=== PATIENT | female | born 1980 | race African-American/Black ===

== ENCOUNTER 2019-11-30 22:41 | Emergency (ER) | payer OTHER, SELFPAY ==
--- NOTE | ~2019-11-30 | XR_ITS ---
EXAMINATION: XR chest 2V EXAM DATE: 11/30/2019 23:05 INDICATION: Left-sided chest pain. Shortness of breath, cough, nausea and vomiting. TECHNIQUE: Frontal and lateral projections of the chest obtained and reviewed. Comparison is made to prior examination from 12/24/2018. FINDINGS: The lungs are clear. There are no pleural effusions. The cardiomediastinal silhouette is within normal limits. There is no pneumothorax suspected. Mild mid thoracic dextroscoliosis. There are cholecystectomy clips. There is no significant interval change. IMPRESSION: No acute cardiopulmonary findings. Reviewed, dictated and finalized at location G.
--- NOTE | ~2019-11-30 | CT_ITS ---
EXAMINATION: CTA chest PE abdomen pel DATE: 12/01/2019 00:26 INDICATION: Chest pain, left upper quadrant pain, nausea and vomiting TECHNIQUE: Computed tomography angiography (CTA) of the chest was performed with 100 mL Omnipaque-350 intravenous contrast timed to evaluate the pulmonary arteries. Subsequent postcontrast images of the abdomen and pelvis are obtained. Coronal maximum intensity projection 3D-reconstructions were create d by the technologist. The dose-length product (DLP) was 738.14 mGy-cm. Automated exposure control an d iterative reconstruction technique were employed. COMPARISON: 12/20/2018 FINDINGS: CTA CHEST: The pulmonary arteries are well-opacified. No pulmonary embolism is identified. The lungs are free of acute opacities. There is no pleural effusion or pneumothorax. No pathologically enlarge d thoracic lymph nodes are identified. The heart size is normal. ABDOMEN/PELVIS CT: The gallbladder is surgically absent. There is a small sliding hiatal hernia. The liver, spleen, pancreas, and adrenal glands are normal. The kidneys are unremarkable. No pathological ly enlarged abdominal or pelvic lymph nodes are identified. There is no free intraperitoneal gas or e vidence of bowel obstruction. An IUD is present in the uterus in expected position. Changes of umbili britton hernia repair are noted. There are subserosal fibroids of the uterus. The appendix is normal. IMPRESSION: 1. No pulmonary embolism or acute cardiopulmonary abnormality. 2. No acute abnormality of the abdomen or pelvis. Reviewed, dictated and finalized at location B.
--- NOTE | 2019-11-30 22:42 | ECG_ITS ---
Measurements Intervals [place] Rate: 77 P: 40 IN: 147 QRS: 5 QRSD: 80 T: 34 QT: 367 QTc: 416 Interpretive Statements SINUS RHYTHM WITH SINUS ARRHYTHMIA BASELINE ARTIFACT- I, III, AVL, AVF NORMAL ECG Electronically Signed On 12-01-2019 7:05:07 CDT by Vicente Hanks D.O.
[2019-11-30 22:46] VITALS: BP 118/78; PULSE 73; RESP 12; TEMP 37.1; O2SAT 100
--- NOTE | 2019-11-30 23:04 | ED.CHESTPAIN ---
HPI - Chest Pain General Chief Complaint: Chest Pain Stated Complaint: im having chest pains Time Seen by Provider: 11/30/19 22:47 Source: RN notes reviewed History of Present Illness HPI narrative: Patient presents emergency department from home for chest pain and back. Patient states the pain is been present for the past 3 days. The pain is located in the lower left chest and upper left abdomen and radiates into the back in the same region. Described as sharp and stabbing in nature. Patient states she began to have vomiting starting yesterday and today as well as began to have a cough today. She denies any fevers or chills diarrhea or any other symptoms. States she tried taking Tylenol 4 hours ago but threw it back up Related Data Allergies Allergy/AdvReac Type Severity Reaction Status Date / Time clindamycin Allergy Unknown Unknown Verified 11/30/19 22:41 Sulfa (Sulfonamide Allergy Unknown Unknown Verified 11/30/19 22:41 Antibiotics) Review of Systems Review of Systems: Narrative: Gen.: Denies fevers or chills ENT: Denies congestion Respiratory: Denies shortness of breath or cough CV: See HPI GI: See HPI denies burning, urgency, frequency or hematuria Musculoskeletal: Denies back pain or muscle pain Neuro: Denies numbness, tingling, weakness or focal weakness Skin: Denies rash Except as documented, all other systems reviewed and negative [facility] Past Medical History Medical History (Updated 12/01/19 @ 03:04 by Florentino Ramos DO) Patient denies significant medical history Surgical History Surgical History History of cholecystectomy Family History Family History (Updated 06/29/16 @ 08:18 by DOCTOR UNKNOWN) Mother Hypertension Family history of type 2 diabetes mellitus Father Patient's father is in good health Other Asthma Family history of thyroid disease Social History Social History Smoking status: Never smoker Second hand tobacco smoke exposure: No Alcohol intake: never Exam Narrative: Exam Narrative: APPEARANCE: No acute distress, nontoxic, resting in bed HEENT: Normocephalic, atraumatic, OMM RESPIRATORY: No respiratory distress, clear to auscultation bilaterally with no rhonchi wheezing or rales CARDIOVASCULAR: RRR s murmur ABDOMINAL: Soft, nondistended, tender palpation left upper quadrant, no tenderness right upper quadrant, right lower quadrant left lower quadrant, no rebound or guarding MUSCULOSKELETAl: Moves all extremities. No clubbing, cyanosis or edema. Back: No midline thoracic lumbar tenderness palpation, tender palpation bilateral paravertebral muscles T6-10 pain increased with movement of the torso and deep inspiration NEURO: Awake and alert. Following commands, speech normal, no focal deficits SKIN:: Warm, dry. Normal Color PSYCHIATRIC: Normal affect/mood Course Course Emergency Course: Patient states pain is improved with medication Patient having cough nausea oral test for COVID discussed with patient who is in agreement Discussed with patient results of workup and diagnosis. Discussed need for follow-up with primary care, proper use of medication, and reasons to return to the emergency department. Patient understands and agrees to current treatment plan Vital Signs Vital signs: Vital Signs Temperature 98.8 F 11/30/19 22:46 Pulse Rate 73 11/30/19 22:46 Respiratory Rate 12 11/30/19 22:46 Blood Pressure 118/78 11/30/19 22:46 Pulse Oximetry 100 11/30/19 22:46 Temperature 98.8 F 11/30/19 23:50 Pulse Rate 62 11/30/19 23:29 Respiratory Rate 14 11/30/19 23:29 Blood Pressure 120/71 11/30/19 23:29 Pulse Oximetry 100 11/30/19 23:29 MDM - Chest Pain MDM Narrative Medical decision making narrative: Patient's EKGs and labs are without significant high risk changes. Cardiac risk factors reviewed. Patient is felt li
[2019-11-30 23:06] LABS: Basophils Percent Auto 0.3 % (0.2-1.2); Eosinophils Absolute Auto 0.1 K/mm3 (0-0.3); Eosinophils Percent Auto 1.1 % (0-4.4); Hematocrit 39.1 % (37.0-47.0); Hemoglobin 13.1 g/dL (12.0-15.0); Immature Granulocyte Absolute 0.03 K/mm3 (0.00-0.031); Immature Granulocyte Percent A 0.4 % (0-0.5); Lymphocytes Absolute Auto 2.44 K/mm3 (0.9-3.2); Lymphocytes Percent Auto 30.8 % (18.3-44.2); Mean Corpuscular HGB Conc 33.5 g/dl (32-36); Mean Corpuscular Hemoglobin 30.3 pg (26-34); Mean Corpuscular Volume 90.3 fl (80-100); Mean Platelet Volume 10.7 fl (7.4-10.4); Monocytes Absolute Auto 0.4 K/mm3 (0.1-0.6); Monocytes Percent Auto 4.5 % (2.6-8.5); Neutrophils Percent Auto 62.9 % (45.5-73.1); Platelet Count Result 302 k/mm3 (150-375); Red Blood Count 4.33 M/mm3 (4.2-5.4); Red Cell Distribution Width 13.9 % (11.5-14.5); White Blood Count 7.9 K/mm3 (4.5-10.0)
[2019-11-30 23:07] VITALS: PULSE 71; O2SAT 100
[2019-11-30 23:14] LABS: Prothrombin Time 12.7 Seconds (11.1-14.7)
[2019-11-30 23:15] LABS: Anion Gap 8 mmol/L (8-16); Blood Urea Nitrogen 12 mg/dL (7-17); Carbon Dioxide 24 mmol/L (22-30); Chloride 105 mmol/L (98-107); Estimated CRCL calculation 88 ml/min; Estimated Glomerular Filt Rate > 60; Glucose 88 mg/dL (65-105); Partial Thromboplastin Time 31.3 SECONDS (22.3-36.8); Potassium 3.5 mmol/L (3.4-5.0); Sodium 137 mmol/L (137-145)
[2019-11-30] MEDS: FAMOTIDINE 20 MG/2 ML VIAL IV PUSH (23:20)
[2019-11-30] MEDS: ONDANSETRON INJ 4 MG/2 ML VIAL IV PUSH (23:20)
[2019-11-30] MEDS: KETOROLAC 30 MG/ML VIAL (*BKC) IV PUSH (23:20)
[2019-11-30] MEDS: SODIUM CHLORIDE 0.9% IV 1,000 ML 999 ML IV CONT (23:20)
[2019-11-30 23:27] LABS: Troponin I < 0.012 ng/mL (0.000-0.034)
[2019-11-30 23:28] LABS: Alanine Aminotransferase 12 U/L (4-35); Albumin Level 4.5 g/dL (3.5-5.1); Alkaline Phosphatase 105 U/L (38-126); Aspartate Amino Transferase 19 U/L (14-36); Bilirubin,Total 0.3 mg/dL (0.2-1.3); Lipase 36 U/L (23-300)
[2019-11-30 23:29] VITALS: BP 120/71; PULSE 62; RESP 14; O2SAT 100
[2019-11-30 23:30] LABS: Add Urine Microscopic? YES; Appearance Urine Clear (Clear); Bacteria Urine Trace /hpf; Bilirubin Urine Negative (Negative); Blood Urine Negative (Negative); Color Urine Yellow (Yellow); Glucose Urine UA Negative (Negative); Ketones Urine Negative (Negative); Leukocyte Esterase Ur Trace LEU/UL (Negative); Mucus Urine Rare /lpf; Nitrate Urine Negative (Negative); Protein Urine Negative (Negative); RBC Urine 0-2 /hpf (0-2); Specific Grav Ur 1.011 (1.001-1.035); Squamous Epithelial Cell Urine Few /hpf (Few); Urobilinogen Urine Negative mg/dL (<2.0); WBC Urine 0-3 /hpf
[2019-11-30 23:44] LABS: D Dimer 0.92 ug/mL (<0.48)
[2019-11-30 23:50] VITALS: TEMP 37.1
[2019-12-01 00:30] VITALS: BP 137/94; PULSE 66; RESP 14; O2SAT 100
[2019-12-01 02:00] VITALS: BP 126/85; PULSE 63; RESP 15; O2SAT 100
[2019-12-01 02:12] LABS: Troponin I < 0.012 ng/mL (0.000-0.034)
[2019-12-01] MEDS: MORPHINE SULFATE 2 MG/ML INJ IV PUSH (02:38)
[2019-12-01 03:08] VITALS: TEMP 37.1
[2019-12-01 03:21] VITALS: BP 125/79; PULSE 61; RESP 17; TEMP 36.4; O2SAT 100
[2019-12-01 14:05] LABS: SARS-CoV-2 RNA PCR Negative
== END 2019-12-01 03:24 | disposition home or self-care (01) ==
PROVIDERS: Emergency Provider Emergency Medicine; PCP Nurse Practitioner Family
DX: R07.89 Other chest pain (principal); J06.9 Acute upper respiratory infection, unspecified; R11.2 Nausea with vomiting, unspecified; Z20.828 Contact with and (suspected) exposure to other viral communicable diseases
CPT/HCPCS: 36415; 71046; 71275; 74177; 80048; 80076; 81001; 81025; 83690; 84484; 85025; 85380; 85610; 85730; 87635; 93005; 96361; 96374; 96375; 99284; A9270; C9803; J1885; J2270; J2405; J7030; Q9967; U0003

== ENCOUNTER 2020-05-12 15:10 | Emergency (ER) | payer OTHER, SELFPAY ==
--- NOTE | ~2020-05-12 | XR_ITS ---
EXAMINATION: XR knee LT 3V EXAM DATE: 05/12/2020 16:04 INDICATION: Generalized left knee pain, fell on ice 4 days ago. Initial encounter. TECHNIQUE: Left knee frontal, crosstable lateral, orthogonal oblique projections for interpretation. There is no prior study for comparison. FINDINGS: No evidence osteochondral defect or joint body in the left knee joint. There are no acute fractures or dislocations identified. There is no subcutaneous gas. The soft tissue is unremarkabl e. There are no radiopaque foreign bodies. IMPRESSION: No acute osseous findings. Reviewed, dictated and finalized at location A. 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
[2020-05-12 15:20] VITALS: BP 113/73; PULSE 89; RESP 18; TEMP 36.3; O2SAT 100
[2020-05-12] MEDS: IBUPROFEN 600 MG TABLET PO (15:54)
[2020-05-12] MEDS: HYDROcodone/acetaminophen (*CRX) 5-325 MG TABLET 1 TAB PO (15:54)
--- NOTE | 2020-05-12 16:25 | ED.LOWEXIN ---
HPI - Extremity Injury (Lower) General Chief Complaint: Extremity Injury, Lower Stated Complaint: left leg pain Time Seen by Provider: 05/12/20 15:28 Source: patient Mode of arrival: ambulatory Limitations: no limitations History of Present Illness HPI Narrative: Patient 39 years old -[place] female had a fall on ice 4 days ago landing on both knees, complaining of left knee pain. Patient denies other injuries. Related Data Home Medications Medication Instructions Recorded Confirmed No Home Medications 05/12/20 05/12/20 Allergies Allergy/AdvReac Type Severity Reaction Status Date / Time clindamycin Allergy Unknown Unknown Verified 05/12/20 15:24 Sulfa (Sulfonamide Allergy Unknown Unknown Verified 05/12/20 15:24 Antibiotics) Review of Systems Review of Systems: Narrative: CONSTITUTIONAL: Denies fever, chills, or sweats. EYES: Denies visual changes, redness, or discharge. ENT: Denies rhinorrhea, congestion, sore throat, or otalgia. CARDIOVASCULAR: Denies chest pain, palpitations, or edema. RESPIRATORY: Denies cough or dyspnea. GASTROINTESTINAL: Denies abdominal pain, nausea, vomiting, or diarrhea. GENITOURINARY: Denies dysuria or hematuria. SKIN: Denies rash or itching. MUSCULOSKELETAL: Denies back pain, joint pain, or myalgia. NEUROLOGIC: Denies headache, numbness, or weakness. PSYCHIATRIC: Denies anxiety or depression. [facility] Past Medical History Medical History Patient denies significant medical history Surgical History Surgical History History of cholecystectomy Family History Family History Mother Hypertension Family history of type 2 diabetes mellitus Father Patient's father is in good health Other Asthma Family history of thyroid disease Social History Social History Smoking status: Never smoker Second hand tobacco smoke exposure: No Alcohol intake: never Exam Narrative: Exam Narrative: Stable Course Course Emergency Course: Stable Vital Signs Vital signs: Vital Signs Temperature 36.3 C L 05/12/20 15:20 Pulse Rate 89 05/12/20 15:20 Respiratory Rate 18 05/12/20 15:20 Blood Pressure 113/73 05/12/20 15:20 Pulse Oximetry 100 05/12/20 15:20 Temperature 36.3 C L 05/12/20 15:20 Pulse Rate 89 05/12/20 15:20 Respiratory Rate 18 05/12/20 15:20 Blood Pressure 113/73 05/12/20 15:20 Pulse Oximetry 100 05/12/20 15:20 MDM - Extremity Injury (Lower) MDM Narrative Medical decision making narrative: Left knee contusion/patellar fracture is my concern. X-ray left knee ordered. Further plan to follow Imaging Data Radiologist's impression: Impressions Knee X-Ray 05/12/20 16:05 IMPRESSION: No acute osseous findings. Critical Care Time Critical Care Time Critical Care Time: No Discharge Plan Discharge Clinical Impression: Contusion of knee, left Qualifiers: Encounter type: initial encounter Qualified Code(s): S80.02XA - Contusion of left knee, initial encounter Patient Disposition: Home, Self-Care Condition: Stable Instructions: Antibiotic Form, Knee Pain (ED) Additional Instructions: Return if symptoms are worsening , call your family physician for appointment, take Tylenol as as needed for aches and pain, continue home medications. Prescriptions: No Action No Home Medications RF: 0 Follow-up/Referrals: PHYSICIAN,BOOT REPAIRER [Primary Care Provider] -
== END 2020-05-12 17:08 | disposition home or self-care (01) ==
PROVIDERS: Emergency Provider Emergency Medicine
DX: S80.02XA Contusion of left knee, initial encounter (principal); W00.0XXA Fall on same level due to ice and snow, initial encounter
CPT/HCPCS: 73562; 99283; A9270

== ENCOUNTER 2020-06-20 20:04 | Emergency (ER) | payer OTHER, SELFPAY ==
--- NOTE | ~2020-06-20 | CT_ITS ---
EXAMINATION: CT abdomen pelvis w con DATE: 06/20/2020 22:36 INDICATION: Abdominal pain. Vomiting. TECHNIQUE: Computed tomography (CT) of the abdomen and pelvis was performed with 100 mL Omnipaque 350 intravenous contrast. Automated exposure control and iterative reconstruction technique were employe d. The dose-length product was 554.19 mGy-cm. COMPARISON: CT abdomen and pelvis 12/01/2019 FINDINGS: The visualized portions of the lung bases demonstrate mild atelectasis. No pleural effusion . The heart size normal. No pericardial effusion. The liver and spleen are normal. There are changes of cholecystectomy. The pancreas, adrenal glands, and kidneys are normal. There is an intrauterine de vice in expected position. There are fibroids in the uterus measuring up to 3.4 cm. There is divertic ulosis of the colon without evidence of diverticulitis. There are no dilated loops of bowel. The appe ndix is normal. There are changes of ventral hernia repair. There are no pathologically enlarged lymp h nodes. There is no free intraperitoneal fluid. There is mild thoracic spondylosis. IMPRESSION: 1. Uterine fibroids. Reviewed, dictated and finalized at location A. IMPRESSION: 1. Uterine fibroids.
[2020-06-20 20:06] VITALS: BP 124/88; PULSE 84; RESP 18; TEMP 36.3; O2SAT 99
--- NOTE | 2020-06-20 20:10 | ECG_ITS ---
Measurements Intervals [place] Rate: 79 P: 44 GA: 151 QRS: 6 QRSD: 74 T: 53 QT: 350 QTc: 402 Interpretive Statements SINUS RHYTHM WITH MARKED SINUS ARRHYTHMIA DELAYED PRECORDIAL R/S TRANSITION BORDERLINE ECG Electronically Signed On 06-21-2020 7:08:07 CDT by Vicente Hanks D.O.
[2020-06-20 20:23] LABS: Basophils Percent Auto 0.2 % (0.2-1.2); Eosinophils Absolute Auto 0.1 K/mm3 (0-0.3); Eosinophils Percent Auto 0.7 % (0-4.4); Hematocrit 39.3 % (37.0-47.0); Immature Granulocyte Absolute 0.03 K/mm3 (0.00-0.031); Immature Granulocyte Percent A 0.4 % (0-0.5); Lymphocytes Absolute Auto 1.59 K/mm3 (0.9-3.2); Lymphocytes Percent Auto 19.2 % (18.3-44.2); Mean Corpuscular HGB Conc 33.1 g/dl (32-36); Mean Corpuscular Hemoglobin 30.2 pg (26-34); Mean Corpuscular Volume 91.4 fl (80-100); Mean Platelet Volume 10.4 fl (7.4-10.4); Monocytes Absolute Auto 0.3 K/mm3 (0.1-0.6); Monocytes Percent Auto 3.5 % (2.6-8.5); Neutrophils Absolute Auto 6.3 K/mm3 (1.3-6.7); Platelet Count Result 300 k/mm3 (150-375); Red Cell Distribution Width 14.1 % (11.5-14.5); White Blood Count 8.3 K/mm3 (4.5-10.0)
[2020-06-20 20:36] LABS: Alanine Aminotransferase 15 U/L (4-35); Albumin Level 4.3 g/dL (3.5-5.1); Alkaline Phosphatase 88 U/L (38-126); Anion Gap 6 mmol/L (8-16); Aspartate Amino Transferase 19 U/L (14-36); Bilirubin,Total < 0.1 mg/dL (0.2-1.3); Blood Urea Nitrogen 14 mg/dL (7-17); Carbon Dioxide 28 mmol/L (22-30); Chloride 104 mmol/L (98-107); Estimated CRCL calculation 70 ml/min; Estimated Glomerular Filt Rate > 60; Glucose 126 mg/dL (65-105); Lipase 59 U/L (23-300); Potassium 3.9 mmol/L (3.4-5.0); Sodium 138 mmol/L (137-145)
--- NOTE | 2020-06-20 22:11 | ED.ABDPAIN ---
HPI - Abdominal Pain General Chief Complaint: Abdominal Pain Stated Complaint: Chest Pain, ABD pain, Vomiting Time Seen by Provider: 06/20/20 21:40 Source: patient and RN notes reviewed Limitations: no limitations History of Present Illness HPI narrative: Patient is 40 years old -[place] female presents with abdominal pain for the last 2 months associated with vomiting almost daily. Patient reported abdominal pain as sharp, mid abdomen, no radiation, patient noticed decreased urination lately. Patient denies any fever or chills. No history of abdominal surgery. Patient denies smoking, drinking or drug use.. Patient reported history of IBS Related Data Allergies Allergy/AdvReac Type Severity Reaction Status Date / Time clindamycin Allergy Unknown Unknown Verified 05/12/20 15:24 Sulfa (Sulfonamide Allergy Unknown Unknown Verified 05/12/20 15:24 Antibiotics) Review of Systems Review of Systems: Narrative: CONSTITUTIONAL: Denies fever, chills, or sweats. EYES: Denies visual changes, redness, or discharge. ENT: Denies rhinorrhea, congestion, sore throat, or otalgia. CARDIOVASCULAR: Denies chest pain, palpitations, or edema. RESPIRATORY: Denies cough or dyspnea. GASTROINTESTINAL: Denies abdominal pain, nausea, vomiting, or diarrhea. GENITOURINARY: Denies dysuria or hematuria. SKIN: Denies rash or itching. MUSCULOSKELETAL: Denies back pain, joint pain, or myalgia. NEUROLOGIC: Denies headache, numbness, or weakness. PSYCHIATRIC: Denies anxiety or depression. PMFSH Past Medical History Medical History Patient denies significant medical history Surgical History Surgical History History of cholecystectomy Family History Family History Mother Hypertension Family history of type 2 diabetes mellitus Father Patient's father is in good health Other Asthma Family history of thyroid disease Social History Social History Smoking status: Never smoker Second hand tobacco smoke exposure: No Alcohol intake: never Exam Narrative: Exam Narrative: General appearance: Well-developed, well-nourished Skin: Normal color Head: Normocephalic, nontraumatic Eyes: Clear conjunctiva ENT: Oropharynx normal, ears normal, nose normal Neck: Supple, nontender Chest and respiratory: Airway patent, no respiratory distress, no accessory muscle use Heart: Regular rate/rhythm Abdomen: Soft, diffuse tenderness no guarding or rebound, no organomegaly, quiet bowel sounds Vascular: Normal peripheral pulses, normal capillary refill. Musculoskeletal: Normal range of motion, nontender back Neurologic: Alert and oriented ?3, CLIENT INSIGHTS CONSULTANT is normal as tested, no gross motor deficit Course Course Emergency Course: Stable Vital Signs Vital signs: Vital Signs Temperature 36.3 C L 06/20/20 20:06 Pulse Rate 84 06/20/20 20:06 Respiratory Rate 18 06/20/20 20:06 Blood Pressure 124/88 06/20/20 20:06 Pulse Oximetry 99 06/20/20 20:06 Temperature 36.3 C L 06/20/20 20:06 Pulse Rate 80 06/20/20 23:20 Respiratory Rate 18 06/20/20 23:20 Blood Pressure 124/88 06/20/20 20:06 Pulse Oximetry 100 06/20/20 23:20 MDM - Abdominal Pain MDM Narrative Medical decision making narrative: Patient presents with abdominal pain for the last 2 months associated with vomiting. Labs, IV fluid, CT abdomen and pelvis with IV contrast ordered. Further plan to follow Differential Diagnosis Differential diagnosis: Likely abdominal pain, acute appendicitis
[2020-06-20] MEDS: SODIUM CHLORIDE 0.9% IV 1,000 ML 999 ML IV CONT (22:18)
[2020-06-20] MEDS: HYDROmorphone HCL INJ (*CRX) 1 MG/ML SYR 0.5 MG IV PUSH (22:19)
[2020-06-20] MEDS: ONDANSETRON INJ 4 MG/2 ML VIAL IV PUSH (22:19)
[2020-06-20 22:43] LABS: Add Urine Microscopic? YES; Appearance Urine Cloudy (Clear); Bacteria Urine Trace /hpf; Bilirubin Urine Negative (Negative); Blood Urine Negative (Negative); Color Urine Yellow (Yellow); Glucose Urine UA Negative (Negative); Ketones Urine Negative (Negative); Leukocyte Esterase Ur Negative LEU/UL (Negative); Mucus Urine Rare /lpf; Nitrate Urine Negative (Negative); Protein Urine Negative (Negative); RBC Urine 0-2 /hpf (0-2); Specific Grav Ur 1.019 (1.001-1.035); Squamous Epithelial Cell Urine Moderate /hpf (Few); WBC Urine 0-3 /hpf
[2020-06-20 23:20] VITALS: PULSE 80; RESP 18; O2SAT 100
[2020-06-21] MEDS: LORazepam INJ (*CRX) 2 MG/ML VIAL 0.5 MG IV PUSH (00:15)
[2020-06-21 00:20] VITALS: BP 139/84; PULSE 70; RESP 19; O2SAT 100
== END 2020-06-21 00:20 | disposition home or self-care (01) ==
PROVIDERS: Emergency Medicine; Emergency Provider Emergency Medicine
DX: R10.84 Generalized abdominal pain (principal); D25.9 Leiomyoma of uterus, unspecified
CPT/HCPCS: 36415; 74177; 80053; 81001; 81025; 83690; 85025; 93005; 96361; 96374; 96375; 99284; J1170; J2060; J2405; J7030; Q9967

== ENCOUNTER 2020-10-04 22:52 | Emergency (ER) | payer OTHER, SELFPAY ==
--- NOTE | ~2020-10-04 | XR_ITS ---
EXAMINATION: XR thoracic spine 2V DATE: 10/05/2020 01:43 INDICATION: Back pain TECHNIQUE: AP and lateral views of the thoracic spine were obtained. COMPARISON: 09/28/2017 FINDINGS: There are 12 degrees of thoracic dextrocurvature. Vertebral body heights and alignment are normal. The intervertebral disc space heights are normal. Small degenerative osteophytes project from the anterior endplates of multiple vertebral bodies. Surgical clips in the right upper quadrant are likely from prior cholecystectomy. IMPRESSION: 1. Mild thoracic spondylosis without acute findings. Reviewed, dictated and finalized at location A.
--- NOTE | ~2020-10-04 | XR_ITS ---
EXAMINATION:XR cervical spine 4-5V DATE: 10/05/2020 02:10 INDICATION: Neck pain TECHNIQUE: AP, lateral, lateral swimmers and odontoid views of the cervical spine are provided. COMPARISON: 09/28/2017 FINDINGS: Alignment is normal. The odontoid is intact. No fracture is identified. Vertebral body heig hts and disk spaces are normal. Prevertebral soft tissues are normal. There is mild multilevel facet osteoarthritis. IMPRESSION: 1. No acute osseous abnormality. Reviewed, dictated and finalized at location A.
--- NOTE | ~2020-10-04 | XR_ITS ---
EXAMINATION: XR lumbar spine 2-3V DATE: 10/05/2020 01:42 INDICATION: Low back pain TECHNIQUE: Anteroposterior and lateral views of the lumbar spine, and cone-down lateral view of the l umbosacral junction were obtained. COMPARISON: 09/28/2017 FINDINGS: There is no fracture, dislocation, or subluxation. The vertebral body heights and intervert ebral disc space heights are maintained. Small degenerative osteophytes project from the anterior end plates of multiple vertebral bodies. Surgical clips in the right upper quadrant are likely from prior cholecystectomy. IUD is noted. There are phleboliths of the pelvis. The bowel gas pattern is normal. IMPRESSION: 1. No acute osseous abnormality. Reviewed, dictated and finalized at location A.
[2020-10-04 23:11] VITALS: BP 132/79; PULSE 100; RESP 18; TEMP 36.6; O2SAT 100
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
[2020-10-05 02:28] VITALS: BP 115/74; PULSE 91; RESP 16; O2SAT 100
== END 2020-10-05 02:30 | disposition home or self-care (01) ==
PROVIDERS: Emergency Provider Emergency Medicine; PCP Physician Assistant
DX: S39.012A Strain of muscle, fascia and tendon of lower back, initial encounter (principal); S29.012A Strain of muscle and tendon of back wall of thorax, initial encounter; S16.1XXA Strain of muscle, fascia and tendon at neck level, initial encounter; V49.50XA Passenger injured in collision with unspecified motor vehicles in traffic accident, initial encounter
CPT/HCPCS: 72040; 72050; 72070; 72100; 81025; 99284

== ENCOUNTER 2021-03-11 17:21 | Emergency (ER) | payer OTHER, SELFPAY ==
--- NOTE | ~2021-03-11 | XR_ITS ---
EXAMINATION: XR chest 1V portable DATE: 03/12/2021 00:22 INDICATION: Cough. Nausea, vomiting, and diarrhea. TECHNIQUE: A single frontal view of the chest was obtained. COMPARISON: Chest 2 views 11/30/2019, CT abdomen and pelvis 06/20/2020 FINDINGS: The patient is rotated to her left. There is no pneumonia, pleural effusion, or pneumothora x. The heart size is normal. Surgical clips in the right upper quadrant are likely from cholecystecto my. IMPRESSION: 1. No acute cardiopulmonary disease. Reviewed, dictated and finalized at location A. [employer] ASSOCIATE
[2021-03-11 17:23] VITALS: BP 120/78; PULSE 65; RESP 18; TEMP 35.8; O2SAT 97
[2021-03-11 19:17] VITALS: BP 114/75; PULSE 90; TEMP 36; O2SAT 100
[2021-03-11] MEDS: SODIUM CHLORIDE 0.9% IV 1,000 ML 999 ML IV CONT (20:43)
[2021-03-11] MEDS: METOCLOPRAMIDE HCL INJ 10 MG/2 ML VIAL IV PUSH (20:43)
--- NOTE | 2021-03-11 20:49 | ED.GENADULT ---
HPI - General Adult General Chief complaint: Nausea/Vomiting/Diarrhea Stated complaint: n/v, neg covid test Time Seen by Provider: 03/11/21 20:27 Source: patient and RN notes reviewed History of Present Illness HPI narrative: Patient is a 40 y/o female complaining of nausea and vomiting since yesterday. She states that she vomited up food and liquid. There is no alleviating or exacerbating factor. She has some burning pain in chest pain and back pain. She has no significant abdominal pain. Related Data Allergies Allergy/AdvReac Type Severity Reaction Status Date / Time clindamycin Allergy Unknown Unknown Verified 10/05/20 00:34 Sulfa (Sulfonamide Allergy Unknown Unknown Verified 10/05/20 00:34 Antibiotics) Review of Systems Constitutional: Constitutional: Denies chills, Denies fever(s), Denies headache(s) and Denies weakness Eyes: Eyes: Denies blurry vision ENT: Denies headache(s) and Denies neck pain Cardiovascular: Cardiovascular: Reports chest pain and Denies dyspnea Respiratory: Respiratory: Denies cough and Denies dyspnea Gastrointestinal: Gastrointestinal: Denies abdominal pain, Denies diarrhea, Reports nausea and Reports vomiting Genitourinary: Genitourinary: Denies hematuria and Denies dysuria Musculoskeletal: Musculoskeletal: Reports back pain and Denies neck pain Neurologic: Denies headache(s) and Denies weakness PMFSH Past Medical History Medical History Patient denies significant medical history Surgical History Surgical History History of cholecystectomy Family History Family History Mother Hypertension Family history of type 2 diabetes mellitus Father Patient's father is in good health Other Asthma Family history of thyroid disease Social History Social History Smoking status: Never smoker Second hand tobacco smoke exposure: No Alcohol intake: never Exam Const: General: no acute distress and well developed Orientation/consciousness: oriented to person, oriented to place, oriented to time and patient oriented x3 HENMT: Head: normocephalic Ears: external ears normal General nose exam: Normal external nose present Eyes: General: appearance normal, both eyes and all related structures Conjunctivae: conjunctivae normal Neck: Neck: normal visual inspection and full ROM Chest: Chest palpation & inspection: normal inspection of the chest and no tenderness Resp: Effort & Inspection: normal respiratory effort Auscultation: clear to auscultation bilaterally Cardio: Rate: regular rate Rhythm: regular rhythm GI: GI Palp: No abdominal tenderness and Yes Soft to palpation Skin: General skin exam: normal color and turgor normal Neuro: General: oriented to person, oriented to place, oriented to time and patient oriented x3 Cognition (Neuro): normal cognition Extrem: General: normal to inspection, full ROM and no pedal edema Psych: Appearance: grossly normal Mental Status: mental status grossly normal Affect: normal affect Course Reevaluation(s) Reevaluation #1: Rechecked. Patient states that her vomiting is better, but she started to cough. Will order xray. Offered COVID test, but patient declined. Date: 03/12/21 Time: 00:03 Vital Signs Vital signs: Vital Signs Temperature 35.8 C L 03/11/21 17:23 Pulse Rate 65 03/11/21 17:23 Respiratory Rate 18 03/11/21 17:23 Blood Pressure 120/78 03/11/21 17:23 Pulse Oximetry 97 03/11/21 17:23 Temperature 36.0 C L 03/11/21 19:17 Pulse Rate 70 03/12/21 01:24 Respiratory Rate 18 03/12/21 01:24 Blood Pressure 111/67 03/12/21 01:24 Pulse Oximetry 100 03/11/21 19:17 Medical Decision Making Vital Signs Vital Signs: Vital Signs Temperature 35.8 C L 03/11/21 17:23 Pulse Rate 65
[2021-03-11 21:00] LABS: Basophils Percent Auto 0.4 % (0.2-1.2); Eosinophils Absolute Auto 0.1 K/mm3 (0-0.3); Eosinophils Percent Auto 0.8 % (0-4.4); Hematocrit 41.5 % (37.0-47.0); Hemoglobin 14.2 g/dL (12.0-15.0); Immature Granulocyte Absolute 0.02 K/mm3 (0.00-0.031); Immature Granulocyte Percent A 0.2 % (0-0.5); Lymphocytes Absolute Auto 2.03 K/mm3 (0.9-3.2); Lymphocytes Percent Auto 23.8 % (18.3-44.2); Mean Corpuscular HGB Conc 34.2 g/dl (32-36); Mean Corpuscular Hemoglobin 30.2 pg (26-34); Mean Corpuscular Volume 88.3 fl (80-100); Mean Platelet Volume 10.9 fl (7.4-10.4); Monocytes Absolute Auto 0.4 K/mm3 (0.1-0.6); Monocytes Percent Auto 5.2 % (2.6-8.5); Neutrophils Percent Auto 69.6 % (45.5-73.1); Platelet Count Result 294 k/mm3 (150-375); Red Cell Distribution Width 13.7 % (11.5-14.5); White Blood Count 8.5 K/mm3 (4.5-10.0)
[2021-03-11 21:14] LABS: Alanine Aminotransferase 15 U/L (4-35); Albumin Level 4.7 g/dL (3.5-5.1); Alkaline Phosphatase 113 U/L (38-126); Anion Gap 13 mmol/L (8-16); Aspartate Amino Transferase 19 U/L (14-36); Bilirubin,Total 0.8 mg/dL (0.2-1.3); Blood Urea Nitrogen 13 mg/dL (7-17); Calcium 9.6 mg/dL (8.4-10.2); Carbon Dioxide 20 mmol/L (22-30); Chloride 105 mmol/L (98-107); Estimated Glomerular Filt Rate > 60; Glucose 99 mg/dL (65-110); Lipase 33 U/L (23-300); Potassium 3.3 mmol/L (3.4-5.0); Sodium 138 mmol/L (137-145)
[2021-03-11] MEDS: POTASSIUM CHLORIDE 20 MEQ TABLET PO (21:36)
[2021-03-11 22:48] LABS: Add Urine Microscopic? YES; Appearance Urine Cloudy (Clear); Bacteria Urine 1+ /hpf; Bilirubin Urine Negative (Negative); Blood Urine Negative (Negative); Color Urine Yellow (Yellow); Glucose Urine UA Negative (Negative); Ketones Urine 1+ mg/dL (Negative); Leukocyte Esterase Ur Negative LEU/UL (Negative); Mucus Urine Few /lpf; Nitrate Urine Negative (Negative); Protein Urine 1+ mg/dL (Negative); Specific Grav Ur 1.023 (1.001-1.035); Squamous Epithelial Cell Urine Many /hpf (Few); WBC Urine 0-3 /hpf
[2021-03-12 01:24] VITALS: BP 111/67; PULSE 70; RESP 18
== END 2021-03-12 01:25 | disposition home or self-care (01) ==
PROVIDERS: Emergency Provider Emergency Medicine; PCP Physician Assistant
DX: K29.70 Gastritis, unspecified, without bleeding (principal); J06.9 Acute upper respiratory infection, unspecified
CPT/HCPCS: 36415; 71045; 80053; 81001; 81025; 83690; 85025; 96361; 96374; 99284; A9270; J2765; J7030

== ENCOUNTER 2021-11-16 22:34 | Emergency (ER) | payer OTHER, SELFPAY ==
--- NOTE | ~2021-11-16 | XR_ITS ---
EXAMINATION: XR knee LT 3V DATE: 11/17/2021 01:15 INDICATION: Left knee pain TECHNIQUE: Three views of the left knee were obtained. COMPARISON: None. FINDINGS: Alignment is normal. No fracture or osteochondral lesion. There is mild tricompartmental os teoarthritis characterized by tiny marginal osteophytes. No joint effusion/synovitis. Soft tissues a re unremarkable. IMPRESSION: 1. No acute osseous abnormality. Reviewed, dictated and finalized at location A.
[2021-11-16 23:01] VITALS: BP 128/61; PULSE 81; RESP 16; TEMP 36.3; O2SAT 100
[2021-11-17 00:28] VITALS: BP 131/78; PULSE 84; RESP 15; O2SAT 100
[2021-11-17 00:32] VITALS: BP 106/60; PULSE 78; RESP 20; O2SAT 100
[2021-11-17 00:46] VITALS: BP 124/77; PULSE 74; RESP 15; O2SAT 98
[2021-11-17 01:02] VITALS: BP 121/77; PULSE 79; RESP 19; O2SAT 100
--- NOTE | 2021-11-17 01:42 | ECG_ITS ---
Measurements Intervals Bazine Rate: 68 P: 40 ME: 158 QRS: 5 QRSD: 80 T: 39 QT: 379 QTc: 403 Interpretive Statements SINUS RHYTHM WITH MARKED SINUS ARRHYTHMIA LOW QRS VOLTAGE IN PRECORDIAL LEADS [QRS DEFLECTION < 1.0 mV IN CHEST LEADS] COMPARED TO ECG 06/20/2020 20:16:04 NO SIGNIFICANT CHANGES Electronically Signed On 11-17-2021 16:56:34 CDT by Helio Wong M.D.
--- NOTE | 2021-11-17 01:43 | ED.GENADULT ---
HPI - General Adult General Chief complaint: Unspecified Stated complaint: swollen feet Time Seen by Provider: 11/17/21 00:39 History of Present Illness HPI narrative: Patient 41-year-old female who presents emergency department with chief complaint of lower extremity edema left knee pain and feeling tired. Patient states that over the last several days she has noticed that her legs feel tight and feels swollen. Patient states she is also had pain in the left knee reports no shortness of breath does report that she has been exhausted and feeling extremely tired. Patient denies vomiting denies chest pain reports that she has had problems with anemia before in the past and reports that she has been on iron supplementation. Patient denies fever denies diarrhea. Related Data Allergies Allergy/AdvReac Type Severity Reaction Status Date / Time clindamycin Allergy Unknown Unknown Verified 10/05/20 00:34 Sulfa (Sulfonamide Allergy Unknown Unknown Verified 10/05/20 00:34 Antibiotics) Review of Systems Review of Systems: A 10 system review of systems was completed on the patient and is negative except for what is stated in the HPI. Nursing and ancillary documentation was reviewed. PMFSH Past Medical History Medical History Patient denies significant medical history Surgical History Surgical History History of cholecystectomy Family History Family History Mother Hypertension Family history of type 2 diabetes mellitus Father Patient's father is in good health Other Asthma Family history of thyroid disease Social History Social History Smoking status: Never smoker Second hand tobacco smoke exposure: No Alcohol intake: never Exam Narrative: GENERAL: Well-appearing, well-nourished, and in no acute distress. HEAD: Normocephalic, atraumatic. EYES: PERRLA and EOMI. ENT: Nares clear, no rhinorrhea or epistaxis. Mucous membranes moist. NECK: Supple. CHEST: Clear to auscultation. No respiratory distress. HEART: Regular rate and rhythm. No murmur heard. Normal peripheral pulses. ABDOMEN: Soft, nontender, nondistended, normal active bowel sounds. EXTREMITIES: Normal range of motion. Trace nonpitting edema. SKIN: Warm, dry, no rash. NEURO: No focal deficits. Alert and oriented x3. PSYCH: Normal mood and affect. Course Vital Signs Vital signs: Vital Signs Temperature 36.3 C L 11/16/21 23:01 Pulse Rate 81 11/16/21 23:01 Respiratory Rate 16 11/16/21 23:01 Blood Pressure 128/61 11/16/21 23:01 Pulse Oximetry 100 11/16/21 23:01 Oxygen Delivery Room Air 11/16/21 23:01 Temperature 36.3 C L 11/16/21 23:01 Pulse Rate 79 11/17/21 01:02 Respiratory Rate 19 11/17/21 01:02 Blood Pressure 121/77 11/17/21 01:02 Pulse Oximetry 100 11/17/21 01:02 Oxygen Delivery Room Air 11/16/21 23:01 Medical Decision Making Vital Signs Vital Signs: Vital Signs Temperature 36.3 C L 11/16/21 23:01 Pulse Rate 81 11/16/21 23:01 Respiratory Rate 16 11/16/21 23:01 Blood Pressure 128/61 11/16/21 23:01 Pulse Oximetry 100 11/16/21 23:01 Oxygen Delivery Room Air 11/16/21 23:01 Temperature 36.3 C L 11/16/21 23:01 Pulse Rate 79 11/17/21 01:02 Respiratory Rate 19 11/17/21 01:02 Blood Pressure 121/77 11/17/21 01:02 Pulse Oximetry 100 11/17/21 01:02 Oxygen Delivery Room Air 11/16/21 23:01 Lab Data Result diagrams: 11/17/21 01:52 11/17/21 01:52 Labs: Lab Results 11/17/21 11/17/21 11/17/21 Range/Units 01:50 01:52 01:52 WBC 7.7 (4.5-10.0) K/mm3 RBC 4.22 (4.2-5.4) M/mm3 Hgb 12.7 (12.0-15.0) g/dL Hct 38.6 (37.0-47.0) % MCV 91.5 (80-100) fl [facility]
[2021-11-17 01:58] LABS: Appearance Urine Clear (Clear); Bilirubin Urine Negative (Negative); Color Urine Yellow (Yellow); Glucose Urine UA Negative (Negative); Ketones Urine Negative (Negative); Leukocyte Esterase Ur Negative LEU/UL (Negative); Nitrate Urine Negative (Negative); Protein Urine Negative (Negative); Urobilinogen Urine 0.2 mg/dL (<2.0); pH Urine 6.5 (5.0-9.0)
[2021-11-17 01:58] LABS: Basophils Percent Auto 0.4 % (0.2-1.2); Eosinophils Absolute Auto 0.1 K/mm3 (0-0.3); Eosinophils Percent Auto 1.6 % (0-4.4); Hematocrit 38.6 % (37.0-47.0); Hemoglobin 12.7 g/dL (12.0-15.0); Immature Granulocyte Absolute 0.02 K/mm3 (0.00-0.031); Immature Granulocyte Percent A 0.3 % (0-0.5); Lymphocytes Absolute Auto 2.43 K/mm3 (0.9-3.2); Lymphocytes Percent Auto 31.6 % (18.3-44.2); Mean Corpuscular HGB Conc 32.9 g/dl (32-36); Mean Corpuscular Hemoglobin 30.1 pg (26-34); Mean Corpuscular Volume 91.5 fl (80-100); Monocytes Absolute Auto 0.4 K/mm3 (0.1-0.6); Monocytes Percent Auto 5.3 % (2.6-8.5); Neutrophils Absolute Auto 4.7 K/mm3 (1.3-6.7); Neutrophils Percent Auto 60.8 % (45.5-73.1); Platelet Count Result 306 k/mm3 (150-375); Red Blood Count 4.22 M/mm3 (4.2-5.4); Red Cell Distribution Width 14.6 % (11.5-14.5); White Blood Count 7.7 K/mm3 (4.5-10.0)
[2021-11-17 02:02] LABS: Bacteria Urine 1+ /hpf; Mucus Urine Rare /lpf; Squamous Epithelial Cell Urine Moderate /hpf (Few); WBC Urine 0-3 /hpf
[2021-11-17 02:08] LABS: Alanine Aminotransferase 19 U/L (6-35); Albumin Level 3.7 g/dL (3.5-5.1); Alkaline Phosphatase 77 U/L (38-126); Anion Gap 8 mmol/L (8-16); Aspartate Amino Transferase 20 U/L (14-36); Bilirubin,Total 0.1 mg/dL (0.2-1.3); Blood Urea Nitrogen 10 mg/dL (7-17); Calcium 8.5 mg/dL (8.4-10.2); Carbon Dioxide 27 mmol/L (22-30); Chloride 103 mmol/L (98-107); Estimated CRCL calculation 96 ml/min; Estimated Glomerular Filt Rate > 60; Glucose 125 mg/dL (65-110); Potassium 3.4 mmol/L (3.4-5.0); Sodium 138 mmol/L (137-145)
[2021-11-17 02:10] LABS: Prothrombin Time 12.3 Seconds (11.1-14.7)
[2021-11-17 02:13] LABS: Add Urine Microscopic? YES; Blood Urine Trace-Intact (Negative)
[2021-11-17 02:18] LABS: NT Pro B Type Natriuretic Pept 49 pg/mL (5-100)
[2021-11-17] MEDS: FUROSEMIDE 20 MG TABLET PO (03:46)
[2021-11-17 03:52] VITALS: BP 128/76; PULSE 75; RESP 20; O2SAT 96
== END 2021-11-17 03:53 | disposition home or self-care (01) ==
PROVIDERS: Emergency Provider Emergency Medicine; PCP Physician Assistant
DX: R60.0 Localized edema (principal); M25.562 Pain in left knee; R94.31 Abnormal electrocardiogram [ECG] [EKG]
CPT/HCPCS: 36415; 73562; 80053; 81001; 81025; 83735; 83880; 84443; 85025; 85610; 85730; 93005; 99283; A9270

== ENCOUNTER 2021-11-17 14:09 | Outpatient (CLI) | payer OTHER, SELFPAY ==
--- NOTE | ~2021-11-17 | US_ITS ---
EXAMINATION: US venous doppler [facility] DATE: 11/17/2021 15:53 INDICATION: PAIN AND SWELLING . TECHNIQUE: Grayscale images without and with compression and Doppler images of the bilateral lower ex tremity veins were obtained. COMPARISON: None FINDINGS: The right common femoral vein, profunda (deep) femoral vein, femoral vein, popliteal vein, peroneal v ein, posterior tibial veins, gastrocnemius vein, and greater saphenous vein are patent. The left common femoral vein, profunda femoral vein, femoral vein, popliteal vein, peroneal vein, pos terior tibial veins, gastrocnemius vein, and greater saphenous vein are patent. IMPRESSION: 1. Patent bilateral lower extremity veins. No evidence of deep venous thrombosis. Reviewed, dictated and finalized at location K. IMPRESSION: 1. Patent bilateral lower extremity veins. No evidence of deep venous thrombos is.
== END 2021-11-17 14:10 | disposition home or self-care (01) ==
PROVIDERS: PCP Physician Assistant; Visit Provider Physician Assistant
DX: M79.89 Other specified soft tissue disorders (principal)
CPT/HCPCS: 93970

== ENCOUNTER 2022-08-26 17:22 | Emergency (ER) | payer OTHER, SELFPAY ==
[2022-08-26] VITALS (13 sets, daily range): BP systolic 105–143; BP diastolic 64–81; PULSE 74–103; RESP 14–18; TEMP 36.7; O2SAT 97–100
--- NOTE | ~2022-08-26 | CT_ITS ---
EXAMINATION: CT abdomen pelvis w con INDICATION: Lower abdominal pain, nausea and vomiting TECHNIQUE: Computed tomographic images of the abdomen and pelvis were obtained after the administrati on of 100 cc of Omnipaque 350 intravenous contrast. The dose-length product (DLP) was 620.44 mGy-cm. Automated exposure control and iterative reconstruction technique were employed. COMPARISON: 06/20/2020 FINDINGS: The lung bases are clear. The heart size is normal. The gallbladder is surgically absent. T he liver, spleen, pancreas, and adrenal glands are normal. The kidneys are unremarkable. No pathologi lashonda enlarged abdominal or pelvic lymph nodes are identified. No free intraperitoneal gas or evidenc e of bowel obstruction. The appendix is normal. Uterine fibroids are again noted. There are changes o f ventral hernia repair. IMPRESSION: 1. No CT correlate for the patient's symptoms. Reviewed, dictated and finalized at location F.
[2022-08-26 17:56] LABS: Basophils Percent Auto 0.4 % (0.2-1.2); Eosinophils Absolute Auto 0.1 K/mm3 (0-0.3); Eosinophils Percent Auto 1.5 % (0-4.4); Hematocrit 38.9 % (37.0-47.0); Hemoglobin 12.9 g/dL (12.0-15.0); Immature Granulocyte Absolute 0.02 K/mm3 (0.00-0.031); Immature Granulocyte Percent A 0.3 % (0-0.5); Lymphocytes Absolute Auto 2.04 K/mm3 (0.9-3.2); Lymphocytes Percent Auto 26.2 % (18.3-44.2); Mean Corpuscular HGB Conc 33.2 g/dl (32-36); Mean Corpuscular Hemoglobin 30.6 pg (26-34); Mean Corpuscular Volume 92.2 fl (80-100); Mean Platelet Volume 10.6 fl (7.4-10.4); Monocytes Absolute Auto 0.3 K/mm3 (0.1-0.6); Neutrophils Absolute Auto 5.3 K/mm3 (1.3-6.7); Neutrophils Percent Auto 67.6 % (45.5-73.1); Platelet Count Result 274 k/mm3 (150-375); Red Blood Count 4.22 M/mm3 (4.2-5.4); Red Cell Distribution Width 14.5 % (11.5-14.5); White Blood Count 7.8 K/mm3 (4.5-10.0)
[2022-08-26 18:01] LABS: Alanine Aminotransferase 20 U/L (6-35); Albumin Level 3.6 g/dL (3.5-5.1); Alkaline Phosphatase 57 U/L (38-126); Anion Gap 3 mmol/L (8-16); Aspartate Amino Transferase 18 U/L (14-36); Bilirubin,Total 0.3 mg/dL (0.2-1.3); Blood Urea Nitrogen 12 mg/dL (7-17); Calcium 8.3 mg/dL (8.4-10.2); Carbon Dioxide 29 mmol/L (22-30); Chloride 107 mmol/L (98-107); Estimated CRCL calculation 81 ml/min; Estimated Glomerular Filt Rate > 60; Glucose 112 mg/dL (65-110); Lipase 44 U/L (23-300); Potassium 3.6 mmol/L (3.4-5.0); Sodium 139 mmol/L (137-145)
--- NOTE | 2022-08-26 18:26 | ED.NAVMDI ---
HPI - Nausea/Vomiting/Diarrhea General Chief complaint: Nausea/Vomiting/Diarrhea <CHESTER Cordero Last Filed: 08/27/22 01:06> Stated complaint: N/V/D <CHESTER Cordero Last Filed: 08/27/22 01:06> Time Seen by Provider: 08/26/22 17:34 <CHESTER Cordero Last Filed: 08/27/22 01:06> Source: patient and old records reviewed <CHESTER Cordero Last Filed: 08/27/22 01:06> Mode of arrival: ambulatory <CHESTER Cordero Filed: 08/27/22 01:06> Limitations: no limitations <CHESTER Cordero Last Filed: 08/27/22 01:06> History of Present Illness HPI Narrative: Patient is a 42-year-old female who presents to the ED with report of nausea and vomiting. Patient reports she has had persistent nausea and vomiting every morning for the last few weeks. Over the last 2 days she has had more persistent vomiting, unable to keep anything down. She has several other complaints, including dysuria, headache, pain in her low back, lower abdominal pain, and recent constipation which was improved with MiraLAX. She denies any hematuria, rectal bleeding, melena, neck pain, fevers. She has not taken anything for symptoms she been unable to keep anything down. Per patient's records, she has been seen in the ED for similar nausea and vomiting several times. <CHESTER Cordero Last Filed: 08/27/22 01:06> Related Data Allergies/Adverse reactions: Allergies Allergy/AdvReac Type Severity Reaction Status Date / Time clindamycin Allergy Unknown Unknown Verified 10/05/20 00:34 Sulfa (Sulfonamide Allergy Unknown Unknown Verified 10/05/20 00:34 Antibiotics) <CHESTER Cordero Last Filed: 08/27/22 01:06> Review of Systems Review of Systems: CONSTITUTIONAL: Denies fever, chills, or sweats. CARDIOVASCULAR: Denies chest pain. RESPIRATORY: Denies dyspnea. GASTROINTESTINAL: See HPI. GENITOURINARY: See HPI. SKIN: Denies rash or itching. MUSCULOSKELETAL: See HPI. NEUROLOGIC: See HPI. <Ema Brooks PA-C - Last Filed: 08/27/22 01:06> All systems reviewed & are unremarkable except as noted in HPI and below <Ema Brooks PA-C - Last Filed: 08/27/22 01:06> [facility] Past Medical History Medical History: Medical History Patient denies significant medical history <Ema Brooks PA-C - Last Filed: 08/27/22 01:06> Surgical History Surgical History: Surgical History History of cholecystectomy <Ema Brooks PA-C - Last Filed: 08/27/22 01:06> Family History Family History: Family History Mother Hypertension Family history of type 2 diabetes mellitus Father Patient's father is in good health Other Asthma Family history of thyroid disease <Ema Brooks PA-C - Last Filed: 08/27/22 01:06> Social History Social History: Social History Smoking status: Never smoker Second hand tobacco smoke exposure: No Alcohol intake: never <Ema Brooks PA-C - Last Filed: 08/27/22 01:06> Exam Narrative: GENERAL: Well appearing, obese with BMI of 34.2, non-toxic, in no acute distress. HEAD: Normocephalic, atraumatic. NECK: Supple. No adenopathy, no masses. RESPIRATORY: Airway patent, respirations nonlabored. Clear to auscultation bilaterally, no rales, rhonchi, wheezing. CARDIOVASCULAR: Regular rate and rhythm without murmurs, rubs, or gallops. Peripheral pulses 2+ and equal bilaterally. ABDOMINAL: Soft, mild tenderness across lower abdomen, no focal tenderness, nondistended, no hepatosplenomegaly. Normoactive BS. MUSCULOSKELETAL: Moves all extremities. Strength/ROM intact without gross deformities. Mild tendern
[2022-08-26] MEDS: SODIUM CHLORIDE 0.9% IV 1,000 ML 999 ML IV CONT (18:28)
[2022-08-26] MEDS: PANTOPRAZOLE SODIUM IV 40 MG VIAL IV PUSH (18:29)
[2022-08-26] MEDS: ONDANSETRON INJ 4 MG/2 ML VIAL IV PUSH (18:29)
[2022-08-26 18:45] LABS: Appearance Urine Clear (Clear); Bilirubin Urine Negative (Negative); Blood Urine Negative (Negative); Color Urine Yellow (Yellow); Glucose Urine UA Negative (Negative); Ketones Urine Negative (Negative); Leukocyte Esterase Ur Negative LEU/UL (Negative); Nitrate Urine Negative (Negative); Protein Urine Negative (Negative); Specific Grav Ur 1.022 (1.001-1.035); Urobilinogen Urine 0.2 mg/dL (<2.0)
[2022-08-26 18:52] LABS: Add Urine Microscopic? NO
--- NOTE | 2022-08-26 19:14 | PC.NURSE ---
Patient report given to PEPITO Kaufman. All questions answered and care of patient transferred.
[2022-08-26] MEDS: KETOROLAC 30 MG/ML VIAL (*BKC) IV PUSH (20:15)
== END 2022-08-26 21:10 | disposition home or self-care (01) ==
PROVIDERS: Emergency Medicine; Emergency Provider Physician Assistant; PCP Physician Assistant
DX: R11.2 Nausea with vomiting, unspecified (principal); R10.30 Lower abdominal pain, unspecified; R51.9 Headache, unspecified; Z90.49 Acquired absence of other specified parts of digestive tract
CPT/HCPCS: 36415; 74177; 80053; 81003; 81025; 83690; 85025; 96361; 96374; 96375; 99284; C9113; J1885; J2405; J7030; Q9967

== ENCOUNTER 2023-05-11 16:32 | Emergency (ER) | payer OTHER, SELFPAY ==
[2023-05-11] VITALS (11 sets, daily range): BP systolic 107–158; BP diastolic 65–96; PULSE 56–74; RESP 12–20; TEMP 36.2–36.6; O2SAT 97–100
--- NOTE | ~2023-05-11 | US_ITS ---
EXAMINATION: US pelvic complete w TV DATE: 05/11/2023 23:46 INDICATION: Left lower quadrant abdominal pain. TECHNIQUE: Multiple transabdominal and transvaginal sonographic images of the pelvis were obtained. COMPARISON: CT abdomen and pelvis 05/11/2023 FINDINGS: TRANSABDOMINAL ULTRASOUND: The uterus measures 8.0 x 5.4 x 4.8 cm. There is no free fluid in the pelvis. TRANSVAGINAL ULTRASOUND: The endometrial complex measures 3 mm in thickness. There is a 2.4 cm subserosal fibroid. There is a 1.4 cm subserosal fibroid. There is a small nabothian cyst in the cervix. The right ovary measures 1. 5 x 2.2 x 1.8 cm. There is normal vascular flow in right ovary. The left ovary is not visualized. IMPRESSION: 1. Uterine fibroids. 2. Normal right ovary. Left ovary not visualized. Reviewed, dictated and finalized at location E. NTIST ENGINEER
--- NOTE | ~2023-05-11 | CT_ITS ---
EXAMINATION: CT abdomen pelvis w con DATE: 05/11/2023 22:57 INDICATION: Left lower quadrant abdominal pain. Epigastric abdominal pain. Nausea and vomiting. TECHNIQUE: Computed tomography (CT) of the abdomen and pelvis was performed with 100 mL Omnipaque 350 intravenous contrast. Automated exposure control and iterative reconstruction technique were employe d. The dose-length product was 679.09 mGy-cm. COMPARISON: CT abdomen and pelvis 08/26/22 FINDINGS: The visualized portions of the lung bases demonstrate mild atelectasis. No pleural effusion . The heart size is normal. No pericardial effusion. The liver and spleen are normal. There are liz es of cholecystectomy. The pancreas, adrenal glands, and kidneys are normal. There are fibroids in th e uterus measuring up to 3.1 cm. There are no dilated loops of bowel. The appendix is normal. There a re no pathologically enlarged lymph nodes. There is no free intraperitoneal fluid. There are changes of ventral hernia repair. There is mild thoracic and lumbar spondylosis. Thoracolumbar levoscoliosis is noted. IMPRESSION: 1. Uterine fibroids. Reviewed, dictated and finalized at location E. RD LIBRARIAN IMPRESSION: 1. Uterine fibroids.
[2023-05-11 22:15] LABS: Basophils Percent Auto 0.5 % (0.2-1.2); Eosinophils Absolute Auto 0.2 K/mm3 (0-0.3); Eosinophils Percent Auto 2.4 % (0-4.4); Hematocrit 39.8 % (37.0-47.0); Hemoglobin 12.9 g/dL (12.0-15.0); Immature Granulocyte Absolute 0.02 K/mm3 (0.00-0.031); Immature Granulocyte Percent A 0.3 % (0-0.5); Lymphocytes Absolute Auto 2.38 K/mm3 (0.9-3.2); Lymphocytes Percent Auto 31.9 % (18.3-44.2); Mean Corpuscular HGB Conc 32.4 g/dl (32-36); Mean Corpuscular Hemoglobin 29.3 pg (26-34); Mean Corpuscular Volume 90.5 fl (80-100); Mean Platelet Volume 11.3 fl (7.4-10.4); Monocytes Absolute Auto 0.4 K/mm3 (0.1-0.6); Monocytes Percent Auto 5.6 % (2.6-8.5); Neutrophils Absolute Auto 4.4 K/mm3 (1.3-6.7); Neutrophils Percent Auto 59.3 % (45.5-73.1); Platelet Count Result 279 k/mm3 (150-375); Red Cell Distribution Width 14.5 % (11.5-14.5); White Blood Count 7.5 K/mm3 (4.5-10.0)
[2023-05-11 22:16] LABS: Appearance Urine Clear (Clear); Bilirubin Urine Negative (Negative); Blood Urine Negative (Negative); Color Urine Yellow (Yellow); Glucose Urine UA Negative (Negative); Ketones Urine Negative (Negative); Leukocyte Esterase Ur Negative LEU/UL (Negative); Nitrate Urine Negative (Negative); Protein Urine Negative (Negative); Specific Grav Ur 1.011 (1.001-1.035); pH Urine 7.5 (5.0-9.0)
[2023-05-11 22:18] LABS: Add Urine Microscopic? NO
[2023-05-11 22:27] LABS: Alanine Aminotransferase 14 U/L (6-35); Albumin Level 4.3 g/dL (3.5-5.1); Alkaline Phosphatase 89 U/L (38-126); Anion Gap 4 mmol/L (8-16); Aspartate Amino Transferase 18 U/L (14-36); Bilirubin,Total 0.3 mg/dL (0.2-1.3); Blood Urea Nitrogen 8 mg/dL (7-17); Calcium 9.1 mg/dL (8.4-10.2); Carbon Dioxide 31 mmol/L (22-30); Chloride 104 mmol/L (98-107); Estimated CRCL calculation 82 ml/min; Estimated Glomerular Filt Rate > 60; Glucose 100 mg/dL (65-110); Lipase 298 U/L (23-300); Potassium 3.4 mmol/L (3.4-5.0); Sodium 139 mmol/L (137-145)
[2023-05-11] MEDS: ONDANSETRON INJ 4 MG/2 ML VIAL IV PUSH (23:02)
[2023-05-11] MEDS: MORPHINE SULFATE (*CRX) 4 MG/ML INJ IV PUSH (23:02)
[2023-05-11] MEDS: SODIUM CHLORIDE 0.9% IV 1,000 ML 999 ML IV CONT (23:02)
--- NOTE | 2023-05-11 23:38 | ED.NAVMDI ---
HPI - Nausea/Vomiting/Diarrhea General Chief complaint: Nausea/Vomiting/Diarrhea Stated complaint: N/V Time Seen by Provider: 05/11/23 21:45 Source: patient Mode of arrival: ambulatory Limitations: no limitations History of Present Illness HPI Narrative: Patient is a 42-year-old female who presents to the ED with report of nausea, vomiting, abdominal pain. Patient reports having persistent nausea and vomiting over the last 2 days. States she has been unable to keep down any food or drink. She also complains pain throughout her lower abdomen, which became localized to her left lower quadrant today. Has not taken anything for her symptoms. Reports mild diarrhea, stating she has had pellet-like bowel movements. Last bowel movement this morning. Also reports mild sore throat, tinnitus. Denies fevers, dysuria, hematuria, diarrhea, rectal bleeding, melena, cough or cold symptoms, congestion. Related Data Allergies Allergy/AdvReac Type Severity Reaction Status Date / Time clindamycin Allergy Unknown Unknown Verified 05/11/23 21:56 Sulfa (Sulfonamide Allergy Unknown Unknown Verified 05/11/23 21:56 Antibiotics) Review of Systems Review of Systems: CONSTITUTIONAL: Denies fever, chills, or sweats. ENT: See HPI. CARDIOVASCULAR: Denies chest pain. RESPIRATORY: Denies cough or dyspnea. GASTROINTESTINAL: See HPI. GENITOURINARY: Denies dysuria or hematuria. NEUROLOGIC: Denies headache, dizziness, numbness, or weakness. All systems reviewed & are unremarkable except as noted in HPI and below PMFSH Past Medical History Medical History Patient denies significant medical history Surgical History Surgical History History of cholecystectomy Family History Family History Mother Hypertension Family history of type 2 diabetes mellitus Father Patient's father is in good health Other Asthma Family history of thyroid disease Social History Social History Smoking status: Never smoker Second hand tobacco smoke exposure: No Alcohol intake: never Exam Narrative: GENERAL: Well appearing, obese with BMI of 34.5, non-toxic, in no acute distress. HEAD: Normocephalic, atraumatic. ENT: TMs clear bilaterally. No evidence of AOE/AOM, no cerumen impaction. RESPIRATORY: Airway patent, respirations nonlabored. Clear to auscultation bilaterally, no rales, rhonchi, wheezing. CARDIOVASCULAR: Regular rate and rhythm without murmurs, rubs, or gallops. ABDOMINAL: Soft, TTP in LLQ and suprapubic region, nondistended. Normoactive BS. MUSCULOSKELETAL: Moves all extremities. No gross deformities. SKIN: Warm, dry, normal color. NEURO: A&O X3. Speech clear. Cranial nerves II-XII grossly intact. Steady gait. No ataxic movements. PSYCHIATRIC: Appropriate mood and affect. Normal interaction. Course Vital Signs Vital signs: Vital Signs Temperature 97.9 F 05/11/23 16:49 Pulse Rate 63 05/11/23 16:49 Respiratory Rate 16 05/11/23 16:49 Blood Pressure 122/77 05/11/23 16:49 Pulse Oximetry 98 05/11/23 16:49 Oxygen Delivery Room Air 05/11/23 16:49 Temperature 97.9 F 05/11/23 23:06 Pulse Rate 68 05/12/23 02:55 Respiratory Rate 19 05/12/23 02:55 Blood Pressure 121/79 05/12/23 02:16 Pulse Oximetry 100 05/12/23 02:55 Oxygen Delivery Room Air 05/11/23 16:49 MDM - Nausea/Vomiting/Diarrhea MDM Narrative Medical decision making narrative: Patient presented to ED with nausea, vomiting, lower abdominal pain. Vital signs stable upon arrival. Afebrile. Patient in no acute distress. Laboratory studies fairly unremarkable. No leukocytosis or anemia. Stable electrolytes and kidney function, normal LFTs and lipase. Urinalysis without evidence of dehydratio
[2023-05-11 23:48] LABS: Influenza A QL RT-PCR Negative (Negative); Influenza B QL RT-PCR Negative (Negative); RSV RNA, RT-PCR Negative (Negative); SARS-CoV-2 RNA PCR Negative (Negative)
[2023-05-12] VITALS (18 sets, daily range): BP systolic 119–149; BP diastolic 67–137; PULSE 56–78; RESP 14–24; O2SAT 100
[2023-05-12] MEDS: diphenhydrAMINE HCl INJ 50 MG/ML VIAL 25 MG IV PUSH (01:04)
[2023-05-12] MEDS: SODIUM CHLORIDE 0.9% IV 1,000 ML 999 ML IV CONT (01:04)
[2023-05-12] MEDS: METOCLOPRAMIDE HCL INJ 10 MG/2 ML VIAL IV PUSH (01:05)
== END 2023-05-12 03:43 | disposition home or self-care (01) ==
PROVIDERS: Emergency Provider Physician Assistant; PCP Physician Assistant
DX: R11.2 Nausea with vomiting, unspecified (principal); R10.30 Lower abdominal pain, unspecified; Z20.822 Contact with and (suspected) exposure to COVID-19; Z90.49 Acquired absence of other specified parts of digestive tract; D25.9 Leiomyoma of uterus, unspecified
CPT/HCPCS: 36415; 74177; 76830; 76856; 80053; 81003; 81025; 83690; 85025; 87637; 96361; 96374; 96375; 99284; J1200; J2270; J2405; J2765; J7030; Q9967

== ENCOUNTER 2024-01-15 16:48 | Emergency (ER) | payer OTHER, SELFPAY ==
--- NOTE | ~2024-01-15 | XR_ITS ---
XR chest 1V portable DATE: 01/15/2024 17:59 INDICATION: Cough TECHNIQUE: Portable AP chest on 01/15/2024 1759 hours COMPARISON: None FINDINGS: Normal heart size. No hilar or mediastinal enlargement. No pulmonary infiltrate or consolid ation, pleural effusion or pulmonary vascular congestion or pneumothorax. Moderate thoracic dextroscoliosis. IMPRESSION: No active cardiopulmonary disease Reviewed, dictated and finalized at location A.
[2024-01-15 16:55] VITALS: BP 126/95; PULSE 93; RESP 18; TEMP 36.8; O2SAT 97
--- NOTE | 2024-01-15 17:03 | ED.GENADULT ---
HPI - General Adult General Chief complaint: Nausea/Vomiting/Diarrhea Stated complaint: n/v Time Seen by Provider: 01/15/24 16:54 History of Present Illness HPI narrative: Patient is a 43-year-old female who presents emergency department with chief complaint of cough vomiting. Patient reports that she started having chills body aches the assistance of discomfort in her ears multiple episodes of coughing and vomiting the patient reports been unable to keep fluids down denies diarrhea denies abdominal pain Related Data Allergies Allergy/AdvReac Type Severity Reaction Status Date / Time clindamycin Allergy Unknown Unknown Verified 01/15/24 16:59 Sulfa (Sulfonamide Allergy Unknown Unknown Verified 01/15/24 16:59 Antibiotics) Review of Systems Review of Systems: A 10 system review of systems was completed on the patient and is negative except for what is stated in the HPI. Nursing and ancillary documentation was reviewed. PMFSH Past Medical History Medical History Patient denies significant medical history Surgical History Surgical History History of cholecystectomy Family History Family History Mother Hypertension Family history of type 2 diabetes mellitus Father Patient's father is in good health Other Asthma Family history of thyroid disease Social History Social History Smoking status: Never smoker Second hand tobacco smoke exposure: No Alcohol intake: never Exam Narrative: GENERAL: Well-appearing, well-nourished, and in no acute distress. HEAD: Normocephalic, atraumatic. EYES: PERRLA and EOMI. ENT: Nares clear, no rhinorrhea or epistaxis. Mucous membranes moist. NECK: Supple. CHEST: Clear to auscultation. No respiratory distress. HEART: Regular rate and rhythm. No murmur heard. Normal peripheral pulses. ABDOMEN: Soft, nontender, nondistended, normal active bowel sounds. EXTREMITIES: Normal range of motion. No edema. SKIN: Warm, dry, no rash. NEURO: No focal deficits. Alert and oriented x3. PSYCH: Normal mood and affect. Course Vital Signs Vital signs: Vital Signs Temperature 36.8 C 10/26/24 16:55 Pulse Rate 93 01/15/24 16:55 Respiratory Rate 18 01/15/24 16:55 Blood Pressure 126/95 H 01/15/24 16:55 Pulse Oximetry 97 01/15/24 16:55 Oxygen Delivery Room Air 01/15/24 16:55 Temperature 36.8 C 01/15/24 16:55 Pulse Rate 64 01/15/24 17:40 Respiratory Rate 18 01/15/24 17:40 Blood Pressure 109/61 01/15/24 17:40 Pulse Oximetry 100 01/15/24 17:40 Oxygen Delivery Room Air 01/15/24 16:55 Medical Decision Making MDM Narrative Medical decision making narrative: Differential diagnosis includes viral illness, gastroenteritis, dehydration, Vital Signs Vital Signs: Vital Signs Temperature 36.8 C 01/15/24 16:55 Pulse Rate 93 01/15/24 16:55 Respiratory Rate 18 01/15/24 16:55 Blood Pressure 126/95 H 01/15/24 16:55 Pulse Oximetry 97 01/15/24 16:55 Oxygen Delivery Room Air 01/15/24 16:55 Temperature 36.8 C 01/15/24 16:55 Pulse Rate 64 01/15/24 17:40 Respiratory Rate 18 01/15/24 17:40 Blood Pressure 109/61 01/15/24 17:40 Pulse Oximetry 100 01/15/24 17:40 Oxygen Delivery Room Air 01/15/24 16:55 Lab Data 01/15/24 17:26 01/15/24 17:26 Labs: Lab Results 01/15/24 01/15/24 Range/Units 17:26 18:31 WBC 6.6 (4.5-10.0) K/mm3 RBC 4.46 (4.2-5.4) M/mm3 Hgb 13.4 (12.0-15.0) g/dL Hct 39.6 (37.0-47.0) % MCV 88.8 (80-100) fl MCH 30.0 (26-34) pg MCHC 33.8 (32-36) g/dl RDW 13.8 (11.5-14.5) % Plt Count 289 (150-375) k/mm3 MPV 11.3 H (7.4-10.4) fl Immature Gran % (Auto) 0.3 (0-0.5) % Neut % (Auto) 71.1 (45.5-73.1) % Lymph % (Auto) 22.4 (18.3-44.2) % [place] % (Auto) 4.6 (2.6-8.5) % Eos % (Auto) 1.1 (0-4.4) % Baso % (Auto) 0.5 (0.2-1.2) % Lymph # (Auto) 1.47 (0.9-3.2) K/mm3 [place] # (Auto) 0.3 (0.1-0.6) K/mm3 Eos # (Auto) 0.1 (0-0.3) K/mm3 Baso # (Auto) 0.0 (0.0-0.1) K/mm3 Abs Immat Gran (auto) 0.02 (0.00-0.031) K/mm3 Absolute Neuts (auto) 4.7 (1.3-6.7) K/mm3 Absolute Nucleated RBC 0.000 (0.0-0.012) K/mm3 Nucleated RBC % 0.0 (0.0-0.2) % Sodium 139 (137-145) mmol/L Potassium 3.3 L (3.4-5.0) mmol/L Chloride 103 (98-107) mmol/L Carbon Dioxide 27 (22-30) mmol/L Anion Gap 9 (4-12) mmol/L BUN 10 (7-17) mg/dL Creatinine 0.80 (0.7-1.0) mg/dL Estim Creat Clear Calc 74 ml/min Estimated GFR > 60 (59 - ) Glucose 123 H (65-110) mg/dL Calcium 8.9 (8.4-10.2) mg/dL Total Bilirubin 0.6 (0.2-1.3) mg/dL AST 20 (14-36) U/L ALT 19 (6-35) U/L Alkaline Phosphatase 94 (38-126) U/L Total Protein 8.0 (6.3-8.2) g/dL Albumin 4.3 (3.5-5.1) g/dL Lipase 35 (23-300) U/L Urine Color Dark yellow (Yellow) Urine Appearance Turbid H (Clear) Urine pH 6.0 (5.0-9.0) Ur Specific [place] 1.030 (1.001-1.035) Urine Protein 1+ H (Negative) mg/dL Urine Glucose (UA) Negative (Negative) mg/dL Urine Ketones 1+ H (Negative) mg/dL Ur Blood (Man) Negative (Negative) Urine Nitrate Negative (Negative) Urine Bilirubin Negative (Negative) Urine Urobilinogen 1.0 (<2.0) mg/dL Add Ur Microanalysis Reviewed Leukocyte Esterase Rfl Negative (Negative) MARIA ANTONIA/UL Urine RBC 21-50 H (0-2) /hpf Urine WBC 0-5 (0-3) /hpf Ur Squamous Epith Cells Moderate (Few) /hpf Calcium Oxalate Crystal Present (None) /hpf Urine Bacteria 1+ H /hpf Urine Casts 3-5 Urine Mucus Present /lpf POC Urine HCG, Qual Negative (Negative) Influenza A (RT-PCR) Negative (Negative) Influenza B (RT-PCR) Negative (Negative) RSV (RT-PCR) Negative (Negative) SARS-CoV-2 RNA (RT-PCR) Negative (Negative) Discharge Plan Discharge Clinical Impression: Nausea and vomiting, Viral illness Patient Disposition: Home, Self-Care Condition: Stable Instructions: Antibiotic Form, Acute Nausea and Vomiting (ED), Abdominal Pain (ED) Prescriptions: New ondansetron 4 mg tablet,disintegrating 4 mg PO Q8H PRN (Reason: nausea and vomiting) Qty: 20 0RF benzonatate 200 mg capsule 200 mg PO TID PRN (Reason: cough) Qty: 21 0RF No Action ondansetron HCl [Zofran] 4 mg tablet 4 mg PO Q6H PRN (Reason: nausea and vomiting) Qty: 10 0RF dicyclomine 20 mg tablet 20 mg PO QID Qty: 20 0RF dicyclomine 20 mg tablet 20 mg PO TID PRN (Reason: Abdominal Discomfort) Qty: 10 0RF ondansetron 4 mg tablet,disintegrating 4 mg PO Q8H PRN (Reason: nausea and vomiting) Qty: 12 0RF cyclobenzaprine 10 mg tablet 10 mg PO TID PRN (Reason: muscle spasm) Qty: 21 0RF ibuprofen 800 mg tablet 800 mg PO TID PRN (Reason: pain) Qty: 30 0RF metoclopramide HCl [Reglan] 10 mg tablet 10 mg PO Q6H PRN (Reason: nausea and vomiting) Qty: 10 0RF diclofenac potassium 50 mg tablet 50 mg PO TID PRN (Reason: pain) Qty: 30 0RF ondansetron 4 mg tablet,disintegrating 4 mg PO Q8H PRN (Reason: nausea and vomiting) Qty: 15 0RF Follow-up/Referrals: Satnam,DAVID Epps [Primary Care Provider] - Time of Disposition: 19:36
[2024-01-15] MEDS: ONDANSETRON INJ 4 MG/2 ML VIAL IV PUSH (17:36)
[2024-01-15] MEDS: SODIUM CHLORIDE 0.9% IV 1,000 ML 999 ML IV CONT (17:37)
[2024-01-15 17:40] VITALS: BP 109/61; PULSE 64; RESP 18; O2SAT 100
[2024-01-15 17:47] LABS: Basophils Percent Auto 0.5 % (0.2-1.2); Eosinophils Absolute Auto 0.1 K/mm3 (0-0.3); Eosinophils Percent Auto 1.1 % (0-4.4); Hematocrit 39.6 % (37.0-47.0); Hemoglobin 13.4 g/dL (12.0-15.0); Immature Granulocyte Absolute 0.02 K/mm3 (0.00-0.031); Immature Granulocyte Percent A 0.3 % (0-0.5); Lymphocytes Absolute Auto 1.47 K/mm3 (0.9-3.2); Lymphocytes Percent Auto 22.4 % (18.3-44.2); Mean Corpuscular HGB Conc 33.8 g/dl (32-36); Mean Corpuscular Volume 88.8 fl (80-100); Mean Platelet Volume 11.3 fl (7.4-10.4); Monocytes Absolute Auto 0.3 K/mm3 (0.1-0.6); Monocytes Percent Auto 4.6 % (2.6-8.5); Neutrophils Absolute Auto 4.7 K/mm3 (1.3-6.7); Neutrophils Percent Auto 71.1 % (45.5-73.1); Platelet Count Result 289 k/mm3 (150-375); Red Blood Count 4.46 M/mm3 (4.2-5.4); Red Cell Distribution Width 13.8 % (11.5-14.5); White Blood Count 6.6 K/mm3 (4.5-10.0)
[2024-01-15 18:01] LABS: Alanine Aminotransferase 19 U/L (6-35); Albumin Level 4.3 g/dL (3.5-5.1); Alkaline Phosphatase 94 U/L (38-126); Anion Gap 9 mmol/L (4-12); Aspartate Amino Transferase 20 U/L (14-36); Bilirubin,Total 0.6 mg/dL (0.2-1.3); Blood Urea Nitrogen 10 mg/dL (7-17); Calcium 8.9 mg/dL (8.4-10.2); Carbon Dioxide 27 mmol/L (22-30); Chloride 103 mmol/L (98-107); Estimated CRCL calculation 74 ml/min; Estimated Glomerular Filt Rate > 60; Glucose 123 mg/dL (65-110); Lipase 35 U/L (23-300); Potassium 3.3 mmol/L (3.4-5.0); Sodium 139 mmol/L (137-145)
[2024-01-15 18:24] LABS: Add Urine Microscopic? YES; Appearance Urine Turbid (Clear); Bacteria Urine 1+ /hpf; Bilirubin Urine Negative (Negative); Blood Urine Negative (Negative); Calcium Oxalate Crystals Urine Present /hpf; Color Urine Dark Yellow (Yellow); Glucose Urine UA Negative (Negative); Influenza A QL RT-PCR Negative (Negative); Influenza B QL RT-PCR Negative (Negative); Ketones Urine 1+ mg/dL (Negative); Leukocyte Esterase Ur Negative LEU/UL (Negative); Mucus Urine Present /lpf; Need Manual Microscopic Reviewed; Nitrate Urine Negative (Negative); Protein Urine 1+ mg/dL (Negative); RBC Urine 21-50 /hpf (0-2); RSV RNA, RT-PCR Negative (Negative); SARS-CoV-2 RNA PCR Negative (Negative); Squamous Epithelial Cell Urine Moderate /hpf (Few); WBC Urine 0-5 /hpf (0-3)
[2024-01-15 18:33] LABS: BEDSIDEPREGUCG Negative (Negative)
[2024-01-15] MEDS: PROCHLORPERAZINE EDISYLATE 10 MG/2 ML VIAL IV PUSH (19:26)
[2024-01-15] MEDS: diphenhydrAMINE HCl INJ 50 MG/ML VIAL 25 MG IV PUSH (19:26)
[2024-01-15 19:56] VITALS: BP 124/86; PULSE 68; RESP 14; O2SAT 99
== END 2024-01-15 19:57 | disposition home or self-care (01) ==
PROVIDERS: Emergency Provider Emergency Medicine; PCP Physician Assistant
DX: R11.2 Nausea with vomiting, unspecified (principal); B34.9 Viral infection, unspecified; Z20.822 Contact with and (suspected) exposure to COVID-19
CPT/HCPCS: 36415; 71045; 80053; 81001; 81025; 83690; 85025; 87637; 96361; 96374; 96375; 99284; J0780; J1200; J2405; J7030

== ENCOUNTER 2024-03-24 18:13 | Emergency (ER) | payer OTHER, SELFPAY ==
--- NOTE | ~2024-03-24 | XR_ITS ---
XR chest 1V portable DATE: 03/25/2024 04:28 INDICATION: Cough TECHNIQUE: Portable upright AP chest on 03/25/2024 at 0426 hours COMPARISON: 01/15/2024 portable AP chest at 1759 hours FINDINGS: Normal heart size. No hilar or mediastinal enlargement. No pulmonary infiltrate or consolid ation, pleural effusion or pulmonary vascular congestion or pneumothorax is detected. IMPRESSION: No active cardiopulmonary disease Reviewed, dictated and finalized at location A. CLERK
[2024-03-24 18:16] VITALS: BP 130/81; PULSE 100; RESP 20; TEMP 37.2; O2SAT 98
[2024-03-25] VITALS (7 sets, daily range): BP systolic 129–132; BP diastolic 80–89; PULSE 90–96; RESP 18–20; TEMP 36.9; O2SAT 97–100
[2024-03-25 04:10] LABS: BEDSIDEPREGUCG Negative (Negative)
[2024-03-25] MEDS: BENZONATATE 100 MG CAPSULE 200 MG PO (04:26)
[2024-03-25] MEDS: ONDANSETRON HCL ODT 4 MG TABLET PO (04:26)
[2024-03-25 04:53] LABS: Strep Group A RT-PCR NOT DETECTED (Negative)
[2024-03-25] MEDS: IPRATROPIUM 0.5 MG/ALBUTEROL SULFATE 2.5 MG AMPUL.NEB 3 ML INHALATION (04:58)
[2024-03-25 05:05] LABS: Influenza A QL RT-PCR Negative (Negative); Influenza B QL RT-PCR Negative (Negative); RSV RNA, RT-PCR Positive (Negative); SARS-CoV-2 RNA PCR Negative (Negative)
--- NOTE | 2024-03-25 05:18 | ED.GENADULT ---
HPI - General Adult General Chief complaint: Upper Respiratory Infection Stated complaint: N/V x3 days Time Seen by Provider: 03/25/24 03:56 History of Present Illness HPI narrative: 33-year-old female who presents emergency department with chief complaint of cough and nausea vomiting. The patient reports that she has had pain in her ears reports she has pain in her throat the patient reports that the symptoms are not improved by anything Related Data Allergies Allergy/AdvReac Type Severity Reaction Status Date / Time clindamycin Allergy Unknown Unknown Verified 03/25/24 02:57 Sulfa (Sulfonamide Allergy Unknown Unknown Verified 03/25/24 02:57 Antibiotics) Review of Systems Review of Systems: A 10 system review of systems was completed on the patient and is negative except for what is stated in the HPI. Nursing and ancillary documentation was reviewed. PMFSH Past Medical History Medical History Patient denies significant medical history Surgical History Surgical History History of cholecystectomy Family History Family History Mother Hypertension Family history of type 2 diabetes mellitus Father Patient's father is in good health Other Asthma Family history of thyroid disease Social History Social History Smoking status: Never smoker Second hand tobacco smoke exposure: No Alcohol intake: never Exam Narrative: GENERAL: Well-appearing, well-nourished, and in no acute distress. HEAD: Normocephalic, atraumatic. EYES: PERRLA and EOMI. ENT: Nares clear, no rhinorrhea or epistaxis. Mucous membranes moist. NECK: Supple. CHEST: Clear to auscultation. No respiratory distress. HEART: Regular rate and rhythm. No murmur heard. Normal peripheral pulses. ABDOMEN: Soft, nontender, nondistended, normal active bowel sounds. EXTREMITIES: Normal range of motion. No edema. SKIN: Warm, dry, no rash. NEURO: No focal deficits. Alert and oriented x3. PSYCH: Normal mood and affect. Course Vital Signs Vital signs: Vital Signs Temperature 37.2 C 03/24/24 18:16 Pulse Rate 100 03/24/24 18:16 Respiratory Rate 20 03/24/24 18:16 Blood Pressure 130/81 03/24/24 18:16 Pulse Oximetry 98 03/24/24 18:16 Temperature 36.9 C 03/25/24 00:24 Pulse Rate 95 03/25/24 05:10 Respiratory Rate 20 03/25/24 05:10 Blood Pressure 132/84 03/25/24 03:23 Pulse Oximetry 99 03/25/24 03:23 Oxygen Delivery Room Air 03/25/24 02:54 Medical Decision Making MDM Narrative Medical decision making narrative: Differential diagnosis includes strep, COVID, flu, RSV, pneumonia Chest x-ray showed no evidence of infiltrate. COVID flu were negative, RSV was positive strep was negative The patient will be started on steroids and also be given a prescription for Tessalon Perles and also Zofran and also prescription for prednisone Vital Signs Vital Signs: Vital Signs Temperature 37.2 C 03/24/24 18:16 Pulse Rate 100 03/24/24 18:16 Respiratory Rate 20 03/24/24 18:16 Blood Pressure 130/81 03/24/24 18:16 Pulse Oximetry 98 03/24/24 18:16 Temperature 36.9 C 03/25/24 00:24 Pulse Rate 95 03/25/24 05:10 Respiratory Rate 20 03/25/24 05:10 Blood Pressure 132/84 03/25/24 03:23 Pulse Oximetry 99 03/25/24 03:23 Oxygen Delivery Room Air 03/25/24 02:54 Lab Data Labs: Lab Results 03/25/24 03/25/24 Range/Units 04:08 04:25 POC Urine HCG, Qual Negative (Negative) Influenza A (RT-PCR) Negative (Negative) Influenza B (RT-PCR) Negative (Negative) RSV (RT-PCR) Positive A (Negative) SARS-CoV-2 RNA (RT-PCR) Negative (Negative) Group A Strep (PCR) Not detected (Negative) Discharge Plan Discharge Clinical Impression: Upper respiratory infection, Respiratory syncytial virus (RSV) infection Patient Disposition: Home, Self-Care Condition: Stable Instructions: Antibiotic Form, Upper Respiratory Infection (ED), RSV (Respiratory Syncytial Virus) Infection (ED) Patient Language: Persian Prescriptions: New prednisone 20 mg tablet 40 mg PO DAILY 5 Days Qty: 10 0RF ondansetron 4 mg tablet,disintegrating 4 mg PO Q8H PRN (Reason: nausea and vomiting) Qty: 10 0RF benzonatate 200 mg capsule 200 mg PO TID PRN (Reason: cough) Qty: 21 0RF No Action ondansetron HCl [Zofran] 4 mg tablet 4 mg PO Q6H PRN (Reason: nausea and vomiting) Qty: 10 0RF dicyclomine 20 mg tablet 20 mg PO QID Qty: 20 0RF dicyclomine 20 mg tablet 20 mg PO TID PRN (Reason: Abdominal Discomfort) Qty: 10 0RF ondansetron 4 mg tablet,disintegrating 4 mg PO Q8H PRN (Reason: nausea and vomiting) Qty: 12 0RF ondansetron 4 mg tablet,disintegrating 4 mg PO Q8H PRN (Reason: nausea and vomiting) Qty: 20 0RF benzonatate 200 mg capsule 200 mg PO TID PRN (Reason: cough) Qty: 21 0RF cyclobenzaprine 10 mg tablet 10 mg PO TID PRN (Reason: muscle spasm) Qty: 21 0RF ibuprofen 800 mg tablet 800 mg PO TID PRN (Reason: pain) Qty: 30 0RF metoclopramide HCl [Reglan] 10 mg tablet 10 mg PO Q6H PRN (Reason: nausea and vomiting) Qty: 10 0RF diclofenac potassium 50 mg tablet 50 mg PO TID PRN (Reason: pain) Qty: 30 0RF ondansetron 4 mg tablet,disintegrating 4 mg PO Q8H PRN (Reason: nausea and vomiting) Qty: 15 0RF Follow-up/Referrals: Satnam,DAVID Epps [Primary Care Provider] -
--- OUTSIDE RECORDS SUMMARY | 2024-04-01 05:49 | XMS_ITS | Encounter Summary ---
Author Organization [facility] Address [address] [place] [address]. [place], [place] [id number] [place] [id number] Care Team Providers Care Medicaid Collection Specialist Name Role Phone Supriya Hay Primary Care Provider [phone] Encounter Details Date Type Department Care Team (Latest Contact Info) Description 12/01/2021 Travel Social History Tobacco Use Types Packs/Day Years Used Date Smoking Tobacco: Never Smokeless Tobacco: Never Alcohol Use Standard Drinks/Week Comments Never 0 (1 standard drink = 0.6 oz pur e alcohol) Comments No Sex and Gender Information Value Date Recorded Sex Assigned at Not on file Legal Sex Female 7:11 PM CDT Gender Identity Not on file Sexual Orientation Not on file COVID-19 Exposure Response Date Recorded In the last 10 days, have yo u been in contact with someone who was confirmed or suspected to have Coronavirus/COVID-19? No / Unsure 12/01/2021 4:56 PM CDT documented as of this encounter Plan of Treatment Not on file documented as of this encounter Visit Diagnoses Not on filedocumented in this encounter Care Teams Medicaid Collection Specialist Relationship Specialty Start Date End Date Supriya Hay PA [id number] [place] [address] PCP - General PHYSICIAN WELLNESS EDUCATOR 02/25/21 documented as of this encounter
--- OUTSIDE RECORDS SUMMARY | 2024-04-01 05:49 | XMS_ITS | Encounter Summary ---
Author Organization [facility] Address [address] [place] [address]. [place] [address] [place] [address] Care Team Providers Care Guest Experience Representative Name Role Phone Supriya Hay Primary Care Provider [phone] Reason for Visit * Auth/Cert Specialty Diagnoses / Procedures Referred By Melissa swanson Referred To Contact Diagnoses chronic constipation Procedures COLONOSCOPY Referral ID Status Reason Start Date Expiration Date Visits Re quested Visits Authorized [id number] 1 1 Encounter Details Date Type Department Care Team (Latest Contact Info) Description 04/15/2021 11:02 AM SUPPLY CHAIN PROCUREMENT MANAGER - 04/15/2021 1:32 PM [facility] Hospital Encounter [facility] [place] [address] Dylan Naidu T, DO #3 [facility] [address] [place] [address] Discharge Disposition: Home or Self Care (Routine Discharge) Social History Tobacco Use Types Packs/Day Years [...] Exposure Response Date Recorded In the last month, have you been in contact with someone who was confirmed or suspected to have Coronavirus / COVID-19? Yes 04/15/2021 11:28 AM SUPPLY CHAIN PROCUREMENT MANAGER documented as of this encounter Last Filed Vital Signs Vital Sign Reading Time Taken Comments Blood Pressure 107/77 04/15/2021 1:05 PM SUPPLY CHAIN PROCUREMENT MANAGER Pulse 68 04/15/2021 1:05 PM SUPPLY CHAIN PROCUREMENT MANAGER Temperature 36.7 ??C (98 ??F) 04/15/2021 12:43 PM SUPPLY CHAIN PROCUREMENT MANAGER Respiratory Rate 15 04/15/2021 1:05 PM SUPPLY CHAIN PROCUREMENT MANAGER Oxygen Saturation 100% 04/15/2021 1:05 PM SUPPLY CHAIN PROCUREMENT MANAGER Inhaled Oxygen Concentration - - Weight 83 kg (183 lb) 04/07/2021 3:03 PM SUPPLY CHAIN PROCUREMENT MANAGER Height 157.5 cm (5' 2 ) 04/07/2021 3:03 PM SUPPLY CHAIN PROCUREMENT MANAGER Body Mass Index 33.47 04/07/2021 3:03 PM SUPPLY CHAIN PROCUREMENT MANAGER documented in this encounter Discharge Instructions * Discharge Instructions* Supriya Pratt RN - 04/15/2021 12:58 PM SUPPLY CHAIN PROCUREMENT MANAGER Recommendations: ?? Fiber. MiraLAX twice daily. Follow-up with primary as needed. Follow-up with nurse practitioner in the office in 4 to 6 weeks. Recheck colonoscopy 10 years. Consider further treatment for chronic idiopathic constipation and IBS with constipation. These include, but are not limited to, Motegrity, Trulance, Linzess, or Amitiza LY CHAIN PROCUREMENT MANAGER * Attachments The following attachments cannot be sent through Care Everywhere. * Colonoscopy Discharge Instructions ([place]ovan) * General Anesthesia Discharge Instructions (K[place]ovan) documented in this encounter Medications at Time of Discharge cyclobenzaprine 10 MG tablet Take 10 mg by mouth 3 (three) times daily as needed. 10/05/2020 dicyclomine 20 MG tablet Take 20 mg by mouth 4 (four) times daily. 06/20/2020 levonorgestrel 20 MCG/24HR IUD 1 each by Intrauterine route once. metoclopramide 10 MG tablet 10/23/2020 ondansetron 4 MG tablet TAKE 1 TABLET BY MOUTH EVERY 6 HOURS NEEDED FOR NAUSEA OR VOMITING 06/21/2020 documented as of this encounter H&P Notes * Dylan Naidu DO - 04/15/2021 10:41 AM CST This very pleasant patient was seen at the request of the primary physician and with the patient's permission. The patient was examined the chart was reviewed. Reason for encounter: Colonoscopy. Impression/problem: A very pleasant lady with chronic idiopathic constipation. She is here for colonoscopy. Recommendations: Colonoscopy. History: Very pleasant lady has a history of chronic constipation. Last colonoscopy revealed that she was full of stool. She is here for follow-up colonoscopy to evaluate for underlying inflammatory or neoplastic disease. Allergies: Allergies Allergen Reactions ??? Clindamycin Shortness of Breath ??? Sulfa Antibiotics Swelling Medications: No current facility-administered medications on file prior to encounter. Current Outpatient Medications on File Prior to Encounter Medication Sig ??? cyclobenzaprine 10 MG tablet Take 10 mg by mouth 3 (three) times daily as needed. ??? dicyclomine 20 MG tablet Take 20 mg by mouth 4 (four) times daily. ??? levonorgestrel 20 MCG/24HR IUD 1 each by Intrauterine route once. ??? metoclopramide 10 MG tablet ??? ondansetron 4 MG tablet TAKE 1 TABLET BY MOUTH EVERY 6 HOURS NEEDED FOR NAUSEA OR VOMITING PMH: Past Medical History: Diagnosis Date ??? Chronic idiopathic constipation PSH: Past Surgical History: Procedure Laterality Date ??? ADENOIDECTOMY ??? CHOLECYSTECTOMY ??? COLONOSCOPY N/A 02/25/2021 COLONOSCOPY performed by Dylan Naidu, DO at [facility] ??? HERNIA REPAIR ??? OTHER PROCEDURE uterine repair ??? TONSILLECTOMY [facility] Family History Problem Relation Name Age of Onset ??? Diabetes Mother ??? Cancer Father Social: Social History Socioeconomic History ??? Marital status: Single Spouse name: Not on file ??? Number of children: Not on file ??? Years of education: Not on file ??? Highest education level: Not on file Occupational History ??? Not on file Tobacco Use ??? Smoking status: Never Smoker ??? Smokeless tobacco: Never Used Substance and Sexual Activity ??? Alcohol use: Never ??? Drug use: Not Currently ??? Sexual activity: Not on file Other Topics Concern ??? Not on file Social History Narrative ??? Not on file Social Determinants of Health Financial Resource Strain: Not on file Food Insecurity: Not on file Transportation Needs: Not on file Physical Activity: Not on file Stress: Not on file Social Connections: Not on file Intimate Partner Violence: Not on file 14 point review of systems is unremarkable except for that mentioned above. Physical examination: General: The patient is alert and in no acute distress. HEENT: Head was normocephalic, sclerae clear, mouth without masses and neck was supple. Cardiac: Heart rate and rhythm were regular without S3 or S4. No carotid bruits. Lungs: CTA. Abdomen: Soft without pain. Bowel sounds active. No significant distention or tenderness. Neurologic: Nonfocal. Cranial nerves II through XII were intact. STEPHEN: No significant joint tenderness or swelling. No significant muscle atrophy. Extremities: No significant edema noted. Skin: Warm and dry without rashes. Mental status: Patient is alert and oriented. Patient is cooperative and appropriate. Rectal: Deferred. Thank you for allowing me to participate in the care of this most listening patient. If I can be ofany further service to you, please do not hesitate to contact me. Dylan Naidu DO LY CHAIN PROCUREMENT MANAGER documented in this encounter OR Notes * Op Note - Dylan Naidu DO - 04/15/2021 12:45 PM CST Colonoscopy History/Preop: Here we have a very pleasant lady with a history of chronic constipation. This is very compatible with chronic idiopathic constipation. She is here for colonoscopy after 2-day preparation. Negative terminal Post Op: Negative terminal ileum. Negative colonoscopy. Procedure Performed: Colonoscopy and ileoscopy. Findings: Colonoscopy the distal 5 cm of terminal ileum was completed. The visualized portion of the terminalileum was unremarkable. Examination of the colon was completed. The colon was unremarkable. The preparation was good. Recommendations: Fiber. MiraLAX twice daily. Follow-up with primary as needed. Follow-up with nurse practitioner in the office in 4 to 6 weeks. Recheck colonoscopy 10 years. Consider further treatment for chronic idiopathic constipation and IBS with constipation. These include, but are not limited to, Motegrity, Trulance, Linzess, or Amitiza. Anes: MAC Complications: No immediate. Quality Indicators: EBL: < 5ml. Prep: Excellent. Extent of insertion: Distal 5 cm terminal ileum. Procedure: The benefits, risks, complications and alternatives were explained in detail to the patient/power of disability services coordinator. These were understood, assumed and written consent was obtained. The risk and complications include, but are not limited to, hemorrhage, perforation, infection, blood transfusion surgery, and missed lesions. Anesthesia risks were explained by the department of anesthesiology. These include, but are not limited to, allergic reactions, cardiopulmonary arrest, heart attack, stoke, and infection. All question were answered and understood. The patient was placed in the left lateral decubitus position. Digital rectal/ostomy exam was performed and was unremarkable/or otherwise stated. Using the video colonoscopy, it was inserted into therectum and advanced under direct vision to the cecum/or otherwise stated. The cecum was identified by the characteristic anatomy, the appendiceal opening, and the ileal cecal valve. Photographic documentation was completed. On withdrawal of the colonoscope the mucosa was inspected in a systematic manner. The rectum was examined in the forward and retroflexed views. The patient tolerated the procedure well. Dylan Naidu DO LY CHAIN PROCUREMENT MANAGER documented in this encounter Plan of Treatment Not on file documented as of this encounter Procedures Procedure Name Priority Date/Time Associated Diagnosis Comments PROCEDURE GENERIC 04/15/2021 12: 57 PM SUPPLY CHAIN PROCUREMENT MANAGER COLONOSCOPY 04/15/2021 12:16 PM SUPPLY CHAIN PROCUREMENT MANAGER chronic constipation COLONOSCOPY Routine 04/15/2021 11:15 AM SUPPLY CHAIN PROCUREMENT MANAGER documented in this encounter Results * PROCEDURE GENERIC (04/15/2021 12:57 PM SUPPLY CHAIN PROCUREMENT MANAGER) Narrative 04/15/2021 12:57 PM SUPPLY CHAIN PROCUREMENT MANAGER Ordered by an unspecified provider. us Documents Scanned [facility] Edited Resul t - Final documented in this encounter Visit Diagnoses Not on filedocumented in this encounter Administered Medications Inactive Administered Medications - up to 3 most recent administrations Medication Order MAR Action Action Date Dose Rate Site lactated ringers infusion at 10 mL/hr, Intravenous, Continuous, Starting on Wed04/15/21 at 1200, Until Wed04/15/21 at 1535, Infuse at TKO rate, Pre-Op New Bag 04/15/2021 12:17 PM SUPPLY CHAIN PROCUREMENT MANAGER documented in this encounter Active and Recently Administered Medications Times are shown in SUPPLY CHAIN PROCUREMENT MANAGER. Continuous Medication Order 04/13/2021 04/14/2021 04/15/2021 lactated ringers infusion at 10 mL/hr, Intravenous, Continuous, Starting on Wed04/15/21 at 1200, Until Wed04/15/21 at 1535, Infuse at TKO rate, Pre-Op 1217 (New Bag - Prov ider: Mira Pastor CRNA)1242 (Infusion Stop Time - Provider: Mira Pastor CRNA) documented in this encounter Additional Health Concerns Infection Onset Date Last Indicated Resolved Time COVID-19 Confirmed 03/31/2021 03/31/2021 12:34 AM SUPPLY CHAIN PROCUREMENT MANAGER documented as of this encounter Care Teams Guest Experience Representative Relationship Specialty Start Date End Date Supriya Hay PA [address] [place] [address] PCP - General PHYSICIAN GLOVE OPERATOR 02/25/21 documented as of this encounter
--- OUTSIDE RECORDS SUMMARY | 2024-04-01 05:49 | XMS_ITS | Clinical Summary ---
Author Organization [facility] Address [address] [place] [address]. [place], [place] [id number] [place] [address] Care Team Providers Care Sugar House Supervisor Name Role Phone Supriya Hay Primary Care Provider [phone] Allergies Active Allergy Reactions Criticality Noted Date Comments Clindamycin Shortness of Breath High 12/18/2020 Sulfa Antibiotics Swelling 12/18/2020 Medications cyclobenzaprine 10 MG tablet Take 10 mg by mouth 3 (three) times daily as needed. 1 Active dicyclomine 20 MG tablet Take 20 mg by mouth 4 (four) times daily. 1 Active metoclopramide 10 MG tablet 1 Active ondansetron 4 MG tablet TAKE 1 TABLET BY MOUTH EVERY 6 HOURS NEEDED FOR NAUSEA OR VOMITING 1 Active levonorgestrel 20 MCG/24HR IUD 1 each by Intrauterine route once. 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 22 Immunizations Name Administration Dates Next Due MMR (MMRII) 05/21/1994 Td (TDVAX) 12/03/1995 Family History Medical History Relation Comments Cancer Father Diabetes Mother Relation Status Comments Father Alive Mother Alive Social History Tobacco Use Types Packs/Day Years Used Date Smoking Tobacco: Never Smokeless Tobacco: Never Alcohol Use Standard Drinks/Week Comments Never 0 (1 standard drink = 0.6 oz pur e alcohol) Comments No Sex and Gender Information Value Date Recorded Sex Assigned at Not on file Legal Sex Female 7:11 PM CDT Gender Identity Not on file Sexual Orientation Not on file Last Filed Vital Signs Vital Sign Reading Time Taken Comments Blood Pressure 128/76 12/01/2021 8:12 PM CDT Pulse 59 12/01/2021 8:12 PM CDT Temperature 36.2 ??C (97.2 ??F) 12/01/2021 5:02 PM CD T Respiratory Rate 18 12/01/2021 5:02 PM CDT Oxygen Saturation 100% 12/01/2021 8:12 PM CDT Inhaled Oxygen Concentration - - Weight 85.3 kg (188 lb) 12/01/2021 5:02 PM CDT Height 157.5 cm (5' 2 ) 12/01/2021 5:02 PM CDT Body Mass Index 34.39 12/01/2021 5:02 PM CDT Plan of Treatment Health Maintenance Due Date Last Done Comments Annual Physical 1984 DTaP, Tdap and Td Vaccines ( 2 - Tdap) 12/04/1995 12/03/1995 Hepatitis C 06/03/1999 Hepatitis B Vaccines (1 of 3 - 19+ 3-dose series) 2000 Cervical Cancer Screening Pa p Smear (Age 30 to 64) Every 3 Years 05/16/2019 05/16/2016 Cervical Cancer Screening Pa p with HPV Testing (Age 30 to 64) Every 5 Years 05/16/2021 05/16/2016 Cervical Cancer Screening with HPV 05/16/2021 Mammogram Screening 2021 COVID-19 Vaccine ( - 2023-2 5 season) 2023 Influenza Adult (#1) 2023 HPV Vaccines Aged Out No longer eligi ble based on patient's age to complete this topic Meningococcal Vaccine Aged Out No moriah chaim eligible based on patient's age to complete this topic Pneumococcal Vaccine: Pediat rics (0 to 5 Years) and At-Risk Patients (6 to 64 Years) Aged Out No longer eligi ble based on patient's age to complete this topic RSV Immunizations Under 20 Months Aged Out No longer eligible based on patient's age to complete this topic Insurance [facility] Care Teams Sugar House Supervisor Relationship Specialty Start Date End Date Supriya Hay PA [address] [place] [address] PCP - General PHYSICIAN COPY CLERK 02/25/21
--- OUTSIDE RECORDS SUMMARY | 2024-04-01 05:49 | XMS_ITS | Encounter Summary ---
Author Organization [facility] Address [address] [place] [address]. [place] [address] [place] [address] Care Team Providers Care Research Programmer Name Role Phone Supriya Hay Primary Care Provider [phone] Reason for Visit * Auth/Cert Specialty Diagnoses / Procedures Referred By Melissa swanson Referred To Contact Diagnoses chronic constipation Procedures COLONOSCOPY Referral ID Status Reason Start Date Expiration Date Visits Re quested Visits Authorized [id number] 1 1 Encounter Details Date Type Department Care Team (Late st Contact Info) Description 04/15/2021 12:00 PM FUNERAL PREARRANGEMENT COUNSELOR - 04/15/2021 12:30 PM FUNERAL PREARRANGEMENT COUNSELOR Surgery [facility] [place] [address] Dylan Naidu, DO #3 [facility] [address] [place] [address] COLONOSCOPY-Negative Surgery Details Date/Time Status Location OR Service Patient Class Case Class Case Type Trauma Case? 04/15/2021 12:00 PM Posted [facility] Endo 2 Gastroenterology Short Stay/Outp atient Surgery E - Elective No Panel 1 Procedure LRB Anes Op Region Wound Class Comments COLONOSCOPY-Negative N/A General Clean Con taminated Negative TI Surgeon Surgeon Role Service Panel Dylan Naidu, DO Primary Gastroenterology 1 documented in this encounter Social History Tobacco Use Types Packs/Day Years [...] Coronavirus / COVID-19? Yes 04/15/2021 11:28 AM FUNERAL PREARRANGEMENT COUNSELOR documented as of this encounter Last Filed Vital Signs Vital Sign Reading Time Taken Comments Blood Pressure 114/80 04/15/2021 11:48 AM FUNERAL PREARRANGEMENT COUNSELOR Pulse 86 04/15/2021 11:48 AM FUNERAL PREARRANGEMENT COUNSELOR Temperature 36.7 ??C (98.1 ??F) 04/15/2021 11:[address] Respiratory Rate 14 04/15/2021 11:48 AM FUNERAL PREARRANGEMENT COUNSELOR Oxygen Saturation 99% 04/15/2021 11:48 AM FUNERAL PREARRANGEMENT COUNSELOR Inhaled Oxygen Concentration - - Weight 83 kg (183 lb) 04/07/2021 3:03 PM FUNERAL PREARRANGEMENT COUNSELOR Height 157.5 cm (5' 2 ) 04/07/2021 3:03 PM FUNERAL PREARRANGEMENT COUNSELOR Body Mass Index 33.47 04/07/2021 3:03 PM FUNERAL PREARRANGEMENT COUNSELOR documented in this encounter Discharge Instructions * Discharge Instructions* Supriya Pratt RN - 04/15/2021 12:58 PM FUNERAL PREARRANGEMENT COUNSELOR Recommendations: ?? Fiber. MiraLAX twice daily. Follow-up with primary as needed. Follow-up with nurse practitioner in the office in 4 to 6 weeks. Recheck colonoscopy 10 years. Consider further treatment for chronic idiopathic constipation and IBS with constipation. These include, but are not limited to, Motegrity, Trulance, Linzess, or Amitiza RAL PREARRANGEMENT COUNSELOR * Attachments The following attachments cannot be sent through Care Everywhere. * Colonoscopy Discharge Instructions ([place]) * General Anesthesia Discharge Instructions ([place]) documented in this encounter Medications at Time [...] COLONOSCOPY N/A 02/25/2021 COLONOSCOPY performed by Dylan Naidu DO at [facility] ??? HERNIA REPAIR ??? OTHER PROCEDURE uterine repair ??? TONSILLECTOMY FM Family History Problem Relation Name Age of [...] hesitate to contact me. Dylan Naidu DO RAL PREARRANGEMENT COUNSELOR documented in this encounter OR Notes * [...] explained in detail to the patient/power of deputy commonwealth's attorney. These were understood, assumed and written consent [...] tolerated the procedure well. Dylan Naidu DO RAL PREARRANGEMENT COUNSELOR documented in this encounter Plan of Treatment Not on file documented as of this encounter Procedures Procedure Name Priority Date/Time Associated Diagnosis Comments PROCEDURE GENERIC 04/15/2021 12: 57 PM FUNERAL PREARRANGEMENT COUNSELOR COLONOSCOPY 04/15/2021 12:16 PM FUNERAL PREARRANGEMENT COUNSELOR chronic constipation COLONOSCOPY Routine 04/15/2021 11:15 AM FUNERAL PREARRANGEMENT COUNSELOR documented in this encounter Results * PROCEDURE GENERIC (04/15/2021 12:57 PM FUNERAL PREARRANGEMENT COUNSELOR) Narrative 04/15/2021 12:57 PM FUNERAL PREARRANGEMENT COUNSELOR Ordered by an unspecified provider. us Documents [...] rate, Pre-Op New Bag 04/15/2021 12:17 PM FUNERAL PREARRANGEMENT COUNSELOR documented in this encounter Active and Recently Administered Medications Times are shown in FUNERAL PREARRANGEMENT COUNSELOR. Continuous Medication Order 04/13/2021 04/14/2021 04/15/2021 lactated [...] Time COVID-19 Confirmed 03/31/2021 03/31/2021 12:34 AM FUNERAL PREARRANGEMENT COUNSELOR documented as of this encounter Care Teams Research Programmer Relationship Specialty Start Date End Date uSpriya Hay PA [address] [place] [address] PCP - General PHYSICIAN MARKETING RESEARCH INTERN 02/25/21 documented as of this encounter
--- OUTSIDE RECORDS SUMMARY | 2024-04-01 05:49 | XMS_ITS | Encounter Summary ---
Author Organization [facility] Address [address] [place] [address]. [place], [place] [address] [place] [address] Care Team Providers Care Heavy Equipment Operating Engineer Name Role Phone Supriya Hay Primary Care Provider [phone] Encounter Details Date Type Department Care Team (Latest Contact Info) Description 04/15/2021 Travel Social History Tobacco Use Types Packs/Day [...] Coronavirus / COVID-19? Yes 04/15/2021 11:28 AM CABLE SPOOLER documented as of this encounter Plan of Treatment Not on file documented as of this encounter Visit Diagnoses Not on filedocumented in this encounter Additional Health Concerns Infection Onset Date Last Indicated Resolved Time COVID-19 Confirmed 03/31/2021 03/31/2021 12:34 AM CABLE SPOOLER documented as of this encounter Care Teams Heavy Equipment Operating Engineer Relationship Specialty Start Date End Date Supriya Hay PA [address] [place] [address] PCP - General PHYSICIAN DIRECTOR CLINICAL INFORMATION SERVICES 02/25/21 documented as of this encounter
--- OUTSIDE RECORDS SUMMARY | 2024-04-01 05:49 | XMS_ITS | Encounter Summary ---
Author Organization [facility] Address [address] [place] [address]. [place] [address] [place] [address] Care Team Providers Care Assembler Unit Name Role Phone Supriya Hay Primary Care Provider Encounter Details Date Type Department Care Team (Late st Contact Info) Description 03/24/2021 Prep for Procedure [facility] [place] [address] Dylan Naidu, DO [address] [facility] [address] [place] [address] Social History Tobacco Use Types Packs/Day Years [...] or suspected to have Coronavirus / COVID-19? No / Unsure 02/24/2021 1:47 PM FURNITURE INSTALLER documented as of this encounter Plan of Treatment Not on file documented as of this encounter Results * (ABNORMAL) CORONAVIRUS (COVID 19) (03/31/2021 11:07 AM FURNITURE INSTALLER) SPEC DESCRIPTION NASAL 03/31/19 11:07 AM FURNITURE INSTALLER [facility] CORONAVIRUS SARS COV 2 PCR (RESP) POSITIVE(A A) NEGATIVE 03/31/2021 11:37 PM FURNITURE INSTALLER [facility] Comment: THE SARS-CoV-2 TEST HAS BEEN AUTHORIZED BY THE FDA UNDER AN EUA FOR USE BY AUTHORIZED LABORATORIES. PERFORMED BY NUCLEIC ACID AMPLIFICATION PCR FIRST TEST NO 03/31/2021 11:07 AM [facility] EMPLOYED IN HEALTHCARE NO 03/31/2021 11:07 AM [facility] SYMPTOMATIC DEFINED BY CDC UNKNOWN 03/31/2021 11:07 AM [facility] HOSPITALIZATION STATUS NO 03/31/2021 11:07 AM [facility] PATIENT IN ICU NO 03/31/2021 11:07 AM [facility] NO 03/31/2021 11:07 AM FURNITURE INSTALLER [facility] UNKNOWN 03/31/2021 11:07 AM [facility] NASAL STRUCTURE / Unknown 03/31/2021 11:07 AM FURNITURE INSTALLER us Dylan Naidu DO MICROBIOLOGY - GENERAL ORDERABL ES Final Result [facility] [address] [place] [address], [place] [phone] [facility] [address] [place] [address], [place] [phone] documented in this encounter Visit Diagnoses Diagnosis Chronic constipation- Primary Unspecified constipation documented in this encounter Additional Health Concerns Infection Onset Date Last Indicated Resolved Time COVID-19 Rule Out 03/31/2021 03/31/2021 03/31/2021 11:37 PM FURNITURE INSTALLER COVID-19 Confirmed 03/31/2021 03/31/2021 02/04/202 2 12:34 AM FURNITURE INSTALLER documented as of this encounter Care Teams Assembler Unit Relationship Specialty Start Date End Date Supriya Hay PA [address] [place] [address] PCP - General PHYSICIAN DRY HOUSE WORKER 02/25/21 documented as of this encounter
--- OUTSIDE RECORDS SUMMARY | 2024-04-01 05:49 | XMS_ITS | Encounter Summary ---
Author Organization [facility] Address [address] [place] [address]. [place] [address] [place] [address] Care Team Providers Care As400 Operator Name Role Phone Supriya Hay Primary Care Provider [phone] Encounter Details Date Type Department Care Team (Latest Contact Info) Description 03/31/2021 9:10 AM RECOOPERER - 03/31/2021 11:59 PM RECOOPERER Hospital Encounter [facility] [place] [address] Dylan Naidu, DO #[address] [facility] [address] [place] [address] Discharge Disposition: Home or Self Care (Routine [...] have Coronavirus / COVID-19? No / Unsure 03/30/2021 8:14 PM RECOOPERER documented as of this encounter Medications at Time of Discharge [...] VOMITING 06/21/2020 documented as of this encounter Plan of Treatment Not on file documented as of this encounter Procedures Procedure Name Priority Date/Time Associated Diagnosis Comments CORONAVIRUS (COVID 19) STAT 03/31/2021 11:07 AM RECOOPERER Chronic constipation documented in this encounter Results * (ABNORMAL) CORONAVIRUS (COVID 19) (03/31/2021 11:07 AM RECOOPERER) SPEC DESCRIPTION NASAL 03/31/19 11:07 AM [facility] CORONAVIRUS SARS COV 2 PCR (RESP) POSITIVE(A A) NEGATIVE 03/31/2021 11:37 PM [facility][NOTE 3] () [facility] Comment: THE SARS-CoV-2 TEST HAS BEEN AUTHORIZED BY THE FDA UNDER AN EUA FOR USE BY AUTHORIZED LABORATORIES. PERFORMED BY NUCLEIC ACID AMPLIFICATION PCR FIRST TEST NO 03/31/2021 11:07 AM [facility] EMPLOYED IN HEALTHCARE NO 03/31/2021 11:07 AM [facility] SYMPTOMATIC DEFINED BY CDC UNKNOWN 03/31/2021 11:07 AM [facility] HOSPITALIZATION STATUS NO 03/31/2021 11:07 AM [facility] PATIENT IN ICU NO 03/31/2021 11:07 AM [facility] RESIDENT OF COMMUNITY HE[facility] CARE NO 03/31/2021 11:07 AM [facility] UNKNOWN 03/31/2021 11:07 AM [facility] NASAL STRUCTURE / Unknown 03/31/2021 11:07 AM RECOOPERER us Dylan Naidu DO MICROBIOLOGY - GENERAL ORDERABL ES Final Result [facility] [address] [place] [address], [place] [phone] [facility] [address] [place] [address], [place] [phone] documented in this encounter Visit Diagnoses Diagnosis Chronic constipation Unspecified constipation documented in this encounter Additional Health Concerns Infection Onset Date Last Indicated Resolved Time COVID-19 Rule Out 03/31/2021 03/31/2021 03/31/2021 11:37 PM RECOOPERER COVID-19 Confirmed 03/31/2021 03/31/2021 12:34 AM RECOOPERER documented as of this encounter Care Teams As400 Operator Relationship Specialty Start Date End Date Supriya Hay PA [address] [place] [address] PCP - General PHYSICIAN SEWING MACHINE OPERATOR PAPER BAGS 02/25/21 documented as of this encounter
--- OUTSIDE RECORDS SUMMARY | 2024-04-01 05:49 | XMS_ITS | Encounter Summary ---
Author Organization [facility] Address [address] [place] [address]. [place], [place] [id number] [place] [id number] Care Team Providers Care Striper Machine Name Role Phone Supriya Hay Primary Care Provider [phone] Encounter Details Date Type Department Care Team (Latest Contact Info) Description 04/10/2021 Travel Social History Tobacco Use Types Packs/Day [...] COVID-19? No / Unsure 03/30/2021 8:14 PM PULLEY WORKER documented as of this encounter Plan of Treatment Not on file documented as of this encounter Visit Diagnoses Not on filedocumented in this encounter Additional Health Concerns Infection Onset Date Last Indicated Resolved Time COVID-19 Confirmed 03/31/2021 03/31/2021 12:34 AM PULLEY WORKER documented as of this encounter Care Teams Striper Machine Relationship Specialty Start Date End Date Supriya Hay PA [address] [place] [address] PCP - General PHYSICIAN MATERIALS INSPECTOR 02/25/21 documented as of this encounter
--- OUTSIDE RECORDS SUMMARY | 2024-04-01 05:49 | XMS_ITS | Encounter Summary ---
Author Organization [facility] Address [address] [place] [address]. [place], [place] [id number] [place] [id number] Care Team Providers Care [employer] Supervisor Name Role Phone Supriya Hay Primary Care Provider [phone] Reason for Referral * Imaging (Urgent) - Closed Specialty Diagnoses / Procedures Referred By Melissa swanson Referred To Contact RADIOLOGY Procedures CTA CHEST Ana Rosa Dennis NP [address] [address] Phone: tel: fax: Referral ID Status Reason Start Date Expiration Date Visits Re quested Visits Authorized [id number] Closed 12/01/2021 12/01/2022 1 1 Reason for Visit * Reason Comments Leg Swelling Encounter Details Date Type Department Care Team (Late st Contact Info) Description 12/01/2021 5:33 PM CDT - 12/01/2021 9:14 PM CDT Emergency [facility] Emergency Room [place], [place] [id number] Ana Rosa Dennis NP [address] [id number] Leg Swelling Discharge Disposition: Home or Self Care (Routine [...] PM CDT documented as of this encounter Last Filed [...] Mass Index 34.39 12/01/2021 5:02 PM CDT documented in this encounter Discharge Instructions * Discharge Instructions* Ana Rosa Dennis NP - 12/01/2021 8:54 PM CDT RETURN in am for venous duplex appt time is 730, bring your order for the venous duplex and arrive about 15 minutes early for registration. Follow up with your doctor for further evaluation of your CT scan. * Attachments The following attachments cannot be sent through Care Everywhere. * Dependent Edema Discharge Instructions (British) * Vegan Diet (British) documented in this encounter Medications at Time [...] VOMITING 06/21/2020 documented as of this encounter ED Notes * Bridget Laboy RN - 12/01/2021 9:13 PM CDT Pt provided with discharge instructions. All questions answered. Pt A&O x4 and ambulatory with steady gait out of department. * Ana Rosa Dennis NP - 12/01/2021 5:05 PM CDT Emergency Department Note Chief Complaint Chief Complaint Patient presents with ??? Leg Swelling History of Present Illness 41 yo female with PMH of COVID 19 with a c/o leg swelling for 3 weeks , started at foot swelling .has had an ultrasound of legs and no DVTs. She was put on diclofenac without relief of swelling She does endorse SOB sometimes but not all the time and no chest pain, chest tightness or PND. She denies any fever or chills Has IUD Did call her doctor who recommended 'further testing.' by phone but no recommendations and has not seen patient in the office. Said she has been traveling between [facility] and [place], has had her legs propped up on the railing, watching football game. She has developed some darkness to her feet where her sandal cervantes are. And sheis eating a primarily vegetarian diet and a quart or more of water every day which she has changed about a month ago. Medical History ALLERGIES: Allergies Allergen Reactions ??? Clindamycin Shortness of Breath ??? Sulfa Antibiotics Swelling MEDICATIONS: Prior to Admission medications Medication Sig Start Date End Date Taking? Authorizing Provider cyclobenzaprine 10 MG tablet Take 10 mg by mouth 3 (three) times daily as needed. 10/05/20 DocumentsAbstract dicyclomine 20 MG tablet Take 20 mg by mouth 4 (four) times daily. 06/20/20 Documents Abstract levonorgestrel 20 MCG/24HR IUD 1 each by Intrauterine route once. Documents Abstract metoclopramide 10 MG tablet 10/23/20 Documents Abstract ondansetron 4 MG tablet TAKE 1 TABLET BY MOUTH EVERY 6 HOURS NEEDED FOR NAUSEA OR VOMITING 06/21/20 Documents Abstract PAST MEDICAL HISTORY: Past Medical History: Diagnosis Date ??? Chronic idiopathic constipation ??? COVID-19 PAST SURGICAL HISTORY: Past Surgical History: Procedure Laterality Date ??? ADENOIDECTOMY ??? CHOLECYSTECTOMY ??? COLONOSCOPY N/A 02/25/2021 COLONOSCOPY performed by Dylan Naidu, DO at [facility] ??? COLONOSCOPY N/A 04/15/2021 COLONOSCOPY-Negative performed by Dylan Naidu, DO at [facility] ??? HERNIA REPAIR ??? OTHER PROCEDURE uterine repair ??? TONSILLECTOMY FAMILY HISTORY: Family History Problem Relation Name Age of Onset ??? Diabetes Mother ??? Cancer Father SOCIAL HISTORY: Social History Tobacco Use ??? Smoking status: Never Smoker ??? Smokeless tobacco: Never Used Substance Use Topics ??? Alcohol use: Never ??? Drug use: Not Currently Review of Systems Review of Systems Respiratory: Positive for shortness of breath. Negative for chest tightness. Cardiovascular: Positive for leg swelling. Negative for chest pain and palpitations. Both legs All other systems reviewed and are negative. Physical Exam Filed Vitals: 12/01/21 1702 12/01/212011 BP: 104/66 128/76 Pulse: 94 59 Resp: 18 Temp: 97.2 ??F (36.2 ??C) TempSrc: Temporal SpO2: 99% 100% Weight: 85.3 kg (188 lb) Height: 5' 2 (1.575 m) Physical Exam Vitals reviewed. Constitutional: General: She is not in acute distress. Appearance: She is well-developed. HENT: Head: Normocephalic. Eyes: Pupils: Pupils are equal, round, and reactive to light. Cardiovascular: Rate and Rhythm: Normal rate and regular rhythm. Heart sounds: Normal heart sounds. No murmur heard. Pulmonary: Effort: Pulmonary effort is normal. Breath sounds: Normal breath sounds. No stridor. No rhonchi. Abdominal: General: Bowel sounds are normal. Palpations: Abdomen is soft. Tenderness: There is no abdominal tenderness. Musculoskeletal: General: No tenderness. Cervical back: Neck supple. Right lower leg: Edema present. Left lower leg: Edema present. Comments: Trace bilateral lower extremity non pitting edema. Walking. No calf tenderness and no cords. No erythema to legs. Skin: General: Skin is warm and dry. Coloration: Skin is not pale. Neurological: Mental Status: She is alert and oriented to person, place, and time. Psychiatric: Behavior: Behavior normal. Thought Content: Thought content normal. Judgment: Judgment normal. Diagnostic Studies / Procedures ELECTROCARDIOGRAMS: Results for orders placed or performed during the hospital encounter of 12/01/21 [address] 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1980 Requested By: ANA ROSA DENNIS Order Number: [id number] Reading MD: Measurements Intervals [place] Rate: 84 P: 50 CT: 144 QRS: 14 QRSD: 78 T: 46 QT: 345 QTc: 408 Interpretive Statements SINUS RHYTHM WITH SINUS ARRHYTHMIA POSSIBLE ANTERIOR MYOCARDIAL INFARCTION , PROBABLY OLD [30 ms Q WAVE IN V3/V4, OR R < 0.2 mV IN V4] No previous ECG available for comparison Rhythm: S Rate: 84 QTc: 408 Ectopy : no Overview of Ekg interpretation provided by ERP other ischemic changes No STEMI Prior EKG for comparison none Reviewed and scribed by me, MARKET RELATIONSHIP MANAGER LABORATORY STUDIES: Results for orders placed or performed during the hospital encounter of 12/01/21 CBC W/DIFF AUTOMATED Result Value Ref Range WBC 6.7 4.5 - 11.0 x10'3/uL RBC 4.31 4.20 - 5.40 x10'6/uL HGB 13.1 12.0 - 16.0 G/DL HCT 39.6 38.0 - 48.0 % MCV 91.9 81.0 - 99.0 FL MCH 30.4 27.0 - 31.0 PG MCHC 33.1 32.0 - 36.0 G/DL RDW 14.7 (H) 11.5 - 14.5 % PLT 274 130 - 400 x10'3/uL MPV 10.7 9.3 - 12.2 FL DIFFERENTIAL TYPE AUTOMATED DIFFERENTIAL NEUTROPHILS 67.2 % LYMPHOCYTES 26.5 % MONOCYTES 4.6 % EOSINOPHILS 1.0 % BASOPHILS 0.4 % IMMATURE GRANS 0.3 % ABS. NEUTROPHILS TOTAL 4.51 1.80 - 7.70 x10'3/uL ABS. LYMPHOCYTES 1.78 1.00 - 4.80 x10'3/uL ABS. MONOCYTES 0.31 0.24 - 0.86 x10'3/uL ABS. EOSINOPHILS 0.07 0.04 - 0.36 x10'3/uL ABS. BASOPHILS 0.03 0.01 - 0.08 x10'3/uL ABS. IMMATURE GRANULOCYTES 0.02 0.00 - 0.49 x10'3/uL PROTIME/INR, VENOUS Result Value Ref Range Protime 10.6 10.2 - 12.9 SEC INR 0.9 TROPONIN, QUANT Result Value Ref Range TROPONIN I HIGH SENSITIVITY 5 <54 ng/L COMPREHENSIVE METABOLIC PANEL Result Value Ref Range GLUCOSE 94 70 - 99 MG/DL BUN 8 7 - 18 MG/DL CREATININE S/P/B 0.82 0.55 - 1.02 MG/DL SODIUM 141 136 - 145 MMOL/L POTASSIUM 3.4 (L) 3.5 - 5.1 MMOL/L CHLORIDE S/P/B 109 (H) 100 - 108 MMOL/L CO2 29.4 21 - 32 MMOL/L CALCIUM 8.1 (L) 8.5 - 10.1 MG/DL BILIRUBIN TOTAL S/P/B 0.1 (L) 0.2 - 1.2 MG/DL TOTAL PROTEIN S/P/B 5.8 (L) 6.4 - 8.2 G/DL ALBUMIN S/P/B 2.8 (L) 3.4 - 5.0 G/DL AST 24 15 - 37 U/L ALT 28 14 - 55 U/L ALKALINE PHOSPHATASE S/P/B 72 50 - 136 U/L ANION GAP 2.6 (L) 5 - 15 MMOL/L BUN CREATININE RATIO 9.8 6 - 26 A/G RATIO 0.9 (L) 1.0 - 2.0 RATIO GFR ESTIMATE >90 >90 ML/MIN/1.73 M2 D-DIMER, QUANTITATIVE Result Value Ref Range D-DIMER 606 (HH) 0 - 500 ng[FEU]/mL CHORIONIC GONADOTROPIN HCG QL Result Value Ref Range PREG SCREEN-SERUM NEGATIVE IMAGING STUDIES CTA CHEST Final Result by User, [id number] (12/01 2005) Date: 12/01/2021 7:30 PM Exam: CTA CHEST Comparison: Chest radiography dated 12/01/2021. Technique: Thin section images were obtained of the chest with a CTA pulmonary embolism protocol and with IV contrast. 80 ml of Isovue-370 thru an existing IV site in the left antecubital fossa. Coronal, sagittal and coronal 3D MIP reconstructions. A dose lowering technique was used for this procedure, which may include, but is not limited to, dose reduction technique, automated exposure control, the use of iterative reconstruction, and ALARA (As Low As Reasonably Achievable)/ Image gently techniques. History: COVID-19. Leg swelling for 3 weeks. Shortness of breath. Findings: CHEST: There is a tiny hiatal hernia. The heart size is normal without pericardial effusion. The thoracic aorta and great vessels appear normal. The pulmonary arteries are patent without evidence of pulmonary embolism. The tracheal and main bronchial airways are patent. There are no consolidations nor pleural effusions. There is no pneumothorax. Visualized upper abdomen: The visualized portions of the liver, spleen, adrenal glands and upper kidneys appear to be within normal limits. The gallbladder is surgically absent. There is a 6 mm hypodense lesion in the pancreatic tail as seen on series 4 image 113. This measures -43 Hounsfield units and is possibly a small pancreatic lipoma. If further workup is desired, would consider IV enhanced pancreatic MRI. Osseous structures: There is slight scoliosis in the spinal column. The osseous structures are otherwise unremarkable. Impression: 1. No pulmonary embolism. No acute cardiopulmonary disease process. 2. Cholecystectomy. 3. 6 mm lesion in the pancreatic tail is indeterminate for a small lipoma. If further workup is desired, would consider IV enhanced pancreatic MRI. Referred By: Interpreted By: Regan Mcgregor MD, 12/01/2021 7:59 PM XR CHEST PA+LAT Final Result by User, [id number] (12/01 1900) EXAMINATION: X-ray chest HISTORY: Lower extremity swelling. Edema. COMPARISON: None. TECHNIQUE: PA and lateral view chest. FINDINGS: The heart size and vascular markings are within normal limits. No evidence of pneumonia, pleural effusion, or pneumothorax. Small scattered benign calcified nodules and lymph nodes are noted. IMPRESSION: No radiographic evidence of acute chest disease. Referred By: Interpreted By: Percy Pierson DO, 12/01/2021 6:59 PM USV MEGAN DUPLEX LOW EXT JORDEN (Results Pending) ED Course / Medical Decision Making Results: I reviewed old medical records, obtained from Care Everywhere, as well as internal past medical records, where needed and available. I interpreted the patient's pulse oximeter at rest, which is 100% on room air which is normal and determined that this patient is not hypoxic The elements of the HPI, review of systems, past medical history, past surgical history, past family history, social history, medication list, allergies, and examination documented above were personally obtained by me via direct interaction of the patient when possible, with the exception of circumstances or patient factors limiting my ability to do so, as above. In instances where nursing or other providers documented this information prior to my encounter, I personally confirmed the accuracy of this information to the best of my ability given the circumstances. Laboratory Data Reviewed: Noted labs, and abnormals noted on work sheet Imaging Studies Reviewed: Read interpretation report from radiologist. Reviewed images of xrays, independently. Did not speakwith radiologist re: cxr, CTA Single view Chest x-ray reviewed, heart size normal, no pneumothorax and no infiltrate. ED Course: ED Course as of 12/01/21 2345 Mon Dec 01, 2021 1836 TROPONIN I HIGH SENSITIVITY: 5 [LM] 1836 POTASSIUM(!): 3.4 [LM] 1836 ALBUMIN S/P/B(!): 2.8 [LM] ED Course User Index [LM] Ana Rosa Dennis NP Outpatient recommendation to PCP and venous duplex in am 730am ordered, and provided with phone number to call for an appointment. Patient instructed to call on the next business day during business hours, and informed that he should be evaluated by this specialist within 1 week Patient provided with printed and verbal discharge care instructions and was instructed to return to the emergency department immediately with worsening symptoms or new worrisome symptoms. I did spend time answering questions. Patient condition at time of discharge / stable Diagnoses & treatment discussed with patient Patient expressed understanding and agreed. 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 ANA ROSA DENNIS NP 12/01/2021 Note: NOTE: I dictated portions of this note using [employer] speech recognition software. Occasional wrong word or sound-alike substitutions may have occurred due to the inherent limitations of voice recognition software. Ana Rosa Dennis NP 12/01/212345 Cosigned by Heath Jones MD at 12/02/2021 1:47 PM CDT * Albino Garcia RN - 12/01/2021 5:01 PM CDT PT came into the ED with c/o leg and foot swelling starting 3 weeks ago. PT reports she was seen for the same issue, but nothing was found. PT reports the swelling started in her feet, and has now spread to her legs. PT vitals stable at this time. PT A&OX4. documented in this encounter Plan of Treatment Not on file documented as of this encounter Procedures Procedure Name Priority Date/Time Associated Diagnosis Comments CTA CHEST STAT 12/01/2021 7:47 PM CDT XR CHEST PA+LAT STAT 12/01/2021 6:58 PM CDT CHORIONIC GONADOTROPIN HCG QL STAT 12/01/2021 6:54 PM CDT ECG 12-LEAD Routine 12/01/2021 5:46 PM CDT PROTHROMBIN TIME, VENOUS STAT 12/01/2021 5:39 PM CDT COMPREHENSIVE METABOLIC PANEL STAT 12/01/2021 5:39 PM CDT D-DIMER, QUANTITATIVE STAT 12/01/2021 5:39 PM CDT CBC W/DIFF AUTOMATED STAT 12/01/2021 5:39 PM CDT TROPONIN, QUANT STAT 12/01/2021 5:39 PM CDT documented in this encounter Results * CTA CHEST (12/01/2021 7:47 PM CDT) Anatomical Region Laterality Modality Chest Computed Tomogra phy 12/01/2021 7:59 PM CDT Impressions 12/01/2021 8:05 PM CDT Impression: 1. ??No pulmonary embolism. ??No acute cardiopulmonary disease process. 2. ??Cholecystectomy. 3. ??6 mm lesion in the pancreatic tail is indeterminate for a small lipoma. ??If further workup is desired, would consider IV enhanced pancreatic MRI. Referred By: ?? Interpreted By: Regan Mcgregor MD, 12/01/2021 7:59 PM Narrative 12/01/2021 8:05 PM CDT Date: 12/01/2021 7:30 PM Exam: CTA CHEST Comparison: Chest radiography dated 12/01/2021. Technique: Thin section images were obtained of the chest with a CTA pulmonary embolism protocol and with IV contrast. 80 ml of Isovue-370 thru an existing IV site in the left antecubital fossa. Coronal, sagittal and coronal 3D MIP reconstructions. A dose lowering technique was used for this procedure, which may include, but is not limited to, dose reduction technique, automated exposure control, the use of iterative reconstruction, and ALARA (As Low As Reasonably Achievable)/ Image gently techniques. History: COVID-19. ??Leg swelling for 3 weeks. ??Shortness of breath. Findings: CHEST: There is a tiny hiatal hernia. ??The heart size is normal without pericardial effusion. ??The thoracic aorta and great vessels appear normal. ??The pulmonary arteries are patent without evidence of pulmonary embolism. ??The tracheal and main bronchial airways are patent. ??There are no consolidations nor pleural effusions. ??There is no pneumothorax. Visualized upper abdomen: The visualized portions of the liver, spleen, adrenal glands and upper kidneys appear to be within normal limits. ??The gallbladder is surgically absent. ??There is a 6 mm hypodense lesion in the pancreatic tail as seen on series 4 image 113. ??This measures -43 Hounsfield units and is possibly a small pancreatic lipoma. ??If further workup is desired, would consider IV enhanced pancreatic MRI. Osseous structures: There is slight scoliosis in the spinal column. ??The osseous structures are otherwise unremarkable. Procedure Note Regan Mcgregor MD - 12/01/2021 Date: 12/01/2021 7:30 PM Exam: CTA CHEST Comparison: Chest radiography dated 12/01/2021. Technique: Thin section images were obtained of the chest with a CTApulmonary embolism protocol and with IV contrast. 80 ml of Isovue-370 thruan existing IV site in the left antecubital fossa. Coronal, sagittal andcoronal 3D MIP reconstructions. A dose lowering technique was used forthis procedure, which may include, but is not limited to, dose reductiontechnique, automated exposure control, the use of iterativereconstruction, and ALARA (As Low As Reasonably Achievable)/ Image gentlytechniques. History: COVID-19. Leg swelling for 3 weeks. Shortness of breath. Findings: CHEST: There is a tiny hiatal hernia. The heart size is normal withoutpericardial effusion. The thoracic aorta and great vessels appear normal.The pulmonary arteries are patent without evidence of pulmonary embolism.The tracheal and main bronchial airways are patent. There are noconsolidations nor pleural effusions. There is no pneumothorax. Visualized upper abdomen: The visualized portions of the liver, spleen,adrenal glands and upper kidneys appear to be within normal limits. Thegallbladder is surgically absent. There is a 6 mm hypodense lesion in thepancreatic tail as seen on series 4 image 113. This measures -43Hounsfield units and is possibly a small pancreatic lipoma. If furtherworkup is desired, would consider IV enhanced pancreatic MRI. Osseous structures: There is slight scoliosis in the spinal column. Theosseous structures are otherwise unremarkable. Impression: 1. No pulmonary embolism. No acute cardiopulmonary disease process. 2. Cholecystectomy. 3. 6 mm lesion in the pancreatic tail is indeterminate for a smalllipoma. If further workup is desired, would consider IV enhancedpancreatic MRI. Referred By: Interpreted By: Regan Mcgregor MD, 12/01/2021 7:59 PM Ana Rosa Ruth Dennis MARKET RELATIONSHIP MANAGER CT Final Result * XR CHEST PA+LAT (12/01/2021 6:58 PM CDT) Anatomical Region Laterality Modality Chest Radiographic Ladan ging 12/01/2021 6:59 PM CDT Impressions 12/01/2021 7:00 PM CDT IMPRESSION: No radiographic evidence of acute chest disease. Referred By: ?? Interpreted By: Percy Pierson DO, 12/01/2021 6:59 PM Narrative 12/01/2021 7:00 PM CDT EXAMINATION: X-ray chest HISTORY: Lower extremity swelling. ??Edema. COMPARISON: None. TECHNIQUE: PA and lateral view chest. FINDINGS: The heart size and vascular markings are within normal limits. ??No evidence of pneumonia, pleural effusion, or pneumothorax. ??Small scattered benign calcified nodules and lymph nodes are noted. ?? Procedure Note Percy Pierson DO - 12/01/2021 EXAMINATION: X-ray chest HISTORY: Lower extremity swelling. Edema. COMPARISON: None. TECHNIQUE: PA and lateral view chest. FINDINGS: The heart size and vascular markings are within normal limits. Noevidence of pneumonia, pleural effusion, or pneumothorax. Small scatteredbenign calcified nodules and lymph nodes are noted. IMPRESSION: No radiographic evidence of acute chest disease. Referred By: Interpreted By: Percy Pierson DO, 12/01/2021 6:59 PM us Ana Rosa Dennis MARKET RELATIONSHIP MANAGER GENERAL IMAGING Final Result * CHORIONIC GONADOTROPIN HCG QL (12/01/2021 6:54 PM CDT) PREG SCREEN-SERUM NEGATIVE 12/01/2021 7:21 PM CDT [facility] 12/01/2021 6:54 PM CDT us Ana Rosa Dennis NP LABORATORY Final Result [facility] [address] [place] [address], [place] [phone] * ECG 12 lead (12/01/2021 5:46 PM CDT) 12/01/2021 5:46 PM CDT Narrative [facility] - 12/02/2021 8:39 AM CDT ?[facility] ? [address], [place] ? Test Date: ?2021-12-01 Pat Name: ? AZIZA WILLAMS ? Department: ?? 41 ? Room: ? EXAM23 Gender: ? Female ? 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 Requested By: ANA ROSA DENNIS Order Number: [id number] ? Reading MD: ?? Manjinder Clarke ? Measurements Intervals ?[place] ? Rate: ? 84 ? P: ?50 CT: ? 144 ?QRS: ?14 QRSD: ? 78 ? T: ?46 QT: ? 345 ? QTc: ?408 ? 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1980 Requested By: ANA ROSA DENNIS Order Number: [id number] Reading MD: Manjinder Clarke Measurements Intervals [place] Rate: 84 P: 50 CT: 144 QRS: 14 QRSD: 78 T: 46 QT: 345 QTc: 408 Interpretive Statements SINUS RHYTHM WITH SINUS ARRHYTHMIA No previous ECG available for comparison Preliminary EKG interpretation by ED Physician Other ischemic changes, not STEMI Sheri Uzair, MARKET RELATIONSHIP MANAGER CRITICAL ALERT ISSUED ON 12-01-2021 18:02:33 us Ana Rosa Dennis MARKET RELATIONSHIP MANAGER ECG ORDERABLES Final Result [facility] * (ABNORMAL) D-DIMER, QUANTITATIVE (12/01/2021 5:39 PM CDT) D-DIMER 606(HH) 0 - 500 ng{FEU}/mL 12/01/2021 6:39 PM CDT [facility] Comment: D-Dimer values less than or equal to 500 ng/mL FEU have a negative predictive value of >95% for exclusion of deep vein thrombosis and pulmonary embolism. In patients over 50 (who tend to have higher normal baseline D-Dimer values), recent studies suggest age-adjusted D-Dimer cutoff values (calculated as: age [years] x 10 ng/mL) result in equivalent outcomes and no additional false negative findings. Successful Call: [facility]IMR called 12/01/2021 06:40 PM to EMERGENCY ROOM ([id number]/EMILY HARRY) by [id number]. Read Back: Yes 12/01/2021 5:39 PM CDT us Ana Rosa Dennis NP LABORATORY Final Result [facility] [address] [place] [address], [place] [phone] * (ABNORMAL) COMPREHENSIVE METABOLIC PANEL (12/01/2021 5:39 PM CDT) Pathologist [facility] GLUCOSE 94 70 - 99 MG/DL 12/01/2021 6:18 PM CDT [facility] BUN 8 7 - 18 MG/DL 12/01/2021 6:18 PM CDT [facility] CREATININE S/P/B 0.82 0.55 - 1.02 MG/DL 12/01/2021 6:18 PM CDT [facility] SODIUM S/P/B 141 136 - 145 MMOL/L 12/01/2021 6:18 PM CDT [facility] POTASSIUM S/P/B 3.4(L) 3.5 - 5.1 MMOL/L 12/01/2021 6:18 PM CDT [facility] CHLORIDE S/P/B 109(H) 100 - 108 MMOL/L 12/01/2021 6:18 PM CDT [facility] CO2 29.4 21 - 32 MMOL/L 12/01/2021 6:18 PM CDT [facility] CALCIUM S/P/B 8.1(L) 8.5 - 10.1 MG/DL 12/01/2021 6:18 PM T [facility] BILIRUBIN TOTAL S/P/B 0.1(L) 0.2 - 1.2 MG/DL 12/01/2021 6:18 PM T [facility] Comment: THIS ASSAY IS NOT RECOMMENDED FOR PATIENTS UNDERGOING TREATMENT WITH ELTROMBOPAG DUE TO THE POTENTIAL FOR FALSELY ELEVATED RESULTS. TOTAL PROTEIN S/P/B 5.8(L) 6.4 - 8.2 G/DL 12/01/2021 6:18 PM T [facility] ALBUMIN S/P/B 2.8(L) 3.4 - 5.0 G/DL 12/01/2021 6:18 PM T [facility] AST 24 15 - 37 U/L 12/01/2021 6:18 PM T [facility] ALT 28 14 - 55 U/L 12/01/2021 6:18 PM T [facility] ALKALINE PHOSPHATASE S/P/B 72 50 - 136 U/L 12/01/2021 6:18 PM [facility] ANION GAP 2.6(L) 5 - 15 MMOL/L 12/01/2021 6:18 PM [facility] BUN CREATININE RATIO 9.8 6 - 26 12/01/2021 6:18 PM T [facility] A/G RATIO 0.9(L) 1.0 - 2.0 RATIO 12/01/2021 6:18 PM [facility] GFR ESTIMATE >90 >90 ML/MIN/1.7 3 M2 12/01/2021 6:18 PM T [facility] Comment: NOTE: eGFR is not calculated for patients <18 years of age. This is an estimated GFR calculation using the new CKD EPI creatinine equation without race and so does not require a correction factor for race. This estimated GFR should not be used for calculating drug doses. 12/01/2021 5:3 9 PM CDT Ana Rosa Dennis MARKET RELATIONSHIP MANAGER LABORATORY Final Result Performing Organization Address City/[facility] Co de Phone Number [facility] [address] [place] [address], [place] [phone] * TROPONIN, QUANT (12/01/2021 5:39 PM CDT) TROPONIN I HIGH SENSITIVITY 5 <54 ng/L 12/01/2021 6:18 PM CDT [facility] Comment: HIGH DOSES OF BIOTIN, TROPONIN-SPECIFIC AUTOANTIBODIES, AND ANTIBODY THERAPY CONTAINING HAMA MAY INTERFERE WITH THIS TEST RESULT. CORRELATION TO CLINICAL HISTORY AND PRESENTATION RECOMMENDED. 12/01/2021 5:39 PM CDT us Ana Rosa Dennis MARKET RELATIONSHIP MANAGER LABORATORY Final Result Performing Organization Address [facility] de Phone Number [facility] [address] [place] [address], [place] [phone] * PROTIME/INR, VENOUS (12/01/2021 5:39 PM CDT) PROTIME 10.6 10.2 - 12.9 SEC 12/01/2021 6:39 PM CDT [facility] INR 0.9 12/01/2021 6:39 PM CDT [facility] Comment: Recommended INR Therapeutic Goals: ??2.0-3.0 Routine Therapy ??2.5-3.5 Mechanical Prosthetic Valves (High Risk) 12/01/2021 5:39 PM CDT us Ana Rosa Ruth Dennis NP LABORATORY Final Result [facility] [address] [place] [address], * (ABNORMAL) CBC W/DIFF AUTOMATED (12/01/2021 5:39 PM CDT) WBC 6.7 4.5 - 11.0 x10'3/uL 12/01/2021 5:57 PM CDT [facility] RBC 4.31 4.20 - 5.40 x10'6/uL 12/01/2021 5:57 PM CDT [facility] HGB 13.1 12.0 - 16.0 G/DL 12/01/2021 5:57 PM CDT [facility] HCT 39.6 38.0 - 48.0 % 12/01/2021 5:57 PM CDT [facility] MCV 91.9 81.0 - 99.0 FL 12/01/2021 5:57 PM CDT [facility] MCH 30.4 27.0 - 31.0 PG 12/01/2021 5:57 PM CDT [facility] MCHC 33.1 32.0 - 36.0 G/DL 12/01/2021 5:57 PM CDT [facility] RDW 14.7(H) 11.5 - 14.5 % 12/01/2021 5:57 PM CDT [facility] PLT 274 130 - 400 x10'3/uL 12/01/2021 5:57 PM CDT [facility] MPV 10.7 9.3 - 12.2 FL 12/01/2021 5:57 PM CDT [facility] DIFFERENTIAL TYPE AUTOMATED DIFFERENTIAL 12/01/2021 5:57 PM CDT [facility] NEUTROPHILS % 67.2 % 12/01/2021 5:57 PM CDT [facility] LYMPHOCYTES % 26.5 % 12/01/2021 5:57 PM CDT [facility] MONOCYTES % 4.6 % 12/01/2021 5:57 PM CDT [facility] EOSINOPHILS 1.0 % 12/01/2021 5:57 PM CDT [facility] BASOPHILS 0.4 % 12/01/2021 5:57 PM CDT [facility] IMMATURE GRANS % 0.3 % 12/02/19 5:57 PM CDT [facility] ABS. NEUTROPHILS TOTAL 4.51 1.80 - 7.70 x10'3/uL 12/01/2021 5:57 PM CDT [facility] ABS. LYMPHOCYTES 1.78 1.00 - 4.80 x10'3/uL 12/01/2021 5:57 PM CDT [facility] ABS. MONOCYTES 0.31 0.24 - 0.86 x10'3/uL 12/01/2021 5:57 PM CDT [facility] ABS. EOSINOPHILS 0.07 0.04 - 0.36 x10'3/uL 12/01/2021 5:57 PM CDT [facility] ABS. BASOPHILS 0.03 0.01 - 0.08 x10'3/uL 12/01/2021 5:57 PM CDT [facility] ABS. 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 85.3 kg), Subcutaneous, Every 12 hours, First dose on Wed12/01/21 at 2014, Until Discontinued, Administer by deep SubQ injection alternating between the left or right anterolateral and left or right posterolateral abdominal wall. Given 12/01/2021 8:30 PM CDT 80 mg Left Lower Abdomen iopamidol (ISOVUE-370) 76 % injection 80 mL 80 mL, Intravenous, IMG once as needed, Contrast, 1 dose, Starting on Wed12/01/21 at 1947, Until Wed12/01/21 at 194 Given 12/01/2021 7:48 PM CDT 80 mLs Left Arm documented in this encounter Active and Recently Administered Medications Times are shown in CDT. Scheduled Medication Order 11/29/2021 11/30/2021 12/01/2021 enoxaparin (LOVENOX) 80 mg/0.8 mL syringe 80 mg 80 mg (rounded from 85.3 mg = 1 mg/kg ? 85.3 kg), Subcutaneous, Every 12 hours, First dose on Wed12/01/21 at 2014, Until Discontinued, Administer by deep SubQ injection alternating between the left or right anterolateral and left or right posterolateral abdominal wall. 2029 (Given - Provid er: Elida Rosen RN) PRN Medication Order 11/29/2021 11/30/2021 12/01/2021 iopamidol (ISOVUE-370) 76 % injection 80 mL (COMPLETED) 80 mL, Intravenous, IMG once as needed, Contrast, 1 dose, Starting on Wed12/01/21 at 1947, Until Wed12/01/21 at 1948 1948 (Given - Provid er: Nikky Alexandre, RTR) documented in this encounter Care Teams Tree Fruit And Nut Farming Supervisor Relationship Specialty Start Date End Date Supriya Hay PA [address] [place] [address] PCP - General PHYSICIAN MOHEL 02/25/21 documented as of this encounter
--- OUTSIDE RECORDS SUMMARY | 2024-04-01 05:49 | XMS_ITS | Encounter Summary ---
Author Organization [facility] Address [address] [place] [address]. [place] [address] [place] [address] Care Team Providers Care Foundry Worker General Name Role Phone Supriya Hay Primary Care Provider [phone] Reason for Visit * Auth/Cert Specialty Diagnoses / Procedures Referred By Melissa swanson Referred To Contact Diagnoses chronic constipation Procedures COLONOSCOPY Referral ID Status Reason Start Date Expiration Date Visits Re quested Visits Authorized [id number] 1 1 Encounter Details Date Type Department Care Team (Late st Contact Info) Description 04/15/2021 12:18 PM MARKETING COMMUNICATIONS COORDINATOR Anesthesia Event [facility] [place] [address] Helio Everett MD [facility] [id number] [place] [address] [phone] (Work) Anesthesia Record Procedure Summary Procedure Name Responsible Anesthesiologist Anesthesia Start Time Anesthesia Stop Time COLONOSCOPY-Negativ e Helio Everett MD 04/15/21 1218 04/15/21 1244 Events Date Time Event Comment 04/15/2021 1140 1208 AN STUCCO LABORER Prepped 1217 An Start Data 1217 Nasal Cannula Applied 1218 An Start Patient ID and consent checked and patient reassessed. 1218 Anesthesia Ready 1224 An Induction The patient was reevaluated immediately before moderate or deep sedation use and before anesthesia induction. 1241 An Emergence 1244 Nasal Cannula Removed 1244 an stop data 1244 Post Anesthetic Care Handoff I completed my handoff to the receiving nurse during which we: 1. Identified the patient 2. Identified the responsible provider 3. Reviewed the pertinent medical history 4. Discussed the surgical course 5. Reviewed intra-op anesthesia management and issues during anesthesia 6. Set expectations for post-procedure period 7. Allowed opportunity for questions and acknowledgement of understanding. 1244 An Stop Meds Name Total lidocaine (PF) (XYLOCAINE) 2% injection 50 mg propofol (DIPRIVAN) 200 mg/20 mL injecti on 240 mg lactated ringers infusion 300 mL * Agents Name O2 N2O Air Ancillary O2 * Blood No blood administrations on file. Lines, Drains, and Airways Type Details Placement Removal Peripheral IV Placement Date: 03/23 08/10; Placement Time: 1149; Placed Outside of This Facility?: No; Size: 20 G; Orientation: Right; Location: Antecubital; Site Prep: Chlorhexidine; Local Anesthetic: None; Inserted By: Silvia BEYER; Insertion attempts: 1; Ultrasound-guided Placement?: No; Patient Tolerance: Tolerated well; Removal Date: 04/15/21; Removal Time: 1318; Removal Reason: Patient Discharged 04/15/21 1149 by Silvia Samaniego RN 04/15/21 1318 by Supriya Pratt RN documented in this encounter Social History Tobacco [...] Coronavirus / COVID-19? Yes 04/15/2021 11:28 AM MARKETING COMMUNICATIONS COORDINATOR documented as of this encounter OR Notes * Anesthesia Postprocedure Evaluation - Helio Everett MD - 04/15/2021 12:47 PM CST Anesthesia Post-op Note Aziza Lockhart Procedure(s): COLONOSCOPY-Negative (N/A ) Anesthesia type: general Vitals: 04/15/21 1305 BP: 107/77 Vitals: 04/15/21 1305 Pulse: 68 Vitals: 04/15/21 1305 Resp: 15 Vitals: 04/15/21 1243 Temp: 36.7 ??C Vitals: 04/15/21 1305 SpO2: 100% Patient Location: Other (Endoscopy Suite) Level of Consciousness: awake, alert and oriented Pain Management: adequate analgesia Airway Patency: patent Respiratory Status: spontaneous ventilation, nonlabored ventilation and room air Cardiovascular Status: hemodynamically stable Post-Op Nausea: none Postoperative Hydration: euvolemic There were no known complications for this encounter. ETING COMMUNICATIONS COORDINATOR * Anesthesia Postprocedure Evaluation - Helio Everett MD - 04/15/2021 12:35 PM CST Anesthesia Post-op Note Aziza Lockhart Procedure(s): COLONOSCOPY-Negative (N/A ) Anesthesia type: general Vitals: 04/15/21 1305 BP: 107/77 Vitals: 04/15/21 1305 Pulse: 68 Vitals: 04/15/21 1305 Resp: 15 Vitals: 04/15/21 1243 Temp: 36.7 ??C Vitals: 04/15/21 1305 SpO2: 100% Patient Location: Phase II/Outpatient Level of Consciousness: awake and oriented Pain Management: adequate analgesia Airway Patency: patent Respiratory Status: acceptable, spontaneous ventilation, nonlabored ventilation and room air Cardiovascular Status: acceptable Post-Op Nausea: none Postoperative Hydration: euvolemic Comments: No anesthetic related complaints are voiced There were no known complications for this encounter. ETING COMMUNICATIONS COORDINATOR * Anesthesia Preprocedure Evaluation - Helio Everett MD - 04/15/2021 11:30 AM CST Anesthesia ROS/MED History Reviewed: Patient summary , Family history anesthesia, Anesthesia history , Medications , Unchecked boxes arenot applicable Pre-Anesthetic State: alert, awake and responds appropriately no history of anesthetic complications (Negative MH, FH) Pulmonary (-) pneumonia, recent URI, sleep apnea, asthma, smoker ROS comment: Covid - 19 Positive 03/31/2021 Cardiovascular neg cardio ROS Neuro/Psych neg neuro/psych ROS (-) no substance use GI/Hepatic/Renal (-) GERD Comments: Pre-op diagnosis: chronic constipation Endo/Other (+) obese (-) diabetes, hypothyroidism, arthritis, blood dyscrasia Comments: Pre-op diagnosis: chronic constipation GENERAL COMMENTS Past Surgical History: No date: ADENOIDECTOMY No date: CHOLECYSTECTOMY No date: HERNIA REPAIR No date: OTHER PROCEDURE Comment: uterine repair No date: TONSILLECTOMY Past Medical History: No date: Chronic idiopathic constipation Physical Evaluation Airway Mallampati: II TM Distance: >3 FB Neck ROM: normal Dental Comment: Braces; Teeth good repair Pulmonary Breath sounds clear to auscultation Cardiovascular Rhythm: regular Rate: normal Other findings: Height: 5' 2 (1.575 m) (04/07/21) Weight: 83 kg (183 lb) (04/07/21) BMI: 33.47 IBW: 50.1 kg (110 lb 7.8 oz) No results for input(s): WBC, RBC, HGB, HCT, PLT, NA, K, CL, CO2, AGAP, BUN, CR, BUNCREATININ, GFRNON, GFR, GLU, CA in the last 72 hours. Anesthesia Plan ASA 2 Intravenous Induction Anesthesia type: general TIVA/ General Anesthesia Plan for Airway: Nasal cannula / Simple face mask Plan for Post Operative Pain: IV analgesics, Oral pain medications per surgeon Nature, alternatives, and risks of plan discussed with patient / guardian including but not limitedto potential corneal abrasion, visual impairment or visual loss, dental injury and damage, esophageal injury, sore throat, awareness, nerve injury secondary to positioning, aspiration, respirtory depr ession, apnea, and respiratory support, hypoxemia, cardiac injury,brain injury, adverse drug reaction, drug allergic reaction, and . Patient expresses understanding that Dr Everett not liable or responsible for dental damage. All questions answered. Informed Consent Anesthetic plan and risks discussed with patient of whom consent was obtained. . ETING COMMUNICATIONS COORDINATOR documented in this encounter Plan of Treatment [...] rate, Pre-Op New Bag 04/15/2021 12:17 PM MARKETING COMMUNICATIONS COORDINATOR lidocaine (PF) (XYLOCAINE) 2 % injection Intravenous, PRN, Starting on Wed04/15/21 at 1224, Until Wed04/15/21 at 1244, Anesthesia Intra-Op Given 04/15/2021 12:24 PM MARKETING COMMUNICATIONS COORDINATOR 50 mg propofol (DIPRIVAN) IV bolus Intravenous, PRN, Starting on Wed04/15/21 at 1224, Until Wed04/15/21 at 1244, Anesthesia Intra-Op Given 04/15/2021 12:36 PM MARKETING COMMUNICATIONS COORDINATOR 50 mg Given 04/15/2021 12:31 PM MARKETING COMMUNICATIONS COORDINATOR 50 mg Given 04/15/2021 12:28 PM MARKETING COMMUNICATIONS COORDINATOR 50 mg documented in this encounter Additional Health Concerns Infection Onset Date Last Indicated Resolved Time COVID-19 Confirmed 03/31/2021 03/31/2021 12:34 AM MARKETING COMMUNICATIONS COORDINATOR documented as of this encounter Care Teams Foundry Worker General Relationship Specialty Start Date End Date Supriya Hay PA [address] [place] [address] PCP - General PHYSICIAN OUTSIDE PHYSICAL DAMAGE APPRAISER 02/25/21 documented as of this encounter
--- OUTSIDE RECORDS SUMMARY | 2024-04-01 05:49 | XMS_ITS | Encounter Summary ---
Author Organization [facility] Address [address] [place] [address]. [place], [place] [address] [place] [address] Care Team Providers Care Commercial Airplane Pilot Name Role Phone Supriya Hay Primary Care Provider Encounter Details Date Type Department Care Team (Latest Contact Info) Description 03/30/2021 Travel Social History Tobacco Use Types Packs/Day [...] COVID-19? No / Unsure 03/30/2021 8:14 PM INSPECTOR WELDED PARTS documented as of this encounter Plan of Treatment Not on file documented as of this encounter Visit Diagnoses Not on filedocumented in this encounter Care Teams Commercial Airplane Pilot Relationship Specialty Start Date End Date Supriya Hay PA [address] [place] [address] PCP - General PHYSICIAN MOLD FILLER 02/25/21 documented as of this encounter
--- OUTSIDE RECORDS SUMMARY | 2024-04-01 05:49 | XMS_ITS | Encounter Summary ---
Author Organization [facility] Address [address] [place] [address]. [place], [place] [id number] [place] [address] Care Team Providers Care Senior Program Planner Name Role Phone Supriya Hay Primary Care Provider [phone] Encounter Details Date Type Department Care Team (Latest Contact Info) Description 03/31/2021 Travel Social History Tobacco Use Types Packs/Day [...] COVID-19? No / Unsure 03/30/2021 8:14 PM RADIATION MONITOR documented as of this encounter Plan of Treatment Not on file documented as of this encounter Visit Diagnoses Not on filedocumented in this encounter Additional Health Concerns Infection Onset Date Last Indicated Resolved Time COVID-19 Rule Out 03/31/2021 03/31/2021 03/31/2021 11:37 PM RADIATION MONITOR COVID-19 Confirmed 03/31/2021 03/31/2021 12:34 AM RADIATION MONITOR documented as of this encounter Care Teams Senior Program Planner Relationship Specialty Start Date End Date Supriya Hay PA [address] [place] [address] PCP - General PHYSICIAN STRATEGIC ACCOUNT DIRECTOR 02/25/21 documented as of this encounter
--- OUTSIDE RECORDS SUMMARY | 2024-04-01 05:49 | XMS_ITS | Encounter Summary ---
Author Organization [facility] Address [address] [place] [address]. [place], [place] [id number] [place] [address] Care Team Providers Care Manager Purchasing Name Role Phone Supriya Hay Primary Care Provider [phone] Encounter Details Date Type Department Care Team (Late st Contact Info) Description 04/11/2021 Patient Self-Triage [facility] [address] [place] [address] [facility], [facility] Provider Social History Tobacco Use Types Packs/Day Years [...] COVID-19? No / Unsure 03/30/2021 8:14 PM AIRCRAFT MECHANIC documented as of this encounter Plan of Treatment Not on file documented as of this encounter Visit Diagnoses Not on filedocumented in this encounter Additional Health Concerns Infection Onset Date Last Indicated Resolved Time COVID-19 Confirmed 03/31/2021 03/31/2021 12:34 AM AIRCRAFT MECHANIC documented as of this encounter Care Teams Manager Purchasing Relationship Specialty Start Date End Date Supriya Hay PA [address] [place] [address] PCP - General PHYSICIAN GRINDER [employer]ANT 02/25/21 documented as of this encounter
--- OUTSIDE RECORDS SUMMARY | 2024-04-01 05:49 | XMS_ITS | Encounter Summary ---
Author Organization [facility] Address [address] [place] [address]. [place] [address] [place] [address] Care Team Providers Care Clicker Operator Name Role Phone Supriya Hay Primary Care Provider [phone] Reason for Visit * Auth/Cert Specialty Diagnoses / Procedures Referred By Melissa swanson Referred To Contact Diagnoses chronic constipation Procedures COLONOSCOPY Referral ID Status Reason Start Date Expiration Date Visits Re quested Visits Authorized [id number] 1 1 Encounter Details Date Type Department Care Team (Late st Contact Info) Description 02/25/2021 1:19 PM CLAMP OPERATOR Anesthesia Event [facility] [place] [address] Helio Everett MD [facility] [id number] [place] [address] [phone] (Work) Anesthesia Record Procedure Summary Procedure Name Responsible Anesthesiologist Anesthesia Start Time Anesthesia Stop Time COLONOSCOPY Helio Everett MD 02/25/21 1319 10/09 1329 Events Date Time Event Comment 02/25/2021 1201 1259 AN CVICU NURSE Prepped 1307 An Start Data 1309 Nasal Cannula Applied 1319 An Start Patient ID and consent checked and patient reassessed. 1323 An Induction The patient was reevaluated immediately before moderate or deep sedation use and before anesthesia induction. 1324 Anesthesia Ready 1328 An Emergence 1329 Nasal Cannula Removed 1329 an stop data 1329 Post Anesthetic Care Handoff I completed my handoff to the receiving nurse during which we: 1. Identified the patient 2. Identified the responsible provider 3. Reviewed the pertinent medical history 4. Discussed the surgical course 5. Reviewed intra-op anesthesia management and issues during anesthesia 6. Set expectations for post-procedure period 7. Allowed opportunity for questions and acknowledgement of understanding. 1329 An Stop Meds Name Total lidocaine (PF) (XYLOCAINE) 2% injection 50 mg propofol (DIPRIVAN) 200 mg/20 mL injecti on 70 mg lactated ringers infusion 300 mL * Agents Name O2 N2O Air Ancillary O2 * Blood No blood administrations on file. Lines, Drains, and Airways Type Details Placement Removal Peripheral IV Placement Date: 10/09; Placement Time: 1157; Placed Outside of This Facility?: No; Size: 22 G; Orientation: Left; Location: Hand; Site Prep: Chlorhexidine; Local Anesthetic: None; Inserted By: Melanie Almonte; Insertion attempts: 2; Ultrasound-guided Placement?: No; Patient Tolerance: Tolerated well; Removal Date: 02/25/21; Removal Time: 1439; Removal Reason: Patient Discharged 02/25/21 1157 by Eli Hayes RN 02/25/21 1439 by Deyanira Mccullough RN documented in this encounter Social History [...] COVID-19? No / Unsure 02/24/2021 1:47 PM CLAMP OPERATOR documented as of this encounter OR Notes * Anesthesia Postprocedure Evaluation - Helio Everett MD - 02/25/2021 2:24 PM CST Anesthesia Post-op Note Aziza Lockhart Procedure(s): COLONOSCOPY (N/A ) Anesthesia type: general Vitals: 02/25/21 1355 BP: 121/72 Vitals: 02/25/21 1355 Pulse: 70 Vitals: 02/25/21 1355 Resp: 13 Vitals: 02/25/21 1329 Temp: 35.9 ??C Vitals: 02/25/21 1355 SpO2: 99% Patient Location: Phase II/Outpatient Level of Consciousness: awake and oriented Pain Management: adequate analgesia Airway Patency: patent Respiratory Status: acceptable, spontaneous ventilation, nonlabored ventilation and room air Cardiovascular Status: acceptable Post-Op Nausea: none Postoperative Hydration: euvolemic Comments: Nausea treated with IV ondansetron. No anesthetic related complaints are voiced No complications documented. P OPERATOR * Anesthesia Postprocedure Evaluation - Helio Everett MD - 02/25/2021 1:33 PM CST Anesthesia Post-op Note Aziza Lockhart Procedure(s): COLONOSCOPY (N/A ) Anesthesia type: general Vitals: 02/25/21 1329 BP: 95/53 Vitals: 02/25/21 1329 Pulse: 81 Vitals: 02/25/21 1329 Resp: 17 Vitals: 02/25/21 1329 Temp: 35.9 ??C Vitals: 02/25/21 1329 SpO2: 100% Patient Location: Other (Endoscopy Suite) Level of Consciousness: awake, alert and oriented Pain Management: adequate analgesia Airway Patency: patent Respiratory Status: spontaneous ventilation, nonlabored ventilation and room air Cardiovascular Status: hemodynamically stable Post-Op Nausea: none Postoperative Hydration: euvolemic No complications documented. P OPERATOR * Anesthesia Preprocedure Evaluation - Helio Everett MD - 02/25/2021 11:50 AM CST Anesthesia ROS/MED History Reviewed: Patient summary , Family history anesthesia, Anesthesia history , Medications , Unchecked boxes arenot applicable Pre-Anesthetic State: alert, awake and responds appropriately no history of anesthetic complications (Negative MH, FH) Pulmonary (-) pneumonia, recent URI, sleep apnea, asthma, smoker Cardiovascular neg cardio ROS Neuro/Psych neg neuro/psych ROS (-) no substance use GI/Hepatic/Renal (-) GERD Comments: Pre-op diagnosis: chronic constipation Endo/Other (+) obese (-) diabetes, hypothyroidism, arthritis, blood dyscrasia GENERAL COMMENTS Past Surgical History: No date: [...] Cardiovascular Rhythm: regular Rate: normal Other findings: Blood pressure 134/79, pulse 82, temperature 36.6 ??C, temperature source Temporal,resp. rate 19, height 5' 2 (1.575 m), weight 83 kg (183 lb), SpO2 100 %. No results for input(s): WBC, RBC, HGB, [...] patient of whom consent was obtained. . P OPERATOR documented in this encounter Plan of Treatment Not on file documented as of this encounter Visit Diagnoses Not on filedocumented in this encounter Administered Medications Inactive Administered Medications - up to 3 most recent administrations Medication Order MAR Action Action Date Dose Rate Site lactated ringers infusion at 10 mL/hr, Intravenous, Continuous, Starting on Wed02/25/21 at 1215, Until Wed02/25/21 at 1659, Infuse at TKO rate, Pre-Op New Bag 02/25/2021 1:04 PM CLAMP OPERATOR lidocaine (PF) (XYLOCAINE) 2 % injection Intravenous, PRN, Starting on Wed02/25/21 at 1323, Until Wed02/25/21 at 1329, Anesthesia Intra-Op Given 02/25/2021 1:23 PM CLAMP OPERATOR 50 mg propofol (DIPRIVAN) IV bolus Intravenous, PRN, Starting on Wed02/25/21 at 1323, Until Wed02/25/21 at 1329, Anesthesia Intra-Op Given 02/25/2021 1:24 PM CLAMP OPERATOR 20 mg Given 02/25/2021 1:23 PM CLAMP OPERATOR 50 mg documented in this encounter Care Teams Clicker Operator Relationship Specialty Start Date End Date Supriya Hay PA [address] [place] [address] PCP - General PHYSICIAN HOSPICE/HOME HEALTH AIDE 02/25/21 documented as of this encounter
--- OUTSIDE RECORDS SUMMARY | 2024-04-01 05:50 | XMS_ITS | Encounter Summary ---
Author Organization [facility] Address [address] [place] [address]. [place] [address] [place] [address] Care Team Providers Care Livestock Laborer Name Role Phone Supriya Hay Primary Care Provider [phone] Reason for Visit * Auth/Cert Specialty Diagnoses / Procedures Referred By Melissa swanson Referred To Contact Diagnoses chronic constipation Procedures COLONOSCOPY Referral ID Status Reason Start Date Expiration Date Visits Re quested Visits Authorized [id number] 1 1 Encounter Details Date Type Department Care Team (Latest Contact Info) Description 02/25/2021 9:55 AM NATURAL RESOURCES INSTRUCTOR - 02/25/2021 2:[address] [facility] Hospital Encounter [facility] [place] [address] Dylan Naidu T, DO [address] [facility] [address] [place] [address] Discharge Disposition: Home or Self Care (Routine [...] COVID-19? No / Unsure 02/24/2021 1:47 PM NATURAL RESOURCES INSTRUCTOR documented as of this encounter Last Filed Vital Signs Vital Sign Reading Time Taken Comments Blood Pressure 121/72 02/25/2021 1:55 PM NATURAL RESOURCES INSTRUCTOR Pulse 70 02/25/2021 1:55 PM NATURAL RESOURCES INSTRUCTOR Temperature 35.9 ??C (96.7 ??F) 02/25/2021 1:29 PM CS T Respiratory Rate 13 02/25/2021 1:55 PM NATURAL RESOURCES INSTRUCTOR Oxygen Saturation 99% 02/25/2021 1:55 PM NATURAL RESOURCES INSTRUCTOR Inhaled Oxygen Concentration - - Weight 83 kg (183 lb) 02/24/2021 1:47 PM NATURAL RESOURCES INSTRUCTOR Height 157.5 cm (5' 2 ) 02/24/2021 1:47 PM NATURAL RESOURCES INSTRUCTOR Body Mass Index 33.47 02/24/2021 1:47 PM NATURAL RESOURCES INSTRUCTOR documented in this encounter Discharge Instructions * Discharge Instructions* Deyanira Mccullough RN - 02/25/2021 1:47 PM NATURAL RESOURCES INSTRUCTOR Recommendations: ?? Fiber. MiraLAX twice daily for constipation. Patient may benefit from, Trulance or Motegrity. Repeat colonoscopy with 2-day preparation. RAL RESOURCES INSTRUCTOR * Attachments The following attachments cannot be sent through Care Everywhere. * Colonoscopy Discharge Instructions (Vietnamese) documented in this encounter Medications at Time [...] VOMITING 06/21/2020 documented as of this encounter Progress Notes * Deyanira Mccullough RN - 02/25/2021 2:05 PM CST Patient complaining of some nausea but no emesis noted 1418 Zofran given 1450 Patient still not having any emesis and states nausea is a little better.. She also states shefeels ready to go home RAL RESOURCES INSTRUCTOR documented in this encounter H&P Notes * Dylan Naidu, DO - 02/25/2021 11:43 AM CST This very pleasant patient was seen at the request of the primary physician and with the patient's permission. The patient was examined the chart was reviewed. Reason for encounter: Colonoscopy. Impression/problem: A very pleasant lady with chronic constipation. He is here for colonoscopy to assess for lung inflammatory neoplastic disease. GERD controlled with medication. Recommendations: Colonoscopy. History: Very pleasant gentleman was having symptoms secondary to her reflux disease. He had vomiting and heartburn that resolved with omeprazole. Patient does have chronic constipation. She is improved with MiraLAX. She is here for colonoscopy. Allergies: Allergies Allergen Reactions ??? Clindamycin Shortness [...] by mouth 4 (four) times daily. ??? metoclopramide 10 MG tablet ??? ondansetron 4 MG tablet TAKE 1 TABLET BY MOUTH EVERY 6 HOURS NEEDED FOR NAUSEA OR VOMITING ??? levonorgestrel 20 MCG/24HR IUD 1 each by Intrauterine route once. PMH: Past Medical History: Diagnosis Date ??? Chronic idiopathic constipation PSH: Past Surgical History: Procedure Laterality Date ??? ADENOIDECTOMY ??? CHOLECYSTECTOMY ??? HERNIA REPAIR ??? OTHER PROCEDURE uterine [...] to contact me. Dylan Naidu DO RAL RESOURCES INSTRUCTOR documented in this encounter OR Notes * Op Note - Dylan Naidu DO - 02/25/2021 1:32 PM CST Colonoscopy History/Preop:. Very pleasant lady with chronic constipation. She has a diagnosis of chronic idiopathic constipation. Post Op: Full of stool. Procedure terminated transverse colon. Procedure Performed: Colonoscopy to approximately the mid to distal transverse colon. Findings: Colonoscopy to the mid to distal transverse colon revealed a large amount of solid stool. Further advancement was colonoscope was unachievable. On withdrawal of the colonoscope in all mucosal abnormalities were appreciated. Solid stool was noted in the descending, sigmoid and rectum. Recommendations: Fiber. MiraLAX twice daily for constipation. Patient may benefit from, Trulance or Motegrity. Repeat colonoscopy with 2-day preparation. Anes: MAC Complications: No immediate. Quality Indicators: EBL: < 5ml. Prep: Poor Extent of insertion: Mid transverse colon? Procedure: The benefits, risks, complications and alternatives were explained in detail to the patient/power of math teacher. These were understood, assumed and written consent [...] the procedure well. Dylan Naidu DO RAL RESOURCES INSTRUCTOR documented in this encounter Plan of Treatment Not on file documented as of this encounter Procedures Procedure Name Priority Date/Time Associated Diagnosis Comments COLONOSCOPY Routine 02/25/2021 2:17 PM NATURAL RESOURCES INSTRUCTOR COLONOSCOPY 02/25/2021 1:07 PM NATURAL RESOURCES INSTRUCTOR chronic constipation PROCEDURE GENERIC 02/25/2021 1:0 6 PM NATURAL RESOURCES INSTRUCTOR RESPIRATORY PCR PANEL 2 STAT 02/25/2021 10:19 AM NATURAL RESOURCES INSTRUCTOR documented in this encounter Results * PROCEDURE GENERIC (02/25/2021 1:06 PM NATURAL RESOURCES INSTRUCTOR) Narrative 02/25/2021 1:06 PM NATURAL RESOURCES INSTRUCTOR Ordered by an unspecified provider. us Documents Scanned [facility] Final Result * RESPIRATORY PCR PANEL 2 (02/25/2021 10:19 AM NATURAL RESOURCES INSTRUCTOR) ADENOVIRUS PCR (RESP) NOT DETECTED NOT DETECTED 02/25/2021 11:29 AM NATURAL RESOURCES INSTRUCTOR [facility] CORONAVIRUS 229E PCR (RESP) NOT DETECTED NOT DETECTED 02/25/2021 11:29 AM [facility] CORONAVIRUS HKU1 PCR (RESP) NOT DETECTED NOT DETECTED 02/25/2021 11:29 AM [facility] CORONAVIRUS NL63 PCR (RESP) NOT DETECTED NOT DETECTED 02/25/2021 11:29 AM [facility] CORONAVIRUS OC43 PCR (RESP) NOT DETECTED NOT DETECTED 02/25/2021 11:29 AM [facility] METAPNEUMOVIRUS PCR (RESP) NOT DETECTED NOT DETECTED 02/25/2021 11:29 AM [facility] RHINOVIRUS/ENTEROV IRUS PCR (RESP) NOT DETECTED NOT DETECTED 02/25/2021 11:29 AM [facility] INFLUENZA A PCR (RESP) NOT DETECTED NOT DETECTED 02/25/2021 11:29 AM [facility] INFLUENZA B PCR (RESP) NOT DETECTED NOT DETECTED 02/25/2021 11:29 AM [facility] PARAINFLUENZA 1 PCR (RESP) NOT DETECTED NOT DETECTED 02/25/2021 11:29 AM [facility] PARAINFLUENZA 2 PCR (RESP) NOT DETECTED NOT DETECTED 02/25/2021 11:29 AM [facility] PARAINFLUENZA 3 PCR (RESP) NOT DETECTED NOT DETECTED 02/25/2021 11:29 AM [facility] PARAINFLUENZA 4 PCR (RESP) NOT DETECTED NOT DETECTED 02/25/2021 11:29 AM [facility] RSV PCR (RESP) NOT DETECTED NOT DETECTED 02/25/2021 11:29 AM [facility] B PARAPERTUSIS PCR (RESP) NOT DETECTED NOT DETECTED 02/25/2021 11:29 AM [facility] BORDETELLA PERTUSSIS PCR (RESP) NOT DETECTED NOT DETECTED 02/25/2021 11:29 AM [facility] CHLAMYDOPHILA PNEUMONIAE PCR (RESP) NOT DETECTED NOT DETECTED 02/25/2021 11:29 AM [facility] MYCOPLASMA PNEUMONIAE PCR (RESP) NOT DETECTED NOT DETECTED 02/25/2021 11:29 AM [facility] CORONAVIRUS SARS COV 2 PCR (RESP) NOT DETECTED NOT DETECTED 02/25/2021 11:29 AM [facility] FIRST TEST NO 02/25/2021 10:20 AM [facility] EMPLOYED IN HEALTHCARE NO 02/25/2021 10:20 AM [facility] SYMPTOMATIC DEFINED BY CDC UNKNOWN 02/25/2021 10:20 AM [facility] HOSPITALIZATION STATUS UNKNOWN 02/25/2021 10:20 AM [facility] PATIENT IN ICU UNKNOWN 02/25/2021 10:27 AM [facility] RESIDENT OF [facility] NO 02/25/2021 10:20 AM [facility] UNKNOWN 02/25/2021 10:20 AM [facility] NASOPHARYNGEAL SWAB / Unknown 02/25/2021 10:19 AM NATURAL RESOURCES INSTRUCTOR us Dylan Naidu DO MICROBIOLOGY - GENERAL ORDERABL ES Final Result [facility] [address] [place] [address], [place] [phone] documented in this encounter Visit Diagnoses Not on filedocumented in this encounter Administered Medications Inactive Administered Medications - up to 3 most recent administrations Medication Order MAR Action Action Date Dose Rate Site lactated ringers infusion at 10 mL/hr, Intravenous, Continuous, Starting on Wed02/25/21 at 1215, Until Tu02/25/21 at 1659, Infuse at TKO rate, Pre-Op New Bag 02/25/2021 1:04 PM NATURAL RESOURCES INSTRUCTOR lactated ringers infusion at 10 mL/hr, Intravenous, Continuous, Starting on 02/25/21 at 1445, Until 02/25/21 at 1659, Not to be given to patients with end stage renal disease or dialysis. Infuse at TKO rate, Pre-Op ondansetron (ZOFRAN) injection 4 mg 4 mg, Intravenous, Once as needed, Nausea, Vomiting, 1 dose, Starting on e 02/25/21 at 1416, Until 02/25/21 at 1418, Administer slowly over 3-4 minutes. If more than one antiemetic is ordered, use in this order: ondansetron, diphenhydramine, metoclopramide, haloperidol, promethazine. If nausea / vomiting still not controlled, move to next ordered medication., PACU Given 02/25/2021 2:18 PM NATURAL RESOURCES INSTRUCTOR 4 mg documented in this encounter Active and Recently Administered Medications Times are shown in NATURAL RESOURCES INSTRUCTOR. Continuous Medication Order 02/23/2021 02/24/2021 02/25/2021 lactated ringers infusion at 10 mL/hr, Intravenous, Continuous, Starting on e 02/25/21 at 1215, Until Wed02/25/21 at 1659, Infuse at TKO rate, Pre-Op 1304 (New Bag - Prov ider: Elena Raymundo CRNA)1329 (Anesthesia Volume Adjustment - Provider: Elena Raymundo CRNA) lactated ringers infusion at 10 mL/hr, Intravenous, Continuous, Starting on 02/25/21 at 1445, Until Wed02/25/21 at 1659, Not to be given to patients with end stage renal disease or dialysis. Infuse at TKO rate, Pre-Op 1445 (Canceled Entry - Provider: Automatic Discharge Provider - Comment: Automatically canceled at discontinue of medication order) PRN Medication Order 02/23/2021 02/24/2021 02/25/2021 ondansetron (ZOFRAN) injection 4 mg (COMPLETED) 4 mg, Intravenous, Once as needed, Nausea, Vomiting, 1 dose, Starting on Wed02/25/21 at 1416, Until Wed02/25/21 at 1418, Administer slowly over 3-4 minutes. If more than one antiemetic is ordered, use in this order: ondansetron, diphenhydramine, metoclopramide, haloperidol, promethazine. If nausea / vomiting still not controlled, move to next ordered medication., PACU 1418 (Given - Provid er: Deyanira Mccullough RN) documented in this encounter Additional Health Concerns Infection Onset Date Last Indicated Resolved Time COVID-19 Rule Out 02/25/2021 02/25/2021 02/25/2021 11:29 AM NATURAL RESOURCES INSTRUCTOR documented as of this encounter Care Teams Livestock Laborer Relationship Specialty Start Date End Date Supriya Hay PA [address] [place] [address] PCP - General PHYSICIAN HEAD CONTROL CLERK 02/25/21 documented as of this encounter
--- OUTSIDE RECORDS SUMMARY | 2024-04-01 05:50 | XMS_ITS | Encounter Summary ---
Author Organization [facility] Address [address] [place] [address]. [place], [place] [address] [place] [address] Care Team Providers Care Java Web Application Developer Name Role Phone Unavailable Primary Care Provider Unavailabl e Encounter Details Date Type Department Care Team (Late st Contact Info) Description 09/25/1998 [place] [address] , Generic Conversion, Social History Tobacco Use Types Packs/Day Years Used Date Smoking Tobacco: Never Assessed Comments Unknown Sex and Gender Information Value Date Recorded Sex Assigned at Not on file Legal Sex Female 7:11 PM CDT Gender Identity Not on file Sexual Orientation Not on file documented as of this encounter Plan of Treatment Not on file documented as of this encounter Visit Diagnoses Not on filedocumented in this encounter
--- OUTSIDE RECORDS SUMMARY | 2024-04-01 05:50 | XMS_ITS | Encounter Summary ---
Author Organization [facility] Address [address] [place] [address]. [place], [place] [address] [place] [address] Care Team Providers Care Paint Spraying Machine Operator Helper Name Role Phone Unavailable Primary Care Provider Unavailabl e Encounter Details Date Type Department Care Team (Late st Contact Info) Description 05/11/2005 [place] [address] , Generic Conversion, Social History Tobacco Use [...]
--- OUTSIDE RECORDS SUMMARY | 2024-04-01 05:50 | XMS_ITS | Encounter Summary ---
Author Organization [facility] Address [address] [place] [address]. [place], [place] [id number] [place] [address] Care Team Providers Care Automation And Controls Supervisor Name Role Phone Unavailable Primary Care Provider Unavailabl e Encounter Details Date Type Department Care Team (Late st Contact Info) Description 04/20/2001 Emergency [facility] [place] [address] , Kalen Guevara MD Social History Tobacco Use Types Packs/Day Years [...]
--- OUTSIDE RECORDS SUMMARY | 2024-04-01 05:50 | XMS_ITS | Encounter Summary ---
Author Organization [facility] Address [address] [place] [address]. [place], [place] [address] [place] [address] Care Team Providers Care Parking Lot Laborer Name Role Phone Elana Weathers MD Primary Care Provider [phone] Encounter Details Date Type Department Care Team (Late st Contact Info) Description 06/16/2007 Abstract [facility] [address] [place] [address] Percy Arroyo MD [address] [place] [address] Social History Tobacco Use Types Packs/Day Years [...] on filedocumented in this encounter Care Teams Parking Lot Laborer Relationship Specialty Start Date End Date Elana Weathers MD [address] [place] [address] PCP - General FAMILY PRACTICE 11/12/20 02/24/21 documented as of this encounter
--- OUTSIDE RECORDS SUMMARY | 2024-04-01 05:50 | XMS_ITS | Encounter Summary ---
Author Organization [facility] Address [address] [place] [address]. [place] [address] [place] [address] Care Team Providers Care Eligibility Analyst Name Role Phone Elana Weathers MD Primary Care Provider [phone] Reason for Visit * Auth/Cert Specialty Diagnoses / Procedures Referred By Melissa swanson Referred To Contact Diagnoses EARLY SATIETY,NAUSEA Procedures EGD Referral ID Status Reason Start Date Expiration Date Visits Re quested Visits Authorized [id number] 1 1 Encounter Details Date Type Department Care Team (Late st Contact Info) Description 12/18/2020 3:04 PM CDT Anesthesia Event [facility] [address] Helio Everett MD [facility] [id number] [place] [address] [phone] (Work) Luis Coe MD [address] [place] [address] [id number] [place] [address] Anesthesia Record Procedure Summary Procedure Name Responsible Anesthesiologist Anesthesia Start Time Anesthesia Stop Time EGD WITH ANTRAL BIOPSIES VIA LARGE COLD FORCEPS Helio Everett MD 12/18/20 1504 12/18/20 1519 Events Date Time Event Comment 12/18/2020 1227 AN Anesthesia Prepped 1418 AN STONE RIGGER Prepped 1504 An Start Data 1504 Nasal Cannula Applied 1504 An Start Patient ID and consent checked and patient reassessed. 1507 An Induction The patient was reevaluated immediately before moderate or deep sedation use and before anesthesia induction. 1507 Anesthesia Ready 1513 An Emergence 1518 Nasal Cannula Removed 1518 an stop data 1518 Post Anesthetic Care Handoff I completed my handoff to the receiving nurse during which we: 1. Identified the patient 2. Identified the responsible provider 3. Reviewed the pertinent medical history 4. Discussed the surgical course 5. Reviewed intra-op anesthesia management and issues during anesthesia 6. Set expectations for post-procedure period 7. Allowed opportunity for questions and acknowledgement of understanding. 1519 An Stop 12/20/2020 1138 Meds Name Total lidocaine (PF) (XYLOCAINE) 2% injection 50 mg propofol (DIPRIVAN) 200 mg/20 mL injecti on 120 mg lactated ringers infusion 400 mL * Agents Name O2 N2O Air Ancillary O2 * Blood No blood administrations on file. Lines, Drains, and Airways Type Details Placement Removal Peripheral IV Placement Date: 11/21 12/10; Placement Time: 1457; Placed Outside of This Facility?: No; Size: 20 G; Orientation: Right; Location: Antecubital; Site Prep: Chlorhexidine; Local Anesthetic: None; Inserted By: PEPITO Anderson; Insertion attempts: 1; Ultrasound-guided Placement?: No; Patient Tolerance: Tolerated well; Removal Date: 12/18/20; Removal Time: 1535; Removal Reason: Patient Discharged 12/18/20 1457 by Aziza Cedeno RN 12/18/20 1535 by Stephenie Us RN documented in this encounter Social History [...] have Coronavirus / COVID-19? No / Unsure 12/18/2020 11:27 AM CDT documented as of this encounter OR Notes * Anesthesia Postprocedure Evaluation - Andarde Santo MD - 12/18/2020 4:37 PM CDT Anesthesia Post-op Note Aziza Swanson Richy Procedure(s): EGD WITH ANTRAL BIOPSIES VIA LARGE COLD FORCEPS (N/A ) Anesthesia type: No value filed. Vitals: 12/18/20 1534 BP: (!) 152/85 Vitals: 12/18/20 1534 Pulse: 69 Vitals: 12/18/20 1534 Resp: 16 Vitals: 12/18/20 1515 Temp: 36.7 ??C Vitals: 12/18/20 1534 SpO2: 99% Patient Location: Phase II/Outpatient Level of Consciousness: awake, alert and oriented Pain Management: adequate analgesia Airway Patency: patent Respiratory Status: acceptable Cardiovascular Status: acceptable Post-Op Nausea: none Postoperative Hydration: euvolemic No complications documented. * Anesthesia Preprocedure Evaluation - Andrade Santo MD - 12/18/2020 12:27 PM CDT Anesthesia ROS/MED History Reviewed: Patient summary , Nursing notes , ECG, Family history anesthesia, Anesthesia history , Medications , Labs , Images/Studies , Unchecked boxes are not applicable Pre-Anesthetic State: alert, awake and responds appropriately no history of anesthetic complications (Negative MH, FH ) Pulmonary (-) pneumonia, recent URI, sleep apnea, asthma, smoker Cardiovascular Exercise tolerance:good (+) hyperlipidemia(-) hypertension, Valvular problems/Murmurs, angina, arrhythmia Neuro/Psych neg neuro/psych ROS (-) no substance use GI/Hepatic/Renal (-) GERD, liver disease, renal disease Comments: Pre-op diagnosis: EARLY SATIETY,NAUSEA Endo/Other (+) blood dyscrasia, (Anemia) (-) diabetes, hypothyroidism, hyperthyroidism GENERAL COMMENTS Past Medical History: No date: Chronic idiopathic constipation Past Surgical History: No date: ADENOIDECTOMY No date: CHOLECYSTECTOMY No date: HERNIA REPAIR No date: OTHER PROCEDURE Comment: uterine repair No date: TONSILLECTOMY Physical Evaluation Airway Mallampati: II TM Distance: >3 FB Neck ROM: normal Dental Comment: Braces upper and lower Teeth good repair Pulmonary Pulmonary exam normal Breath sounds clear to auscultation Cardiovascular Rhythm: regular Rate: normal Cardiovascular exam normal Other findings: Height 5' 1 (1.549 m), weight 81.6 kg (180 lb). No results for input(s): WBC, RBC, HGB, HCT, PLT, NA, K, CL, CO2, AGAP, BUN, CR, BUNCREATININ, GFRNON, GFR, GLU, CA in the last 72 hours. Anesthesia Plan ASA 2 Intravenous Induction Anesthesia type: general Plan for Airway: nasal cannula/simple face mask Plan for Post-op Pain Plan: IV analgesics, oral pain medication and as per surgeon Discussed potential risks of TIVA/General Anesthesia including but not limited to corneal abrasion,visual impairment or visual loss, mouth injury, dental damage, sore throat, hoarseness, esophageal injury, awareness under anesthesia, nerve injury due to positioning, aspiration, pneumonia, stroke, cardiac event, adverse drug reactions and . Informed Consent Anesthetic plan and risks discussed with patient of whom. . * Anesthesia Postprocedure Evaluation - Andrade Santo MD - 12/11/2020 3:30 PM CDT Anesthesia Post-op Note Aziza Lockhart Procedure(s): EGD WITH ANTRAL BIOPSIES VIA LARGE COLD FORCEPS (N/A ) Anesthesia type: No value filed. Vitals: 12/18/20 1534 BP: (!) 152/85 Vitals: 12/18/20 1534 Pulse: 69 Vitals: 12/18/20 1534 Resp: 16 Vitals: 12/18/20 1515 Temp: 36.7 ??C Vitals: 12/18/20 1534 SpO2: 99% Patient Location: PACU Level of Consciousness: awake, alert and oriented Pain Management: adequate analgesia Airway Patency: patent Respiratory Status: acceptable Cardiovascular Status: acceptable Post-Op Nausea: none Postoperative Hydration: euvolemic No complications documented. documented in this encounter Plan of Treatment Not on file documented as of this encounter Visit Diagnoses Not on filedocumented in this encounter Administered Medications Inactive Administered Medications - up to 3 most recent administrations Medication Order MAR Action Action Date Dose Rate Site lactated ringers infusion at 10 mL/hr, Intravenous, Continuous, Starting on Wed12/18/20 at 1245, Until Wed12/18/20 at 1844, Infuse at TKO rate, Pre-Op New Bag 12/18/2020 3:04 PM CDT lidocaine (PF) (XYLOCAINE) 2 % injection Intravenous, PRN, Starting on Wed12/18/20 at 1507, Until Wed12/18/20 at 1519, Anesthesia Intra-Op Given 12/18/2020 3:07 PM CDT 50 mg propofol (DIPRIVAN) IV bolus Intravenous, PRN, Starting on Wed12/18/20 at 1507, Until Wed12/18/20 at 1519, Anesthesia Intra-Op Given 12/18/2020 3:08 PM CDT 30 mg Given 12/18/2020 3:07 PM CDT 90 mg documented in this encounter Care Teams Eligibility Analyst Relationship Specialty Start Date End Date Elana Weathers MD [address] [place] [address] PCP - General FAMILY PRACTICE 11/12/20 02/24/21 documented as of this encounter
--- OUTSIDE RECORDS SUMMARY | 2024-04-01 05:50 | XMS_ITS | Encounter Summary ---
Author Organization [facility] Address [address] [place] [address]. [place], [place] [address] [place] [address] Care Team Providers Care Dormitory Maid Name Role Phone Elana Weathers MD Primary Care Provider [phone] Encounter Details Date Type Department Care Team (Late st Contact Info) Description 05/05/1994 Abstract [facility] [address] [place] [address] , Generic Conversion, Social History Tobacco Use [...] on filedocumented in this encounter Care Teams Dormitory Maid Relationship Specialty Start Date End Date Elana Weathers MD [address] [place] [address] PCP - General FAMILY PRACTICE 11/12/20 02/24/21 documented as of this encounter
--- OUTSIDE RECORDS SUMMARY | 2024-04-01 05:50 | XMS_ITS | Encounter Summary ---
Author Organization [facility] Address [address] [place] [address]. [place], [place] [address] [place] [address] Care Team Providers Care Statistical Methods Professor Name Role Phone Unavailable Primary Care Provider Unavailabl e Encounter Details Date Type Department Care Team (Late st Contact Info) Description 07/27/1994 [place] [address] , Generic Conversion, Social History Tobacco Use [...]
--- OUTSIDE RECORDS SUMMARY | 2024-04-01 05:50 | XMS_ITS | Encounter Summary ---
Author Organization [facility] Address [address] [place] [address]. [place], [place] [address] [place] [address] Care Team Providers Care Paraffin Plant Operator Name Role Phone Unavailable Primary Care Provider Unavailabl e Encounter Details Date Type Department Care Team (Late st Contact Info) Description 09/08/2005 [place] [address] , Generic Conversion, Social History Tobacco Use [...]
--- OUTSIDE RECORDS SUMMARY | 2024-04-01 05:50 | XMS_ITS | Encounter Summary ---
Author Organization [facility] Address [address] [place] [address]. [place], [place] [address] [place] [address] Care Team Providers Care Inbound Ingredient Logistics Specialist Name Role Phone Elana Weathers MD Primary Care Provider [phone] Encounter Details Date Type Department Care Team (Late st Contact Info) Description 11/08/2009 Abstract [facility] Emergency Services [address] [place] [address] Jamarcus Almazan S, DO [address] [place] [address] Social History Tobacco Use Types Packs/Day Years [...] on filedocumented in this encounter Care Teams Inbound Ingredient Logistics Specialist Relationship Specialty Start Date End Date Elana Weathers MD [address] [place] [address] PCP - General FAMILY PRACTICE 11/12/20 02/24/21 documented as of this encounter
--- OUTSIDE RECORDS SUMMARY | 2024-04-01 05:50 | XMS_ITS | Encounter Summary ---
Author Organization [facility] Address [address] [place] [address]. [place], [place] [address] [place] [address] Care Team Providers Care Lead Custodian Name Role Phone Elana Weathers MD Primary Care Provider [phone] Encounter Details Date Type Department Care Team (Late st Contact Info) Description 07/24/2006 Abstract [facility] Emergency Services [address] [place] [address] Helio Sprague, DO [address] [place] [address] Social History Tobacco Use Types Packs/Day Years [...] on filedocumented in this encounter Care Teams Lead Custodian Relationship Specialty Start Date End Date Elana Weathers MD [address] [place] [address] PCP - General FAMILY PRACTICE 11/12/20 02/24/21 documented as of this encounter
--- OUTSIDE RECORDS SUMMARY | 2024-04-01 05:50 | XMS_ITS | Encounter Summary ---
Author Organization [facility] Address [address] [place] [address]. [place], [place] [address] [place] [address] Care Team Providers Care Armored Car Guard Name Role Phone Elana Weathers MD Primary Care Provider [phone] Encounter Details Date Type Department Care Team (Late st Contact Info) Description 07/19/1995 Abstract [facility] Emergency Services [facility] [place] [address] , Kalen Guevara MD Social History Tobacco [...] on filedocumented in this encounter Care Teams Armored Car Guard Relationship Specialty Start Date End Date Elana Weathers MD [address] [place] [address] PCP - General FAMILY PRACTICE 11/12/20 02/24/21 documented as of this encounter
--- OUTSIDE RECORDS SUMMARY | 2024-04-01 05:50 | XMS_ITS | Encounter Summary ---
Author Organization [facility] Address [address] [place] [address]. [place], [place] [address] [place] [address] Care Team Providers Care Clinical Operations Specialist Name Role Phone Unavailable Primary Care Provider Unavailabl e Encounter Details Date Type Department Care Team (Late st Contact Info) Description 08/26/2005 [place] [address] , Generic Conversion, Social History Tobacco Use [...]
--- OUTSIDE RECORDS SUMMARY | 2024-04-01 05:50 | XMS_ITS | Encounter Summary ---
Author Organization [facility] Address [address] [place] [address]. [place] [address] [place] [address] Care Team Providers Care Property Insurance Agent Name Role Phone Elana Weathers MD Primary Care Provider [phone] Encounter Details Date Type Department Care Team (Late st Contact Info) Description 04/24/1994 Abstract [facility] [address] [facility] [place] [address] Jake Palacio MD [address] [place] [address] Social History Tobacco Use Types Packs/Day Years [...] on filedocumented in this encounter Care Teams Property Insurance Agent Relationship Specialty Start Date End Date Elana Weathers MD [address] [place] [address] PCP - General FAMILY PRACTICE 11/12/20 02/24/21 documented as of this encounter
--- OUTSIDE RECORDS SUMMARY | 2024-04-01 05:50 | XMS_ITS | Encounter Summary ---
Author Organization [facility] Address [address] [place] [address]. [place], [place] [address] [place] [address] Care Team Providers Care Press Operator Assistant Name Role Phone Unavailable Primary Care Provider Unavailabl e Encounter Details Date Type Department Care Team (Late st Contact Info) Description 07/25/2001 [place] [address] , Generic Conversion, Social History Tobacco Use [...]
--- OUTSIDE RECORDS SUMMARY | 2024-04-01 05:50 | XMS_ITS | Encounter Summary ---
Author Organization [facility] Address [address] [place] [address]. [place], [place] [address] [place] [address] Care Team Providers Care Motorcycle Delivery Driver Name Role Phone Unavailable Primary Care Provider Unavailabl e Encounter Details Date Type Department Care Team (Late st Contact Info) Description 10/15/2005 [place] [address] , Generic Conversion, Social History Tobacco Use [...]
--- OUTSIDE RECORDS SUMMARY | 2024-04-01 05:50 | XMS_ITS | Encounter Summary ---
Author Organization [facility] Address [address] [place] [address]. [place], [place] [address] [place] [address] Care Team Providers Care Technology Training Associate Name Role Phone Unavailable Primary Care Provider Unavailabl e Encounter Details Date Type Department Care Team (Late st Contact Info) Description 10/12/2005 Abstract [place] [address] , Kalen Guevara MD Social History Tobacco [...]
--- OUTSIDE RECORDS SUMMARY | 2024-04-01 05:50 | XMS_ITS | Encounter Summary ---
Author Organization [facility] Address [address] [place] [address]. [place], [place] [address] [place] [address] Care Team Providers Care Analog Device Designer Name Role Phone Elana Weathers MD Primary Care Provider [phone] Encounter Details Date Type Department Care Team (Late st Contact Info) Description 07/18/2010 Abstract [facility] Emergency Services [address] [place] [address] Helio Sprague, DO [address] [place] [address] Social History Tobacco Use Types Packs/Day Years [...] on filedocumented in this encounter Care Teams Analog Device Designer Relationship Specialty Start Date End Date Elana Weathers MD [address] [place] [address] PCP - General FAMILY PRACTICE 11/12/20 02/24/21 documented as of this encounter
--- OUTSIDE RECORDS SUMMARY | 2024-04-01 05:50 | XMS_ITS | Encounter Summary ---
Author Organization [facility] Address [address] [place] [address]. [place], [place] [address] [place] [address] Care Team Providers Care Inspector Balance Truing Name Role Phone Unavailable Primary Care Provider Unavailabl e Encounter Details Date Type Department Care Team (Late st Contact Info) Description 12/17/[address] [facility] [address] , Kalen Guevara MD Social History Tobacco [...]
--- OUTSIDE RECORDS SUMMARY | 2024-04-01 05:50 | XMS_ITS | Encounter Summary ---
Author Organization [facility] Address [address] [place] [address]. [place] [address] [place] [address] Care Team Providers Care Regulated Program Manager Name Role Phone Elana Weathers MD Primary Care Provider [phone] Reason for Visit * Auth/Cert Specialty Diagnoses / Procedures Referred By Melissa chatman Referred To Contact Diagnoses EARLY SATIETY,NAUSEA Procedures EGD Referral ID Status Reason Start Date Expiration Date Visits Re quested Visits Authorized [id number] 1 1 Encounter Details Date Type Department Care Team (Late st Contact Info) Description 12/18/2020 12:30 PM CDT - 12/18/2020 1:00 PM CDT Surgery [facility] Endo/[place] [address] Kvng Naidu, [address] [facility] [address] [place] [address] EGD WITH ANTRAL BIOPSIES VIA LARGE COLD FORCEPS Surgery Details Date/Time Status Location OR Service Patient Class Case Class Case Type Trauma Case? 12/18/2020 12:30 PM Posted [facility] 2 [facility] - Elective No Panel 1 Procedure LRB Anes Op Region Wound Class Comments EGD WITH ANTRAL BIOPSIES VIA LARGE COLD FORCEPS N/A General Clean Contaminated ANTRAL BIOPSIES Surgeon Surgeon Role Service Panel Kvng Naidu DO Primary Gastroenterology 1 documented in this [...] AM CDT documented as of this encounter Discharge Instructions * Discharge Instructions* Stephenie Us RN - 12/18/2020 3:29 PM CDT Recommendations: ?? Avoid NSAIDs. Continue omeprazole. Small frequent feedings. Continue omeprazole and Reglan. Follow-up with primary as needed. Colonoscopy regarding chronic constipation. * Attachments The following attachments cannot be sent through Care Everywhere. * Upper GI Endoscopy Discharge Instructions (Turkish) * General Anesthesia Discharge Instructions (Turkish) documented in this encounter Medications at Time of Discharge cyclobenzaprine 10 MG tablet Take 10 mg by mouth 3 (three) times daily as needed. 10/05/2020 dicyclomine 20 MG tablet Take 20 mg by mouth 4 (four) times daily. 06/20/2020 metoclopramide 10 MG tablet 10/23/2020 ondansetron 4 MG tablet TAKE 1 TABLET BY MOUTH EVERY 6 HOURS NEEDED FOR NAUSEA OR VOMITING 06/21/2020 fluconazole 150 MG tablet 12/17/2020 02/24/2021 nitrofurantoin, macrocrystal-mon ohydrate, 100 MG capsule 12/17/2020 02/24/2021 rizatriptan 10 MG tablet 03/01/2020 02/24/2021 documented as of this encounter H&P Notes * Kvng Naidu DO - 12/18/2020 2:53 PM CDT This very pleasant patient was seen at the request of the primary physician and with the patient's permission. The patient was examined the chart was reviewed. Reason for encounter: EGD. Impression/problem: Pleasant lady with nausea, vomiting and early satiety. Been having upper abdominal pain. Underlyingpeptic ulcer disease should be excluded. Recommendations: EGD. History: Very pleasant lady has a history of nausea, vomiting, upper abdominal pain and heartburn. She was placed on omeprazole 40 mg once daily. Her heartburn has improved. She continues have complaints of early satiety and nausea. She is here for endoscopic evaluation. The patient does have history of chronic constipation. Previous colonoscopy was unremarkable. Allergies: Allergies Allergen Reactions ??? Clindamycin Shortness [...] by mouth 4 (four) times daily. ??? fluconazole 150 MG tablet ??? ibuprofen 800 MG tablet Take 800 mg by mouth 3 (three) times daily as needed. FOR PAIN ??? meloxicam 7.5 MG tablet ??? metoclopramide 10 MG tablet ??? nitrofurantoin, macrocrystal-monohydrate, 100 MG capsule ??? ondansetron 4 MG tablet TAKE 1 TABLET BY MOUTH EVERY 6 HOURS NEEDED FOR NAUSEA OR VOMITING ??? rizatriptan 10 MG tablet PMH: Past Medical History: Diagnosis Date ??? Chronic idiopathic constipation PSH: Past Surgical History: Procedure Laterality Date ??? ADENOIDECTOMY ??? CHOLECYSTECTOMY ??? HERNIA REPAIR ??? OTHER PROCEDURE uterine repair ??? [facility] No family history on file. Social: Social History Socioeconomic History ??? Marital [...] Social Determinants of Health Financial Resource Strain: ??? Difficulty of Paying Living Expenses: Food Insecurity: ??? Worried About Running Out of Food in the Last Year: ??? Ran Out of Food in the Last Year: Transportation Needs: ??? Lack of Transportation (Medical): ??? Lack of Transportation (Non-Medical): Physical Activity: ??? Days of Exercise per Week: ??? Minutes of Exercise per Session: Stress: ??? Feeling of Stress : Social Connections: ??? Frequency of Communication with Friends and Family: ??? Frequency of Social Gatherings with Friends and Family: ??? Attends [employer] Services: ??? Active Member of Clubs or Organizations: ??? Attends Club or Organization Meetings: ??? Marital Status: Intimate Partner Violence: ??? Fear of Current or Ex-Partner: ??? Emotionally Abused: ??? Physically Abused: ??? Sexually Abused: 14 point review of systems is unremarkable [...] please do not hesitate to contact me. Kvng Naidu DO documented in this encounter OR Notes * Op Note - Kvng Naidu DO - 12/18/2020 3:17 PM CDT EGD History/Preop: Here a very pleasant lady that is has trouble with nausea, vomiting, upper abdominalpain and heartburn. Heartburn is improved on omeprazole. She is here for endoscopic evaluation to assess for underlying peptic ulcer disease. Post Op: Unremarkable EGD. Status post antral biopsies. Procedure: EGD with biopsies. Findings: Examination of the esophagus was unremarkable. The Z-line is very distinct at 45 cm. Scope was advanced second portion of the duodenum. Visualized portion of the duodenum was unremarkable. Examination of the stomach in forward and retroflexed views was unremarkable. Antral biopsies were obtained. Recommendations: Avoid NSAIDs. Continue omeprazole. Small frequent feedings. Continue omeprazole and Reglan. Follow-up with primary as needed. Colonoscopy regarding chronic constipation. Anes: MAC Complications: No immediate. EBL: < 5ml. Procedure: The benefits, risks, complications and alternatives were explained in detail to the patient/power of county attorney. These were understood, assumed and written consent was obtained. The risk and complications include, but are not limited to, hemorrhage, perforation, infection, blood transfusion, surgery,and missed lesions. Anesthesia risks were explained by the department of anesthesiology which include, but are limited to, allergic reactions, cardiopulmonary arrest, heart attack, stroke, and pneumonia. All questions were addressed with understanding. The patient was placed in the left later decubitus position. Using the video endoscope it was inserted into the esophagus under direct vision. Detailed inspection of the esophagus was completed. The scope was advanced to the second portion of the duodenum/or otherwise stated. Examination of the duodenum was completed. The stomach was examined in the forward and retroflexed views/unless stated otherwise. The scope was withdrawn from the patient. Kvng Naidu DO documented in this encounter Plan of Treatment Not on file documented as of this encounter Procedures Procedure Name Priority Date/Time Associated Diagnosis Comments UPPER GI ENDOSCOPY,BIOPSY 12/18/2020 3:03 PM CDT EARLY SATIETY,NAUSEA EGD Routine 12/18/2020 2:55 PM CDT PROCEDURE GENERIC 12/18/2020 2:3 0 PM CDT RESPIRATORY PCR PANEL 2 STAT 12/18/2020 12:29 PM CDT PATHOLOGY Routine 12/18/2020 12:00 AM CDT documented in this encounter Results * PROCEDURE GENERIC (12/18/2020 2:30 PM CDT) Narrative 12/18/2020 2:30 PM CDT Ordered by an unspecified provider. us Documents Sc[facility] Final Result * RESPIRATORY PCR PANEL 2 (12/18/2020 12:29 PM CDT) ADENOVIRUS PCR (RESP) NOT DETECTED NOT DETECTED 12/18/2020 1:47 PM CDT [facility] CORONAVIRUS 229E PCR (RESP) NOT DETECTED NOT DETECTED 12/18/2020 1:47 PM CDT [facility] CORONAVIRUS HKU1 PCR (RESP) NOT DETECTED NOT DETECTED 12/18/2020 1:47 PM CDT [facility] CORONAVIRUS NL63 PCR (RESP) NOT DETECTED NOT DETECTED 12/18/2020 1:47 PM CDT [facility] CORONAVIRUS OC43 PCR (RESP) NOT DETECTED NOT DETECTED 12/18/2020 1:47 PM CDT [facility] METAPNEUMOVIRUS PCR (RESP) NOT DETECTED NOT DETECTED 12/18/2020 1:47 PM CDT [facility] RHINOVIRUS/ENTEROV IRUS PCR (RESP) NOT DETECTED NOT DETECTED 12/18/2020 1:47 PM CDT [facility] INFLUENZA A PCR (RESP) NOT DETECTED NOT DETECTED 12/18/2020 1:47 PM CDT [facility] INFLUENZA B PCR (RESP) NOT DETECTED NOT DETECTED 12/18/2020 1:47 PM CDT [facility] PARAINFLUENZA 1 PCR (RESP) NOT DETECTED NOT DETECTED 12/18/2020 1:47 PM CDT [facility] PARAINFLUENZA 2 PCR (RESP) NOT DETECTED NOT DETECTED 12/18/2020 1:47 PM CDT [facility] PARAINFLUENZA 3 PCR (RESP) NOT DETECTED NOT DETECTED 12/18/2020 1:47 PM CDT [facility] PARAINFLUENZA 4 PCR (RESP) NOT DETECTED NOT DETECTED 12/18/2020 1:47 PM CDT [facility] RSV PCR (RESP) NOT DETECTED NOT DETECTED 12/18/2020 1:47 PM CDT [facility] B PARAPERTUSIS PCR (RESP) NOT DETECTED NOT DETECTED 12/18/2020 1:47 PM CDT [facility] BORDETELLA PERTUSSIS PCR (RESP) NOT DETECTED NOT DETECTED 12/18/2020 1:47 PM CDT [facility] CHLAMYDOPHILA PNEUMONIAE PCR (RESP) NOT DETECTED NOT DETECTED 12/18/2020 1:47 PM CDT [facility] MYCOPLASMA PNEUMONIAE PCR (RESP) NOT DETECTED NOT DETECTED 12/18/2020 1:47 PM CDT [facility] CORONAVIRUS SARS COV 2 PCR (RESP) NOT DETECTED NOT DETECTED 12/18/2020 1:47 PM CDT [facility] FIRST TEST NO 12/18/2020 12:29 PM CDT [facility] EMPLOYED IN HEALTHCARE NO 12/18/2020 12:29 PM CDT [facility] SYMPTOMATIC DEFINED BY CDC NO 12/18/2020 12:29 PM CDT [facility] HOSPITALIZATION STATUS NO 12/18/2020 12:29 PM CDT [facility] PATIENT IN ICU UNKNOWN 12/18/2020 12:37 PM CDT [facility] RESIDENT OF [facility] NO 12/18/2020 12:29 PM CDT [facility] UNKNOWN 12/18/2020 12:29 PM CDT [facility] NASOPHARYNGEAL SWAB / Unknown 12/18/2020 12:29 PM CDT us Kvng Chatman Maria Eugeniagordon MICROBIOLOGY - GENERAL ORDERABL ES Final Result [facility] [address] [facility] [address] [place] [address], * Pathology (12/18/2020 12:00 AM CDT) COPATH REPORT ?[facility] ? [address] ? [place] ??[id number] ? [id number] ? Department of Pathology ? Pathology Report ? SURGICAL FINAL REPORT Patient Name: AZIZA LOCKHART ? : 1980 (Age: 40) ? Location: [facility] Gender: F ?Collected Date: 12/18/2020 Med Rec #: [id number] ?Date Received: 12/19/2020 Date Reported: 12/20/2020 Provider: KVNG NAIDU DO ?ELIDIA STEVENS MD Specimen(s) Gastric Antrum, Biopsy Final Pathologic Diagnosis GASTRIC ANTRUM, BIOPSY: ? GASTRIC MUCOSA WITH NO SIGNIFICANT HISTOLOGIC ABNORMALITIES ? IMMUNOHISTOCHEMICAL STAIN FOR H. PYLORI IS NEGATIVE Electronically Signed Out ? TRENT GILLESPIE MD Pathologist ATB:[facility] Microscopic Description: The microscopic examination supports the above diagnosis. The Immunohistochemical (IHC) stain controls perform as expected. These tests were developed and the performance characteristics determined by: [place], [place]; [place], [place]; [employer] [place], [place]: and/or [employer] [place], [place]. They have not been cleared or approved by the [place] Food and Drug Administration (FDA). The FDA has determined that such clearance or approval is not necessary. These tests are used for clinical purposes. Prognostic and predictive testing should be interpreted in the context of additional and/or histopathological findings. Clinical History Early satiety, nausea Gross Description Received is a single formalin-filled container labeled with the patient's name (Aziza Lockhart), date of (1980), collected 12/18/2020 at 1512, and additionally labeled antral biopsies. ??The specimen consists of two yellow-myers soft tissues, 0.3 cm and 0.4 cm in greatest dimension. ??The specimen is submitted in toto in cassette 1. :[facility] Billing Fee Code(s): 46141, [address] [facility] Tissue specimen (specimen) GASTRIC BIOPSY SPECIMEN / Unknown 12/18/2020 3:12 PM CDT us Kvng Naidu DO PATHOLOGY/CYTOLOGY ORDERABLES F inal Result [facility] [address] [place] [address], [place] [phone] documented in this encounter Visit Diagnoses Not on filedocumented in this encounter Administered Medications Inactive Administered Medications - up to 3 most recent administrations Medication Order MAR Action Action Date Dose Rate Site lactated ringers infusion at 10 mL/hr, Intravenous, Continuous, Starting on Wed12/18/20 at 1245, Until Wed12/18/20 at 1844, Infuse at TKO rate, Pre-Op New Bag 12/18/2020 3:04 PM CDT lactated ringers infusion at 10 mL/hr, Intravenous, Continuous, Starting on Wed12/18/20 at 1245, Until Wed12/18/20 at 1844, Infuse at TKO rate, Pre-Op documented in this encounter Active and Recently Administered Medications Times are shown in CDT. Continuous Medication Order 12/16/2020 12/17/2020 12/18/2020 lactated ringers infusion at 10 mL/hr, Intravenous, Continuous, Starting on Wed12/18/20 at 1245, Until Wed12/18/20 at 1844, Infuse at TKO rate, Pre-Op 1504 (New Bag - Prov ider: Kelvin Rand CRNA)1518 (Infusion Stop Time - Provider: Kelvin Rand CRNA) lactated ringers infusion at 10 mL/hr, Intravenous, Continuous, Starting on Wed12/18/20 at 1245, Until Wed12/18/20 at 1844, Infuse at TKO rate, Pre-Op 1245 (Canceled Entry - Provider: Automatic Discharge Provider - Comment: Automatically canceled at discontinue of medication order) lactated ringers infusion at 10 mL/hr, Intravenous, Continuous, Starting on Dorothy 12/19/20 at 0845, Until Dorothy 12/26/20 at 0327, Not to be given to patients with end stage renal disease or dialysis. Infuse at TKO rate, Pre-Op documented in this encounter Additional Health Concerns Infection Onset Date Last Indicated Resolved Time COVID-19 Rule Out 12/18/2020 12/18/2020 12/18/2020 1:48 PM CDT documented as of this encounter Care Teams Regulated Program Manager Relationship Specialty Start Date End Date Elana Weathers MD [address] [place] [address] PCP - General FAMILY PRACTICE 11/12/20 02/24/21 documented as of this encounter
--- OUTSIDE RECORDS SUMMARY | 2024-04-01 05:50 | XMS_ITS | Encounter Summary ---
Author Organization [facility] Address [address] [place] [address]. [place], [place] [address] [place] [address] Care Team Providers Care Survey Party Chief Name Role Phone Elana Weathers MD Primary Care Provider [phone] Encounter Details Date Type Department Care Team (Latest Contact Info) Description 12/18/2020 Travel Social History Tobacco Use Types Packs/Day [...] AM CDT documented as of this encounter Plan of Treatment Not on file documented as of this encounter Visit Diagnoses Not on filedocumented in this encounter Additional Health Concerns Infection Onset Date Last Indicated Resolved Time COVID-19 Rule Out 12/18/2020 12/18/2020 12/18/2020 1:48 PM CDT documented as of this encounter Care Teams Survey Party Chief Relationship Specialty Start Date End Date Elana Weathers MD [address] [place] [address] PCP - General FAMILY PRACTICE 11/12/20 02/24/21 documented as of this encounter
--- OUTSIDE RECORDS SUMMARY | 2024-04-01 05:50 | XMS_ITS | Encounter Summary ---
Author Organization [facility] Address [address] [place] [address]. [place] [address] [place] [address] Care Team Providers Care Manager Of Network Name Role Phone Elana Weathers MD Primary Care Provider [phone] Supriya Hay Primary Care Provider [phone] Encounter Details Date Type Department Care Team (Late st Contact Info) Description 01/29/2021 Prep for Procedure [facility] [place] [address] Dylan Naidu, DO [address] [facility] [address] [place] [address] Social History Tobacco Use Types Packs/Day Years [...] documented as of this encounter Visit Diagnoses Diagnosis Chronic constipation- Primary Unspecified constipation documented in this encounter Additional Health Concerns Infection Onset Date Last Indicated Resolved Time COVID-19 Rule Out 02/25/2021 02/25/2021 02/25/2021 11:29 AM DESPATCH CLERK COVID-19 Rule Out 03/31/2021 03/31/2021 03/31/2021 11:37 PM DESPATCH CLERK COVID-19 Confirmed 03/31/2021 03/31/2021 12:34 AM DESPATCH CLERK documented as of this encounter Care Teams Manager Of Network Relationship Specialty Start Date End Date Elana Weathers MD [address] [place] [address] PCP - General FAMILY PRACTICE 11/12/20 02/24/21 Supriya Hay PA [address] [facility] [address] [place] [address] PCP - General PHYSICIAN DIRECTOR OF FLIGHT OPERATIONS 02/25/21 documented as of this encounter
--- OUTSIDE RECORDS SUMMARY | 2024-04-01 05:50 | XMS_ITS | Encounter Summary ---
Author Organization [facility] Address [address] [place] [address]. [place] [address] [place] [address] Care Team Providers Care Saw Cleaner Name Role Phone Supriya Hay Primary Care Provider [phone] Reason for Visit * Auth/Cert Specialty Diagnoses / Procedures Referred By Melissa swanson Referred To Contact Diagnoses chronic constipation Procedures COLONOSCOPY Referral ID Status Reason Start Date Expiration Date Visits Re quested Visits Authorized [id number] 1 1 Encounter Details Date Type Department Care Team (Late st Contact Info) Description 02/25/2021 12:00 PM CLASSIFICATION CONTROL CLERK - 02/25/2021 12:30 PM CLASSIFICATION CONTROL CLERK Surgery [facility] [place] [address] Dylan Naidu, [address] [facility] [address] [place] [address] COLONOSCOPY Surgery Details Date/Time Status Location OR Service Patient Class Case Class Case Type Trauma Case? 02/25/2021 12:00 PM Posted [facility] 3 Gastroenterology Short Stay/Outp atient Surgery E - Elective No Panel 1 Procedure LRB Anes Op Region Wound Class Comments COLONOSCOPY N/A General Clean Contaminated procedure abandoned Surgeon Surgeon Role Service Panel Dylan Naidu, Primary Gastroenterology 1 documented in this encounter [...] COVID-19? No / Unsure 02/24/2021 1:47 PM CLASSIFICATION CONTROL CLERK documented as of this encounter Last Filed Vital Signs Vital Sign Reading Time Taken Comments Blood Pressure 134/79 02/25/2021 11:46 AM CLASSIFICATION CONTROL CLERK Pulse 82 02/25/2021 11:46 AM CLASSIFICATION CONTROL CLERK Temperature 36.6 ??C (97.9 ??F) 02/25/2021 11:[address] Respiratory Rate 19 02/25/2021 11:46 AM CLASSIFICATION CONTROL CLERK Oxygen Saturation 100% 02/25/2021 11:46 AM CLASSIFICATION CONTROL CLERK Inhaled Oxygen Concentration - - Weight 83 kg (183 lb) 02/24/2021 1:47 PM CLASSIFICATION CONTROL CLERK Height 157.5 cm (5' 2 ) 02/24/2021 1:47 PM CLASSIFICATION CONTROL CLERK Body Mass Index 33.47 02/24/2021 1:47 PM CLASSIFICATION CONTROL CLERK documented in this encounter Discharge Instructions * Discharge Instructions* Deyanira Mccullough RN - 02/25/2021 1:47 PM CLASSIFICATION CONTROL CLERK Recommendations: ?? Fiber. MiraLAX twice daily for constipation. Patient may benefit from, Trulance or Motegrity. Repeat colonoscopy with 2-day preparation. SIFICATION CONTROL CLERK * Attachments The following attachments cannot be sent through Care Everywhere. * Colonoscopy Discharge Instructions (Austrian) documented in this encounter Medications at Time [...] also states shefeels ready to go home SIFICATION CONTROL CLERK documented in this encounter H&P Notes * [...] hesitate to contact me. Dylan Naidu DO SIFICATION CONTROL CLERK documented in this encounter OR Notes * [...] explained in detail to the patient/power of civil litigation attorney. These were understood, assumed and written [...] tolerated the procedure well. Dylan Naidu DO SIFICATION CONTROL CLERK documented in this encounter Plan of Treatment Not on file documented as of this encounter Procedures Procedure Name Priority Date/Time Associated Diagnosis Comments COLONOSCOPY Routine 02/25/2021 2:17 PM CLASSIFICATION CONTROL CLERK COLONOSCOPY 02/25/2021 1:07 PM CLASSIFICATION CONTROL CLERK chronic constipation PROCEDURE GENERIC 02/25/2021 1:0 6 PM CLASSIFICATION CONTROL CLERK RESPIRATORY PCR PANEL 2 STAT 02/25/2021 10:19 AM CLASSIFICATION CONTROL CLERK documented in this encounter Results * PROCEDURE GENERIC (02/25/2021 1:06 PM CLASSIFICATION CONTROL CLERK) Narrative 02/25/2021 1:06 PM CLASSIFICATION CONTROL CLERK Ordered by an unspecified provider. us Documents [facility] Final Result * RESPIRATORY PCR PANEL 2 (02/25/2021 10:19 AM CLASSIFICATION CONTROL CLERK) ADENOVIRUS PCR (RESP) NOT DETECTED NOT DETECTED 02/25/2021 11:29 AM [facility] CORONAVIRUS 229E PCR (RESP) NOT DETECTED NOT DETECTED 02/25/2021 11:29 AM [facility] CORONAVIRUS HKU1 PCR (RESP) NOT DETECTED NOT DETECTED 02/25/2021 11:29 AM [facility] CORONAVIRUS NL63 PCR (RESP) NOT DETECTED NOT DETECTED 02/25/2021 11:29 AM [facility] CORONAVIRUS OC43 PCR (RESP) NOT DETECTED NOT DETECTED 02/25/2021 11:29 AM [facility] METAPNEUMOVIRUS PCR (RESP) NOT DETECTED NOT DETECTED 02/25/2021 11:29 AM [facility] RHINOVIRUS/ENTEROV IRUS PCR (RESP) NOT DETECTED NOT DETECTED 02/25/2021 11:29 AM [facility] INFLUENZA A PCR (RESP) NOT DETECTED NOT DETECTED 02/25/2021 11:29 AM [facility] INFLUENZA B PCR (RESP) NOT DETECTED NOT DETECTED 02/25/2021 11:29 AM [facility] PARAINFLUENZA 1 PCR (RESP) NOT DETECTED NOT DETECTED 02/25/2021 11:29 AM [facility] PARAINFLUENZA 2 PCR (RESP) NOT DETECTED NOT DETECTED 02/25/2021 11:29 AM [facility] PARAINFLUENZA 3 PCR (RESP) NOT DETECTED NOT DETECTED 02/25/2021 11:29 AM [facility] PARAINFLUENZA 4 PCR (RESP) NOT DETECTED NOT DETECTED 02/25/2021 11:29 AM [facility] RSV PCR (RESP) NOT DETECTED NOT DETECTED 02/25/2021 11:29 AM [facility] B PARAPERTUSIS PCR (RESP) NOT DETECTED NOT DETECTED 02/25/2021 11:29 AM [facility] BORDETELLA PERTUSSIS PCR (RESP) NOT DETECTED NOT DETECTED 02/25/2021 11:29 AM [facility] CHLAMYDOPHILA PNEUMONIAE PCR (RESP) NOT DETECTED NOT DETECTED 02/25/2021 11:29 AM [facility] MYCOPLASMA PNEUMONIAE PCR (RESP) NOT DETECTED NOT DETECTED 02/25/2021 11:29 AM [facility] CORONAVIRUS SARS COV 2 PCR (RESP) NOT DETECTED NOT DETECTED 02/25/2021 11:29 AM [facility] FIRST TEST NO 02/25/2021 10:20 AM [facility] EMPLOYED IN HEALTHCARE NO 02/25/2021 10:20 AM [facility] SYMPTOMATIC DEFINED BY CDC UNKNOWN 02/25/2021 10:20 AM [facility] HOSPITALIZATION STATUS UNKNOWN 02/25/2021 10:20 AM [facility] PATIENT IN ICU UNKNOWN 02/25/2021 10:27 AM [facility] RESIDENT OF [facility] NO 02/25/2021 10:20 AM [facility] UNKNOWN 02/25/2021 10:20 AM [facility] NASOPHARYNGEAL SWAB / Unknown 02/25/2021 10:19 AM CLASSIFICATION CONTROL CLERK us Dylan Naidu DO MICROBIOLOGY - GENERAL ORDERABL ES Final Result [facility] [address] [place] [address], [place] [phone] documented in this encounter Visit Diagnoses Not on filedocumented in this encounter Administered Medications Inactive Administered Medications - up to 3 most recent administrations Medication Order MAR Action Action Date Dose Rate Site lactated ringers infusion at 10 mL/hr, Intravenous, Continuous, Starting on 02/25/21 at 1215, Until 02/25/21 at 1659, Infuse at TKO rate, Pre-Op New Bag 02/25/2021 1:04 PM CLASSIFICATION CONTROL CLERK lactated ringers infusion at 10 mL/hr, Intravenous, Continuous, Starting on 02/25/21 at 1445, Until 02/25/21 at 1659, Not to be given to patients with end stage renal disease or dialysis. Infuse at TKO rate, Pre-Op ondansetron (ZOFRAN) injection 4 mg 4 mg, Intravenous, Once as needed, Nausea, Vomiting, 1 dose, Starting on Tu02/25/21 at 1416, Until Tu02/25/21 at 1418, Administer slowly over 3-4 minutes. If more than one antiemetic is ordered, use in this order: ondansetron, diphenhydramine, metoclopramide, haloperidol, promethazine. If nausea / vomiting still not controlled, move to next ordered medication., PACU Given 02/25/2021 2:18 PM CLASSIFICATION CONTROL CLERK 4 mg documented in this encounter Active and Recently Administered Medications Times are shown in CLASSIFICATION CONTROL CLERK. Continuous Medication Order 02/23/2021 02/24/2021 02/25/2021 lactated ringers infusion at 10 mL/hr, Intravenous, Continuous, Starting on 02/25/21 at 1215, Until 02/25/21 at 1659, Infuse at TKO rate, Pre-Op [...] needed, Nausea, Vomiting, 1 dose, Starting on 02/25/21 at 1416, Until 02/25/21 at 1418, [...] Rule Out 02/25/2021 02/25/2021 02/25/2021 11:29 AM CLASSIFICATION CONTROL CLERK documented as of this encounter Care Teams Saw Cleaner Relationship Specialty Start Date End Date Supriya Hay PA [address] [facility] [address] [place] [address] PCP - General PHYSICIAN ASSEMBLER PRODUCTION LINE 02/25/21 documented as of this encounter
--- OUTSIDE RECORDS SUMMARY | 2024-04-01 05:50 | XMS_ITS | Encounter Summary ---
Author Organization [facility] Address [address] [place] [address]. [place], [place] [address] [place] [address] Care Team Providers Care Machine Lay Out Worker Name Role Phone Elana Weathers MD Primary Care Provider [phone] Reason for Visit * Auth/Cert Specialty Diagnoses / Procedures Referred By Melissa swanson Referred To Contact Diagnoses EARLY SATIETY,NAUSEA Procedures EGD Referral ID Status Reason Start Date Expiration Date Visits Re quested Visits Authorized [id number] 1 1 Encounter Details Date Type Department Care Team (Latest Contact Info) Description 12/18/2020 11:27 AM CDT - 12/18/2020 4:44 PM CDT Hospital Encounter [facility] [place] [address] Kvng Naidu T, DO [address] [facility] [address] [place] [address] Discharge Disposition: Home or Self Care (Routine [...] AM CDT documented as of this encounter Last Filed Vital Signs Vital Sign Reading Time Taken Comments Blood Pressure 152/85 12/18/2020 3:34 PM CDT Pulse 69 12/18/2020 3:34 PM CDT Temperature 36.7 ??C (98.1 ??F) 12/18/2020 3:15 PM CD T Respiratory Rate 16 12/18/2020 3:34 PM CDT Oxygen Saturation 99% 12/18/2020 3:34 PM CDT Inhaled Oxygen Concentration - - Weight 81.6 kg (180 lb) 12/18/2020 2:41 PM CDT Height 154.9 cm (5' 1 ) 12/18/2020 2:41 PM CDT Body Mass Index 34.01 12/18/2020 2:41 PM CDT documented in this encounter Discharge Instructions * Discharge Instructions* Stephenie Us RN - 12/18/2020 3:29 PM CDT Recommendations: ?? Avoid NSAIDs. Continue omeprazole. Small frequent feedings. Continue omeprazole and Reglan. Follow-up with primary as needed. Colonoscopy regarding chronic constipation. * Attachments The following attachments cannot be sent through Care Everywhere. * Upper GI Endoscopy Discharge Instructions (Croatian) * General Anesthesia Discharge Instructions (Croatian) documented in this encounter Medications at Time [...] of this encounter H&P Notes * Kvng Naidu, - 12/18/2020 2:53 PM CDT This very [...] OTHER PROCEDURE uterine repair ??? TONSILLECTOMY [facility] No family history on file. Social: Social [...] Gatherings with Friends and Family: ??? Attends Confucianism Services: ??? Active Member of Clubs or [...] explained in detail to the patient/power of outside machinist supervisor. These were understood, assumed and written consent [...] DETECTED NOT DETECTED 12/18/2020 1:47 PM CDT [facility] CORONAVIRUS 229E PCR (RESP) NOT DETECTED NOT DETECTED 12/18/2020 1:47 PM CDT [facility] CORONAVIRUS HKU1 PCR (RESP) NOT DETECTED NOT DETECTED 12/18/2020 1:47 PM CDT [facility] CORONAVIRUS NL63 PCR (RESP) NOT DETECTED NOT DETECTED 12/18/2020 1:47 PM CDT [facility] CORONAVIRUS OC43 PCR (RESP) NOT DETECTED NOT DETECTED 12/18/2020 1:47 PM CDT [facility] METAPNEUMOVIRUS PCR (RESP) NOT DETECTED NOT DETECTED 12/18/2020 1:47 PM CDT [facility] RHINOVIRUS/ENTEROV IRUS PCR (RESP) NOT DETECTED NOT DETECTED 12/18/2020 1:47 PM CDT [facility] INFLUENZA A PCR (RESP) NOT DETECTED NOT DETECTED 12/18/2020 1:47 PM CDT [facility] INFLUENZA B PCR (RESP) NOT DETECTED NOT DETECTED 12/18/2020 1:47 PM CDT [facility] PARAINFLUENZA 1 PCR (RESP) NOT DETECTED NOT DETECTED 12/18/2020 1:47 PM CDT [facility] PARAINFLUENZA 2 PCR (RESP) NOT DETECTED NOT DETECTED 12/18/2020 1:47 PM CDT [facility] PARAINFLUENZA 3 PCR (RESP) NOT DETECTED NOT DETECTED 12/18/2020 1:47 PM CDT [facility] PARAINFLUENZA 4 PCR (RESP) NOT DETECTED NOT DETECTED 12/18/2020 1:47 PM CDT [facility] RSV PCR (RESP) NOT DETECTED NOT DETECTED 12/18/2020 1:47 PM CDT [facility] B PARAPERTUSIS PCR (RESP) NOT DETECTED NOT DETECTED 12/18/2020 1:47 PM CDT [facility] BORDETELLA PERTUSSIS PCR (RESP) NOT DETECTED NOT DETECTED 12/18/2020 1:47 PM CDT [facility] CHLAMYDOPHILA PNEUMONIAE PCR (RESP) NOT DETECTED NOT DETECTED 12/18/2020 1:47 PM CDT [facility] MYCOPLASMA PNEUMONIAE PCR (RESP) NOT DETECTED NOT DETECTED 12/18/2020 1:47 PM CDT [facility] CORONAVIRUS SARS COV 2 PCR (RESP) NOT DETECTED NOT DETECTED 12/18/2020 1:47 PM CDT [facility] FIRST TEST NO 12/18/2020 12:29 PM CDT [facility] EMPLOYED IN HEALTHCARE NO 12/18/2020 12:29 PM CDT [facility] SYMPTOMATIC DEFINED BY CDC NO 12/18/2020 12:29 PM CDT [facility] HOSPITALIZATION STATUS NO 12/18/2020 12:29 PM CDT [facility] PATIENT IN ICU UNKNOWN 12/18/2020 12:37 PM CDT [facility] RESIDENT OF [facility] NO 12/18/2020 12:29 PM CDT [facility] UNKNOWN 12/18/2020 12:29 PM CDT [facility] NASOPHARYNGEAL SWAB / Unknown 12/18/2020 12:29 PM CDT us Kvng Naidu DO MICROBIOLOGY - GENERAL ORDERABL ES Final Result [facility] [address] [facility] [place] [address], * Pathology (12/18/2020 12:00 AM CDT) COPATH REPORT ?[facility] ? [address] [facility] [address] ? [place], [place] ??[address] ? [id number] ? Department of Pathology ? Pathology Report ? SURGICAL FINAL REPORT Patient Name: AZIZA LOCKHART ? : 1980 (Age: 40) ? Location: [facility] Gender: F ?Collected Date: 12/18/2020 Med Rec #: [id number] ?Date Received: 12/19/2020 Date Reported: 12/20/2020 Provider: KVNG NAIDU DO ?ELIDIA STEVENS MD Specimen(s) Gastric Antrum, Biopsy Final Pathologic Diagnosis GASTRIC ANTRUM, BIOPSY: ? GASTRIC MUCOSA WITH NO SIGNIFICANT HISTOLOGIC ABNORMALITIES ? IMMUNOHISTOCHEMICAL STAIN FOR H. PYLORI IS NEGATIVE Electronically Signed Out ? TRENT GILLESPIE MD Pathologist ATB:cdc1 Microscopic Description: The microscopic examination supports the above diagnosis. The Immunohistochemical (IHC) stain controls perform as expected. These tests were developed and the performance characteristics determined by: [place], [place]; [place], [place]; [employer] [place], [place]: and/or Infusion Resource [place], [place]. They have not been cleared [...] is submitted in toto in cassette 1. :cdc1 Billing Fee Code(s): 13477, 62299 [facility] Tissue specimen (specimen) GASTRIC BIOPSY SPECIMEN / Unknown 12/18/2020 3:12 PM CDT us Kvng Naidu DO PATHOLOGY/CYTOLOGY ORDERABLES F inal Result [facility] [address] [place] [address], [place] [phone] documented in this encounter Visit Diagnoses Not [...] documented as of this encounter Care Teams Machine Lay Out Worker Relationship Specialty Start Date End Date Elana Weathers MD [address] [place] [address] PCP - General FAMILY PRACTICE 11/12/20 02/24/21 documented as of this encounter
--- OUTSIDE RECORDS SUMMARY | 2024-04-01 05:50 | XMS_ITS | Encounter Summary ---
Author Organization [facility] Address [address] [place] [address]. [place], [place] [address] [place] [address] Care Team Providers Care Bolter Helper Name Role Phone Unavailable Primary Care Provider Unavailabl e Encounter Details Date Type Department Care Team (Late st Contact Info) Description 09/24/2002 Abstract [facility] Labor & Delivery [place], [place] [id number] Angel Schneider MD [address] [place], [place] [id number] Social History Tobacco Use Types Packs/Day Years [...]
--- OUTSIDE RECORDS SUMMARY | 2024-04-01 05:50 | XMS_ITS | Encounter Summary ---
Author Organization [facility] Address [address] [place] [address]. [place], [place] [address] [place] [address] Care Team Providers Care Career Consultant Name Role Phone Elana Weathers MD Primary Care Provider [phone] Encounter Details Date Type Department Care Team (Late st Contact Info) Description 03/15/2003 Abstract [facility] Emergency Services [address] [place] [address] Helio Sprague, DO [address] [place] [address] Social History Tobacco Use Types Packs/Day Years [...] on filedocumented in this encounter Care Teams Career Consultant Relationship Specialty Start Date End Date Elana Weathers MD [address] [place] [address] PCP - General FAMILY PRACTICE 11/12/20 02/24/21 documented as of this encounter
--- OUTSIDE RECORDS SUMMARY | 2024-04-01 05:50 | XMS_ITS | Encounter Summary ---
Author Organization [facility] Address [address] [place] [address]. [place], [place] [address] [place] [address] Care Team Providers Care Package Dyeing Machine Operator Name Role Phone Elana Weathers MD Primary Care Provider [phone] Encounter Details Date Type Department Care Team (Late st Contact Info) Description 04/15/2006 Abstract [facility] Emergency Services [facility] [place] [address] , Kalen Guevara MD Social History Tobacco [...] on filedocumented in this encounter Care Teams Package Dyeing Machine Operator Relationship Specialty Start Date End Date Elana Weathers MD [address] [place] [address] PCP - General FAMILY PRACTICE 11/12/20 02/24/21 documented as of this encounter
--- OUTSIDE RECORDS SUMMARY | 2024-04-01 05:50 | XMS_ITS | Encounter Summary ---
Author Organization [facility] Address [address] [place] [address]. [place], [place] [address] [place] [address] Care Team Providers Care Auto Service Dispatcher Name Role Phone Elana Weathers MD Primary Care Provider [phone] Encounter Details Date Type Department Care Team (Latest Contact Info) Description 02/24/2021 Travel Social History Tobacco Use Types Packs/Day [...] COVID-19? No / Unsure 02/24/2021 1:47 PM ECONOMIC ANALYSIS DIRECTOR documented as of this encounter Plan of Treatment Not on file documented as of this encounter Visit Diagnoses Not on filedocumented in this encounter Care Teams Auto Service Dispatcher Relationship Specialty Start Date End Date Elana Weathers MD [address] [place] [address] PCP - General FAMILY PRACTICE 11/12/20 02/24/21 documented as of this encounter
--- OUTSIDE RECORDS SUMMARY | 2024-04-01 05:50 | XMS_ITS | Encounter Summary ---
Author Organization [facility] Address [address] [place] [address]. [place], [place] [address] [place] [address] Care Team Providers Care Buckle Sewer Machine Name Role Phone Unavailable Primary Care Provider Unavailabl e Encounter Details Date Type Department Care Team (Late st Contact Info) Description 10/05/2005 [place] [address] , Generic Conversion, Social History Tobacco Use [...]
--- OUTSIDE RECORDS SUMMARY | 2024-04-01 05:50 | XMS_ITS | Encounter Summary ---
Author Organization [facility] Address [address] [place] [address]. [place], [place] [address] [place] [address] Care Team Providers Care Arts And Sciences Dean Name Role Phone Unavailable Primary Care Provider Unavailabl e Encounter Details Date Type Department Care Team (Late st Contact Info) Description 04/29/2005 [place] [address] , Generic Conversion, Social History Tobacco Use [...]
--- OUTSIDE RECORDS SUMMARY | 2024-04-01 05:50 | XMS_ITS | Encounter Summary ---
Author Organization [facility] Address [address] [place] [address]. [place], [place] [address] [place] [address] Care Team Providers Care Student Education Specialist Name Role Phone Unavailable Primary Care Provider Unavailabl e Encounter Details Date Type Department Care Team (Late st Contact Info) Description 08/20/2005 Abstract [place] [address] , Generic Conversion, Social History Tobacco Use [...]
--- OUTSIDE RECORDS SUMMARY | 2024-04-01 05:50 | XMS_ITS | Encounter Summary ---
Author Organization [facility] Address [address] [place] [address]. [place] [address] [place] [address] Care Team Providers Care Chainer Name Role Phone Elana Weathers MD Primary Care Provider [phone] Supriya Hay Primary Care Provider [phone] Encounter Details Date Type Department Care Team (Late st Contact Info) Description 11/11/2020 Prep for Procedure [facility] [place] [address] Dylan Naidu, DO [address] [facility] [address] [place] [address] Social History Tobacco Use Types Packs/Day Years [...] Out 12/18/2020 12/18/2020 12/18/2020 1:48 PM CDT COVID-19 Rule Out 02/25/2021 02/25/2021 02/25/2021 11:29 AM FILM PROCESSING UTILITY WORKER COVID-19 Rule Out 03/31/2021 03/31/2021 03/31/2021 11:37 PM FILM PROCESSING UTILITY WORKER COVID-19 Confirmed 03/31/2021 03/31/2021 12:34 AM FILM PROCESSING UTILITY WORKER documented as of this encounter Care Teams Chainer Relationship Specialty Start Date End Date Elana Weathers MD [address] [place] [address] PCP - General FAMILY PRACTICE 11/12/20 02/24/21 Supriya Hay PA [address] [facility] [address] [place] [address] PCP - General PHYSICIAN PIPE CLEANER 02/25/21 documented as of this encounter
--- OUTSIDE RECORDS SUMMARY | 2024-04-01 05:50 | XMS_ITS | Encounter Summary ---
Author Organization [facility] Address [address] [place] [address]. [place] [address] [place] [address] Care Team Providers Care Union Organizer Name Role Phone Elana Weathers MD Primary Care Provider [phone] Encounter Details Date Type Department Care Team (Late st Contact Info) Description 06/25/2003 Abstract [facility] Emergency Services [address] [place] [address] Teresa Zayas MD [address] [place] [address], [facility] [address] [place] [address] Social History Tobacco Use Types Packs/Day Years [...] on filedocumented in this encounter Care Teams Union Organizer Relationship Specialty Start Date End Date Elana Weathers MD [address] [place] [address] PCP - General FAMILY PRACTICE 11/12/20 02/24/21 documented as of this encounter
--- OUTSIDE RECORDS SUMMARY | 2024-04-01 05:51 | XMS_ITS | Referral Summary ---
Author Organization [facility] Address [address] [place] [address] Care Team Providers Care Engine Boss Name Role Phone Supriya Hay Primary Care Provider +1- [phone] Helio Carrera MD Unavailable Encounters Date Type Department Care Team Description 03/29/2024 Telephone [facility] Family Medicine [address] [place] [address] [place] [phone] Supriya Hay PA 02/11/2024 Telephone [facility] Medicine [address] [place] [address] [place] [phone] Supriya Hay PA Appointment Request 01/18/2024 Telephone [facility] Medicine [address] [place] [address] [place] [phone] Supriya Hay PA from Last 3 Months Allergies Active Allergy Reactions Criticality Noted Date Comments Clindamycin Shortness of breath High 05/15/2016 Sulfa (Sulfonamide Antibiotics) Itching Low 04/23 Medications dicyclomine (BENTYL) 20 mg tablet Take 1 tablet (20 mg total) by mouth every 6 (six) hours Active INV-[facility] relugolix/E2/SHIVA (/-) 40 mg/1 mg/0.5 mg tablet Take 1 tablet by mouth daily 4 Active omeprazole (PriLOSEC) 40 mg capsule Take 1 capsule (40 mg total) by mouth daily 30 capsule 3 4 Active ondansetron ODT (ZOFRAN-ODT) 4 mg disintegrating tablet Take 1 tablet (4 mg total) by mouth every 8 (eight) hours as needed for nausea or vomiting 20 tablet 5 Active ondansetron ODT (ZOFRAN-ODT) 4 mg disintegrating tablet Take 1 tablet (4 mg total) by mouth every 8 (eight) hours as needed for nausea or vomiting 20 tablet 4 025 Discontin ued(Reord er) Active Problems Problem Noted Date Diagnosed Date Fatigue 12/19/2023 Assessment & Plan (12/19/2023 8:33 PM CDT): Probably multifactorial. Check labs and followup to re-evaluate Soreness of tongue 12/19/2023 Assessment & Plan (12/19/2023 8:34 PM CDT): Patient has noticed significant soreness of her tongue. Symptoms make me wonder could this be reflux and will treat it with a PPI and follow-up in 6-8 weeks or so. Also check labs including a B12. If symptoms persist may need to see ENT to rule out other causes. Left ear pain 12/19/2023 Assessment & Plan (12/19/2023 8:35 PM CDT): Patient notes increased left ear pain. On exam it is mildly injected but may be heading towards an infection. Will start Amoxil 500 mg t.i.d. times 10 days. Follow up if symptoms do not resolve. May also start antihistamine as well as Flonase and see if this helps with her symptoms. Vitamin D deficiency 11/10/2023 Large breasts 10/05/2023 Assessment & Plan (10/05/2023 11:46 AM CDT): Patient with large breasts. States he had been this way for many years. She has pain in the neck and back. Uses white strap bras and still does not feel like it gives enough support. Advised she can call her insurance to see if there is a plastic surgeon in the area that will help with a breast reduction. When she determines who she would like to see how be glad to make that referral for her. Grief 10/05/2023 Assessment & Plan (12/19/2023 8:33 PM CDT): Patient has experienced multiple deaths this year. Still strongly encouraged counseling. Provided information again for heart link and my staff contacted them to clear things up and provided the number for patient to call for immediate help. She is not interested in medication at this time. Will see how counseling goes Assessment & Plan (10/05/2023 11:47 AM CDT): Patient with significant grief after multiple losses in her family. Discussed the importance of grief counseling. Provided information about grief share as well as heart strings in [place] for support. Discussed medications including risks benefits alternatives side effects and proper use. She states she has good support around her and would like to try counseling before considering medication. If her symptoms increase she may call at any time to consider starting an SSRI Pre-diabetes 10/05/2023 Assessment & Plan (12/19/2023 8:33 PM CDT): Pre-diabetes/hyperglycemia is a precursor to Dm. Stressed importance of working on diet (decrease your simple sugars and one carbohydrate with each meal) and increase you exercise to achieve weight loss and this will help prevent you from progressing to diabetes. Assessment & Plan (10/05/2023 11:46 AM CDT): Pre-diabetes/hyperglycemia is a precursor to Dm. Stressed importance of working on diet (decrease your simple sugars and one carbohydrate with each meal) and increase you exercise to achieve weight loss and this will help prevent you from progressing to diabetes. Research study patient 05/13/2023 Respiratory infection 01/24/2023 Assessment & Plan (01/24/2023 9:58 PM BATCH FREEZER OPERATOR): Start antibiotic, antihistamine (Claritin OR Zyrtec), Mucinex 12hour and Steroid nasal spray (Flonase). Push fluids. Rest. Supportive care. If sxs worsen or don\'t improve, pt is to followup in the office. Patient struggles with yeast infections when she is on an antibiotic so will send out a Diflucan. Obesity (BMI 30.0-34.9) 01/13/2023 Assessment & Plan (12/06/2023 2:56 PM CDT): Discussed the patient's BMI. The BMI is above average. BMI management plan is completed. BMI Follow-up includes: nutrition counseling, exercise counseling and education provided. Assessment & Plan (10/05/2023 11:47 AM CDT): Discussed the patient's BMI. The BMI is above average. BMI management plan is completed. BMI Follow-up includes: nutrition counseling, exercise counseling and education provided. Patient has an obesity-related condition (not limited to: hypertension, obstructive sleep apnea, osteoarthritis, hyperlipidemia, diabetes, etc.). Therefore, morbid obesity may be documented for patients with a BMI between 35.00-39.99. Assessment & Plan (01/13/2023 11:50 AM CDT): Discussed the patient's BMI. The BMI is above average. BMI management plan is completed. BMI Follow-up includes: nutrition counseling, exercise counseling and education provided. BMI 33.0-33.9,adult 01/13/2023 Assessment & Plan (12/06/2023 2:56 PM CDT): Discussed the patient's BMI. The BMI is above average. BMI management plan is completed. BMI Follow-up includes: nutrition counseling, exercise counseling and education provided. Assessment & Plan (10/05/2023 11:47 AM CDT): Discussed the patient's BMI. The BMI is above average. BMI management plan is completed. BMI Follow-up includes: nutrition counseling, exercise counseling and education provided. Assessment & Plan (01/13/2023 11:50 AM CDT): Discussed the patient's BMI. The BMI is above average. BMI management plan is completed. BMI Follow-up includes: nutrition counseling, exercise counseling and education provided. Intramural leiomyoma of uterus 05/19/2022 IUD strings lost 05/15/2022 Edema, lower extremity 12/03/2021 Assessment & Plan (12/03/2021 8:26 PM CDT): Patient has noted lower extremity edema since she has been traveling more. Upon reviewing dash diet and what constitutes 2000 mg of sodium a day it is evident that especially when she is traveling she is eating out at fast food and at restaurants and is exceeding this by quite a bit. Her swelling is definitely intermittent and improves when she is at home. Suspect this is more dietary related and dependent edema. She has had a negative DVT at [facility]. She has absolutely no swelling no symptoms today had a negative CT a of the chest just 2 days ago with no pulmonary embolism. Discussed getting another venous Doppler but I do not suspect that that is needed since she is completely asymptomatic today. Encouraged her to start wearing compression stockings. Follow dash diet and keep her sodium intake to less than 2000 mg a day. Will start hydrochlorothiazide 25 mg to pull off a little extra fluid. Encouraged her to move her legs while she is traveling whether it is by plane or by car. If her symptoms worsen or do not resolve she is to follow up immediately for further evaluation. Will go ahead and get an echo since it has been more persistent and she is concerned. Pancreatic lesion 12/03/2021 Overview (02/14/2022): CTA Chest 12/01/2021 IMPRESSION: 6 mm lesion in the pancreatic tail is indeterminate for a small lipoma. If further workup is desired, would consider IV enhanced pancreatic MRI. MRI confirmed pancreatic lipoma. No further followup EGD: - Normal esophagus. - Normal stomach. - Normal examined duodenum. EUS: - The pancreas was noted with non-specific parenchymal changes consisting of hyperechoic foci and echogenicity likely due to fat deposition. The pancreatic duct was non-dilated at 1mm. - In the tail of the pancreas, corresponding to description on MRI and CT scans, there was a 10mm, well circumscribed, round, hypoechoic lesion. There was surrounding vasculature from the splenic hilum making potential EUS guided sampling high risk. Given unequivocal description of the lesion as a benign lipoma on MRI today, further sampling was therefore not pursued. - There was no sign of significant pathology in the common bile duct. Recommendation: - Observe patient's clinical course following today's EGD/EUS. - Followup with referring physician. - Resume home medications and diet. - Return to primary care physician as previously scheduled. Assessment & Plan (02/14/2022 3:12 PM BATCH FREEZER OPERATOR): Workup is negative. Suspect benign lesion by imaging and EGD Assessment & Plan (12/03/2021 8:24 PM CDT): CTA Chest 12/01/2021 IMPRESSION: 6 mm lesion in the pancreatic tail is indeterminate for a small lipoma. If further workup is desired, would consider IV enhanced pancreatic MRI. Reviewed with patient. Encouraged getting the MRI of the pancreas with contrast as suggested by Radiology. Will follow-up pending these results. [facility] Chronic pain of left knee 06/04/2020 Left leg pain 05/24/2020 Assessment & Plan (05/24/2020 8:28 PM BATCH FREEZER OPERATOR): Persistent pain after a fall about 3 weeks ago. Still limping. Negative xrays at ER. Using NSAIDs and ice. Will refer to Ortho for further evaluation due to the persistent of her sxs. Mixed hyperlipidemia 05/24/2020 Assessment & Plan (12/19/2023 8:33 PM CDT): Encouraged patient to follow low fat/low chol diet like the Mediterranean diet. Increase good fats in the diet. Increase exercise. Monitor labs as needed. Assessment & Plan (10/05/2023 11:47 AM CDT): Encouraged patient to follow low fat/low chol diet like the Mediterranean diet. Increase good fats in the diet. Increase exercise. Monitor labs as needed. Assessment & Plan (01/24/2023 9:57 PM BATCH FREEZER OPERATOR): Encouraged patient to follow low fat/low chol diet like the Mediterranean diet. Increase good fats in the diet. Increase exercise. Monitor labs as needed. Assessment & Plan (05/24/2020 8:30 PM BATCH FREEZER OPERATOR): Encouraged patient to follow fat/low chol diet like the Mediterranean diet. Increase good fats in the diet. Increase exercise. Monitor labs as needed. If not enough change with diet/exercise will need to start statin due to LDL. Migraine without aura and wi thout status migrainosus, not intractable 03/01/2020 Assessment & Plan (05/24/2020 8:29 PM BATCH FREEZER OPERATOR): Continue with the Maxalt. Continue to monitor as was difficult to see pattern with this fall as it is negatively affecting her sleep patterns. Mobic may help is tension component Assessment & Plan (03/01/2020 10:07 PM BATCH FREEZER OPERATOR): Discussed possible triggers. Start Maxalt prn. Get regular rest/exercise. Check labs. Bring diary to next visit with [facility]DE[facility]. Chronic midline low back pain without sciatica 1 05/02/2019 Assessment & Plan (03/01/2020 10:15 PM BATCH FREEZER OPERATOR): Encouraged exercise, stretching, walking and weight loss. Resolved Problems Problem Noted Date Diagnosed Date Resolved Date Obesity (BMI 30-39.9) 01/22/20222022 Assessment & Plan (01/22/2022 2:15 PM CDT): Obesity is unchanged. Discussed the patient's BMI. The BMI is above average. BMI management plan is completed. BMI Follow-up includes: nutrition counseling, exercise counseling and education provided. BMI 34.0-34.9,adult 01/22/2022 01/14/20 23 Assessment & Plan (01/22/2022 2:15 PM CDT): Obesity is unchanged. Discussed the patient's BMI. The BMI is above average. BMI management plan is completed. BMI Follow-up includes: nutrition counseling, exercise counseling and education provided. BMI 34.0-34.9,adult 12/03/2021 12/04/19 22 Obesity (BMI 30-39.9) 05/23/20202021 Assessment & Plan (12/03/2021 8:24 PM CDT): Discussed the patient's BMI. The BMI is above average. BMI management plan is completed. BMI Follow-up includes: nutrition counseling, exercise counseling and education provided. Assessment & Plan (05/23/2020 2:13 PM BATCH FREEZER OPERATOR): Obesity is unchanged. Discussed the patient's BMI. The BMI is above average. BMI management plan is completed. BMI Follow-up includes: nutrition counseling, exercise counseling and education provided. BMI 34.0-34.9,adult 05/23/2020 01/23/20 Assessment & Plan (12/03/2021 8:20 PM CDT): Discussed the patient's BMI. The BMI is above average. BMI management plan is completed. BMI Follow-up includes: nutrition counseling, exercise counseling and education provided. Assessment & Plan (05/23/2020 2:13 PM BATCH FREEZER OPERATOR): Obesity is unchanged. Discussed the patient's BMI. The BMI is above average. BMI management plan is completed. BMI Follow-up includes: nutrition counseling, exercise counseling and education provided. Diabetes mellitus screening 03/01/2020 10/05/2023 Assessment & Plan (01/24/2023 9:57 PM BATCH FREEZER OPERATOR): Check labs Assessment & Plan (03/01/2020 10:06 PM BATCH FREEZER OPERATOR): Check labs Lipid screening 03/01/2020 10/05/2023 Assessment & Plan (01/24/2023 9:57 PM BATCH FREEZER OPERATOR): Check labs Assessment & Plan (03/01/2020 10:06 PM BATCH FREEZER OPERATOR): Check labs Other fatigue 03/01/2020 10/05/2023 Assessment & Plan (01/24/2023 9:57 PM BATCH FREEZER OPERATOR): Probably multifactorial. Check labs and followup to re-evaluate Assessment & Plan (03/01/2020 10:07 PM BATCH FREEZER OPERATOR): Probably multifactorial. Check labs and followup to re-evaluate Annual physical exam 03/01/2020 021 Assessment & Plan (03/01/2020 10:06 PM BATCH FREEZER OPERATOR): Encouraged healthy lifestyle, good nutrition and exercise. Encouraged Calcium and Vitamin D and weight bearing exercise for bone health. Reviewed immunizations Reviewed age appropirate screenings. BMI 31.0-31.9,adult 02/28/2020 05/24/19 21 Assessment & Plan (02/28/2020 2:24 PM BATCH FREEZER OPERATOR): Obesity is unchanged. Discussed the patient's BMI. The BMI is above average. BMI management plan is completed. BMI Follow-up includes: nutrition counseling, exercise counseling and education provided. Obesity (BMI 30-39.9) 02/28/20202020 Assessment & Plan (03/01/2020 10:06 PM BATCH FREEZER OPERATOR): Obesity is unchanged. Discussed the patient's BMI. The BMI is above average. BMI management plan is completed. BMI Follow-up includes: nutrition counseling, exercise counseling and education provided Need for immunization against influenza 02/28/2020 12/03/2021 Assessment & Plan (03/01/2020 10:06 PM BATCH FREEZER OPERATOR): Encouraged vaccine. Reviewed risks/ benefits. Patient refuses and accepts risks. Immunizations Name Administration Dates Next Due Influenza, Unspecified 03/22/2023(Deferr ed: Patient Refused),03/22/2022(Deferred: Patient Refused),03/12/2022(Deferred: Patient Refused),03/22/2021(Deferred: Patient Refused),02/19/2019(Deferred: Patient Refused) MMR 05/21/1994 Td, adsorbed 12/03/1995 Social History Tobacco Use Types Packs/Day Years Used Date Smoking Tobacco: Never Smokeless Tobacco: Never Tobacco Cessation:Counseling Given: Not Answered Alcohol Use Standard Drinks/Week Comments Never 0 (1 standard drink = 0.6 oz pur e alcohol) AUDIT-C Answer Date Recorded Q1: How often do you have a drink containing alcohol? Never 01/13/2023 Q2: How many drinks containi ng alcohol do you have on a typical day when you are drinking? Patient does not drink Q3: How often do you have si x or more drinks on one occasion? Never 01/13/2023 PHQ-2 Answer Date Recorded PHQ-2 Total Score (If total score is 3 or more points, staff should administer the PHQ-9) 2 12/06/2023 Personal Safety Answer Date Recorded Getting School Help Needed Not on file 04/04 Comments No Sex and Gender Information Value Date Recorded Sex Assigned at Female 11/16/2022 3:54 PM CDT Legal Sex Female 12:02 AM BATCH FREEZER OPERATOR Gender Identity Female 11/16/2022 3:54 PM CDT Sexual Orientation Straight 11/16/2022 3: 54 PM CDT Last Filed Vital Signs Vital Sign Reading Time Taken Comments Blood Pressure 106/78 12/06/2023 2:50 PM CDT Pulse 86 12/06/2023 2:50 PM CDT Temperature 37.1 ??C (98.7 ??F) 12/06/2023 2:50 PM CD T Respiratory Rate 20 12/10/2022 2:27 PM CDT Oxygen Saturation 99% 12/06/2023 2:50 PM CDT Inhaled Oxygen Concentration - - Weight 83.7 kg (184 lb 9.6 oz) 12/06/2023 2:50 P M CDT Height 157.5 cm (5' 2 ) 12/06/2023 2:50 PM CDT Body Mass Index 33.76 12/06/2023 2:50 PM CDT Plan of Treatment Not on file Procedures Procedure Name Priority Date/Time Associated Diagnosis Comments SCREENING MAMMOGRAM BILATERAL W SREE Schedule Routine, Read Routine (OP Routine) 06/01/2023 2:45 PM CDT Screening mammogram, encounter for from Last 3 Months or Most Recently Relevant to Health Maintenance Results * Screening Mammogram Bilateral W Sree (06/01/2023 2:45 PM CDT) Anatomical Region Laterality Modality Breast Bilateral Mammography Narrative 2023 10:25 AM CDT Mammogram Technique: Bilateral Digital Breast Tomosynthesis, Bilateral C-view 2D Screening mammogram. ??Views obtained: ??bilateral craniocaudal and bilateral mediolateral oblique. ??Computer Aided Detection was performed. Mammogram Findings: No prior imaging studies are available for comparison. The breasts are almost entirely fatty. There is no suspicious abnormality in either breast. Impression: There is no mammographic evidence of malignancy. Annual screening mammography is recommended. OVERALL FINAL ASSESSMENT: BI-RADS CATEGORY 1: ??Negative. Procedure Note Shannon Saldana MD - 2023 Mammogram Technique: Bilateral Digital Breast Tomosynthesis, Bilateral C-view 2D Screening mammogram. Views obtained: bilateral craniocaudal and bilateral mediolateral oblique. Computer Aided Detection was performed. Mammogram Findings: No prior imaging studies are available for comparison. The breasts are almost entirely fatty. There is no suspicious abnormality in either breast. Impression: There is no mammographic evidence of malignancy. Annual screening mammography is recommended. OVERALL FINAL ASSESSMENT: BI-RADS CATEGORY 1: Negative. us Self Screening Mammogram IMG MAMMO PROCEDURES Fi nal Result from Last 3 Months or Most Recently Relevant to Health Maintenance Insurance [facility] [address] Advance Directives For more information, please contact: [phone] * Full Code (Latest Code Status on File) Date Activated Date Inactivated Comments 12/23/2021 8:04 AM 12/23/2021 4:20 PM Care Teams Engine Boss Relationship Specialty Start Date End Date Supriya Hay PA [address] [place] [address] PCP - General Internal Medicine 02/21/20 Helio Carrera MD [address] [facility] [address] [place] [address] Referring Physician Obstetrics and Gynecology 09/03/21
--- OUTSIDE RECORDS SUMMARY | 2024-04-01 05:51 | XMS_ITS | Encounter Summary ---
Author Organization [facility] Address [address] [place] [address] Care Team Providers Care Platform Worker Name Role Phone Supriya Hay Primary Care Provider +1- [phone] Helio Carrera MD Unavailable +1- [phone] Reason for Visit * Reason Onset Date Comments Appointment Request 02/11/2024 Encounter Details Date Type Department Care Team (Late st Contact Info) Description 02/11/2024 Telephone [facility] Family Medicine [address] [place] [address] Supriya Hay PA [address] [place] [address] Appointment Request Social History Tobacco Use Types Packs/Day Years [...] PM CDT Legal Sex Female 12:02 AM CARDIO TECH Gender Identity Female 11/16/2022 3:54 PM CDT Sexual Orientation Straight 11/16/2022 3: 54 PM CDT documented as of this encounter Miscellaneous Notes * Telephone Encounter - Lena Freitas MA - 02/15/2024 1:29 PM CST Called spoke with patient she is doing much better now and no need for visit. IO TECH * Telephone Encounter - Cait Pino LPN - 02/14/2024 9:01 AM CARDIO TECH Called and LVM for pt to return call. Please transfer through to office. IO TECH * Telephone Encounter - Lena Freitas MA - 02/11/2024 3:01 PM CST Called left message for patient to call office and ask for Lena. IO TECH * Telephone Encounter - Kylah Toussaint - 02/11/2024 2:26 PM CST Appointment Request What visit type does the patient need? Visit Type: Established Patient What is the reason for the visit? ER follow up (went to [place] [facility] week of 01/24/2024) still having symptoms, Vomiting and unable to keep food down, sore throat, fatigue, slight cough What is the reason we were unable to schedule the appointment? Current appointment availability didnot meet patient's need. Patient should be seen as soon possible If applicable, were all members of the patient's PCP care team offered (e.g., nurse practioner(s), physician assistant strength coach(s)) ? N/A Additional Comments: None Does message need to be routed? Yes-Action Needed IO TECH documented in this encounter Plan of Treatment Not on file documented as of this encounter Visit Diagnoses Not on filedocumented in this encounter Care Teams Platform Worker Relationship Specialty Start Date End Date Supriya Hay PA [address] [place] [address] PCP - General Internal Medicine 02/21/20 Helio Carrera MD [address] [place] [address] Referring Physician Obstetrics and Gynecology 09/03/21 documented as of this encounter
--- OUTSIDE RECORDS SUMMARY | 2024-04-01 05:51 | XMS_ITS | Encounter Summary ---
Author Organization [facility] Healthcare Address [address] [place] [address] Care Team Providers Care Manager Garden Name Role Phone Supriya Hay Primary Care Provider +1- [phone] Helio Carrear MD Unavailable [phone] Encounter Details Date Type Department Care Team (Late st Contact Info) Description 09/07/2023 3:10 PM CDT Lab [facility] [address] [place] [id number] Other fatigue; Mixed hyperlipidemia; Diabetes mellitus screening Social History Tobacco Use Types Packs/Day Years [...] more points, staff should administer the PHQ-9) 1 01/13/2023 Personal Safety Answer Date Recorded Getting School Help Needed Not on file 04/04 Comments No Sex and Gender Information Value Date Recorded Sex Assigned at Female 11/16/2022 3:54 PM CDT 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 Gender Identity Female 11/16/2022 3:54 PM CDT Sexual Orientation Straight 11/16/2022 3: 54 PM CDT documented as of this encounter Plan of Treatment Not on file documented as of this encounter Procedures Procedure Name Priority Date/Time Associated Diagnosis Comments EGFR Routine 09/07/2023 3:26 PM CDT Mixed hyperlipidemia DIFFERENTIAL AUTO Routine 09/07/2023 3:2 6 PM CDT Other fatigue CBC WITH AUTO DIFFERENTIAL Routine 09/07/2023 3:26 PM CDT Other fatigue TSH Routine 09/07/2023 3:26 PM CDT Other fatigue HEMOGLOBIN A1C Routine 09/07/2023 3:26 PM CDT Diabetes mellitus screening LIPID PANEL Routine 09/07/2023 3:26 PM CDT Mixed hyperlipidemia COMPREHENSIVE METABOLIC PANEL Routine 09/07/2023 3:26 PM CDT Mixed hyperlipidemia documented in this encounter Results * eGFR (09/07/2023 3:26 PM CDT) eGFR >90 >=60 mL/min/1. 73 m2 Comment: Interpretive Data Reference Interval Normal ?>/= 90 mL/min/1.73m2 Mildly decreased* ? 60 - 89 mL/min/1.73m2 Mildly to moderately decreased ?45 - 59 mL/min/1.73m2 Moderately to severely decreased ??30 - 44 mL/min/1.73m2 Severely decreased ?15 - 29 mL/min/1.73m2 Kidney Failure ?< 15 ??mL/min/1.73m2 *Relative to young adult level Estimated glomerular filtration rate is determined by the 2020 CKD-EPI equation recommended by the National Kidney Foundation (A Unifying Approach to GFR Estimation: Recommendations of the NKF-ASK Task Force on Reassessing the Inclusion of Race in Diagnosing Kidney Disease, JASN 2020). The CKD-EPI equation should not be used for patients with unstable renal function and has not been validated in children and those over 70. Current interpretive data was last reviewed 2021. Blood 09/07/2023 3:26 PM CDT 09/07/2023 4:32 PM CDT us Supriya HERNANDEZ LAB BLOOD ORDERABLES Final Result [facility] [address] [facility] Department [place] [address] * Differential, auto (09/07/2023 3:26 PM CDT) Pathologist [facility] Neutrophil abs 5.3 1.5 - 6.5 K/cumm Imm gran abs 0.0 0.0 - 0.1 K/cumm [facility] Lymphocyte abs 1.6 0.8 - 3.3 K/cumm [facility] Monocyte abs 0.3 0.2 - 0.8 K/cumm [facility] Eosinophil abs 0.1 0.0 - 0.5 K/cumm [facility] Basophil abs 0.0 0.0 - 0.1 K/cumm [facility] Neutrophil pct 72.6 % [facility] Comment: Interpretive Data Percent cell count reference ranges are not reported, since discordance with absolute values may lead to misinterpretation of CBC data. Current Interpretive Data was last revised on 2017. Imm gran pct 0.3 % [facility] Comment: Interpretive Data Percent cell count reference ranges are not reported, since discordance with absolute values may lead to misinterpretation of CBC data. Current Interpretive Data was last revised on 2017. Lymphocyte pct 21.8 % [facility] Comment: Interpretive Data Percent cell count reference ranges are not reported, since discordance with absolute values may lead to misinterpretation of CBC data. Current Interpretive Data was last revised on 2017. Monocyte pct 3.7 % [facility] Comment: Interpretive Data Percent cell count reference ranges are not reported, since discordance with absolute values may lead to misinterpretation of CBC data. Current Interpretive Data was last revised on 2017. Eosinophil pct 1.2 % [facility] Comment: Interpretive Data Percent cell count reference ranges are not reported, since discordance with absolute values may lead to misinterpretation of CBC data. Current Interpretive Data was last revised on 2017. Basophil pct 0.4 % [facility] Comment: Interpretive Data Percent cell count reference ranges are not reported, since discordance with absolute values may lead to misinterpretation of CBC data. Current Interpretive Data was last revised on 2017. Blood 09/07/2023 3:26 PM CDT 09/07/2023 4:39 PM CDT Supriya HERNANDEZ LAB BLOOD ORDERABLES Final Result [place] [id number] [facility] Department [place] [address] * CBC with auto differential (09/07/2023 3:26 PM CDT) WBC 7.3 3.8 - 9.9 K/cumm Hgb 12.6 11.9 - 15.5 g/dL [facility] Hct 38.0 35.6 - 45.5 % [facility] Plt 308 150 - 400 K/cumm [facility] MPV 11.5 9.1 - 12.3 fL [facility] RBC 4.27 3.90 - 5.20 M/cumm [facility] MCV 89.0 81.3 - 96.4 fL [facility] MCH 29.5 27.1 - 33.3 pg [facility] MCHC 33.2 32.3 - 35.7 g/dL [facility] RDW CV 14.3 11.1 - 14.9 % [facility] RDW SD 45.8 35.7 - 48.1 fL [facility] NRBC abs 0.00 0.00 - 0.01 K/cumm [facility] Blood 09/07/2023 3:26 PM CDT 09/07/2023 4:39 PM CDT Supriya HERNANDEZ LAB BLOOD ORDERABLES Final Result [facility] [address] [facility] Department [place] [address] * Comprehensive metabolic panel (09/07/2023 3:26 PM CDT) Sodium 140 135 - 145 mmol/L Potassium, pl 3.7 3.3 - 4.9 mmol/L [facility] Chloride 106 97 - 110 mmol/L [facility] CO2 23 22 - 32 mmol/L [facility] Anion gap 11 2 - 15 mmol/L [facility] BUN 8 6 - 25 mg/dL [facility] Creatinine 0.71 0.60 - 1.10 mg/dL [facility] Glucose 103 70 - 199 mg/dL [facility] Comment: Interpretive Data Fasting glucose >/= 126 mg/dl is diagnostic for diabetes. ?? Fasting is defined as no caloric intake for at least 8 hours. Fasting glucose between 100 mg/dl to 125 mg/dl is diagnostic of prediabetes. In a patient with classic symptoms of hyperglycemia or hyperglycemic crisis, a random glucose >/= 200 mg/dl is diagnostic for diabetes. In the absence of unequivocal hyperglycemia, results should be confirmed by repeat testing. The classification and Diagnosis of Diabetes Diabetes Care 2021; 46: S19-S40. Current interpretive data was last revised 2022. Calcium 8.5 8.5 - 10.3 mg/dL [facility] Bilirubin, total 0.3 0.1 - 1.2 mg/dL [facility] Protein, pl 7.0 6.5 - 8.5 g/dL [facility] Albumin 4.0 3.5 - 5.0 g/dL [facility] Alk phos 76 40 - 130 Units/L [facility] ALT 16 7 - 45 Units/L [facility] AST 15 10 - 45 Units/L [facility] Blood 09/07/2023 3:26 PM CDT 09/07/2023 4:32 PM CDT Supriya HERNANDEZ LAB BLOOD ORDERABLES Final Result Performing Organization Address [facility] de Phone Number [address] [employer] [place] [address] * (ABNORMAL) Hemoglobin A1c (09/07/2023 3:26 PM CDT) [facility] Hgb A1C 5.9(H) 4.0 - 5.6 % Estimated Average Glucose 123 mg/dL [facility] Comment: The ADA recommends reporting an estimated Average Glucose (eAG) with all Hemoglobin A1c results using the equation derived from a study of 507 normal and diabetic adults. ??Minority populations were underrepresented and children were not included. ?? (Diabetes Care 31:1804-8057, 2008). ??The eAG is not equivalent to a fasting glucose. Blood 09/07/2023 3:26 PM CDT 09/07/2023 4:39 PM CDT Supriya HERNANDEZ LAB BLOOD ORDERABLES Final Result Performing Organization Address [facility] de Phone Number [place] [address] [facility] [employer] [place] [address] * Lipid panel (09/07/2023 3:26 PM CDT) [facility] Cholesterol 197 30 - 199 mg/dL Comment: Interpretive Data Ages < or = 19 years ??Acceptable: ? <170 mg/dL ??Borderline high: ??170-199 mg/dL ??High: ? >or= 200 mg/dL Ages > or = 20 years ??Desirable: ?<200 mg/dL ??Borderline high: ??200-239 mg/dL ??High: ? >or= 240 mg/dL Literature References: 1. Expert Panel on Integrated Guidelines for Cardiovascular Health and Risk Reduction in Children and Adolescents. Pediatrics 2011;128:S213 2. NCEP Expert Panel. Circulation 2004;110:227 Current Interpretive Data was last revised on 2017. Triglycerides 85 <=149 mg/dL [facility] Comment: Interpretive Data Ages < or = 9 years ??Acceptable: ? <75 mg/dL ??Borderline high: ??75-99 mg/dL ??High: ? >or= 100 mg/dL Ages 10 to 20 years ??Acceptable: ? <90 mg/dL ??Borderline high: ??90-129 mg/dL ??High: ? >or= 130 mg/dL Ages > or = 20 years ??Desirable: ?<150 mg/dL ??Borderline high: ??150-199 mg/dL ??High: ? 200-499 mg/dL ?Very high: ?? >or= 499 mg/dL Literature References: 1. Expert Panel on Integrated Guidelines for Cardiovascular Health and Risk Reduction in Children and Adolescents. Pediatrics 2011;128:S213 2. NCEP Expert Panel. Circulation 2004;110:227 Current Interpretive Data was last revised on 2017. HDL 52 >=40 mg/dL [facility] Comment: Interpretive Data Ages < or = 19 years ??Acceptable: ? >45 mg/dL ??Borderline low: ?? 40-45 mg/dL ??Low: ? <40 mg/dL Ages > or = 20 years ??Desirable: ?>or= 60 mg/dL ??Low: ? <40 mg/dL Literature References: 1. Expert Panel on Integrated Guidelines for Cardiovascular Health and Risk Reduction in Children and Adolescents. Pediatrics 2011;128:S213 2. NCEP Expert Panel. Circulation 2004;110:227 Current Interpretive Data was last revised on 2017. LDL, calculated 128 <=129 mg/dL [facility] Comment: Interpretive Data Ages < or = 19 years ??Acceptable: ? <110 mg/dL ??Borderline high: ??110-129 mg/dL ??High: ?>or= 130 mg/dL Ages > or = 20 years ??Optimal: ? <100 mg/dL ??Near optimal: ?100-129 mg/dL ??Borderline high: ?? 130-159 mg/dL ??High: ?>160 mg/dL Literature References: 1. Expert Panel on Integrated Guidelines for Cardiovascular Health and Risk Reduction in Children and Adolescents. Pediatrics 2011;128:S213 2. NCEP Expert Panel. Circulation 2004;110:227 Current Interpretive Data was last revised on 2017. Non-HDL Cholesterol 145 mg/dL [facility] Comment: Interpretive Data Ages < or = 19 years ??Acceptable: ?<120 mg/dL ??Borderline high: ??120-144 mg/dL ??High: ?>145 mg/dL Ages > or = 20 years ??When triglycerides are >200 mg/dL, Non-HDL cholesterol is a secondary target of ? therapy with treatment goals that are 30 mg/dL greater than the LDL cholesterol target. ? Literature References: 1. Expert Panel on Integrated Guidelines for Cardiovascular Health and Risk Reduction in Children and Adolescents. Pediatrics 2011;128:S213 2. NCEP Expert Panel. Circulation 2004;110:227 Current Interpretive Data was last revised on 2017. Chol/HDL ratio 4 [facility] Blood 09/07/2023 3:26 PM CDT 09/07/2023 4:32 PM CDT Supriya HERNANDEZ LAB BLOOD ORDERABLES Final Result [facility] [address] [facility] Department of Laboratories [place], [place] [id number] * TSH (09/07/2023 3:26 PM CDT) Thyroid Stimulating Hormone 1.57 0.30 - 4.20 mcIUnit/mL Blood 09/07/2023 3:26 PM CDT 09/07/2023 4:32 PM CDT Supriya HERNANDEZ LAB BLOOD ORDERABLES Final Result [facility] [address] [facility] Department [place] [address] documented in this encounter Visit Diagnoses Diagnosis Other fatigue Mixed hyperlipidemia Diabetes mellitus screening Screening for diabetes mellitus documented in this encounter Care Teams Manager Garden Relationship Specialty Start Date End Date Supriya Hay PA [address] [facility] [address] [place] [address] PCP - General Internal Medicine 02/21/20 Helio Carrera MD [address] [facility] [address] [place] [address] Referring Physician Obstetrics and Gynecology 09/03/21 documented as of this encounter
--- OUTSIDE RECORDS SUMMARY | 2024-04-01 05:51 | XMS_ITS | Encounter Summary ---
Author Organization [facility] Address [address] [place] [address] Phone Care Team Providers Care Grounds Person Name Role Phone Supriya Hay Primary Care Provider +1- [phone] Helio Carrera MD Unavailable [phone]- [phone] Encounter Details Date Type Department Care Team (Late st Contact Info) Description 11/10/2023 Orders Only [facility] Obstetrics and Gynecology [address] [facility] 7th [address] [place] [address] Percy Hutchinson MD [address] [facility] [address] [id number] [place], [place] [id number] Vitamin D deficiency (Primary Dx); Intramural leiomyoma of uterus; Research study patient Social History Tobacco Use Types Packs/Day Years [...] PHQ-2 Answer Date Recorded PHQ-2 Total Score 0 09/27/2023 Personal Safety Answer Date Recorded Getting School Help Needed Not on file 04/04 Comments No Sex and Gender Information Value Date Recorded Sex Assigned at Female 11/16/2022 3:54 PM CDT 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 Gender Identity Female 11/16/2022 3:54 PM CDT Sexual Orientation Straight 11/16/2022 3: 54 PM CDT documented as of this encounter Ordered Prescriptions Prescription Sig Dispense Quantity Refills Last Filled Start Date End Date cholecalciferol (VITAMIN D-3) 25,000 unit capsuleIndications :Vitamin D Deficiency,Vitamin D Deficiency (High Dose Therapy) Take 1 capsule (25,000 Units total) by mouth once a week for 6 doses 6 capsule 11/10/2023 documented in this encounter Progress Notes * Percy Hutchinson MD - 11/10/2023 3:36 PM CDT [facility] increased dose of 25,000iu (625 mcg) weekly for 6weeks as you suggested and then resume 1,000iu. Sponsor is okay with her returning for an unscheduled visit to recheck levels a week or 2 after completion of 25,000iu. Rx sent. [id number] - [place], [place] - [facility] [address] [facility] & [place] [id number], [facility] [address] documented in this encounter Plan of Treatment Not on file documented as of this encounter Visit Diagnoses Diagnosis Vitamin D deficiency- Primary Intramural leiomyoma of uterus Research study patient documented in this encounter Care Teams Grounds Person Relationship Specialty Start Date End Date Supriya Hay PA [address] [facility] [address] [place] [address] PCP - General Internal Medicine 02/21/20 Helio Carrera MD [address] [place] [address] Referring Physician Obstetrics and Gynecology 09/03/21 documented as of this encounter
--- OUTSIDE RECORDS SUMMARY | 2024-04-01 05:51 | XMS_ITS | Encounter Summary ---
Author Organization [facility] Address [address] [place] [address] Phone Care Team Providers Care Slip Mixer Name Role Phone Supriya Hay Primary Care Provider +1- [phone] Helio Carrera MD Unavailable Reason for Visit * Reason Comments Injections Blood draw Encounter Details Date Type Department Care Team (Latest Contact Info) Description 12/30/2023 3:30 PM CDT Procedure visit [facility] Obstetrics and Gynecology [address] [place] [address] Health 7th [place] [address] Research study patient (Primary Dx) Social History Tobacco Use Types Packs/Day Years [...] PM CDT 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 x1 tube collected with x1 stick. Patient tolerated well. x1 tube given to research coordinator. documented in this encounter Plan of Treatment Not on file documented as of this encounter Visit Diagnoses Diagnosis Research study patient- Primary documented in this encounter Care Teams Slip Mixer Relationship Specialty Start Date End Date Supriya Hay PA [address] [facility] [address] [place] [address] PCP - General Internal Medicine 02/21/20 Helio Carrera MD [address] [place] [address] Referring Physician Obstetrics and Gynecology 09/03/21 documented as of this encounter
--- OUTSIDE RECORDS SUMMARY | 2024-04-01 05:51 | XMS_ITS | Encounter Summary ---
Author Organization [facility] Healthcare Address [address] [place] [address] Care Team Providers Care Torpedoman'S Mate Name Role Phone Supriya Hay Primary Care Provider +1- [phone] Helio Carrera MD Unavailable [phone]- [phone] Encounter Details Date Type Department Care Team (Late st Contact Info) Description 01/18/2024 Telephone [facility] Medical Group Family Medicine [address] [facility] [address] [place] [address] Supriya Hay PA [address] [facility] [address] [place] [address] Social History Tobacco Use Types Packs/Day Years [...] PM CDT 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 Please transfer to Deyanira. * Telephone Encounter - Kaylah Schreiber - 01/18/2024 9:26 AM CDT Pt was seen at [facility] ER on 01/15/24 for: Nausea/Vomiting Discharged home with orders for PRN Zofran and Tessalon Perls for treatment of viral illness. Staff will f/u with pt. documented in this encounter Plan of Treatment Not on file documented as of this encounter Visit Diagnoses Not on filedocumented in this encounter Care Teams Torpedoman'S Mate Relationship Specialty Start Date End Date Supriya Hay PA [address] [facility] [address] [place] [address] PCP - General Internal Medicine 02/21/20 Helio Carrera MD [address] [place] [address] Referring Physician Obstetrics and Gynecology 09/03/21 documented as of this encounter
--- OUTSIDE RECORDS SUMMARY | 2024-04-01 05:51 | XMS_ITS | Clinical Summary ---
Author Organization [facility] at the [facility] Office Center Address [address] [place] [address] Care Team Providers Care Seafood Clerk Name Role Phone Supriya Hay Primary Care Provider [phone] Helio Carrera MD Unavailable Allergies Active Allergy Reactions Criticality Noted Date Comments Clindamycin Shortness of breath High 05/15/2016 Sulfa (Sulfonamide Antibiotics) Itching Low 04/23 Medications dicyclomine (BENTYL) 20 mg tablet Take 1 tablet (20 mg total) by mouth every 6 (six) hours Active INV-[facility] relugolix/E2/SHIVA (/MVT-6 ) 40 mg/1 mg/0.5 mg tablet Take 1 [...] share as well as heart strings in [place] for support. Discussed medications including risks benefits [...] 01/24/2023 Assessment & Plan (01/24/2023 9:58 PM FILE CONVERSION OPERATOR): Start antibiotic, antihistamine (Claritin OR Zyrtec), [...] She has had a negative DVT at [facility]. She has absolutely no swelling no [...] scheduled. Assessment & Plan (02/14/2022 3:12 PM FILE CONVERSION OPERATOR): Workup is negative. Suspect benign lesion [...] by Radiology. Will follow-up pending these results. Prefers [facility] Chronic pain of left knee 06/04/2020 Left leg pain 05/24/2020 Assessment & Plan (05/24/2020 8:28 PM FILE CONVERSION OPERATOR): Persistent pain after a fall about [...] needed. Assessment & Plan (01/24/2023 9:57 PM FILE CONVERSION OPERATOR): Encouraged patient to follow low fat/low chol diet like the Mediterranean diet. Increase good fats in the diet. Increase exercise. Monitor labs as needed. Assessment & Plan (05/24/2020 8:30 PM FILE CONVERSION OPERATOR): Encouraged patient to follow fat/low chol diet like the Mediterranean diet. Increase good fats in the diet. Increase exercise. Monitor labs as needed. If not enough change with diet/exercise will need to start statin due to LDL. Migraine without aura and wi thout status migrainosus, not intractable 03/01/2020 Assessment & Plan (05/24/2020 8:29 PM FILE CONVERSION OPERATOR): Continue with the Maxalt. Continue to monitor as was difficult to see pattern with this fall as it is negatively affecting her sleep patterns. Mobic may help is tension component Assessment & Plan (03/01/2020 10:07 PM FILE CONVERSION OPERATOR): Discussed possible triggers. Start Maxalt prn. Get regular rest/exercise. Check labs. Bring diary to next visit with VALDE[facility]. Chronic midline low back pain without sciatica 1 05/02/2019 Assessment & Plan (03/01/2020 10:15 PM FILE CONVERSION OPERATOR): Encouraged exercise, stretching, walking and weight [...] provided. Assessment & Plan (05/23/2020 2:13 PM FILE CONVERSION OPERATOR): Obesity is unchanged. Discussed the patient's BMI. The BMI is above average. BMI management plan is completed. BMI Follow-up includes: nutrition counseling, exercise counseling and education provided. BMI 34.0-34.9,adult 05/23/2020 01/23/20 22 Assessment & Plan (12/03/2021 8:20 PM CDT): Discussed the patient's BMI. The BMI is above average. BMI management plan is completed. BMI Follow-up includes: nutrition counseling, exercise counseling and education provided. Assessment & Plan (05/23/2020 2:13 PM FILE CONVERSION OPERATOR): Obesity is unchanged. Discussed the patient's BMI. The BMI is above average. BMI management plan is completed. BMI Follow-up includes: nutrition counseling, exercise counseling and education provided. Diabetes mellitus screening 03/01/2020 10/05/2023 Assessment & Plan (01/24/2023 9:57 PM FILE CONVERSION OPERATOR): Check labs Assessment & Plan (03/01/2020 10:06 PM FILE CONVERSION OPERATOR): Check labs Lipid screening 03/01/2020 10/05/2023 Assessment & Plan (01/24/2023 9:57 PM FILE CONVERSION OPERATOR): Check labs Assessment & Plan (03/01/2020 10:06 PM FILE CONVERSION OPERATOR): Check labs Other fatigue 03/01/2020 10/05/2023 Assessment & Plan (01/24/2023 9:57 PM FILE CONVERSION OPERATOR): Probably multifactorial. Check labs and followup to re-evaluate Assessment & Plan (03/01/2020 10:07 PM FILE CONVERSION OPERATOR): Probably multifactorial. Check labs and followup to re-evaluate Annual physical exam 03/01/2020 021 Assessment & Plan (03/01/2020 10:06 PM FILE CONVERSION OPERATOR): Encouraged healthy lifestyle, good nutrition and exercise. Encouraged Calcium and Vitamin D and weight bearing exercise for bone health. Reviewed immunizations Reviewed age appropirate screenings. BMI 31.0-31.9,adult 02/28/2020 05/24/19 21 Assessment & Plan (02/28/2020 2:24 PM FILE CONVERSION OPERATOR): Obesity is unchanged. Discussed the patient's BMI. The BMI is above average. BMI management plan is completed. BMI Follow-up includes: nutrition counseling, exercise counseling and education provided. Obesity (BMI 30-39.9) 02/28/20202020 Assessment & Plan (03/01/2020 10:06 PM FILE CONVERSION OPERATOR): Obesity is unchanged. Discussed the patient's BMI. The BMI is above average. BMI management plan is completed. BMI Follow-up includes: nutrition counseling, exercise counseling and education provided Need for immunization against influenza 02/28/2020 12/03/2021 Assessment & Plan (03/01/2020 10:06 PM FILE CONVERSION OPERATOR): Encouraged vaccine. Reviewed risks/ benefits. Patient refuses and accepts risks. Encounters Date Type Department Care Team Description 03/29/[address] [place] [phone] Supriya Hay PA 02/11/2024 Telephone [facility] [address] [place] [address] [address] [place] [phone] Supriya Hay PA Appointment Request 01/18/[address] [place] [phone] Supriya Hay PA from Last 3 Months Immunizations Name Administration Dates Next Due Influenza, Unspecified 03/22/2023(Deferr ed: Patient Refused),03/22/2022(Deferred: Patient Refused),03/12/2022(Deferred: Patient Refused),03/22/2021(Deferred: Patient Refused),02/19/2019(Deferred: Patient Refused) MMR 05/21/1994 Td, adsorbed 12/03/1995 Surgical History Surgery Date Site/Laterality Comments TONSILLECTOMY 03/22/2005 - 03/21/2006 HERNIA REPAIR 03/22/2016 - 03/21/2017 CHOLECYSTECTOMY 03/22/2016 - 03/21/2017 HERNIA MESH REMOVAL 03/22/2016 - 03/21/2017 BLADDER SURGERY 03/22/2018 - 03/21/2019 Medical History Medical History Date Comments Anemia Lumbar pain with radiation down left leg 020 Family History Medical History Relation Name Comments Heart disease Father Hypertension Father Prostate cancer Maternal Grandfather Cataracts Maternal Grandmother Diabetes Maternal Grandmother Glaucoma Maternal Grandmother Heart disease Maternal Grandmother Arthritis Mother Diabetes Mother Hyperlipidemia Mother Thyroid disease Mother Prostate cancer Paternal Grandfather Arthritis Paternal Grandmother Glaucoma Paternal Grandmother Asthma Son Relation Name Status Comments Father Alive Maternal Grandfather Maternal Grandmother Mother Alive Paternal Grandfather Paternal Grandmother Son Alive Social History Tobacco Use Types Packs/Day [...] PM CDT Legal Sex Female 12:02 AM FILE CONVERSION OPERATOR Gender Identity Female 11/16/2022 3:54 PM CDT Sexual Orientation Straight 11/16/2022 3: 54 PM CDT Obstetrics History Para Term AB IAB SAB Ectopic Multiple Livin g Live Births 1 1 1 1 1 Date Outcome GA Total Labor Labor/2nd/3rd Weight Sex Type Anes PTL Mandy A1 A5 Name Clin 2003 Term Living Last Filed Vital Signs Vital Sign Reading Time Taken Comments Blood Pressure 106/78 12/06/2023 2:50 PM CDT Pulse 86 12/06/2023 2:50 PM CDT Temperature 37.1 ??C (98.7 ??F) 12/06/2023 2:50 PM CD T Respiratory Rate 20 12/10/2022 2:27 PM CDT Oxygen Saturation 99% 12/06/2023 2:50 PM CDT Inhaled Oxygen Concentration - - Weight 83.7 kg (184 lb 9.6 oz) 12/06/2023 2:50 PM CDT Height 157.5 cm (5' 2 ) 12/06/2023 2:50 PM CDT Body Mass Index 33.76 12/06/2023 2:50 PM CDT Plan of Treatment Health Maintenance Due Date Last Done Comments Cervical Cancer Screening 1981 Hepatitis C Screening 1981 Varicella Vaccines (1 of 2 - 13+ 2-dose series) 1994 DTaP/Tdap/Td Vaccine (1 - Tdap) 12/04/1995 12/03/1995 Hepatitis B Screening 06/03/1999 Regular Well Visit/Exam 18-64 06/03/1999 Influenza Vaccine (#1) 2023 Breast Cancer Screening-Mammogram 05/31/2024 06/01/2023, 10/29/2022, 09/03/2021 Depression Screening 12/05/2024 12/06/2023, 09/27/2023, 01/13/2023, Additional history exists HPV Vaccines Aged Out No longer eligi ble based on patient's age to complete this topic Pneumococcal vaccine <65 Aged Out No longer eligible based on patient's age to complete this topic Procedures Procedure Name Priority Date/Time Associated Diagnosis [...] Most Recently Relevant to Health Maintenance Insurance [facility] Advance Directives For more information, please contact: [phone] * Full Code (Latest Code Status on File) Date Activated Date Inactivated Comments 12/23/2021 8:04 AM 12/23/2021 4:20 PM Care Teams Seafood Clerk Relationship Specialty Start Date End Date Supriya Hay PA [address] [facility] [address] [place] [address] PCP - General Internal Medicine 02/21/20 Helio Carrera MD [address] [facility] [address] [place] [address] Referring Physician Obstetrics and Gynecology 09/03/21
--- OUTSIDE RECORDS SUMMARY | 2024-04-01 05:51 | XMS_ITS | Encounter Summary ---
Author Organization [facility] Healthcare Address [address] [place] [address] Care Team Providers Care Construction Coordinator Name Role Phone Supriya Hay Primary Care Provider [phone]- [phone] Helio Carrera MD Unavailable [phone] Reason for Referral * Consultation (Routine) - Closed Specialty Diagnoses / Procedures Referred By Melissa swanson Referred To Contact Otolaryngology Diagnoses Soreness of tongue Supriya Hay PA [address] [facility] [address] [place] [address] Phone: tel: fax: Tracey Wilkes MD [address] [place] [address] Phone: tel: fax: Referral ID Status Reason Start Date Expiration Date V isits Requested Visits Authorized [id number] Closed Specialty Services Required 12/06/2023 01/04/2025 1 1 Question Answer Please select the performing region: [facility] (All Locations) [[id number]] To provider: TRACEY WILKES [[id number]] # of visits: 1 Comments Sore tongue for 3-4 months. Reason for Visit * Reason Comments Follow-up Patient is here to f ollow up on grief. Earache Left ear pain. tongue Red bumps on tip of tongue. Encounter Details Date Type Department Care Team (Late st Contact Info) Description 12/06/2023 2:30 PM CDT Office Visit [facility] [address] [place] [phone] Supriya Hay PA [address] [place] [address] Left ear pain (Primary Dx); Soreness of tongue; Pre-diabetes; Mixed hyperlipidemia; Fatigue, unspecified type; BMI 33.0-33.9,adult; Grief; Obesity (BMI 30.0-34.9) Social History Tobacco Use Types Packs/Day Years [...] PM CDT Legal Sex Female 12:02 AM DETAIL TECHNICIAN Gender Identity Female 11/16/2022 3:54 PM CDT Sexual Orientation Straight 11/16/2022 3: 54 PM CDT documented as of this encounter Last Filed Vital Signs Vital Sign Reading Time Taken Comments Blood Pressure 106/78 12/06/2023 2:50 PM CDT Pulse 86 12/06/2023 2:50 PM CDT Temperature 37.1 ??C (98.7 ??F) 12/06/2023 2:50 PM CD T Respiratory Rate - - Oxygen Saturation 99% 12/06/2023 2:50 PM CDT Inhaled Oxygen Concentration - - Weight 83.7 kg (184 lb 9.6 oz) 12/06/2023 2:50 P M CDT Height 157.5 cm (5' 2 ) 12/06/2023 2:50 PM CDT Body Mass Index 33.76 12/06/2023 2:50 PM CDT documented in this encounter Patient Instructions * Attachments The following attachments cannot be sent through Care Everywhere. 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 Subjective/Objective Patient ID: Aziza Lockhart is a 43 y.o. female. Chief Complaint Follow-up (Patient is here to follow up on grief. ), Earache (Left ear pain.), and tongue (Red bumps on tip of tongue.) HPI Patient presents to followup grief May - cousin and brother Sept brother in law Fiance this last few months. Increased grief. Hasn't considerd counseling. Feels like she is ok without medication. Tried to get in [facility]. My staff called and there was confusion regarding paperwork so she will reontact them. Patient feels like she has cold symptoms and left ear pain has been using Mucinex, Day/night quil, Flonase Patient states the tip of her tongue has been painful for months. She feels like it is red. Would like to see ENT. ? GERD Feels like she has acid in the nhight and is nauseated almost every morning Review of Systems See HPI Vitals: 12/06/23 1450 BP: 106/78 BP Location: Left arm Patient Position: Sitting Pulse: 86 Temp: 37.1 ??C (98.7 ??F) SpO2: 99% Weight: 83.7 kg (184 lb 9.6 oz) Height: 157.5 cm (5' 2 ) Physical Exam Vitals and nursing note reviewed. Constitutional: Appearance: She is well-developed. HENT: Head: Normocephalic and atraumatic. Eyes: Comments: Pupils are equal Cardiovascular: Rate and Rhythm: Normal rate and regular rhythm. Heart sounds: No murmur heard. Pulmonary: Effort: Pulmonary effort is normal. Breath sounds: Normal breath sounds. Abdominal: Palpations: Abdomen is soft. Tenderness: There is no abdominal tenderness. Skin: General: Skin is warm and dry. Findings: No rash. Neurological: Mental Status: She is alert and oriented to person, place, and time. Assessment/Plan Diagnoses and all orders for this visit: Left ear pain (H92.02) (Primary) Assessment & Plan: Patient notes increased left ear pain. On exam it is mildly injected but may be heading towards an infection. Will start Amoxil 500 mg t.i.d. times 10 days. Follow up if symptoms do not resolve. May also start antihistamine as well as Flonase and see if this helps with her symptoms. Soreness of tongue (K14.6) Assessment & Plan: Patient has noticed significant soreness of her tongue. Symptoms make me wonder could this be reflux and will treat it with a PPI and follow-up in 6-8 weeks or so. Also check labs including a B12. Ifsymptoms persist may need to see ENT to rule out other causes. Orders: - Ambulatory referral to ENT; Future - Vitamin B12; Future Pre-diabetes (R73.03) Assessment & Plan: Pre-diabetes/hyperglycemia is a precursor to Dm. Stressed importance of working on diet (decrease your simple sugars and one carbohydrate with each meal) and increase you exercise to achieve weight loss and this will help prevent you from progressing to diabetes. Orders: - Hemoglobin A1c; Future Mixed hyperlipidemia (E78.2) Assessment & Plan: Encouraged patient to follow low fat/low chol diet like the Mediterranean diet. Increase good fats in the diet. Increase exercise. Monitor labs as needed. Orders: - Comprehensive metabolic panel; Future Fatigue, unspecified type (R53.83) Assessment & Plan: Probably multifactorial. Check labs and followup to re-evaluate Orders: - CBC with auto differential; Future - TSH; Future BMI 33.0-33.9,adult (Z68.33) Assessment & Plan: Discussed the patient's BMI. The BMI is above average. BMI management plan is completed. BMI Follow-up includes: nutrition counseling, exercise counseling and education provided. Grief (F43.21) Assessment & Plan: Patient has experienced multiple deaths this year. Still strongly encouraged counseling. Provided information again for [facility] and my staff contacted them to clear things up and provided the number for patient to call for immediate help. She is not interested in medication at this time. Will see how counseling goes Obesity (BMI 30.0-34.9) (E66.9) Assessment & Plan: Discussed the patient's BMI. The BMI is above average. BMI management plan is completed. BMI Follow-up includes: nutrition counseling, exercise counseling and education provided. Other orders - omeprazole (PriLOSEC) 40 mg capsule; Take 1 capsule (40 mg total) by mouth daily - amoxicillin (AMOXIL) 500 mg tablet/capsule; Take 1 tablet/capsule (500 mg total) by mouth 3 (three) times a day for 10 days *This note is dictated using Familink voice recognition software, variances in spelling and vocabulary are possible and unintentional.* Supriya Hay PA-C documented in this encounter Miscellaneous Notes * Assessment & Plan Note - Supriya Hay PA - 12/19/2023 8:35 PM CDT Associated Problem(s): Left ear pain Patient notes increased left ear pain. On exam it is mildly injected but may be heading towards an infection. Will start Amoxil 500 mg t.i.d. times 10 days. Follow up if symptoms do not resolve. May also start antihistamine as well as Flonase and see if this helps with her symptoms. * Assessment & Plan Note - Supriya Hay PA - 12/19/2023 8:34 PM CDT Associated Problem(s): Soreness of tongue Patient has noticed significant soreness of her tongue. Symptoms make me wonder could this be reflux and will treat it with a PPI and follow-up in 6-8 weeks or so. Also check labs including a B12. Ifsymptoms persist may need to see ENT to rule out other causes. * Assessment & Plan Note - Supriya Hay PA - 12/19/2023 8:33 PM CDT Associated Problem(s): Fatigue Probably multifactorial. Check labs and followup to re-evaluate * Assessment & Plan Note - Supriya Hay PA - 12/19/2023 8:33 PM CDT Associated Problem(s): Pre-diabetes Pre-diabetes/hyperglycemia is a precursor to Dm. Stressed importance of working on diet (decrease your simple sugars and one carbohydrate with each meal) and increase you exercise to achieve weight loss and this will help prevent you from progressing to diabetes. * Assessment & Plan Note - Supriya Hay PA - 12/19/2023 8:33 PM CDT Associated Problem(s): Mixed hyperlipidemia Encouraged patient to follow low fat/low chol diet like the Mediterranean diet. Increase good fats in the diet. Increase exercise. Monitor labs as needed. * Assessment & Plan Note - Supriya Hay PA - 12/19/2023 8:33 PM CDT Associated Problem(s): Grief Patient has experienced multiple deaths this year. Still strongly encouraged counseling. Provided information again for [facility] and my staff contacted them to clear things up and provided the number for patient to call for immediate help. She is not interested in medication at this time. Will see how counseling goes * Assessment & Plan Note - Deyanira Coronel MA - 12/06/2023 2:56 PM CDT Associated Problem(s): Obesity (BMI 30.0-34.9) Discussed the patient's BMI. The BMI is above average. BMI management plan is completed. BMI Follow-up includes: nutrition counseling, exercise counseling and education provided. * Assessment & Plan Note - Deyanira Coronel MA - 12/06/2023 2:56 PM CDT Associated Problem(s): BMI 33.0-33.9,adult Discussed the patient's BMI. The BMI is above average. BMI management plan is completed. BMI Follow-up includes: nutrition counseling, exercise counseling and education provided. documented in this encounter Plan of Treatment Scheduled Orders Name Type Priority Associated Diagnoses Orde r Schedule CBC with auto differential Lab Routine Fatigue, unspecified type Expected: 12/06/2023, Expires: 12/05/2024 Comprehensive metabolic panel Lab Routine Mixed hyperlipidemia Expected: 12/06/2023, Expires: 12/05/2024 Hemoglobin A1c Lab Routine Pre-diabetes Expected: 12/06/2023, Expires: 12/05/2024 TSH Lab Routine Fatigue, unspecified type Expected: 12/06/2023, Expires: 12/05/2024 Vitamin B12 Lab Routine Soreness of tongue Expected: 12/06/2023, Expires: 12/05/2024 Scheduled Referrals Name Type Priority Associated Diagnoses Order Schedule Ambulatory referral to ENT Outpatient Referral Routine Soreness of tongue Expected: 12/20/2023 (Approximate), Expires: 12/05/2024 documented as of this encounter Visit Diagnoses Diagnosis Left ear pain- Primary Unspecified otalgia Soreness of tongue Glossodynia Pre-diabetes Other abnormal glucose Mixed hyperlipidemia Fatigue, unspecified type BMI 33.0-33.9,adult Grief Adjustment disorder with depressed mood Obesity (BMI 30.0-34.9) documented in this encounter Care Teams Construction Coordinator Relationship Specialty Start Date End Date Supriya Hay PA [address] [place] [address] PCP - General Internal Medicine 02/21/20 Helio Carrera MD [address] [place] [address] Referring Physician Obstetrics and Gynecology 09/03/21 documented as of this encounter
--- OUTSIDE RECORDS SUMMARY | 2024-04-01 05:51 | XMS_ITS | Encounter Summary ---
Author Organization [facility] Healthcare Address [address] [place] [address] Care Team Providers Care Outbound Call Center Representative Name Role Phone Supriya Hay Primary Care Provider [phone]- [phone] Helio Carrera MD Unavailable [phone] Reason for Visit * Reason Comments Follow-up Pt would like to dis cuss recent labs and an ongoing non-productive cough x2 mos, would like to discuss current meds. Pt would like to discuss edema, has family hx of Hypotension. Pt is having trouble sleeping due to grief and takes OTC sleep aids. Encounter Details Date Type Department Care Team (Late st Contact Info) Description 09/27/2023 2:00 PM CDT Office Visit 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 Gender Identity Female 11/16/2022 3:54 PM CDT Sexual Orientation Straight 11/16/2022 3: 54 PM CDT documented as of this encounter Last Filed Vital Signs Vital Sign Reading Time Taken Comments Blood Pressure 128/70 09/27/2023 2:00 PM CDT Pulse 71 09/27/2023 2:00 PM CDT Temperature 37.2 ??C (98.9 ??F) 09/27/2023 2:00 PM C DT Respiratory Rate - - Oxygen Saturation 98% 09/27/2023 2:00 PM CDT Inhaled Oxygen Concentration - - Weight 87.5 kg (193 lb) 09/27/2023 2:00 PM CDT Height 157.5 cm (5' 2 ) 09/27/2023 2:00 PM CDT Body Mass Index 35.3 09/27/2023 2:00 PM CDT documented in this encounter Patient Instructions * Patient Instructions* Supriya Hay PA - 09/27/2023 2:00 PM CDT Images from the original note were not included. Start antihistamine (Claritin OR Zyrtec), Mucinex 12hour and Steroid nasal spray (Flonase). Push fluids. Rest. Supportive care. If sxs worsen or don\'t improve, pt is to followup in the office. 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 This meal plan may provide several health benefits. These include losing or maintaining weight, and decreasing blood pressure, blood sugar, and cholesterol levels. It may also help protect against certain health conditions such as heart disease, cancer, type 2 diabetes, and Alzheimer disease. Work with a dietitian to develop a meal plan that is right for you. Foods to include in the Mediterranean diet: Include fruits and vegetables in each meal. Eat a variety of fresh fruits and vegetables. Choose whole grains every day. These foods include whole-grain breads, pastas, and cereals. It alsoincludes brown rice, quinoa, and millet. Use unsaturated fats instead of saturated fats. Cook with olive or canola oil. Limit saturated fats, such as butter, margarine, and shortening. Saturated fat is an unhealthy fat that can increase your cholesterol levels. Choose plant foods, poultry, and fish as your main sources of protein. Eat plant-based foods that provide protein, such as lentils, beans, chickpeas, nuts, and seeds. Choose mostly plant-based foods in place of meat on most days of the week. Eat protein foods high in omega-3 fats. Fish high in omega-3 fats include salmon, trout, and tuna. Include these types of fish 1 or 2 times each week. Limit fish high in mercury, such as shark, swordfish, tilefish, and marvel mackerel. Rodman-3 fats are also found in walnuts and flaxseed. Choose poultry (chicken or turkey) without skin instead of red meat. Red meat is high in saturated fat. Limit eggs and high-fat meats, such as cyr, sausage, and hot dogs. Choose low-fat dairy foods such as nonfat or 1% milk, or low-fat almond, cashew, or soy milk. Otherexamples include low-fat cheese, yogurt, and cottage cheese. Limit sweets. Limit your intake of high-sugar foods, such as soda, desserts, and candy. Talk to your healthcare provider about alcohol. Studies have shown that moderate intake of wine mayreduce the risk of heart disease. A moderate amount of wine is 1 serving for women and men 65 yearsand older each day. Two servings is recommended for men 21 to 64 years of age each day. A serving of wine is 5 ounces. Other things you need to know if you follow the Mediterranean diet: Include foods high in iron and vitamin C. Plant-based foods that are high in iron include spinach, beans, tofu, and artichoke. Eat a serving of vitamin C with any iron-rich food to help your body absorb more iron. Examples include oranges, strawberries, cantaloupe, broccoli, and yellow peppers. Get regular physical activity. The Mediterranean diet will have the most benefit if you get regularphysical activity. Get 30 minutes of physical activity at least 5 days a week. Choose physical activities that increase your heart rate. Examples include walking, hiking, swimming, and riding a bike.Ask your healthcare provider about the best exercise plan for you. ?? Copyright [employer] 2021 Information is for End User's use only and may not be sold, redistributed or otherwise used for commercial purposes. All illustrations and images included in CareNotes?? are the copyrighted property of [employer]. or [employer] The above information is an welfare aide only. It is not intended as medical advice for individual conditions or treatments. Talk to your doctor, nurse or pharmacist before following any medical regimen to see if it is safe and effective for you. 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 This meal plan may provide several health benefits. These include losing or maintaining weight, and decreasing blood pressure, blood sugar, and cholesterol levels. It may also help protect against certain health conditions such as heart disease, cancer, type 2 diabetes, and Alzheimer disease. Work with a dietitian to develop a meal plan that is right for you. Foods to include in the Mediterranean diet: Include fruits and vegetables in each meal. Eat a variety of fresh fruits and vegetables. Choose whole grains every day. These foods include whole-grain breads, pastas, and cereals. It alsoincludes brown rice, quinoa, and millet. Use unsaturated fats instead of saturated fats. Cook with olive or canola oil. Limit saturated fats, such as butter, margarine, and shortening. Saturated fat is an unhealthy fat that can increase your cholesterol levels. Choose plant foods, poultry, and fish as your main sources of protein. Eat plant-based foods that provide protein, such as lentils, beans, chickpeas, nuts, and seeds. Choose mostly plant-based foods in place of meat on most days of the week. Eat protein foods high in omega-3 fats. Fish high in omega-3 fats include salmon, trout, and tuna. Include these types of fish 1 or 2 times each week. Limit fish high in mercury, such as shark, swordfish, tilefish, and marvel mackerel. Rodman-3 fats are also found in walnuts and flaxseed. Choose poultry (chicken or turkey) without skin instead of red meat. Red meat is high in saturated fat. Limit eggs and high-fat meats, such as cyr, sausage, and hot dogs. Choose low-fat dairy foods such as nonfat or 1% milk, or low-fat almond, cashew, or soy milk. Otherexamples include low-fat cheese, yogurt, and cottage cheese. Limit sweets. Limit your intake of high-sugar foods, such as soda, desserts, and candy. Talk to your healthcare provider about alcohol. Studies have shown that moderate intake of wine mayreduce the risk of heart disease. A moderate amount of wine is 1 serving for women and men 65 yearsand older each day. Two servings is recommended for men 21 to 64 years of age each day. A serving of wine is 5 ounces. Other things you need to know if you follow the Mediterranean diet: Include foods high in iron and vitamin C. Plant-based foods that are high in iron include spinach, beans, tofu, and artichoke. Eat a serving of vitamin C with any iron-rich food to help your body absorb more iron. Examples include oranges, strawberries, cantaloupe, broccoli, and yellow peppers. Get regular physical activity. The Mediterranean diet will have the most benefit if you get regularphysical activity. Get 30 minutes of physical activity at least 5 days a week. Choose physical activities that increase your heart rate. Examples include walking, hiking, swimming, and riding a bike.Ask your healthcare provider about the best exercise plan for you. ?? Copyright [employer] 2021 Information is for End User's use only and may not be sold, redistributed or otherwise used for commercial purposes. All illustrations and images included in CareNotes?? are the copyrighted property of [employer]. or [employer] The above information is an welfare aide only. It is not intended as medical advice for individual conditions or treatments. Talk to your doctor, nurse or pharmacist before following any medical regimen to see if it is safe and effective for you. documented in this encounter Progress Notes * Supriya Hay PA - 09/27/2023 2:00 PM CDT Subjective/Objective Patient ID: Aziza Lockhart is a 43 y.o. female. Chief Complaint Follow-up (Pt would like to discuss recent labs and an ongoing non-productive cough x2 mos, would like to discuss current meds. Pt would like to discuss edema, has family hx of Hypotension. Pt is having trouble sleeping due to grief and takes OTC sleep aids.) HPI Patient presents to followup chronic concerns. Patient will have LE swelling. Notes it is related at times to what she eats/salt. Encouraged dietary changes and will monitor NEck pain from breast size/weight 38F size. Uses thick straps and has indentions. May - cousin and brother Sept brother in law Fiance this last few months. Increased grief. Hasn't considerd counseling. Feels like she is ok without medication. Lab Results Component Value Date TSH 1.57 09/07/2023 Lab Results Component Value Date CHOL 197 09/07/2023 CHOL 202 (H) 04/05/2020 CHOL 220 (H) 06/29/2018 Lab Results Component Value Date HDL 52 09/07/2023 HDL 49 (L) 04/05/2020 HDL 54 06/29/2018 Lab Results Component Value Date LDLCALC 128 09/07/2023 LDLCALC 150 (H) 06/29/2018 LDLCALC 128 10/08/2014 LDL 137 (H) 04/05/2020 Lab Results Component Value Date TRIG 85 09/07/2023 TRIG 67 04/05/2020 TRIG 81 06/29/2018 No results found for: POCCHDLR No results found for: POCNONHDL No results found for: POCCHLPL Lab Results Component Value Date WBC 7.3 09/07/2023 HGB 12.6 09/07/2023 HCT 38.0 09/07/2023 MCV 89.0 09/07/2023 LABPLAT 308 09/07/2023 Chemistry Lab Results Component Value Date SODIUM 140 09/07/2023 POTASSIUM 3.7 09/07/2023 CHLORIDE 106 09/07/2023 CO2 23 09/07/2023 ANIONGAP 11 09/07/2023 BUNSER 8 09/07/2023 CREATININE 0.71 09/07/2023 GLUCOSE 103 09/07/2023 CALCIUM 8.5 09/07/2023 BILITOT 0.3 09/07/2023 PROTEIN 6.8 04/05/2020 ALBUMIN 4.0 09/07/2023 GFRNAA >90 09/07/2023 ALKPHOS 76 09/07/2023 AST 15 09/07/2023 ALT 16 09/07/2023 Lab Results Component Value Date HGBA1C 5.9 (H) 09/07/2023 Review of Systems See HPI Vitals: 09/27/23 1400 BP: 128/70 BP Location: Right arm Patient Position: Sitting Pulse: 71 Temp: 37.2 ??C (98.9 ??F) TempSrc: Oral SpO2: 98% Weight: 87.5 kg (193 lb) Height: 157.5 cm (5' 2 ) Physical [...] Diagnoses and all orders for this visit: Pre-diabetes (R73.03) (Primary) Assessment & Plan: Pre-diabetes/hyperglycemia is a precursor to Dm. Stressed importance of working on diet (decrease your simple sugars and one carbohydrate with each meal) and increase you exercise to achieve weight loss and this will help prevent you from progressing to diabetes. Mixed hyperlipidemia (E78.2) Assessment & Plan: Encouraged patient to follow low fat/low chol diet like the Mediterranean diet. Increase good fats in the diet. Increase exercise. Monitor labs as needed. Grief (F43.21) Assessment & Plan: Patient with significant grief after multiple losses in her family. Discussed the importance of grief counseling. Provided information about grief share as well as heart strings in [place] for support. Discussed medications including risks benefits alternatives side effects and proper use. She statesshe has good support around her and would like to try counseling before considering medication. If her symptoms increase she may call at any time to consider starting an SSRI Large breasts (N62) Assessment & Plan: Patient with large breasts. States he had [...] glad to make that referral for her. BMI 35.0-35.9,adult (Z68.35) Assessment & Plan: Discussed the patient's BMI. The BMI is above average. BMI management plan is completed. BMI Follow-up includes: nutrition counseling, exercise counseling and education provided. Morbid obesity (HCC) (E66.01) Assessment & Plan: Discussed the patient's BMI. The BMI is above average. BMI management plan is completed. BMI Follow-up includes: nutrition counseling, exercise counseling and education provided. Patient has an obesity-related condition (not limited to: hypertension, obstructive sleep apnea, osteoarthritis, hyperlipidemia, diabetes, etc.). Therefore, morbid obesity may be documented for patients with a BMI between 35.00-39.99. *This note is dictated using cloudswave voice recognition software, variances in spelling and vocabulary are possible and unintentional.* Supriya Hay PA-C documented in this encounter Miscellaneous Notes * Assessment & Plan Note - Supriya Hay PA - 10/05/2023 11:47 AM CDT Associated Problem(s): BMI 33.0-33.9,adult Discussed the patient's BMI. The BMI is above average. BMI management plan is completed. BMI Follow-up includes: nutrition counseling, exercise counseling and education provided. * Assessment & Plan Note - Supriya Hay PA - 10/05/2023 11:47 AM CDT Associated Problem(s): Obesity (BMI 30.0-34.9) Discussed the patient's BMI. The BMI is above average. BMI management plan is completed. BMI Follow-up includes: nutrition counseling, exercise counseling and education provided. Patient has an obesity-related condition (not limited to: hypertension, obstructive sleep apnea, osteoarthritis, hyperlipidemia, diabetes, etc.). Therefore, morbid obesity may be documented for patients with a BMI between 35.00-39.99. * Assessment & Plan Note - Supriya Hay PA - 10/05/2023 11:47 AM CDT Associated Problem(s): Mixed hyperlipidemia Encouraged patient to follow low fat/low chol diet like the Mediterranean diet. Increase good fats in the diet. Increase exercise. Monitor labs as needed. * Assessment & Plan Note - Supriya Hay PA - 10/05/2023 11:47 AM CDT Associated Problem(s): Grief Patient with significant grief after multiple losses in her family. Discussed the importance of grief counseling. Provided information about grief share as well as heart strings in [place] for support. Discussed medications including risks benefits alternatives side effects and proper use. She statesshe has good support around her and would like to try counseling before considering medication. If her symptoms increase she may call at any time to consider starting an SSRI * Assessment & Plan Note - Supriya Hay PA - 10/05/2023 11:46 AM CDT Associated Problem(s): Large breasts Patient with large breasts. States he had [...] glad to make that referral for her. * Assessment & Plan Note - Supriya Hay PA - 10/05/2023 11:46 AM CDT Associated Problem(s): Pre-diabetes Pre-diabetes/hyperglycemia is a precursor to Dm. Stressed importance of working on diet (decrease your simple sugars and one carbohydrate with each meal) and increase you exercise to achieve weight loss and this will help prevent you from progressing to diabetes. documented in this encounter Plan of Treatment Not on file documented as of this encounter Visit Diagnoses Diagnosis Pre-diabetes- Primary Other abnormal glucose Mixed hyperlipidemia Grief Adjustment disorder with depressed mood Large breasts Hypertrophy of breast BMI 35.0-35.9,adult Morbid obesity (HCC) Morbid obesity documented in this encounter Historical Medications * This list may reflect changes made after this encounter. Blisovi Fe 04/10, , 1 mg-20 mcg (21)/75 mg (7) per tablet Take 1 tablet by mouth daily 08/04/2023 11/04/2023 tranexamic acid (LYSTEDA) 650 mg tablet TAKE 2 TABLETS BY MOUTH THREE TIMES DAILY FOR 5 DAYS FOR BLEEDING 08/04/2023 11/04/2023 added in this encounter Care Teams Outbound Call Center Representative Relationship Specialty Start Date End Date Supriya Hay PA [address] [facility] [address] [place] [address] PCP - General Internal Medicine 02/21/20 Helio Carrera MD [address] [facility] [address] [place] [address] Referring Physician Obstetrics and Gynecology 09/03/21 documented as of this encounter
--- OUTSIDE RECORDS SUMMARY | 2024-04-01 05:52 | XMS_ITS | Encounter Summary ---
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 Name Role Phone Supriya Hay Primary Care Provider +1- [phone] Helio Carrera MD Unavailable Encounter Details Date Type Department Care Team (Late st Contact Info) Description 06/09/2023 Telephone [facility] Obstetrics and Gynecology [facility] [place] [address] Hilaria Silva Social History Tobacco Use Types Packs/Day Years [...] PM CDT 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 (DM) documented in this encounter Plan of Treatment Not on file documented as of this encounter Visit Diagnoses Not on filedocumented in this encounter Care Teams [employer] Crew Boss Relationship Specialty Start Date End Date Supriya Hay PA [address] [facility] [address] [place] [address] PCP - General Internal Medicine 02/21/20 Helio Carrera MD [address] [facility] [address] [place] [address] Referring Physician Obstetrics and Gynecology 09/03/21 documented as of this encounter
--- OUTSIDE RECORDS SUMMARY | 2024-04-01 05:52 | XMS_ITS | Encounter Summary ---
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 Per pt this has already been performed. *MS* documented in this encounter Plan of Treatment Not on file documented as of this encounter Visit Diagnoses Not on filedocumented in this encounter Care Teams Convolute Tube Winder Relationship Specialty Start Date End Date Supriya Hay PA [address] [facility] [address] [place] [address] PCP - General Internal Medicine 02/21/20 Helio Carrera MD [address] [facility] [address] [place] [address] Referring Physician Obstetrics and Gynecology 09/03/21 documented as of this encounter
--- OUTSIDE RECORDS SUMMARY | 2024-04-01 05:52 | XMS_ITS | Encounter Summary ---
Author Organization [facility] Medical Group Address [address] [facility] [address] [place] [address] Care Team Providers Care Utility Worker Roller Shop Name Role Phone Supriya Hay Primary Care Provider +1- [phone] Helio Carrera MD Unavailable +1- [phone] Reason for Visit * Reason Comments Earache BL ear ache for 2 we eks. Has red bumps on tip of tongue Warts On middle finger of left hand Encounter Details Date Type Department Care Team (Late st Contact Info) Description 06/04/2022 6:45 PM CDT Office Visit [facility] Outpatient Center [address] [address] Marcela Norman, LINK TRAINER [address] [place] [address] [address] [place] [address] Eustachian tube dysfunction, bilateral (Primary Dx); Wart of hand; Burning tongue Social History Tobacco Use Types Packs/Day Years Used Date Smoking Tobacco: Never Smokeless Tobacco: Never Tobacco Cessation:Counseling Given: Not Answered Alcohol Use Standard Drinks/Week Comments Never 0 (1 standard drink = 0.6 oz pur e alcohol) AUDIT-C Answer Date Recorded Frequency of Alcohol Consumption Not on file 12/23/2021 Q2: How many drinks containi ng alcohol do you have on a typical day when you are drinking? 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 Gender Identity Female 11/16/2022 3:54 PM CDT Sexual Orientation Straight 11/16/2022 3: 54 PM CDT documented as of this encounter Last Filed Vital Signs Vital Sign Reading Time Taken Comments Blood Pressure 128/74 06/04/2022 3:51 PM CDT Pulse 89 06/04/2022 3:51 PM CDT Temperature 37.6 ??C (99.6 ??F) 06/04/2022 3:51 PM CD T Respiratory Rate 18 06/04/2022 3:51 PM CDT Oxygen Saturation 98% 06/04/2022 3:51 PM CDT Inhaled Oxygen Concentration - - Weight 84.8 kg (187 lb) 06/04/2022 3:51 PM CDT Height 157.5 cm (5' 2.01 ) 06/04/2022 3:51 PM CD T Body Mass Index 34.19 06/04/2022 3:51 PM CDT documented in this encounter Patient Instructions * Patient Instructions* Marcela Norman, LINK TRAINER - 06/04/2022 6:45 PM CDT # ear pain due to fluid --start antihistamine with or without decongestant pending symptoms and patient history. --tylenol/motrin for fever/pain, use as directed --Warm compress to ear (heating pad) for 10-15 minutes followed by massage to area below ear to help open eustachian tube to drain fluid behind ear drum. --ED presentation with one or more of the following symptoms: fever uncontrolled with antipyretics,shortness of breath, chest discomfort, uncontrolled n/v/d --f/u with PCP in 3-5 days if symptoms do not improve/worsen. Or RTC for evaluation of antibiotic need and ear recheck. For wart- Patient to start gaul-xfg-tttqawn treatment for warts and if it does not improve patient will follow-up with Dermatology. For burning tongue- we will call out mouthwash for patient to use daily and referral to ENT. * Attachments The following attachments cannot be sent through Care Everywhere. * Eustachian Tube Dysfunction (General Information) (Samoan) * Common Wart (Regulatory Affairs Coordinator) (Samoan) documented in this encounter Ordered Prescriptions Prescription Sig Dispense Quantity Refills Last Filled Start Date End Date chlorhexidine (PERIDEX) 0.12 % solutionIndications :Mouth Infection Prevention Swish and spit 10 mL 2 (two) times a day for 7 days 120 mL 06/04/2022 06/11/2022 documented in this encounter Progress Notes * Marcela Norman NP - 06/04/2022 6:45 PM CDT Images from the original note were not included. Patient ID: Aziza Lockhart is a 42 y.o. female followed by Supriya Hay PA Chief Complaint Patient presents with Earache BL ear ache for 2 weeks. Has red bumps on tip of tongue Warts On middle finger of left hand Patient presents to the clinic with reports of bilateral earache, red bumps on tongue, and wart on right middle finger for 2 weeks. Denies chest pain, difficulty breathing, fevers, drainage from lesions, difficulty swallowing, sore throat, headaches, rash, and vomiting. She has taken no OTC medications for her symptoms. Patient is currently on Augmentin for an ear infection. Review of Systems Constitutional: Negative for chills, fatigue and fever. HENT: Positive for ear pain. Negative for congestion, postnasal drip, rhinorrhea and sore throat. Tongue pain Respiratory: Negative for cough, chest tightness, shortness of breath and wheezing. Cardiovascular: Negative for chest pain. Gastrointestinal: Negative for diarrhea, nausea and vomiting. Musculoskeletal: Negative for myalgias. Skin: Positive for rash (warts on hand). Neurological: Negative for headaches. Vitals: 06/04/22 1551 BP: 128/74 BP Location: Left arm Patient Position: Sitting Pulse: 89 Resp: 18 Temp: 37.6 ??C (99.6 ??F) SpO2: 98% Weight: 84.8 kg (187 lb) Height: 157.5 cm (5' 2.01 ) Physical Exam Vitals reviewed. Constitutional: General: She is not in acute distress. Appearance: She is well-developed. She is not ill-appearing. HENT: Right Ear: Ear canal and external ear normal. A middle ear effusion is present. Tympanic membrane is not injected, erythematous or bulging. Left Ear: Ear canal and external ear normal. A middle ear effusion is present. Tympanic membrane isnot injected, erythematous or bulging. Nose: Congestion present. Right Sinus: No maxillary sinus tenderness or frontal sinus tenderness. Left Sinus: No maxillary sinus tenderness or frontal sinus tenderness. Mouth/Throat: Lips: [place]. Mouth: Mucous membranes are moist. Tongue: No lesions. Tongue does not deviate from midline. Pharynx: Uvula midline. Posterior oropharyngeal erythema present. No pharyngeal swelling or oropharyngeal exudate. Comments: Redness noted to tip of patient's tongue, no swelling, drainage, or lesions seen Cardiovascular: Rate and Rhythm: Normal rate and regular rhythm. Pulmonary: Effort: Pulmonary effort is normal. No respiratory distress. Breath sounds: Normal breath sounds. No decreased breath sounds, wheezing or rhonchi. Lymphadenopathy: Cervical: No cervical adenopathy. Skin: General: Skin is warm and dry. Comments: Right hand, middle finger, cavazos side- small, skin colored lesion noted with darker center. No redness, swelling, or drainage. Area is not painful to palpation. Neurological: Mental Status: She is alert and oriented to person, place, and time. Diagnoses and all orders for this visit: Eustachian tube dysfunction, bilateral (Primary) - Ambulatory referral to ENT; Future Wart of hand Burning tongue - chlorhexidine (PERIDEX) 0.12 % solution; Swish and spit 10 mL 2 (two) times a day for 7 days - Ambulatory referral to ENT; Future Orders Placed This Encounter Procedures Ambulatory referral to ENT Standing Status: Future Standing Expiration Date: 06/05/2023 Referral Priority: Routine Referral Type: Consultation Referral Reason: Specialty Services Required Referral Location: [facility] Medical Group Requested Specialty: Otolaryngology Number of Visits Requested: 1 Assessment/Plan -patient to start Flonase and antihistamine to help with fluid behind ears -patient will get fyoo-uee-fjinfxg wart treatment to start on her finger since she has not done anything to it yet. If symptoms persist we will refer to Dermatology. -referral to ENT placed for possible burning tongue syndrome and recurrent eustachian tube dysfunction. -Peridex mouthwash sent out for patient to use -monitor symptoms and if they worsen patient will follow-up with primary care doctor or go to the ER if needed Disposition Treatment plan including expectations, follow up, and return precautions discussed with patient/parent, verbalizes understanding. Medication dosage, use, and potential adverse reactions discussed with patient/parent. Advised to follow up with PCP if symptoms do not resolve as expected or sooner if condition worsens. Discussed Signs/symptoms warranting ER evaluation including worsening fever, increased shortness ofbreath, chest pain, severe N/V/D, or any other worrisome symptoms Patient and/or guardian was given an opportunity to ask questions, questions answered. Patient Education # ear pain due to fluid --start antihistamine with or without decongestant pending symptoms and patient history. --tylenol/motrin for fever/pain, use as directed --Warm compress to ear (heating pad) for 10-15 minutes followed by massage to area below ear to help open eustachian tube to drain fluid behind ear drum. --ED presentation with one or more of the following symptoms: fever uncontrolled with antipyretics,shortness of breath, chest discomfort, uncontrolled n/v/d --f/u with PCP in 3-5 days if symptoms do not improve/worsen. Or RTC for evaluation of antibiotic need and ear recheck. For wart- Patient to start gtqr-rrv-cjeflbk treatment for warts and if it does not improve patient will follow-up with Dermatology. For burning tongue- we will call out mouthwash for patient to use daily and referral to ENT. Marcela Norman NP Cosigned by Percy Gottlieb MD at 06/05/2022 10:57 AM CDT documented in this encounter Plan of Treatment Not on file documented as of this encounter Visit Diagnoses Diagnosis Eustachian tube dysfunction, bilateral- Primary Wart of hand Burning tongue Glossodynia documented in this encounter Care Teams Utility Worker Roller Shop Relationship Specialty Start Date End Date Supriya Hay PA [address] [place] [address] PCP - General Internal Medicine 02/21/20 Helio Carrera MD [address] [place] [address] Referring Physician Obstetrics and Gynecology 09/03/21 documented as of this encounter
--- OUTSIDE RECORDS SUMMARY | 2024-04-01 05:52 | XMS_ITS | Encounter Summary ---
Author Organization [facility] Medical [facility] Address [address] [facility] [address] [place] [address] Care Team Providers Care Quantitative Strategy Analyst Name Role Phone Supriya Hay Primary Care Provider +1- [phone] Helio Carrera MD Unavailable +1- [phone] Reason for Visit * Reason Onset Date Comments [facility] notes 08/31/2022 Encounter Details Date Type Department Care Team (Late st Contact Info) Description 08/31/[address] 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 ER on 08/26/2022 for Nausea, Vomiting and Diarrhea. She was prescribed dicyclomine 20 mg and ondansetron mg. Notes attached. documented in this encounter Plan of Treatment Not on file documented as of this encounter Visit Diagnoses Not on filedocumented in this encounter Care Teams Quantitative Strategy Analyst Relationship Specialty Start Date End Date Supriya Hay PA [address] [facility] [address] [place] [address] PCP - General Internal Medicine 02/21/20 Helio Carrera MD [address] [facility] [address] [place] [address] Referring Physician Obstetrics and Gynecology 09/03/21 documented as of this encounter
--- OUTSIDE RECORDS SUMMARY | 2024-04-01 05:52 | XMS_ITS | Encounter Summary ---
Author Organization [facility] Address [address] [place] [address] Care Team Providers Care Kiln Operator Helper Name Role Phone Supriya Hay Primary Care Provider +1- [phone] Helio Carrera MD Unavailable +1- [phone] Reason for Referral * Diagnostic Imaging (Routine) - Closed Specialty Diagnoses / Procedures Referred By Contac t Referred To Contact Diagnoses Screening mammogram, encounter for Procedures Screening Mammogram Bilateral W Sree Screening Mammogram, Self Referral ID Status Reason Start Date Expiration Date Visits Re quested Visits Authorized [id number] Closed 09/10/2022 10/10/2023 1 1 Reason for Visit * Diagnostic Imaging (Routine) - Closed Specialty Diagnoses / Procedures Referred By Contac t Referred To Contact Diagnoses Screening mammogram, encounter for Procedures Screening Mammogram Bilateral W Sree Screening Mammogram, Self Referral ID Status Reason Start Date Expiration Date Visits Re quested Visits Authorized [id number] Closed 09/10/2022 10/10/2023 1 1 Encounter Details Date Type Department Care Team (Latest Contact Info) Description 10/29/2022 3:15 PM CDT - 10/29/2022 11:59 PM CDT Hospital Encounter [facility] Breast Imaging [address] [place] [phone] Screening mammogram, encounter for Discharge Disposition: Discharge to home or self care Social History Tobacco Use Types Packs/Day Years [...] PM CDT 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 Gender Identity Female 11/16/2022 3:54 PM CDT Sexual Orientation Straight 11/16/2022 3: 54 PM CDT documented as of this encounter Medications at Time of Discharge ibuprofen (ADVIL,MOTRIN) 800 mg tablet Take 1 tablet (800 mg total) by mouth 3 (three) times a day as needed for pain (cramping and bleeding) 90 tablet 1 07/14/2022 07/14/2023 hydroCHLOROthiazi de (HYDRODIURIL) 25 mg tabletIndications :Edema, lower extremity TAKE 1 TABLET(25 MG) BY MOUTH DAILY 30 tablet 01/01/2022 05/31/2023 [facility] relugolix/E2/SHIVA (2021-09-034/MVT- 601-050) 40 mg/1 mg/0.5 mg tablet Take 1 tablet by mouth daily 365 tablet 05/19/2022 11/16/2022 documented as of this encounter Discharge Disposition Disposition Code Departure Means Destination Discharge to home or self care documented in this encounter Miscellaneous Notes * Result Encounter Note - Supriya Hay PA - 10/29/2022 6:54 PM CDT Let pt know her mammogram is normal and will plan to repeat in 1 year. documented in this encounter Plan of Treatment Not on file documented as of this encounter Procedures Procedure Name Priority Date/Time Associated Diagnosis Comments SCREENING MAMMOGRAM BILATERAL W SREE Schedule Routine, Read Routine (OP Routine) 10/29/2022 3:42 PM CDT Screening mammogram, encounter for documented in this encounter Results * Screening Mammogram Bilateral W Sree (10/29/2022 3:42 PM CDT) Anatomical Region Laterality Modality Breast Bilateral Mammography Impressions 10/29/2022 4:17 PM CDT BI-RADS?? ATLAS category (overall): 2 - Benign There is no mammographic evidence of malignancy. A 1 year screening mammogram is recommended. The patient has been or will be contacted. We recommend annual screening mammography for women at average risk of breast cancer beginning at age 40, based on guidelines of the [place] [employer] (ACR Practice Parameter for the Performance of Screening and Diagnostic Mammography) and [place] [employer]. For women with and elevated risk of breast cancer, please refer to the ACR Practice Parameter for specific screening recommendations. The patient will be entered into a reminder system with a target due date of 1 year for her next screening exam. Narrative 10/29/2022 4:17 PM CDT Screening Mammogram Bilateral W Sree: 10/29/22 The study was acquired using full field digital technology and interpreted from soft copy. 2D digital mammographic views, as well as 3D digital tomosynthesis were performed in the CC and MLO projections. CLINICAL: ??Screening mammogram, encounter for. ??No relevant medical history has been documented for this patient. ??No known family history of breast cancer. COMPARISONS: 09/17/2021 US Breast Bilateral Limited 09/03/2021 Screening Mammogram Bilateral W Sree BREAST TISSUE: The breasts have scattered areas of fibroglandular density. FINDINGS: There are unchanged benign bilateral intramammary lymph nodes. No suspicious masses, suspicious calcifications, or other suspicious findings are seen within either breast. There has been no suspicious change. us Self Screening Mammogram IMG MAMMO PROCEDURES Fi nal Result documented in this encounter Visit Diagnoses Diagnosis Screening mammogram, encounter for documented in this encounter Care Teams Kiln Operator Helper Relationship Specialty Start Date End Date Supriya Hya PA [address] [facility] [place] [address] PCP - General Internal Medicine 02/21/20 Helio Carrera MD [address] [place] [address] Referring Physician Obstetrics and Gynecology 09/03/21 documented as of this encounter
--- OUTSIDE RECORDS SUMMARY | 2024-04-01 05:52 | XMS_ITS | Encounter Summary ---
Author Organization [facility] Address [address] [facility] [address] [place] [address] Care Team Providers Care Pharmaceutical Worker Name Role Phone Supriya Hay Primary Care Provider +1- [phone] eHlio Carrera MD Unavailable +1- [phone] Reason for Visit * Reason Onset Date Comments Breast Pain 12/09/2022 Encounter Details Date Type Department Care Team (Late st Contact Info) Description 12/09/2022 Nurse Triage [facility] Family Medicine 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 Pt denies fever, redness or warmth. Pt notes it feels like her skin is tight over breast. Pt offered CC appt and accepts. Advised to call back with fever or any concerns. Pt verbalized understanding. Reason for Disposition Breast lump Protocols used: Breast [id number] * Telephone Encounter - Christen Mccrary RN - 12/09/2022 2:45 PM CDT Regarding: left breast pain ----- Message from Earline Gonzalez MA sent at 12/09/2022 2:30 PM CDT ----- Symptom Based Call Caller's Callback #: [phone] Chief Complaint(s): left breast pain Duration: x 1 week What type of symptom(s) is the patient experiencing? Non-Emergent. Is this a new or reoccurring symptom(s)? new What have you tried to help your symptom(s)? no Why was appointment not scheduled? Appointment availability did not meet the patient's need. Additional Comments: she sometimes has to hold the breast because it is painful, tightness in armpit, and side of breast. Possible knot, but not sure. Called for appt, nothing available till Nov. Does message need to be routed? Yes-Action Needed documented in this encounter Plan of Treatment Not on file documented as of this encounter Visit Diagnoses Not on filedocumented in this encounter Care Teams Pharmaceutical Worker Relationship Specialty Start Date End Date Supriya Hay PA [address] [facility] [address] [place] [address] PCP - General Internal Medicine 02/21/20 Helio Carrera MD [address] [facility] [address] [place] [address] Referring Physician Obstetrics and Gynecology 09/03/21 documented as of this encounter
--- OUTSIDE RECORDS SUMMARY | 2024-04-01 05:52 | XMS_ITS | Encounter Summary ---
Author Organization [facility] Address [address] [place] [address] Phone Care Team Providers Care Shot Tube Machine Tender Name Role Phone Supriya Hay Primary Care Provider +1- [phone] Helio Carrera MD Unavailable +1- [phone] Reason for Visit * Reason Onset Date Comments debi HERNANDEZ 06/04/2023 Encounter Details Date Type Department Care Team (Late st Contact Info) Description 06/04/2023 Telephone [facility] Obstetrics and Gynecology [address] [facility] 7th [address] [place] [address] Gloria Reed, RN debi HERNANDEZ Social History Tobacco Use Types Packs/Day Years [...] PM CDT 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 * Telephone Encounter - Gloria Reed RN - 06/04/2023 2:46 PM CDT [facility] PA initiated per pharmacy request. Competed via [facility]. Pt updated. documented in this encounter Plan of Treatment Not on file documented as of this encounter Visit Diagnoses Not on filedocumented in this encounter Care Teams Shot Tube Machine Tender Relationship Specialty Start Date End Date Supriya Hay PA [address] [place] [address] PCP - General Internal Medicine 02/21/20 Helio Carrera MD [address] [place] [address] Referring Physician Obstetrics and Gynecology 09/03/21 documented as of this encounter
--- OUTSIDE RECORDS SUMMARY | 2024-04-01 05:52 | XMS_ITS | Encounter Summary ---
Author Organization [facility] Address [address] [place] [address] Phone Care Team Providers Care First Beater Name Role Phone Supriya Hay Primary Care Provider +1- [phone] Helio Carrera MD Unavailable Encounter Details Date Type Department Care Team (Late st Contact Info) Description 08/20/2022 Telephone [facility] Obstetrics and Gynecology [address] [facility] 7th Floor [address] [place] [address] Percy Hutchinson MD [address] [facility] [phone] [place] [address] Social History Tobacco Use Types Packs/Day Years [...] PM CDT 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 Unable to speak to patient or leave VM as call did not go thru on either listed number. documented in this encounter Plan of Treatment Not on file documented as of this encounter Visit Diagnoses Not on filedocumented in this encounter Care Teams First Beater Relationship Specialty Start Date End Date Supriya Hay PA [address] [facility] [address] [place] [address] PCP - General Internal Medicine 02/21/20 Helio Carrera MD [address] [facility] [address] [place] [address] Referring Physician Obstetrics and Gynecology 09/03/21 documented as of this encounter
--- OUTSIDE RECORDS SUMMARY | 2024-04-01 05:52 | XMS_ITS | Encounter Summary ---
Author Organization [facility] Address [address] [place] [address] Phone Care Team Providers Care Selling Manager Name Role Phone Supriya Hay Primary Care Provider +1- [phone] Helio Carrera MD Unavailable +1 [phone] Encounter Details Date Type Department Care Team (Late st Contact Info) Description 08/23/2023 10:30 AM CDT Office Visit [facility] Obstetrics and Gynecology [address] [facility] 7th [address] [place] [address] Percy Hutchinson MD [facility] [phone] [place] [address] Research study patient (Primary Dx) Social History [...] PM CDT Legal Sex Female 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 Gender Identity Female 11/16/2022 3:54 PM CDT Sexual Orientation Straight 11/16/2022 3: 54 PM CDT documented as of this encounter Progress Notes * Percy Hutchinson MD - 08/23/2023 10:30 AM CDT Research exam for MOXIE protocol for Myfembree documented in this encounter Plan of Treatment Not on file documented as of this encounter Visit Diagnoses Diagnosis Research study patient- Primary documented in this encounter Care Teams Selling Manager Relationship Specialty Start Date End Date Supriya Hay PA [address] [place] [address] PCP - General Internal Medicine 02/21/20 Helio Carrera MD [address] [place] [address] Referring Physician Obstetrics and Gynecology 09/03/21 documented as of this encounter
--- OUTSIDE RECORDS SUMMARY | 2024-04-01 05:52 | XMS_ITS | Encounter Summary ---
Author Organization [facility] Address [address] [place] [address] Care Team Providers Care Press Technician Name Role Phone Supriya Hay Primary Care Provider +1- [phone] Helio Carrera MD Unavailable +1- [phone] Encounter Details Date Type Department Care Team (Late st Contact Info) Description 05/12/2023 Telephone [facility] Family Medicine [address] [place] [address] Supriya Hay PA [address] [facility] [address] [place] [address] Social History Tobacco Use Types [...] PM CDT Legal Sex Female 12:02 AM CORRECTIONS SPECIALIST Gender Identity Female 11/16/2022 3:54 PM CDT Sexual Orientation Straight 11/16/2022 3: 54 PM CDT documented as of this encounter Miscellaneous Notes * Telephone Encounter - Supriya Hay PA - 05/17/2023 4:53 PM CORRECTIONS SPECIALIST Noted. ECTIONS SPECIALIST * Telephone Encounter - Yanira Shook MA - 05/14/2023 2:02 PM CORRECTIONS SPECIALIST Talked to pt, f/u from ED visit. Pt states she was DX w/ a virus. She wasn't home at this moment she was out and about. She is feeling much better, advised pt to keep us post on her recover, she saidshe would. ECTIONS SPECIALIST * Telephone Encounter - Kaylah Schreiber - 05/12/2023 10:55 AM CST Pt was seen at [facility] ER in [place] on 05/11/23 for: Nausea/Vomiting/Diarrhea See Attached Notes Staff will call to check on pt ECTIONS SPECIALIST documented in this encounter Plan of Treatment Not on file documented as of this encounter Visit Diagnoses Not on filedocumented in this encounter Care Teams Press Technician Relationship Specialty Start Date End Date Supriya Hay PA [address] [place] [address] PCP - General Internal Medicine 02/21/20 Helio Carrera MD [address] [place] [address] Referring Physician Obstetrics and Gynecology 09/03/21 documented as of this encounter
--- OUTSIDE RECORDS SUMMARY | 2024-04-01 05:52 | XMS_ITS | Encounter Summary ---
Author Organization [facility] Healthcare Address [address] [place] [address] Care Team Providers Care Postdoctoral Research Fellow Name Role Phone Supriya Hay Primary Care Provider +1- [phone] Helio Carrera MD Unavailable +1- [phone] Encounter Details Date Type Department Care Team (Late st Contact Info) Description 05/11/2023 Orders Only [facility] Health Information Management [address] [place] [address] Scanning, Provider Social History Tobacco Use Types Packs/Day [...] PM CDT Legal Sex Female 12:02 AM EDI DEVELOPER Gender Identity Female 11/16/2022 3:54 PM CDT Sexual Orientation Straight 11/16/2022 3: 54 PM CDT documented as of this encounter Plan of Treatment Not on file documented as of this encounter Procedures Procedure Name Priority Date/Time Associated Diagnosis Comments SCAN - LABS 05/11/2023 documented in this encounter Results * SCAN - LABS (05/11/2023) us Provider Scanning Edited Result - Final documented in this encounter Visit Diagnoses Not on filedocumented in this encounter Care Teams Postdoctoral Research Fellow Relationship Specialty Start Date End Date Supriya Hay PA [address] [place] [address] PCP - General Internal Medicine 02/21/20 Helio Carrera MD [address] [place] [address] Referring Physician Obstetrics and Gynecology 09/03/21 documented as of this encounter
--- OUTSIDE RECORDS SUMMARY | 2024-04-01 05:52 | XMS_ITS | Encounter Summary ---
Author Organization [facility] Address [address] [facility] [address] [place] [address] Care Team Providers Care Cmm Programmer Name Role Phone Supriya Hay Primary Care Provider +1- [phone] Helio Carrera MD Unavailable +1- [phone] Reason for Visit * Reason Comments Breast Pain Pt c/o pain in left breast, into axilla, and burning sensation around nipple. Pt states problem has been ongoing for about 2 weeks. Denies any nipple discharge Encounter Details Date Type Department Care Team (Late st Contact Info) Description 12/10/2022 2:30 PM CDT Office Visit [facility] [address] [address] Manolo Briones NP [address] [place] [address] [address] [place] [address] Breast pain, left (Primary Dx); Left axillary pain Social History Tobacco Use Types Packs/Day Years [...] PM CDT Legal Sex Female 12:02 AM PROJECT MANAGER FINANCE Gender Identity Female 11/16/2022 3:54 PM CDT Sexual Orientation Straight 11/16/2022 3: 54 PM CDT documented as of this encounter Last Filed Vital Signs Vital Sign Reading Time Taken Comments Blood Pressure 110/60 12/10/2022 2:27 PM CDT Pulse 83 12/10/2022 2:27 PM CDT Temperature 36.9 ??C (98.5 ??F) 12/10/2022 2:27 PM CD T Respiratory Rate 20 12/10/2022 2:27 PM CDT Oxygen Saturation 98% 12/10/2022 2:27 PM CDT Inhaled Oxygen Concentration - - Weight 84.8 kg (187 lb) 12/10/2022 2:27 PM CDT Height 157.5 cm (5' 2 ) 12/10/2022 2:27 PM CDT Body Mass Index 34.2 12/10/2022 2:27 PM CDT documented in this encounter Patient Instructions * Patient Instructions* Manolo Briones NP - 12/10/2022 2:30 PM CDT If you have no improvement or worsening of your symptoms, please follow up with your Primary Care Provider, Convenient Care and or Emergency Room. I strive to provide you with EXCELLENT service. You may receive a survey after your visit today. If you cannot rate your experience as EXCELLENT, please let us know how we can improve and better meet your needs. Thank you for choosing [facility]! It was my pleasure to see you today, I hope you feel better soon! Manolo Briones TWILL CUTTER documented in this encounter Progress Notes * Manolo Briones NP - 12/10/2022 2:30 PM CDT Images from the original note were not included. Subjective/Objective Patient ID: Aziza Lockhart is a 42 y.o. female. Chief Complaint Breast Pain (Pt c/o pain in left breast, into axilla, and burning sensation around nipple. Pt states problem has been ongoing for about 2 weeks. Denies any nipple discharge) Patient presents to convenient care with complaints of pain in left axilla that radiates to left lateral breast. Patient states symptoms started approximately 1 week ago. Patient states she also has chronic intermittent burning around her left nipple. Patient denies any trauma to area, patient is not , no recent illnesses, rashes or fevers, no recent vaccine, denies nipple discharge. Patient had a normal mammogram on September 04, 2022. Review of Systems Constitutional: Negative for appetite change, chills, diaphoresis, fatigue and fever. HENT: Negative for sore throat and trouble swallowing. Respiratory: Negative for cough, shortness of breath and wheezing. Cardiovascular: Negative for chest pain and palpitations. Gastrointestinal: Negative for diarrhea, nausea and vomiting. Musculoskeletal: Negative. Skin: Negative for color change, pallor, rash and wound. Allergic/Immunologic: Negative for environmental allergies and food allergies. Neurological: Negative for headaches. Psychiatric/Behavioral: Negative for behavioral problems. Breast: Positive for tenderness. Negative for breast redness, breast discharge and lump(s). Physical Exam Vitals and nursing note reviewed. Constitutional: Appearance: Normal appearance. She is not ill-appearing. HENT: Head: Normocephalic and atraumatic. Cardiovascular: Rate and Rhythm: Normal rate. Pulses: Normal pulses. Pulmonary: Effort: Pulmonary effort is normal. Chest: Breasts: Left: No swelling, bleeding, inverted nipple, mass, nipple discharge, skin change or tenderness. Lymphadenopathy: Upper Body: Left upper body: No supraclavicular, axillary or pectoral adenopathy. Skin: General: Skin is warm and dry. Capillary Refill: Capillary refill takes less than 2 seconds. Findings: No bruising, erythema or rash. Neurological: Mental Status: She is alert and oriented to person, place, and time. Vitals: 12/10/22 1427 BP: 110/60 Pulse: 83 Resp: 20 Temp: 36.9 ??C (98.5 ??F) SpO2: 98% Weight: 84.8 kg (187 lb) Height: 157.5 cm (5' 2 ) No results found. Past Medical History: Diagnosis Date Anemia Lumbar pain with radiation down left leg 05/09/2019 Current Outpatient Medications: hydroCHLOROthiazide (HYDRODIURIL) 25 mg tablet, TAKE 1 TABLET(25 MG) BY MOUTH DAILY, Disp: 30 tablet, Rfl: 0 ibuprofen (ADVIL,MOTRIN) 800 mg tablet, Take 1 tablet (800 mg total) by mouth 3 (three) times a dayas needed for pain (cramping and bleeding), Disp: 90 tablet, Rfl: 1 [facility] relugolix/E2/SHIVA (/[facility]-[id number]) 40 mg/1 mg/0.5 mg tablet, Take 1 tablet by mouth daily, Disp: 365 tablet, Rfl: 0 Allergies Allergen Reactions Clindamycin Shortness of breath Sulfa (Sulfonamide Antibiotics) Itching Social History Tobacco Use Smoking status: Never Smokeless tobacco: Never Substance and Sexual Activity Drug use: Never Sexual activity: Not on file Alcohol Use: Unknown (12/23/2021) AUDIT-C Frequency of Alcohol Consumption: Not on file Average Number of Drinks: Patient does not drink Frequency of Binge Drinking: Not on file Past Surgical History: Procedure Laterality Date BLADDER SURGERY 2019 CHOLECYSTECTOMY 2017 HERNIA MESH REMOVAL 2017 HERNIA REPAIR 2017 TONSILLECTOMY 2006 Assessment/Plan Diagnoses and all orders for this visit: Breast pain, left (Primary) Left axillary pain -discussed with patient that exam today is normal, no palpable masses, erythema streaking or lymphadenopathy. -if symptoms persist over the next 7 days or worsen please follow-up with your primary care provider for further evaluation -reassuring that mammogram on August 2022 was normal Patient Education: -Ibuprofen as needed for pain per package directions -drink plenty of water Disposition Treatment plan including expectations, follow up, and return precautions discussed with patient/parent, verbalizes understanding. Medication dosage, use, and potential adverse reactions discussed with patient/parent. Advised to follow up with PCP if symptoms do not resolve as expected or sooner if condition worsens. Signs/symptoms warranting ER evaluation reviewed. Patient and/or guardian was given an opportunity to ask questions, questions answered. Manolo Briones NP This office note has been partially dictated using [employer] software, and as a result portions of the record may have been created with this software. Occasional wrong-word or '[id number]-q-tnal' substitutions may have occurred due to the inherent limitations of voice recognition software. Read the chartcarefully and recognize, using context, where substitutions have occurred. documented in this encounter Plan of Treatment Not on file documented as of this encounter Visit Diagnoses Diagnosis Breast pain, left- Primary Left axillary pain documented in this encounter Care Teams Cmm Programmer Relationship Specialty Start Date End Date Supriya Hay PA [address] [facility] [address] [place] [address] PCP - General Internal Medicine 02/21/20 Helio Carrera MD [address] [facility] [address] [place] [address] Referring Physician Obstetrics and Gynecology 09/03/21 documented as of this encounter
--- OUTSIDE RECORDS SUMMARY | 2024-04-01 05:52 | XMS_ITS | Encounter Summary ---
Author Organization [facility] Address [address] [place] [address] Phone Care Team Providers Care Sheet Metal Former Name Role Phone Supriya Hay Primary Care Provider +1- [phone] Helio Carrera MD Unavailable +- [phone] Reason for Referral * Diagnostic Imaging (Routine) - Authorized Specialty Diagnoses / Procedures Referred By Melissa swanson Referred To Contact Diagnoses Intramural leiomyoma of uterus Procedures US Pelvis Complete Percy Hutchinson MD [address] [facility] [phone] [place] [address] Phone: tel: fax: [facility] (All Locations) Referral ID Status Reason Start Date Expiration Date V isits Requested Visits Authorized [id number] Authorized 05/31/2023 06/29/2024 1 1 Reason for Visit * Reason Comments Research Fibroids Abnormal Uterine Bleeding Encounter Details Date Type Department Care Team (Late st Contact Info) Description 05/31/2023 11:15 AM CDT Office Visit [facility] Obstetrics and Gynecology [address] [place] [address] Outpatient Health 7th Floor [address] [place] [address] Percy Hutchinson MD [address] [phone] [place] [address] Research study patient (Primary Dx); Abnormal uterine bleeding; Intramural leiomyoma of uterus; LLQ pain; Left inguinal pain Social History Tobacco Use Types Packs/Day [...] PM CDT Legal Sex Female 12:02 AM LAMP WIRER Gender Identity Female 11/16/2022 3:54 PM CDT Sexual Orientation Straight 11/16/2022 3: 54 PM CDT documented as of this encounter Last Filed Vital Signs Vital Sign Reading Time Taken Comments Blood Pressure 118/79 05/31/2023 11:17 AM CDT Pulse 74 05/31/2023 11:17 AM CDT Temperature - - Respiratory Rate - - Oxygen Saturation - - Inhaled Oxygen Concentration - - Weight 87 kg (191 lb 12.8 oz) 05/31/2023 11:17 A M CDT Height 157.5 cm (5' 2 ) 05/31/2023 11:17 AM CDT Body Mass Index 35.08 05/31/2023 11:17 AM CDT documented in this encounter Patient Instructions * Patient Instructions* Percy Hutchinson MD - 05/31/2023 11:15 AM CDT Images from the original note were not included. documented in this encounter Ordered Prescriptions Prescription Sig Dispense Quantity Refills Last Filled Start Date End Date relugolix-estradiol -norethindr (Myfembree) 40-1-0.5 mg tabletIndications:h eavy menstrual bleeding assoc. with uterine leiomyoma Take 1 tablet/caps ule by mouth daily 90 tablet 2 05/31/2023 11/04/2023 documented in this encounter Progress Notes * Percy Hutchinson MD - 05/31/2023 11:15 AM CDT Patient ID: Aziza Lockhart is a 42 y.o. female Subjective Chief Complaint: Research, Fibroids, and Abnormal Uterine Bleeding HPI: 42 y.o. with PMH significant for fibroid uterus having completed 13 cycles of Myovant trialfor Myfembree who presents for close out of research trial. In addition she is requesting follow-upregarding her troublesome bleeding patterns, left lower quadrant/inguinal pain, and fibroid uterus.She has a longstanding history of fibroid uterus that has been managed with medications primarily.She has been on them Myfembree as a part of the contraceptive research trial per protocol and has not been using any other contraception until she completed the medication this past month and startedon generic Loestrin 24 continuously. She liked having little to no menstrual bleeding as her periods have been painful and heavy as result of the fibroids. She and her partner have not decided if they want permanent contraception, but she is not seeking . She continues to be bothered by left lower quadrant/inguinal pain that comes and goes and can last for moments to hours but is generally controlled with 800 mg of ibuprofen. She has been unable to identify the specific cause of this pain or any associated activities. She notes she would like her fibroids removed and has set up continuing OBGYN care with provider in [place], [place], Dr. Helio Alexis. 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 All necessary changes were made in her chart to reflect updates. Objective BP 118/79 Pulse 74 Ht 157.5 cm (5' 2 ) Wt 87 kg (191 lb 12.8 oz) BMI 35.08 kg/m?? Physical Exam Examination chaperoned by Dashawn Lubin RA General Appearance: appears stated age, cooperative, and no distress, Breast: Normal breast tissue bilaterally, no nipple discharge, no skin changes, no axillary lymphadenopathy Gastrointestinal Exam: soft, non-tender; bowel sounds normal; no masses, no organomegaly, Pelvic Exam: External genitalia: normal general appearance Urinary system: urethral meatus normal and bladder not palpable Vaginal: normal mucosa without prolapse or lesions Cervix: normal appearance Uterus: normal single, nontender, anteverted, enlarged, and approximally 10-12 weeks with palpable left-sided myoma Adnexa: normal bimanual exam Exam limited by body habitus Musculoskeletal Exam: Normal. Back is straight and non-tender, full ROM of upper and lower extremities. Skin: normal Psychiatric Exam: Normal. and Alert and oriented, appropriate affect. Assessment/Plan 1. Research study patient Patient came in today to complete the research protocol [id number]. She did well for the 13 cycleson the Myfembree as a contraceptive without . She stop the research medication and started her Loestrin 24 generic control pill and is doing well with this with no bleeding, but continues to have symptoms as noted below. She will have labs drawn per protocol as well. 2. Abnormal uterine bleeding 3. Intramural leiomyoma of uterus We had extensive conversation regarding her known fibroid uterus. We discussed the natural history of fibroids and potential medication as well surgical treatment options. We discussed that she is not sure whether she wants permanent contraception and therefore many surgical treatments are not appropriate, but that a myomectomy is really only warranted in patients who desire . We discussed the risks, benefits, and alternatives to both surgical and medical treatments and for now she will continue on the Loestrin continuously for menstrual suppression, but wishes to return to is takingthe Myfembree as she feels this helps her symptoms better than simple control pills. A new pre scription for Myfembree was given with instructions that it is not FDA approved is a contraceptive method and the need for backup contraception was discussed. Reviewed that if she does have insurancecoverage for Myfembree she can discontinued the Loestrin and start the Myfembree. In addition we discussed her desire for surgical management and that ultrasound can be helpful in planning. Reviewed that she has plans to follow-up with the OBGYN provider in [facility] and that her records can be shared with them after she signs a release. She wishes to have the ultrasound done here. Will arrange for that ultrasound to be done and follow-up on the results. - US Pelvis Complete; Future 4. LLQ pain 5. Left inguinal pain Reviewed physical exam findings notable for likely fibroid the left side of the uterus that may be contributing to left lower quadrant and left inguinal pain, but is difficult to palpate given her habitus. Unable to the reproduce the pain on exam. We discussed keeping a diary of her pain symptoms of the activity she is doing in order to try to identify what may be triggering her pain. For now sheis doing well with eye 800 mg of ibuprofen as needed. She has this medication at home. Percy Hutchinson MD Please note that portions of this note were created using [employer] and may have some manager payroll variance. documented in this encounter Plan of Treatment Scheduled Orders Name Type Priority Associated Diagnoses Orde r Schedule US Pelvis Complete Imaging Schedule Rout ine, Read Routine (OP Routine) Intramural leiomyoma of uterus Expected: 05/31/2023, Expires: 05/30/2024 documented as of this encounter Visit Diagnoses Diagnosis Research study patient- Primary Abnormal uterine bleeding Unspecified disorder of menstruation and other abnormal bleeding from female genital tract Intramural leiomyoma of uterus LLQ pain Abdominal pain, left lower quadrant Left inguinal pain Abdominal pain, left lower quadrant documented in this encounter Discontinued Medications Medication Sig Discontinue Reason Start Date End Da te [facility] relugolix/E2/SHIVA (2021-09-034/[id number] ) 40 mg/1 mg/0.5 mg tabletIndications:Intram ural leiomyoma of uterus,Research study patient Take 1 tablet by mouth daily Therapy completed 11/16/2022 05/31/2023 nitrofurantoin monohydrate (MACROBID) 100 mg capsule Take 1 capsule (100 mg total) by mouth 2 (two) times a day Therapy completed 05/11/2023 05/31/2023 hydroCHLOROthiazide (HYDRODIURIL) 25 mg tabletIndications:Edema, lower extremity TAKE 1 TABLET(25 MG) BY MOUTH DAILY Therapy completed 01/01/2022 05/31/2023 fluconazole (DIFLUCAN) 150 mg tablet Take 1 tablet (150 mg total) by mouth once Therapy completed 05/11/2023 05/31/2023 documented as of this encounter Care Teams Sheet Metal Former Relationship Specialty Start Date End Date Supriya Hay PA [address] [facility] [address] [place] [address] PCP - General Internal Medicine 02/21/20 Helio Carrera MD [address] [facility] [address] [place] [address] Referring Physician Obstetrics and Gynecology 09/03/21 documented as of this encounter
--- OUTSIDE RECORDS SUMMARY | 2024-04-01 05:52 | XMS_ITS | Encounter Summary ---
Author Organization 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 Gender Identity Female 11/16/2022 3:54 PM CDT [...] BY MOUTH DAILY 30 tablet 01/01/2022 05/31/2023 [facility] relugolix/E2/SHIVA (2021-09-034/MVT- 601-050) 40 mg/1 mg/0.5 mg tabletIndications :Intramural leiomyoma of uterus,Research study patient Take 1 tablet by mouth daily 365 tablet 11/16/2022 05/31/2023 documented as of this encounter Discharge Disposition Disposition Code Departure Means Destination Discharge to home or self care documented in this encounter Plan of Treatment Not on file documented as of this encounter Procedures Procedure Name Priority Date/Time Associated Diagnosis Comments URINALYSIS AND REFLEX TO MICROSCOPIC Routine 11/16/2022 4:03 PM CDT Urinary frequency documented in this encounter Results * Urinalysis reflex to microscopic (11/16/2022 4:03 PM CDT) Color, ur Straw Yellow [facility] Clarity, ur Clear Clear [facility] Specific gravity, ur 1.019 1.003 - 1.030 [facility] pH, urine 6.5 [facility] Protein, ur ql Negative Negative [facility] Glucose, ur ql Negative Negative [facility] Ketones, ur Negative Negative [facility] Bilirubin, ur Negative Negative [facility] Blood, ur Negative Negative [facility] Urobilinogen, ur <2.0 <2.0 mg/dL [facility] Nitrite, ur Negative Negative [facility] Leukocyte esterase, ur Negative Negative [facility] UA reflex comment Reflex conditions for microscopic UA not met. [facility] Urine 11/16/2022 4:03 PM CDT 11/16/2022 8:06 PM CDT Narrative ELIJAH HIGUERA - 11/16/2022 8:37 PM CDT ?? Urine pH is affected by diet, medications, systemic acid-base disturbances, and renal tubular function. ??pH may affect urinary stone formation. ??For example, urine pH below 6.0 may help reduce the tendency for calcium phosphate stones and pH greater than 6.0 may reduce the tendency for uric acid stone formation. Source: [employer]. Last revised 04-01-2017 us Percy Hutchinson MD LAB URINE ORDERABLES Final Result [facility] Department [place] [address] documented in this encounter Visit Diagnoses Diagnosis Urinary frequency documented in this encounter Care Teams Lamp Shade Maker Relationship Specialty Start Date End Date Supriya Hay PA [address] [facility] [address] [place] [address] PCP - General Internal Medicine 02/21/20 Helio Carrera MD [address] [place] [address] Referring Physician Obstetrics and Gynecology 09/03/21 documented as of this encounter
--- OUTSIDE RECORDS SUMMARY | 2024-04-01 05:52 | XMS_ITS | Encounter Summary ---
Author Organization [facility] Address [address] [place] [address] Care Team Providers Care Grocery Clerk Stocking Name Role Phone Supriya Hay Primary Care Provider +1- [phone] Helio Carrera MD Unavailable [phone]- [phone] Reason for Visit * Reason Onset Date Comments Finger Pain 05/27/2022 Encounter Details Date Type Department Care Team (Late st Contact Info) Description 06/03/2022 Nurse Triage [facility] Family Medicine [address] [place] [address] Supriya Hay PA 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 Pt states area is painful. Pt reports a clear bubble with a black spot in the middle. Denies blistering, oozing and draining. Pt states she was seen at for a different problem and they advised her to have it looked at. Pt thought it was a wart but did not think so. Pt is also continuing to have L ear pain and congestion. Pt states she has been on 2 rounds of Amoxicillin with norelief. Appt scheduled at 1530 on 06-04-2022 at [facility]. Pt s comfortable with the plan and will call with worsening sx's. Arrival instructions given to pt. Care advice given including Tylenol as needed for pain, abx as directed, an antihistamine and Flonase. Pt verbalized understanding and will call with worsening sx's. * Telephone Encounter - Gilda Magaña RN - 06/03/2022 2:19 PM CDT Regarding: pain in both ears and tingling in the left ear; a spot on her finger that she wants looked at ----- Message from Demetria Wilcox sent at 06/03/2022 2:18 PM CDT ----- Symptom Based Call Caller's Callback #: [phone] Chief Complaint(s): pain in both ears and tingling in the left ear; a spot on her finger that she wants looked at Duration: 1 month for pain in both ears What type of symptom(s) is the patient experiencing? Non-Emergent. Is this a new or reoccurring symptom(s)? New in the last month What have you tried to help your symptom(s)? She has been to the urgent care twice now. She was given amoxicillin for 5 days the first time and then for 10 days the second time and she is still having trouble with both ears. She is on day 5 of her second antibiotic. Why was appointment not scheduled? Appointment availability did not meet the patient's need. Additional Comments: Patient was hoping to be seen for a same day visit. She is unsure if the spot on her finger is a wart or not, but she would like it looked at. Does message need to be routed?Yes-Action Needed documented in this encounter Plan of Treatment Not on file documented as of this encounter Visit Diagnoses Not on filedocumented in this encounter Care Teams Grocery Clerk Stocking Relationship Specialty Start Date End Date Supriya Hay PA [address] [place] [address] PCP - General Internal Medicine 02/21/20 Helio Carrera MD [address] [place] [address] Referring Physician Obstetrics and Gynecology 09/03/21 documented as of this encounter
--- OUTSIDE RECORDS SUMMARY | 2024-04-01 05:52 | XMS_ITS | Encounter Summary ---
Author Organization [facility] Healthcare Address [address] [place] [address] Care Team Providers Care Eligibility Manager Name Role Phone Supriya Hay Primary Care Provider +1- [phone] Helio Carrera MD Unavailable [phone] Reason for Referral * Cardiology (Routine) - Closed Specialty Diagnoses / Procedures Referred By Melissa t Referred To Contact Diagnoses Edema, lower extremity Procedures Transthoracic Echo (TTE) Complete W Doppler/CF Supriya Hay PA [address] [place] [address] Phone: tel: fax: [address] [address] Referral ID Status Reason Start Date Expiration Date Visits Re quested Visits Authorized [id number] Closed 12/03/2021 01/02/2023 1 1 Reason for Visit * Cardiology (Routine) - Closed Specialty Diagnoses / Procedures Referred By Contac t Referred To Contact Diagnoses Edema, lower extremity Procedures Transthoracic Echo (TTE) Complete W Doppler/CF Supriya Hay PA [address] [place] [address] Phone: tel: fax: [address] [address] Referral ID Status Reason Start Date Expiration Date Visits Re quested Visits Authorized [id number] Closed 12/03/2021 01/02/2023 1 1 Encounter Details Date Type Department Care Team (Latest Contact Info) Description 11/19/2022 3:20 PM CDT - 11/19/2022 11:59 PM CDT Hospital Encounter [facility] Cardiac Testing [address] [place] [address] Edema, lower extremity Discharge Disposition: Discharge to home or self [...] PM CDT Legal Sex Female 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 Adult Echocardiogram + ----- -------+ :Name: AZIZA LOCKHART ?? Study Date: 11/19/2022 ?Status: [facility] ?: : ?Patient Location: [facility] CARD TST^^^MHBHeight: 62 in ?: : ?Weight: 184 lbBP: 109/82 mmHg: :: 1980 ? Gender: Female ?BSA: 1.8 m2 ?: :Reason For Study: edema ?: :Ordering Physician: ?: :SWINIGAN, SUPRIYA ? : :Referring Physician: ? : :SWINIGAN, SUPRIYA R. ?: :Performed By: Stephenie ? : :RIANA Duran ? : + ----- -------+ Procedure A two-dimensional transthoracic echocardiogram with color flow and Doppler was performed. Left Ventricle The left ventricle is normal in size. There is normal left ventricular wall thickness. Left ventricular systolic function is normal. Ejection Fraction = 55-60%. No regional wall motion abnormalities noted. There is no thrombus. Right Ventricle The right ventricle is normal in size and function. There is normal right ventricular wall thickness. The right ventricular systolic function is normal. No regional wall motion abnormalities are noted. Atria The left atrial size is normal. Right atrial size is normal. The interatrial septum is intact with no evidence for an atrial septal defect. Mitral Valve The mitral valve leaflets appear normal. There is no evidence of stenosis, fluttering, or prolapse. There is no mitral valve stenosis. There is trace to mild mitral regurgitation. Tricuspid Valve The tricuspid valve is normal. There is no tricuspid stenosis. There is trace tricuspid regurgitation. Right ventricular systolic pressure is normal. Right ventricular systolic pressure is '16' mm/HG. Aortic Valve Aortic valve structure is normal. No aortic stenosis . No aortic regurgitation is present. Pulmonic Valve The pulmonic valve is not well visualized. There is no pulmonic valvular stenosis. Trace to mild pulmonic valvular regurgitation. Great Vessels The aortic root is not well visualized but is probably normal size. The pulmonary artery is not well visualized, but is probably normal size. IVC appears 'normal' in size. IVC collapses normally with inspiration. Pericardium There is no pericardial effusion. Diastology Mitral inflow pattern is normal. E/E prime ratio is 8 -15 which is in the indeterminate zone. Interpretation Summary The left ventricle is normal in size. There is normal left ventricular wall thickness. Left ventricular systolic function is normal. Ejection Fraction = 55-60%. No prior echo available for comparison. + + :Measurements with Normals ?: :IVSd: ?(0.6-1.2 ?? LVIDd: ?(3.5-5.7 ?? Ao root diam: ?(2.0-3.7 ?? : :0.98 cm ?cm) ?4.2 cm ?cm) ?2.7 cm ? cm) ?: :LVPWd: ? (0.6-1.1 ?? LVIDs: ?(3.1-4.6 ?? LA dimension: ?(1.9-4.0 ?? : :0.90 cm ?cm) ?2.8 cm ?cm) ?3.0 cm ? cm) ?: + + MMode/2D Measurements & Calculations RVDd: 2.6 cm FS: 34.2 % ?Ao root area: 5.7 cm2 ??LVOT diam: 1.9 cm ? EDV(Teich): 77.7 ml ?LVOT area: 2.8 cm2 ? ESV(Teich): 28.3 ml Doppler Measurements & Calculations MV E max zev: ? Ao V2 max: ?LV V1 max PG: ? TV V2 max: 67.7 cm/sec ? 125.0 cm/sec ?4.2 mmHg ?49.3 cm/sec MV A max zev: ? Ao max P.3 mmHg LV V1 max: ?TV max P.0 cm/sec ? IRMA(V,D): 2.3 cm2 ?? 102.0 cm/sec ?0.97 mmHg MV E/A: 1.3 ? PA V2 max: ?RV V1 max: ?TR max zev: ? RAP systole: 82.5 cm/sec ? 57.8 cm/sec ? 149.0 cm/sec ?3.0 mmHg PA max P.7 mmHg ? TR max P.9 mmHg ?RVSP(TR): 11.9 mmHg Electronically signed by: Damon Alvares MD 11/26/2022 08:14 PM Procedure Note Damon Alvares MD - 11/26/2022 Adult Echocardiogram + ----- -------+ :Name: AZIZA LOCKHART Study Date: 11/19/2022 Status: [facility]: : Patient [facility]^^^MHBHeight: 62in : : Weight: 184lbBP: 109/82 mmHg: :: 1980 Gender: Female BSA: 1.8 m2: :Reason For Study: edema: :Ordering Physician:: :SUPRIYA HAY: :Referring Physician:: :SUPRIYA HAY: :Performed By: Stephenie: :RIANA Duran: + ----- -------+ Procedure A two-dimensional transthoracic echocardiogram with color flow and Dopplerwas performed. Left Ventricle The left ventricle is normal in size. There is normal left ventricularwall thickness. Left ventricular systolic function is normal. Ejection Fraction= 55-60%. No regional wall motion abnormalities noted. There is nothrombus. Right Ventricle The right ventricle is normal in size and function. There is normalright ventricular wall thickness. The right ventricular systolic function isnormal. No regional wall motion abnormalities are noted. Atria The left atrial size is normal. Right atrial size is normal. Theinteratrial septum is intact with no evidence for an atrial septal defect. Mitral Valve The mitral valve leaflets appear normal. There is no evidence ofstenosis, fluttering, or prolapse. There is no mitral valve stenosis. There is traceto mild mitral regurgitation. Tricuspid Valve The tricuspid valve is normal. There is no tricuspid stenosis. There istrace tricuspid regurgitation. Right ventricular systolic pressure is normal.Right ventricular systolic pressure is '16' mm/HG. Aortic Valve Aortic valve structure is normal. No aortic stenosis . No aorticregurgitation is present. Pulmonic Valve The pulmonic valve is not well visualized. There is no pulmonic valvular stenosis. Trace to mild pulmonic valvular regurgitation. Great Vessels The aortic root is not well visualized but is probably normal size. The pulmonary artery is not well visualized, but is probably normal size.IVC appears 'normal' in size. IVC collapses normally with inspiration. Pericardium There is no pericardial effusion. Diastology Mitral inflow pattern is normal. E/E prime ratio is 8 -15 which is inthe indeterminate zone. Interpretation Summary The left ventricle is normal in size. There is normal left ventricular wall thickness. Left ventricular systolic function is normal. Ejection Fraction = 55-60%. No prior echo available for comparison. + + :Measurements with Normals: :IVSd: (0.6-1.2 LVIDd: (3.5-5.7 Ao root diam:(2.0-3.7 : :0.98 cm cm) 4.2 cm cm) 2.7 cm cm): :LVPWd: (0.6-1.1 LVIDs: (3.1-4.6 LA dimension:(1.9-4.0 : :0.90 cm cm) 2.8 cm cm) 3.0 cm cm): + + MMode/2D Measurements & Calculations RVDd: 2.6 cm FS: 34.2 % Ao root area: 5.7 cm2 LVOT diam: 1.9cm EDV(Teich): 77.7 ml LVOT area: 2.8cm2 ESV(Teich): 28.3 ml Doppler Measurements & Calculations MV E max zev: Ao V2 max: LV V1 max PG: TV V2 max: 67.7 cm/sec 125.0 cm/sec 4.2 mmHg 49.3 cm/sec MV A max zev: Ao max P.3 mmHg LV V1 max: TV max P.0 cm/sec IRMA(V,D): 2.3 cm2 102.0 cm/sec 0.97 mmHg MV E/A: 1.3 PA V2 max: RV V1 max: TR max zev: RAP systole: 82.5 cm/sec 57.8 cm/sec 149.0 cm/sec 3.0 mmHg PA max P.7 mmHg TR max P.9 mmHg RVSP(TR): 11.9 mmHg Electronically signed by: Damon Alvares MD 11/26/2022 08:14 PM us Supriya HERNANDEZ CV ECHO PROCEDURES Final R esult documented in this encounter Visit Diagnoses Diagnosis Edema, lower extremity documented in this encounter Care Teams Eligibility Manager Relationship Specialty Start Date End Date Supriya Hay PA [address] [facility] [address] [place] [address] PCP - General Internal Medicine 02/21/20 Helio Carrera MD [address] [place] [address] Referring Physician Obstetrics and Gynecology 09/03/21 documented as of this encounter
--- OUTSIDE RECORDS SUMMARY | 2024-04-01 05:52 | XMS_ITS | Encounter Summary ---
Author Organization [facility] Address [address] [place] [address] Phone Care Team Providers Care Racking Technician Name Role Phone Supriya Hay Primary Care Provider +1- [phone] Helio Carrera MD Unavailable [phone]- [phone] Reason for Visit * Reason Onset Date Comments Ultrasound 06/18/2023 Encounter Details Date Type Department Care Team (Late st Contact Info) Description 06/18/2023 Telephone [facility] Maternal- Medicine [facility] 7th Floor [address] [place] [address] Luciana Fuller, [facility] Ultrasound Social History Tobacco Use Types Packs/Day Years [...] PM CDT 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 Gender Identity Female 11/16/2022 3:54 PM CDT Sexual Orientation Straight 11/16/2022 3: 54 PM CDT documented as of this encounter Miscellaneous Notes * Telephone Encounter - Luciana Fuller CMA - 06/18/2023 11:51 AM CDT 06/17: LVM for Aziza to call and schedule her pelvis ultrasound documented in this encounter Plan of Treatment Not on file documented as of this encounter Visit Diagnoses Not on filedocumented in this encounter Care Teams Racking Technician Relationship Specialty Start Date End Date Supriya Hay PA [address] [place] [address] PCP - General Internal Medicine 02/21/20 Helio Carrera MD [address] [place] [address] Referring Physician Obstetrics and Gynecology 09/03/21 documented as of this encounter
--- OUTSIDE RECORDS SUMMARY | 2024-04-01 05:52 | XMS_ITS | Encounter Summary ---
Author Organization [facility] Healthcare Address [address] [place] [address] Care Team Providers Care Airport Ramp Attendant Name Role Phone Supriya Hay Primary Care Provider +1- [phone] Helio Carrera MD Unavailable [phone] Reason for Referral * Diagnostic Imaging (Routine) - Closed Specialty Diagnoses / Procedures Referred By Contac t Referred To Contact Diagnoses Menorrhagia with irregular cycle Procedures US Pelvis Complete Anabell Palomares NP [address] [place] [address] Phone: tel: fax: [facility] (All Locations) Referral ID Status Reason Start Date Expiration Date Visits Re quested Visits Authorized [id number] Closed 07/16/2022 08/15/2023 1 1 Reason for Visit * Diagnostic Imaging (Routine) - Closed Specialty Diagnoses / Procedures Referred By Contac t Referred To Contact Diagnoses Menorrhagia with irregular cycle Procedures US Pelvis Complete Anabell Palomares NP [address] [place] [address] Phone: tel: fax: [facility] (All Locations) Referral ID Status Reason Start Date Expiration Date Visits Re quested Visits Authorized [id number] Closed 07/16/2022 08/15/2023 1 1 Encounter Details Date Type Department Care Team (Latest Contact Info) Description 08/14/2022 2:14 PM CDT - 08/14/2022 11:59 PM CDT Hospital Encounter [facility] for Outpatient [facility] - Ultrasound [address]th [address], [address] [place] [address] Menorrhagia with irregular cycle Discharge Disposition: Discharge to home or self [...] PM CDT Legal Sex Female 12:02 AM 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 Gender Identity Female 11/16/2022 3:54 PM CDT [...] DAILY 30 tablet 01/01/2022 05/31/2023 [facility] relugolix/E2/SHIVA (2021--034/MVT- 601-050) 40 mg/1 mg/0.5 mg tablet Take 1 tablet by mouth daily 365 tablet 05/19/2022 11/16/2022 documented as of this encounter Discharge Disposition Disposition Code Departure Means Destination Discharge to home or self care documented in this encounter Plan of Treatment Not on file documented as of this encounter Procedures Procedure Name Priority Date/Time Associated Diagnosis Comments US PELVIS COMPLETE Schedule Routine, Read Routine (OP Routine) 08/14/2022 2:14 PM CDT Menorrhagia with irregular cycle documented in this encounter Results * US Pelvis Complete (08/14/2022 2:14 PM CDT) Cul de Sac No free fluid visualized VIEWPOINT Endometrial Thickness 3.4 mm&millim eters VIEWPOINT Anatomical Region Laterality Modality Pelvis N/A Ultrasound 08/14/2022 2:15 PM CDT Impressions 08/14/2022 3:54 PM CDT 1. Anteverted, myomatous uterus. Multiple myomas identified, as measured above.2. Suspected adenomyosis. Myometrium appears heterogenous with diffuse bulkiness. Endometrial-myometrial interface is not well defined. Subendometrial linear striations with posterior acoustic shadowing are noted. 3. Normal appearing endometrium. No focal endometrial lesions.4. Normal ovaries bilaterally. No adnexal masses were seen.5. No free fluid in the pelvis. Narrative Procedure Note Cecelia Velazquez MD - 08/14/2022 IMPRESSION: 1. Anteverted, myomatous uterus. Multiple myomas identified, as measuredabove.2. Suspected adenomyosis. Myometrium appears heterogenous withdiffuse bulkiness. Endometrial-myometrial interface is not well defined.Subendometrial linear striations with posterior acoustic shadowing arenoted. 3. Normal appearing endometrium. No focal endometrial lesions.4.Normal ovaries bilaterally. No adnexal masses were seen.5. No free fluidin the pelvis. Anabell Palomares TIRE BAGGER IMG US PROCEDURES Final Result documented in this encounter Visit Diagnoses Diagnosis Menorrhagia with irregular cycle documented in this encounter Care Teams Airport Ramp Attendant Relationship Specialty Start Date End Date Supriya Hay PA [address] [facility] [address] [place] [address] PCP - General Internal Medicine 02/21/20 Helio Carrera MD [address] [place] [address] Referring Physician Obstetrics and Gynecology 09/03/21 documented as of this encounter
--- OUTSIDE RECORDS SUMMARY | 2024-04-01 05:52 | XMS_ITS | Encounter Summary ---
Author Organization [facility] Address [address] [place] [address] Phone Care Team Providers Care Stores Naval Name Role Phone Supriya Hay Primary Care Provider +1- [phone] Helio Carrera MD Unavailable Reason for Visit * Reason Comments Labs Only Encounter Details Date Type Department Care Team (Latest Contact Info) Description 09/14/2022 2:15 PM CDT Procedure visit 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 Pt tolerated well. documented in this encounter Plan of Treatment Not on file documented as of this encounter Visit Diagnoses Diagnosis Intramural leiomyoma of uterus [D25.1 (ICD-10-CM)]- Primary Intramural leiomyoma of uterus documented in this encounter Care Teams Stores Naval Relationship Specialty Start Date End Date Supriya Hay PA [address] [place] [address] PCP - General Internal Medicine 02/21/20 Helio Carrera MD [address] [place] [address] Referring Physician Obstetrics and Gynecology 09/03/21 documented as of this encounter
--- OUTSIDE RECORDS SUMMARY | 2024-04-01 05:52 | XMS_ITS | Encounter Summary ---
Author Organization [facility] Address [address] [place] [address] Phone Care Team Providers Care Parachute Supervisor Name Role Phone Supriya Hay Primary Care Provider +1- [phone] Helio Carrera MD Unavailable +1- [phone] Encounter Details Date Type Department Care Team (Late st Contact Info) Description 09/03/[address] 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 Gender Identity Female 11/16/2022 3:54 PM CDT Sexual Orientation Straight 11/16/2022 3: 54 PM CDT documented as of this encounter Miscellaneous Notes * Telephone Encounter - Anabell Palomares NP - 09/03/2022 11:16 AM CDT Late entry: Patient called on August 21, advise patient on her ultrasound report, advise patient based on images of her myometrium there is some suspected adenomyosis, ovaries are normal, no adnexal masses or seen, multiple myomas were identified, all myomas were subserosal to posterior 1 anterior and 1 on the right lateral wall, educated patient is her increase in bleeding following IUD removal could be explained by these myomas and presence of adenomyosis, however expect her myfembree medication to control the bleeding long-term, patient verbalized understanding, questions were answered. Hernext research appointment is on September 23 documented in this encounter Plan of Treatment Not on file documented as of this encounter Visit Diagnoses Not on filedocumented in this encounter Care Teams Parachute Supervisor Relationship Specialty Start Date End Date Supriya Hay PA [address] [place] [address] PCP - General Internal Medicine 02/21/20 Helio Carrera MD [address] [place] [address] Referring Physician Obstetrics and Gynecology 09/03/21 documented as of this encounter
--- OUTSIDE RECORDS SUMMARY | 2024-04-01 05:52 | XMS_ITS | Encounter Summary ---
Author Organization [facility] Address [address] [place] [address] Phone Care Team Providers Care Regional Office Coordinator Name Role Phone Supriya Hay Primary Care Provider +1- [phone] Helio Carrera MD Unavailable +1- [phone] Encounter Details Date Type Department Care Team (Late st Contact Info) Description 05/15/2022 Orders Only [facility] Obstetrics and Gynecology [address] [facility] Outpatient Health 7th Floor [address] [place] [address] Percy Hutchinson MD [address] [facility] [phone] [place], [place] [id number] Intrauterine contraceptive device threads lost, initial encounter (Primary Dx) Social History Tobacco Use Types [...] PM CDT Legal Sex Female 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 Gender Identity Female 11/16/2022 3:54 PM CDT Sexual Orientation Straight 11/16/2022 3: 54 PM CDT documented as of this encounter Plan of Treatment Not on file documented as of this encounter Visit Diagnoses Diagnosis Intrauterine contraceptive device threads lost, initial encounter- Primary documented in this encounter Care Teams Regional Office Coordinator Relationship Specialty Start Date End Date Supriya Hay PA [address] [facility] [address] [place] [address] PCP - General Internal Medicine 02/21/20 Helio Carrera MD [address] [place] [address] Referring Physician Obstetrics and Gynecology 09/03/21 documented as of this encounter
--- OUTSIDE RECORDS SUMMARY | 2024-04-01 05:52 | XMS_ITS | Encounter Summary ---
Author Organization [facility] Address [address] [place] [address] Phone Care Team Providers Care Cement Truck Driver Name Role Phone Supriya Hay Primary Care Provider [phone]- [phone] Helio Carrera MD Unavailable [phone] Reason for Visit * Reason Onset Date Comments Contraception 05/13/2023 Encounter Details Date Type Department Care Team (Late st Contact Info) Description 05/13/2023 Telephone [facility] Obstetrics and Gynecology [address] [facility] 7th Floor [address] [place] [address] Percy Hutchinson MD [address] [facility] [phone] [place] [address] Contraception Social History Tobacco Use Types Packs/Day Years [...] CDT Legal Sex Female 12:02 AM MANAGER CLINIC Gender Identity Female 11/16/2022 3:54 PM CDT Sexual Orientation Straight 11/16/2022 3: 54 PM CDT documented as of this encounter Miscellaneous Notes * Telephone Encounter - Percy Hutchinson MD - 05/13/2023 11:58 AM MANAGER CLINIC Pt called to f/u regarding note below. VM Left. Given review of her hx and desire to stay on VERA she could start Rx for Junel 04/10 as the 1mg NE and 20 mcg ethinyl estradiol is more similar to current Myfembree and she can take this continuously (no placebos) for menstrual suppression. Will need todiscuss her pelvic pain and desire to start Rx for VERA w her. Chart review indicates she received Rx for Rx for Macrobid and fluconazole on 05/11/23. Will need to see if sx improved. Received following note from [employer] Trial research coordinator: Visit 7 (last visit) is approaching. Her last dose is 05/17, but Visit 7 is supposed to occur 2 weeks after the subject???s last dose (05/30). The patient will need to begin contraception to avoid return of symptoms and , but unfortunately the study does not have any visits between the last dose and Visit 7. We have provided contraceptive counseling to her on 04/12, and she expressed wanting to begin another VERA. She???d like it to manage her pelvic pain and heavy bleeding. We discussed the potential to use one continuously and maybe something with similar dosing to Myfembree. She???d love not having a period at all, but is mostly concerned with managing the heavy bleeding and pelvic pain. She???s been counseled that there are no guarantees that a period will stop with the use of certain pills. She was planning on being able to speak with you during Visit 7 (which we originally thought was on the day of her last dose), but she will need a prescription for a VERA prior to avoid a 2 week gap. I just spoke with her to explain the change in Visit 7 timing and we reviewed hIUD options, Nexplanon, the patch, and COCs as she seemed to be unsure if she wanted another pill. After explaining those options and their potential bleeding patterns, she wants to still move forward with a VERA. I told her visit 7 would then be a good time for her to follow up on the new pill she???s started and ask questions/express concerns at that time. Based off her goals and having uterine fibroids, do you have a recommendation for a VERA for her to begin? We have approval from the sponsor for patients to begin contraception before visit 7. Mary said for LNG, you were able to send in a prescription for the patient for 12 months with the patient???s understanding they needed to return to their non-study provider or establish care here for future care. If you???re comfortable doing so, we would have you send the prescription in to her pharmacy (near her last dose 05/17) so she can avoid a gap in contraception. Her insurance is up to date in her chart ([employer] [facility], [facility]). During my call with her today, she also mentioned having the worst pelvic pain that she has ever had. It is intermittent, usually in the lower, left pubic region and started last Wednesday, 04/30. She hashad some relief with taking 800 mg ibuprofen PRN, but the pain will have her hunched over and she tries not to move during the pain or it worsens. She reported no triggers or other symptoms. You previously evaluated her on 11/16/22 for what sounds like identical pelvic pain that???s now worse, but at that time she was having some urinary symptoms as well (which did not result in any diagnoses). I advised her to seek emergency care if she felt it was necessary. Would you like us to bring her in for another unscheduled visit to evaluate? She mentioned potentially making an appointment with her own pantograph watcher provider. [facility] documented in this encounter Plan of Treatment Not on file documented as of this encounter Visit Diagnoses Diagnosis Intramural leiomyoma of uterus- Primary Research study patient documented in this encounter Historical Medications * This list may reflect changes made after this encounter. fluconazole (DIFLUCAN) 150 mg tablet Take 1 tablet (150 mg total) by mouth once 05/11/2023 05/31/2023 nitrofurantoin monohydrate (MACROBID) 100 mg capsule Take 1 capsule (100 mg total) by mouth 2 (two) times a day 05/11/2023 05/31/2023 added in this encounter Care Teams Cement Truck Driver Relationship Specialty Start Date End Date Supriya Hay PA [address] [facility] [address] [place] [address] PCP - General Internal Medicine 02/21/20 Helio Carrera MD [address] [facility] [address] [place] [address] Referring Physician Obstetrics and Gynecology 09/03/21 documented as of this encounter
--- OUTSIDE RECORDS SUMMARY | 2024-04-01 05:52 | XMS_ITS | Encounter Summary ---
Author Organization [facility] Address [address] [place] [address] Care Team Providers Care Pharmaceutical Botanist Name Role Phone Supriya Hay Primary Care Provider +1- [phone] Helio Carrera MD Unavailable +1- [phone] Reason for Visit * Reason Comments Chroninc concerns Pt presents today fo r possible URI. Pt sx, cough, congestion & phlegm that is not productive. Pt would like to be referred to ENT for ears & tongue. Pt is having issues with her ears being clogged. Pt also reporting bumps on the tip of her tongue. Pt is also reporting left foot pain, that comes and goes. Encounter Details Date Type Department Care Team (Late st Contact Info) Description 01/13/2023 11:30 AM CDT Office Visit [facility] Family Medicine [address] [place] [address] Supriya Hay PA [facility] [facility] [email or web address] [place] [address] Respiratory infection (Primary Dx); Lipid screening; Mixed hyperlipidemia; Other fatigue; Diabetes mellitus screening; BMI 34.0-34.9,adult; Obesity (BMI 30-39.9) Social History Tobacco Use Types Packs/Day Years [...] PM CDT Legal Sex Female 12:02 AM CARDIAC EXERCISE SPECIALIST Gender Identity Female 11/16/2022 3:54 PM CDT Sexual Orientation Straight 11/16/2022 3: 54 PM CDT documented as of this encounter Last Filed Vital Signs Vital Sign Reading Time Taken Comments Blood Pressure 108/62 01/13/2023 11:44 AM CDT Pulse 83 01/13/2023 11:44 AM CDT Temperature 37.1 ??C (98.8 ??F) 01/13/2023 11:44 AM C DT Respiratory Rate - - Oxygen Saturation 99% 01/13/2023 11:44 AM CDT Inhaled Oxygen Concentration - - Weight 84.9 kg (187 lb 3.2 oz) 01/13/2023 11:44 AM CDT Height 157.5 cm (5' 2.01 ) 01/13/2023 11:44 AM C DT Body Mass Index 34.23 01/13/2023 11:44 AM CDT documented in this encounter Ordered Prescriptions Prescription Sig Dispense Quantity Refills Last Filled Start Date End Date ondansetron ODT (ZOFRAN-ODT) 4 mg disintegrating tablet Take 1 tablet (4 mg total) by mouth every 8 (eight) hours as needed for nausea or vomiting 20 tablet 01/13/2023 3 fluconazole (DIFLUCAN) 150 mg tablet Take 1 tablet (150 mg total) by mouth once for 1 dose 1 tablet 01/13/2023 3 amoxicillin (AMOXIL) 500 mg tablet/capsule Take 1 tablet/capsule (500 mg total) by mouth 3 (three) times a day for 10 days 30 tablet/capsul e 01/13/2023 3 documented in this encounter Progress Notes * Supriya Hay PA - 01/13/2023 11:30 AM CDT Images from the original note were not included. Subjective/Objective Patient ID: Aziza Lockhart is a 42 y.o. female. Chief Complaint Chroninc concerns (Pt presents today for possible URI. Pt sx, cough, congestion & phlegm that is not productive. Pt would like to be referred to ENT for ears & tongue. Pt is having issues with her ears being clogged. Pt also reporting bumps on the tip of her tongue. Pt is also reporting left foot pain, that comes and goes. ) HPI Patient presents with a 2 weeks of coughing to the point of almost throwing up . No fever chills or sweats. Sneezing. Tyelnol severe cold and Theraflu OCP for birthcontrol and taking as instructed. Review of Systems See HPI Vitals: 01/13/23 1144 BP: 108/62 BP Location: Left arm Patient Position: Sitting Pulse: 83 Temp: 37.1 ??C (98.8 ??F) TempSrc: Oral SpO2: 99% Weight: 84.9 kg (187 lb 3.2 oz) Height: 157.5 cm (5' 2.01 ) Physical Exam Constitutional: Appearance: She is well-developed. HENT: Head: Normocephalic and atraumatic. Cardiovascular: Rate and Rhythm: Normal rate and regular rhythm. Pulmonary: Effort: Pulmonary effort is normal. Breath sounds: Wheezing present. Assessment/Plan Diagnoses and all orders for this visit: Respiratory infection (J98.8) (Primary) Assessment & Plan: Start antibiotic, antihistamine (Claritin OR Zyrtec), Mucinex 12hour and Steroid nasal spray (Flonase). Push fluids. Rest. Supportive care. If sxs worsen or don\'t improve, pt is to followup in the office. Patient struggles with yeast infections when she is on an antibiotic so will send out a Diflucan. Lipid screening (Z13.220) Assessment & Plan: Check labs Mixed hyperlipidemia (E78.2) Assessment & Plan: Encouraged patient to follow low fat/low chol diet like the Mediterranean diet. Increase good fats in the diet. Increase exercise. Monitor labs as needed. Orders: - Comprehensive metabolic panel; Future - Lipid panel; Future Other fatigue (R53.83) Assessment & Plan: Probably multifactorial. Check labs and followup to re-evaluate Orders: - CBC with auto differential; Future - TSH; Future Diabetes mellitus screening (Z13.1) Assessment & Plan: Check labs Orders: - Hemoglobin A1c; Future BMI 34.0-34.9,adult (Z68.34) Assessment & Plan: Discussed the patient's BMI. The BMI is above average. BMI management plan is completed. BMI Follow-up includes: nutrition counseling, exercise counseling and education provided. Obesity (BMI 30-39.9) (E66.9) Assessment & Plan: Discussed the patient's BMI. The BMI is above average. BMI management plan is completed. BMI Follow-up includes: nutrition counseling, exercise counseling and education provided. Other orders - amoxicillin (AMOXIL) 500 mg tablet/capsule; Take 1 tablet/capsule (500 mg total) by mouth 3 (three) times a day for 10 days - fluconazole (DIFLUCAN) 150 mg tablet; Take 1 tablet (150 mg total) by mouth once for 1 dose *This note is dictated using ONEPLE voice recognition software, variances in spelling and vocabulary are possible and unintentional.* Supriya Hay PA-C IAC EXERCISE SPECIALIST documented in this encounter Miscellaneous Notes * Assessment & Plan Note - Supriya Hay PA - 01/24/2023 9:57 PM CARDIAC EXERCISE SPECIALIST Associated Problem(s): Mixed hyperlipidemia Encouraged patient to follow low fat/low chol diet like the Mediterranean diet. Increase good fats in the diet. Increase exercise. Monitor labs as needed. IAC EXERCISE SPECIALIST * Assessment & Plan Note - Supriya Hay PA - 01/24/2023 9:57 PM CARDIAC EXERCISE SPECIALIST Associated Problem(s): Other fatigue (Resolved 10/05/2023) Probably multifactorial. Check labs and followup to re-evaluate IAC EXERCISE SPECIALIST * Assessment & Plan Note - Supriya Hay PA - 01/24/2023 9:57 PM CARDIAC EXERCISE SPECIALIST Associated Problem(s): Lipid screening (Resolved 10/05/2023) Check labs IAC EXERCISE SPECIALIST * Assessment & Plan Note - Supriya Hay PA - 01/24/2023 9:57 PM CARDIAC EXERCISE SPECIALIST Associated Problem(s): Diabetes mellitus screening (Resolved 10/05/2023) Check labs IAC EXERCISE SPECIALIST * Assessment & Plan Note - Supriya Hay PA - 01/24/2023 9:57 PM CARDIAC EXERCISE SPECIALIST Associated Problem(s): Respiratory infection Start antibiotic, antihistamine (Claritin OR Zyrtec), Mucinex 12hour and Steroid nasal spray (Flonase). Push fluids. Rest. Supportive care. If sxs worsen or don\'t improve, pt is to followup in the office. Patient struggles with yeast infections when she is on an antibiotic so will send out a Diflucan. IAC EXERCISE SPECIALIST IAC EXERCISE SPECIALIST * Assessment & Plan Note - Jailene Phillips MA - 01/13/2023 11:50 AM CDT Associated Problem(s): Obesity (BMI 30.0-34.9) Discussed the patient's BMI. The BMI is above average. BMI management plan is completed. BMI Follow-up includes: nutrition counseling, exercise counseling and education provided. * Assessment & Plan Note - Jailene Phillips MA - 01/13/2023 11:50 AM CDT Associated Problem(s): BMI 33.0-33.9,adult Discussed the patient's BMI. The BMI is above average. BMI management plan is completed. BMI Follow-up includes: nutrition counseling, exercise counseling and education provided. * Addendum Note - Glen Reyes - 01/13/2023 11:30 AM CDTAddended by: GLEN REYES on: 09/07/2023 03:21 PM Modules accepted: Orders * Addendum Note - Glen Reyes - 01/13/2023 11:30 AM CDTAddended by: GLEN REYES on: 09/07/2023 03:21 PM Modules accepted: Orders documented in this encounter Plan of Treatment Not on file documented as of this encounter Results * TSH (09/07/2023 3:26 PM CDT) Thyroid Stimulating Hormone 1.57 0.30 - 4.20 mcIUnit/mL Blood 09/07/2023 3:26 PM CDT 09/07/2023 4:32 PM CDT us Supriya HERNANDEZ LAB BLOOD ORDERABLES Final Result [id number] [address] [facility] Department [place] [address] * Lipid panel (09/07/2023 3:26 PM CDT) Cholesterol 197 30 - 199 mg/dL Comment: [...] on 2017. Triglycerides 85 <=149 mg/dL [facility] Comment: Interpretive Data Ages < or = [...] on 2017. HDL 52 >=40 mg/dL [facility] Comment: Interpretive Data Ages < or = [...] BLOOD ORDERABLES Final Result Performing Organization Address [facility] de Phone Number ELIJAH [address] [address] * (ABNORMAL) Hemoglobin A1c (09/07/2023 3:26 PM CDT) Hgb A1C 5.9(H) 4.0 - 5.6 % Estimated Average Glucose 123 mg/dL [facility] Comment: The ADA recommends reporting an estimated Average Glucose (eAG) with all Hemoglobin A1c results using the equation derived from a study of 507 normal and diabetic adults. ??Minority populations were underrepresented and children were not included. ?? (Diabetes Care 31:8589-9622, 2008). ??The eAG is not equivalent to a fasting glucose. Blood 09/07/2023 3:26 PM CDT 09/07/2023 4:39 PM CDT Supriya HERNANDEZ LAB BLOOD ORDERABLES Final Result Performing Organization Address [facility] de Phone Number ELIJAH [address] [address] * Comprehensive metabolic panel (09/07/2023 3:26 PM CDT) Sodium 140 135 - 145 mmol/L Potassium, pl 3.7 3.3 - 4.9 mmol/L [facility] Chloride 106 97 - 110 mmol/L [facility] CO2 23 22 - 32 mmol/L [facility] Anion gap 11 2 - 15 mmol/L [facility] BUN 8 6 - 25 mg/dL [facility] Creatinine 0.71 0.60 - 1.10 mg/dL [facility] Glucose 103 70 - 199 mg/dL [facility] Comment: Interpretive Data Fasting glucose >/= 126 [...] 8.5 8.5 - 10.3 mg/dL [facility] Bilirubin, total 0.3 0.1 - 1.2 mg/dL [facility] Protein, pl 7.0 6.5 - 8.5 g/dL [facility] Albumin 4.0 3.5 - 5.0 g/dL [facility] Alk phos 76 40 - 130 Units/L [facility] ALT 16 7 - 45 Units/L [facility] AST 15 10 - 45 Units/L [facility] Blood 09/07/2023 3:26 PM CDT 09/07/2023 4:32 PM CDT Supriya HERNANDEZ LAB BLOOD ORDERABLES Final Result [facility] [address] [facility] Department [place] [address] * CBC with auto differential (09/07/2023 3:26 PM CDT) WBC 7.3 3.8 - 9.9 K/cumm Hgb 12.6 11.9 - 15.5 g/dL [facility] Hct 38.0 35.6 - 45.5 % [facility] Plt 308 150 - 400 K/cumm [facility] MPV 11.5 9.1 - 12.3 fL [facility] RBC 4.27 3.90 - 5.20 M/cumm [facility] MCV 89.0 81.3 - 96.4 fL [facility] MCH 29.5 27.1 - 33.3 pg [facility] MCHC 33.2 32.3 - 35.7 g/dL [facility] RDW CV 14.3 11.1 - 14.9 % [facility] RDW SD 45.8 35.7 - 48.1 fL [facility] NRBC abs 0.00 0.00 - 0.01 K/cumm [facility] Blood 09/07/2023 3:26 PM CDT 09/07/2023 4:39 PM CDT Supriya HERNANDEZ LAB BLOOD ORDERABLES Final Result [facility] [address] [facility] Department [place] [address] documented in this encounter Visit Diagnoses Diagnosis Respiratory infection- Primary Other diseases of respiratory system, not elsewhere classified Lipid screening Screening for lipoid disorders Mixed hyperlipidemia Other fatigue Diabetes mellitus screening Screening for diabetes mellitus BMI 34.0-34.9,adult Obesity (BMI 30-39.9) documented in this encounter Historical Medications * This list may reflect changes made after this encounter. dicyclomine (BENTYL) 20 mg tablet Take 1 tablet (20 mg total) by mouth every 6 (six) hours added in this encounter Care Teams Pharmaceutical Botanist Relationship Specialty Start Date End Date Supriya Hay PA [address] [facility] [address] [place] [address] PCP - General Internal Medicine 02/21/20 Helio Carrera MD [address] [place] [address] Referring Physician Obstetrics and Gynecology 09/03/21 documented as of this encounter
--- OUTSIDE RECORDS SUMMARY | 2024-04-01 05:52 | XMS_ITS | Encounter Summary ---
Author Organization [facility] Healthcare Address [address] [place] [address] Care Team Providers Care Starting Sheet Tank Operator Name Role Phone Supriya Hay Primary Care Provider +1- [phone] Helio Carrera MD Unavailable +1- [phone] Reason for Visit * Reason Onset Date Comments Med Refill 04/23/2023 Encounter Details Date Type Department Care Team (Late st Contact Info) Description 04/23/2023 Telephone [facility] Family Medicine [address] [place] [address] Supriya Hay PA [address] [place] [address] Med Refill Social History Tobacco Use Types Packs/Day Years [...] PM CDT Legal Sex Female 12:02 AM PRECISION HONER Gender Identity Female 11/16/2022 3:54 PM CDT Sexual Orientation Straight 11/16/2022 3: 54 PM CDT documented as of this encounter Miscellaneous Notes * Telephone Encounter - Deyanira Coronel MA - 04/26/2023 6:40 AM CST Medication is pending in patient chart. ISION HONER * Telephone Encounter - BijalJune - 04/23/2023 4:29 PM CST Medication Question/Clarification Medication Name(s): ondansetron ODT (ZOFRAN-ODT) 4 mg What is the question or clarification needed? Pt states need a refill cannot keep anything down If needed, Pharmacy(s) medication(s) should be sent to: [id number] [place] [address] [facility] Additional Comments: please call if needed Does message need to be routed? Yes-Action Needed ISION HONER documented in this encounter Plan of Treatment Not on file documented as of this encounter Visit Diagnoses Not on filedocumented in this encounter Care Teams Starting Sheet Tank Operator Relationship Specialty Start Date End Date Supriya Hay PA [address] [place] [address] PCP - General Internal Medicine 02/21/20 Helio Carrera MD [address] [place] [address] Referring Physician Obstetrics and Gynecology 09/03/21 documented as of this encounter
--- OUTSIDE RECORDS SUMMARY | 2024-04-01 05:52 | XMS_ITS | Encounter Summary ---
Author Organization [facility] Address [address] [place] [address] Phone Care Team Providers Care Magnaflux Operator Name Role Phone Supriya Hay Primary Care Provider [phone]- [phone] Helio Carrera MD Unavailable Reason for Visit * Reason Comments Pelvic Pain Research Difficulty Urinating Encounter Details Date Type Department Care Team (Late st Contact Info) Description 11/16/2022 2:30 PM CDT Office Visit [facility] Obstetrics and Gynecology [facility] 7th [address] [place] [address] 7, Ob [facility] Provider 3 [facility] Research study patient (Primary Dx); Pelvic and perineal pain; Intramural leiomyoma of uterus; Urinary frequency; Vaginal odor Social History Tobacco Use Types Packs/Day Years [...] PM CDT Legal Sex Female 12:02 AM REFLESHER Gender Identity Female 11/16/2022 3:54 PM CDT Sexual Orientation Straight 11/16/2022 3: 54 PM CDT documented as of this encounter Last Filed Vital Signs Vital Sign Reading Time Taken Comments Blood Pressure 109/82 11/16/2022 3:54 PM CDT Pulse - - Temperature - - Respiratory Rate - - Oxygen Saturation - - Inhaled Oxygen Concentration - - Weight 83.7 kg (184 lb 9.6 oz) 11/16/2022 3:54 P M CDT Height 157.5 cm (5' 2.01 ) 11/16/2022 3:54 PM CD T Body Mass Index 33.75 11/16/2022 3:54 PM CDT documented in this encounter Ordered Prescriptions Prescription Sig Dispense Quantity Refills Last Filled Start Date End Date [facility] relugolix/E2/SHIVA (/T) 40 mg/1 mg/0.5 mg tabletIndications: Intramural leiomyoma of uterus,Research study patient Take 1 tablet by mouth daily 365 tablet 11/16/2022 05/31/2023 documented in this encounter Progress Notes * Percy Hutchinson MD - 11/16/2022 2:30 PM CDT Patient ID: Aziza Lockhart is a 42 y.o. female Subjective Chief Complaint: Pelvic Pain and Research HPI: 42 y.o. with PMH significant for fibroid uterus who presents for eval of LLQ pelvic pain for past month. She is been on reulogolix, norethindrone, ethinyl estradiol combination therapy for contraception under research protocol in the setting of known fibroid uterus. While she has had periods of time with no bleeding, she reports return of menstrual cycle last week and reports cramping across her lower pelvis that is sometimes shoots down her legs similar to her prior menstrual cycles. This is different than the pain that brought her in today which is specifically more sharp and in theleft lower quadrant neck can stop her in her tracks. She reports this left lower quadrant pain can be 9/10 but improved to 0/10 with 800 mg of ibuprofen. Sometimes she is to take ibuprofen more than once a day, but overall the pain generally lasts from half an hour to hours. She denies any specificphysical activity that tends to be associated with the onset of the pain, any obvious exacerbating factors for this sharp left lower quadrant pain or any relieving factors beyond the ibuprofen. She also proximally 1 month of increased urinary frequency with need to get up to the bathroom 3-4 times at night. She denies any leakage. She does report sometimes it feels irritated and reyna when she urinates and has a bad odor. She also notes some vaginal odor and she is unclear if she was in the discharge. She reports she is had BV in the past, this feels different. 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 All necessary changes were made in her chart to reflect updates. Objective There were no vitals taken for this visit. Physical Exam Examination chaperoned by Dashawn Khalil research casting assistant General Appearance: appears stated age, cooperative, and no distress, Gastrointestinal Exam: soft, non-tender; bowel sounds normal; no masses, no organomegaly, Pelvic Exam: External genitalia: normal general appearance Urinary system: urethral meatus normal and bladder not palpable Vaginal: normal mucosa without prolapse or lesions, discharge, brown/old blood, and presence of blood Cervix: normal appearance and no CMT Uterus: normal single, nontender and anteverted 15-16wk, nontender Adnexa: normal bimanual exam Pelvic muscle (obturator internus & levator ani) assessment Right OI: no tenderness Left OI: no tenderness Right LA: no tenderness Left LA: no tenderness Exam limited by body habitus Musculoskeletal Exam: Normal. Skin: normal Psychiatric Exam: Normal. and Alert and oriented, appropriate affect. Wet Prep pH of vagina: 4.5 Microscopic wet-mount exam shows no pathogens and positive WBC's Scant SERENE: negative Wiff: negative Udip: Neg for acute UTI Assessment/Plan 1. Pelvic and perineal pain 2. Intramural leiomyoma of uterus 3. Research study patient Patient counseled extensively regarding the history and physical exam findings not being clearly consistent with any obvious etiology for her pain. We did discuss and reassured her however that therewas no serious findings. We discussed that her exam is notable for an enlarged fibroid uterus, which is known, no bladder tenderness or obvious pelvic floor myofascial dysfunction. We reviewed that she can continue to take the ibuprofen at 800 mg as needed for the severe sharp pain, but that the cramping pelvic pressure pain that she is having is overall less than with her periods off of study medication. She was reassured by all of this. We discussed that she could continue to be on the study drug for contraception if she wishes, but that she can also choose to discontinue if she wants to determine if it is somehow related to the study drug but that this is unlikely. If she wishes to discontinue with the study medication she will need to start a new contraceptive method as soon as possible as she will be at risk for and she expressed understanding and declined to discontinue the study drug and wishes to continue with this as her contraceptive method. In the meantime we willcontinue our workup regarding the possible etiologies for her sharp pelvic pain including STD screening which will be done through the research study, a urinalysis and urine culture that will be donethrough this study despite her having a negative urine dipstick. Finally we discussed that her wet prep was negative for evidence of bacterial or yeast vaginitis. All questions were answered and she was sufficiently reassured. - [facility] relugolix/E2/SHIVA (/[id number]) 40 mg/1 mg/0.5 mg tablet; Take 1 tablet by mouth daily Dispense: 365 tablet; Refill: 0 4. Urinary frequency 5. Vaginal odor We will follow up on the urine culture despite there being a negative urinalysis dipstick in the office. We discussed that her odor and increased frequency and pain with urination could be evidence of a bacterial urinary tract infection that would not be evaluated without a urine culture. Given that this is not part of the research trial we will send a culture to laboratory through her insurance.All questions were answered. - Urine culture Urine, clean voided; Future - Urinalysis reflex to microscopic; Future Percy Hutchinson MD Please note that portions of this note were created using MModal and may have some process mechanic variance. documented in this encounter Miscellaneous Notes * Addendum Note - Hernan Wayne CMA - 11/16/2022 2:30 PM CDTAddended by: HERNAN WAYNE on: 11/16/2022 04:02 PM Modules accepted: Orders * Addendum Note - Hernan Wayne CMA - 11/16/2022 2:30 PM CDTAddended by: HERNAN WAYNE on: 11/16/2022 04:03 PM Modules accepted: Orders documented in this encounter Plan of Treatment Not on file documented as of this encounter Procedures Procedure Name Priority Date/Time Associated Diagnosis Comments POCT URINALYSIS DIPSTICK Routine 11/16/2022 3:50 PM CDT Urinary frequency documented in this encounter Results * Urinalysis reflex to microscopic (11/16/2022 4:03 PM CDT) Color, ur Straw Yellow [facility] Clarity, ur Clear Clear [facility] Specific gravity, ur 1.019 1.003 - 1.030 [facility] pH, urine 6.5 [facility] Protein, ur ql Negative Negative [facility] Glucose, ur ql Negative Negative [facility] Ketones, ur Negative Negative [facility] Bilirubin, ur Negative Negative [facility] Blood, ur Negative Negative [facility] Urobilinogen, ur <2.0 <2.0 mg/dL [facility] Nitrite, ur Negative Negative [facility] Leukocyte esterase, ur Negative Negative [facility] UA reflex comment Reflex conditions for microscopic UA not met. [facility] Urine 11/16/2022 4:03 PM CDT 11/16/2022 8:06 PM CDT Narrative CERNER BJ - 11/16/2022 8:37 PM CDT ?? Urine pH is affected by diet, medications, systemic acid-base disturbances, and renal tubular function. ??pH may affect urinary stone formation. ??For example, urine pH below 6.0 may help reduce the tendency for calcium phosphate stones and pH greater than 6.0 may reduce the tendency for uric acid stone formation. Source: [facility] GFS IT. Last revised 04-01-2017 Percy Hutchinson MD LAB URINE ORDERABLES Final Result ELIJAH HIGUERA [facility] Department [place] [address] * (ABNORMAL) POCT urinalysis dipstick (11/16/2022 3:50 PM CDT) Color, Urine, POC Light Yellow Clarity, ur, POC Clear Clear Glucose, ur, POC Negative Negative MG/DL Bilirubin, ur, POC Negative Negative, Small, Moderate, Large Ketones, ur, POC Negative Negative Specific [place], POC 1.015 1.003 - 1.030 Blood, ur, POC Negative Negative pH, ur, POC 7.0 5.0 - 8.0 Protein, ur, POC Negative Negative Urobilinogen, urine, POC 0.2 0.2 - 1.0 mg/dL Nitrite, ur, POC Negative Negative Leukocytes, ur, POC Negative Negative Lot Number [id number] Urine 11/16/2022 3:50 PM CDT Percy Hutchinson MD POINT OF CARE TEST ORDERAB LES Final Result documented in this encounter Visit Diagnoses Diagnosis Research study patient- Primary Pelvic and perineal pain Intramural leiomyoma of uterus Urinary frequency Vaginal odor Unspecified symptom associated with female genital organs Urinary frequency documented in this encounter Discontinued Medications Medication Sig Discontinue Reason Start Date End Da te [facility] relugolix/E2/SHIVA (/[id number] ) 40 mg/1 mg/0.5 mg tablet Take 1 tablet by mouth daily Reorder 05/19/2022 11/16/2022 documented as of this encounter Care Teams Magnaflux Operator Relationship Specialty Start Date End Date Supriya Hay PA [address] [facility] [address] [place] [address] PCP - General Internal Medicine 02/21/20 Helio Carrera MD [address] [place] [address] Referring Physician Obstetrics and Gynecology 09/03/21 documented as of this encounter
--- OUTSIDE RECORDS SUMMARY | 2024-04-01 05:52 | XMS_ITS | Encounter Summary ---
Author Organization [facility] Address [address] [place] [address] Phone Care Team Providers Care Financial Economist Name Role Phone Supriya Hay Primary Care Provider +1- [phone] Helio Carrera MD Unavailable +[phone] Reason for Visit * Reason Comments Follow-up Iud removal Encounter Details Date Type Department Care Team (Latest Contact Info) Description 05/19/2022 11:30 AM SPLITTER OPERATOR Office Visit [facility] Obstetrics and Gynecology [address] [facility] 7th Floor [address] [place] [address] Precy Hutchinson MD [address] [facility] [phone] [place] [address] Intramural leiomyoma of uterus (Primary Dx); Intrauterine contraceptive device threads lost, subsequent encounter; General counseling and advice on contraceptive management Social History Tobacco Use Types Packs/Day Years [...] PM CDT Legal Sex Female 12:02 AM SPLITTER OPERATOR Gender Identity Female 11/16/2022 3:54 PM CDT Sexual Orientation Straight 11/16/2022 3: 54 PM CDT documented as of this encounter Last Filed Vital Signs Vital Sign Reading Time Taken Comments Blood Pressure 126/78 05/19/2022 11:30 AM SPLITTER OPERATOR Pulse - - Temperature - - Respiratory Rate - - Oxygen Saturation - - Inhaled Oxygen Concentration - - Weight 83.2 kg (183 lb 6.4 oz) 05/19/2022 11:30 AM SPLITTER OPERATOR Height 157.5 cm (5' 2.01 ) 05/19/2022 11:[address] Body Mass Index 33.54 05/19/2022 11:30 AM SPLITTER OPERATOR documented in this encounter Patient Instructions * Patient Instructions* Percy Hutchinson MD - 05/19/2022 11:30 AM SPLITTER OPERATOR [facility] Family Planning Post-op Instructions/Expectations After your IUD removal procedure you may have irregular bleeding. Most patients do well with just ibuprofen to manage their pain/cramping. You should rest the day and gradually return to regular activity. Post-procedure restrictions: Nothing in the vagina for 1 week (no douching, tampons, intercourse) Pain Medication: You should take Ibuprofen 600 mg every 6 hours or 800 mg every 8 hr for cramping/pain. Maximum dose: 2400 mg/24 hr You may take Tylenol (acetaminophen) 975-1000 mg every 8 hr in combination with the ibuprofen. Maximum dose: 3000 mg/24 hr Please CALL us immediately if you experience any of the following: Fever (Temperature 100.4F or higher) Pain that is not relieved with the medications provided Heavy vaginal bleeding (passing clots, soaking a maxi pad in less than 1 hour) Foul smelling vaginal discharge Severe vomiting, where you are unable to keep down liquids or medications If you notice any of the above, please call [phone] to speak to the nurse during normal business hours. Please call our exchange at [phone] if it is after hours. The answering service will call the physician on-call who will then call you back. TTER OPERATOR documented in this encounter Ordered Prescriptions Prescription Sig Dispense Quantity Refills Last Filled Start Date End Date [facility] relugolix/E2/SHIVA (/MVT-6 ) 40 mg/1 mg/0.5 mg tablet Take 1 tablet by mouth daily 365 tablet 05/19/2022 11/16/2022 ibuprofen (ADVIL,MOTRIN) 800 mg tablet Take 1 tablet (800 mg total) by mouth every 8 (eight) hours for 3 days With onset of menses and then q8hrs as needed for pain. Do not exceed 7 days in a row. 30 tablet 3 05/19/2022 05/22/2022 documented in this encounter Progress Notes * Percy Hutchinson MD - 05/19/2022 11:30 AM CST Patient ID: Aziza Lockhart is a 41 y.o. female Subjective Chief Complaint: Follow-up (Iud removal) HPI: 41 y.o. with PMH significant for Fibroid uterus who presents for removal of LNG Mirena IUD that has been in since 2018. She not used other BCM. She has been w/ BF for 20+ yrs. She denies painw/ sex. She is enrolling in Myovant trial of Myfembree for BCM in patients with fibroids. She had initial screening visit w/ Dr. Fernando Griffin on 04/13/22 notable for 2.39 x 2.01cm anterior intramural myoma and IUD at fundus, but missing strings. Histories Medical Past Medical History: Diagnosis Date Anemia Lumbar pain with radiation down left leg 05/09/2019 Surgical Past Surgical History: Procedure Laterality Date BLADDER SURGERY 2019 CHOLECYSTECTOMY 2017 HERNIA MESH REMOVAL 2017 HERNIA REPAIR 2017 TONSILLECTOMY 2005 Ob History OB History No obstetric history on file. 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 (Menstrual status: IUD). Social History Substance and Sexual Activity Sexual Activity Not on file Last Pap test: Pap History Group: Menstrual history group Family Family History Problem Relation Age of Onset Diabetes Mother Thyroid disease Mother Hyperlipidemia Mother Arthritis Mother Hypertension Father Heart disease Father Asthma Son Glaucoma Maternal Grandmother Heart disease Maternal Grandmother Diabetes Maternal Grandmother Cataracts Maternal Grandmother Prostate cancer Maternal Grandfather Arthritis Paternal Grandmother Glaucoma Paternal Grandmother Prostate cancer Paternal Grandfather Social Social History Tobacco Use Smoking status: Never Smokeless tobacco: Never Substance and Sexual Activity Drug use: Never Sexual activity: None Alcohol Use: Not At Risk Frequency of Alcohol Consumption: Never Average Number of Drinks: Patient does not drink Frequency of Binge Drinking: Never Meds Current Outpatient Medications: hydroCHLOROthiazide (HYDRODIURIL) 25 mg tablet, TAKE 1 TABLET(25 MG) BY MOUTH DAILY, Disp: 30 tablet, Rfl: 0 ibuprofen (ADVIL,MOTRIN) 800 mg tablet, Take 1 tablet (800 mg total) by mouth every 8 (eight) hoursfor 3 days With onset of menses and then q8hrs as needed for pain. Do not exceed 7 days in a row., Disp: 30 tablet, Rfl: 3 [facility] relugolix/E2/SHIVA (/T-601-050) 40 mg/1 mg/0.5 mg tablet, Take 1 tablet by mouth daily, Disp: 365 tablet, Rfl: 0 levonorgestreL (MIRENA) IUD, 1 each by intrauterine route once, Disp: , Rfl: Allergies Clindamycin and Sulfa (sulfonamide antibiotics) Objective BP 126/78 Ht 157.5 cm (5' 2.01 ) Wt 83.2 kg (183 lb 6.4 oz) BMI 33.54 kg/m?? Physical Exam Examination chaperoned by TOBIN Elizalde General Appearance: appears stated age, cooperative, and no distress, Gastrointestinal Exam: soft, non-tender; bowel sounds normal; no masses, no organomegaly, Pelvic Exam: External genitalia: normal general appearance Urinary system: urethral meatus normal and bladder not palpable Vaginal: normal mucosa without prolapse or lesions Cervix: normal appearance and IUD strings not visible Uterus: normal single, nontender, anteverted, and enlarged 8-10 week size Adnexa: normal bimanual exam Exam limited by body habitus Musculoskeletal Exam: Normal. Skin: normal Psychiatric Exam: Normal. and Alert and oriented, appropriate affect. IUD REMOVAL PROCEDURE Patient was consented prior to the procedure after all risks, benefits, and alternatives were discussed. Premedication: 800 mg ibuprofen p.o. The strings were not visible After prepping the cervix with betadine 20 mL 1% lidocaine paracervical block was administered in the usual fashion. A single-tooth tenaculum was used to grasp the anterior lip of the cervix. Continuous ultrasound guidance was used as sterile alligator forcep was gently inserted into the cervical canal, but could not traverse the internal os. As such the uterus and cervix were dilated in the usual fashion 19 Wolof using Hand dilator with minimal resistance and continuous ultrasound guidance. At this time the alligator forceps was advanced into uterine cavity under sterile conditions with ultrasound guidance and used to grasp and remove the IUD. UItrasound guidance was used during the procedure Yes . See media tab for images Complications: None New contraception desired: Contraceptive type: MyFebmree experimental contraceptive Assessment/Plan 1. Intrauterine contraceptive device threads lost, subsequent encounter 2. Intramural leiomyoma of uterus 3. General counseling and advice on contraceptive management Patient tolerated ultrasound guided IUD removal with local anesthesia well. We reviewed postprocedure instructions, expectations and limitations. Prescription for ibuprofen 800 mg q.8 hours times 48-72 hours was provided for postprocedure pain relief. She was counseled regarding other contraceptivemethods and previously had decided she wants to pursue the investigational contraceptive affect of Myfembree (Relugolix, estradiol and norethindrone). She will now be allowed to start investigationalstudy drug as the IUD is removed. Percy Hutchinson MD Please note that portions of this note were created using MModal and may have some bowling pin setters installer variance. MDM SUMMARY Based on my medical decision making, I considered/addressed the following medical problems: 1. Intramural leiomyoma of uterus 2. Intrauterine contraceptive device threads lost, subsequent encounter 3. General counseling and advice on contraceptive management These diagnoses are consistent with 3 stable chronic illnesses. A total of 6 elements of the following data was reviewed and analyzed: prior external notes and results of prior tests including labs, imaging studies, and physiologic data I ordered tests as noted for a total of 1 unique test(s). I performed my own review and interpretation of the following tests ultrasound imaging. It was not necessary to discuss the test interpretation and management of this patient with another qualified health special needs child caregiver In my opinion, the risk of complications/morbidity from additional diagnostic testing and/or treatment recommended is moderate as a result of need for drug management, decision for minor surgery, andthe patient's social determinants of health including AA Race/racism TTER OPERATOR documented in this encounter Plan of Treatment Not on file documented as of this encounter Visit Diagnoses Diagnosis Intramural leiomyoma of uterus- Primary Intrauterine contraceptive device threads lost, subsequent encounter General counseling and advice on contraceptive management Other general counseling and advice for contraceptive management documented in this encounter Care Teams Financial Economist Relationship Specialty Start Date End Date Supriya Hay PA [address] [place] [address] PCP - General Internal Medicine 02/21/20 Helio Carrera MD [address] [place] [address] Referring Physician Obstetrics and Gynecology 09/03/21 documented as of this encounter
--- OUTSIDE RECORDS SUMMARY | 2024-04-01 05:52 | XMS_ITS | Encounter Summary ---
Author Organization [facility] Healthcare Address [address] [place] [address] Care Team Providers Care Steward/Stewardess Smoke Room Name Role Phone Supriya Hay Primary Care Provider +1- [phone] Helio Carrera MD Unavailable +1- [phone] Reason for Referral * Diagnostic Imaging (Routine) - Closed Specialty Diagnoses / Procedures Referred By Contac t Referred To Contact Diagnoses Screening mammogram, encounter for Procedures Screening Mammogram Bilateral W Sree Screening Mammogram, Self [facility] Referral ID Status Reason Start Date Expiration Date Visits Re quested Visits Authorized [id number] Closed 06/01/2023 06/30/2024 1 1 * Diagnostic Imaging (Routine) - Closed Specialty Diagnoses / Procedures Referred By Contac t Referred To Contact Diagnoses Screening mammogram, encounter for Procedures Screening Mammogram Bilateral W Sree Screening Mammogram, Self [facility] Referral ID Status Reason Start Date Expiration Date Visits Re quested Visits Authorized [id number] Closed 06/01/2023 06/30/2024 1 1 Reason for Visit * Diagnostic Imaging (Routine) - Closed Specialty Diagnoses / Procedures Referred By Contac t Referred To Contact Diagnoses Screening mammogram, encounter for Procedures Screening Mammogram Bilateral W Sree Screening Mammogram, Self [facility] Referral ID Status Reason Start Date Expiration Date Visits Re quested Visits Authorized [id number] Closed 06/01/2023 06/30/2024 1 1 Encounter Details Date Type Department Care Team (Latest Contact Info) Description 06/01/2023 2:30 PM CDT - 06/01/2023 11:59 PM CDT Hospital Encounter [facility] Breast Imaging [facility] ([facility]) [address] [place] [id number] Screening mammogram, encounter for Discharge Disposition: Discharge [...] PM CDT 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 Gender Identity Female 11/16/2022 3:54 PM CDT Sexual Orientation Straight 11/16/2022 3: 54 PM CDT documented as of this encounter Medications at Time of Discharge dicyclomine (BENTYL) 20 mg tablet Take 1 tablet (20 mg total) by mouth every 6 (six) hours ibuprofen (ADVIL,MOTRIN) 800 mg tablet Take 1 tablet (800 mg total) by mouth 3 (three) times a day as needed for pain (cramping and bleeding) 90 tablet 1 07/14/2022 norethindrone-e.estr adioL-iron (LOESTIN 24 FE) 1 mg-20 mcg (24)/75 mg (4) per tablet Take active pill daily (skipping placebos) till 2 days in a row of spotting (requiring protection), then take 4 day break and restart. 84 tablet 3 05/18/2023 4 ondansetron ODT (ZOFRAN-ODT) 4 mg disintegrating tablet DISSOLVE 1 TABLET(4 MG) ON THE TONGUE EVERY 8 HOURS NEEDED FOR NAUSEA OR VOMITING 20 tablet 04/26/2023 4 relugolix-estradiol- norethindr (Myfembree) 40-1-0.5 mg tabletIndications:he bambi menstrual bleeding assoc. with uterine leiomyoma Take 1 tablet/capsule by mouth daily 90 tablet 2 05/31/2023 4 documented as of this encounter Discharge Disposition Disposition Code Departure Means Destination Discharge to home or self care documented in this encounter Miscellaneous Notes * Result Encounter Note - Supriya Hay PA - 06/01/2023 11:59 PM CDT Let pt know her mammogram is normal and will plan to repeat in 1 year. documented in this encounter Plan of Treatment Not on file documented as of this encounter Procedures Procedure Name Priority Date/Time Associated Diagnosis Comments SCREENING MAMMOGRAM BILATERAL W SREE Schedule Routine, Read Routine (OP Routine) 06/01/2023 2:45 PM CDT Screening mammogram, encounter for documented [...] for documented in this encounter Care Teams Steward/Stewardess Smoke Room Relationship Specialty Start Date End Date Supriya Hay PA [address] [place] [address] PCP - General Internal Medicine 02/21/20 Helio Carrera MD [address] [place] [address] Referring Physician Obstetrics and Gynecology 09/03/21 documented as of this encounter
--- OUTSIDE RECORDS SUMMARY | 2024-04-01 05:52 | XMS_ITS | Encounter Summary ---
Author Organization [facility] Address [address] [place] [address] Phone Care Team Providers Care Delicatessen Store Manager Name Role Phone Supriya Hay Primary Care Provider [phone]- [phone] Helio Carrera MD Unavailable [phone] Encounter Details Date Type Department Care Team (Late st Contact Info) Description 11/13/2022 Telephone [facility] Obstetrics and Gynecology [address] [facility] Outpatient Health 7th Floor [address] [place] [address] Bernice Cates Social History Tobacco Use Types Packs/Day Years [...] PM CDT 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 documented in this encounter Plan of Treatment Not on file documented as of this encounter Visit Diagnoses Not on filedocumented in this encounter Care Teams Delicatessen Store Manager Relationship Specialty Start Date End Date Supriya Hay PA [address] [facility] [address] [place], [place] [phone] PCP - General Internal Medicine 02/21/20 Helio Carrera MD [address] [place] [address] Referring Physician Obstetrics and Gynecology 09/03/21 documented as of this encounter
--- OUTSIDE RECORDS SUMMARY | 2024-04-01 05:52 | XMS_ITS | Encounter Summary ---
Author Organization [facility] Address [address] [place] [address] Phone Care Team Providers Care Unit Secy Name Role Phone Supriya Hay Primary Care Provider +1- [phone] Helio Carrera MD Unavailable [phone] Encounter Details Date Type Department Care Team (Latest Contact Info) Description 12/08/2022 3:45 PM CDT Procedure visit [facility] Obstetrics and Gynecology [facility] Health 7th [place] [address] Research subject (Primary Dx) Social History Tobacco Use Types [...] staff should administer the PHQ-9) 1 01/13/2023 Comments No Sex and Gender Information Value Date Recorded Sex Assigned at Female 11/16/2022 3:54 PM CDT 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 Gender Identity Female 11/16/2022 3:54 PM CDT Sexual Orientation Straight 11/16/2022 3: 54 PM CDT documented as of this encounter Progress Notes * Alejandra Paris RMA - 12/08/2022 3:45 PM CDT Patient presented for research lab draw Drawn from [facility] Patient tolerated well TEACHER documented in this encounter Plan of Treatment Not on file documented as of this encounter Visit Diagnoses Diagnosis Research subject- Primary documented in this encounter Care Teams Unit Secy Relationship Specialty Start Date End Date Supriya Hay PA [address] [facility] [address] [place], [place] [phone] PCP - General Internal Medicine 02/21/20 Helio Carrera MD [address] [facility] [address] [place] [address] Referring Physician Obstetrics and Gynecology 09/03/21 documented as of this encounter
--- OUTSIDE RECORDS SUMMARY | 2024-04-01 05:52 | XMS_ITS | Encounter Summary ---
Author Organization [facility] Address [address] [place] [address] Phone Care Team Providers Care Wood Engraver Name Role Phone Supriya Hay Primary Care Provider +1- [phone] Helio Carrera MD Unavailable Encounter Details Date Type Department Care Team (Late st Contact Info) Description 07/10/2022 Telephone [facility] Obstetrics and Gynecology [address] [facility] Outpatient Health 7th Floor [address] [place] [address] Percy Hutchinson MD [address] [facility] [phone] [place] [address] Social History Tobacco Use Types [...] PM CDT 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 sent at 07/10/2022 8:15 AM CDT ----- Regarding: MVT [id number] Here is the patient! I put my original e-mail below for convenience. Thank you! Our MVT patient called and informed me that she has been experiencing chest pains (burning sensation) consistently since yesterday (said she's taken Howard which had some improvements and then it wears off). I advised her to seek external care/go to the ER if she thought necessary sense we will not be able to see her until next week. She also said she's been having an extended period with heavy tovery heavy bleeding (Bleeding started light on 06/29/22 then turned heavy to very heavy bleeding 06/30 through now. Yesterday while running some errands she felt a 'gush' and had soaked through a panty-liner, pad, underwear and pants. She's experiencing clotting and is changing her pad 3-4 times a day. Is there any guidance we can provide her until she is able to come in on Wednesday? Anabell we will have to double book her on C3 for 1PM on 07/14 as a heads up! documented in this encounter Plan of Treatment Not on file documented as of this encounter Visit Diagnoses Not on filedocumented in this encounter Care Teams Wood Engraver Relationship Specialty Start Date End Date Supriya Hay PA [address] [facility] [address] [place] [address] PCP - General Internal Medicine 02/21/20 Helio Carrera MD [address] [place] [address] Referring Physician Obstetrics and Gynecology 09/03/21 documented as of this encounter
--- OUTSIDE RECORDS SUMMARY | 2024-04-01 05:52 | XMS_ITS | Encounter Summary ---
Author Organization [facility] Address [address] [place] [address] Phone Care Team Providers Care Yard Motor Operator Name Role Phone Supriya Hay Primary Care Provider [phone]- [phone] Helio Carrera MD Unavailable [phone]- [phone] Reason for Referral * Diagnostic Imaging (Routine) - Closed Specialty Diagnoses / Procedures Referred By Melissa swanson Referred To Contact Diagnoses Menorrhagia with irregular cycle Procedures US Pelvis Complete Anabell Palomares NP [address] [address] Phone: tel: fax: [facility] (All Locations) Referral ID Status Reason Start Date Expiration Date Visits Re quested Visits Authorized [id number] Closed 07/16/2022 08/15/2023 1 1 Encounter Details Date Type Department Care Team (Late st Contact Info) Description 07/16/2022 Orders Only [facility] Obstetrics and Gynecology [facility] Outpatient Health 7th Floor [address] [place] [address] Anabell Palomares NP [address] [address] Menorrhagia with irregular cycle (Primary Dx) Social History Tobacco Use Types [...] PM CDT 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 No free fluidin the pelvis. us Anabell Palomares GAMING DIRECTOR IMG US PROCEDURES Final Result documented in this encounter Visit Diagnoses Diagnosis Menorrhagia with irregular cycle- Primary Menorrhagia with irregular cycle documented in this encounter Discontinued Medications Medication Sig Discontinue Reason Start Date End Da te levonorgestreL (MIRENA) IUD 1 each by intrauterine route once No longer clinically indicated 07/16/2022 documented as of this encounter Care Teams Yard Motor Operator Relationship Specialty Start Date End Date Supriya Hay PA [address] [facility] [address] [place] [address] PCP - General Internal Medicine 02/21/20 Helio Carrera MD [address] [place] [address] Referring Physician Obstetrics and Gynecology 09/03/21 documented as of this encounter
--- OUTSIDE RECORDS SUMMARY | 2024-04-01 05:52 | XMS_ITS | Encounter Summary ---
Author Organization [facility] Address [address] [place] [address] Phone Care Team Providers Care Marina Sales And Service Supervisor Name Role Phone Supriya Hay Primary Care Provider +1- [phone] Helio Carrera MD Unavailable Encounter Details Date Type Department Care Team (Late st Contact Info) Description 07/14/2022 1:00 PM CDT Office Visit [facility] Obstetrics and Gynecology [address] [facility] 7th Floor [address] [place] [address] Anabell Palomares NP [address] [facility] [address] [place], [place] [id number] Research exam (Primary Dx) Social History Tobacco Use Types [...] PM CDT 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 Gender Identity Female 11/16/2022 3:54 PM CDT Sexual Orientation Straight 11/16/2022 3: 54 PM CDT documented as of this encounter Ordered Prescriptions Prescription Sig Dispense Quantity Refills Last Filled Start Date End Date ibuprofen (ADVIL,MOTRIN) 800 mg tablet Take 1 tablet (800 mg total) by mouth 3 (three) times a day as needed for pain (cramping and bleeding) 90 tablet 1 07/14/2022 07/14/2023 documented in this encounter Progress Notes * Mady Darnell RN - 07/14/2022 1:00 PM CDT Closing research encounter documented in this encounter Miscellaneous Notes * Research Note - Mary Shi BS - 07/14/2022 1:00 PM CDT Closing research encounter documented in this encounter Plan of Treatment Not on file documented as of this encounter Visit Diagnoses Diagnosis Research exam- Primary documented in this encounter Care Teams Marina Sales And Service Supervisor Relationship Specialty Start Date End Date Supriya Hay PA [address] [facility] [address] [place] [address] PCP - General Internal Medicine 02/21/20 Helio Carrera MD [address] [place] [address] Referring Physician Obstetrics and Gynecology 09/03/21 documented as of this encounter
--- OUTSIDE RECORDS SUMMARY | 2024-04-01 05:53 | XMS_ITS | Encounter Summary ---
Author Organization [facility] Healthcare Address [address] [place] [address] Care Team Providers Care Flexo Press Operator Name Role Phone Supriya Hay Primary Care Provider +1- [phone] Helio Carrera MD Unavailable +1- [phone] Reason for Visit * Auth/Cert Specialty Diagnoses / Procedures Referred By Melissa swanson Referred To Contact Diagnoses Pancreatic lesion Pancreatic lesion [K86.9] Procedures AK EDG US EXAM SURGICAL ALTER STOM DUODENUM/JEJUNUM AK EGD INTRMURAL NEEDLE ASPIR/BIOP ALTERED ANATOMY ESOPHAGOGASTRODUODENOSCOPY ENDOSCOPIC ULTRASOUND SG/OA Referral ID Status Reason Start Date Expiration Date Visits Re quested Visits Authorized [id number] 1 1 Encounter Details Date Type Department Care Team (Latest Contact Info) Description 12/23/2021 7:41 AM CDT - 12/23/2021 12:09 PM CDT Hospital Encounter 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 Gender Identity Female 11/16/2022 3:54 PM CDT Sexual Orientation Straight 11/16/2022 3: 54 PM CDT documented as of this encounter Last Filed Vital Signs Vital Sign Reading Time Taken Comments Blood Pressure 109/81 12/23/2021 11:00 AM CDT Pulse 66 12/23/2021 11:00 AM CDT Temperature 36.2 ??C (97.2 ??F) 12/23/2021 10:40 AM C DT Respiratory Rate 16 12/23/2021 11:00 AM CDT Oxygen Saturation 99% 12/23/2021 11:00 AM CDT Inhaled Oxygen Concentration - - Weight 86.2 kg (190 lb) 12/23/2021 8:11 AM CDT Height 157.5 cm (5' 2 ) 12/23/2021 8:11 AM CDT Body Mass Index 34.75 12/23/2021 8:11 AM CDT documented in this encounter Discharge Instructions * Discharge Instructions* Rolo Salazar MD - 12/23/2021 10:46 AM CDT Please refer to your procedure report and instructions for specific guidance on management of your diet and medications. Specifically, if you are on a blood thinning medication (like coumadin, Plavix, Eliquis, Xarelto, etc) your endoscopy report will include instructions on what to do with these medications in the days after the endoscopy. If you have any questions about your medication regimen, please discuss them with your prescribing physician. documented in this encounter Medications at Time of Discharge hydroCHLOROthiaz lizzy (HYDRODIURIL) 25 mg tabletIndication s:Edema, lower extremity Take 1 tablet (25 mg total) by mouth daily 30 tablet 12/03/2021 2 levonorgestreL (MIRENA) IUD 1 each by intrauterine route once 3 documented as of this encounter Discharge Disposition Disposition Code Departure Means Destination Discharge to home or self care documented in this encounter H&P Notes * Rolo Salazar MD - 12/23/2021 10:25 AM CDT Pre Endoscopy History and Physical Aziza Lockhart is a 41 y.o. female who is here for Procedure(s): ESOPHAGOGASTRODUODENOSCOPY ENDOSCOPIC ULTRASOUND SG/OA The indication(s) for the procedure(s): CTA chest for LE edema and r/o PE with incidental pancreatic lesion> MRI/MRCP with confirmation that lesion is a small lipoma. Here for EUS evaluation. Past Medical History: Diagnosis Date Anemia Lumbar pain with radiation down left leg 05/09/2019 Past Surgical History: Procedure Laterality Date BLADDER SURGERY 2019 CHOLECYSTECTOMY 2017 HERNIA MESH REMOVAL 2017 HERNIA REPAIR 2017 TONSILLECTOMY 2006 Social History Tobacco Use Smoking status: Never Smokeless tobacco: Never Substance and Sexual Activity Drug use: Never Sexual activity: None Alcohol Use: Not At Risk Frequency of Alcohol Consumption: Never Average Number of Drinks: Patient does not drink Frequency of Binge Drinking: Never Family History Problem Relation Age of Onset Diabetes Mother Thyroid disease Mother Hyperlipidemia Mother Arthritis Mother Hypertension Father Heart disease Father Asthma Son Glaucoma Maternal Grandmother Heart disease Maternal Grandmother Diabetes Maternal Grandmother Cataracts Maternal Grandmother Prostate cancer Maternal Grandfather Arthritis Paternal Grandmother Glaucoma Paternal Grandmother Prostate cancer Paternal Grandfather Allergies Allergen Reactions Clindamycin Shortness of breath Sulfa (Sulfonamide Antibiotics) Itching Prior to Admission medications Medication Sig Start Date End Date Taking? Authorizing Provider hydroCHLOROthiazide (HYDRODIURIL) 25 mg tablet Take 1 tablet (25 mg total) by mouth daily 12/03/21 Yes Supriya Hay, PA levonorgestreL (MIRENA) IUD 1 each by intrauterine route once Provider, MD Sonal Review of Systems A pertinent, focused review of systems was completed and negative, except as noted above. OBJECTIVE: Vitals: Vitals: 12/23/21 0811 BP: 116/82 Pulse: 71 Resp: 11 Temp: 36.4 ??C (97.5 ??F) TempSrc: Temporal SpO2: 99% Weight: 86.2 kg (190 lb) Height: 157.5 cm (5' 2 ) Physical Exam: Airway: No significant abnormality. Cardiac: No significant abnormality. Pulmonary: No significant abnormality. Neurological: No significant abnormality. Gastrointestinal: No significant abnormality. ASA Score: per Anesthesia Sedation/Anesthesia Plan: per Anesthesia The risks and complications of the procedure have been explained to the patient. Informed consent was signed. Impression and plan: Will proceed with the planned procedure for the reasons stated above. documented in this encounter Procedure Notes * Rolo Salazar MD - 12/23/2021 10:01 AM CDTAssociated Order(s): EUS GI [facility]OSCOPY [facility] Patient Name: Aziza Lockhart Procedure Date: 12/23/2021 10:01 AM Date of : 1980 Admit Type: Outpatient Age: 41 Gender: Female Attending MD: Rolo Salazar M.D. Room: [facility] ENDOSCOPY ROOM 2 Note Status: Finalized Procedure: Upper EUS Indications: Abnormal chest CT; h/o CT Chest performed for lower extremity edema with incidental lesion in tail of pancreas consistent with possible lipoma. MRI/MRCP today with confirmation of a small, well circumscribed lipoma centered in the pancreas. Referring MD: Supriya Hay PA-C Providers: Rolo Salazar M.D. Medicines: Monitored Anesthesia Care Complications: No immediate complications. Estimated blood loss: None. Estimated Blood Loss: Estimated blood loss: none. Procedure: Pre-Anesthesia Assessment: - The risks and benefits of the procedure and the sedation options and risks were discussed with the patient. All questions were answered and informed consent was obtained. - Immediately prior to administration of medications, the patient was re-assessed for adequacy to receive sedatives. - The anesthesia plan was to use monitored anesthesia care (MAC). The risks, benefits and alternatives were discussed and informed consent was obtained.The Olympus curved linear array therapeutic endosonoscope [id number] was introduced through the mouth, and advanced to the second part of duodenum The GIF [id number] endoscope was introduced through the mouth, and advanced to the second part of duodenum Findings: ENDOSCOPIC FINDING: : The examined esophagus was normal. The entire examined stomach was normal. The examined duodenum was normal. ENDOSONOGRAPHIC FINDING: : The esophagus, stomach and duodenum were visualized endosonographically. The pancreas was noted with non-specific parenchymal changes consisting of hyperechoic foci and echogenicity likely due to fat deposition. The pancreatic duct was non-dilated at 1mm. In the tail of the pancreas, corrsponding to description on MRI and CT scans, there was a 10mm, well circumscribed, round, hypoechoic lesion. There was surrounding vasculature from the splenic hilum making potential sampling high risk. Given unequivocal description of the lesion as a benign lipoma on MRI today, further sampling was therefore not pursued. There was no sign of significant endosonographic abnormality in the common bile duct. The maximum diameter of the duct was 3 mm. The region of the celiac plexus and celiac ganglia was visualized and showed no sign of significant endosonographic abnormality. The vascular anatomy of the region was normal. Impression: EGD: - Normal esophagus. - Normal stomach. [...] to primary care physician as previously scheduled. - In the unusual situation that you develop abdominal pain, bleeding or other significant problems in the days following this procedure please call my office at [phone] to speak to my nurses. After hours and evenings please call [phone] and speak to the GI fellow semi conductor assembler. Please tell them that Dr. Salazar did your procedure and that your were instructed to have the fellow call me or the physician covering for me to discuss the management of your condition. If you have an urgent problem, please go to the nearest emergency room and have the ER doctor call my office during the day or the GI Fellow after hours and weekends to arrange admission or transfer to our facility. Attending Participation: I personally performed the entire procedure. Electronically Signed By: Rolo Salazar M.D. Rolo Salazar M.D. 12/23/2021 10:46:36 AM . Number of Addenda: 0 Note Initiated On: 12/23/2021 10:01 AM Recognized by the [employer] for promoting quality in endoscopy documented in this encounter Plan of Treatment Pending Results Name Type Priority Associated Diagnoses Date /Time US Endoscopy Endo Imaging Procedure IP Routine Pancreatic lesion 12/23/2021 10:39 AM CDT documented as of this encounter Procedures Procedure Name Priority Date/Time Associated Diagnosis Comments US ENDOSCOPIC IP Routine 12/23/2021 10:39 AM CDT Pancreatic lesion EUS 12/23/2021 10:01 AM CDT POCT HCG, URINE Routine 12/23/2021 8:12 AM CDT documented in this encounter Results * EUS (12/23/2021 10:01 AM CDT) Anatomical Region Laterality Modality Other Narrative Procedure Note Rolo Salazar MD - 12/23/2021 10:01 AM CDT GI [facility] Patient Name: Aziza Lockhart Procedure Date: 12/23/2021 10:01 AM Date of : 1980 Admit Type: Outpatient Age: 41 Gender: Female Attending MD: Rolo Salazar M.D. Room: [facility] ENDOSCOPY ROOM 2 Note Status: Finalized Procedure: Upper EUS Indications: Abnormal chest CT; h/o CT Chest performed for lower extremity edema with incidental lesion in tail of pancreas consistent with possible lipoma. MRI/MRCP today with confirmation of a small, wellcircumscribed lipoma centered in the pancreas. Referring MD: Supriya Hay PA-C Providers: Rolo Salazar M.D. Medicines: Monitored Anesthesia Care Complications: No immediate complications. Estimated blood loss:None. Estimated Blood Loss: Estimated blood loss: none. Procedure: Pre-Anesthesia Assessment: - The risks and benefits of the procedure and the sedation options and risks were discussed with the patient. All questions were answered and informed consent was obtained. - Immediately prior to administration ofmedications, the patient was re-assessed for adequacy to receive sedatives. - The anesthesia plan was to use monitoredanesthesia care (MAC). The risks, benefits and alternatives were discussed and informed consent was obtained.The Olympuscurved linear array therapeutic [id number] was introduced through the mouth, and advanced tothe second part of duodenum The GIF [id number] endoscope was introduced through the mouth, and advanced to the second part of duodenum Findings: ENDOSCOPIC FINDING: : The examined esophagus was normal. The entire examined stomach was normal. The examined duodenum was normal. ENDOSONOGRAPHIC FINDING: : The esophagus, stomach and duodenum were visualizedendosonographically. The pancreas was noted with non-specific parenchymal changesconsisting of hyperechoic foci and echogenicity likely due to fat deposition.The pancreatic duct was non-dilated at 1mm. In the tail of the pancreas, corrsponding to description on MRI and CT scans, there was a 10mm,well circumscribed, round, hypoechoic lesion. There was surrounding vasculature from the splenic hilum making potential sampling highrisk. Given unequivocal description of the lesion as a benign lipoma on MRI today, further sampling was therefore not pursued. There was no sign of significant endosonographic abnormality in the common bile duct. The maximum diameter of the duct was 3 mm. The region of the celiac plexus and celiac ganglia was visualized and showed no sign of significant endosonographic abnormality. Thevascular anatomy of the region was normal. Impression: EGD: - Normal esophagus. - Normal stomach. - Normal examined duodenum. EUS: - The pancreas was noted with non-specificparenchymal changes consisting of hyperechoic foci and echogenicity likely due to fat deposition. The pancreatic duct was non-dilated at 1mm. - In the tail of the pancreas, corresponding to description on MRI and CT scans, there was a 10mm, well circumscribed, round, hypoechoic lesion. There was surrounding vasculature from the splenic hilum making potential EUS guided sampling high risk.Given unequivocal description of the lesion as a benign lipoma on MRI today, further sampling was therefore not pursued. - There was no sign of significant pathology in the common bile duct. Recommendation: - Observe patient's clinical course followingtoday's EGD/EUS. - Followup with referring physician. - Resume home medications and diet. - Return to primary care physician as previously scheduled. - In the unusual situation that you developabdominal pain, bleeding or other significant problems in the days following this procedure please call my officeat [phone] to speak to my nurses. After hours and evenings please call [phone] andspeak to the GI fellow semi conductor assembler. Please tell them that Dr. Salazar did your procedure and that your wereinstructed to have the fellow call me or the physiciancovering for me to discuss the management of your condition.If you have an urgent problem, [facility] and have the ER doctor call titus during the day or the GI Fellow after hours and weekends to arrange admission or transfer to our facility. Attending Participation: I personally performed the entire procedure. Electronically Signed By: Rolo Salazar M.D. Rolo Salazar M.D. 12/23/2021 10:46:36 AM . Number of Addenda: 0 Note Initiated On: 12/23/2021 10:01 AM Recognized by the [employer] for promoting quality in endoscopy us Rolo Salazar MD ENDOSCOPY PROCEDURES Final Result * POCT hCG, urine (12/23/2021 8:12 AM CDT) HCG, ur, POC Negative Lot Number [id number] QC Backgroud Clear Acceptable QC Control Line Acceptable Urine 12/23/2021 8:12 AM CDT us Rolo Salazar MD POINT OF CARE TEST ORDERABL ES Final Result documented in this encounter Visit Diagnoses Diagnosis Pancreatic lesion documented in this encounter Administered Medications Inactive Administered Medications - up to 3 most recent administrations Medication Order MAR Action Action Date Dose Rate Site ondansetron (ZOFRAN) injection 4 mg 4 mg, intravenous, Administer over 2 Minutes, Every 6 hours PRN, nausea, vomiting, Starting on 12/23/21 at 0804, Pre-Procedure (GI) sodium chloride 0.9% flush 0.5-20 mL 0.5-20 mL, intra-catheter, As needed, line care, Starting on 12/23/21 at 0804, Pre-Procedure (GI), Flush volume based on line type and size. Flush before and after each use. , Indications: FlushingIndications:Flushing sodium chloride 0.9% infusion 30 mL/hr, intravenous, Continuous, Starting on 12/23/21 at 0845, Pre-Procedure (GI) New Bag 12/23/2021 10:14 AM CDT documented in this encounter Active and Recently Administered Medications Times are shown in CDT. Continuous Medication Order 12/21/2021 12/22/2021 12/23/2021 sodium chloride 0.9% infusion 30 mL/hr, intravenous, Continuous, Starting on 12/23/21 at 0845, Pre-Procedure (GI) 1014 (New Bag - Prov ider: Regan Malik CRNA)1057 (Stopped - Provider: Megan Park RN) PRN Medication Order 12/21/2021 12/22/2021 12/23/2021 ondansetron (ZOFRAN) injection 4 mg 4 mg, intravenous, Administer over 2 Minutes, Every 6 hours PRN, nausea, vomiting, Starting on 12/23/21 at 0804, Pre-Procedure (GI) sodium chloride 0.9% flush 0.5-20 mL 0.5-20 mL, intra-catheter, As needed, line care, Starting on 12/23/21 at 0804, Pre-Procedure (GI), Flush volume based on line type and size. Flush before and after each use. , Indications: Flushing documented in this encounter Orders Medications Ordered That Chintan ht Not Have Been Administered Count Last Ordered Date First Ordered Date ondansetron (ZOFRAN) injection 4 mg 1 12/23 sodium chloride 0.9% flush 0.5-20 mL 1 06/2021 sodium chloride 0.9% infusion 1 12/23/2021 Discharge Count Last Ordered Date First Orde red Date DISCHARGE PATIENT 1 12/23/2021 documented in this encounter Care Teams Flexo Press Operator Relationship Specialty Start Date End Date Supriya Hay PA [address] [place] [address] PCP - General Internal Medicine 02/21/20 Helio Carrera MD [address] [place] [address] Referring Physician Obstetrics and Gynecology 09/03/21 documented as of this encounter
--- OUTSIDE RECORDS SUMMARY | 2024-04-01 05:53 | XMS_ITS | Encounter Summary ---
Author Organization [facility] Address [address] [place] [address] Care Team Providers Care Natural Science Curator Name Role Phone Supriya Hay Primary Care Provider +1- [phone] Helio Carrera MD Unavailable +1- [phone] Reason for Visit * Reason Onset Date Comments Leg Pain 11/29/2021 Encounter Details Date Type Department Care Team (Late st Contact Info) Description 11/29/2021 Nurse Triage [facility] Family Medicine [address] [place] [address] Supriya Hay PA [address] [place] [address] Social History Tobacco Use Types [...] PM CDT 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 * Telephone Encounter - Supriya Hay PA - 12/01/2021 5:06 PM CDT Please call and check on patient? Did she go to the ER in [place] as instructed? If yes, what was done -- (get records) If no, what are her symptoms. If still in [place], probably needs to be seen as difficulty to treat when not able to be evaluated. If in town, please get her scheduled. * Telephone Encounter - Marcela Duvall RN - 11/29/2021 9:22 PM CDT Aziza Lockhart calling with worsening BLE edema. Pt went to [facility] 11/16 for pain and swelling of both feet. She states ultrasound looking for blood clots was negative. Feet have remained swollen and she was trying to get office visit to follow up. Today swelling got worse and now comes up above ankles appx [address] from ankle to knee on both sides. She feels intermittent tingling like her feet are falling asleep and a little more tired/SOB walking long distances. Dispo: ED or PCP triage. Sent SC to performance management consultant provider Mary Kerr NP to advise. Pt is currently out of town in [place] and wanted provider recommendation on if she needed to go to ED tonight. Provider responded that pt needed to go to ED tonight. Called pt back and notified her that she needed to go to ED tonight. Pt verbalized understanding and planned to follow advice. Pt agrees to call back with further questions/concerns and to follow up after ED visit. Routing to Supriya Hay PA clinical pool as FYI. Reason for Disposition [1] Difficulty breathing with exertion (e.g., walking) AND [2] new-onset or worsening Protocols used: Leg Swelling and [id number] * Telephone Encounter - Marcela Duvall RN - 11/29/2021 8:58 PM CDT Regarding: Leg pain ----- Message from Mary Spivey sent at 11/29/2021 8:53 PM CDT ----- Re: started almost 2 weeks ago, went to ER last week, feet are swelling going up to her legs, no pain documented in this encounter Plan of Treatment Not on file documented as of this encounter Visit Diagnoses Not on filedocumented in this encounter Care Teams Natural Science Curator Relationship Specialty Start Date End Date Supriya Hay PA [address] [place] [address] PCP - General Internal Medicine 02/21/20 Helio Carrera MD [address] [facility] [address] [place] [address] Referring Physician Obstetrics and Gynecology 09/03/21 documented as of this encounter
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
--- OUTSIDE RECORDS SUMMARY | 2024-04-01 05:53 | XMS_ITS | Encounter Summary ---
Author Organization [facility] Healthcare Address [address] [place] [address] Care Team Providers Care Printing Screen Assembler Name Role Phone Supriya Hay Primary Care Provider [phone]- [phone] Helio Carrera MD Unavailable [phone] Reason for Referral * MRI/CAT/PET Scan (Routine) - Closed Specialty Diagnoses / Procedures Referred By Melissa swanson Referred To Contact Radiology Diagnoses Lesion of pancreas Procedures MRI Abdomen MRCP W WO Contrast Rolo Salazar MD [address] [place] [address] Phone: tel: fax: [address] [address] Referral ID Status Reason Start Date Expiration Date Visits Re quested Visits Authorized [id number] Closed 12/11/2021 12/11/2022 1 1 Reason for Visit * Reason Onset Date Comments GI Preprocedure 12/10/2021 Encounter Details Date Type Department Care Team ([facility] Contact Info) Description 12/10/2021 Telephone [facility] Specialty Services [address] [place] [phone] Blessing De Anda RN GI Preprocedure Social History Tobacco Use Types Packs/Day Years Used Date Smoking Tobacco: Never Smokeless Tobacco: Never Alcohol Use Standard Drinks/Week Comments Never 0 (1 standard drink = 0.6 oz pur e alcohol) AUDIT-C Answer Date Recorded Q1: How often do you have a drink containing alcohol? Never 12/03/2021 Q2: How many drinks containi ng alcohol do you have on a typical day when you are drinking? Patient does not drink Q3: How often do you have si x or more drinks on one occasion? 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 EUS Received: Today Valerie Hu [facility] Biliary Procedure Referrals Albino Sherman MD McGee, Kaylha EUS with any provider with MRCP prior Previous Messages ----- Message ----- From: Valerie Hu Sent: 12/10/2021 12:15 PM CDT To: Albino Brown MD Subject: FW: soheila Please advise on schedulin. Office visit versus direct procedure (specify procedure) 2. Urgency/timeframe to schedule 3. Dx 4. Covid Test? ----- Message ----- From: Mckenzie Granado Sent: 12/10/2021 9:53 AM CDT To: Jordy Casiano Gi Biliary [address] Subject: soheila Internal referral, records in [facility]Care Everywhere. Please advise on scheduling. PROCEDURE Type: EUS Indication: pancreatic lesion Referring Physician: Supriya HERNANDEZ Date Referred: 12/10/2021 CLINICAL ASSESSMENT [x]COVID Screening questions [x] Covid vaccination yes []BMI>45, Weight >350 lbs (if yes, note restrictions below) BMI Readings from Last 1 Encounters: 12/03/21 34.20 kg/m?? Wt Readings from Last 1 Encounters: 12/03/21 84.8 kg (187 lb) [] Patient had GI procedure/CPAP clinic/GI clinic <30 days (if Yes, no medical screening questions needed unless new clinical issues in last 30 days) Medical screening questions: BMI/Weight: NA CARDIOVASCULAR: None RESPIRATORY/LUNG: None RENAL/LIVER/GI: None BLEEDING/CLOTTING: None hx of anemia NEUROLOGICAL: None ENDOCRINE: None PRIOR PROCEDURE ISSUES: None PHOTO STUDIO ASSISTANT/: NA IMPLANTS.: None Notes: DIABETIC MEDS Y/N: No/NA []Yes- Discuss diabetes medication management with prescribing physician DIALYSIS Y/N: No/NA []HD- Schedule on non-HD day, see protocol []PD- Drain PD fluid AM of procedure, if colonoscopy order AB ppx, see protocol PACEMAKER/ICD Y/N: No/NA Device info: Last documented device check: Any shocks since last cards visit (if yes must see cardiology for procedure clearance): BLOOD THINNERS/ANTICOAG/ANTIPLATELET (BESIDES ASA) Medication: NONE Physician contacted for hold order/date sent: Hold order Method sent: Date hold received: Hold instructions: CONTINUE ASPIRIN INFORMATION REQUESTED [x]Imaging: MRCP 12/23/2021 6:30am/6:00am arrival []Medical Progress Note/H&P []Medication list []Other: PATIENT OPTIMIZATION []Physician reviewing escalation: []CPAP: Date scheduled: Outcome : [] Location limitations: Scheduling Scheduling location limitations:no danny Italian Teacher needed [x] NA Language: POA [x] NA Name: SPECIAL PROCEDURE INSTRUCTIONS Scheduling Notes Procedure information Date of procedure: 12/23/2021 Time of procedure: 10:00am Arrival time: 9:00am Location: [facility] Proceduralist: Rolo Salazar MD Instructions Method of instructions: Mailed copy 12/11/2021 [x]Confirmation of ride/development coordinator [x]Post anesthesia restrictions given [x]NPO Instructions: Nothing to eat after midnight on 12/22/2021, clear liquids until 4:00am. 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 No suspicious pancreatic lesions. Dictated by: Tristen Simmons M.D. The radiology attending physician has personally reviewed this study, and had reviewed and/or edited this written report and agrees with it. Electronically signed by: Bryan Richey M.D. Narrative 12/23/2021 12:20 PM CDT EXAMINATION: 1. MAGNETIC RESONANCE IMAGING OF THE ABDOMEN WITH AND WITHOUT CONTRAST 2. THREE DIMENSIONAL RECONSTRUCTION OF THE BILIARY TREE AND PANCREATIC DUCT HISTORY: Pancreatic lesion. TECHNIQUE: Magnetic resonance imaging of the abdomen was performed prior to and following the uneventful administration of intravenous Gadolinium contrast. The raw data was processed on the scanner by the technologist for 3 dimensional reconstructions of the intrahepatic ducts, extrahepatics ducts, and pancreatic duct. Protocol: Liver MRCP Contrast: gadoterate 18 mL COMPARISON: 06/29/2018, 11/19/2015 FINDINGS: Liver: No significant steatosis or iron deposition. Normal surface contour. - Bile ducts: Nondilated. - Focal liver lesions: No suspicious lesions. - Vasculature: Patent portal and hepatic veins. Gallbladder: Surgically absent. Pancreas: No suspicious pancreatic lesions. There is a 6 mm circumscribed lipoma in the pancreatic tail (series 4, image 28). No suspicious features or pancreatic ductal dilatation. Spleen: Normal. Adrenals: Normal. Kidneys: Normal. Other Findings: Small hiatal hernia. Post surgical changes from umbilical hernia repair. No lymphadenopathy of suspicious osseous lesions. Procedure Note Bryan Richey MD - 12/23/2021 EXAMINATION: 1. MAGNETIC RESONANCE IMAGING OF THE ABDOMEN WITH AND WITHOUT CONTRAST 2. THREE DIMENSIONAL RECONSTRUCTION OF THE BILIARY TREE AND PANCREATIC DUCT HISTORY: Pancreatic lesion. TECHNIQUE: Magnetic resonance imaging of the abdomen was performed prior to and following the uneventful administration of intravenous Gadolinium contrast. The raw data was processed on the scanner by the technologist for 3 dimensional reconstructions of the intrahepatic ducts, extrahepatics ducts, and pancreatic duct. Protocol: Liver MRCP Contrast: gadoterate 18 mL COMPARISON: 06/29/2018, 11/19/2015 FINDINGS: Liver: No significant steatosis or iron deposition. Normal surface contour. - Bile ducts: Nondilated. - Focal liver lesions: No suspicious lesions. - Vasculature: Patent portal and hepatic veins. Gallbladder: Surgically absent. Pancreas: No suspicious pancreatic lesions. There is a 6 mm circumscribed lipoma in the pancreatic tail (series 4, image 28). No suspicious features or pancreatic ductal dilatation. Spleen: Normal. Adrenals: Normal. Kidneys: Normal. Other Findings: Small hiatal hernia. Post surgical changes from umbilical hernia repair. No lymphadenopathy of suspicious osseous lesions. 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 No suspicious pancreatic lesions. Dictated by: Tristen Simmons M.D. The radiology attending physician has personally reviewed this study, and had reviewed and/or edited this written report and agrees with it. Electronically signed by: Bryan Richey M.D. us Rolo Salazar MD IM MRI PROCEDURES Final Re sult documented in this encounter Visit Diagnoses Diagnosis Lesion of pancreas- Primary Lesion of pancreas documented in this encounter Care Teams Printing Screen Assembler Relationship Specialty Start Date End Date Supriya Hay PA [address] [facility] [address] [place] [address] PCP - General Internal Medicine 02/21/20 Helio Carrera MD [address] [address] Referring Physician Obstetrics and Gynecology 09/03/21 documented as of this encounter
--- OUTSIDE RECORDS SUMMARY | 2024-04-01 05:53 | XMS_ITS | Encounter Summary ---
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 Gender Identity Female 11/16/2022 3:54 PM CDT Sexual Orientation Straight 11/16/2022 3: 54 PM CDT documented as of this encounter Progress Notes * Mady Darnell RN - 04/13/2022 11:30 AM CST Closing research encounter documented in this encounter Plan of Treatment Not on file documented as of this encounter Visit Diagnoses Diagnosis Research exam- Primary documented in this encounter Care Teams Technician Biological Health Relationship Specialty Start Date End Date Supriya Hay PA [address] [place] [address] PCP - General Internal Medicine 02/21/20 Helio Carrera MD [address] [place] [address] Referring Physician Obstetrics and Gynecology 09/03/21 documented as of this encounter
--- OUTSIDE RECORDS SUMMARY | 2024-04-01 05:53 | XMS_ITS | Encounter Summary ---
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 Gender Identity Female 11/16/2022 3:54 PM CDT Sexual Orientation Straight 11/16/2022 3: 54 PM CDT documented as of this encounter Plan of Treatment Not on file documented as of this encounter Procedures Procedure Name Priority Date/Time Associated Diagnosis Comments COLONOSCOPY Routine 04/15/2021 documented in this encounter Results * HM COLONOSCOPY (04/15/2021) Dylan Naidu DO HEALTH MAINTENANCE Final Resul t documented in this encounter Visit Diagnoses Not on filedocumented in this encounter Care Teams Ground Worker Relationship Specialty Start Date End Date Supriya Hay PA [address] [facility] [address] [place] [address] PCP - General Internal Medicine 02/21/20 documented as of this encounter
--- OUTSIDE RECORDS SUMMARY | 2024-04-01 05:53 | XMS_ITS | Encounter Summary ---
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 Gender Identity Female 11/16/2022 3:54 PM CDT Sexual Orientation Straight 11/16/2022 3: 54 PM CDT documented as of this encounter Plan of Treatment Not on file documented as of this encounter Procedures Procedure Name Priority Date/Time Associated Diagnosis Comments SCAN - RADIOLOGY/IMAGING 10/05/2020 documented in this encounter Results * SCAN - RADIOLOGY/IMAGING (10/05/2020) Anatomical Region Laterality Modality Other us Provider Scanning Edited Result - Final documented in this encounter Visit Diagnoses Not on filedocumented in this encounter Care Teams Medical Reimbursement Manager Relationship Specialty Start Date End Date Supriya Hay PA [address] [place] [address] PCP - General Internal Medicine 02/21/20 Helio Carrera MD [address] [place] [address] Referring Physician Obstetrics and Gynecology 09/03/21 documented as of this encounter
--- OUTSIDE RECORDS SUMMARY | 2024-04-01 05:53 | XMS_ITS | Encounter Summary ---
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 Gender Identity Female 11/16/2022 3:54 PM CDT Sexual Orientation Straight 11/16/2022 3: 54 PM CDT documented as of this encounter Plan of Treatment Not on file documented as of this encounter Procedures Procedure Name Priority Date/Time Associated Diagnosis Comments HM COLONOSCOPY Routine 04/15/2021 documented in this encounter Results * HM COLONOSCOPY (04/15/2021) Dylan Naidu DO HEALTH MAINTENANCE Edited Resu lt - Final documented in this encounter Visit Diagnoses Not on filedocumented in this encounter Care Teams Pulling Unit Operator Relationship Specialty Start Date End Date Supriya Hay PA [address] [address] PCP - General Internal Medicine 02/21/20 documented as of this encounter
--- OUTSIDE RECORDS SUMMARY | 2024-04-01 05:53 | XMS_ITS | Encounter Summary ---
Author Organization [facility] Address [address] [place] [address] Care Team Providers Care Mercantile Agent Name Role Phone Supriya Hay Primary Care Provider +- [phone] Helio Carrera MD Unavailable [phone] Reason for Referral * Cardiology (Routine) - Closed Specialty Diagnoses / Procedures Referred By Melissa swanson Referred To Contact Diagnoses Edema, lower extremity Procedures Transthoracic Echo (TTE) Complete W Doppler/CF Supriya aHy PA [address] [place] [address] Phone: tel: fax: [address] [phone] Referral ID Status Reason Start Date Expiration Date Visits Re quested Visits Authorized [id number] Closed 12/03/2021 01/02/2023 1 1 Reason for Visit * Reason Comments Follow-up Leg Swelling Encounter Details Date Type Department Care Team (Late Contact Info) Description 12/03/2021 8:00 AM CDT Office Visit [facility] Family Medicine [address] [place] [address] Supriya Hay PA [address] [place] [address] Edema, lower extremity (Primary Dx); BMI 34.0-34.9,adult; Obesity (BMI 30-39.9); Pancreatic lesion Social History Tobacco Use Types Packs/Day Years [...] PM CDT Legal Sex 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 Gender Identity Female 11/16/2022 3:54 PM CDT Sexual Orientation Straight 11/16/2022 3: 54 PM CDT documented as of this encounter Last Filed Vital Signs Vital Sign Reading Time Taken Comments Blood Pressure 116/78 12/03/2021 9:32 AM CDT Pulse 74 12/03/2021 9:32 AM CDT Temperature 36.8 ??C (98.3 ??F) 12/03/2021 9:32 AM CD T Respiratory Rate - - Oxygen Saturation 97% 12/03/2021 9:32 AM CDT Inhaled Oxygen Concentration - - Weight 84.8 kg (187 lb) 12/03/2021 9:32 AM CDT Height 157.5 cm (5' 2 ) 12/03/2021 9:32 AM CDT Body Mass Index 34.2 12/03/2021 9:32 AM CDT documented in this encounter Patient Instructions * Patient Instructions* Supriya Hay PA - 12/03/2021 8:00 AM CDT Images from the original note were not included. Patient Education DASH Eating Plan COURT MAGISTRATE: The DASH (Dietary Approaches to Stop Hypertension) Eating Plan is designed to help prevent or lowerhigh blood pressure. It can also help to lower LDL (bad) cholesterol and decrease your risk for heart disease. The plan is low in sodium, sugar, unhealthy fats, and total fat. It is high in potassium, calcium, magnesium, and fiber. These nutrients are added when you eat more fruits, vegetables, andwhole grains. Your sodium limit each day: Your dietitian will tell you how much sodium is safe for you to have each day. People with high blood pressure should have no more than 1,500 to 2,300 mg of sodium in a day. A teaspoon (tsp) of salt has 2,300 mg of sodium. This may seem like a difficult goal, but small changes to the foods you eat can make a big difference. Your healthcare provider or dietitian can help you create a meal plan that follows your sodium limit. How to limit sodium: Read food labels. Food labels can help you choose foods that are low in sodium. The amount of sodium is listed in milligrams (mg). The % Daily Value (DV) column tells you how much of your daily needsare met by 1 serving of the food for each nutrient listed. Choose foods that have less than 5% of the DV of sodium. These foods are considered low in sodium. Foods that have 20% or more of the DV of s odium are considered high in sodium. Avoid foods that have more than 300 mg of sodium in each serving. Choose foods that say low-sodium, reduced-sodium, or no salt added on the food label. Avoid salt. Do not salt food at the table, and add very little salt to foods during cooking. Use herbs and spices, such as onions, garlic, and salt-free seasonings to add flavor to foods. Try lemon or shoalwater juice or vinegar to give foods a tart flavor. Use hot peppers or a small amount of hot peppersauce to add a spicy flavor to foods. Ask about salt substitutes. Ask your healthcare provider if you may use salt substitutes. Some saltsubstitutes have ingredients that can be harmful if you have certain health conditions. Choose foods carefully at restaurants. Meals from restaurants, especially fast food restaurants, are often high in sodium. Some restaurants have nutrition information that tells you the amount of sodium in their foods. Ask to have your food prepared with less, or no salt. What you need to know about fats: Include healthy fats. Examples are unsaturated fats and omega-3 fatty acids. Unsaturated fats are found in soybean, canola, olive, or sunflower oil, and liquid and soft tub margarines. Ringgold-3 fatty acids are found in fatty fish, such as salmon, tuna, mackerel, and sardines. It is also found in flaxseed oil and ground flaxseed. Avoid unhealthy fats. Do not eat unhealthy fats, such as saturated fats and trans fats. Saturated fats are found in foods that contain fat from animals. Examples are fatty meats, whole milk, butter, cream, and other dairy foods. It is also found in shortening, stick margarine, palm oil, and coconutoil. Trans fats are found in fried foods, crackers, chips, and baked goods made with margarine or shortening. Foods to include: With the DASH eating plan, you need to eat a certain number of servings from eachfood group. This will help you get enough of certain nutrients and limit others. The amount of servings you should eat depends on how many calories you need. Your dietitian can tell you how many calories you need. The number of servings listed next to the food groups below are for people who need about 2,000 calories each day. Grains: 6 to 8 servings (3 of these servings should be whole-grain foods) 1 slice of whole-grain bread 1 ounce of dry cereal ?? cup of cooked cereal, pasta, or brown rice Vegetables and fruits: 4 to 5 servings of fruits and 4 to 5 servings of vegetables 1 medium fruit ?? cup of frozen, canned (no added salt), or chopped fresh vegetables ?? cup of fresh, frozen, dried, or canned fruit (canned in light syrup or fruit juice) ?? cup of vegetable or fruit juice Dairy: 2 to 3 servings 1 cup of nonfat (skim) or 1% milk 1?? ounces of fat-free or low-fat cheese 6 ounces of nonfat or low-fat yogurt Lean meat, poultry, and fish: 6 ounces or less Poultry (chicken, turkey) with no skin Fish (especially fatty fish, such as salmon, fresh tuna, or mackerel) Lean beef and pork (loin, round, extra lean hamburger) Egg whites and egg substitutes Nuts, seeds, and legumes: 4 to 5 servings each week ?? cup of cooked beans and peas 1?? ounces of unsalted nuts 2 tablespoons of peanut butter or seeds Sweets and added sugars: 5 or less each week 1 tablespoon of sugar, jelly, or jam ?? cup of sorbet or gelatin 1 cup of lemonade Fats: 2 to 3 servings each day 1 teaspoon of soft margarine or vegetable oil 1 tablespoon of mayonnaise 2 tablespoons of salad dressing Foods to avoid: Grains: Baked goods, such as doughnuts, pastries, cookies, and biscuits (high in fat and sugar) Mixes for cornbread and biscuits, packaged foods, such as bread stuffing, rice and pasta mixes, macaroni and cheese, and instant cereals (high in sodium) Fruits and vegetables: Regular, canned vegetables (high in sodium) Sauerkraut, pickled vegetables, and other foods prepared in brine (high in sodium) Fried vegetables or vegetables in butter or high-fat sauces Fruit in cream or butter sauce (high in fat) Dairy: Whole milk, 2% milk, and cream (high in fat) Regular cheese and processed cheese (high in fat and sodium) Meats and protein foods: Smoked or cured meat, such as corned beef, cyr, ham, hot dogs, and sausage (high in fat and sodium) Canned beans and canned meats or spreads, such as potted meats, sardines, anchovies, and imitation seafood (high in sodium) Deli or lunch meats, such as bologna, ham, turkey, and roast beef (high in sodium) High-fat meat (T-bone steak, regular hamburger, and ribs) Whole eggs and egg yolks (high in fat) Other: Seasonings made with salt, such as garlic salt, celery salt, onion salt, seasoned salt, meat tenderizers, and monosodium glutamate (MSG) Miso soup and canned or dried soup mixes (high in sodium) Regular soy sauce, barbecue sauce, teriyaki sauce, steak sauce, Worcestershire sauce, and most flavored vinegars (high in sodium) Regular condiments, such as mustard, ketchup, and salad dressings (high in sodium) Gravy and sauces, such as Rene or cheese sauces (high in sodium and fat) Drinks high in sugar, such as soda or fruit drinks Snack foods, such as salted chips, popcorn, pretzels, pork rinds, salted crackers, and salted nuts Frozen foods, such as dinners, entrees, vegetables with sauces, and breaded meats (high in sodium) Other guidelines to follow: Maintain a healthy weight. Your risk for heart disease is higher if you are overweight. Your healthcare provider may suggest that you lose weight if you are overweight. You can lose weight by eating fewer calories and foods that have added sugars and fat. The DASH meal plan can help you do this. Decrease calories by eating smaller portions at each meal and fewer snacks. Ask your healthcare provider for more information about how to lose weight. Exercise regularly. Regular exercise can help you reach or maintain a healthy weight. Regular exercise can also help decrease your blood pressure and improve your cholesterol levels. Get 30 minutes or more of moderate exercise each day of the week. To lose weight, get at least 60 minutes of exercise. Talk to your healthcare provider about the best exercise program for you. Limit alcohol. Women should limit alcohol to 1 drink a day. Men should limit alcohol to 2 drinks a day. A drink of alcohol is 12 ounces of beer, 5 ounces of wine, or 1?? ounces of liquor. ?? Copyright [employer] 2020 Information is for End User's use only and may not be sold, redistributed or otherwise used for commercial purposes. All illustrations and images included in CareNotes?? are the copyrighted property of [employer] or [employer] The above information is an pathology laboratory aides teacher only. It is not intended as medical advice for individual conditions or treatments. Talk to your doctor, nurse or pharmacist before following any medical regimen to see if it is safe and effective for you. documented in this encounter Ordered Prescriptions Prescription Sig Dispense Quantity Refills Last Filled Start Date End Date hydroCHLOROthiazid e (HYDRODIURIL) 25 mg tabletIndications: Edema, lower extremity Take 1 tablet (25 mg total) by mouth daily 30 tablet 12/03/2021 01/01/2022 documented in this encounter Progress Notes * Supriya Hay PA - 12/03/2021 8:00 AM CDT Subjective/Objective Patient ID: Aziza Lockhart is a 41 y.o. female. Chief Complaint Follow-up and Leg Swelling HPI Last seen in the office 05/2020. No showed 5 appointments since that visit. She presents today at my request after having 2 ER visits with Venous Doppler followup 1 week apart. Stressed importance of visit to determine appropriate plan. Patient states she doesn't take any daily medications. Is traveling a lot -- Has been traveling every weekend to [place] so eating out/fast food on the weekends. States the swelling goes down overnight but will increase thru the day. For the last 3 weeks the legs are swelling up and down. . Has been seen in the ER twice. [place] on 11/18. Was in [place] last time she called and was encouraged to be seen at the ER but didn't go until she came home Went to [facility] on 12/01. Denies CP, SOB (when the swelling occurs) but resolves once it goes down. On 11/18/2021 Recvd a call from [place] stating the STAT Venous doppler that was ordered by [facility] was negative. After contacting the patient determined she went to [facility] overnight for (B) LE edema and was negative for DVT. Encouraged her to followup in the office but appt was not set. Er sent her home on Diclofenac. 12/01/2021 went to ER [facility] for LE swelling that was further up her leg. EKG - essentially normal/no change. LABS -- essentially normal Ddimer 606 Negative Bhcg CTA Chest 12/01/2021 IMPRESSION: 1. No pulmonary embolism. No acute cardiopulmonary disease process. 2. Cholecystectomy. 3. 6 mm lesion in the pancreatic tail is indeterminate for a small lipoma. If further workup is desired, would consider IV enhanced pancreatic MRI. CXR 12/01/2021 - IMPRESSION: No radiographic evidence of acute chest disease Today -- No swelling at all in the legs. Has sandals on without any markings. Calves are both soft without any tenderness. Review of Systems See HPI Vitals: 12/03/21 0932 BP: 116/78 BP Location: Left arm Patient Position: Sitting Pulse: 74 Temp: 36.8 ??C (98.3 ??F) TempSrc: Oral SpO2: 97% Weight: 84.8 kg (187 lb) Height: 157.5 cm (5' 2 ) Physical Exam Vitals and nursing note reviewed. Constitutional: Appearance: Normal appearance. She is well-developed. HENT: Head: Normocephalic and atraumatic. Eyes: Comments: Pupils are equal Cardiovascular: Rate and Rhythm: Normal rate and regular rhythm. Heart sounds: No murmur heard. Pulmonary: Effort: Pulmonary effort is normal. Breath sounds: Normal breath sounds. Abdominal: Palpations: Abdomen is soft. Tenderness: There is no abdominal tenderness. Musculoskeletal: Comments: No Lower extremity edema at all. Calves are without pain or swelling or redness. Skin: General: Skin is warm and dry. Findings: No rash. Neurological: Mental Status: She is alert and oriented to person, place, and time. Assessment/Plan Diagnoses and all orders for this visit: Edema, lower extremity (R60.0) (Primary) Assessment & Plan: Patient has noted lower extremity edema since she has been traveling more. Upon reviewing dash dietand what constitutes 2000 mg of sodium a day it is evident that especially when she is traveling she is eating out at fast food and at restaurants and is exceeding this by quite a bit. Her swelling is definitely intermittent and improves when she is at home. Suspect this is more dietary related anddependent edema. She has had a negative DVT at [facility]. She has absolutely no swelling nosymptoms today had a negative CT a of the chest just 2 days ago with no pulmonary embolism. Discussed getting another venous Doppler but I do not suspect that that is needed since she is completely as ymptomatic today. Encouraged her to start wearing compression stockings. Follow dash diet and keep her sodium intake to less than 2000 mg a day. Will start hydrochlorothiazide 25 mg to pull off a little extra fluid. Encouraged her to move her legs while she is traveling whether it is by plane or bycar. If her symptoms worsen or do not resolve she is to follow up immediately for further evaluation. Will go ahead and get an echo since it has been more persistent and she is concerned. Orders: - hydroCHLOROthiazide (HYDRODIURIL) 25 mg tablet; Take 1 tablet (25 mg total) by mouth daily - Transthoracic Echo (TTE) Complete W Doppler/CF; Future BMI 34.0-34.9,adult (Z68.34) Assessment & Plan: Discussed the patient's BMI. The BMI is above average. BMI management plan is completed. BMI Follow-up includes: nutrition counseling, exercise counseling and education provided. Obesity (BMI 30-39.9) (E66.9) Assessment & Plan: Discussed the patient's BMI. The BMI is above average. BMI management plan is completed. BMI Follow-up includes: nutrition counseling, exercise counseling and education provided. Pancreatic lesion (K86.9) Assessment & Plan: CTA Chest 12/01/2021 IMPRESSION: 6 mm lesion in the pancreatic tail is indeterminate for a small lipoma. If further workup is desired, would consider IV enhanced pancreatic MRI. Reviewed with patient. Encouraged getting the MRI of the pancreas with contrast as suggested by Radiology. Will follow-up pending these results. [facility] Orders: - MRI Abdomen Pancreas W Contrast; Future *This note is dictated using [employer] voice recognition software, variances in spelling and vocabulary are possible and unintentional.* Supriya Hay PA-C documented in this encounter Miscellaneous Notes * Assessment & Plan Note - Supriya Hay PA - 12/03/2021 8:24 PM CDT Associated Problem(s): Edema, lower extremity Patient has noted lower extremity edema since she has been traveling more. Upon reviewing dash dietand what constitutes 2000 mg of sodium a day it is evident that especially when she is traveling she is eating out at fast food and at restaurants and is exceeding this by quite a bit. Her swelling is definitely intermittent and improves when she is at home. Suspect this is more dietary related anddependent edema. She has had a negative DVT at [facility]. She has absolutely no swelling nosymptoms today had a negative CT a of the chest just 2 days ago with no pulmonary embolism. Discussed getting another venous Doppler but I do not suspect that that is needed since she is completely as ymptomatic today. Encouraged her to start wearing compression stockings. Follow dash diet and keep her sodium intake to less than 2000 mg a day. Will start hydrochlorothiazide 25 mg to pull off a little extra fluid. Encouraged her to move her legs while she is traveling whether it is by plane or bycar. If her symptoms worsen or do not resolve she is to follow up immediately for further evaluation. Will go ahead and get an echo since it has been more persistent and she is concerned. * Assessment & Plan Note - Supriya Hay PA - 12/03/2021 8:24 PM CDT Associated Problem(s): Obesity (BMI 30-39.9) (Resolved 01/22/2022) Discussed the patient's BMI. The BMI is above average. BMI management plan is completed. BMI Follow-up includes: nutrition counseling, exercise counseling and education provided. * Assessment & Plan Note - Supriya Hay PA - 12/03/2021 8:21 PM CDT Associated Problem(s): Pancreatic lesion CTA Chest 12/01/2021 IMPRESSION: 6 mm lesion in the pancreatic tail is indeterminate for a small lipoma. If further workup is desired, would consider IV enhanced pancreatic MRI. Reviewed with patient. Encouraged getting the MRI of the pancreas with contrast as suggested by Radiology. Will follow-up pending these results. [facility] * Assessment & Plan Note - Supriya Hay PA - 12/03/2021 8:20 PM CDT Associated Problem(s): BMI 34.0-34.9,adult (Resolved 01/22/2022) Discussed the patient's BMI. The BMI is above average. BMI management plan is completed. BMI Follow-up includes: nutrition counseling, exercise counseling and education provided. documented in this encounter Plan of Treatment Not on file documented as of this encounter Results * TRANSTHORACIC ECHO (TTE) [...] :Name: AZIZA LOCKHART Study Date: 11/19/2022 Status: MHB: : Patient Location: [facility] C[facility] TST^^^MHBHeight: 62in : : Weight: 184lbBP: 109/82 mmHg: :: 1980 Gender: Female BSA: 1.8 m2: :Reason For Study: edema: :Ordering Physician:: :SUPRIYA HAY: :Referring Physician:: :SUPRIYA HAY: :Performed By: Stephenie: :IRANA Duran: + ----- -------+ Procedure A two-dimensional [...] by: Damon Alvares MD 11/26/2022 08:14 PM Supriya HERNANDEZ CV ECHO PROCEDURES Final R esult documented in this encounter Visit Diagnoses Diagnosis Edema, lower extremity- Primary BMI 34.0-34.9,adult Obesity (BMI 30-39.9) Pancreatic lesion Edema, lower extremity documented in this encounter Discontinued Medications Medication Sig Discontinue Reason Start Date End Da te tiZANidine (ZANAFLEX) 4 mg tablet Take 1 tablet PO HS PRN 06/20/2020 12/03/2021 cyclobenzaprine (FLEXERIL) 10 mg tablet Take 10 mg by mouth 3 (three) times a day as needed 10/05/2020 12/03/2021 meloxicam (MOBIC) 7.5 mg tablet Take 1 tablet (7.5 mg total) by mouth daily 05/23/2020 12/03/2021 diclofenac (CATAFLAM) 50 mg tablet Take 50 mg by mouth 3 (three) times a day as needed for pain 11/17/2021 12/03/2021 documented as of this encounter Historical Medications * This list may reflect changes made after this encounter. diclofenac (CATAFLAM) 50 mg tablet Take 50 mg by mouth 3 (three) times a day as needed for pain 11/17/2021 12/03/2021 cyclobenzaprine (FLEXERIL) 10 mg tablet Take 10 mg by mouth 3 (three) times a day as needed 10/05/2020 12/03/2021 added in this encounter Care Teams Mercantile Agent Relationship Specialty Start Date End Date Supriya Hay PA [address] [place] [address] PCP - General Internal Medicine 02/21/20 Helio Carrera MD [address] [place] [address] Referring Physician Obstetrics and Gynecology 09/03/21 documented as of this encounter
--- OUTSIDE RECORDS SUMMARY | 2024-04-01 05:53 | XMS_ITS | Encounter Summary ---
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 Gender Identity Female 11/16/2022 3:54 PM CDT Sexual Orientation Straight 11/16/2022 3: 54 PM CDT documented as of this encounter Plan of Treatment Not on file documented as of this encounter Procedures Procedure Name Priority Date/Time Associated Diagnosis Comments HM COLONOSCOPY Routine 02/25/2021 documented in this encounter Results * HM COLONOSCOPY (02/25/2021) Dylan Naidu DO HEALTH MAINTENANCE Edited Resu lt - Final documented in this encounter Visit Diagnoses Not on filedocumented in this encounter Care Teams Software Licensing Analyst Relationship Specialty Start Date End Date Supriya Hay PA [address] [address] PCP - General Internal Medicine 02/21/20 documented as of this encounter
--- OUTSIDE RECORDS SUMMARY | 2024-04-01 05:53 | XMS_ITS | Encounter Summary ---
Author Organization [facility] Medical [facility] Address [address] [place] [address] Care Team Providers Care Child Welfare Assistant Name Role Phone Supriya Hay Primary Care Provider +1- [phone] Helio Carrera MD Unavailable +- [phone] Reason for Visit * Reason Onset Date Comments Authorization/Certification 12/02/2021 Encounter Details Date Type Department Care Team (Late st Contact Info) Description 12/02/2021 Telephone [facility] Family Medicine [address] [place] [address] Supriya Hay PA [address] [place] [address] Authorization/Certifica tion Social History Tobacco Use Types Packs/Day Years [...] PM CDT 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 * Telephone Encounter - Demetria Wilcox - 12/02/2021 1:24 PM CDT Call Back Caller???s Concern: Zulema with [facility] is calling to follow up on the previous messages for authorization as the patient is scheduled for a test ordered by Supriya for today at 3:30. Per multiple communications, called back line. Was placed on a hold and then told to advise Zulema tohave the patient to call the office to clear things up as they are unsure if this test is needed. Zulema understood and will have the patient call. Caller???s Call back #: [phone] Does message need to be routed? No * Telephone Encounter - Patti Vogt - 12/02/2021 11:41 AM CDT Call Back Caller???s Concern: Zulema called back and said the pt is now back on the schedule for 3:30 today, says she still needs an Authorization, and is unsure if Amilcar would be able to obtain that within a couple of hours. Zulema would like to know how to proceed with this appt, she would like to know if they should hold off until authorization is in. Says right now it's listed as routine, not emergency. Please advise. Caller???s Call back #: [phone] Does message need to be routed? Yes-Action Needed * Telephone Encounter - Gloria Vasquez MA - 12/02/2021 8:44 AM CDT Call Back Caller???s Concern: Zulema is calling back stating disregard. This test was cancelled. Caller???s Call back #: [phone] Does message need to be routed? Yes-Action Needed * Telephone Encounter - Jyoti Waldrop - 12/02/2021 8:28 AM CDT Authorization/Certification Type of Auth/Cert Needed: Pre- Certification for Test Type of caller:Facility Type of test needed (CPT code if available): 35444 for ultrasound lower extremity, bilateral Reason for test or diagnosis (diagnosis code if available): R79.889 Is insurance in chart accurate? Yes, [place] Facility name: [facility] Facility NPI# (if available): [id number] Facility phone#: [phone] Facility fax#: [phone] Date test is scheduled: Patient seen today at 7:30 am Caller's Callback #: [phone] Additional Comments: [facility] is out of network, requesting an out of network pre certification Does message need to be routed?Yes-Action Needed documented in this encounter Plan of Treatment Not on file documented as of this encounter Visit Diagnoses Not on filedocumented in this encounter Care Teams Child Welfare Assistant Relationship Specialty Start Date End Date Supriya Hay PA [address] [place] [address] PCP - General Internal Medicine 02/21/20 Helio Carrera MD [address] [place] [address] Referring Physician Obstetrics and Gynecology 09/03/21 documented as of this encounter
--- OUTSIDE RECORDS SUMMARY | 2024-04-01 05:53 | XMS_ITS | Encounter Summary ---
Author Organization [facility] Medical Group Address [address] [place] [address] Care Team Providers Care Polls Or Surveys Interviewer Name Role Phone Supriya Hay Primary Care Provider +1- [phone] Helio Carrera MD Unavailable [phone] Encounter Details Date Type Department Care Team (Late st Contact Info) Description 12/05/2021 Orders Only [facility] Family Medicine [address] [place] [address] Cait Pino LPN Pancreatic lesion (Primary Dx) Social History Tobacco Use Types [...] PM CDT 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 Gender Identity Female 11/16/2022 3:54 PM CDT Sexual Orientation Straight 11/16/2022 3: 54 PM CDT documented as of this encounter Plan of Treatment Not on file documented as of this encounter Visit Diagnoses Diagnosis Pancreatic lesion- Primary documented in this encounter Care Teams Polls Or Surveys Interviewer Relationship Specialty Start Date End Date Supriya Hay PA [address] [place] [address] PCP - General Internal Medicine 02/21/20 Helio Carrera MD [address] [place] [address] Referring Physician Obstetrics and Gynecology 09/03/21 documented as of this encounter
--- OUTSIDE RECORDS SUMMARY | 2024-04-01 05:53 | XMS_ITS | Encounter Summary ---
Author Organization [facility] Healthcare Address [address] [place] [address] Care Team Providers Care Information Technology Consultant Name Role Phone Supriya Hay Primary Care Provider +1- [phone] Helio Carrera MD Unavailable +1 [phone] Reason for Visit * Auth/Cert Specialty Diagnoses / Procedures Referred By Melissa swanson Referred To Contact Diagnoses Pancreatic lesion Pancreatic lesion [K86.9] Procedures [place] EDG US EXAM SURGICAL ALTER STOM DUODENUM/JEJUNUM [place] EGD INTRMURAL NEEDLE ASPIR/BIOP ALTERED ANATOMY ESOPHAGOGASTRODUODENOSCOPY ENDOSCOPIC ULTRASOUND SG/OA Referral ID Status Reason Start Date Expiration Date Visits Re quested Visits Authorized [id number] 1 1 Encounter Details Date Type Department Care Team (Latest Contact Info) Description 12/23/2021 10:00 AM CDT - 12/23/2021 11:00 AM CDT Surgery [facility] [place] [address] [place] [address] Rolo Salazar MD [address] [place] [address] ESOPHAGOGASTRODUODENOSCOPY ENDOSCOPIC ULTRASOUND SG/OA Surgery Details Date/Time Status Location OR Service Patient Class Case Class Case Type Trauma Case? 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 Room: [facility] ENDOSCOPY ROOM 2 Note Status: Finalized Procedure: [...] obtained.The Olympus curved linear array therapeutic endosonoscope [id number] was introduced through the mouth, and advanced to the second part of duodenum The GIF [id number] endoscope was introduced through the mouth, and [...] this procedure please call my office at [phone]) to speak to my nurses. After hours and evenings please call [phone] and speak to the GI fellow [facility]. Please tell them that Dr. Salazar did [...] On: 12/23/2021 10:01 AM Recognized by the [place] [employer] for promoting quality [...] Female Attending MD: Rolo Salazar M.D. Room: [facility] ENDOSCOPY ROOM 2 Note Status: Finalized Procedure: [...] consent was obtained.The Olympuscurved linear array therapeutic [id number] was introduced through the mouth, and advanced tothe second part of duodenum The GIF [id number] endoscope was introduced through the mouth, and [...] following this procedure please call my officeat [phone] to speak to my nurses. After hours and evenings please call [phone] andspeak to the GI fellow [facility]. Please tell them that Dr. Salazar did your procedure and that your wereinstructed to have the fellow call me or the physiciancovering for me to discuss the management of your condition.If you have an urgent problem, please go to [facility] emergency room and have the [...] On: 12/23/2021 10:01 AM Recognized by the [place] [employer] for promoting quality in endoscopy Rolo Salazar MD ENDOSCOPY PROCEDURES Final Result * POCT hCG, urine (12/23/2021 8:12 AM CDT) HCG, ur, POC Negative Lot Number [id number]\ QC Backgroud Clear Acceptable QC Control Line Acceptable Urine 12/23/2021 8:12 AM CDT Rolo Salazar MD POINT OF CARE TEST ORDERABL ES Final Result documented in this encounter Visit Diagnoses Diagnosis Pancreatic lesion Pancreatic lesion documented in this encounter Administered Medications Inactive Administered Medications - up to 3 most recent administrations Medication Order MAR Action Action Date Dose Rate Site ondansetron (ZOFRAN) injection 4 mg 4 mg, intravenous, Administer over 2 Minutes, Every 6 hours PRN, nausea, vomiting, Starting on e 12/23/21 at 0804, Pre-Procedure (GI) sodium chloride 0.9% flush 0.5-20 mL 0.5-20 mL, intra-catheter, As needed, line care, Starting on Tu12/23/21 at 0804, Pre-Procedure (GI), Flush volume based [...] infusion 30 mL/hr, intravenous, Continuous, Starting on Wed12/23/21 at 0845, Pre-Procedure (GI) 1014 (New Bag - Prov ider: Regan Malik CRNA)1057 (Stopped - Provider: Megan Park RN) PRN Medication Order 12/21/2021 12/22/2021 12/23/2021 ondansetron (ZOFRAN) injection 4 mg 4 mg, intravenous, Administer over 2 Minutes, Every 6 hours PRN, nausea, vomiting, Starting on Wed12/23/21 at 0804, Pre-Procedure (GI) sodium chloride 0.9% flush 0.5-20 mL 0.5-20 mL, intra-catheter, As needed, line care, Starting on Wed12/23/21 at 0804, Pre-Procedure (GI), Flush volume based [...] 12/23/2021 documented in this encounter Care Teams Information Technology Consultant Relationship Specialty Start Date End Date Supriya Hay PA [address] [place] [address] PCP - General Internal Medicine 02/21/20 Helio Carrera MD [address] [place] [address] Referring Physician Obstetrics and Gynecology 09/03/21 documented as of this encounter
--- OUTSIDE RECORDS SUMMARY | 2024-04-01 05:53 | XMS_ITS | Encounter Summary ---
Author Organization [facility] Medical Group Address [address] [place] [address] Care Team Providers Care Beverage Manager Name Role Phone Supriya Hay Primary Care Provider +1- [phone] Helio Carrera MD Unavailable +1- [phone] Encounter Details Date Type Department Care Team (Late st Contact Info) Description 09/04/2021 Orders Only [facility] Medical [facility] Family Medicine [address] [place] [address] Supriya Hay PA [address] [place] [address] Abnormal mammogram of both breasts (Primary Dx) Social History Tobacco Use Types [...] should administer the PHQ-9) 0 05/23/2020 Comments No Sex and Gender Information Value Date Recorded Sex Assigned at Female 11/16/2022 3:54 PM CDT 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 [address] [place] [address] Referring Physician Obstetrics and Gynecology 09/03/21 documented as of this encounter
--- OUTSIDE RECORDS SUMMARY | 2024-04-01 05:53 | XMS_ITS | Encounter Summary ---
Author Organization [facility] Healthcare Address [address] [place] [address] Care Team Providers Care Bunch Maker Hand Name Role Phone Supriya Hay Primary Care Provider +1- [phone] Helio Carrera MD Unavailable +1 [phone] Reason for Visit * Diagnostic Imaging (Routine) - Closed Specialty Diagnoses / Procedures Referred By Melissa swanson Referred To Contact Diagnoses Abnormal mammogram of both breasts Procedures US Breast Bilateral Limited US Breast Bilateral Complete Supriya Hay PA [address] [address] Phone: tel: fax: [address] [address] Referral ID Status Reason Start Date Expiration Date Visits Re quested Visits Authorized [id number] Closed 09/04/2021 10/04/2022 1 1 Encounter Details Date Type Department Care Team (Latest Contact Info) Description 09/17/2021 9:39 AM CDT - 09/17/2021 11:59 PM CDT Hospital Encounter [facility] Medical Office [address] Breast [facility] [address] [place] [address] [place] [address] Abnormal mammogram of both breasts Discharge Disposition: Discharge to home or self [...] PM CDT 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 Gender Identity Female 11/16/2022 3:54 PM CDT Sexual Orientation Straight 11/16/2022 3: 54 PM CDT documented as of this encounter Medications at Time of Discharge cyclobenzaprine (FLEXERIL) 10 mg tablet Take 10 mg by mouth 3 (three) times a day as needed 10/05/2020 2 levonorgestreL (MIRENA) IUD 1 each by intrauterine route once 3 meloxicam (MOBIC) 7.5 mg tablet Take 1 tablet (7.5 mg total) by mouth daily 30 tablet 1 05/23/2020 2 tiZANidine (ZANAFLEX) 4 mg tablet Take 1 tablet PO HS PRN 30 tablet 06/20/2020 2 documented as of this encounter Discharge Disposition Disposition Code Departure Means Destination Discharge to home or self care documented in this encounter Plan of Treatment Not on file documented as of this encounter Procedures Procedure Name Priority Date/Time Associated Diagnosis Comments US BREAST BILATERAL LIMITED Schedule Routine, Read Routine (OP Routine) 09/17/2021 10:05 AM CDT Abnormal mammogram of both breasts documented in this encounter Results * US Breast Bilateral Limited (09/17/2021 10:05 AM CDT) Anatomical Region Laterality Modality Breast Bilateral Ultrasound 09/17/2021 10:0 9 AM CDT Narrative 09/17/2021 10:12 AM CDT EXAM DESCRIPTION: ?US BREAST BILATERAL LIMITED REASON FOR STUDY: ?? 41-year-old female recalled for bilateral breast masses on baseline screening mammogram. COMPARISON: ?? Mammogram 09/03/2021 TECHNIQUE: Multiple grayscale and color Doppler ultrasound images of the bilateral breasts were obtained. FINDINGS: Targeted ultrasound of the right breast at the 8 o'clock position, 4 cm from the nipple demonstrates a 5 x 4 x 5 mm intramammary lymph node with benign morphology. ??This corresponds with the right breast mass seen on prior screening mammogram. Targeted ultrasound of the left breast at the 3 o'clock position, 9-10 cm from the nipple demonstrates a 7 x 3 x 7 mm intramammary lymph node with benign morphology. ??This corresponds with the left breast mass seen on prior screening mammogram. IMPRESSION: ?? 1. ?? Small benign lymph nodes in the bilateral breasts (right breast at 8 o'clock and left breast at 3 o'clock). ??These correspond with the masses evident on screening mammogram. 2. ?? No evidence of malignancy in either breast on limited ultrasound. Screening mammogram in 1 year is recommended. BIRADS 2 - Benign findings. COMMENT: The patient has been or will be notified of these findings and impression. THIS IS AN ELECTRONICALLY VERIFIED FINAL REPORT 09/17/2021 10:12 AM - Electronically signed by ??Raul Rashid M.D., MD: D: ??09/17/2021 10:12 AM T: ??09/17/2021 10:12 AM Report ID: [id number] Reading Location: ??[facility] Sup[facility]ya [facility] IMG MAMMO PROCEDURES Final Result documented in this encounter Visit Diagnoses Diagnosis Abnormal mammogram of both breasts documented in this encounter Care Teams Bunch Maker Hand Relationship Specialty Start Date End Date Supriya Hay PA [address] [place] [address] PCP - General Internal Medicine 02/21/20 Helio Carrera MD [address] [place] [address] Referring Physician Obstetrics and Gynecology 09/03/21 documented as of this encounter
--- OUTSIDE RECORDS SUMMARY | 2024-04-01 05:53 | XMS_ITS | Encounter Summary ---
Author Organization [facility] Medical Group Address [address] [place] [address] Care Team Providers Care Instrument Technologist Name Role Phone Supriya Hay Primary Care Provider +1- [phone] Helio Carrera MD Unavailable [phone] Encounter Details Date Type Department Care Team (Late st Contact Info) Description 09/04/2021 Telephone [facility] Medical Group Family Medicine [address] [place] [address] Danyelle Rashdi MA Social History Tobacco Use Types Packs/Day Years [...] PM CDT 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 * Telephone Encounter - Danyelle Rashid MA - 09/04/2021 3:47 PM CDT ----- Message from DAVID Edgar sent at 09/04/2021 11:31 AM CDT ----- Let patient know that her mammogram showed masses in both breasts -- these are small and the radiologists thinks they may be lymph nodes but an Ultrasound will help confirm this--- Please encourage patient to call [facility] to set an appointment. US orders placed. documented in this encounter Plan of Treatment Not on file documented as of this encounter Visit Diagnoses Not on filedocumented in this encounter Care Teams Instrument Technologist Relationship Specialty Start Date End Date Supriya Hay PA [address] [place] [address] PCP - General Internal Medicine 02/21/20 Helio Carrera MD [address] [place] [address] Referring Physician Obstetrics and Gynecology 09/03/21 documented as of this encounter
--- OUTSIDE RECORDS SUMMARY | 2024-04-01 05:53 | XMS_ITS | Encounter Summary ---
Author Organization [facility] Medical Group Address [address] [place] [address] Care Team Providers Care Milk Collector Name Role Phone Supriya Hay Primary Care Provider +1- [phone] Helio Carrera MD Unavailable [phone] Reason for Referral * Diagnostic Imaging (Routine) - Closed Specialty Diagnoses / Procedures Referred By Melissa swanson Referred To Contact Procedures US Vein Duplex Lower Extremity Left Limited Sonal Ren MD [address] [place] [address] Phone: tel: [facility] Referral ID Status Reason Start Date Expiration Date Visits Re quested Visits Authorized [id number] Closed 11/19/2021 12/19/2022 1 1 Encounter Details Date Type Department Care Team (Late st Contact Info) Description 11/19/2021 Orders Only [facility] Medical [facility] Family Medicine [address] [place] [address] ProviderSonal MD [address] [place] [address] Social History Tobacco Use Types Packs/Day Years [...] PM CDT 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 Gender Identity Female 11/16/2022 3:54 PM CDT Sexual Orientation Straight 11/16/2022 3: 54 PM CDT documented as of this encounter Plan of Treatment Not on file documented as of this encounter Procedures Procedure Name Priority Date/Time Associated Diagnosis Comments US VEIN DUPLEX LOWER EXTREMITY LEFT LIMITED Schedule Routine, Read Routine (OP Routine) 11/17/2021 documented in this encounter Results * US Vein Duplex Lower Extremity Left Limited (11/17/2021) Anatomical Region Laterality Modality Vascular Left Ultrasound us Historical Provider MD KNOTT US PROCEDURES Edited Result - Final documented in this encounter Visit Diagnoses Not on filedocumented in this encounter Care Teams Milk Collector Relationship Specialty Start Date End Date Supriya Hay PA [address] [place] [address] PCP - General Internal Medicine 02/21/20 Helio Carrera MD [address] [place] [address] Referring Physician Obstetrics and Gynecology 09/03/21 documented as of this encounter
--- OUTSIDE RECORDS SUMMARY | 2024-04-01 05:53 | XMS_ITS | Encounter Summary ---
Author Organization [facility] Healthcare Address [address] [place] [address] Care Team Providers Care Advertising Account Executive Name Role Phone Supriya Hay Primary Care Provider +1- [phone] Helio Carrera MD Unavailable [phone] Reason for Referral * MRI/CAT/PET Scan (Routine) - Closed Specialty Diagnoses / Procedures Referred By Melissa swasnon Referred To Contact Radiology Diagnoses Lesion of pancreas Procedures MRI Abdomen MRCP W WO Contrast Rolo Salazar MD [address] [place] [address] Phone: tel: fax: [address] [address] Referral ID Status Reason Start Date Expiration Date Visits Re quested Visits Authorized [id number] Closed 12/11/2021 12/11/2022 1 1 Reason for Visit * Auth/Cert Specialty Diagnoses / Procedures Referred By Melissa swanson Referred To Contact Diagnoses Pancreatic lesion Pancreatic lesion [K86.9] Procedures [place] EDG US EXAM SURGICAL ALTER STOM DUODENUM/JEJUNUM [place] EGD INTRMURAL NEEDLE ASPIR/BIOP ALTERED ANATOMY ESOPHAGOGASTRODUODENOSCOPY ENDOSCOPIC ULTRASOUND SG/OA Referral ID Status Reason Start Date Expiration Date Visits Re quested Visits Authorized [id number] 1 1 Encounter Details Date Type Department Care Team (Latest Contact Info) Description 12/23/2021 6:04 AM CDT - 12/23/2021 7:40 AM CDT Hospital Encounter 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 Gender Identity Female 11/16/2022 3:54 PM [...] Procedure Name Priority Date/Time Associated Diagnosis Comments MRI ABDOMEN MRCP W WO CONTRAST Schedule Routine, Read Routine (OP Routine) 12/23/2021 7:31 AM CDT Lesion of pancreas documented in this encounter Results * MRI Abdomen MRCP [...] this encounter Visit Diagnoses Diagnosis Lesion of pancreas documented in this encounter Administered Medications Inactive Administered Medications - up to 3 most recent administrations Medication Order MAR Action Action Date Dose Rate Site gadoterate meglumine 0.5 mmol/mL injection 18 mL 18 mL, intravenous, Once in imaging, contrast, Starting on 12/23/21 at 0729, For 1 dose Contrast Given 12/23/2021 7:30 AM CDT 18 mL documented in this encounter Orders Medications Ordered That Chintan ht Not Have Been Administered Count Last Ordered Date First Ordered Date gadoterate meglumine 0.5 mmo l/mL injection 18 mL 1 12/23/2021 documented in this encounter Care Teams Advertising Account Executive Relationship Specialty Start Date End Date Supriya Hay PA [address] [place] [address] PCP - General Internal Medicine 02/21/20 Helio Carrera MD [address] [place] [address] Referring Physician Obstetrics and Gynecology 09/03/21 documented as of this encounter
--- OUTSIDE RECORDS SUMMARY | 2024-04-01 05:53 | XMS_ITS | Encounter Summary ---
Author Organization [facility] Address [address] [place] [address] Care Team Providers Care Supervisor Advertising Dispatch Clerks Name Role Phone Supriya Hay Primary Care Provider +1- [phone] Helio Carrera MD Unavailable [phone] Reason for Visit * Reason Onset Date Comments Additional Services Or Orders 12/04/2021 MR I Call Back 12/04/2021 Encounter Details Date Type Department Care Team (Late st Contact Info) Description 12/04/[address] 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 * Telephone Encounter - Cait Pino LPN - 12/09/2021 3:42 PM CDT Spoke with provider and pt and regarding different testing that is needed and insurance approval. It was decided it is in the best interest of the patient to refer to [facility] for assessment and testing. Pt made aware of name and number of Dr. Sow and referral will be sent. * Telephone Encounter - Patti Vogt - 12/09/2021 2:11 PM CDT Call Back Caller???s Concern: Tiesha from Centralized scheduling called and wanted to know what is the correct MRI order for pt, said if the correct one is MRCP W WO contrast it needs to be a corrected order, please advise. Caller???s Call back #: [phone] Does message need to be routed? Yes-Action Needed * Telephone Encounter - Aryan Bright - 12/08/2021 4:25 PM CDT Call Back Caller???s Concern: Spoke with Yanira from Central scheduling was requesting clarification on the patients MRI orders stated that the MRI Abdomen MRCP cannot schedule from that because it has to be without contrast for them to scheduled per guidelines , and that she needs to know if the MRI of pancreas from 12/03/21 is valid and she needs that completed as well or if that was left in error , doesn't need a cb if orders could just be updated. Patient also had mentioned to her a biopsy but im not showing any orders in patients chart Caller???s Call back #: [phone] Does message need to be routed? Yes-Action Needed * Telephone Encounter - Cait Pino LPN - 12/05/2021 8:04 AM CDT New order put in for with and without contrast. Will call and let pt know not to schedule appt until prior auth is approved through insurance * Telephone Encounter - Earline Gonzalez MA - 12/04/2021 11:56 AM CDT Additional Services or Orders Type of Service Requested:Testing Reason for Request (e.g. condition/symptom, date of COVID exposure if applicable): pancreas Details Regarding Additional Services (e.g. type of home health, type of equipment, type of test, etc.): MRI Where will services be performed? (if outside of the practice, facility name, address, phone/fax offacility): [facility] Caller's Callback #: [phone] Additional Comments: patient was advised they could not make the appt for the MRI, because it needsto be written for Abdomen with and without. They need a new order. She states they mentioned nothing about the biopsy Please reach out to patient once order is sent. Does message need to be routed?Yes-Action Needed documented in this encounter Plan of Treatment Not on file documented as of this encounter Visit Diagnoses Not on filedocumented in this encounter Care Teams Supervisor Advertising Dispatch Clerks Relationship Specialty Start Date End Date Supriya Hay PA [address] [place] [id number] PCP - General Internal Medicine 02/21/20 Helio Carrera MD [address] [place] [address] Referring Physician Obstetrics and Gynecology 09/03/21 documented as of this encounter
--- OUTSIDE RECORDS SUMMARY | 2024-04-01 05:53 | XMS_ITS | Encounter Summary ---
Author Organization [facility] Address [address] [place] [address] Care Team Providers Care Chicle Grinder Feeder Name Role Phone Supriya Hay Primary Care Provider +1- [phone] Helio Carrera MD Unavailable [phone]- [phone] Reason for Visit * Reason Comments edema Encounter Details Date Type Department Care Team (Late st Contact Info) Description 01/22/2022 2:00 PM CDT Office Visit [facility] Family Medicine [address] [place] [address] Supriya Hay PA [address] [place] [address] Edema, lower extremity (Primary Dx); Pancreatic lesion; BMI 34.0-34.9,adult; Obesity (BMI 30-39.9) Social History [...] PM CDT 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 Gender Identity Female 11/16/2022 3:54 PM CDT Sexual Orientation Straight 11/16/2022 3: 54 PM CDT documented as of this encounter Last Filed Vital Signs Vital Sign Reading Time Taken Comments Blood Pressure 118/80 01/22/2022 2:14 PM CDT Pulse 69 01/22/2022 2:14 PM CDT Temperature 36.9 ??C (98.5 ??F) 01/22/2022 2:14 PM CD T Respiratory Rate - - Oxygen Saturation 98% 01/22/2022 2:14 PM CDT Inhaled Oxygen Concentration - - Weight 84.9 kg (187 lb 3.2 oz) 01/22/2022 2:14 P M CDT Height 157.5 cm (5' 2 ) 01/22/2022 2:14 PM CDT Body Mass Index 34.24 01/22/2022 2:14 PM CDT documented in this encounter Progress Notes * Supriya Hay PA - 01/22/2022 2:00 PM CDT Images from the original note were not included. Subjective/Objective Patient ID: Aziza Lockhart is a 41 y.o. female. Chief Complaint edema HPI Patient presents to followup chronic concerns. Mild nausea the last few weeks. RLQ pain for years. Last 2 weeks more consistent daily pain. Bowels alternate between solid and runny. No blood. Edema is better Using support hose. Diuretic -- I could do it as I had to go too much. Doing well -- Didn't do the ECHO as feeling better and they didn't call Saw Dr. 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 IMPRESSION EGD: - Normal esophagus. - Normal stomach. [...] to primary care physician as previously scheduled. Review of Systems See HPI Vitals: 01/22/22 1414 BP: 118/80 BP Location: Left arm Patient Position: Sitting Pulse: 69 Temp: 36.9 ??C (98.5 ??F) TempSrc: Oral SpO2: 98% Weight: 84.9 kg (187 lb 3.2 oz) Height: 157.5 cm (5' 2 ) [...] this visit: Edema, lower extremity (R60.0) (Primary) Pancreatic lesion (K86.9) Assessment & Plan: Workup is negative. Suspect benign lesion by imaging and EGD BMI 34.0-34.9,adult (Z68.34) Assessment & Plan: Obesity is unchanged. Discussed the patient's BMI. The BMI is above average. BMI management plan is completed. BMI Follow-up includes: nutrition counseling, exercise counseling and education provided. Obesity (BMI 30-39.9) (E66.9) Assessment & Plan: Obesity is unchanged. Discussed the patient's BMI. The BMI is above average. BMI management plan is completed. BMI Follow-up includes: nutrition counseling, exercise counseling and education provided. *This note is dictated using Mmodal medical voice recognition software, variances in spelling and vocabulary are possible and unintentional.* Supriya Hay PA-C ING SUPERVISOR documented in this encounter Miscellaneous Notes * Assessment & Plan Note - Supriya Hay PA - 02/14/2022 3:12 PM WELDING SUPERVISOR Associated Problem(s): Pancreatic lesion Workup is negative. Suspect benign lesion by imaging and EGD ING SUPERVISOR * Assessment & Plan Note - Mitchell Estrella MA - 01/22/2022 2:15 PM CDT Associated Problem(s): BMI 34.0-34.9,adult (Resolved 01/13/2023) Obesity is unchanged. Discussed the patient's BMI. The BMI is above average. BMI management plan is completed. BMI Follow-up includes: nutrition counseling, exercise counseling and education provided. * Assessment & Plan Note - Mitchell Estrella MA - 01/22/2022 2:15 PM CDT Associated Problem(s): Obesity (BMI 30-39.9) (Resolved 01/13/2023) Obesity is unchanged. Discussed the patient's BMI. The BMI is above average. BMI management plan is completed. BMI Follow-up includes: nutrition counseling, exercise counseling and education provided. documented in this encounter Plan of Treatment Not on file documented as of this encounter Visit Diagnoses Diagnosis Edema, lower extremity- Primary Pancreatic lesion BMI 34.0-34.9,adult Obesity (BMI 30-39.9) documented in this encounter Care Teams Chicle Grinder Feeder Relationship Specialty Start Date End Date Supriya Hay PA [address] [facility] [address] [place] [address] PCP - General Internal Medicine 02/21/20 Helio Carrera MD [address] [address] Referring Physician Obstetrics and Gynecology 09/03/21 documented as of this encounter
--- OUTSIDE RECORDS SUMMARY | 2024-04-01 05:53 | XMS_ITS | Encounter Summary ---
Author Organization [facility] Address [address] [place] [address] Care Team Providers Care Java Web Developer Name Role Phone Supriya Hay Primary Care Provider +1- [phone] Helio Carrera MD Unavailable [phone]- [phone] Encounter Details Date Type Department Care Team (Late st Contact Info) Description 03/12/2021 Orders Only [facility] Health Information Management [address] [place] [address] Scanning, Provider Social History Tobacco Use Types [...] should administer the PHQ-9) 0 12/03/2021 Comments Unknown Sex and Gender Information Value Date Recorded Sex Assigned at Female 11/16/2022 3:54 PM CDT 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 Gender Identity Female 11/16/2022 3:54 PM CDT Sexual Orientation Straight 11/16/2022 3: 54 PM CDT documented as of this encounter Plan of Treatment Not on file documented as of this encounter Procedures Procedure Name Priority Date/Time Associated Diagnosis Comments SCAN - RADIOLOGY/IMAGING 03/12/2021 documented in this encounter Results * SCAN - RADIOLOGY/IMAGING (03/12/2021) Anatomical Region Laterality Modality Other us Provider Scanning Final Result documented in this encounter Visit Diagnoses Not on filedocumented in this encounter Care Teams Java Web Developer Relationship Specialty Start Date End Date Supriya Hay PA [address] [place] [address] PCP - General Internal Medicine 02/21/20 Helio Carrera MD [address] [place] [address] Referring Physician Obstetrics and Gynecology 09/03/21 documented as of this encounter
--- OUTSIDE RECORDS SUMMARY | 2024-04-01 05:53 | XMS_ITS | Encounter Summary ---
Author Organization [facility] Address [address] [place] [address] Care Team Providers Care Adjunct Psychology Faculty Member Name Role Phone Supriya Hay Primary Care Provider +1- [phone] Helio Carrera MD Unavailable +1- [phone] Encounter Details Date Type Department Care Team (Late st Contact Info) Description 12/09/2021 Orders Only [facility] Family Medicine [address] [place] [address] Supriya Hay PA [address] [place] [address] Pancreatic lesion (Primary Dx) Social History Tobacco [...] PM CDT Legal Sex 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 Gender Identity Female 11/16/2022 3:54 PM CDT Sexual Orientation Straight 11/16/2022 3: 54 PM CDT documented as of this encounter Plan of Treatment Not on file documented as of this encounter Visit Diagnoses Diagnosis Pancreatic lesion- Primary documented in this encounter Care Teams Adjunct Psychology Faculty Member Relationship Specialty Start Date End Date Supriya Hay PA [address] [facility] [address] [place] [address] PCP - General Internal Medicine 02/21/20 Helio Carrera MD [address] [facility] [address] [place] [address] Referring Physician Obstetrics and Gynecology 09/03/21 documented as of this encounter
--- OUTSIDE RECORDS SUMMARY | 2024-04-01 05:53 | XMS_ITS | Encounter Summary ---
Author Organization [facility] Address [address] [place] [address] Care Team Providers Care Golf Course Manager Name Role Phone Supriya Hay Primary Care Provider +1- [phone] Helio Carrera MD Unavailable +1- [phone] Encounter Details Date Type Department Care Team (Late st Contact Info) Description 12/09/2021 Orders Only [facility] Family Medicine [address] [place] [address] Supriya Hay PA [address] [place] [address] Social History Tobacco Use Types [...] PM CDT Legal Sex Female 12:02 AM 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 Gender Identity Female 11/16/2022 3:54 PM CDT Sexual Orientation Straight 11/16/2022 3: 54 PM CDT documented as of this encounter Plan of Treatment Not on file documented as of this encounter Visit Diagnoses Not on filedocumented in this encounter Care Teams Golf Course Manager Relationship Specialty Start Date End Date Supriya Hay PA [address] [facility] [address] [place] [address] PCP - General Internal Medicine 02/21/20 Helio Carrera MD [address] [facility] [address] [place] [address] Referring Physician Obstetrics and Gynecology 09/03/21 documented as of this encounter
--- OUTSIDE RECORDS SUMMARY | 2024-04-01 05:53 | XMS_ITS | Encounter Summary ---
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 Gender Identity Female 11/16/2022 3:54 PM CDT Sexual Orientation Straight 11/16/2022 3: 54 PM CDT documented as of this encounter Plan of Treatment Not on file documented as of this encounter Procedures Procedure Name Priority Date/Time Associated Diagnosis Comments SCAN - RADIOLOGY/IMAGING 11/17/2021 SCAN - LABS 11/17/2021 documented in this encounter Results * SCAN - LABS (11/17/2021) us Provider Scanning Final Result * SCAN - RADIOLOGY/IMAGING (11/17/2021) Anatomical Region Laterality Modality Other us Provider Scanning Final Result documented in this encounter Visit Diagnoses Not on filedocumented in this encounter Care Teams Snowmobile Mechanic Relationship Specialty Start Date End Date Supriya Hay PA [address] [place] [address] PCP - General Internal Medicine 02/21/20 Helio Carrera MD [address] [place] [address] Referring Physician Obstetrics and Gynecology 09/03/21 documented as of this encounter
--- OUTSIDE RECORDS SUMMARY | 2024-04-01 05:53 | XMS_ITS | Encounter Summary ---
Author Organization [facility] Address [address] [place] [address] Care Team Providers Care Cloth Dye Range Operator Name Role Phone Supriya Hay Primary Care Provider +1- [phone] Helio Carrera MD Unavailable +[phone] Encounter Details Date Type Department Care Team (Late st Contact Info) Description 12/09/[address] 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
--- OUTSIDE RECORDS SUMMARY | 2024-04-01 05:53 | XMS_ITS | Encounter Summary ---
Author Organization [facility] Healthcare Address [address] [place] [address] Care Team Providers Care Self Sealing Fuel Tank Repairer Name Role Phone Supriya Hay Primary Care Provider +1- [phone] Helio Carrera MD Unavailable +1- [phone] Reason for Visit * Auth/Cert Specialty Diagnoses / Procedures Referred By Melissa swanson Referred To Contact Diagnoses Pancreatic lesion Pancreatic lesion [K86.9] Procedures DE EDG US EXAM SURGICAL ALTER STOM DUODENUM/JEJUNUM DE EGD INTRMURAL NEEDLE ASPIR/BIOP ALTERED ANATOMY ESOPHAGOGASTRODUODENOSCOPY ENDOSCOPIC ULTRASOUND SG/OA Referral ID Status Reason Start Date Expiration Date Visits Re quested Visits Authorized [id number] 1 1 Encounter Details Date Type Department Care Team (Late st Contact Info) Description 12/23/2021 10:14 AM CDT Anesthesia Event [facility] [place] [address] [facility] [address] [place] [address] Andreina Cabrera MD [address] [place] [address] Anesthesia Record Procedure Summary Procedure Name Responsible Anesthesiologist Anesthesia Start Time Anesthesia Stop Time ESOPHAGOGASTRODUODENOSCOPY ENDOSCOPIC ULTRASOUND SG/OA (Left) Andreina Cabrera MD 12/23/21 1014 12/23/21 1044 Events Date Time Event Comment 12/23/2021 0814 1014 An Start 1017 In Room 1017 An Start Data 1018 An Data Art 1021 Start Supplemental O2 1022 Patient Positioned Laterally 1022 Bite Block Placed 1024 An Induction The patient was reevaluated immediately before moderate or deep sedation use and before anesthesia induction. 1025 Anesthesia Ready 1027 Proc Start 1035 Proc Fin 1039 Out of Room 1044 an stop data 1044 Handoff to RN I completed my handoff to the receiving nurse during which we: 1. Patient identified 2. Responsible provider identified 3. Pertinent medical history reviewed 4. Procedure type and surgical course discussed 5. Intraoperative anesthetic management and any significant issues discussed 6. Expectations and concerns for postop period discussed 7. Questions solicited from receiving nurse 8. Patient disposition at the time of handoff: PACU 1044 An Stop Meds Name Total propofol 150 mg propofol 236.19 mg sodium chloride 0.9% infusion 0 mL * Agents Name O2% N2O O2 N2O Air Sevoflurane Inspired Sevoflurane * Blood No blood administrations on file. Lines, Drains, and Airways No LDAs on file. 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 Gender Identity Female 11/16/2022 3:54 PM CDT Sexual Orientation Straight 11/16/2022 3: 54 PM CDT documented as of this encounter OR Notes * Anesthesia Postprocedure Evaluation - Andreina Cabrera MD - 12/23/2021 10:50 AM CDT Patient: Aziza Lockhart Procedure Summary Date: 12/23/21 Room / Location: [facility] ENDOSCOPY ROOM 2 / [facility] ENDOSCOPY Anesthesia Start: 1014 Anesthesia Stop: Procedure: ESOPHAGOGASTRODUODENOSCOPY ENDOSCOPIC ULTRASOUND SG/OA (Left) Diagnosis: Pancreatic lesion (Pancreatic lesion [K86.9]) Providers: Rolo Salazar MD Responsible Provider: Andreina Cabrera MD Anesthesia Type: MAC ASA Status: 2 Anesthesia Type: MAC Last vitals BP 98/55 (BP Location: Left arm, Patient Position: Lying) Pulse 90 Temp 36.2 ??C (97.2 ??F) (Temporal) Resp 16 SpO2 100% Anesthesia Post Evaluation Patient location during evaluation: PACU Patient participation: complete - patient participated Level of consciousness: fully awake Pain score: 0 Pain management: adequate Airway patency: adequate Evidence of recall: no Cardiovascular status: acceptable Respiratory status: acceptable Hydration status: acceptable Pt is: normothermic Nausea/Vomiting status: none No notable events documented. * Anesthesia Preprocedure Evaluation - Andreina Cabrera MD - 12/23/2021 8:14 AM CDT Images from the original note were not included. Anesthesia Evaluation Aziza Lockhart is a 41 y.o. female Procedure(s): ESOPHAGOGASTRODUODENOSCOPY ENDOSCOPIC ULTRASOUND SG/OA Pre-Op Diagnosis Codes: * Pancreatic lesion [K86.9] Patient Active Problem List Diagnosis ??? Diabetes mellitus screening ??? Lipid screening ??? Other fatigue ??? Migraine without aura and without status migrainosus, not intractable ??? Chronic midline low back pain without sciatica ??? Obesity (BMI 30-39.9) ??? BMI 34.0-34.9,adult ??? Left leg pain ??? Mixed hyperlipidemia ??? Chronic pain of left knee ??? Edema, lower extremity ??? Pancreatic lesion Past Medical History: Diagnosis Date ??? Anemia ??? Lumbar pain with radiation down left leg 05/09/2019 Past Surgical History: Procedure Laterality Date ??? BLADDER SURGERY 2018 ??? CHOLECYSTECTOMY 2017 ??? HERNIA MESH REMOVAL 2016 ??? HERNIA REPAIR 2017 ??? TONSILLECTOMY 2006 OB History No obstetric history on file. Allergies Allergen Reactions ??? Clindamycin Shortness of breath ??? Sulfa (Sulfonamide Antibiotics) Itching Taking? Last Dose Start Date End Date Provider hydroCHLOROthiazide (HYDRODIURIL) 25 mg tablet Past Week 12/03/21 -- Supryia Hay PA Take 1 tablet (25 mg total) by mouth daily levonorgestreL (MIRENA) IUD -- -- -- Provider, MD Sonal Current Facility-Administered Medications: ??? ondansetron (ZOFRAN) injection 4 mg, 4 mg, intravenous, Q6H PRN ??? sodium chloride 0.9% flush 0.5-20 mL, 0.5-20 mL, intra-catheter, PRN ??? sodium chloride 0.9% infusion, 30 mL/hr, intravenous, Continuous Social History Tobacco Use Smoking Status Never Smokeless Tobacco Never Alcohol Use: Not At Risk ??? Frequency of Alcohol Consumption: Never ??? Average Number of Drinks: Patient does not drink ??? Frequency of Binge Drinking: Never Substance and Sexual Activity Drug Use Never Family History Problem Relation Age of Onset ??? Diabetes Mother ??? Thyroid disease Mother ??? Hyperlipidemia Mother ??? Arthritis Mother ??? Hypertension Father ??? Heart disease Father ??? Asthma Son ??? Glaucoma Maternal Grandmother ??? Heart disease Maternal Grandmother ??? Diabetes Maternal Grandmother ??? Cataracts Maternal Grandmother ??? Prostate cancer Maternal Grandfather ??? Arthritis Paternal Grandmother ??? Glaucoma Paternal Grandmother ??? Prostate cancer Paternal Grandfather Vitals: 12/23/21 0811 BP: 116/82 Pulse: 71 Resp: 11 Temp: 36.4 ??C (97.5 ??F) SpO2: 99% PT: No results found for requested labs within last 720 hours. INR: No results found for requested labs within last 720 hours. APTT: No results found for requested labs within last 720 hours. Hgb A1C: No results found for requested labs within last 720 hours. CBC RBC: No results found for requested labs within last 720 hours. RDW: No results found for requested labs within last 720 hours. MCHC: No results found for requested labs within last 720 hours. MCH: No results found for requested labs within last 720 hours. MCV: No results found for requested labs within last 720 hours. Hct: No results found for requested labs within last 720 hours. Hgb: No results found for requested labs within last 720 hours. WBC: No results found for requested labs within last 720 hours. MPV: No results found for requested labs within last 720 hours. Platelets: No results found for requested labs within last 720 hours. RDW CV: No results found for requested labs within last 720 hours. RDW Sd: No results found for requested labs within last 720 hours. BMP Glucose: No results found for requested labs within last 720 hours. Calcium: No results found for requested labs within last 720 hours. Sodium: No results found for requested labs within last 720 hours. Potassium: No results found for requested labs within last 720 hours. CO2: No results found for requested labs within last 720 hours. Chloride: No results found for requested labs within last 720 hours. BUN: No results found for requested labs within last 720 hours. Creatinine: No results found for requested labs within last 720 hours. DOS Physical Exam Medical history, medications, and allergies reviewed. Attestation: With today's edits, I endorse the findings of the procedural assessment dated: 12/23/2021. Airway Exam: Mallampati: II Cervical ROM: FROM TM distance: >4 Cardiovascular Exam: Rate: regular Rhythm: regular Negative for Murmur Pulmonary Exam: LCTA, bilat EENT Exam: trachea midline Dental Exam: Appears intact Current state: Patient's current state is cooperative. Anesthesia Plan ASA 2 My patient is approved for the Anesthesia Controlled Medication protocol when under care of a CHIP APPLYING MACHINE TENDER Planned anesthesia: MAC Informed Consent: Discussed plan with CHIP APPLYING MACHINE TENDER. Anesthesia plan and risks discussed with patient. Consent and Attending signature: I and/or my designee have discussed the anesthesia plan, benefits, possible alternatives, parental presence at time of induction (if indicated), and clinically relevant risks that may include dental injury, unintentional awareness, and/or other complications. The patient and/or parent/legal guardian understand, and agree to proceed. All questions answered. documented in this encounter Plan of Treatment Not on file documented as of this encounter Visit Diagnoses Not on filedocumented in this encounter Administered Medications Inactive Administered Medications - up to 3 most recent administrations Medication Order MAR Action Action Date Dose Rate Site propofoL (DIPRIVAN) 10 mg/mL IV intravenous, Continuous PRN, Starting on Wed12/23/21 at 1024, Anesthesia Intra-op Rate/Dose Change 12/23/2021 10:28 AM CDT 140 mcg/kg/min 72.408 mL/hr New Bag 12/23/2021 10:24 AM CDT 125 mcg/kg/min 64.65 mL /hr propofoL (DIPRIVAN) 10 mg/mL IV intravenous, As needed, Starting on Wed12/23/21 at 1024, Anesthesia Intra-op Given 12/23/2021 10:30 AM CDT 50 mg Given 12/23/2021 10:25 AM CDT 50 mg Given 12/23/2021 10:24 AM CDT 50 mg sodium chloride 0.9% infusion 30 mL/hr, intravenous, Continuous, Starting on Wed12/23/21 at 0845, Pre-Procedure (GI) New Bag 12/23/2021 10:14 AM CDT documented in this encounter Care Teams Self Sealing Fuel Tank Repairer Relationship Specialty Start Date End Date Supryia Hay PA [address] [place] [address] PCP - General Internal Medicine 02/21/20 Helio Carrera MD [address] [place] [address] Referring Physician Obstetrics and Gynecology 09/03/21 documented as of this encounter
--- OUTSIDE RECORDS SUMMARY | 2024-04-01 05:53 | XMS_ITS | Encounter Summary ---
Author Organization [facility] Address [address] [place] [address] Care Team Providers Care Daily Release And Dupe Printer Name Role Phone Supriya Hay Primary Care Provider [phone]- [phone] Helio Carrera MD Unavailable [phone] Reason for Visit * Reason Onset Date Comments Leg Swelling 11/18/2021 Call Back 11/18/2021 Encounter Details Date Type Department Care Team (Late st Contact Info) Description 11/18/2021 Telephone [facility] Family Medicine [address] [place] [address] Deloris Franco MA Leg Swelling; Call Back Social History Tobacco Use Types [...] PM CDT 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 Call transferred to office and call taken by Deyanira. Caller???s Call back #: [phone] Does message need to be routed? No * Telephone Encounter - Deloris Franco MA - 11/18/2021 8:26 AM CDT Office received venous doppler that was not ordered in office. I called patient to verify it was done, to which she reports going to [place] [facility] on 11/16/21 at 9pm. Patient was experiencing pain and swelling of BL LE. When asked if patient is feeling better, she c/o pain on entire left side as well as the former swelling and pain. Patient needs appointment scheduled per LIME PULLER Supriya Hay. documented in this encounter Plan of Treatment Not on file documented as of this encounter Visit Diagnoses Not on filedocumented in this encounter Care Teams Daily Release And Dupe Printer Relationship Specialty Start Date End Date Supriya Hay PA [address] [place] [address] PCP - General Internal Medicine 02/21/20 Helio Crarera MD [address] [place] [address] Referring Physician Obstetrics and Gynecology 09/03/21 documented as of this encounter
--- OUTSIDE RECORDS SUMMARY | 2024-04-01 05:53 | XMS_ITS | Encounter Summary ---
Author Organization [facility] Healthcare Address [address] [place] [address] Care Team Providers Care Gaming Table Operator Name Role Phone Supriya Hay Primary Care Provider [phone]- [phone] Reason for Referral * Diagnostic Imaging (Routine) - Closed Specialty Diagnoses / Procedures Referred By Melissa swanson Referred To Contact Diagnoses Left lumbar radiculopathy Procedures XR Spine Lumbar W Bending 6 or More Views Jyoti Padilla NP [address] [place] [address] [place] [address] Phone: tel: fax: [address] [address] Referral ID Status Reason Start Date Expiration Date Visits Re quested Visits Authorized [id number] Closed 06/17/2020 07/17/2021 1 1 Encounter Details Date Type Department Care Team (Latest Contact Info) Description 06/20/2020 1:33 PM CDT Hospital Encounter [facility] Jyoti Padilla NP [address] [facility] [address] [place] [address] [place] [id number] Left lumbar radiculopathy Social History Tobacco [...] PM CDT 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 Do not exceed 30 mg in 24 hours. 9 tablet 1 02/28/2020 1 levonorgestreL (MIRENA) IUD 1 each by intrauterine route once 3 meloxicam (MOBIC) 7.5 mg tablet Take 1 tablet (7.5 mg total) by mouth daily 30 tablet 1 05/23/2020 2 documented as of this encounter Plan of Treatment Not on file documented as of this encounter Procedures Procedure Name Priority Date/Time Associated Diagnosis Comments XR SPINE LUMBAR W BENDING 6 OR MORE VIEWS Schedule Routine, Read Routine (OP Routine) 06/20/2020 1:35 PM CDT Left lumbar radiculopathy documented in this encounter Results * XR Spine Lumbar W Bending 6 or More Views (06/20/2020 1:35 PM CDT) Anatomical Region Laterality Modality Spine N/A Radiographic Ladan ging 06/20/2020 3:11 PM CDT Narrative 06/20/2020 3:12 PM CDT Patient Name: AZIZA LOCKHART ?Ordering Dr: Jyoti Padilla ?? D.O.B: 1980 ? Exam Date: 06/20/20 ?? 1335 ?? Age: 40 ?Sex: Female ? MR#: [id number] ?? Loc: ? RADIOLOGY REPORT ?? Order #[id number] ?? Radiology ? Lumbar Spine Bending 6 [...] ? FINDINGS: ?There are 5 lumbar type [id number] vertebral bodies. ??IUD is in place ?? [...] 3:12 PM ?? T: ? Report ID: [id number] ?? Reading Location: ??[id number] ? REPORT ELECTRONICALLY SIGNED IN OTHER VENDOR SYSTEM ?? Resulting Agency Comment O Procedure Note Tejinder Lang MD - 06/20/2020 Patient Name: AZIZA LOCKHART Dr: Jyoti Padilla D.O.B: 1980 Exam Date: 06/20/20 1335 Age: 40 Sex: Female MR#: [id number] Loc: RADIOLOGY REPORT Order #[id number] Radiology Lumbar Spine Bending 6 Vw Min Signed EXAM DESCRIPTION: Lumbar Spine Bending 6 Vw Min REASON FOR STUDY: LBP PAIN RADIATES DOWN LT LEG SINCE 05/09/20, NRI TECHNIQUE: AP, lateral, lateral flexion, lateral extension, rightposterior oblique, left posterior oblique radiographs of the lumbar spine wereobtained. COMPARISON: None available FINDINGS: There are 5 lumbar type [id number] vertebral bodies. IUD is inplace over the [...] Tejinder Lang M.D. AT T: Report ID: [id number] Reading Location: [place] [address] REPORT ELECTRONICALLY SIGNED IN OTHER VENDOR SYSTEM Jyoti Padilla SALES DEVELOPMENT MANAGER IMG XR PROCEDURES Final Res ult documented in this encounter Visit Diagnoses Diagnosis Left lumbar radiculopathy Thoracic or lumbosacral neuritis or radiculitis, unspecified documented in this encounter Care Teams Gaming Table Operator Relationship Specialty Start Date End Date Supriya Hay PA [address] [facility] [address] [place] [address] PCP - General Internal Medicine 02/21/20 documented as of this encounter
--- OUTSIDE RECORDS SUMMARY | 2024-04-01 05:53 | XMS_ITS | Encounter Summary ---
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 Gender Identity Female 11/16/2022 3:54 PM CDT Sexual Orientation Straight 11/16/2022 3: 54 PM CDT documented as of this encounter Plan of Treatment Not on file documented as of this encounter Procedures Procedure Name Priority Date/Time Associated Diagnosis Comments SCAN - RADIOLOGY/IMAGING 12/01/2021 documented in this encounter Results * SCAN - RADIOLOGY/IMAGING (12/01/2021) Anatomical Region Laterality Modality Other us Provider Scanning Edited Result - Final documented in this encounter Visit Diagnoses Not on filedocumented in this encounter Care Teams Occupational Physician Relationship Specialty Start Date End Date Supriya Hay PA [address] [place] [address] PCP - General Internal Medicine 02/21/20 Helio Carrera MD [address] [place] [address] Referring Physician Obstetrics and Gynecology 09/03/21 documented as of this encounter
--- OUTSIDE RECORDS SUMMARY | 2024-04-01 05:53 | XMS_ITS | Encounter Summary ---
Author Organization [facility] Healthcare Address [address] [place] [address] Care Team Providers Care College Or University Faculty Member Name Role Phone Supriya Hay Primary Care Provider [phone]- [phone] Helio Carrera MD Unavailable +1- [phone] Reason for Referral * Diagnostic Imaging (Routine) - Closed Specialty Diagnoses / Procedures Referred By Contac t Referred To Contact Diagnoses Screening mammogram, encounter for Procedures Screening Mammogram Bilateral W Sree Screening Mammogram, Self Referral ID Status Reason Start Date Expiration Date Visits Re quested Visits Authorized [id number] Closed 06/04/2021 07/04/2022 1 1 Reason for Visit * Diagnostic Imaging (Routine) - Closed Specialty Diagnoses / Procedures Referred By Contac t Referred To Contact Diagnoses Screening mammogram, encounter for Procedures Screening Mammogram Bilateral W Sree Screening Mammogram, Self Referral ID Status Reason Start Date Expiration Date Visits Re quested Visits Authorized [id number] Closed 06/04/2021 07/04/2022 1 1 Encounter Details Date Type Department Care Team (Latest Contact Info) Description 09/03/2021 3:15 PM CDT - 09/03/2021 11:59 PM CDT Hospital Encounter [facility] Office [address] [facility] [address] [place] [address] [address] [place], [place] [id number] Screening mammogram, encounter for Discharge Disposition: Discharge [...] PM CDT 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 ATLAS category (overall): 0 - Incomplete: Needs Additional Imaging Evaluation Small indeterminate masses in both breasts, possibly representing intramammary lymph nodes. Further evaluation with bilateral breast sonogram is recommended. ?? The patient has been or will be contacted. ?? Narrative 09/04/2021 8:27 AM CDT Screening Mammogram Bilateral W Sree: 09/03/21 The study was acquired using full field digital technology and interpreted from soft copy. 2D digital mammographic views, as well as 3D digital tomosynthesis were performed in the CC and MLO projections. CLINICAL: ??Screening mammogram, encounter for. ??No relevant medical history has been documented for this patient. ??No known family history of breast cancer. COMPARISON: ??Baseline Screening Mammography. No prior mammography is available for comparison. BREAST TISSUE: The breasts have scattered areas of fibroglandular density. FINDINGS: There is a small oval mass with circumscribed margins at approximately the 8 o'clock position of the right breast 4-6 cm from the nipple, and measuring 4 mm. There is a similar appearing mass in the upper outer left breast at approximately the 2-3 o'clock position 8-11 cm from the nipple, measuring 7 mm. It is possible they represent intramammary lymph nodes. There is no other suspicious finding in either breast on mammogram. ?? us Self Screening Mammogram IMG MAMMO PROCEDURES Fi nal Result documented in this encounter Visit Diagnoses Diagnosis Screening mammogram, encounter for documented in this encounter Care Teams College Or University Faculty Member Relationship Specialty Start Date End Date Supriya Hay PA [address] [place] [address] PCP - General Internal Medicine 02/21/20 Helio Carrera MD [address] [place] [address] Referring Physician Obstetrics and Gynecology 09/03/21 documented as of this encounter
--- OUTSIDE RECORDS SUMMARY | 2024-04-01 05:53 | XMS_ITS | Encounter Summary ---
Author Organization [facility] Address [address] [place] [address] Care Team Providers Care Transit Planning Director Name Role Phone Supriya Hay Primary Care Provider +1- [phone] Helio Carrera MD Unavailable +1- [phone] Reason for Visit * Reason Onset Date Comments Call Back 11/20/2021 Encounter Details Date Type Department Care Team (Late st Contact Info) Description 11/20/2021 Telephone [facility] Family Medicine [address] [place] [address] Supriya Hay PA [address] [place] [address] Call Back Social History Tobacco Use Types [...] PM CDT 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 No documented in this encounter Plan of Treatment Not on file documented as of this encounter Visit Diagnoses Not on filedocumented in this encounter Care Teams Transit Planning Director Relationship Specialty Start Date End Date Supriya aHy PA [address] [place] [address] PCP - General Internal Medicine 02/21/20 Helio Carrera MD [address] [place] [address] Referring Physician Obstetrics and Gynecology 09/03/21 documented as of this encounter
--- OUTSIDE RECORDS SUMMARY | 2024-04-01 05:54 | XMS_ITS | Encounter Summary ---
Author Organization [facility] Healthcare Address [address] [place] [address] Care Team Providers Care Instrument Repair Technician Name Role Phone Unavailable Primary Care Provider Unavailabl e Encounter Details Date Type Department Care Team (Latest Contact Info) Description 01/17/2016 10:21 PM CDT - 01/18/2016 2:16 AM CDT Hospital Encounter [facility] Enrico Marc, DO [address] [place] [address] Abdominal pain; Nausea with vomiting Social History Tobacco Use Types Packs/Day Years Used Date Smoking Tobacco: Never Assessed Comments Unknown Sex and Gender Information Value Date Recorded Sex Assigned at Female 11/16/2022 3:54 PM CDT 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 Gender Identity Female 11/16/2022 3:54 PM CDT Sexual Orientation Straight 11/16/2022 3: 54 PM CDT documented as of this encounter Last Filed Vital Signs Vital Sign Reading Time Taken Comments Blood Pressure 106/68 01/18/2016 1:26 AM CDT Pulse 70 01/18/2016 1:26 AM CDT Temperature 37 ??C (98.6 ??F) 01/18/2016 1:26 AM CDT Respiratory Rate - - Oxygen Saturation 99% 01/18/2016 1:26 AM CDT Inhaled Oxygen Concentration - - Weight 61.2 kg (135 lb) 01/18/2016 1:26 AM CDT Height 157.5 cm (5' 2 ) 01/18/2016 1:26 AM CDT Body Mass Index 24.69 01/18/2016 1:26 AM CDT documented in this encounter Plan of Treatment Not on file documented as of this encounter Procedures Procedure Name Priority Date/Time Associated Diagnosis Comments CBC WITH AUTO DIFFERENTIAL Routine 01/17/2016 10:41 PM CDT LIPASE Routine 01/17/2016 10:41 PM CDT COMPREHENSIVE METABOLIC PANEL Routine 01/17/2016 10:41 PM CDT URINALYSIS Routine 01/17/2016 10:35 PM CDT documented in this encounter Results * Lipase (01/17/2016 10:41 PM CDT) Lipase 19 13 - 60 U/L 01/17/2016 11:06 PM CDT [facility] 01/17/2016 10:4 1 PM CDT 01/17/2016 10:44 PM CDT Rip Palomino LAB BLOOD ORDERABLES Kristi l Result [facility] * Comprehensive metabolic panel (01/17/2016 10:41 PM CDT) Sodium 136 135 - 145 mmol/L 01/17/2016 11:06 PM T [facility] Potassium 3.3 3.3 - 5.1 mmol/L 01/17/2016 11:06 PM T [facility] Chloride 99 96 - 108 mmol/L 01/17/2016 11:06 PM T [facility] Carbon Dioxide 24 22 - 32 mmol/L 01/17/2016 11:06 PM T [facility] Anion Gap 13 7 - 16 01/17/2016 11:06 PM T [facility] Glucose 87 70 - 100 mg/dL 01/17/2016 11:06 PM T [facility] BUN 8 6 - 20 mg/dL 01/17/2016 11:06 PM T [facility] Creatinine 0.7 0.5 - 1.1 mg/dL Comment: NOTE: Estimated GFR (Cockroft-Gault) will NOT be calculated unless patient Height and Weight were entered. Also, Kidney Disease Stage (GFR) and Estimated GFR (Cockroft-Gault) will NOT be calculated if Creatinine result is <0.2. Kidney Disease Stage > 90 mL/MIN Comment: NOTE; ??The GFR is an estimated value using the creatinine, sex, age, and race of the patient. THE Estimated Kidney Disease GFR is validated for AGES 18-70 YEARS STAGE ?mL/Min ?DESCRIPTION ??1 ?90 mL/min or more ?Normal or elevated GFR ??2 ? 60-89 mL/min ?Mildly decreased GFR ??3 ? 30-59 mL/min ?Moderately decreased GFR ??4 ? 15-29 mL/min ?Severely decreased GFR ??5 ? <15 mL/min ? Kidney failure or on dialysis @ Est GFR (Cockcroft-G) 98 ml/MIN Comment: Estimated GFR(Cockroft-Gault)is used to calculate patient medication dosage Calcium 8.8 8.6 - 10.0 mg/dL Total Protein 7.1 6.4 - 8.3 g/dL Albumin 4.4 3.5 - 5.2 g/dL Globulin 2.7 2.3 - 3.5 gm/dL 01/17/2016 11:06 PM CDT [facility] Albumin/Globulin Ratio 1.6 1.1 - 1.8 01/17/2016 11:06 PM CDT [facility] Total Bilirubin 0.4 0.0 - 1.2 mg/dL 01/17/2016 11:06 PM CDT [facility] AST 13 0 - 32 U/L 01/17/2016 11:06 PM CDT [facility] ALT 13 0 - 33 U/L 01/17/2016 11:06 PM CDT [facility] Alkaline Phosphatase 91 35 - 104 U/L 01/17/2016 11:06 PM T [facility] 01/17/2016 10:4 1 PM CDT 01/17/2016 10:44 PM CDT Rip Palomino LAB BLOOD ORDERABLES Kristi l Result [facility] * (ABNORMAL) CBC with auto differential (01/17/2016 10:41 PM CDT) WBC 6.1 4.6 - 10.2 x10 3/ul 01/17/2016 10:49 PM CDT [facility] RBC 4.36 3.76 - 4.80 x10 6/ul 01/17/2016 10:49 PM T [facility] Hemoglobin 13.1 11.0 - 15.0 g/dl 01/17/2016 10:49 PM CDT [facility] Hct 38.7 33.0 - 43.0 % 01/17/2016 10:49 PM CDT [facility] MCV 88.8 80.0 - 97.0 fl 01/17/2016 10:49 PM CDT [facility] MCH 30.0 27.0 - 31.2 pg 01/17/2016 10:49 PM CDT [facility] MCHC 33.9 31.8 - 35.4 g/dl 01/17/2016 10:49 PM CDT [facility] RDW 13.5 11.6 - 14.8 % Plt Count 265 124 - 400 x10 3/ul MPV 10.9(H) 7.4 - 10.4 fl Neut % 60.6 37.0 - 85.0 % Immature Gran % 0.2 0.0 - 3.0 % Lymph % 31.8 5.0 - 45.0 % [place] % 6.1 3.0 - 15.0 % Eos % 1.0 0.0 - 7.0 % Baso % 0.3 0.0 - 2.0 % Absolute Neuts (auto) 3.7 1.7 - 8.7 x10 3/ul Immature Gran # 0.0 0.0 - 0.3 x10 3/ul Absolute Lymphs (auto) 1.9 0.2 - 4.6 x10 3/ul Absolute Monos (auto) 0.4 0.1 - 1.5 x10 3/ul Absolute Eos (auto) 0.1 0.0 - 0.7 x10 3/ul Absolute Basos (auto) 0.0 0.0 - 0.2 x10 3/ul 01/17/2016 10:4 1 PM CDT 01/17/2016 10:44 PM CDT Rip Palomino LAB BLOOD ORDERABLES Kristi l Result Performing Organization Address City[facility] Co de Phone Number [facility] * Urinalysis (01/17/2016 10:35 PM CDT) Ur Collection Type CLEAN CATCH Urine Color YELLOW YELLOW Urine Clarity CLEAR CLEAR Urine Glucose (UA) NORMAL NORMAL mg/dL Urine Bilirubin NEGATIVE NEGATIVE mg/dl Urine Ketones NEGATIVE NEGATIVE mg/dL Ur Specific [place] 1.012 1.005 - 1.025 Urine Blood NEGATIVE NEGATIVE mg/dl Urine pH 8.0 5.0 - 8.0 Urine Protein NEGATIVE NEGATIVE mg/dL Urine Urobilinogen NORMAL NORMAL mg/dL Urine Nitrite NEGATIVE NEGATIVE Ur Leukocyte Esterase NEGATIVE NEGATIVE Vasile/ul Ur Microscopic Review Not Indicated 01/17/2016 10:3 5 PM CDT 01/17/2016 10:55 PM CDT Rip Palomino LAB URINE ORDERABLES Kristi l Result [facility] documented in this encounter Visit Diagnoses Diagnosis Abdominal pain Abdominal pain, unspecified site Nausea with vomiting documented in this encounter
--- OUTSIDE RECORDS SUMMARY | 2024-04-01 05:54 | XMS_ITS | Encounter Summary ---
Author Organization [facility] Address [address] [address] Care Team Providers Care Document Image Technician Name Role Phone Supriya Hay Primary Care Provider [phone]- [phone] Reason for Referral * Diagnostic Imaging (Routine) - Closed Specialty Diagnoses / Procedures Referred By Melissa swanson Referred To Contact Diagnoses Left leg pain Procedures XR Tibia Fibula Left 2 View Helio Tapia MD [address] [place] [address] [address] [place] [address] Phone: tel: fax: [address] [phone] Referral ID Status Reason Start Date Expiration Date Visits Re quested Visits Authorized [id number] Closed 06/17/2020 07/17/2021 1 1 * Diagnostic Imaging (Routine) - Closed Specialty Diagnoses / Procedures Referred By Melissa swanson Referred To Contact Diagnoses Chronic pain of left knee Procedures XR Knee Left 1 or 2 Views [facility] [address] [place] [address] Phone: tel: fax: [address] [phone] Referral ID Status Reason Start Date Expiration Date Visits Re quested Visits Authorized [id number] Closed 06/17/2020 07/17/2021 1 1 Reason for Visit * Reason Comments Pain * Consultation (Routine) - Closed Specialty Diagnoses / Procedures Referred By Melissa swanson Referred To Contact Orthopedic Surgery Diagnoses Left leg pain Supriya Hay PA [address] [place] [address] Phone: tel: fax: Helio Tapia MD [address] [place] [address] [address] [place] [address] Phone: tel: fax: Referral ID Status Reason Start Date Expiration Date V isits Requested Visits Authorized [id number] Closed Specialty Services Required 05/24/2020 06/23/2021 1 1 Encounter Details Date Type Department Care Team (Late st Contact Info) Description 06/17/2020 1:30 PM CDT Office Visit [facility] Orthopedics and Sports Medicine [address] [place] [phone] Helio Tapia MD [address] [place] [address] [address] [place] [address] Chronic pain of left knee (Primary Dx); Left leg pain Social History Tobacco Use Types Packs/Day [...] PM CDT 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 Visit Date: 06/17/2020 Physician: Helio Tapia MD Assessments: 1. 40-year-old female with left leg diaphyseal tibia pain status post fall 05/09/2020 on ice 2. The patient has evidence of low back pain and numbness or tingling down the left lower extremityconcerning for radiculopathy History of Present Illness: The patient is a 40-year-old young lady that reports in 05/09/20 she was in a parking garage when she fell on some ice. She reports that she went to the emergency room as well as her primary care provider. She reports that she has her primary pain generator at the area of the mid diaphysis of the tibia and he goes distalward down to the distal 1/3 tibia is tender to palpation at the anterior aspect of the tibia. She reports that she has had swelling and ecchymosis in the past that is now resolved. She also reports that she has back pain with radiculopathy symptoms and numbness or tingling to the foot. She reports the pain is better with rest and worse with walking a lot and lifting the leg. There is no calf pain concerning for deep vein thrombosis and the pain is at the anterior tibial crest. Review of Systems and Examination: Left knee and lower leg exam On examination, the patient is alert and oriented times three. Hearing is intact to spoken word with mood and affect within normal limits. There is no groin pain with internal and external rotation of the hip. The skin is intact across the lower extremity with no evidence of clinical infection. There is no evidence at the calf concerning for deep vein thrombosis. The lower extremity is warm and we ll perfused. Sensation is intact in the superficial peroneal nerve, deep peroneal nerve, sural, saphenous, and plantar nerves. There is intact strength with ankle dorsiflexion and plantarflexion. There is no evidence of intraarticular effusion. Full extension of the knee. 135 degrees of knee flexion . There is no tenderness at the patellar tendon and no tenderness at the quadriceps tendon. The knee is stable to varus and valgus testing at terminal extension and 30 degrees of flexion. Anterior drawer and Hal exam is grade 1A and Posterior drawer test is grade 0. There is no crepitus and no pain with open chain knee extension. There is no tenderness at the medial joint line. There is no tenderness at the lateral joint line. The patient has no overt ecchymosis at the lower leg but she hasdistinct tenderness over the anteromedial crest from the mid diaphysis down distal 1/3 tibia. Thereis no evidence of defect at the Achilles. She has full range of motion of ankle dorsi and plantar flexion and no pain at the mid lateral malleolus or medial malleolus. Data Review: I personally reviewed the radiology images including left knee radiographs as well as left tibia and fibular two view radiographs. There is no evidence of overt fracture dislocation or tumor. There is some evidence of degenerative joint space narrowing at the medial compartment with noevidence of overt loose body Plan: At this time the patient has a primary pain generator of mid diaphyseal to distal 1/3 anteromedial diaphyseal tibia pain. I think this likely represents a soft tissue and possible bone contusion and resolving ecchymosis in this area as she reports that she did have skin bruising at the time of the fall. I think that in the absence of any overt stress fracture we can continue with conservative management at this point. The patient does have considerable back pain with radiculopathy type symptomsso we will refer her to a addictions recovery specialist as this is outside of my scope of practice. The patient does not feel like she would benefit from a Cam walker boot for immobilization and protection at this point and she reports that she self discontinued the splint that she had from the emergency room as it was not helpful. She will continue keep a journal going forward and if she has recalcitrant symptoms despite activity modification icing and anti-inflammatory medications with the meloxicam that is prescribed then consideration of advanced imaging would be reasonable in the future. I gave the patient sher images of the knee and tibia radiographs for her to take home. I discussed that she does have evidence of degenerative changes at the medial compartment that are currently asymptomatic and she verbalized understanding that she has some evidence of primary osteoarthritis changes and will monitor for any symptoms in the future. The total time spent by myself on the date of the encounter preparing to see the patient, performing a medically appropriate evaluation, performing counseling and education, documenting of clinical information into the healthcare record, independently interpreting results and coordinating care was greater than 15 minutes. documented in this encounter Plan of Treatment Not on file documented as of this encounter Results * XR Tibia Fibula Left 2 View (06/17/2020 2:21 PM CDT) Anatomical Region Laterality Modality Lower Extremities, Lower Leg Left Rad iographic Imaging 06/19/2020 12:5 9 PM CDT Narrative 06/19/2020 12:59 PM CDT Patient Name: AZIZA LOCKHART ?Ordering Dr: Helio Tapia MD ?? D.O.B: 1980 ? Exam Date: 06/17/20 ?? 1421 ?? Age: 40 ?Sex: Female ? MR#: [id number] ?? Loc: ? RADIOLOGY REPORT ?? Order #[id number] ?? Radiology ? Tib/Fib LT 2 View ? Signed ?? EXAM DESCRIPTION: ?? Tib/Fib LT 2 View ? REASON FOR STUDY: ?? Left tibia pain ? COMPARISON: ?? None ? FINDINGS: ?There is no evidence of overt fracture dislocation or tumor. ??There is no ?? evidence of lucency at the anterior tibial cortex concerning for stress ?? reaction. ??There is no overt pathology about the knee or ankle. ??There is no ?? evidence of syndesmosis diastasis. ? IMPRESSION: ?? 1. ??Unremarkable examination of the left tibia and fibula. ? THIS IS AN ELECTRONICALLY VERIFIED FINAL REPORT ?? 06/19/2020 12:59 PM - Electronically signed by Helio Tapia ?? Helio Tapia ? MH ?? D: ??06/19/2020 12:59 PM ?? T: ? Report ID: [id number] ?? Reading Location: ??[id number] ? REPORT ELECTRONICALLY SIGNED IN OTHER VENDOR SYSTEM ?? Resulting Agency Comment O Procedure Note Helio Tapia MD - 06/19/2020 Patient Name: AZIZA LOCKHART Dr: Helio Tapia MD D.O.B: 1980 Exam Date: 06/17/20 1421 Age: 40 Sex: Female MR#: [id number] Loc: RADIOLOGY REPORT Order #[id number] Radiology Tib/Fib LT 2 View Signed EXAM DESCRIPTION: Tib/Fib LT 2 View REASON FOR STUDY: Left tibia pain COMPARISON: None FINDINGS: There is no evidence of overt fracture dislocation or tumor. There isno evidence of lucency at the anterior tibial cortex concerning for stress reaction. There is no overt pathology about the knee or ankle. There isno evidence of syndesmosis diastasis. IMPRESSION: 1. Unremarkable examination of the left tibia and fibula. THIS IS AN ELECTRONICALLY VERIFIED FINAL REPORT 06/19/2020 12:59 PM - Electronically signed by Helio Tapia T: Report ID: [id number] Reading Location: [id number] REPORT ELECTRONICALLY SIGNED IN OTHER VENDOR SYSTEM Helio Tapia MD IMG XR PROCEDURES Final Result * XR Knee Left 1 or 2 Views (06/17/2020 1:58 PM CDT) Anatomical Region Laterality Modality Lower Extremities, Knee Left Radiogra phic Imaging 06/19/2020 1:07 PM CDT Narrative 06/19/2020 1:08 PM CDT Patient Name: AZIZA LOCKHART ?Ordering Dr: Helio Tapia MD ?? D.O.B: 1980 ? Exam Date: 06/17/20 ?? 1358 ?? Age: 40 ?Sex: Female ? MR#: [id number] ?? Loc: ? RADIOLOGY REPORT ?? Order #[id number] ?? Radiology ? Knee LT 1 or 2 View (Special) ? Signed ?? EXAM DESCRIPTION: ?? Knee LT 1 or 2 View (Special) ? REASON FOR STUDY: ?? Left knee pain ? COMPARISON: ?? August 25, 2015 two nonweightbearing views left knee ? FINDINGS: ?Knee there is no evidence of fracture, dislocation or tumor. ??There is no ?? evidence of overt loose body. ??There is evidence of mild degenerative joint ?? space narrowing degenerative changes of the medial compartment and ?? patellofemoral joint compartment. ??There is no evidence of malignancy ? IMPRESSION: ?? 1. ??Evidence of degenerative changes at the medial compartment ?? patellofemoral joint compartment ? THIS IS AN ELECTRONICALLY VERIFIED FINAL REPORT ?? 06/19/2020 1:08 PM - Electronically signed by Helio Tapia ?? Helio Tapia ? MH ?? D: ??06/19/2020 1:08 PM ?? T: ? Report ID: [id number] ?? Reading Location: ??[id number] ? REPORT ELECTRONICALLY SIGNED IN OTHER VENDOR SYSTEM ?? Resulting Agency Comment O Procedure Note Helio Tapia MD - 06/19/2020 Patient Name: AZIZA LOCKHART Dr: Helio Tapia MD D.O.B: 1980 Exam Date: 06/17/20 1358 Age: 40 Sex: Female MR#: [id number] Loc: RADIOLOGY REPORT Order #[id number] Radiology Knee LT 1 or 2 View (Special) Signed EXAM DESCRIPTION: Knee LT 1 or 2 View (Special) REASON FOR STUDY: Left knee pain COMPARISON: August 25, 2015 two nonweightbearing views left knee FINDINGS: Knee there is no evidence of fracture, dislocation or tumor. There isno evidence of overt loose body. There is evidence of mild degenerativejoint space narrowing degenerative changes of the medial compartment and patellofemoral joint compartment. There is no evidence of malignancy IMPRESSION: 1. Evidence of degenerative changes at the medialcompartment patellofemoral joint compartment THIS IS AN ELECTRONICALLY VERIFIED FINAL REPORT 06/19/2020 1:08 PM - Electronically signed by Helio Tapia T: Report ID: [id number] Reading Location: [place] [address] REPORT ELECTRONICALLY SIGNED IN OTHER VENDOR SYSTEM Helio Tapia MD IMG XR PROCEDURES Final Result documented in this encounter Visit Diagnoses Diagnosis Chronic pain of left knee- Primary Left leg pain Pain in soft tissues of limb Left leg pain Pain in soft tissues of limb Chronic pain of left knee documented in this encounter Orders Outpatient Referral Count Last Ordered Date Fir st Ordered Date AMB REFERRAL TO ORTHOPEDIC SURGERY 1 2020 documented in this encounter Care Teams Document Image Technician Relationship Specialty Start Date End Date Supriya Hay PA [address] [facility] [address] [place] [address] PCP - General Internal Medicine 02/21/20 documented as of this encounter
--- OUTSIDE RECORDS SUMMARY | 2024-04-01 05:54 | XMS_ITS | Encounter Summary ---
Author Organization [facility] Healthcare Address [address] [place] [address] Care Team Providers Care Money Position Officer Name Role Phone Unavailable Primary Care Provider Unavailabl e Encounter Details Date Type Department Care Team (Latest Contact Info) Description 10/17/2012 8:05 AM CDT Hospital Encounter [facility] Castro Winchester MD [address] [facility] [address] [place] [address] Abdominal pain, epigastric; Nausea without vomiting Social History Tobacco Use Types Packs/Day Years Used Date Smoking Tobacco: Never Assessed Comments Unknown Sex and Gender Information Value Date Recorded Sex Assigned at Female 11/16/2022 3:54 PM CDT 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 1. ??No cystic duct obstruction with normal gallbladder EF of approximately 82%. THIS IS AN ELECTRONICALLY VERIFIED REPORT 10/17/2012 10:44 AM: ??Castro Zuluaga D.O. Castro Zuluaga D.O. :as 10:44 AM 10:44 AM [facility] [EOD] Narrative 10/17/2012 10:48 AM CDT EXAMINATION: ??Hepatobiliary scintigraphy. HISTORY: ??Nausea, epigastric pain. TECHNIQUE: ??5.9 mCi technetium 99 labeled Choletec, 1.1 mcg CCK. COMPARISON: ??Right upper quadrant ultrasound 10/07/[address] abdomen and pelvis 08/07/2012. FINDINGS: ??There is prompt and homogeneous hepatic uptake. ??There is normal excretion into the biliary tree and gallbladder between 6 and 8 minutes. ?? There is appropriate biliary to bowel clearance. ??Following the administration of CCK, there is normal emptying of the gallbladder with progressive small-bowel accumulation. ??Time activity curves demonstrate an ejection fraction of just under 82% which is within normal limits. Procedure Note Provider, MD Sonal - 08/06/2020 EXAMINATION: Hepatobiliary scintigraphy. HISTORY: Nausea, epigastric pain. TECHNIQUE: 5.9 mCi technetium 99 labeled Choletec, 1.1 mcg CCK. COMPARISON: Right upper quadrant ultrasound 10/07/[address] abdomen and pelvis 08/07/2012. FINDINGS: There is prompt and homogeneous hepatic uptake. There isnormal excretion into the biliary tree and gallbladder between 6 and 8 minutes. There is appropriate biliary to bowel clearance. Following theadministration of CCK, there is normal emptying of the gallbladder with progressive small-bowel accumulation. Time activity curves demonstrate an ejection fraction of just under 82% which is within normal limits. IMPRESSION: 1. No cystic duct obstruction with normal gallbladder EF of [id number] THIS IS AN ELECTRONICALLY VERIFIED REPORT 10/17/2012 10:44 AM: Castro Zuluaga D.O. Castro Zuluaga D.O. :as 10:44 AM 10:44 AM [facility] [EOD] us Castro Winchester MD IMG NM PROCEDURES Final Re sult documented in this encounter Visit Diagnoses Diagnosis Abdominal pain, epigastric Nausea without vomiting documented in this encounter
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
--- OUTSIDE RECORDS SUMMARY | 2024-04-01 05:54 | XMS_ITS | Encounter Summary ---
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 Name Role Phone Unavailable Primary Care Provider Unavailabl e Encounter Details Date Type Department Care Team (Late st Contact Info) Description 05/30/2013 9:41 AM CDT Hospital Encounter [facility] OP Castro Winchester MD [address] [facility] [address] [place] [address] Abdominal pain Social History Tobacco Use Types Packs/Day Years Used Date Smoking Tobacco: Never Assessed Comments Unknown Sex and Gender Information Value Date Recorded Sex Assigned at Female 11/16/2022 3:54 PM CDT 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 1. ??No evidence of bowel obstruction or appendicitis. 2. ??Small amount of free pelvic fluid, within physiologic normal limits. THIS IS AN ELECTRONICALLY VERIFIED REPORT 06/01/2013 5:59 AM: ??Tejinder Lang M.D. Tejinder Lang M.D. AT:bb 09:44 PM 08:51 AM [facility] [EOD] Narrative 06/01/2013 6:03 AM CDT EXAMINATION: ??CT OF THE ABDOMEN AND PELVIS WITH IV CONTRAST COMPARISON: ??08/07/2012 HISTORY: ??Periumbilical pain, multi site abdominal pain, stomach pain TECHNIQUE: ??CT of the abdomen and pelvis was performed with IV contrast. ??100 mL of Omnipaque 350 was instilled intravenously through the right antecubital fossa. FINDINGS: Images of lung bases are unremarkable. Decreased attenuation along the falciform ligament is noted, most compatible with focal fatty infiltration. ??A sub-centimeter focus of decreased attenuation and nonenhancement is noted on image 33, too small to definitively characterize, statistically most likely to represent a benign etiology such as a cyst. ??The spleen, pancreas, adrenal glands, and gallbladder demonstrate an unremarkable postcontrast CT appearance. ??Both kidneys demonstrate normal postcontrast enhancement. ??The bladder is mildly distended with fluid and otherwise unremarkable. ??The renal collecting system is not significantly dilated. ??Circumaortic left renal vein is incidentally noted. ??The aorta demonstrates normal course and caliber. ??The uterus and adnexal regions are grossly unremarkable. ??A small amount of free pelvic fluid is noted, within physiologic limits. ??The imaged portion of the appendix is unremarkable in the right lower quadrant. ??There is no evidence of bowel obstruction. ??Fat containing supraumbilical hernia is noted. ??Heterogeneously enhancing mass arising from the uterine fundus is noted, compatible with a fibroid. Procedure Note Provider, MD Sonal - 08/06/2020 EXAMINATION: CT OF THE ABDOMEN AND PELVIS WITH IV CONTRAST COMPARISON: 08/07/2012 HISTORY: Periumbilical pain, multi site abdominal pain, stomach pain TECHNIQUE: CT of the abdomen and pelvis was performed with IV contrast.100 mL of Omnipaque 350 was instilled intravenously through the rightantecubital fossa. FINDINGS: Images of lung bases are unremarkable. Decreased attenuation along the falciform ligament is noted, mostcompatible with focal fatty infiltration. A sub-centimeter focus of decreased attenuation and nonenhancement is noted on image 33, too small todefinitively characterize, statistically most likely to represent a benign etiologysuch as a cyst. The spleen, pancreas, adrenal glands, and gallbladder demonstratean unremarkable postcontrast CT appearance. Both kidneys demonstrate normal postcontrast enhancement. The bladder is mildly distended with fluid and otherwise unremarkable. The renal collecting system is not significantly dilated. Circumaortic left renal vein is incidentally noted. The aorta demonstrates normal course and caliber. The uterus and adnexal regionsare grossly unremarkable. A small amount of free pelvic fluid is noted,within physiologic limits. The imaged portion of the appendix is unremarkable inthe right lower quadrant. There is no evidence of bowel obstruction. Fat containing supraumbilical hernia is noted. Heterogeneously enhancing mass arising from the uterine fundus is noted, compatible with a fibroid. IMPRESSION: 1. No evidence of bowel obstruction or appendicitis. 2. Small amount of free pelvic fluid, within physiologic normal limits. THIS IS AN ELECTRONICALLY VERIFIED REPORT 06/01/2013 5:59 AM: Tejinder Lang M.D. Tejinder Lang M.D. AT:bb 09:44 PM 08:51 AM [facility] [EOD] Castro Winchester MD IMG CT PROCEDURES Final Re sult documented in this encounter Visit Diagnoses Diagnosis Abdominal pain Abdominal pain, unspecified site documented in this encounter
--- OUTSIDE RECORDS SUMMARY | 2024-04-01 05:54 | XMS_ITS | Encounter Summary ---
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 Name Role Phone Unavailable Primary Care Provider Unavailabl e Encounter Details Date Type Department Care Team (Latest Contact Info) Description 06/19/2013 10:17 AM CDT - 06/19/2013 2:40 PM CDT Hospital Encounter [facility] Castro Winchester MD [address] [facility] [address] [place] [address] Abdominal pain, periumbilical; Acute gastritis; Atrophic gastritis Social History Tobacco Use Types Packs/Day Years Used Date Smoking Tobacco: Never Assessed Comments Unknown Sex and Gender Information Value Date Recorded Sex Assigned at Female 11/16/2022 3:54 PM CDT 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 Gender Identity Female 11/16/2022 3:54 PM CDT Sexual Orientation Straight 11/16/2022 3: 54 PM CDT documented as of this encounter Last Filed Vital Signs Vital Sign Reading Time Taken Comments Blood Pressure 115/79 06/19/2013 10:42 AM CDT Pulse 69 06/19/2013 10:42 AM CDT Temperature 36.7 ??C (98 ??F) 06/19/2013 10:42 AM CDT Respiratory Rate - - Oxygen Saturation 99% 06/19/2013 10:42 AM CDT Inhaled Oxygen Concentration - - Weight 62.6 kg (138 lb) 06/19/2013 10:42 AM CDT Height 157.5 cm (5' 2 ) 06/19/2013 10:42 AM CDT Body Mass Index 25.24 06/19/2013 10:42 AM CDT documented in this encounter Plan of Treatment Not on file documented as of this encounter Procedures Procedure Name Priority Date/Time Associated Diagnosis Comments SCAN - PATHOLOGY 06/20/2013 12:0 0 AM CDT documented in this encounter Results * SCAN - PATHOLOGY (06/20/2013 12:00 AM CDT) Narrative 06/20/2013 12:00 AM CDT Ordered by an unspecified provider. us Historical Provider Final Res ult documented in this encounter Visit Diagnoses Diagnosis Abdominal pain, periumbilical Abdominal pain, periumbilic Acute gastritis Acute gastritis without mention of hemorrhage Atrophic gastritis documented in this encounter
--- OUTSIDE RECORDS SUMMARY | 2024-04-01 05:54 | XMS_ITS | Encounter Summary ---
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 Name Role Phone Dagoberto Schultz MD Primary Care Provider Encounter Details Date Type Department Care Team (Late st Contact Info) Description 06/29/2018 6:00 PM CDT - 06/29/2018 10:14 PM CDT Hospital Encounter [address] [address] Matt Kurtz MD [address] [place] [address] [place] [address] Discharge Disposition: Discharge to home or self care Social History Tobacco Use Types Packs/Day Years Used Date Smoking Tobacco: Never Assessed Comments Unknown Sex and Gender Information Value Date Recorded Sex Assigned at Female 11/16/2022 3:54 PM CDT Legal Sex 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[employer] Gender Identity Female 11/16/2022 3:54 PM CDT Sexual Orientation Straight 11/16/2022 3: 54 PM CDT documented as of this encounter Last Filed Vital Signs Vital Sign Reading Time Taken Comments Blood Pressure 114/81 06/29/2018 6:16 PM CDT Pulse 86 06/29/2018 6:16 PM CDT Temperature 37.1 ??C (98.8 ??F) 06/29/2018 6:16 PM CD T Respiratory Rate - - Oxygen Saturation 100% 06/29/2018 6:16 PM CDT Inhaled Oxygen Concentration - - Weight 61.2 kg (135 lb) 06/29/2018 6:16 PM CDT Height 157.5 cm (5' 2 ) 06/29/2018 6:16 PM CDT Body Mass Index 24.69 06/29/2018 6:16 PM CDT documented in this encounter Discharge Disposition Disposition Code Departure Means Destination Discharge to home or self care documented in this encounter Plan of Treatment Not on file documented as of this encounter Procedures Procedure Name Priority Date/Time Associated Diagnosis Comments TROPONIN I Routine 06/29/2018 9:20 PM CDT CTA CHEST W IV CONTRAST - PE 06/29/2018 7:[address] ABDOMEN PELVIS W CONTRAST 06/29/2018 7:51 PM CDT ECG 12-LEAD 06/29/2018 6:30 PM CDT TNI WITH LIPID PANEL Routine 06/29/2018 6:21 PM CDT CBC WITH AUTO DIFFERENTIAL Routine 06/29/2018 6:21 PM CDT COMPREHENSIVE METABOLIC PANEL Routine 06/29/2018 6:21 PM CDT ECG 12-LEAD 06/29/2018 6:06 PM CDT XR CHEST 1 VIEW 06/29/2018 12:00 AM CDT documented in this encounter Results * Troponin I (06/29/2018 9:20 PM CDT) Troponin I <0.300 0.000 - 0.300 ng/mL [facility] Comment: Reference using LUIZ Chemiluminescence ? Negative: Repeat in 4-6 hours as indicated. 06/29/2018 9:20 PM CDT 06/29/2018 9:23 PM CDT Narrative Resulting Agency Comment ER us Pelon HERNANDEZ LAB BLOOD ORDERABLES Final Result [facility] [address] [place] [address], [place] [phone] * CT Abdomen Pelvis W Contrast (06/29/2018 7:51 PM CDT) Anatomical Region Laterality Modality Body N/A Computed Tomogra phy 06/29/2018 8:29 PM CDT Narrative 06/29/2018 8:37 PM CDT Patient Name: AZIZA LOCKHART ?Ordering Dr: Matt Kurtz MD ?? D.O.B: 1980 ? Exam Date: 06/29/18 ?? 195 ?? Age: 38 ?Sex: Female ? MR#: [id number] ?? Loc: ? RADIOLOGY REPORT ?? Order #[id number] ?? CT Scan ? CT Abd/Pelvis W IV Contrast ? Signed ?? EXAM DESCRIPTION: ??CT Abd/Pelvis W IV Contrast ? REASON FOR STUDY: ??Chest pain radiating into right arm for 3 days, nausea ? TECHNIQUE: ??CT scan of the abdomen and pelvis performed with intravenous and ?? without oral contrast using helical scanning technique with dynamic ?? intravenous contrast injection. Reconstructed coronal and sagittal MPR images ?? reviewed. All images stored on PACS. ? Automated exposure control was used as a dose optimization technique for this ?? examination. ? CONTRAST TYPE/DOSE: ??100 mL Optiray 350 injected via right arm ? COMPARISON: ??None ? FINDINGS: ? LOWER CHEST: No significant pulmonary abnormalities. No effusion. ? LIVER: Tiny hepatic cyst. ??No suspicious mass. ??Normal size. ? GALLBLADDER: Cholecystectomy. ? BILE DUCTS: No intrahepatic or extrahepatic ductal dilatation. ? SPLEEN: Normal size. ??No focal lesions. ? PANCREAS: No identified cystic or solid masses. No significant calcifications. ?? No adjacent inflammation or peripancreatic fluid collections. Pancreatic duct ?? not dilated. ? ADRENALS: Normal. ? KIDNEYS/URINARY TRACT: No identified significant cystic or solid masses. No ?? visualized stones. No hydronephrosis or hydroureter. Symmetric enhancement. ?? Urinary bladder is unremarkable. ? GI: No dilated bowel loops. No obvious wall thickening. ??Normal appendix. ??No ?? significant diverticular disease. ? PERITONEUM: No ascites or free air. ? RETROPERITONEUM: No mass or adenopathy. ? REPRODUCTIVE: There is an exophytic fibroid arising from the right uterus. ? There is a 3.5 cm right adnexal cyst likely physiologic. ??An IUD is seen. ? VASCULATURE: No abdominal aortic aneurysm. ? MUSCULOSKELETAL: No significant abnormality. ? OTHER: No other abnormality. ? IMPRESSION: ??No acute abnormality to account for the patient's symptoms. ? THIS IS AN ELECTRONICALLY VERIFIED FINAL REPORT ?? 06/29/2018 8:37 PM - Electronically signed by Rickie Mcpherson M.D. ?? Rickie Mcpherson M.D. ? [facility] ?? D: ??06/29/2018 8:37 PM ?? T: ? Report ID: [id number] ?? Reading Location: ??[id number] ? REPORT ELECTRONICALLY SIGNED IN OTHER VENDOR SYSTEM ?? Resulting Agency Comment E Procedure Note Rickie Mcpherson MD - 06/29/2018 Patient Name: AZIZA LOCKHART Dr: Matt Kurtz MD D.O.B: 1980 Exam Date: 06/29/181950 Age: 38 Sex: Female MR#: [id number] Loc: RADIOLOGY REPORT Order #[id number] CT Scan CT Abd/Pelvis W IV Contrast Signed EXAM DESCRIPTION: CT Abd/Pelvis W IV Contrast REASON FOR STUDY: Chest pain radiating into right arm for 3 days, nausea TECHNIQUE: CT scan of the abdomen and pelvis performed with intravenousand without oral contrast using helical scanning technique with dynamic intravenous contrast injection. Reconstructed coronal and sagittal MPRimages reviewed. All images stored on PACS. Automated exposure control was used as a dose optimization technique forthis examination. CONTRAST TYPE/DOSE: 100 mL Optiray 350 injected via right arm COMPARISON: None FINDINGS: LOWER CHEST: No significant pulmonary abnormalities. No effusion. LIVER: Tiny hepatic cyst. No suspicious mass. Normal size. GALLBLADDER: Cholecystectomy. BILE DUCTS: No intrahepatic or extrahepatic ductal dilatation. SPLEEN: Normal size. No focal lesions. PANCREAS: No identified cystic or solid masses. No significantcalcifications. No adjacent inflammation or peripancreatic fluid collections. Pancreaticduct not dilated. ADRENALS: Normal. KIDNEYS/URINARY TRACT: No identified significant cystic or solid masses.No visualized stones. No hydronephrosis or hydroureter. Symmetricenhancement. Urinary bladder is unremarkable. GI: No dilated bowel loops. No obvious wall thickening. Normal appendix.No significant diverticular disease. PERITONEUM: No ascites or free air. RETROPERITONEUM: No mass or adenopathy. REPRODUCTIVE: There is an exophytic fibroid arising from the rightuterus. There is a 3.5 cm right adnexal cyst likely physiologic. An IUD is seen. VASCULATURE: No abdominal aortic aneurysm. MUSCULOSKELETAL: No significant abnormality. OTHER: No other abnormality. IMPRESSION: No acute abnormality to account for the patient's symptoms. THIS IS AN ELECTRONICALLY VERIFIED FINAL REPORT 06/29/2018 8:37 PM - Electronically signed by Rickie MIRELES T: Report ID: [id number] Reading Location: [id number] REPORT ELECTRONICALLY SIGNED IN OTHER VENDOR SYSTEM us Matt Kurtz MD IMG CT PROCEDURES Final Re sult * CTA Chest W IV Contrast - PE (06/29/2018 7:51 PM CDT) Anatomical Region Laterality Modality Body N/A Computed Tomogra phy 06/29/2018 8:22 PM CDT Narrative 06/29/2018 8:29 PM CDT Patient Name: AZIZA LOCKHART ?Ordering Dr: Matt Kurtz MD ?? D.O.B: 1980 ? Exam Date: 06/29/18 ?? 1949 ?? Age: 38 ?Sex: Female ? MR#: [id number] ?? Loc: ? RADIOLOGY REPORT ?? Order #[id number] ?? CT Scan ? CTA Chest W IV Contrast - PE ? Signed ?? EXAM DESCRIPTION: ??CTA Chest W IV Contrast - PE ? REASON FOR STUDY: ??Chest pain radiating to right arm with nausea for 3 days ? TECHNIQUE: ??CT angiogram of the chest performed with intravenous contrast ?? using helical scanning technique with dynamic intravenous contrast injection. ?? Reconstructed coronal and sagittal MPR images reviewed. All images stored on ?? PACS. 3D MIP images rendered on scanning unit and reviewed at time of ?? interpretation. Automated exposure control was used as a dose optimization ?? technique for this examination. ? CONTRAST TYPE/DOSE: ??80 mL Optiray 350 injected via right arm ? COMPARISON: ??10/09/2014 ? FINDINGS: ? VASCULATURE: No identified pulmonary emboli. ? LUNGS: No nodules or masses. No pneumonia. ? PLEURA: No effusion. No pneumothorax. ? MEDIASTINUM/ISA: No identified masses or abnormal nodes. ??Minimal residual ?? thymic tissue. ? HEART: Heart size is normal with no pericardial effusion. ? AXILLA: No adenopathy. ? CHEST WALL: No masses. ??No subcutaneous air. ? HARDWARE/LINES/TUBES: None. ? UPPER ABDOMEN: Cholecystectomy. ? MUSCULOSKELETAL: No significant abnormality. ? OTHER: No significant abnormality. ? IMPRESSION: ??No evidence of pulmonary embolism. Normal CT of the chest. ? THIS IS AN ELECTRONICALLY VERIFIED FINAL REPORT ?? 06/29/2018 8:29 PM - Electronically signed by Rickie Mcpherson M.D. ?? Rickie Mcpherson M.D. ? [facility] ?? D: ??06/29/2018 8:29 PM ?? T: ? Report ID: [id number] ?? Reading Location: ??[id number] ? REPORT ELECTRONICALLY SIGNED IN OTHER VENDOR SYSTEM ?? Resulting Agency Comment E Procedure Note Rickie Mcpherson MD - 06/29/2018 Patient Name: AZIZA LOCKHART Dr: Matt Kurtz MD D.O.B: 1980 Exam Date: 06/29/181950 Age: 38 Sex: Female MR#: [id number] Loc: RADIOLOGY REPORT Order #[id number] CT Scan CTA Chest W IV Contrast - PE Signed EXAM DESCRIPTION: CTA Chest W IV Contrast - PE REASON FOR STUDY: Chest pain radiating to right arm with nausea for 3days TECHNIQUE: CT angiogram of the chest performed with intravenous contrast using helical scanning technique with dynamic intravenous contrastinjection. Reconstructed coronal and sagittal MPR images reviewed. All images storedon PACS. 3D MIP images rendered on scanning unit and reviewed at time of interpretation. Automated exposure control was used as a doseoptimization technique for this examination. CONTRAST TYPE/DOSE: 80 mL Optiray 350 injected via right arm COMPARISON: 10/09/2014 FINDINGS: VASCULATURE: No identified pulmonary emboli. LUNGS: No nodules or masses. No pneumonia. PLEURA: No effusion. No pneumothorax. MEDIASTINUM/ISA: No identified masses or abnormal nodes. Minimalresidual thymic tissue. HEART: Heart size is normal with no pericardial effusion. AXILLA: No adenopathy. CHEST WALL: No masses. No subcutaneous air. HARDWARE/LINES/TUBES: None. UPPER ABDOMEN: Cholecystectomy. MUSCULOSKELETAL: No significant abnormality. OTHER: No significant abnormality. IMPRESSION: No evidence of pulmonary embolism. Normal CT of the chest. THIS IS AN ELECTRONICALLY VERIFIED FINAL REPORT 06/29/2018 8:29 PM - Electronically signed by Rickie Mcpherson M.D. [facility] T: Report ID: [id number] Reading Location: [id number] REPORT ELECTRONICALLY SIGNED IN OTHER VENDOR SYSTEM us Matt Kurtz MD IMG CT PROCEDURES Final Re sult * ECG 12 lead (06/29/2018 6:30 PM CDT) Pathologist [facility] Ventricular Rate EKG/Min [address] [facility] Atrial Rate 90 BPM [facility] NE-Interval (MSEC) [address] [facility] QRS-Interval (MSEC) [address] [facility] QT-Interval (MSEC) [address] [facility] QTc [address] [facility] P [place] [address] [facility] R [place] [address] [facility] T [place] [address] [facility] Diagnosis Normal sinus rhythm Cannot rule out Anterior infarct (cited on or before 29-JUN-2018) Abnormal ECG When compared with ECG of 29-JUN-2018 18:06, No significant change was found [facility] 06/29/2018 6:30 PM CDT 06/30/2018 1:54 PM CDT Narrative Resulting Agency Comment KEISHA us Matt Kurtz MD ECG ORDERABLES Final Resu lt [facility] [address] [place] [address] * (ABNORMAL) TNI with LIPID PANEL (06/29/2018 6:21 PM CDT) Pathologist [facility] Troponin I <0.300 0.000 - 0.300 ng/mL [facility] Comment: Reference using LUIZ Chemiluminescence ? Negative: Repeat in 4-6 hours as indicated. Triglycerides 81 0 - 149 mg/dL [facility] Comment: National Lipid Association/NCEP Guidelines: ?? Normal ?< 150 mg/dL ?? Borderline high ?? 150-199 mg/dL ?? High ?200-499 mg/dL ?? Very High ? >=500 mg/dL Cholesterol 220(H) 0 - 199 mg/dL [facility] Comment: National Lipid Association/NCEP Guidelines: Desirable ? < 200 mg/dL Borderline high: ??200-239 mg/dL High Risk: ?>=240 mg/dL HDL Cholesterol 54 mg/dL [facility] Comment: Reference Ranges: ? Males: >=40 mg/dL ? Females: >=50 mg/dL LDL Cholesterol, Calc 150(H) 0 - 129 mg/dL [facility] Comment: National Lipid Association/NCEP Guidelines: ??Optimal ? < 100 mg/dL ??Near Optimal ?100-129 mg/dL ??Borderline high 130-159 mg/dL ??High ?>=160 mg/dL Cholesterol/HDL Ratio 4.1 [facility] Comment: Optimal ??< 3.5:1 High ? > 5:1 06/29/2018 6:21 PM CDT 06/29/2018 6:29 PM CDT Narrative Resulting Agency Comment ER us Pelon HERNANDEZ LAB BLOOD ORDERABLES Final Result [facility] [address] [place] [address], [place] [phone] * (ABNORMAL) Comprehensive metabolic panel (06/29/2018 6:21 PM CDT) Sodium 140 135 - 145 mmol/L [facility] Potassium 3.1(L) 3.3 - 5.1 mmol/L [facility] Chloride 103 96 - 108 mmol/L [facility] Carbon Dioxide 25 22 - 32 mmol/L [facility] Anion Gap 12 7 - 16 [facility] Glucose 74 70 - 100 mg/dL [facility] BUN 13 8 - 25 mg/dL [facility] Creatinine 0.8 0.5 - 1.1 mg/dL [facility] Comment: NOTE: Estimated GFR (Cockroft-Gault) will NOT be calculated unless patient Height and Weight were entered. Also, Kidney Disease Stage (GFR) and Estimated GFR (Cockroft-Gault) will NOT be calculated if Creatinine result is <0.2. Kidney Disease Stage >90 mL/MIN [facility] Comment: NOTE; ??The GFR is an estimated [...] mL/min ? Kidney failure or on dialysis Est GFR (Cockcroft-G) 83 ml/MIN [facility] Comment: Estimated GFR(Cockroft-Gault)is used to calculate patient medication dosage Calcium 9.7 8.6 - 10.3 mg/dL [facility] Total Protein 7.9 6.4 - 8.3 g/dL [facility] Albumin 4.4 3.5 - 5.0 g/dL [facility] Globulin 3.5 2.3 - 3.5 gm/dL [facility] Albumin/Globulin Ratio 1.3 1.1 - 1.8 [facility] Total Bilirubin 0.4 0.0 - 1.2 mg/dL [facility] AST 13 0 - 32 U/L [facility] ALT 10 0 - 33 U/L [facility] Alkaline Phosphatase 96 35 - 104 U/L [facility] 06/29/2018 6:21 PM CDT 06/29/2018 6:29 PM CDT Narrative Resulting Agency Comment ER us Pelon HERNANDEZ LAB BLOOD ORDERABLES Final Result [facility] [address] [place] [address], [place] [phone] * CBC with auto differential (06/29/2018 6:21 PM CDT) WBC 7.1 3.8 - 9.9 X10 3/ul [facility] RBC 4.63 3.90 - 5.20 x10 6/ul [facility] Hemoglobin 14.1 11.9 - 15.5 g/dL [facility] Hct 42.4 35.6 - 45.5 % [facility] MCV 91.6 81.3 - 96.4 fl [facility] MCH 30.5 27.1 - 33.3 pg [facility] MCHC 33.3 32.3 - 35.7 g/dl [facility] RDW 14.3 11.1 - 14.9 % [facility] Plt Count 274 150 - 400 x10 3/ul [facility] MPV 11.0 9.1 - 12.3 fl [facility] Neut % 61.7 % [facility] Immature Gran % 0.3 % [facility]AM[facility]X [facility] Lymph % 31.1 % [facility] Candler % 5.9 % [facility] Eos % 0.7 % [facility] AUTO BASO % 0.3 % [facility] NEUTROPHIL ABS # 4.4 1.7 - 6.5 x10 3/ul [facility] Immature Gran # 0.0 0.0 - 0.1 x10 3/ul [facility] Absolute Lymphs (auto) 2.2 0.8 - 3.3 x10 3/ul [facility] Absolute Monos (auto) 0.4 0.2 - 0.8 x10 3/ul [facility] Absolute Eos (auto) 0.1 0.0 - 0.5 x10 3/ul [facility] BASOPHIL ABS # 0.0 0.0 - 0.1 x10 3/ul [facility] Nucleat RBC Rel Count 0.0 #/100WBC [facility] NRBC abs 0.00 0.00 - 0.01 x10 3/ul [facility] Absolute Neutrophils 4,400 200 - 8,000 /ul [facility] 06/29/2018 6:21 PM CDT 06/29/2018 6:29 PM CDT Narrative Resulting Agency Comment ER Pelon HERNANDEZ LAB BLOOD ORDERABLES Final Result [place] [id number] [address] [phone] * ECG 12 lead (06/29/2018 6:06 PM CDT) Ventricular Rate EKG/Min 100 BPM ER RADIOLOGY Atrial Rate 100 BPM ER RADIOLOGY NE-Interval (MSEC) 138 ms ER RADIOLOGY QRS-Interval (MSEC) 66 ms ER RADIOLOG[facility] QT-Interval (MSEC) 324 ms ER RADIOLOGY QTc 417 ms ER RADIOLOGY P [place] 47 degrees ER RADIOLOGY R [place] 0 degrees ER RADIOLOGY T [place] 42 degrees ER RADIOLOGY Diagnosis Normal sinus rhythm Cannot rule out Anterior infarct , age undetermined Abnormal ECG When compared with ECG of 19-NOV-2015 15:39, No significant change was found ER RADIOLOGY 06/29/2018 6:06 PM CDT 06/30/2018 1:54 PM CDT Narrative Resulting Agency Comment KEISHA us Pelon HERNANDEZ ECG ORDERABLES Final Resu lt ER RADIOLOGY * XR Chest 1 View (06/29/2018 12:00 AM CDT) Anatomical Region Laterality Modality Body, Chest N/A Radiographic Ladan ging 06/29/2018 8:38 PM CDT Narrative 06/29/2018 8:39 PM CDT Patient Name: AZIZA LOCKHART ?Ordering Dr: Pelon Leahy PA-C ?? D.O.B: 1980 ? Exam Date: 06/29/18 ?? 0000 ?? Age: 38 ?Sex: Female ? MR#: [id number] ?? Loc: ? RADIOLOGY REPORT ?? Order #[id number] ?? Radiology ? Chest 1 View Portable ? Signed ?? EXAM DESCRIPTION: ??Chest 1 View Portable ? REASON FOR STUDY: ??Chest pain for 3 days ? TECHNIQUE: ??Frontal radiographic view of the chest acquired. ? COMPARISON: ??11/19/2015 ? FINDINGS: ? LUNGS/PLEURA: No focal consolidation or pneumothorax. No pleural effusion. ? HEART/MEDIASTINUM: Heart size is normal. Normal mediastinal and hilar contours. ? HARDWARE/LINES/TUBES: None. ? BONES: No acute findings. ? OTHER: No other significant finding. ? IMPRESSION: ??No acute cardiopulmonary disease. ? THIS IS AN ELECTRONICALLY VERIFIED FINAL REPORT ?? 06/29/2018 8:39 PM - Electronically signed by Rickie Mcpherson M.D. ?? Rickie Mcpherson M.D. ? [facility] ?? D: ??06/29/2018 8:39 PM ?? T: ? Report ID: [id number] ?? Reading Location: ??[id number] ? REPORT ELECTRONICALLY SIGNED IN OTHER VENDOR SYSTEM ?? Resulting Agency Comment E Procedure Note Rickie Mcpherson MD - 06/29/2018 Patient Name: AZIZA LOCKHART Dr: Pelon Leahy PA-C, D.O.B: 1980 Exam Date: 06/29/18 0000 Age: 38 Sex: Female MR#: [id number] Loc: RADIOLOGY REPORT Order #[id number] Radiology Chest 1 View Portable Signed EXAM DESCRIPTION: Chest 1 View Portable REASON FOR STUDY: Chest pain for 3 days TECHNIQUE: Frontal radiographic view of the chest acquired. COMPARISON: 11/19/2015 FINDINGS: LUNGS/PLEURA: No focal consolidation or pneumothorax. No pleuraleffusion. HEART/MEDIASTINUM: Heart size is normal. Normal mediastinal and hilarcontours. HARDWARE/LINES/TUBES: None. BONES: No acute findings. OTHER: No other significant finding. IMPRESSION: No acute cardiopulmonary disease. THIS IS AN ELECTRONICALLY VERIFIED FINAL REPORT 06/29/2018 8:39 PM - Electronically signed by Rickie MIRELES T: Report ID: [id number] Reading Location: [place] [address] REPORT ELECTRONICALLY SIGNED IN OTHER VENDOR SYSTEM Pelon HERNANDEZ IMG XR PROCEDURES Final Re sult documented in this encounter Visit Diagnoses Not on filedocumented in this encounter Care Teams Corner Block Cutter Relationship Specialty Start Date End Date Dagoberto Schultz MD PCP - General 06/29/18 02/20/20 documented as of this encounter
--- OUTSIDE RECORDS SUMMARY | 2024-04-01 05:54 | XMS_ITS | Encounter Summary ---
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 Phone Unavailable Primary Care Provider Unavailabl e Encounter Details Date Type Department Care Team (Late st Contact Info) Description 10/08/2014 8:52 PM CDT - 10/09/2014 3:43 AM CDT Hospital Encounter [facility] Yenni Monson MD [address] [facility] [address] Abdominal pain; Chest pain Social History Tobacco Use Types Packs/Day Years Used Date Smoking Tobacco: Never Assessed Comments Unknown Sex and Gender Information Value Date Recorded Sex Assigned at Female 11/16/2022 3:54 PM CDT 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 Gender Identity Female 11/16/2022 3:54 PM CDT Sexual Orientation Straight 11/16/2022 3: 54 PM CDT documented as of this encounter Last Filed Vital Signs Vital Sign Reading Time Taken Comments Blood Pressure 135/88 10/08/2014 8:56 PM CDT Pulse 80 10/08/2014 8:56 PM CDT Temperature 36.8 ??C (98.2 ??F) 10/08/2014 8:56 PM CD T Respiratory Rate - - Oxygen Saturation 100% 10/08/2014 8:56 PM CDT Inhaled Oxygen Concentration - - Weight 61.2 kg (135 lb) 10/08/2014 8:56 PM CDT Height 157.5 cm (5' 2 ) 10/08/2014 8:56 PM CDT Body Mass Index 24.69 10/08/2014 8:56 PM CDT documented in this encounter Plan of Treatment Not on file documented as of this encounter Procedures Procedure Name Priority Date/Time Associated Diagnosis Comments CT CHEST W CONTRAST Routine 10/09/2014 2 :10 AM CDT D-DIMER, QUANTITATIVE Routine 10/09/2014 1:02 AM CDT TNI WITH LIPID PANEL Routine 10/08/2014 9:26 PM CDT CBC WITH AUTO DIFFERENTIAL Routine 10/08/2014 9:26 PM CDT LIPASE Routine 10/08/2014 9:26 PM CDT AMYLASE Routine 10/08/2014 9:26 PM CDT COMPREHENSIVE METABOLIC PANEL Routine 10/08/2014 9:26 PM CDT UA WITH CULTURE REFLEX Routine 5 9:15 PM CDT XR CHEST PA LATERAL 2 VIEWS Routine 10/08/2014 12:00 AM CDT documented in this encounter Results * CT Chest W Contrast (10/09/2014 2:10 AM CDT) Anatomical Region Laterality Modality Body N/A Computed Tomogra phy 10/09/2014 2:10 AM CDT Impressions 10/09/2014 3:26 AM CDT no acute findings. THIS IS AN ELECTRONICALLY VERIFIED REPORT 10/09/2014 3:23 AM: ??See Patel M.D. See Patel M.D. RW:rw 03:23 AM 03:23 AM [place] [EOD] Narrative 10/09/2014 3:26 AM CDT EXAMINATION: CT CHEST WITH CONTRAST HISTORY: ??chest pain COMPARISON: ??None. TECHNIQUE: Contrast: ??100 mL Omnipaque 350 right antecubital fossa IV without complication. ??Coronal and sagittal images were reviewed. FINDINGS: ??The heart is normal size. ??There is no pericardial effusion. ??Aorta is unremarkable. ??No lymphadenopathy. The lungs are clear of infiltrate. ??No evidence of pulmonary thromboembolic disease. ??No pleural effusion. ??No pneumothorax. Mild scoliotic curvature the spine. The adrenal glands are normal size. Procedure Note Provider, Sonal, - 08/06/2020 EXAMINATION: CT CHEST WITH CONTRAST HISTORY: chest pain COMPARISON: None. TECHNIQUE: Contrast: 100 mL Omnipaque 350 right antecubital fossa IVwithout complication. Coronal and sagittal images were reviewed. FINDINGS: The heart is normal size. There is no pericardial effusion.Aorta is unremarkable. No lymphadenopathy. The lungs are clear of infiltrate. No evidence of pulmonarythromboembolic disease. No pleural effusion. No pneumothorax. Mild scoliotic curvature the spine. The adrenal glands are normal size. IMPRESSION: no acute findings. THIS IS AN ELECTRONICALLY VERIFIED REPORT 10/09/2014 3:23 AM: eSe Patel M.D. See Patel M.D. RW:pallavi 03:23 AM 03:23 AM [place] [EOD] Yenni Monson MD [facility] CT PROCEDURES Final R esult * (ABNORMAL) D-dimer, quantitative (10/09/2014 1:02 AM CDT) [facility] D-Dimer, Quantitative 0.83(H) 0.00 - 0.50 FEUug/ml Comment: Studies indicate that a D-Dimer level of <0.50 FEUug/ml has a >95% negative predictive value for DVT,DIC,PE and other embolus conditions. ??Levels >0.50 FEUug/ml may be present in a wide variety of conditions and should not be considered diagnostic of any disease state. 10/09/2014 1:02 AM CDT 10/09/2014 1:06 AM CDT Narrative [facility] HISTORICAL RESULTS - 10/09/2014 1:22 AM CDT NEW DRAW Yenni Monson MD LAB BLOOD ORDERABLES Kristi keisha Result [facility] HISTORICAL RESULTS * (ABNORMAL) TNI with LIPID PANEL (10/08/2014 9:26 PM CDT) Troponin I < 0.300 0.000 - 0.300 ng/mL 10/08/2014 10:09 PM [facility] HISTORICAL RESULTS Comment: Reference using LUIZ Chemiluminescence ? Negative: Repeat in 4-6 hours as indicated. Triglycerides 102 0 - 199 mg/dL 10/08/2014 10:29 PM [facility] HISTORICAL RESULTS Comment:12 hr pc highly margarita mmended for Triglyceride Cholesterol 212(H) 0 - 199 mg/dL 10/08/2014 10:29 PM [facility] HISTORICAL RESULTS Comment: Borderline: ??200-239 High Risk: ?? >239 HDL Cholesterol 64(H) 40 - 60 mg/dL 10/08/2014 10:29 PM [facility] HISTORICAL RESULTS Comment: Major Risk ?< 40 mg/dL Moderate Risk ?40-60 mg/dL Negative Risk ?? > 60 mg/dL LDL Cholesterol, Calc 128 0 - 130 mg/dL 10/08/2014 10:29 PM [facility] HISTORICAL RESULTS Comment:High Risk > 159 mg/d L Cholesterol/HDL Ratio 3.3 10/08/2014 10:29 PM [facility] HISTORICAL RESULTS Comment: Cholesterol / HDL Ratio 3.5:1 or less is desirable. Cholesterol / HDL Ratio greater than 5:1 is considered higher risk for developing heart disease. 10/08/2014 9:26 PM CDT 10/08/2014 9:45 PM CDT Magda HERNANDEZ LAB BLOOD ORDERABLES Final Re sult Performing Organization Address [facility] Co de Phone Number [facility] HISTORICAL RESULTS * Lipase (10/08/2014 9:26 PM CDT) Lipase 19 13 - 60 U/L 10/08/2014 9:26 PM CDT 10/08/2014 9:45 PM CDT Magda Meek PA LAB BLOOD ORDERABLES Final Re sult Performing Organization Address [facility] de Phone Number [facility] HISTORICAL RESULTS * (ABNORMAL) Comprehensive metabolic panel (10/08/2014 9:26 PM CDT) Sodium 138 135 - 145 mmol/L 10/08/2014 10:15 PM [facility] HISTORICAL RESULTS Potassium 3.3 3.3 - 5.1 mmol/L 10/08/2014 10:15 PM [facility] HISTORICAL RESULTS Chloride 98 96 - 108 mmol/L 10/08/2014 10:15 PM [facility] HISTORICAL RESULTS Carbon Dioxide 24 22 - 32 mmol/L 10/08/2014 10:29 PM [facility] HISTORICAL RESULTS Anion Gap 16 7 - 16 10/08/2014 10:29 PM [facility] HISTORICAL RESULTS Glucose 110(H) 70 - 100 mg/dL 10/08/2014 10:29 PM [facility] HISTORICAL RESULTS BUN 6 6 - 20 mg/dL 10/08/2014 10:29 PM [facility] HISTORICAL RESULTS Creatinine 0.8 0.5 - 1.1 mg/dL 10/08/2014 10:29 PM [facility] HISTORICAL RESULTS Kidney Disease Stage > 90 mL/MIN 10/08/2014 10:29 PM [facility] HISTORICAL RESULTS Comment: NOTE; ??The GFR is an estimated value using the creatinine, sex, age, and race of the patient. THE ESTIMATED GFR IS VALIDATED FOR AGES 18-70 YEARS STAGE ?mL/Min ?DESCRIPTION ??1 ?90 mL/min or more ?Normal or elevated GFR ??2 ? 60-89 mL/min ?Mildly decreased GFR ??3 ? 30-59 mL/min ?Moderately decreased GFR ??4 ? 15-29 mL/min ?Severely decreased GFR ??5 ? <15 mL/min ? Kidney failure or on dialysis @ Calcium 9.4 8.6 - 10.0 mg/dL 10/08/2014 10:29 PM [facility] HISTORICAL RESULTS Total Protein 7.6 6.4 - 8.3 g/dL 10/08/2014 10:29 PM [facility] HISTORICAL RESULTS Albumin 4.3 3.5 - 5.2 g/dL 10/08/2014 10:15 PM [facility] HISTORICAL RESULTS Globulin 3.3 2.3 - 3.5 gm/dL 10/08/2014 10:29 PM [facility] HISTORICAL RESULTS Albumin/Globulin Ratio 1.3 1.1 - 1.8 10/08/2014 10:29 PM [facility] HISTORICAL RESULTS Total Bilirubin 0.3 0.0 - 1.2 mg/dL 10/08/2014 10:29 PM [facility] HISTORICAL RESULTS AST 14 0 - 32 U/L 10/08/2014 10:29 PM [facility] HISTORICAL RESULTS ALT 10 0 - 33 U/L 10/08/2014 10:29 PM [facility] HISTORICAL RESULTS Alkaline Phosphatase 90 35 - 104 U/L 10/08/2014 10:15 PM [facility] HISTORICAL RESULTS 10/08/2014 9:26 PM CDT 10/08/2014 9:45 PM CDT Magda Meek PA LAB BLOOD ORDERABLES Final Re sult [facility] HISTORICAL RESULTS * (ABNORMAL) CBC with auto differential (10/08/2014 9:26 PM CDT) WBC 5.8 4.6 - 10.2 x10 3/ul RBC 4.43 3.76 - 4.80 x10 6/ul Hemoglobin 13.7 11.0 - 15.0 g/dl Hct 40.4 33.0 - 43.0 % MCV 91.2 80.0 - 97.0 fl MCH 30.9 27.0 - 31.2 pg MCHC 33.9 31.8 - 35.4 g/dl RDW 13.3 11.6 - 14.8 % Plt Count 280 124 - 400 x10 3/ul MPV 10.9(H) 7.4 - 10.4 fl Differential Method AUTOMATED DIFF --------- -- Neut % 67.3 37.0 - 85.0 % Immature Gran % 0.2 0.0 - 3.0 % Lymph % 26.6 5.0 - 45.0 % [place] % 4.5 3.0 - 15.0 % Eos % 0.9 0.0 - 7.0 % Baso % 0.5 0.0 - 2.0 % ABSOLUTE COUNTS ABSOLUTE COUNTS --------- -- Absolute Neuts (auto) 3.9 1.7 - 8.7 x10 3/ul Immature Gran # 0.0 0.0 - 0.3 x10 3/ul Absolute Lymphs (auto) 1.6 0.2 - 4.6 x10 3/ul Absolute Monos (auto) 0.3 0.1 - 1.5 x10 3/ul Absolute Eos (auto) 0.1 0.0 - 0.7 x10 3/ul Absolute Basos (auto) 0.0 0.0 - 0.2 x10 3/ul 10/08/2014 9:26 PM CDT 10/08/2014 9:45 PM CDT Magda HERNANDEZ LAB BLOOD ORDERABLES Final Re sult [facility] HISTORICAL RESULTS * (ABNORMAL) Amylase (10/08/2014 9:26 PM CDT) Amylase 111(H) 28 - 100 U/L 10/08/2014 9:26 PM CDT 10/08/2014 9:45 PM CDT us Magda Meek PA LAB BLOOD ORDERABLES Final Re sult [facility] HISTORICAL RESULTS * UA with Culture Reflex (10/08/2014 9:15 PM CDT) Ur Collection Type CLEAN CATCH Ur Culture Indicated? C&S NOT INDICATED Urine Color STRAW YELLOW Urine Clarity CLEAR CLEAR 10/08/2014 9:35 PM [facility] HISTORICAL RESULTS Urine Glucose (UA) NORMAL NORMAL mg/dL 10/08/2014 9:35 PM [facility] HISTORICAL RESULTS Urine Bilirubin NEGATIVE NEGATIVE mg/dl 10/08/2014 9:35 PM [facility] HISTORICAL RESULTS Urine Ketones NEGATIVE NEGATIVE mg/dL Ur Specific [place] 1.009 1.005 - 1.025 Urine Blood NEGATIVE NEGATIVE mg/dl 10/08/2014 9:35 PM [facility] HISTORICAL RESULTS Urine pH 8.0 5.0 - 8.0 10/08/2014 9:35 PM [facility] HISTORICAL RESULTS Urine Protein NEGATIVE NEGATIVE mg/dL 10/08/2014 9:35 PM [facility] HISTORICAL RESULTS Urine Urobilinogen NORMAL NORMAL mg/dL 10/08/2014 9:35 PM [facility] HISTORICAL RESULTS Urine Nitrite NEGATIVE NEGATIVE 10/08/2014 9:35 PM [facility] HISTORICAL RESULTS Ur Leukocyte Esterase NEGATIVE NEGATIVE Vasile/ul 10/08/2014 9:35 PM [facility] HISTORICAL RESULTS Ur Microscopic Review Not Indicated 10/08/2014 9:35 PM [facility] HISTORICAL RESULTS 10/08/2014 9:15 PM CDT 10/08/2014 9:25 PM CDT us Magda HERNANDEZ LAB URINE ORDERABLES Final Re sult [facility] Desean [facility] HISTORICAL RESULTS * XR Chest Pa Lateral 2 Views (10/08/2014 12:00 AM CDT) Anatomical Region Laterality Modality Body, Chest N/A Radiographic Ladan ging 10/08/2014 Impressions 10/08/2014 10:39 PM CDT ?? No definite acute cardiopulmonary process. ??See above. THIS IS AN ELECTRONICALLY VERIFIED REPORT 10/08/2014 10:36 PM: ??Saritha Bee M.D. Alma Rider:rodolfo 10:36 PM 10:36 PM [facility] [EOD] Narrative 10/08/2014 10:39 PM CDT EXAMINATION: ??CHEST HISTORY: ??abdominal pain TECHNIQUE: ??PA and lateral views COMPARISON: ??02/23/2005 FINDINGS: ??There is no definitive pneumonic consolidation, pleural fluid or pneumothorax. The cardiomediastinal silhouette is unremarkable. There is no pulmonary vascular congestion. The osseous structures are intact. Procedure Note Provider, MD Sonal - 08/06/2020 EXAMINATION: CHEST HISTORY: abdominal pain TECHNIQUE: PA and lateral views COMPARISON: 02/23/2005 FINDINGS: There is no definitive pneumonic consolidation, pleural fluidor pneumothorax. The cardiomediastinal silhouette is unremarkable. There isno pulmonary vascular congestion. The osseous structures are intact. IMPRESSION: No definite acute cardiopulmonary process. See above. THIS IS AN ELECTRONICALLY VERIFIED REPORT 10/08/2014 10:36 PM: Saritha Bee M.D. Alma Rider:rodolfo 10:36 PM 10:36 PM [facility] [EOD] Magda Meek PA IMG XR PROCEDURES Final Resul t documented in this encounter Visit Diagnoses Diagnosis Abdominal pain Abdominal pain, unspecified site Chest pain Unspecified chest pain documented in this encounter
--- OUTSIDE RECORDS SUMMARY | 2024-04-01 05:54 | XMS_ITS | Encounter Summary ---
Author Organization [facility] Healthcare Address [address] [place] [address] Care Team Providers Care Laborer Cheesemaking Name Role Phone Unavailable Primary Care Provider Unavailabl e Encounter Details Date Type Department Care Team (Latest Contact Info) Description 11/19/2015 2:46 PM CDT - 11/19/2015 6:49 PM CDT Hospital Encounter [facility] Fernando Fiore MD [address] [facility] [place] [address] Nausea with vomiting; Cough; Other chest pain; Right lower quadrant pain Social History Tobacco Use Types Packs/Day Years Used Date Smoking Tobacco: Never Assessed Comments Unknown Sex and Gender Information Value Date Recorded Sex Assigned at Female 11/16/2022 3:54 PM CDT 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 Gender Identity Female 11/16/2022 3:54 PM CDT Sexual Orientation Straight 11/16/2022 3: 54 PM CDT documented as of this encounter Last Filed Vital Signs Vital Sign Reading Time Taken Comments Blood Pressure 108/76 11/19/2015 2:56 PM CDT Pulse 98 11/19/2015 2:56 PM CDT Temperature 37.3 ??C (99.1 ??F) 11/19/2015 2:56 PM CD T Respiratory Rate - - Oxygen Saturation 100% 11/19/2015 2:56 PM CDT Inhaled Oxygen Concentration - - Weight 61.2 kg (135 lb) 11/19/2015 2:56 PM CDT Height 157.5 cm (5' 2 ) 11/19/2015 2:56 PM CDT Body Mass Index 24.69 11/19/2015 2:56 PM CDT documented in this encounter Plan of Treatment Not on file documented as of this encounter Procedures Procedure Name Priority Date/Time Associated Diagnosis Comments URINALYSIS Routine 11/19/2015 4:13 PM CDT CBC WITH AUTO DIFFERENTIAL Routine 11/19/2015 3:13 PM CDT TROPONIN I Routine 11/19/2015 3:13 PM CDT LIPASE Routine 11/19/2015 3:13 PM CDT COMPREHENSIVE METABOLIC PANEL Routine 11/19/2015 3:[address] ABDOMEN PELVIS W CONTRAST Routine 11/19/2015 12:00 AM CDT XR CHEST PA LATERAL 2 VIEWS Routine 11/19/2015 12:00 AM CDT documented in this encounter Results * (ABNORMAL) Urinalysis (11/19/2015 4:13 PM CDT) Ur Collection Type CLEAN CATCH Urine Color YELLOW YELLOW Urine Clarity CLEAR CLEAR Urine Glucose (UA) NORMAL NORMAL mg/dL Urine Bilirubin NEGATIVE NEGATIVE mg/dl Urine Ketones 80(H) NEGATIVE mg/dL Ur Specific [place] 1.023 1.005 - 1.025 Urine Blood NEGATIVE NEGATIVE mg/dl Urine pH 6.0 5.0 - 8.0 11/19/2015 4:29 PM CDT [facility] HISTORICAL RESULTS Urine Protein NEGATIVE NEGATIVE mg/dL 11/19/2015 4:29 PM CDT [facility] HISTORICAL RESULTS Urine Urobilinogen NORMAL NORMAL mg/dL 11/19/2015 4:29 PM CDT [facility] HISTORICAL RESULTS Urine Nitrite NEGATIVE NEGATIVE 11/19/2015 4:29 PM CDT [facility] HISTORICAL RESULTS Ur Leukocyte Esterase NEGATIVE NEGATIVE Vasile/ul 11/19/2015 4:29 PM CDT [facility] HISTORICAL RESULTS Ur Microscopic Review Not Indicated 11/19/2015 4:29 PM CDT [facility] HISTORICAL RESULTS 11/19/2015 4:13 PM CDT 11/19/2015 4:18 PM CDT Marla Dockery LAB URINE ORDERABLES Final Resul t Performing Organization Address [facility] de Phone Number [facility] HISTORICAL RESULTS * Troponin I (11/19/2015 3:13 PM CDT) Troponin I < 0.300 0.000 - 0.300 ng/mL 11/19/2015 3:46 PM CDT [facility] HISTORICAL RESULTS Comment: Reference using LUIZ Chemiluminescence ? Negative: Repeat in 4-6 hours as indicated. 11/19/2015 3:13 PM CDT 11/19/2015 3:15 PM CDT Marla Dockery LAB BLOOD ORDERABLES Final Resul t Performing Organization Address [facility] de Phone Number [facility] HISTORICAL RESULTS * Lipase (11/19/2015 3:13 PM CDT) Lipase 16 13 - 60 U/L 11/19/2015 3:45 PM CDT [facility] HISTORICAL RESULTS 11/19/2015 3:13 PM CDT 11/19/2015 3:15 PM CDT Marla Dockery LAB BLOOD ORDERABLES Final Resul t Performing Organization Address [facility] de Phone Number [facility] HISTORICAL RESULTS * (ABNORMAL) Comprehensive metabolic panel (11/19/2015 3:13 PM CDT) [facility] Sodium 137 135 - 145 mmol/L 11/19/2015 3:45 PM CDT [facility] HISTORICAL RESULTS Potassium 3.2(L) 3.3 - 5.1 mmol/L 11/19/2015 3:45 PM CDT [facility] HISTORICAL RESULTS Chloride 96 96 - 108 mmol/L 11/19/2015 3:45 PM T [facility] HISTORICAL RESULTS Carbon Dioxide 26 22 - 32 mmol/L 11/19/2015 3:45 PM T [facility] HISTORICAL RESULTS Anion Gap 15 7 - 16 11/19/2015 3:45 PM T [facility] HISTORICAL RESULTS Glucose 83 70 - 100 mg/dL 11/19/2015 3:45 PM T [facility] HISTORICAL RESULTS BUN 10 6 - 20 mg/dL 11/19/2015 3:45 PM T [facility] HISTORICAL RESULTS Creatinine 0.8 0.5 - 1.1 mg/dL 11/19/2015 3:45 PM T [facility] HISTORICAL RESULTS Comment: NOTE: Estimated GFR (Cockroft-Gault) will NOT be calculated unless patient Height and Weight were entered. Also, Kidney Disease Stage (GFR) and Estimated GFR (Cockroft-Gault) will NOT be calculated if Creatinine result is <0.2. Kidney Disease Stage > 90 mL/MIN 11/19/2015 3:45 PM T [facility] HISTORICAL RESULTS Comment: NOTE; ??The GFR [...] or on dialysis @ Est GFR (Cockcroft-G) 85 ml/MIN 11/19/2015 3:45 PM T [facility] HISTORICAL RESULTS Calcium 9.0 8.6 - 10.0 mg/dL 11/19/2015 3:45 PM T [facility] HISTORICAL RESULTS Total Protein 7.7 6.4 - 8.3 g/dL 11/19/2015 3:45 PM T [facility] HISTORICAL RESULTS Albumin 4.4 3.5 - 5.2 g/dL 11/19/2015 3:45 PM T [facility] HISTORICAL RESULTS Globulin 3.3 2.3 - 3.5 gm/dL 11/19/2015 3:45 PM T [facility] HISTORICAL RESULTS Albumin/Globulin Ratio 1.3 1.1 - 1.8 11/19/2015 3:45 PM T [facility] HISTORICAL RESULTS Total Bilirubin 0.5 0.0 - 1.2 mg/dL 11/19/2015 3:45 PM T [facility] HISTORICAL RESULTS AST 18 0 - 32 U/L 11/19/2015 3:45 PM T [facility] HISTORICAL RESULTS ALT 19 0 - 33 U/L Alkaline Phosphatase 98 35 - 104 U/L 11/19/2015 3:13 PM CDT 11/19/2015 3:15 PM CDT us Marla Dockery LAB BLOOD ORDERABLES Final Resul t [facility] HISTORICAL RESULTS * (ABNORMAL) CBC with auto differential (11/19/2015 3:13 PM CDT) WBC 14.3(H) 4.6 - 10.2 x10 3/ul 11/19/2015 3:18 PM CDT [facility] HISTORICAL RESULTS RBC 4.66 3.76 - 4.80 x10 6/ul 11/19/2015 3:18 PM CDT [facility] HISTORICAL RESULTS Hemoglobin 14.0 11.0 - 15.0 g/dl 11/19/2015 3:18 PM CDT [facility] HISTORICAL RESULTS Hct 40.5 33.0 - 43.0 % 11/19/2015 3:18 PM CDT [facility] HISTORICAL RESULTS MCV 86.9 80.0 - 97.0 fl 11/19/2015 3:18 PM CDT [facility] HISTORICAL RESULTS MCH 30.0 27.0 - 31.2 pg 11/19/2015 3:18 PM CDT [facility] HISTORICAL RESULTS MCHC 34.6 31.8 - 35.4 g/dl 11/19/2015 3:18 PM CDT [facility] HISTORICAL RESULTS RDW 14.1 11.6 - 14.8 % Plt Count 267 124 - 400 x10 3/ul MPV 10.8(H) 7.4 - 10.4 fl Neut % 78.8 37.0 - 85.0 % Immature Gran % 0.5 0.0 - 3.0 % Lymph % 14.9 5.0 - 45.0 % 11/19/2015 3:18 PM CDT [facility] HISTORICAL RESULTS Steele % 4.3 3.0 - 15.0 % 11/19/2015 3:18 PM CDT [facility] HISTORICAL RESULTS Eos % 1.2 0.0 - 7.0 % 11/19/2015 3:18 PM CDT [facility] HISTORICAL RESULTS Baso % 0.3 0.0 - 2.0 % Absolute Neuts (auto) 11.3(H) 1.7 - 8.7 x10 3/ul 11/19/2015 3:18 PM CDT [facility] HISTORICAL RESULTS Immature Gran # 0.1 0.0 - 0.3 x10 3/ul 11/19/2015 3:18 PM CDT [facility] HISTORICAL RESULTS Absolute Lymphs (auto) 2.1 0.2 - 4.6 x10 3/ul 11/19/2015 3:18 PM CDT [facility] HISTORICAL RESULTS Absolute Monos (auto) 0.6 0.1 - 1.5 x10 3/ul 11/19/2015 3:18 PM CDT [facility] HISTORICAL RESULTS Absolute Eos (auto) 0.2 0.0 - 0.7 x10 3/ul 11/19/2015 3:18 PM CDT [facility] HISTORICAL RESULTS Absolute Basos (auto) 0.0 0.0 - 0.2 x10 3/ul 11/19/2015 3:18 PM CDT [facility] HISTORICAL RESULTS 11/19/2015 3:13 PM CDT 11/19/2015 3:15 PM CDT us Marla Tamez Nahed LAB BLOOD ORDERABLES Final Resul t [facility] HISTORICAL RESULTS * XR Chest Pa Lateral 2 Views (11/19/2015 12:00 AM CDT) Anatomical Region Laterality Modality Body, Chest N/A Radiographic Ladan ging 11/19/2015 Impressions 11/19/2015 5:03 PM CDT ?? 1. ??No acute infiltrate. THIS IS AN ELECTRONICALLY VERIFIED REPORT 11/19/2015 4:59 PM: ??Helio Mas M.D. ?? Helio Mas M.D. MJ:sudhir 04:59 PM 04:59 PM [facility] [EOD] Narrative 11/19/2015 5:03 PM CDT EXAMINATION: ??PA and lateral chest HISTORY: ??Cough yesterday with pain beginning this morning. COMPARISON: ??10/08/2014 FINDINGS: Chest two-view. Normal cardiomediastinal silhouette and pulmonary vasculature. ??No focal infiltrate or effusion. ??Osseous structures demonstrate no focal abnormality Procedure Note Provider, MD Sonal - 08/06/2020 EXAMINATION: PA and lateral chest HISTORY: Cough yesterday with pain beginning this morning. COMPARISON: 10/08/2014 FINDINGS: Chest two-view. Normal cardiomediastinal silhouette andpulmonary vasculature. No focal infiltrate or effusion. Osseous structuresdemonstrate no focal abnormality IMPRESSION: 1. No acute infiltrate. THIS IS AN ELECTRONICALLY VERIFIED REPORT 11/19/2015 4:59 PM: Helio Mas M.D. Helio Mas M.D. MJ:sudhir 04:59 PM 04:59 PM [facility] [EOD] Marla Dockery IMG XR PROCEDURES Final Result * CT Abdomen Pelvis W Contrast (11/19/2015 12:00 AM CDT) Anatomical Region Laterality Modality Body N/A Computed Tomogra phy 11/19/2015 Impressions 11/19/2015 5:08 PM CDT ?? 1. ??No CT evidence for an acute intra-abdominal or pelvic process. 2. ??Pedunculated uterine fibroids, 1 of which extends into the right adnexa. ?? Dominant follicle or cyst within the left adnexa. 3. ??Fat-containing periumbilical hernia. THIS IS AN ELECTRONICALLY VERIFIED REPORT 11/19/2015 5:05 PM: ??Castro Zuluaga D.O. ?? Castro Zuluaga D.O. :as 05:05 PM 05:05 PM [facility] [EOD] Narrative 11/19/2015 5:08 PM CDT EXAMINATION: ??CT OF THE ABDOMEN and PELVIS with IV contrast HISTORY: ??Right lower quadrant abdominal pain. ??Fever and vomiting beginning last night. TECHNIQUE: ??CT of the abdomen and pelvis was performed with IV contrast. ??100 mL Omnipaque 350 was instilled intravenously through the left antecubital vein without complications. Comparison is made to prior CT from 05/30/2013. ABDOMEN: ??No basilar consolidation or pleural effusion. 4 mm hypodensity within the right hepatic lobe has benign features and likely represents a tiny cyst (image 35/149). ??The gallbladder is without radiopaque stones or pericholecystic inflammation. ??The biliary tree, pancreas and spleen are normal. ??No adrenal lesions. ??Renal enhancement is unremarkable. ??There is no nephrolithiasis, hydronephrosis or perinephric edema. ??The aorta is non-aneurysmal. ??There is no adenopathy. ??No ascites or pneumoperitoneum is observed. ??There is no mechanical bowel obstruction. ??Fat-containing periumbilical hernia. PELVIS: ??The cecum and terminal ileum are unremarkable. ??There is a tubular structure emanating from and directly apposed to the caudal margin of the cecum which most likely represents the normal appendix. ??No free fluid. ??The urinary bladder is collapsed. There are 2 exophytic masses arising from the uterine fundus, the first near the midline measuring 2.0 x 1.8 cm. ??The second lesion is to the left of midline and extends into the right adnexa measuring 3.3 x 2.8 cm. ??These both most likely represent pedunculated fibroids. ??There is also a cystic lesion within the left adnexa likely a follicle or dominant cyst measuring 2.5 x 1.7 cm. ??No inguinal hernias. Lumbar alignment and curvature is normal. ??There is no compression fracture or spondylolisthesis no aggressive osteolytic or blastic lesion is identified. Procedure Note Provider, MD Sonal - 08/06/2020 EXAMINATION: CT OF THE ABDOMEN and PELVIS with IV contrast HISTORY: Right lower quadrant abdominal pain. Fever and vomitingbeginning last night. TECHNIQUE: CT of the abdomen and pelvis was performed with IV contrast.100 mL Omnipaque 350 was instilled intravenously through the left antecubitalvein without complications. Comparison is made to prior CT from 05/30/2013. ABDOMEN: No basilar consolidation or pleural effusion. 4 mm hypodensity within the right hepatic lobe has benign features andlikely represents a tiny cyst (image 35/149). The gallbladder is withoutradiopaque stones or pericholecystic inflammation. The biliary tree, pancreas andspleen are normal. No adrenal lesions. Renal enhancement is unremarkable.There is no nephrolithiasis, hydronephrosis or perinephric edema. The aorta is non-aneurysmal. There is no adenopathy. No ascites or pneumoperitoneumis observed. There is no mechanical bowel obstruction. Fat-containing periumbilical hernia. PELVIS: The cecum and terminal ileum are unremarkable. There is atubular structure emanating from and directly apposed to the caudal margin of the cecum which most likely represents the normal appendix. No free fluid.The urinary bladder is collapsed. There are 2 exophytic masses arising from the uterine fundus, the firstnear the midline measuring 2.0 x 1.8 cm. The second lesion is to the left of midline and extends into the right adnexa measuring 3.3 x 2.8 cm. Theseboth most likely represent pedunculated fibroids. There is also a cysticlesion within the left adnexa likely a follicle or dominant cyst measuring 2.5 x1.7 cm. No inguinal hernias. Lumbar alignment and curvature is normal. There is no compressionfracture or spondylolisthesis no aggressive osteolytic or blastic lesion isidentified. IMPRESSION: 1. No CT evidence for an acute intra-abdominal or pelvic process. 2. Pedunculated uterine fibroids, 1 of which extends into the rightadnexa. Dominant follicle or cyst within the left adnexa. 3. Fat-containing periumbilical hernia. THIS IS AN ELECTRONICALLY VERIFIED REPORT 11/19/2015 5:05 PM: Castro Zuluaga D.O. Castro Zuluaga D.O. :as 05:05 PM 05:05 PM [facility] [EOD] Gloria Pedro PULP REFINER OPERATOR IMG CT PROCEDURES Final Result documented in this encounter Visit Diagnoses Diagnosis Nausea with vomiting Cough Other chest pain Right lower quadrant pain documented in this encounter
--- OUTSIDE RECORDS SUMMARY | 2024-04-01 05:54 | XMS_ITS | Encounter Summary ---
Author Organization [facility] Healthcare Address [address] [place] [address] Care Team Providers Care Pad Extraction Tender Name Role Phone Unavailable Primary Care Provider Unavailabl e Encounter Details Date Type Department Care Team (Latest Contact Info) Description 08/10/2012 1:44 PM CDT Hospital Encounter [facility] Tejinder Del Angel MD [address] [place], [place] [id number] Other specified symptom associated with female genital organs Social History Tobacco Use Types Packs/Day Years Used Date Smoking Tobacco: Never Assessed Comments Unknown Sex and Gender Information Value Date Recorded Sex Assigned at Female 11/16/2022 3:54 PM CDT 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 The mass is seen arising from the right fundal aspect of the uterus is compatible with a fibroid. ??The examination is otherwise essentially unremarkable. THIS IS AN ELECTRONICALLY VERIFIED REPORT 08/10/2012 4:13 PM: ??Tejinder Lang M.D. Tejinder Lang M.D. AT:at 04:13 PM 04:13 PM [EOD] Narrative 08/10/2012 4:17 PM CDT EXAMINATION: TRANSABDOMINAL AND TRANSVAGINAL ULTRASOUND OF THE PELVIS DATE: ??08/10/2012 COMPARISON: ??CT 08/07/2012 HISTORY: ??Pelvic mass, multi site abdominal pain, mid abdominal pain, diarrhea, nausea on 08/07/2012 TECHNIQUE: Multiple sonographic images of the pelvis were obtained both transabdominally and transvaginally. FINDINGS: ?? The uterus measures 8.7 x 6.3 x 4.6 cm. The uterus demonstrates a 2.3 x 2 x 1.7 cm exophytic heterogeneous echotexture fibroid arising from the right aspect of the uterine fundus. ??The endometrial stripe is not significantly thickened. The right ovary is visualized and measures 2.1 x 2.4 x 1.3 cm. ??The left ovary is visualized and measures 2.3 x 2.1 x 1.3 cm. ??Both ovaries demonstrate a normal appearance. Arterial flow is documented in both ovaries with color and spectral Doppler imaging. There is a trace amount of free pelvic fluid. Procedure Note Provider, MD Sonal - 08/06/2020 EXAMINATION: TRANSABDOMINAL AND TRANSVAGINAL ULTRASOUND OF THE PELVIS DATE: 08/10/2012 COMPARISON: CT 08/07/2012 HISTORY: Pelvic mass, multi site abdominal pain, mid abdominal pain, diarrhea, nausea on 08/07/2012 TECHNIQUE: Multiple sonographic images of the pelvis were obtained both transabdominally and transvaginally. FINDINGS: The uterus measures 8.7 x 6.3 x 4.6 cm. The uterus demonstrates a 2.3 x 2x 1.7 cm exophytic heterogeneous echotexture fibroid arising from the right aspect of the uterine fundus. The endometrial stripe is not significantly thickened. The right ovary is visualized and measures 2.1 x 2.4 x 1.3 cm. The leftovary is visualized and measures 2.3 x 2.1 x 1.3 cm. Both ovaries demonstrate a normal appearance. Arterial flow is documented in both ovaries with colorand spectral Doppler imaging. There is a trace amount of free pelvic fluid. IMPRESSION: The mass is seen arising from the right fundal aspect of the uterus is compatible with a fibroid. The examination is otherwise essentially unremarkable. THIS IS AN ELECTRONICALLY VERIFIED REPORT 08/10/2012 4:13 PM: Tejinder Lang M.D. Tejinder Lang M.D. AT:at 04:13 PM 04:13 PM [EOD] us Tejinder Lang MD IMG US PROCEDURES Final Re sult documented in this encounter Visit Diagnoses Diagnosis Other specified symptom associated with female genital organs documented in this encounter
--- OUTSIDE RECORDS SUMMARY | 2024-04-01 05:54 | XMS_ITS | Encounter Summary ---
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 Name Role Phone Unavailable Primary Care Provider Unavailabl e Encounter Details Date Type Department Care Team (Late st Contact Info) Description 08/07/2012 4:34 PM CDT - 08/07/2012 8:30 PM CDT Hospital Encounter [facility] Percy Willis MD [address] [facility] [address] [place] [address] Abdominal pain; Urinary tract infection; Intramural leiomyoma of uterus Social History Tobacco Use Types Packs/Day Years Used Date Smoking Tobacco: Never Assessed Comments Unknown Sex and Gender Information Value Date Recorded Sex Assigned at Female 11/16/2022 3:54 PM CDT 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 Gender Identity Female 11/16/2022 3:54 PM CDT Sexual Orientation Straight 11/16/2022 3: 54 PM CDT documented as of this encounter Last Filed Vital Signs Vital Sign Reading Time Taken Comments Blood Pressure 142/77 08/07/2012 4:41 PM CDT Pulse 90 08/07/2012 4:41 PM CDT Temperature 36.9 ??C (98.5 ??F) 08/07/2012 4:41 PM CD T Respiratory Rate - - Oxygen Saturation 97% 08/07/2012 4:41 PM CDT Inhaled Oxygen Concentration - - Weight 56.7 kg (125 lb) 08/07/2012 4:41 PM CDT Height 157.5 cm (5' 2 ) 08/07/2012 4:41 PM CDT Body Mass Index 22.86 08/07/2012 4:41 PM CDT documented in this encounter Plan of Treatment Not on file documented as of this encounter Procedures Procedure Name Priority Date/Time Associated Diagnosis Comments MICROBIOLOGY SPECIMEN REPORT (CONVERTED) Routine 08/07/2012 6:45 PM CDT URINALYSIS AND REFLEX TO MICROSCOPIC AND CULTURE Routine 08/07/2012 6:45 PM CDT CBC WITH AUTO DIFFERENTIAL Routine 08/07/2012 5:40 PM CDT LIPASE Routine 08/07/2012 5:40 PM CDT AMYLASE Routine 08/07/2012 5:40 PM CDT COMPREHENSIVE METABOLIC PANEL Routine 08/07/2012 5:[address] ABDOMEN PELVIS W CONTRAST Routine 08/07/2012 12:00 AM CDT documented in this encounter Results * Microbiology Specimen Report (Converted) (08/07/2012 6:45 PM CDT) 08/07/2012 6:45 PM CDT 08/07/2012 7:[address] [facility] HISTORICAL RESULTS - 08/07/2012 6:45 PM CDT Microbiology Specimen Report (Converted) SPECIMEN [id number] ?? COLLECTED: 2012-08-07 18:45:00 VK ?? REQ#: [id number] REQUESTING DRCynthia Moore APN ?? SOURCE: URINE ?? SP DESC: CLEAN CATC --- PROCEDURE --- ?--- RESULT --- ?? CULTURE URINE ??(Final) ??- ??Performed at [facility] ?* COLONY COUNT: 20,000 CFU/ml ?* MIXED GRAM POSITIVE ORGANISMS ? Nature of growth suggests contamination ? at the time of collection, or a delay in ? transport of specimen to the laboratory. ? Please recollect if clinically indicated. ?? - [facility] ? [address] ? [place] [address] ? Percy Friedman MD Procedure Note 06/11/2018 Microbiology Specimen Report (Converted) SPECIMEN [id number] COLLECTED: 2012-08-07 18:45:00 REQ#:[id number] REQUESTING DR: Cynthia Garcia APN SOURCE: URINE SP DESC: CLEANCATC --- PROCEDURE --- --- RESULT --- CULTURE URINE (Final) - Performed at [facility] * COLONY COUNT: 20,000 CFU/ml * MIXED GRAM POSITIVE ORGANISMS Nature of growth suggests contamination at the time of collection, or a delay in transport of specimen to the laboratory. Please recollect if clinically [place] [address] Percy Friedman MD us Historical Provider LAB BLOOD ORDERABLES Kristi valdes Result [facility] HISTORICAL RESULTS * (ABNORMAL) Urinalysis reflex to microscopic and culture (08/07/2012 6:45 PM CDT) Ur Collection Type CLEAN CATCH Ur Culture Indicated? C&S INDICATED Comment:Culture report to cindy minor. Urine Color STRAW YELLOW Urine Clarity CLEAR CLEAR Urine Glucose (UA) NORMAL NORMAL mg/dL Urine Bilirubin NEGATIVE NEGATIVE mg/dl Urine Ketones NEGATIVE NEGATIVE mg/dL Ur Specific Wil[place] 1.010 1.005 - 1.025 Urine Blood NEGATIVE NEGATIVE mg/dl Urine pH 7.0 5.0 - 8.0 Urine Protein NEGATIVE NEGATIVE mg/dL Urine Urobilinogen 2(H) NORMAL mg/dL Urine Nitrite NEGATIVE NEGATIVE Ur Leukocyte Esterase 25(H) NEGATIVE Vasile/ul Ur Microscopic Review Indicated or Ordered Urine WBC 93 0 - 2 /HPF Urine WBC Clumps Rare /HPF Urine Mucus Rare /LPF Ur Squamous Epith Cells Rare /HPF 08/07/2012 6:45 PM CDT 08/07/2012 7:08 PM CDT Narrative [facility] HISTORICAL RESULTS - 08/07/2012 7:19 PM CDT Collected By JK ?? [phone] ?? us Historical Provider LAB MICROBIOLOGY - GENERA L ORDERABLES Final Result [facility] HISTORICAL RESULTS * Lipase (08/07/2012 5:40 PM CDT) Lipase 23 13 - 60 U/L 08/07/2012 6:04 PM [address] [facility] HISTORICAL RESULTS 08/07/2012 5:40 PM CDT 08/07/2012 5:44 PM CDT us Historical Provider MD LAB BLOOD ORDERABLES Kristi valdes Result [facility] HISTORICAL RESULTS * (ABNORMAL) Comprehensive metabolic panel (08/07/2012 5:40 PM CDT) Sodium 138 135 - 145 mmol/L 08/07/2012 6:04 PM CDT [facility] HISTORICAL RESULTS Potassium 3.2(L) 3.3 - 5.1 mmol/L 08/07/2012 6:04 PM CDT [facility] HISTORICAL RESULTS Chloride 103 96 - 108 mmol/L 08/07/2012 6:04 PM CDT [facility] HISTORICAL RESULTS Carbon Dioxide 25 22 - 32 mmol/L 08/07/2012 6:04 PM CDT [facility] HISTORICAL RESULTS Anion Gap 10 08/07/2012 6:04 PM CDT [facility] HISTORICAL RESULTS Glucose 109 70 - 110 mg/dL 08/07/2012 6:04 PM CDT [facility] HISTORICAL RESULTS BUN 7 6 - 20 mg/dL 08/07/2012 6:04 PM CDT [facility] HISTORICAL RESULTS Creatinine 0.7 0.5 - 1.1 mg/dL 08/07/2012 6:04 PM T [facility] HISTORICAL RESULTS Kidney Disease Stage > 90 mL/MIN 08/07/2012 6:04 PM T [facility] HISTORICAL RESULTS Comment: NOTE; ??The GFR [...] Kidney failure or on dialysis @ Calcium 2.34 2.15 - 2.55 mmol/L 08/07/2012 6:04 PM T [facility] HISTORICAL RESULTS Total Protein 7.5 6.4 - 8.4 g/dL 08/07/2012 6:04 PM T [facility] HISTORICAL RESULTS Albumin 4.3 3.5 - 5.2 g/dL 08/07/2012 6:04 PM T [facility] HISTORICAL RESULTS Globulin 3.2 2.3 - 3.5 gm/dL Albumin/Globulin Ratio 1.3 1.1 - 1.8 08/07/2012 6:04 PM [address] [facility] HISTORICAL RESULTS Total Bilirubin 0.4 0.0 - 1.2 mg/dL AST 13 0 - 32 U/L ALT 16 0 - 31 U/L Alkaline Phosphatase 66 35 - 104 U/L 08/07/2012 5:40 PM CDT 08/07/2012 5:44 PM CDT us Historical Provider LAB BLOOD ORDERABLES Kristi l Result [facility] HISTORICAL RESULTS * (ABNORMAL) CBC with auto differential (08/07/2012 5:40 PM CDT) WBC 5.9 4.6 - 10.2 x10 3/ul 08/07/2012 6:05 PM T [facility] HISTORICAL RESULTS RBC 4.59 3.76 - 4.80 x10 6/ul Hemoglobin 14.0 11.0 - 15.0 g/dl Hct 40.5 33.0 - 43.0 % MCV 88.2 80.0 - 97.0 fl MCH 30.5 27.0 - 31.2 pg MCHC 34.6 31.8 - 35.4 g/dl RDW 13.9 11.6 - 14.8 % Plt Count 310 124 - 400 x10 3/ul MPV 10.8(H) 7.4 - 10.4 fl Differential Method AUTOMATED DIFF --------- -- Neut % 65.2 37.0 - 85.0 % Immature Gran % 0.0 0.0 - 3.0 % Lymph % 28.0 5.0 - 45.0 % Crowley % 5.1 3.0 - 15.0 % Eos % 1.4 0.0 - 7.0 % Baso % 0.3 0.0 - 2.0 % ABSOLUTE COUNTS ABSOLUTE COUNTS --------- -- Absolute Neuts (auto) 3.8 1.7 - 8.7 x10 3/ul Immature Gran # 0.0 0.0 - 0.3 x10 3/ul 08/07/2012 6:05 PM CDT [facility] HISTORICAL RESULTS Absolute Lymphs (auto) 1.6 0.2 - 4.6 x10 3/ul 08/07/2012 6:05 PM CDT [facility] HISTORICAL RESULTS Absolute Monos (auto) 0.3 0.1 - 1.5 x10 3/ul 08/07/2012 6:05 PM CDT [facility] HISTORICAL RESULTS Absolute Eos (auto) 0.1 0.0 - 0.7 x10 3/ul 08/07/2012 6:05 PM CDT [facility] HISTORICAL RESULTS Absolute Basos (auto) 0.0 0.0 - 0.2 x10 3/ul 08/07/2012 6:05 PM CDT [facility] HISTORICAL RESULTS 08/07/2012 5:40 PM CDT 08/07/2012 5:44 PM CDT Historical Provider MD LAB BLOOD ORDERABLES Kristi l Result Performing Organization Address [facility]/ZIP Co de Phone Number [facility] HISTORICAL RESULTS * (ABNORMAL) Amylase (08/07/2012 5:40 PM CDT) Amylase 124(H) 28 - 100 U/L 08/07/2012 6:04 PM CDT [facility] HISTORICAL RESULTS 08/07/2012 5:40 PM CDT 08/07/2012 5:44 PM CDT Historical Provider MD LAB BLOOD ORDERABLES Kristi l Result Performing Organization Address [facility]/ZIP Co de Phone Number [facility] HISTORICAL RESULTS * CT Abdomen Pelvis W Contrast (08/07/2012 12:00 AM CDT) Anatomical Region Laterality Modality Body N/A Computed Tomogra phy 08/07/2012 Impressions 08/07/2012 7:44 PM CDT ?? 1. ??There is engorgement of the vasa recta extending to a loop of small bowel within the central aspect of the pelvis. ??There is an adjacent small amount of free pelvic fluid. ??This could potentially be related to inflammation/enteritis. 2. ??There is a 2 cm homogeneously enhancing mass adjacent to the fundal and right aspect of the uterus. ??This also abuts several loops of small bowel. ?? This most probably represents an exophytic uterine fibroid. ??However, given the history of black stool, anemia, there is the possibility that this could be related to the small bowel. ??Follow-up ultrasound to attempt to confirm origin of the mass from the uterus is recommended. THIS IS AN ELECTRONICALLY VERIFIED REPORT 08/07/2012 7:39 PM: ??Tejinder Lang M.D. Tejinder Lang M.D. AT:at 07:39 PM 07:39 PM [EOD] Narrative 08/07/2012 7:44 PM CDT EXAMINATION: ??CT OF THE ABDOMEN AND PELVIS WITH IV CONTRAST DATE: ??08/07/2012 COMPARISON: ??05/18/2005 HISTORY: ??Multi site abdominal pain, mid abdomen pain, diarrhea, nausea TECHNIQUE: ??CT of the abdomen and pelvis was performed with IV contrast. ??100 mL of Omnipaque 350 was instilled intravenously through the right antecubital fossa without complications. FINDINGS: Images of lung bases are unremarkable. ??Decreased attenuation along the falciform ligament is noted, compatible with focal fatty infiltration. ??The spleen, pancreas, adrenal glands, and gallbladder demonstrate an unremarkable postcontrast CT appearance. ??Both kidneys demonstrate normal postcontrast enhancement. ??The bladder is moderately distended with fluid, and otherwise unremarkable. ??The collecting system is not dilated. ??Incidental note is made of a circumaortic left renal vein. ??The aorta demonstrates normal course and caliber. Evaluation of the intestines is moderately limited in the absence of oral contrast. ??A few diverticuli are seen within the descending colon without evidence of diverticulitis. ??Diastases of the rectus abdominis muscles is noted with a small ventral umbilical hernia. ??The proximal aspect of the appendix is normal within the right lower quadrant. ??The distal aspect is not well seen due to adjacent loops of small bowel. ??There is no evidence of bowel obstruction. ??A small amount of free pelvic fluid is present. ??The uterus demonstrates heterogeneous enhancement. ??A homogeneously enhancing mass is identified abutting the right fundal aspect of the uterus measuring 2 cm. ?? This is new from the previous examination. ??This mass also abuts several bowel loops in the region. ??No discrete tethering of the adjacent bowel loops is identified. ??Bilateral adnexa are grossly unremarkable. ??There is some mild prominence of the vasa recta adjacent to a loop of small bowel within the pelvis with adjacent small amount of free fluid. ??This is best seen from image 101 - image 97 of the axial series. ??The osseous structures are unremarkable. Procedure Note Provider, MD Sonal - 08/06/2020 EXAMINATION: CT OF THE ABDOMEN AND PELVIS WITH IV CONTRAST DATE: 08/07/2012 COMPARISON: 05/18/2005 HISTORY: Multi site abdominal pain, mid abdomen pain, diarrhea, nausea TECHNIQUE: CT of the abdomen and pelvis was performed with IV contrast.100 mL of Omnipaque 350 was instilled intravenously through the rightantecubital fossa without complications. FINDINGS: Images of lung bases are unremarkable. Decreased attenuation along the falciform ligament is noted, compatible with focal fatty infiltration.The spleen, pancreas, adrenal glands, and gallbladder demonstrate anunremarkable postcontrast CT appearance. Both kidneys demonstrate normal postcontrast enhancement. The bladder is moderately distended with fluid, andotherwise unremarkable. The collecting system is not dilated. Incidental note ismade of a circumaortic left renal vein. The aorta demonstrates normal courseand caliber. Evaluation of the intestines is moderately limited in the absence of oral contrast. A few diverticuli are seen within the descending colon without evidence of diverticulitis. Diastases of the rectus abdominis muscles is noted with a small ventral umbilical hernia. The proximal aspect of the appendix is normal within the right lower quadrant. The distal aspect isnot well seen due to adjacent loops of small bowel. There is no evidence ofbowel obstruction. A small amount of free pelvic fluid is present. The uterus demonstrates heterogeneous enhancement. A homogeneously enhancing mass is identified abutting the right fundal aspect of the uterus measuring 2 cm. This is new from the previous examination. This mass also abuts severalbowel loops in the region. No discrete tethering of the adjacent bowel loops is identified. Bilateral adnexa are grossly unremarkable. There is somemild prominence of the vasa recta adjacent to a loop of small bowel within the pelvis with adjacent small amount of free fluid. This is best seen fromimage 101 - image 97 of the axial series. The osseous structures areunremarkable. IMPRESSION: 1. There is engorgement of the vasa recta extending to a loop of smallbowel within the central aspect of the pelvis. There is an adjacent smallamount of free pelvic fluid. This could potentially be related to inflammation/enteritis. 2. There is a 2 cm homogeneously enhancing mass adjacent to the fundaland right aspect of the uterus. This also abuts several loops of small bowel. This most probably represents an exophytic uterine fibroid. However,given the history of black stool, anemia, there is the possibility that thiscould be related to the small bowel. Follow-up ultrasound to attempt to confirm origin of the mass from the uterus is recommended. THIS IS AN ELECTRONICALLY VERIFIED REPORT 08/07/2012 7:39 PM: Tejinder Lang M.D. Tejinder Lang M.D. AT:at 07:39 PM 07:39 PM [EOD] Historical Provider MD KNOTT CT PROCEDURES Final R esult documented in this encounter Visit Diagnoses Diagnosis Abdominal pain Abdominal pain, unspecified site Urinary tract infection Urinary tract infection, site not specified Intramural leiomyoma of uterus documented in this encounter
--- OUTSIDE RECORDS SUMMARY | 2024-04-01 05:54 | XMS_ITS | Encounter Summary ---
Author Organization [facility] Healthcare Address [address] [place] [address] Care Team Providers Care Cartridge Belt Puncher Name Role Phone Supriya Hay Primary Care Provider [phone] Reason for Referral * Diagnostic Imaging (Routine) - Closed Specialty Diagnoses / Procedures Referred By Contac t Referred To Contact Diagnoses Chronic pain of left knee Procedures XR Knee Left 1 or 2 Views Helio Tapia MD [address] [place] [address] DR AV[address]O [address] [place] [address] Phone: tel: fax: [address] [phone] Referral ID Status Reason Start Date Expiration Date Visits Re quested Visits Authorized [id number] Closed 06/17/2020 07/17/2021 1 1 * Diagnostic Imaging (Routine) - Closed Specialty Diagnoses / Procedures Referred By Contac t Referred To Contact Diagnoses Left leg pain Procedures XR Tibia Fibula Left 2 View Helio Tapia MD [address] [place] [address] DR [address] [place] [address] Phone: tel: fax: [address] [phone] Referral ID Status Reason Start Date Expiration Date Visits Re quested Visits Authorized [id number] Closed 06/17/2020 07/17/2021 1 1 Encounter Details Date Type Department Care Team (Late st Contact Info) Description 06/17/2020 1:56 PM CDT Hospital Encounter [facility] Helio Tapia MD [address] [place] [address] Left leg pain; Chronic pain of left knee Social History Tobacco Use Types Packs/Day Years [...] PM CDT 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 Gender Identity Female 11/16/2022 3:54 PM [...] Name Priority Date/Time Associated Diagnosis Comments XR TIBIA FIBULA LEFT 2 VIEWS Schedule Routine, Read Routine (OP Routine) 06/17/2020 2:21 PM CDT Left leg pain XR KNEE LEFT 1 OR 2 VIEWS Schedule Routine, Read Routine (OP Routine) 06/17/2020 1:58 PM CDT Chronic pain of left knee documented in this encounter Results * XR Tibia Fibula Left 2 View (06/17/2020 2:21 PM CDT) Anatomical Region Laterality Modality Lower Extremities, Lower Leg Left Rad iographic Imaging 06/19/2020 12:5 9 PM CDT Narrative 06/19/2020 12:59 PM CDT Patient Name: AZIZA LOCKHART ?Ordering Dr: Helio Tapia MD ?? D.O.B: 1980 ? Exam Date: 06/17/20 ?? 1421 ?? Age: 40 ?Sex: Female ? MR#: [id number] ?? Loc: ? RADIOLOGY REPORT ?? Order #[id number] ?? Radiology ? Tib/Fib LT 2 View [...] 12:59 PM ?? T: ? Report ID: [id number] ?? Reading Location: ??[id number] ? REPORT ELECTRONICALLY SIGNED IN OTHER VENDOR SYSTEM ?? Resulting Agency Comment O Procedure Note Helio Tapia MD - 06/19/2020 Patient Name: AZIZA LOCKHART Aleshia Dr: Helio Tapia MD D.O.B: 1980 Exam Date: 06/17/20 142 Age: 40 Sex: Female MR#: [id number] Loc: RADIOLOGY REPORT Order #[id number] Radiology Tib/Fib LT 2 View Signed EXAM [...] signed by Helio Tapia T: Report ID: [id number] Reading Location: [id number] REPORT ELECTRONICALLY SIGNED IN OTHER VENDOR SYSTEM us Helio Tapia MD IMG XR PROCEDURES Final [...] ?? Age: 40 ?Sex: Female ? MR#: [id number] ?? Loc: ? RADIOLOGY REPORT ?? Order #[id number] ?? Radiology ? Knee LT 1 or [...] 1:08 PM ?? T: ? Report ID: [id number] ?? Reading Location: ??[id number] ? REPORT ELECTRONICALLY SIGNED IN OTHER VENDOR SYSTEM ?? Resulting Agency Comment O Procedure Note Helio Tapia MD - 06/19/2020 Patient Name: JORGE LOCKHARTJOHANA Monk Dr: Helio Tapia MD D.O.B: 1980 Exam Date: 06/17/20 1358 Age: 40 Sex: Female MR#: [id number] Loc: RADIOLOGY REPORT Order #[id number] Radiology Knee LT 1 or 2 View [...] signed by Helio Tapia T: Report ID: [id number] Reading Location: [place] [address] REPORT ELECTRONICALLY SIGNED IN OTHER VENDOR SYSTEM Helio Tapia MD IMG XR PROCEDURES Final Result documented in this encounter Visit Diagnoses Diagnosis Left leg pain Pain in soft tissues of limb Chronic pain of left knee documented in this encounter Care Teams Cartridge Belt Puncher Relationship Specialty Start Date End Date Supriya Hay PA [address] [facility] [address] [place] [address] PCP - General Internal Medicine 02/21/20 documented as of this encounter
--- OUTSIDE RECORDS SUMMARY | 2024-04-01 05:54 | XMS_ITS | Encounter Summary ---
Author Organization [facility] Medical Group Address [address] [facility] [address] [place] [id number] Care Team Providers Care Power House Engineer Name Role Phone Supriya Hay Primary Care Provider [phone] Reason for Visit * Reason Comments Abdominal Pain Migraine Encounter Details Date Type Department Care Team (Late st Contact Info) Description 02/28/2020 2:15 PM BACK END DEVELOPER Office Visit [facility] Medical [facility] Family Medicine [address] [facility] [address] [place] [address] Supriya Hay PA [address] [facility] [address] [place] [address] Migraine without aura and without status migrainosus, not intractable (Primary Dx); Diabetes mellitus screening; Lipid screening; Other fatigue; Obesity (BMI 30-39.9); Need for immunization against influenza; BMI 31.0-31.9,adult; Chronic midline low back pain without sciatica Social History Tobacco Use Types Packs/Day Years Used Date Smoking Tobacco: Never Smokeless Tobacco: Never Alcohol Use Standard Drinks/Week Comments Never 0 (1 standard drink = 0.6 oz pur e alcohol) AUDIT-C Answer Date Recorded Q1: How often do you have a drink containing alc ohol? Never 02/28/2020 Average Number of Drinks Not on file 020 Frequency of Binge Drinking Not on file 11/2019 PHQ-2 Answer Date Recorded PHQ-2 Total Score (If total score is 3 or more points, staff should administer the PHQ-9) 0 02/28/2020 Comments Unknown Sex and Gender Information Value Date Recorded Sex Assigned at Female 11/16/2022 3:54 PM CDT Legal Sex Female 12:02 AM BACK END DEVELOPER Gender Identity Female 11/16/2022 3:54 PM CDT Sexual Orientation Straight 11/16/2022 3: 54 PM CDT documented as of this encounter Last Filed Vital Signs Vital Sign Reading Time Taken Comments Blood Pressure 100/70 02/28/2020 2:20 PM BACK END DEVELOPER Pulse 78 02/28/2020 2:20 PM BACK END DEVELOPER Temperature 36.4 ??C (97.5 ??F) 02/28/2020 2:20 PM CS T Respiratory Rate - - Oxygen Saturation 98% 02/28/2020 2:20 PM BACK END DEVELOPER Inhaled Oxygen Concentration - - Weight 77.2 kg (170 lb 4.8 oz) 02/28/2020 2:20 P M BACK END DEVELOPER Height 156 cm (5' 1.42 ) 02/28/2020 2:20 PM BACK END DEVELOPER Body Mass Index 31.74 02/28/2020 2:20 PM BACK END DEVELOPER documented in this encounter Ordered Prescriptions Prescription Sig Dispense Quantity Refills Last Filled Start Date End Date rizatriptan (MAXALT) 10 mg tabletIndications: Migraine Take 1 tablet (10 mg total) by mouth once as needed for migraine May repeat in 2 hours if unresolved. Do not exceed 30 mg in 24 hours. 9 tablet 1 02/28/2020 1 documented in this encounter Progress Notes * Supriya Hay PA - 02/28/2020 2:15 PM CST Images from the original note were not included. Subjective/Objective Patient ID: Aziza Lockhart is a 39 y.o. female. Chief Complaint Abdominal Pain and Migraine HPI Patient presents to establish care. Previous provider was in [place]. I have bad migraines and stomach problems . Has been seeing Dr. Winchester for years. Has appointment with him next week. Has had multiple scopes/workup. She states she has IBS/bacteria in the stomach Complains of months history of VALDEZ. Frontal VALDEZ around the top of the head and to the ears. Feels a shocking pain . Having symptoms every 1-2 days. Can't identify triggering factors. Will wake her up and will have to lay there to go to sleep Will have nausea associated at times. Photophobia. Not affected by sleep. 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 Patient appetite is good -- she is gaining weight and is concerned about that . Using Excedrin Migraine when bad so takes 1 time every 3 days. Using IBU or Tylenol and has improvement. Pt has chronic low back pain . Did PT in the past with good results. Offered again and she refused. Also complains of upper back pain. 36DD thickstraps on her bra. -- No DM of HTN. 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 IUD - Mirena placed 2017 --> Hasn't had routine labs for screening. Review of Systems Constitutional: Negative for fever. HENT: Negative for ear pain. Eyes: Negative for redness. Respiratory: Negative for cough and shortness of breath. Cardiovascular: Negative for chest pain and leg swelling. Gastrointestinal: Negative for constipation, diarrhea, nausea and vomiting. Genitourinary: Negative for difficulty urinating. Musculoskeletal: Negative for myalgias. Skin: Negative for rash. Neurological: Negative for speech difficulty and headaches. Hematological: Does not bruise/bleed easily. Psychiatric/Behavioral: Negative for sleep disturbance. Vitals: 02/28/20 1420 BP: 100/70 BP Location: Left arm Patient Position: Sitting Pulse: 78 Temp: 36.4 ??C (97.5 ??F) SpO2: 98% Weight: 77.2 kg (170 lb 4.8 oz) Height: 156 cm (5' 1.42 ) Physical Exam Vitals signs and nursing note reviewed. Constitutional: Appearance: She is well-developed. HENT: Head: Normocephalic and atraumatic. Eyes: Comments: Pupils equal Neck: Thyroid: No thyromegaly. Cardiovascular: Rate and Rhythm: Normal rate and regular rhythm. Heart sounds: No murmur. Pulmonary: Effort: Pulmonary effort is normal. Breath sounds: Normal breath sounds. Abdominal: Palpations: Abdomen is soft. Tenderness: There is no abdominal tenderness. Musculoskeletal: Normal range of motion. Skin: General: Skin is warm and dry. Neurological: Mental Status: She is alert and oriented to person, place, and time. Assessment/Plan Diagnoses and all orders for this visit: Migraine without aura and without status migrainosus, not intractable (G43.009) (Primary) Assessment & Plan: Discussed possible triggers. Start Maxalt prn. Get regular rest/exercise. Check labs. Bring diary to next visit with VALDEZ. Diabetes mellitus screening (Z13.1) Assessment & Plan: Check labs Orders: - Hemoglobin A1c; Future Lipid screening (Z13.220) Assessment & Plan: Check labs Orders: - Lipid panel; Future Other fatigue (R53.83) Assessment & Plan: Probably multifactorial. Check labs and followup to re-evaluate Orders: - Comprehensive metabolic panel; Future - CBC with auto differential; Future - TSH; Future Obesity (BMI 30-39.9) (E66.9) Assessment & Plan: Obesity is unchanged. Discussed the patient's BMI. The BMI is above average. BMI management plan is completed. BMI Follow-up includes: nutrition counseling, exercise counseling and education provided Need for immunization against influenza (Z23) Assessment & Plan: Encouraged vaccine. Reviewed risks/ benefits. Patient refuses and accepts risks. BMI 31.0-31.9,adult (Z68.31) Assessment & Plan: Obesity is unchanged. Discussed the patient's BMI. The BMI is above average. BMI management plan is completed. BMI Follow-up includes: nutrition counseling, exercise counseling and education provided. Chronic midline low back pain without sciatica (M54.5, G89.29) Assessment & Plan: Encouraged exercise, stretching, walking and weight loss. Other orders - rizatriptan (MAXALT) 10 mg tablet; Take 1 tablet (10 mg total) by mouth once as needed for migraine May repeat in 2 hours if unresolved. Do not exceed 30 mg in 24 hours. Supriya Hay PA-C END DEVELOPER documented in this encounter Miscellaneous Notes * Assessment & Plan Note - Supriya Hay PA - 03/01/2020 10:15 PM BACK END DEVELOPER Associated Problem(s): Chronic midline low back pain without sciatica Encouraged exercise, stretching, walking and weight loss. END DEVELOPER * Assessment & Plan Note - Supriya Hay PA - 03/01/2020 10:07 PM BACK END DEVELOPER Associated Problem(s): Migraine without aura and without status migrainosus, not intractable Discussed possible triggers. Start Maxalt prn. Get regular rest/exercise. Check labs. Bring diary to next visit with VALDEZ. END DEVELOPER * Assessment & Plan Note - Supriya Hay PA - 03/01/2020 10:06 PM BACK END DEVELOPER Associated Problem(s): Other fatigue (Resolved 10/05/2023) Probably multifactorial. Check labs and followup to re-evaluate END DEVELOPER * Assessment & Plan Note - Supriya Hay PA - 03/01/2020 10:06 PM BACK END DEVELOPER Associated Problem(s): Need for immunization against influenza (Resolved 12/03/2021) Encouraged vaccine. Reviewed risks/ benefits. Patient refuses and accepts risks. END DEVELOPER * Assessment & Plan Note - Supriya Hay PA - 03/01/2020 10:06 PM BACK END DEVELOPER Associated Problem(s): Lipid screening (Resolved 10/05/2023) Check labs END DEVELOPER * Assessment & Plan Note - Supriya Hay PA - 03/01/2020 10:06 PM BACK END DEVELOPER Associated Problem(s): Diabetes mellitus screening (Resolved 10/05/2023) Check labs END DEVELOPER * Assessment & Plan Note - Supriya Hay PA - 03/01/2020 10:06 PM BACK END DEVELOPER Associated Problem(s): Annual physical exam (Resolved 05/24/2020) Encouraged healthy lifestyle, good nutrition and exercise. Encouraged Calcium and Vitamin D and weight bearing exercise for bone health. Reviewed immunizations Reviewed age appropirate screenings. END DEVELOPER * Assessment & Plan Note - Supriya Hay PA - 03/01/2020 10:06 PM BACK END DEVELOPER Associated Problem(s): Obesity (BMI 30-39.9) (Resolved 05/23/2020) Obesity is unchanged. Discussed the patient's BMI. The BMI is above average. BMI management plan is completed. BMI Follow-up includes: nutrition counseling, exercise counseling and education provided END DEVELOPER * Assessment & Plan Note - Mitchell Estrella MA - 02/28/2020 2:23 PM BACK END DEVELOPER Associated Problem(s): BMI 31.0-31.9,adult (Resolved 05/23/2020) Obesity is unchanged. Discussed the patient's BMI. The BMI is above average. BMI management plan is completed. BMI Follow-up includes: nutrition counseling, exercise counseling and education provided. END DEVELOPER documented in this encounter Plan of Treatment Not on file documented as of this encounter Procedures Procedure Name Priority Date/Time Associated Diagnosis Comments CBC WITH AUTO DIFFERENTIAL Routine 04/05/2020 1:11 PM BACK END DEVELOPER Other fatigue TSH Routine 04/05/2020 1:11 PM BACK END DEVELOPER Other fatigue HEMOGLOBIN A1C Routine 04/05/2020 1:11 PM BACK END DEVELOPER Diabetes mellitus screening LIPID PANEL Routine 04/05/2020 1:11 PM BACK END DEVELOPER Lipid screening COMPREHENSIVE METABOLIC PANEL Routine 04/05/2020 1:11 PM BACK END DEVELOPER Other fatigue documented in this encounter Results * TSH (04/05/2020 1:11 PM BACK END DEVELOPER) Pathologist [facility] TSH 2.06 mIU/L [facility] Comment: ?Reference Range ?> or = 20 Years ??0.40-4.50 ? Ranges ?First trimester ?0.26-2.66 ?Second trimester ?? 0.55-2.73 ?Third trimester ?0.43-2.91 Blood specimen (specimen) 04/05/2020 1:11 PM BACK END DEVELOPER 04/05/2020 1:12 PM BACK END DEVELOPER Narrative [facility] - 04/06/2020 8:28 AM BACK END DEVELOPER FASTING:YES FASTING: YES us Supriya HERNANDEZ LAB BLOOD ORDERABLES Final Result K[facility] [address] [place] [address] * CBC with auto differential (04/05/2020 1:11 PM BACK END DEVELOPER) Pathologist [facility] WBC 6.7 3.8 - 10.8 Thousand/u L [facility] RBC, POC 4.33 3.80 - 5.10 Million/uL [facility] Hgb 13.0 11.7 - 15.5 g/dL [facility] Hct 38.5 35.0 - 45.0 % [facility] MCV 88.9 80.0 - 100.0 fL [facility] MCH 30.0 27.0 - 33.0 pg [facility] MCHC 33.8 32.0 - 36.0 g/dL [facility] Rdw 12.7 11.0 - 15.0 % [facility] Platelets 300 140 - 400 Thousand/u L [facility] MPV 11.1 7.5 - 12.5 fL [facility] Neutrophils, abs 4,596 1,500 - 7,800 cells/uL [facility] Lymphocytes, abs 1,675 850 - 3,900 cells/uL [facility] Monocyte abs 335 200 - 950 cells/uL [facility] Eosinophils, abs 60 15 - 500 cells/uL [facility] Basophils, abs 34 0 - 200 cells/uL [facility] Neutrophils 68.6 % [facility] Lymphocyte pct 25.0 % [facility] Monocytes 5.0 % [facility] Eosinophils 0.9 % [facility] Basophils 0.5 % [facility] Blood specimen (specimen) 04/05/2020 1:11 PM BACK END DEVELOPER 04/05/2020 1:12 PM BACK END DEVELOPER Narrative [facility] - 04/06/2020 8:28 AM BACK END DEVELOPER FASTING:YES FASTING: YES Supriya HERNANDEZ LAB BLOOD ORDERABLES Final Result [facility] [address] [place] [address] * (ABNORMAL) Comprehensive metabolic panel (04/05/2020 1:11 PM BACK END DEVELOPER) Pathologist [facility] Glucose 100(H) 65 - 99 mg/dL [facility] Comment: ? Fasting reference interval For someone without known diabetes, a glucose value between 100 and 125 mg/dL is consistent with prediabetes and should be confirmed with a follow-up test. BUN 10 7 - 25 mg/dL [facility] Creatinine 0.73 0.50 - 1.10 mg/dL [facility] eGFR NON-AFR. MAURITIAN 104 > OR = 60 mL/min/1. 73m2 [facility] EGFR 121 > OR = 60 mL/min/1. 73m2 [facility] BUN/creat ratio NOT APPLICABLE 6 - 22 (calc) [facility] Sodium 138 135 - 146 mmol/L [facility] Potassium, pl 4.1 3.5 - 5.3 mmol/L [facility] Chloride 104 98 - 110 mmol/L [facility] CO2 29 20 - 32 mmol/L [facility] Calcium 9.3 8.6 - 10.2 mg/dL [facility] Protein, sr 6.8 6.1 - 8.1 g/dL [facility] Albumin 4.2 3.6 - 5.1 g/dL [facility] GLOBULIN 2.6 1.9 - 3.7 g/dL (calc) [facility] Alb/glob ratio 1.6 1.0 - 2.5 (calc) [facility] Bilirubin, total 0.4 0.2 - 1.2 mg/dL [facility] Alk phos 70 31 - 125 U/L [facility] AST 11 10 - 30 U/L [facility] ALT (SGPT) 9 6 - 29 U/L [facility] Blood specimen (specimen) 04/05/2020 1:11 PM BACK END DEVELOPER 04/05/2020 1:12 PM BACK END DEVELOPER Narrative [facility] - 04/06/2020 8:28 AM BACK END DEVELOPER FASTING:YES FASTING: YES Supriya HERNANDEZ LAB BLOOD ORDERABLES Final Result [facility] [address] [place] [address] * (ABNORMAL) Lipid panel (04/05/2020 1:11 PM BACK END DEVELOPER) Cholesterol 202(H) <200 mg/dL [facility] HDL 49(L) > OR = 50 mg/dL [facility] Triglycerides 67 <150 mg/dL [facility] LDL 137(H) mg/dL (calc) [facility] Comment: Reference range: <100 Desirable range <100 mg/dL for primary prevention; ?? <70 mg/dL for patients with CHD or diabetic patients with > or = 2 CHD risk factors. LDL-C is now calculated using the Jenaro calculation, which is a validated novel method providing better accuracy than the Friedewald equation in the estimation of LDL-C. Fermin STERLING et al. SUREKHA. 2013;310(19): 2773-0182 (http://[employer]/faq/YFF996) Chol/HDL ratio 4.1 <5.0 (calc) [facility] Non-HDL, (LDL+VLDL) 153(H) <130 mg/dL (calc) [facility] Comment: For patients with diabetes plus 1 major ASCVD risk factor, treating to a non-HDL-C goal of <100 mg/dL (LDL-C of <70 mg/dL) is considered a therapeutic option. Blood specimen (specimen) 04/05/2020 1:11 PM BACK END DEVELOPER 04/05/2020 1:12 PM BACK END DEVELOPER Narrative [facility] - 04/06/2020 8:28 AM BACK END DEVELOPER FASTING:YES FASTING: YES Supriya HERNANDEZ LAB BLOOD ORDERABLES Final Result [facility] [address] [place] [address] * Hemoglobin A1c (04/05/2020 1:11 PM BACK END DEVELOPER) Hgb A1C 5.5 <5.7 % of total Hgb [facility] Comment: For the purpose of screening for the presence of diabetes: <5.7% ? Consistent with the absence of diabetes 5.7-6.4% ?Consistent with increased risk for diabetes ?(prediabetes) > or =6.5% ??Consistent with diabetes This assay result is consistent with a decreased risk of diabetes. Currently, no consensus exists regarding use of hemoglobin A1c for diagnosis of diabetes in children. According to [place] Diabetes Association (ADA) guidelines, hemoglobin A1c <7.0% represents optimal control in non- diabetic patients. Different metrics may apply to specific patient populations. Standards of Medical Care in Diabetes(ADA). ?? Blood specimen (specimen) 04/05/2020 1:11 PM BACK END DEVELOPER 04/05/2020 1:12 PM BACK END DEVELOPER Narrative [facility] - 04/06/2020 8:28 AM BACK END DEVELOPER FASTING:YES FASTING: YES Supriya HERNANDEZ LAB BLOOD ORDERABLES Final Result [facility] [address] [facility] [place] [phone] documented in this encounter Visit Diagnoses Diagnosis Migraine without aura and without status migrainosus, not intractable- Primary Diabetes mellitus screening Screening for diabetes mellitus Lipid screening Screening for lipoid disorders Other fatigue Obesity (BMI 30-39.9) Need for immunization against influenza Need for prophylactic vaccination and inoculation against influenza BMI 31.0-31.9,adult Chronic midline low back pain without sciatica documented in this encounter Historical Medications * This list may reflect changes made after this encounter. levonorgestreL (MIRENA) IUD 1 each by intrauterine route once 07/17/19 23 ondansetron ODT (ZOFRAN-ODT) 4 mg disintegrating tablet DIS ONE T PO Q 6 H PRN N OR VOMITING 0 05/24/19 21 ibuprofen (ADVIL,MOTRIN) 600 mg tablet TK 1 T PO Q 6 H PRN P 0 05/24/19 21 added in this encounter Care Teams Power House Engineer Relationship Specialty Start Date End Date Supriya Hay PA [address] [facility] [address] [place] [address] PCP - General Internal Medicine 02/21/20 documented as of this encounter
--- OUTSIDE RECORDS SUMMARY | 2024-04-01 05:54 | XMS_ITS | Encounter Summary ---
Author Organization [facility] Address [address] [place] [address] Care Team Providers Care Manufacturing Plant Controller Name Role Phone Supriya Hay Primary Care Provider [phone] Reason for Referral * Consultation (Routine) - Closed Specialty Diagnoses / Procedures Referred By Melissa swanson Referred To Contact Orthopedic Surgery Diagnoses Left leg pain Supriya Hay PA [address] [place] [address] Phone: tel: fax: Helio Tapia MD [address] [place] [id number] Phone: tel: fax: Referral ID Status Reason Start Date Expiration Date V isits Requested Visits Authorized [id number] Closed Specialty Services Required 05/24/2020 06/23/2021 1 1 Question Answer Please select the performing region: [facility] [[id number]] Please select the performing department: [facility] [[id number]] To provider: HELIO TAPIA [[id number]] # of visits: 1 Comments Or first available. Fall during the last snow (3 weeks ago). Persistent pain below left patella and rodriguez. Limping. Negative xrays in ER at time of injury ENT LIFE COORDINATOR Reason for Visit * Reason Comments Fall Encounter Details Date Type Department Care Team (Late st Contact Info) Description 05/23/2020 1:45 PM STUDENT LIFE COORDINATOR Office Visit [facility] Family Medicine [address] [place] [address] Supriya Hay PA [address] [place], [place] [id number] Left leg pain (Primary Dx); Migraine without aura and without status migrainosus, not intractable; Mixed hyperlipidemia; Obesity (BMI 30-39.9); BMI 33.0-33.9,adult Social History Tobacco Use Types Packs/Day Years [...] PM CDT Legal Sex Female 12:02 AM STUDENT LIFE COORDINATOR Gender Identity Female 11/16/2022 3:54 PM CDT Sexual Orientation Straight 11/16/2022 3: 54 PM CDT documented as of this encounter Last Filed Vital Signs Vital Sign Reading Time Taken Comments Blood Pressure 110/80 05/23/2020 2:10 PM STUDENT LIFE COORDINATOR Pulse 102 05/23/2020 2:10 PM STUDENT LIFE COORDINATOR Temperature 36.5 ??C (97.7 ??F) 05/23/2020 2:10 PM CS T Respiratory Rate - - Oxygen Saturation 98% 05/23/2020 2:10 PM STUDENT LIFE COORDINATOR Inhaled Oxygen Concentration - - Weight 81.8 kg (180 lb 6.4 oz) 05/23/2020 2:10 P M STUDENT LIFE COORDINATOR Height 156 cm (5' 1.42 ) 05/23/2020 2:10 PM STUDENT LIFE COORDINATOR Body Mass Index 33.62 05/23/2020 2:10 PM STUDENT LIFE COORDINATOR documented in this encounter Ordered Prescriptions Prescription Sig Dispense Quantity Refills Last Filled Start Date End Date meloxicam (MOBIC) 7.5 mg tablet Take 1 tablet (7.5 mg total) by mouth daily 30 tablet 1 05/23/2020 12/03/2021 documented in this encounter Progress Notes * Supriya Hay, PA - 05/23/2020 1:45 PM CST Images from the original note were not included. Subjective/Objective Patient ID: Aziza Lockhart is a 39 y.o. female. Chief Complaint Fall HPI Patient presents to followup migraines and recent labs and a fall. Fell on during the heavy snow about 3 weeks ago). Unsure how she went down but slipped on ice and fell with left knee bent. Thinks impact was knee and rodriguez. Didn't have LOC. Went to [facility]. Was told no fracture. Was put is a straight leg brace and has continued to wear it. Still has tenderness below patella and rodriguez. NO obvious bruising or swelling. She is still walking with a limp. Started maxalt at last visit. Was to record VALDEZ but with her leg pain has struggled doing her routine things. Labs are below for review. Lab Results Component Value Date TSH 2.06 04/05/2020 Lab Results Component Value Date WBC 6.7 04/05/2020 HGB 13.0 04/05/2020 HCT 38.5 04/05/2020 MCV 88.9 04/05/2020 LABPLAT 300 04/05/2020 Chemistry Lab Results Component Value Date SODIUM 138 04/05/2020 POTASSIUM 4.1 04/05/2020 CHLORIDE 104 04/05/2020 CO2 29 04/05/2020 ANIONGAP 12 06/29/2018 BUNSER 10 04/05/2020 CREATININE 0.73 04/05/2020 GLUCOSE 100 (H) 04/05/2020 CALCIUM 9.3 04/05/2020 BILITOT 0.4 04/05/2020 PROTEIN 6.8 04/05/2020 ALBUMIN 4.2 04/05/2020 ALKPHOS 70 04/05/2020 AST 11 04/05/2020 ALT 9 04/05/2020 Lab Results Component Value Date CHOL 202 (H) 04/05/2020 CHOL 220 (H) 06/29/2018 CHOL 212 (H) 10/08/2014 Lab Results Component Value Date HDL 49 (L) 04/05/2020 HDL 54 06/29/2018 HDL 64 (H) 10/08/2014 Lab Results Component Value Date LDLCALC 150 (H) 06/29/2018 LDLCALC 128 10/08/2014 LDL 137 (H) 04/05/2020 Lab Results Component Value Date TRIG 67 04/05/2020 TRIG 81 06/29/2018 TRIG 102 10/08/2014 No results found for: POCCHDLR No results found for: POCNONHDL No results found for: POCCHLPL Lab Results Component Value Date HGBA1C 5.5 04/05/2020 Review of Systems Constitutional: Negative for fever. HENT: Negative for congestion. Respiratory: Negative for shortness of breath. Cardiovascular: Negative for chest pain. Gastrointestinal: Negative for constipation and diarrhea. Vitals: 05/23/20 1410 BP: 110/80 BP Location: Left arm Patient Position: Sitting Pulse: 102 Temp: 36.5 ??C (97.7 ??F) TempSrc: Temporal SpO2: 98% Weight: 81.8 kg (180 lb 6.4 oz) Height: 156 cm (5' 1.42 ) Physical Exam Vitals and nursing note [...] and all orders for this visit: Left leg pain (M79.605) (Primary) Assessment & Plan: Persistent pain after a fall about 3 weeks ago. Still limping. Negative xrays at ER. Using NSAIDs and ice. Will refer to Ortho for further evaluation due to the persistent of her sxs. Orders: - Ambulatory referral to Orthopedic Surgery; Future Migraine without aura and without status migrainosus, not intractable (G43.009) Assessment & Plan: Continue with the Maxalt. Continue to monitor as was difficult to see pattern with this fall as it is negatively affecting her sleep patterns. Mobic may help is tension component Mixed hyperlipidemia (E78.2) Assessment & Plan: Encouraged patient to follow fat/low chol diet like the Mediterranean diet. Increase good fats inthe diet. Increase exercise. Monitor labs as needed. If not enough change with diet/exercise will need to start statin due to LDL. Obesity (BMI 30-39.9) (E66.9) Assessment & Plan: Obesity is unchanged. Discussed the patient's BMI. The BMI is above average. BMI management plan is completed. BMI Follow-up includes: nutrition counseling, exercise counseling and education provided. BMI 33.0-33.9,adult (Z68.33) Assessment & Plan: Obesity is unchanged. Discussed the patient's BMI. The BMI is above average. BMI management plan is completed. BMI Follow-up includes: nutrition counseling, exercise counseling and education provided. Other orders - meloxicam (MOBIC) 7.5 mg tablet; Take 1 tablet (7.5 mg total) by mouth daily Supriya Hay PA-C Cosigned by Percy Gottlieb MD at 05/26/2020 8:25 PM STUDENT LIFE COORDINATOR ENT LIFE COORDINATOR ENT LIFE COORDINATOR documented in this encounter Miscellaneous Notes * Assessment & Plan Note - Supriya Hay PA - 05/24/2020 8:30 PM STUDENT LIFE COORDINATOR Associated Problem(s): Mixed hyperlipidemia Encouraged patient to follow fat/low chol diet like the Mediterranean diet. Increase good fats inthe diet. Increase exercise. Monitor labs as needed. If not enough change with diet/exercise will need to start statin due to LDL. ENT LIFE COORDINATOR * Assessment & Plan Note - Supriya Hay PA - 05/24/2020 8:28 PM STUDENT LIFE COORDINATOR Associated Problem(s): Migraine without aura and without status migrainosus, not intractable Continue with the Maxalt. Continue to monitor as was difficult to see pattern with this fall as it is negatively affecting her sleep patterns. Mobic may help is tension component ENT LIFE COORDINATOR * Assessment & Plan Note - Supriya Hay PA - 05/24/2020 8:26 PM STUDENT LIFE COORDINATOR Associated Problem(s): Left leg pain Persistent pain after a fall about 3 weeks ago. Still limping. Negative xrays at ER. Using NSAIDs and ice. Will refer to Ortho for further evaluation due to the persistent of her sxs. ENT LIFE COORDINATOR * Assessment & Plan Note - Mitchell Estrella MA - 05/23/2020 2:13 PM STUDENT LIFE COORDINATOR Associated Problem(s): BMI 34.0-34.9,adult (Resolved 01/22/2022) Obesity is unchanged. Discussed the patient's BMI. The BMI is above average. BMI management plan is completed. BMI Follow-up includes: nutrition counseling, exercise counseling and education provided. ENT LIFE COORDINATOR * Assessment & Plan Note - Mitchell Estrella MA - 05/23/2020 2:13 PM STUDENT LIFE COORDINATOR Associated Problem(s): Obesity (BMI 30-39.9) (Resolved 01/22/2022) Obesity is unchanged. Discussed the patient's BMI. The BMI is above average. BMI management plan is completed. BMI Follow-up includes: nutrition counseling, exercise counseling and education provided. ENT LIFE COORDINATOR documented in this encounter Plan of Treatment Scheduled Referrals Name Type Priority Associated Diagnoses Order Schedule Ambulatory referral to Orthopedic Surgery Outpatient Referral Routine Left leg pain Expected: 06/07/2020 (Approximate), Expires: 05/24/2021 documented as of this encounter Visit Diagnoses Diagnosis Left leg pain- Primary Pain in soft tissues of limb Migraine without aura and without status migrainosus, not intractable Mixed hyperlipidemia Obesity (BMI 30-39.9) BMI 33.0-33.9,adult documented in this encounter Discontinued Medications Medication Sig Discontinue Reason Start Date End Da te ondansetron ODT (ZOFRAN-ODT) 4 mg disintegrating tablet DIS ONE T PO Q 6 H PRN N OR VOMITING Therapy completed 12/01/2019 05/23/2020 ibuprofen (ADVIL,MOTRIN) 600 mg tablet TK 1 T PO Q 6 H PRN P 12/01/2019 05/23/2020 documented as of this encounter Care Teams Manufacturing Plant Controller Relationship Specialty Start Date End Date Supriya Hay PA [address] [facility] [address] [place] [address] PCP - General Internal Medicine 02/21/20 documented as of this encounter
--- OUTSIDE RECORDS SUMMARY | 2024-04-01 05:54 | XMS_ITS | Encounter Summary ---
Author Organization [facility] Address [address] [place] [address] Care Team Providers Care Antique Furniture Restorer Name Role Phone Unavailable Primary Care Provider Unavailabl e Encounter Details Date Type Department Care Team (Latest Contact Info) Description 10/07/2012 11:16 AM CDT Hospital Encounter [facility] Castro Winchester MD [address] [place] [address] Abdominal pain, epigastric; Nausea with vomiting Social History Tobacco Use Types Packs/Day Years Used Date Smoking Tobacco: Never Assessed Comments Unknown Sex and Gender Information Value Date Recorded Sex Assigned at Female 11/16/2022 3:54 PM CDT Legal Sex 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 Unremarkable right upper quadrant ultrasound. No cholelithiasis or acute cholecystitis evident. THIS IS AN ELECTRONICALLY VERIFIED REPORT 10/07/2012 1:43 PM: ??Suze Garcia M.D. Suze Garcia M.D. KL:cesario 01:43 PM 01:43 PM [facility] [EOD] Narrative 10/07/2012 1:47 PM CDT EXAMINATION: ??Right upper quadrant abdominal ultrasound HISTORY: ??Epigastric pain. ??Nausea. ??Symptoms for 4 months. TECHNIQUE: ??Sonographic scanning of the right upper quadrant abdominal organs was performed. ??Color Doppler was used. COMPARISON: Abdomen pelvis CT 08/07/12. ??HIDA scan 04/02/08. FINDINGS: ??Visualized portions of the pancreatic head and body appear unremarkable. ??The tail somewhat obscured by overlying bowel gas. ??The liver contour and echogenicity appears normal. ??No focal mass or biliary dilation is seen. Gallbladder appears unremarkable sonographically, with no gallbladder wall thickening, cholelithiasis or pericholecystic fluid seen. ??The extrahepatic biliary duct measures 2.1 mm, normal. Sonographic Hinojosa's sign was negative. ?? Right kidney appears unremarkable, 9.4 x 4.2 cm, with normal cortical thickness and echogenicity. ??No hydronephrosis. ??Main portal vein is patent. ?? Visualized portions of the intrahepatic IVC appear patent. Procedure Note Provider, MD Sonal - 08/06/2020 EXAMINATION: Right upper quadrant abdominal ultrasound HISTORY: Epigastric pain. Nausea. Symptoms for 4 months. TECHNIQUE: Sonographic scanning of the right upper quadrant abdominalorgans was performed. Color Doppler was used. COMPARISON: Abdomen pelvis CT 08/07/12. HIDA scan 04/02/08. FINDINGS: Visualized portions of the pancreatic head and body appear unremarkable. The tail somewhat obscured by overlying bowel gas. Theliver contour and echogenicity appears normal. No focal mass or biliarydilation is seen. Gallbladder appears unremarkable sonographically, with no gallbladder wall thickening, cholelithiasis or pericholecystic fluid seen. Theextrahepatic biliary duct measures 2.1 mm, normal. Sonographic Hinojosa's sign wasnegative. Right kidney appears unremarkable, 9.4 x 4.2 cm, with normal cortical thickness and echogenicity. No hydronephrosis. Main portal vein ispatent. Visualized portions of the intrahepatic IVC appear patent. IMPRESSION: Unremarkable right upper quadrant ultrasound. No cholelithiasis or acute cholecystitis evident. THIS IS AN ELECTRONICALLY VERIFIED REPORT 10/07/2012 1:43 PM: Suze Garcia M.D. Suze Garcia M.D. KL:cesario 01:43 PM 01:43 PM [facility] [EOD] us Castro Winchester MD IMG US PROCEDURES Final Re sult documented in this encounter Visit Diagnoses Diagnosis Abdominal pain, epigastric Nausea with vomiting documented in this encounter
== END 2024-03-25 06:44 | disposition home or self-care (01) ==
LOC: ANHED 03-25 05:43
PROVIDERS: Emergency Provider Emergency Medicine; PCP Physician Assistant
DX: J06.9 Acute upper respiratory infection, unspecified (principal); B97.4 Respiratory syncytial virus as the cause of diseases classified elsewhere; Z20.822 Contact with and (suspected) exposure to COVID-19
CPT/HCPCS: 71045; 81025; 87637; 87651; 94640; 96374; 99284; A9270

== ENCOUNTER 2024-04-12 16:01 | Emergency (ER) | payer OTHER, SELFPAY ==
--- NOTE | ~2024-04-12 | XR_ITS ---
EXAMINATION: XR chest 2V DATE: 04/12/2024 16:47 INDICATION: Cough. TECHNIQUE: Frontal and lateral views of the chest were obtained. COMPARISON: Chest single view 03/25/2024 FINDINGS: There is no pneumonia, pleural effusion, or pneumothorax. The heart size is normal. Surgica l clips in the right upper quadrant are likely from cholecystectomy. IMPRESSION: 1. No acute cardiopulmonary disease. Reviewed, dictated and finalized at location B. 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
--- NOTE | ~2024-04-12 | CT_ITS ---
CLINICAL INDICATION: Nausea vomiting and diarrhea. Personal history of RSV with persistent cough COMPARISON: 05/11/2023. TECHNIQUE: Multiple contiguous axial images of the abdomen and pelvis were performed following the ad ministration of with 100 mL Omnipaque-350 intravenous contrast The dose-length product (DLP) was 588.39 mGy-cm. Automated exposure control and iterative reconstruction technique were employed. FINDINGS/OBSERVATIONS: Visualized lower thorax: The bilateral lung bases are clear. The heart is of normal size, without pericardial effusion. Small hiatal hernia is present. Liver: The liver enhances homogeneously and is not enlarged measuring 17 cm in longitudinal dimension Gallbladder and biliary system: The gallbladder is surgically absent. Pancreas: The pancreas enhances homogeneously without ductal dilatation. Spleen: The spleen enhances homogeneously and is not enlarged measuring 4 cm in longitudinal dimension. Kidneys: The bilateral kidneys enhance symmetrically without hydronephrosis or renal calculi. Adrenal glands: Unremarkable. Gastrointestinal tract: Mural thickening within the transverse colon with surrounding inflammatory change, findings suggestin g a focal colitis, for which clinical correlation is needed. Contrast opacified fecal stasis is identified within the rectosigmoid colon. Appendix: The appendix is not definitively visualized. However, no pericecal inflammatory change is identified suggest the presence of acute appendicitis. Vasculature: Unremarkable. No aneurysmal dilatation or significant stenosis. Lymph nodes: No pathologically enlarged or morphologically suspicious lymph nodes within the retroperitoneum or at the root of the mesentery. Pelvic structures: The bladder is distended, and otherwise unremarkable. The uterus is nodular in contour, suggesting fibroid disease. Body wall and musculoskeletal: No significant degenerative disease within the lower thoracic or lumbosacral spine. IMPRESSION: Findings suggesting a short segment colitis within the proximal transverse colon, as detailed above. Reviewed, dictated and finalized at location A. VERY ENGINEER IMPRESSION: Findings suggesting a short segment colitis within the proximal transverse colo n, as detailed above.
[2024-04-12 16:08] VITALS: BP 133/81; PULSE 86; RESP 16; TEMP 36.5; O2SAT 100
[2024-04-12 16:25] VITALS: BP 127/91; PULSE 86; RESP 16; O2SAT 100
[2024-04-12 16:39] LABS: Basophils Percent Auto 0.5 % (0.2-1.2); Eosinophils Absolute Auto 0.1 K/mm3 (0-0.3); Eosinophils Percent Auto 1.1 % (0-4.4); Hematocrit 36.8 % (37.0-47.0); Hemoglobin 12.1 g/dL (12.0-15.0); Immature Granulocyte Absolute 0.02 K/mm3 (0.00-0.031); Immature Granulocyte Percent A 0.2 % (0-0.5); Mean Corpuscular HGB Conc 32.9 g/dl (32-36); Mean Corpuscular Hemoglobin 29.3 pg (26-34); Mean Corpuscular Volume 89.1 fl (80-100); Mean Platelet Volume 11.4 fl (7.4-10.4); Monocytes Absolute Auto 0.3 K/mm3 (0.1-0.6); Neutrophils Absolute Auto 5.7 K/mm3 (1.3-6.7); Neutrophils Percent Auto 66.2 % (45.5-73.1); Platelet Count Result 283 k/mm3 (150-375); Red Blood Count 4.13 M/mm3 (4.2-5.4); Red Cell Distribution Width 14.6 % (11.5-14.5); White Blood Count 8.6 K/mm3 (4.5-10.0)
[2024-04-12 16:50] LABS: Alanine Aminotransferase 18 U/L (6-35); Alkaline Phosphatase 71 U/L (38-126); Anion Gap 7 mmol/L (4-12); Aspartate Amino Transferase 19 U/L (14-36); Bilirubin,Total 0.5 mg/dL (0.2-1.3); Blood Urea Nitrogen 10 mg/dL (7-17); Calcium 8.4 mg/dL (8.4-10.2); Carbon Dioxide 29 mmol/L (22-30); Chloride 102 mmol/L (98-107); Estimated Glomerular Filt Rate > 60; Glucose 87 mg/dL (65-110); Lipase 41 U/L (23-300); Potassium 3.6 mmol/L (3.4-5.0); Sodium 138 mmol/L (137-145)
--- NOTE | 2024-04-12 17:03 | ED_ITS ---
HPI - Nausea/Vomiting/Diarrhea General Chief complaint: Nausea/Vomiting/Diarrhea Stated complaint: Left side pain, Vomiting, Cough-recent RSV Time Seen by Provider: 04/12/24 16:16 Source: patient and old records reviewed Mode of arrival: ambulatory Limitations: no limitations History of Present Illness HPI Narrative: Patient is a 43 y/o female who presents to the ED with c/o nausea, vomiting, cough. Patient reports she has been sick since 03/22/24. Was seen in the ED here on 03/25/24 and diagnosed with RSV. States her breathing has improved since then, but she has been having persistent cough, persistent nausea, vomiting. Has had difficulty keeping down food and drink because of the vomiting. Also reports having some pain throughout her left-sided abdomen left ribs, worse with movement and coughing. Has been taking ibuprofen and using lidocaine patches with some improvement of this pain. Denies persistent fevers. Denies shortness of breath. Denies anterior chest pain. Denies diarrhea. Has been constipated somewhat this week. Related Data Allergies Allergy/AdvReac Type Severity Reaction Status Date / Time clindamycin Allergy Unknown Unknown Verified 03/25/24 02:57 Sulfa (Sulfonamide Allergy Unknown Unknown Verified 03/25/24 02:57 Antibiotics) Review of Systems 2 Review of Systems: All systems reviewed & are unremarkable except as noted in HPI. All systems reviewed & are unremarkable except as noted in HPI and below PMFSH Past Medical History Medical History Patient denies significant medical history Surgical History Surgical History History of cholecystectomy Family History Family History Mother Hypertension Family history of type 2 diabetes mellitus Father Patient's father is in good health Other Asthma Family history of thyroid disease Social History Social History Smoking status: Never smoker Second hand tobacco smoke exposure: No Alcohol intake: never Exam 2 Narrative: GENERAL: Well appearing, well-nourished, non-toxic, in no acute distress. HEAD: Normocephalic, atraumatic. RESPIRATORY: Airway patent, respirations nonlabored. Clear to auscultation bilaterally, no rales, rhonchi, wheezing. CARDIOVASCULAR: Regular rate and rhythm without murmurs, rubs, or gallops. ABDOMINAL: Soft, TTP throughout L mid to upper abdomen, nondistended. Normoactive BS. MUSCULOSKELETAL: Moves all extremities. No gross deformities. TTP along lateral inferior L rib cage. SKIN: Warm, dry, normal color. NEURO: A&O X3. Speech clear. Cranial nerves II-XII grossly intact. Steady gait. No ataxic movements. PSYCHIATRIC: Appropriate mood and affect. Normal interaction. Course Vital Signs Vital signs: Vital Signs Temperature 97.7 F 04/12/24 16:08 Pulse Rate 86 04/12/24 16:08 Respiratory Rate 16 04/12/24 16:08 Blood Pressure 133/81 04/12/24 16:08 Pulse Oximetry 100 04/12/24 16:08 Oxygen Delivery Room Air 04/12/24 16:08 Temperature 97.6 F 04/12/24 17:20 Pulse Rate 94 04/12/24 19:16 Respiratory Rate 17 04/12/24 19:16 Blood Pressure 116/84 04/12/24 19:16 Pulse Oximetry 97 04/12/24 19:16 Oxygen Delivery Room Air 04/12/24 16:08 MDM - Nausea/Vomiting/Diarrhea MDM Narrative Medical decision making narrative: Patient presented to ED with persistent nausea and vomiting, persistent cough after recent RSV diagnosis. Difficulty keeping down food drink. Also reporting left-sided abdominal pain. Vital signs are stable upon arrival. Patient is in no acute distress. Afebrile here. Laboratory studies without leukocytosis. Stable H& H. CMP is unremarkable. No significant electrolyte abnormalities. Stable kidney function. No serious signs of dehydration. Normal LFTs and lipase. UA with out ketones, shows 6-10 RBC. Moderate squamous cells noted. Sent for culture. Low suspicion for acute infection. Viral swabs today are negative. Chest x-ray is clear. CT scan of abdomen/pelvis was obtained and showing short segment of colitis. No other concerning findings. Given normal white blood cell count, lack of profuse diarrhea, lack of fevers, suspicious for gastroenteritis picture, inflammatory colitis. Patient given fluids, nausea medicine, pain medicine in the ED. On re- evaluation, she is feeling improved. Able to tolerate p.o. intake. Discussed lab and imaging findings. Discussed continued management of sx's at home. Will rx reglan and bentyl. Advised viral cough may be prolonged for quite some time. Recommended continued follow-up with PCP for further management. Given strict return precautions. She agrees with plan and feels comfortable going home. Discharged in stable condition. Medical Records Attestation: I reviewed the patient's medical records. Lab Data Attestation: I reviewed the patient's lab results. 04/12/24 16:32 04/12/24 16:32 Labs: Lab Results 04/12/24 Range/Units 16:32 WBC 8.6 (4.5-10.0) K/mm3 RBC 4.13 L (4.2-5.4) M/mm3 Hgb 12.1 (12.0-15.0) g/dL Hct 36.8 L (37.0-47.0) % MCV 89.1 (80-100) fl MCH 29.3 (26-34) pg MCHC 32.9 (32-36) g/dl RDW 14.6 H (11.5-14.5) % Plt Count 283 (150-375) k/mm3 MPV 11.4 H (7.4-10.4) fl Immature Gran % (Auto) 0.2 (0-0.5) % Neut % (Auto) 66.2 (45.5-73.1) % Lymph % (Auto) 28.0 (18.3-44.2) % Emery % (Auto) 4.0 (2.6-8.5) % Eos % (Auto) 1.1 (0-4.4) % Baso % (Auto) 0.5 (0.2-1.2) % Lymph # (Auto) 2.40 (0.9-3.2) K/mm3 Emery # (Auto) 0.3 (0.1-0.6) K/mm3 Eos # (Auto) 0.1 (0-0.3) K/mm3 Baso # (Auto) 0.0 (0.0-0.1) K/mm3 Abs Immat Gran (auto) 0.02 (0.00-0.031) K/mm3 Absolute Neuts (auto) 5.7 (1.3-6.7) K/mm3 Absolute Nucleated RBC 0.000 (0.0-0.012) K/mm3 Nucleated RBC % 0.0 (0.0-0.2) % Sodium 138 (137-145) mmol/L Potassium 3.6 (3.4-5.0) mmol/L Chloride 102 (98-107) mmol/L Carbon Dioxide 29 (22-30) mmol/L Anion Gap 7 (4-12) mmol/L BUN 10 (7-17) mg/dL Creatinine 0.92 (0.7-1.0) mg/dL Estim Creat Clear Calc Not Reportable Estimated GFR > 60 (59 - ) Glucose 87 (65-110) mg/dL Calcium 8.4 (8.4-10.2) mg/dL Magnesium 2.0 (1.6-2.3) mg/dL Total Bilirubin 0.5 (0.2-1.3) mg/dL AST 19 (14-36) U/L ALT 18 (6-35) U/L Alkaline Phosphatase 71 (38-126) U/L Total Protein 7.0 (6.3-8.2) g/dL Albumin 4.0 (3.5-5.1) g/dL Lipase 41 (23-300) U/L Urine Color Yellow (Yellow) Urine Appearance Clear (Clear) Urine pH 8.0 (5.0-9.0) Ur Specific [place] 1.013 (1.001-1.035) Urine Protein Negative (Negative) mg/dL Urine Glucose (UA) Trace H (Negative) mg/dL Urine Ketones Negative (Negative) mg/dL Ur Blood (Man) Negative (Negative) Urine Nitrate Negative (Negative) Urine Bilirubin Negative (Negative) Urine Urobilinogen 1.0 (<2.0) mg/dL Add Ur Microanalysis Reviewed Leukocyte Esterase Rfl Trace H (Negative) MARIA ANTONIA/UL Urine RBC 6-10 H (0-2) /hpf Urine WBC 0-5 (0-3) /hpf Ur Squamous Epith Cells Moderate (Few) /hpf Urine Bacteria 4+ H /hpf Urine Casts 3-5 Influenza A (RT-PCR) Negative (Negative) Influenza B (RT-PCR) Negative (Negative) RSV (RT-PCR) Negative (Negative) SARS-CoV-2 RNA (RT-PCR) Negative (Negative) Imaging Data Attestation: I personally reviewed and interpreted this imaging study as follows: Radiologist's impression: ITS Impressions Chest X-Ray 04/12/24 16:47 IMPRESSION: 1. No acute cardiopulmonary disease. Abdomen/Pelvis CT 04/12/24 18:47 IMPRESSION: Findings suggesting a short segment colitis within the proximal transverse colon, as detailed above. Discharge Plan Discharge Clinical Impression: Left sided abdominal pain, Colitis Nausea and vomiting Qualifiers: Vomiting type: unspecified Qualified Code(s): R11.2 - Nausea with vomiting, unspecified Patient Disposition: Home, Self-Care Condition: Stable Instructions: Antibiotic Form, Pleurisy (ED), Dehydration (ED), Clear Liquid Diet (ED), Acute Nausea and Vomiting (ED) Additional Instructions: Utilize zofran/reglan as needed for further nausea. Utilize ibuprofen, tylenol, lidocaine patches as needed for further pain. You may also take Bentyl as needed for further abdominal discomfort/cramping. Increase fluid intake. Recommend electrolyte rich fluids, gatorade, pedialyte, body armour. Recommend clear liquids or bland diet until symptoms improve, such as bananas, rice, applesauce, toast, or crackers. Follow up with your primary care doctor for further evaluation. Return to the ED if you experience worsening or severe symptoms, unable to keep down food or drink, severe pain, fevers, rectal bleeding, vomiting blood, shortness of breath, difficulty breathing, or any other symptoms of concern. Patient Language: Belarusian Prescriptions: New metoclopramide HCl 5 mg tablet 5 mg PO Q6H PRN (Reason: nausea and vomiting) Qty: 10 0RF dicyclomine 20 mg tablet 20 mg PO TID PRN (Reason: Abdominal Discomfort) Qty: 15 0RF No Action ondansetron HCl [Zofran] 4 mg tablet 4 mg PO Q6H PRN (Reason: nausea and vomiting) Qty: 10 0RF dicyclomine 20 mg tablet 20 mg PO QID Qty: 20 0RF dicyclomine 20 mg tablet 20 mg PO TID PRN (Reason: Abdominal Discomfort) Qty: 10 0RF ondansetron 4 mg tablet,disintegrating 4 mg PO Q8H PRN (Reason: nausea and vomiting) Qty: 12 0RF ondansetron 4 mg tablet,disintegrating 4 mg PO Q8H PRN (Reason: nausea and vomiting) Qty: 20 0RF benzonatate 200 mg capsule 200 mg PO TID PRN (Reason: cough) Qty: 21 0RF cyclobenzaprine 10 mg tablet 10 mg PO TID PRN (Reason: muscle spasm) Qty: 21 0RF ibuprofen 800 mg tablet 800 mg PO TID PRN (Reason: pain) Qty: 30 0RF metoclopramide HCl [Reglan] 10 mg tablet 10 mg PO Q6H PRN (Reason: nausea and vomiting) Qty: 10 0RF diclofenac potassium 50 mg tablet 50 mg PO TID PRN (Reason: pain) Qty: 30 0RF ondansetron 4 mg tablet,disintegrating 4 mg PO Q8H PRN (Reason: nausea and vomiting) Qty: 15 0RF prednisone 20 mg tablet 40 mg PO DAILY 5 Days Qty: 10 0RF ondansetron 4 mg tablet,disintegrating 4 mg PO Q8H PRN (Reason: nausea and vomiting) Qty: 10 0RF benzonatate 200 mg capsule 200 mg PO TID PRN (Reason: cough) Qty: 21 0RF Follow-up/Referrals: Satnam,DAVID Epps [Primary Care Provider] - Time of Disposition: 19:18
[2024-04-12] MEDS: METOCLOPRAMIDE HCL INJ 10 MG/2 ML VIAL IV PUSH (17:13)
[2024-04-12] MEDS: SODIUM CHLORIDE 0.9% IV 1,000 ML 999 ML IV CONT (17:13)
[2024-04-12] MEDS: HYDROcodone/acetaminophen (*CRX) 5-325 MG TABLET 1 TAB PO (17:13)
[2024-04-12 17:15] LABS: Influenza A QL RT-PCR Negative (Negative); Influenza B QL RT-PCR Negative (Negative); RSV RNA, RT-PCR Negative (Negative); SARS-CoV-2 RNA PCR Negative (Negative)
[2024-04-12 17:17] LABS: Add Urine Microscopic? YES; Appearance Urine Clear (Clear); Bacteria Urine 4+ /hpf; Bilirubin Urine Negative (Negative); Blood Urine Negative (Negative); Color Urine Yellow (Yellow); Glucose Urine UA Trace mg/dL (Negative); Ketones Urine Negative (Negative); Leukocyte Esterase Ur Trace LEU/UL (Negative); Need Manual Microscopic Reviewed; Nitrate Urine Negative (Negative); Protein Urine Negative (Negative); Specific Grav Ur 1.013 (1.001-1.035); Squamous Epithelial Cell Urine Moderate /hpf (Few); WBC Urine 0-5 /hpf (0-3)
[2024-04-12 17:20] VITALS: BP 134/98; PULSE 85; RESP 16; TEMP 36.4; O2SAT 100
[2024-04-12 18:40] VITALS: BP 125/74; PULSE 94; RESP 14; O2SAT 100
[2024-04-12 19:16] VITALS: BP 116/84; PULSE 94; RESP 17; O2SAT 97
--- NOTE | 2024-04-12 19:17 | PC.NURSE ---
Assumed care of patient after receiving rep.ort from [facility] Paul [facility] @ [id number].
== END 2024-04-12 20:00 | disposition home or self-care (01) ==
PROVIDERS: Emergency Provider Physician Assistant; PCP Physician Assistant
DX: K52.9 Noninfective gastroenteritis and colitis, unspecified (principal); Z20.822 Contact with and (suspected) exposure to COVID-19; Z90.49 Acquired absence of other specified parts of digestive tract
CPT/HCPCS: 36415; 71046; 74177; 80053; 81001; 83690; 83735; 85025; 87086; 87637; 96361; 96374; 96375; 99284; A9270; J2765; J7030; Q9967

== ENCOUNTER 2024-07-02 18:57 | Emergency (ER) | payer OTHER, SELFPAY ==
--- NOTE | ~2024-07-02 | XR_ITS ---
Left Knee Technique: AP, lateral, and oblique views were obtained. Clinical History: Pain Findings: No fracture or dislocation is seen. Osseous alignment is anatomic. Joint spaces are preserv ed without degenerative or erosive change. Soft tissues are unremarkable. No joint effusion is seen. Impression: Unremarkable left knee radiographs. Reviewed, dictated and finalized at location . Impression: Unremarkable left knee radiographs.
--- NOTE | ~2024-07-02 | CT_ITS ---
CT of the Abdomen and Pelvis: Indication: Abdominal pain Technique: 2.5 mm axial scans were obtained through the abdomen and pelvis following intravenous adm inistration of 100 cc of Omnipaque 350. Dose reduction technique was used on this scan by utilizing a utomated exposure control and iterative reconstruction technique. The dose-length product (DLP) was 4 54.79 mGy-cm. COMPARISON: 04/12/2024 Findings: Scans through the lung bases are unremarkable. The liver, spleen, pancreas, adrenals and kidneys are within normal limits. Cholecystectomy clips are present. No evidence of aortic aneurysm. No lymphadenopathy. No bowel obstruction or bowel wall thickening. There is no evidence to suggest acute appendicitis. Images through the pelvis were performed. Urinary bladder unremarkable. Uterine fibroids are present, some of which are exophytic. No ascites. Impression: No acute abnormality. Uterine fibroids. Reviewed, dictated and finalized at [facility]. Impression: No acute abnormality. Uterine fibroids.
--- OUTSIDE RECORDS SUMMARY | 2024-07-02 18:59 | XMS_ITS | Clinical Summary ---
Author Organization [facility] Address [facility] [place] [address] Care Team Providers Care Homicide Squad Sergeant Name Role Phone Supriya Hay Primary Care Provider [phone] Allergies Active Allergy Reactions Criticality Noted Date [...] pancreas determined by biopsy 12/02/19 22 Immunizations Immunization Administration Dates Next Due MMR (MMRII) 05/21/1994 [...] 60 12/01/2021 8:12 PM CDT Temperature 36.2 C (97.2 F) 12/01/2021 5:02 PM CDT Respiratory Rate 18 12/01/2021 5:02 PM CDT [...] HPV 05/16/2021 Mammogram Screening 2021 COVID-19 Vaccine (2023-2 5 season) 2023 HPV Vaccines Aged Out No longer eligi ble based on patient's age to complete this topic Meningococcal B Vaccine Aged Out No l onger eligible based on patient's age to complete this topic Meningococcal Vaccine Aged Out No moriah chaim eligible based on patient's age to complete this topic Pneumococcal Vaccine: Pediat rics (0 to 5 Years) and At-Risk Patients (6 to 49 Years) Aged Out No longer eligi ble based on patient's age to complete this topic RSV Immunizations Under 20 Months Aged Out No longer eligible based on patient's age to complete this topic Insurance [employer] Care Teams Homicide Squad Sergeant Relationship Specialty Start Date End Date Supriya Hay PA [address] [place] [address] PCP - General PHYSICIAN ARCHERY INSTRUCTOR 02/25/21
--- OUTSIDE RECORDS SUMMARY | 2024-07-02 18:59 | XMS_ITS | Encounter Summary ---
Author Organization [facility] Address [facility], [facility] [place] [address] Care Team Providers Care Bracelet Former Name Role Phone Elana Weathers MD Primary Care Provider [phone] Supriya Hay Primary Care Provider [phone] Encounter Details Date Type Department Care Team (Late st Contact Info) Description 11/11/2020 Prep for Procedure [facility] [place] [address] Dylan Naidu, DO Social History Tobacco Use Types Packs/Day Years [...] Rule Out 02/25/2021 02/25/2021 02/25/2021 11:29 AM [employer] COVID-19 Rule Out 03/31/2021 03/31/2021 03/31/2021 11:37 PM [employer] COVID-19 Confirmed 03/31/2021 03/31/2021 12:34 AM [employer] documented as of this encounter Care Teams Bracelet Former Relationship Specialty Start Date End Date Elana Weathers MD [address] [place] [address] PCP - General FAMILY PRACTICE 11/12/20 02/24/21 Supriya Hay PA [address] [place] [address] PCP - General PHYSICIAN ELECTRICIAN AIRCRAFT 02/25/21 documented as of this encounter
--- OUTSIDE RECORDS SUMMARY | 2024-07-02 18:59 | XMS_ITS | Referral Summary ---
Author Organization [facility] [place] [facility] Address [address] [place] [address] Care Team Providers Care Training Mgr Name Role Phone Supriya Hay Primary Care Provider [phone]- [phone] Helio Carrera MD Unavailable [phone]- [phone] Encounters Date Type Department Care Team Description 05/22/2024 Results Follow-Up [facility] [address] [place] [address] Percy Hutchinson MD 05/15/2024 3:52 PM FOOD EQUIPMENT SERVICE TECHNICIAN - 05/15/2024 11:59 PM FOOD EQUIPMENT SERVICE TECHNICIAN Hospital Encounter [facility] PATHOLOGY [address] [facility] 3rd [place] [address] Intramural leiomyoma of uterus; Abnormal uterine bleeding; Dysmenorrhea Discharge Disposition: Discharge to home or self care 05/15/2024 12:45 PM FOOD EQUIPMENT SERVICE TECHNICIAN - 05/15/2024 11:59 PM FOOD EQUIPMENT SERVICE TECHNICIAN Hospital Encounter [facility] - Ultrasound [address] [facility], 7th Floor, [address] [place] [address] Abnormal uterine bleeding Discharge Disposition: Discharge to home or self care 05/15/2024 2:30 PM FOOD EQUIPMENT SERVICE TECHNICIAN Office Visit [facility] Obstetrics and Gynecology [address] [place] [address] 13th [place] [address] [place] [phone] Percy Hutchinson MD Intramural leiomyoma of uterus (Primary Dx); Abnormal uterine bleeding; Dysmenorrhea; Morbid obesity (HCC) 05/12/2024 Telephone [facility] Obstetrics and Gynecology [address] [facility] ([place], [place] Outpatient [facility] 7th Floor [address] [place] [address] Norma Blevins RN Follow-up 04/28/2024 Telephone [facility] Maternal- Medicine [address] [facility] 7th Floor [address] [place] [phone] Luciana Fuller, BED BUG EXTERMINATOR Ultrasound 04/18/[address] [place] [phone] Supriya Hay PA Medical Question/Miscellane ous 04/17/2024 Orders Only [facility] Obstetrics and Gynecology [address] [place] [address] Floor [address] [place] [phone] Percy Hutchinson MD Abnormal uterine bleeding (Primary Dx) 04/14/[address] [place] [phone] Supriya Hay PA Medical Question/Miscellane ous 04/14/2024 10:30 AM FOOD EQUIPMENT SERVICE TECHNICIAN Office Visit [address] [place] [phone] Supriya Hay PA Subacute cough (Primary Dx); Left upper quadrant abdominal pain; Nausea; Soreness of tongue; Obesity (BMI 30.0-34.9); BMI 33.0-33.9,adult 04/05/2024 2:30 PM FOOD EQUIPMENT SERVICE TECHNICIAN Office Visit [address] [place] [phone] Supriya Hay PA Soreness of tongue (Primary Dx); Respiratory infection; BMI 33.0-33.9,adult; Obesity (BMI 30.0-34.9) from Last 3 Months Allergies Active Allergy Reactions Criticality Noted Date Comments Clindamycin Shortness of breath High 05/15/2016 Sulfa (Sulfonamide Antibiotics) Itching Low 04/23 Medications dicyclomine (BENTYL) 20 mg tablet Take 1 tablet (20 mg total) by mouth every 6 (six) hours Active [facility] relugolix/E2/SHIVA (/MVT-6 ) 40 mg/1 mg/0.5 mg tablet Take 1 tablet by mouth daily 11/04/19 24 Active ibuprofen (ADVIL,MOTRIN) 600 mg tablet Take 1 tablet (600 mg total) by mouth every 8 (eight) hours as needed for pain 30 tablet 04/14/19 25 Active ondansetron ODT (ZOFRAN-ODT) 4 mg disintegrating tablet DISSOLVE 1 TABLET(4 MG) ON THE TONGUE EVERY 8 HOURS NEEDED FOR NAUSEA OR VOMITING 20 tablet 1 06/28/19 25 Active ondansetron ODT (ZOFRAN-ODT) 4 mg disintegrating tablet Take 1 tablet (4 mg total) by mouth every 8 (eight) hours as needed for nausea or vomiting 20 tablet 1 05/07/19 25 025 Discontinued Active Problems Problem Noted Date Diagnosed Date Morbid obesity 05/15/2024 Left upper quadrant abdominal pain 04/23/2024 Assessment & Plan (04/23/2024 8:00 PM FOOD EQUIPMENT SERVICE TECHNICIAN): Patient continues to have left mid axillary line just above and below the diaphragm. Suspect this is still pain from coughing. Will send out Robitussin with codeine and ibuprofen to use as needed. If symptoms persist may need additional imaging. Subacute cough 04/23/2024 Assessment & Plan (04/23/2024 8:00 PM FOOD EQUIPMENT SERVICE TECHNICIAN): Patient continues to have left mid axillary line just above and below the diaphragm. Suspect this is still pain from coughing. Will send out Robitussin with codeine and ibuprofen to use as needed. If symptoms persist may need additional imaging. Nausea 04/23/2024 Assessment & Plan (04/23/2024 8:02 PM FOOD EQUIPMENT SERVICE TECHNICIAN): Persistent nausea. She has been responding to the Zofran. Will make more available. Continue to monitor. Right now her pain is all in the left side. The imaged area of possible colitis is on the right. Advised if she would start to have right upper quadrant pain that we may need to start her on antibiotic. She verbalizes understanding will continue to monitor closely. Encouraged to reintroduce foods with a brat diet and have dairy and fatty foods be the last thing that she works back in Fatigue 12/19/2023 Assessment & Plan (12/19/2023 8:33 PM CDT): Probably multifactorial. Check labs and followup to re-evaluate Soreness of tongue 12/19/2023 Assessment & Plan (04/23/2024 8:00 PM FOOD EQUIPMENT SERVICE TECHNICIAN): Persistent soreness of the tongue. Will make a referral to an additional ENT since was unable to connect with the previous 1. Assessment & Plan (04/17/2024 12:28 AM FOOD EQUIPMENT SERVICE TECHNICIAN): Persistent soreness of the tongue without good explanation. Recommend referral to ENT. New referral placed Assessment & Plan (12/19/2023 8:34 PM CDT): [...] share as well as heart strings in [place] for support. Discussed medications including risks benefits [...] 05/13/2023 Respiratory infection 01/24/2023 Assessment & Plan (04/17/2024 12:26 AM FOOD EQUIPMENT SERVICE TECHNICIAN): Recent RSV positive. Has had a persistent cough. Completed prednisone 40 mg x 5 days. She has had Tessalon Perles but has not seen a significant improvement. Will send out Symbicort to see if this helps with the breathing. Continue to monitor closely Assessment & Plan (01/24/2023 9:58 PM FOOD EQUIPMENT SERVICE TECHNICIAN): Start antibiotic, antihistamine (Claritin OR Zyrtec), Mucinex 12hour and Steroid nasal spray (Flonase). Push fluids. Rest. Supportive care. If sxs worsen or don\'t improve, pt is to followup in the office. Patient struggles with yeast infections when she is on an antibiotic so will send out a Diflucan. Obesity (BMI 30.0-34.9) 01/13/2023 Assessment & Plan (04/14/2024 11:12 AM FOOD EQUIPMENT SERVICE TECHNICIAN): Discussed the patient's BMI. The BMI is above average. BMI management plan is completed. BMI Follow-up includes: nutrition counseling, exercise counseling and education provided. Assessment & Plan (04/05/2024 4:09 PM FOOD EQUIPMENT SERVICE TECHNICIAN): Discussed the patient's BMI. The BMI is above average. BMI management plan is completed. BMI Follow-up includes: nutrition counseling, exercise counseling and education provided. Assessment & Plan (12/06/2023 2:56 PM CDT): [...] provided. BMI 33.0-33.9,adult 01/13/2023 Assessment & Plan (04/14/2024 11:12 AM FOOD EQUIPMENT SERVICE TECHNICIAN): Discussed the patient's BMI. The BMI is above average. BMI management plan is completed. BMI Follow-up includes: nutrition counseling, exercise counseling and education provided. Assessment & Plan (04/05/2024 4:09 PM FOOD EQUIPMENT SERVICE TECHNICIAN): Discussed the patient's BMI. The BMI is above average. BMI management plan is completed. BMI Follow-up includes: nutrition counseling, exercise counseling and education provided. Assessment & Plan (12/06/2023 2:56 PM CDT): [...] She has had a negative DVT at [facility]. She has absolutely no swelling no [...] scheduled. Assessment & Plan (02/14/2022 3:12 PM FOOD EQUIPMENT SERVICE TECHNICIAN): Workup is negative. Suspect benign lesion by [...] by Radiology. Will follow-up pending these results. [facility] Chronic pain of left knee 06/04/2020 Left leg pain 05/24/2020 Assessment & Plan (05/24/2020 8:28 PM FOOD EQUIPMENT SERVICE TECHNICIAN): Persistent pain after a fall about 3 [...] needed. Assessment & Plan (01/24/2023 9:57 PM FOOD EQUIPMENT SERVICE TECHNICIAN): Encouraged patient to follow low fat/low chol diet like the Mediterranean diet. Increase good fats in the diet. Increase exercise. Monitor labs as needed. Assessment & Plan (05/24/2020 8:30 PM FOOD EQUIPMENT SERVICE TECHNICIAN): Encouraged patient to follow fat/low chol diet like the Mediterranean diet. Increase good fats in the diet. Increase exercise. Monitor labs as needed. If not enough change with diet/exercise will need to start statin due to LDL. Migraine without aura and wi thout status migrainosus, not intractable 03/01/2020 Assessment & Plan (05/24/2020 8:29 PM FOOD EQUIPMENT SERVICE TECHNICIAN): Continue with the Maxalt. Continue to monitor as was difficult to see pattern with this fall as it is negatively affecting her sleep patterns. Mobic may help is tension component Assessment & Plan (03/01/2020 10:07 PM FOOD EQUIPMENT SERVICE TECHNICIAN): Discussed possible triggers. Start Maxalt prn. Get regular rest/exercise. Check labs. Bring diary to next visit with [facility]. Chronic midline low back pain without sciatica 1 05/02/2019 Assessment & Plan (03/01/2020 10:15 PM FOOD EQUIPMENT SERVICE TECHNICIAN): Encouraged exercise, stretching, walking and weight loss. [...] provided. Assessment & Plan (05/23/2020 2:13 PM FOOD EQUIPMENT SERVICE TECHNICIAN): Obesity is unchanged. Discussed the patient's BMI. [...] provided. Assessment & Plan (05/23/2020 2:13 PM FOOD EQUIPMENT SERVICE TECHNICIAN): Obesity is unchanged. Discussed the patient's BMI. The BMI is above average. BMI management plan is completed. BMI Follow-up includes: nutrition counseling, exercise counseling and education provided. Diabetes mellitus screening 03/01/2020 10/05/2023 Assessment & Plan (01/24/2023 9:57 PM FOOD EQUIPMENT SERVICE TECHNICIAN): Check labs Assessment & Plan (03/01/2020 10:06 PM FOOD EQUIPMENT SERVICE TECHNICIAN): Check labs Lipid screening 03/01/2020 10/05/2023 Assessment & Plan (01/24/2023 9:57 PM FOOD EQUIPMENT SERVICE TECHNICIAN): Check labs Assessment & Plan (03/01/2020 10:06 PM FOOD EQUIPMENT SERVICE TECHNICIAN): Check labs Other fatigue 03/01/2020 10/05/2023 Assessment & Plan (01/24/2023 9:57 PM FOOD EQUIPMENT SERVICE TECHNICIAN): Probably multifactorial. Check labs and followup to re-evaluate Assessment & Plan (03/01/2020 10:07 PM FOOD EQUIPMENT SERVICE TECHNICIAN): Probably multifactorial. Check labs and followup to re-evaluate Annual physical exam 03/01/2020 021 Assessment & Plan (03/01/2020 10:06 PM FOOD EQUIPMENT SERVICE TECHNICIAN): Encouraged healthy lifestyle, good nutrition and exercise. Encouraged Calcium and Vitamin D and weight bearing exercise for bone health. Reviewed immunizations Reviewed age appropirate screenings. BMI 31.0-31.9,adult 02/28/2020 05/24/19 21 Assessment & Plan (02/28/2020 2:24 PM FOOD EQUIPMENT SERVICE TECHNICIAN): Obesity is unchanged. Discussed the patient's BMI. The BMI is above average. BMI management plan is completed. BMI Follow-up includes: nutrition counseling, exercise counseling and education provided. Obesity (BMI 30-39.9) 02/28/20202020 Assessment & Plan (03/01/2020 10:06 PM FOOD EQUIPMENT SERVICE TECHNICIAN): Obesity is unchanged. Discussed the patient's BMI. The BMI is above average. BMI management plan is completed. BMI Follow-up includes: nutrition counseling, exercise counseling and education provided Need for immunization against influenza 02/28/2020 12/03/2021 Assessment & Plan (03/01/2020 10:06 PM FOOD EQUIPMENT SERVICE TECHNICIAN): Encouraged vaccine. Reviewed risks/ benefits. Patient refuses and accepts risks. Immunizations Immunization Administration Dates Next Due Influenza, Unspecified 03/22/2024(Deferr ed: Patient Refused),03/22/2022(Deferred: Patient Refused),03/12/2022(Deferred: Patient Refused),03/22/2021(Deferred: [...] you have a drink containing alc ohol? Monthly or less 04/14/2024 Q2: How many drinks containi ng alcohol do you have on a typical day when you are drinking? 1 or 2 04/14/2024 Frequency of Binge Drinking Not on file 03/23 PHQ-2 Answer Date Recorded PHQ-2 Total Score (If total score is 3 or more points, staff should administer the PHQ-9) 0 04/14/2024 Comments No Sex and Gender Information Value Date Recorded Sex Assigned at Female 11/16/2022 3:54 PM CDT Legal Sex Female 12:02 AM FOOD EQUIPMENT SERVICE TECHNICIAN Gender Identity Female 11/16/2022 3:54 PM CDT Sexual Orientation Straight 11/16/2022 3: 54 PM CDT Last Filed Vital Signs Vital Sign Reading Time Taken Comments Blood Pressure 123/71 05/15/2024 2:17 PM FOOD EQUIPMENT SERVICE TECHNICIAN Pulse 79 05/15/2024 2:17 PM FOOD EQUIPMENT SERVICE TECHNICIAN Temperature 36.9 C (98.4 F) 05/15/2024 2:17 PM FOOD EQUIPMENT SERVICE TECHNICIAN Respiratory Rate 20 12/10/2022 2:27 PM CDT Oxygen Saturation 98% 05/15/2024 2:17 PM FOOD EQUIPMENT SERVICE TECHNICIAN Inhaled Oxygen Concentration - - Weight 81.9 kg (180 lb 8 oz) 05/15/2024 2:17 PM FOOD EQUIPMENT SERVICE TECHNICIAN Height 157.5 cm (5' 2.01 ) 05/15/2024 2:17 PM CS T Body Mass Index 33.01 05/15/2024 2:17 PM FOOD EQUIPMENT SERVICE TECHNICIAN Plan of Treatment Not on file Procedures Procedure Name Priority Date/Time Associated Diagnosis Comments SURGICAL PATHOLOGY Routine 05/15/2024 3:52 PM FOOD EQUIPMENT SERVICE TECHNICIAN Intramural leiomyoma of uterus Abnormal uterine bleeding Dysmenorrhea US PELVIS COMPLETE Schedule Routine, Read Routine (OP Routine) 05/15/2024 12:56 PM FOOD EQUIPMENT SERVICE TECHNICIAN Abnormal uterine bleeding SCREENING MAMMOGRAM BILATERAL W SREE Schedule Routine, Read Routine (OP Routine) 06/01/2023 2:45 PM CDT Screening mammogram, encounter for from Last 3 Months or Most Recently Relevant to Health Maintenance Results * Surgical pathology (05/15/2024 3:52 PM FOOD EQUIPMENT SERVICE TECHNICIAN) Tissue specimen (specimen) (Endometrial biopsy) 05/15/2024 3:52 PM FOOD EQUIPMENT SERVICE TECHNICIAN 05/15/2024 6:50 PM FOOD EQUIPMENT SERVICE TECHNICIAN Narrative PATHOLOGY [facility] - 05/17/2024 1:17 PM FOOD EQUIPMENT SERVICE TECHNICIAN EPIC results best viewed via link to PDF [facility] [place] [address] Note to Patients: This report may contain a detailed description of human tissue sent by a health care provider to the laboratory for pathologic evaluation. The content of this report is essential for diagnosis and may provide important critical findings. This information may be unfamiliar to patients to review without a medical professional present. It is advised that the patient review this report in the presence of a health care provider who can answer questions and explain the details. SURGICAL PATHOLOGY REPORT FINAL Patient Name: AZIZA LOCKHART Gender: F : 1980 (Age: 43) [address]: [address] [place] [phone] Hospital #: [id number] Taken:05/15/2024 Received:05/15/2024 Reported: 05/17/2024 Patient Type: [facility] SPECIMEN Service: UNKNOWN Location: Physician(s): Percy Hutchinson M.D. Diagnosis: Uterus, endometrium, biopsy - Detached superficial strips of inactive pattern endometrium in a background of mucin and acute inflammation - No evidence of hyperplasia or malignancy gu/05/17/2024 07:51 By this signature, I attest that the above diagnosis is based upon my personal examination of the slides(and/or other material indicated in the diagnosis). Evi Brewer M.D. Report Electronically Reviewed and Signed Out By Evi Brewer M.D. 05/17/2024 13:17:44 Microscopic Description and Comment: Microscopic examination substantiates the above cited diagnosis. Sukhjinder Aiken M.D. History: The patient is a 43-year-old woman presenting with intramural leiomyoma of uterus, abnormal uterine bleeding, and dysmenorrhea. Operative procedure: Endometrial biopsy. Specimen(s) Received: A: Endometrial biopsy Gross Description: Received in formalin, labeled with the patient s identifiers and EM Bx is an aggregate of mucinous and hemorrhagic material and possible included tissue (2.7 x 1.7 x 0.4 cm in aggregate). Labeled A1. Jar 0. sxst/05/16/2024 10:25 PA(s): Brenna Ellis By this signature, I attest that the above diagnosis is based upon my personal examination of the slides(and/or other material). Addenda/Procedures The performance characteristics of some immunohistochemical stains, fluorescence in-situ hybridization tests and immunophenotyping by flow cytometry cited in this report (if any) were determined by the Surgical Pathology and Flow Cytometry Departments at [facility] as part of an ongoing machined parts quality inspector program and in compliance with federally mandated regulations drawn from the Clinical Laboratory Improvement Act of 1988 (CLIA '88). Some of these tests rely on the use of analyte specific reagents and are subject to specific labeling requirements by the US Food and Drug Administration. Such diagnostic tests may only be performed in a facility that is certified by the Department of Health and Human Services as a high complexity laboratory under CLIA '88. The FDA has determined that such clearance or approval is not necessary. This test is used for clinical purposes. It should not be regarded as investigational or for research. Nevertheless, federal rules concerning the medical use of analyte specific reagents require that the following disclaimer be attached to the report: This test was developed and its performance characteristics determined by the Surgical Pathology and Flow Cytometry Departments of [facility]. It has not been cleared or approved by the U. S. Food and Drug Administration. IMAGES AND SCANNED DOCUMENTS, IF INCLUDED, ONLY VIEWABLE IN PDF VERSION OF REPORT Percy Hutchinson MD LAB PATHOLOGY ORDERABLES F inal Result PATHOLOGY [facility] 3rd Floor [place], [place] [phone] * US Pelvis Complete (05/15/2024 12:56 PM FOOD EQUIPMENT SERVICE TECHNICIAN) [place] No free fluid visualized VIEWPOINT Endometrial Thickness 3.6 mm&millim eters VIEWPOINT Anatomical Region Laterality Modality Pelvis N/A Ultrasound 05/15/2024 12:5 8 PM FOOD EQUIPMENT SERVICE TECHNICIAN Impressions 05/15/2024 4:00 PM FOOD EQUIPMENT SERVICE TECHNICIAN The uterus is anteverted and normal in size. The endometrial stripe measures 3.6 mm. There are four fibroids, largest mean diameter of 24 mm. Normal ovaries. There was no evidence of free fluid in the pelvis. Narrative Procedure Note Bee Sanabria MD - 05/15/2024 IMPRESSION: The uterus is anteverted and normal in size. The endometrial stripemeasures 3.6 mm. There are four fibroids, largest mean diameter of 24 mm.Normal ovaries. There was no evidence of free fluid in the pelvis. us Percy Hutchinson MD IMG US PROCEDURES Final Re sult * Screening Mammogram Bilateral W Sree (06/01/2023 [...] OVERALL FINAL ASSESSMENT: BI-RADS CATEGORY 1: Negative. Procedure Note Shannon Saldana MD - 2023 [...] Most Recently Relevant to Health Maintenance Insurance [facility] Advance Directives For more information, please contact: [phone] * Full Code (Latest Code Status on File) Date Activated Date Inactivated Comments 12/23/2021 8:04 AM 12/23/2021 4:20 PM Care Teams Training Mgr Relationship Specialty Start Date End Date Supriya Hay PA [address] [facility] [address] [place] [address] PCP - General Internal Medicine 02/21/20 Helio Carrera MD [address] [place] [address] Referring Physician Obstetrics and Gynecology 09/03/21
--- OUTSIDE RECORDS SUMMARY | 2024-07-02 18:59 | XMS_ITS | Clinical Summary ---
Author Organization [facility] at the [facility] Address [address] [place] [address] Care Team Providers Care Director Of Rehabilitation Name Role Phone Supriya Hay Primary Care Provider [phone] Helio Carrera MD Unavailable Allergies Active Allergy Reactions Criticality Noted Date Comments Clindamycin Shortness of breath High 05/15/2016 Sulfa (Sulfonamide Antibiotics) Itching Low 04/23 Medications dicyclomine (BENTYL) 20 mg tablet Take 1 tablet (20 mg total) by mouth every 6 (six) hours Active INV-WU relugolix/E2/SHIVA (/MVT-6 ) 40 mg/1 mg/0.5 mg [...] 04/23/2024 Assessment & Plan (04/23/2024 8:00 PM ENTRY LEVEL PROJECT ENGINEER): Patient continues to have left mid axillary line just above and below the diaphragm. Suspect this is still pain from coughing. Will send out Robitussin with codeine and ibuprofen to use as needed. If symptoms persist may need additional imaging. Subacute cough 04/23/2024 Assessment & Plan (04/23/2024 8:00 PM ENTRY LEVEL PROJECT ENGINEER): Patient continues to have left mid axillary line just above and below the diaphragm. Suspect this is still pain from coughing. Will send out Robitussin with codeine and ibuprofen to use as needed. If symptoms persist may need additional imaging. Nausea 04/23/2024 Assessment & Plan (04/23/2024 8:02 PM ENTRY LEVEL PROJECT ENGINEER): Persistent nausea. She has been responding to [...] 12/19/2023 Assessment & Plan (04/23/2024 8:00 PM ENTRY LEVEL PROJECT ENGINEER): Persistent soreness of the tongue. Will make a referral to an additional ENT since was unable to connect with the previous 1. Assessment & Plan (04/17/2024 12:28 AM ENTRY LEVEL PROJECT ENGINEER): Persistent soreness of the tongue without good [...] share as well as heart strings in [place] for support. Discussed medications including risks benefits [...] 01/24/2023 Assessment & Plan (04/17/2024 12:26 AM ENTRY LEVEL PROJECT ENGINEER): Recent RSV positive. Has had a persistent cough. Completed prednisone 40 mg x 5 days. She has had Tessalon Perles but has not seen a significant improvement. Will send out Symbicort to see if this helps with the breathing. Continue to monitor closely Assessment & Plan (01/24/2023 9:58 PM ENTRY LEVEL PROJECT ENGINEER): Start antibiotic, antihistamine (Claritin OR Zyrtec), Mucinex 12hour and Steroid nasal spray (Flonase). Push fluids. Rest. Supportive care. If sxs worsen or don\'t improve, pt is to followup in the office. Patient struggles with yeast infections when she is on an antibiotic so will send out a Diflucan. Obesity (BMI 30.0-34.9) 01/13/2023 Assessment & Plan (04/14/2024 11:12 AM ENTRY LEVEL PROJECT ENGINEER): Discussed the patient's BMI. The BMI is above average. BMI management plan is completed. BMI Follow-up includes: nutrition counseling, exercise counseling and education provided. Assessment & Plan (04/05/2024 4:09 PM ENTRY LEVEL PROJECT ENGINEER): Discussed the patient's BMI. The BMI is [...] 01/13/2023 Assessment & Plan (04/14/2024 11:12 AM ENTRY LEVEL PROJECT ENGINEER): Discussed the patient's BMI. The BMI is above average. BMI management plan is completed. BMI Follow-up includes: nutrition counseling, exercise counseling and education provided. Assessment & Plan (04/05/2024 4:09 PM ENTRY LEVEL PROJECT ENGINEER): Discussed the patient's BMI. The BMI is [...] She has had a negative DVT at [facility]. She has absolutely no swelling no symptoms [...] scheduled. Assessment & Plan (02/14/2022 3:12 PM ENTRY LEVEL PROJECT ENGINEER): Workup is negative. Suspect benign lesion by [...] Radiology. Will follow-up pending these results. Prefers [facility] Chronic pain of left knee 06/04/2020 Left leg pain 05/24/2020 Assessment & Plan (05/24/2020 8:28 PM ENTRY LEVEL PROJECT ENGINEER): Persistent pain after a fall about 3 [...] needed. Assessment & Plan (01/24/2023 9:57 PM ENTRY LEVEL PROJECT ENGINEER): Encouraged patient to follow low fat/low chol diet like the Mediterranean diet. Increase good fats in the diet. Increase exercise. Monitor labs as needed. Assessment & Plan (05/24/2020 8:30 PM ENTRY LEVEL PROJECT ENGINEER): Encouraged patient to follow fat/low chol diet like the Mediterranean diet. Increase good fats in the diet. Increase exercise. Monitor labs as needed. If not enough change with diet/exercise will need to start statin due to LDL. Migraine without aura and wi thout status migrainosus, not intractable 03/01/2020 Assessment & Plan (05/24/2020 8:29 PM ENTRY LEVEL PROJECT ENGINEER): Continue with the Maxalt. Continue to monitor as was difficult to see pattern with this fall as it is negatively affecting her sleep patterns. Mobic may help is tension component Assessment & Plan (03/01/2020 10:07 PM ENTRY LEVEL PROJECT ENGINEER): Discussed possible triggers. Start Maxalt prn. Get regular rest/exercise. Check labs. Bring diary to next visit with VALDE[facility]. Chronic midline low back pain without sciatica 1 05/02/2019 Assessment & Plan (03/01/2020 10:15 PM ENTRY LEVEL PROJECT ENGINEER): Encouraged exercise, stretching, walking and weight loss. Resolved Problems Problem Noted Date Diagnosed Date Resolved Date Obesity (BMI 30-39.9) 01/22/20222022 Assessment & Plan (01/22/2022 2:15 PM CDT): Obesity is unchanged. Discussed the patient's BMI. The BMI is above average. BMI management plan is completed. BMI Follow-up includes: nutrition counseling, exercise counseling and education provided. BMI 34.0-34.9,adult 01/22/2022 01/14/20 Assessment & Plan (01/22/2022 2:15 PM CDT): [...] provided. Assessment & Plan (05/23/2020 2:13 PM ENTRY LEVEL PROJECT ENGINEER): Obesity is unchanged. Discussed the patient's BMI. [...] provided. Assessment & Plan (05/23/2020 2:13 PM ENTRY LEVEL PROJECT ENGINEER): Obesity is unchanged. Discussed the patient's BMI. The BMI is above average. BMI management plan is completed. BMI Follow-up includes: nutrition counseling, exercise counseling and education provided. Diabetes mellitus screening 03/01/2020 10/05/2023 Assessment & Plan (01/24/2023 9:57 PM ENTRY LEVEL PROJECT ENGINEER): Check labs Assessment & Plan (03/01/2020 10:06 PM ENTRY LEVEL PROJECT ENGINEER): Check labs Lipid screening 03/01/2020 10/05/2023 Assessment & Plan (01/24/2023 9:57 PM ENTRY LEVEL PROJECT ENGINEER): Check labs Assessment & Plan (03/01/2020 10:06 PM ENTRY LEVEL PROJECT ENGINEER): Check labs Other fatigue 03/01/2020 10/05/2023 Assessment & Plan (01/24/2023 9:57 PM ENTRY LEVEL PROJECT ENGINEER): Probably multifactorial. Check labs and followup to re-evaluate Assessment & Plan (03/01/2020 10:07 PM ENTRY LEVEL PROJECT ENGINEER): Probably multifactorial. Check labs and followup to re-evaluate Annual physical exam 03/01/2020 021 Assessment & Plan (03/01/2020 10:06 PM ENTRY LEVEL PROJECT ENGINEER): Encouraged healthy lifestyle, good nutrition and exercise. Encouraged Calcium and Vitamin D and weight bearing exercise for bone health. Reviewed immunizations Reviewed age appropirate screenings. BMI 31.0-31.9,adult 02/28/2020 05/24/19 21 Assessment & Plan (02/28/2020 2:24 PM ENTRY LEVEL PROJECT ENGINEER): Obesity is unchanged. Discussed the patient's BMI. The BMI is above average. BMI management plan is completed. BMI Follow-up includes: nutrition counseling, exercise counseling and education provided. Obesity (BMI 30-39.9) 02/28/20202020 Assessment & Plan (03/01/2020 10:06 PM ENTRY LEVEL PROJECT ENGINEER): Obesity is unchanged. Discussed the patient's BMI. The BMI is above average. BMI management plan is completed. BMI Follow-up includes: nutrition counseling, exercise counseling and education provided Need for immunization against influenza 02/28/2020 12/03/2021 Assessment & Plan (03/01/2020 10:06 PM ENTRY LEVEL PROJECT ENGINEER): Encouraged vaccine. Reviewed risks/ benefits. Patient refuses and accepts risks. Encounters Date Type Department Care Team Description 05/22/2024 Results Follow-Up [facility] [address] [place] [address] Percy Hutchinson MD 05/15/2024 3:52 PM ENTRY LEVEL PROJECT ENGINEER - 05/15/2024 11:59 PM ENTRY LEVEL PROJECT ENGINEER Hospital Encounter [facility] PATHOLOGY [address] [facility] 3rd [place] [address] Intramural leiomyoma of uterus; Abnormal uterine bleeding; Dysmenorrhea Discharge Disposition: Discharge to home or self care 05/15/2024 2:30 PM ENTRY LEVEL PROJECT ENGINEER Office Visit [facility] [address] [place] [address] 13th [place] [address] [place] [address] Percy Hutchinson MD Intramural leiomyoma of uterus (Primary Dx); Abnormal uterine bleeding; Dysmenorrhea; Morbid obesity (HCC) 05/15/2024 12:45 PM ENTRY LEVEL PROJECT ENGINEER - 05/15/2024 11:59 PM ENTRY LEVEL PROJECT ENGINEER Hospital Encounter [facility] - Ultrasound [address] [place] [address], [address]th [facility], [address] [place] [address] Abnormal uterine bleeding Discharge Disposition: Discharge to home or self care 05/12/2024 Telephone [facility] [address] [place] [address] [address] [place] [address] Norma Blevins, PEPITO Follow-up 04/28/2024 Telephone [facility] Maternal- Medicine [address] [place] [address] Floor [address] [place] [address] Luciana Fuller, [facility] Ultrasound 04/18/2024 Telephone [facility] Medicine [address] [place] [address] [address] [place] [address] Supriya Hay PA Medical Question/Miscellane ous 04/17/2024 Orders Only [facility] [address] [place] [address] 7th Floor [address] [place] [id number] Percy Hutchinson MD Abnormal uterine bleeding (Primary Dx) 04/14/2024 10:30 AM ENTRY LEVEL PROJECT ENGINEER Office Visit [facility] Medicine [address] [place] [address] [address] [place] [address] Supriya Hay PA Subacute cough (Primary Dx); Left upper quadrant abdominal pain; Nausea; Soreness of tongue; Obesity (BMI 30.0-34.9); BMI 33.0-33.9,adult 04/14/2024 Telephone [facility] [address] [facility] [place] [address] Supriya Hay PA Medical Question/Miscellane ous 04/05/2024 2:30 PM ENTRY LEVEL PROJECT ENGINEER Office Visit [facility] [address] [facility] [place] [address] Supriya Hay PA Soreness of tongue (Primary Dx); Respiratory infection; BMI 33.0-33.9,adult; Obesity (BMI 30.0-34.9) from Last 3 Months Immunizations Immunization Administration Dates Next Due Influenza, [...] PM CDT Legal Sex Female 12:02 AM ENTRY LEVEL PROJECT ENGINEER Gender Identity Female 11/16/2022 3:54 PM [...] Comments Blood Pressure 123/71 05/15/2024 2:17 PM ENTRY LEVEL PROJECT ENGINEER Pulse 79 05/15/2024 2:17 PM ENTRY LEVEL PROJECT ENGINEER Temperature 36.9 C (98.4 F) 05/15/2024 2:17 PM ENTRY LEVEL PROJECT ENGINEER Respiratory Rate 20 12/10/2022 2:27 PM CDT Oxygen Saturation 98% 05/15/2024 2:17 PM ENTRY LEVEL PROJECT ENGINEER Inhaled Oxygen Concentration - - Weight 81.9 kg (180 lb 8 oz) 05/15/2024 2:17 PM ENTRY LEVEL PROJECT ENGINEER Height 157.5 cm (5' 2.01 ) 05/15/2024 2:17 PM CS T Body Mass Index 33.01 05/15/2024 2:17 PM ENTRY LEVEL PROJECT ENGINEER Plan of Treatment Health Maintenance Due Date Last Done Comments Cervical Cancer Screening 1980 Hepatitis C Screening 1980 Varicella Vaccines (1 of 2 - 13+ 2-dose series) 1994 DTaP/Tdap/Td Vaccine (1 - Tdap) 12/04/1995 12/03/1995 Hepatitis B Screening 06/03/1999 Regular Well Visit/Exam 18-64 06/03/1999 Breast Cancer Screening-Mammogram 05/31/2024 06/01/2023, 10/29/2022, 09/03/2021 Influenza Vaccine (Season Ended) 2024 Depression Screening 04/14/2025 04/14/2024, 04/05/2024, 12/06/2023, Additional history exists HPV Vaccines Aged Out No longer eligi ble based on patient's age to complete this topic Pneumococcal vaccine <65 Aged Out No longer eligible based on patient's age to complete this topic Procedures Procedure Name Priority Date/Time Associated Diagnosis Comments SURGICAL PATHOLOGY Routine 05/15/2024 3:52 PM ENTRY LEVEL PROJECT ENGINEER Intramural leiomyoma of uterus Abnormal uterine bleeding Dysmenorrhea US PELVIS COMPLETE Schedule Routine, Read Routine (OP Routine) 05/15/2024 12:56 PM ENTRY LEVEL PROJECT ENGINEER Abnormal uterine bleeding SCREENING MAMMOGRAM BILATERAL W SREE Schedule Routine, Read Routine (OP Routine) 06/01/2023 2:45 PM CDT Screening mammogram, encounter for from Last 3 Months or Most Recently Relevant to Health Maintenance Results * Surgical pathology (05/15/2024 3:52 PM ENTRY LEVEL PROJECT ENGINEER) Tissue specimen (specimen) (Endometrial biopsy) 05/15/2024 3:52 PM ENTRY LEVEL PROJECT ENGINEER 05/15/2024 6:50 PM ENTRY LEVEL PROJECT ENGINEER Narrative PATHOLOGY [facility] - 05/17/2024 1:17 PM ENTRY LEVEL PROJECT ENGINEER EPIC results best viewed via link to PDF [facility] [place] [address] Note to Patients: This report may contain [...] Gender: F : 1980 (Age: 43) Address: [address] [place] [address] [place] [address] Hospital #: [id number] Taken:05/15/2024 Received:05/15/2024 Reported: 05/17/2024 Patient Type: [facility] SPECIMEN Service: UNKNOWN Location: Physician(s): Percy [...] Surgical Pathology and Flow Cytometry Departments at [facility] as part of an ongoing quality assurance tester program and in compliance with federally mandated [...] Surgical Pathology and Flow Cytometry Departments of [facility]. It has not been cleared or approved by the U. S. Food and Drug Administration. IMAGES AND SCANNED DOCUMENTS, IF INCLUDED, ONLY VIEWABLE IN PDF VERSION OF REPORT Percy Hutchinson MD LAB PATHOLOGY ORDERABLES F inal Result PATHOLOGY [facility] 3rd Floor [place], [place] [phone] * US Pelvis Complete (05/15/2024 12:56 PM ENTRY LEVEL PROJECT ENGINEER) Cul de Sac No free fluid visualized VIEWPOINT Endometrial Thickness 3.6 mm&millim eters VIEWPOINT Anatomical Region Laterality Modality Pelvis N/A Ultrasound 05/15/2024 12:5 8 PM ENTRY LEVEL PROJECT ENGINEER Impressions 05/15/2024 4:00 PM ENTRY LEVEL PROJECT ENGINEER The uterus is anteverted and normal in [...] evidence of free fluid in the pelvis. Percy Hutchinson MD IMG US PROCEDURES Final [...] Most Recently Relevant to Health Maintenance Insurance [facility] [address] Advance Directives For more information, please contact: [phone] * Full Code (Latest Code Status on File) Date Activated Date Inactivated Comments 12/23/2021 8:04 AM 12/23/2021 4:20 PM Care Teams Director Of Rehabilitation Relationship Specialty Start Date End Date Supriya Hay PA [address] [facility] [address] [place] [address] PCP - General Internal Medicine 02/21/20 Helio Carrera MD [address] [place] [address] Referring Physician Obstetrics and Gynecology 09/03/21
--- OUTSIDE RECORDS SUMMARY | 2024-07-02 18:59 | XMS_ITS | Encounter Summary ---
Author Organization [facility] Address [address] [place] [address] Care Team Providers Care Corporation Lawyer Name Role Phone Supriya Hay Primary Care Provider [phone] Encounter Details Date Type Department Care Team (Late st Contact Info) Description 03/24/2021 Prep for Procedure [facility] [place] [address] Dylan Naidu, DO Social History Tobacco Use [...] COVID-19? No / Unsure 02/24/2021 1:47 PM HAND TOUCH UP PAINTER documented as of this encounter Plan of Treatment Not on file documented as of this encounter Results * (ABNORMAL) CORONAVIRUS (COVID 19) (03/31/2021 11:07 AM HAND TOUCH UP PAINTER) SPEC DESCRIPTION NASAL 03/31/19 11:07 AM HAND TOUCH UP PAINTER [facility] CORONAVIRUS SARS COV 2 PCR (RESP) POSITIVE(A A) NEGATIVE 03/31/2021 11:37 PM HAND TOUCH UP PAINTER [facility] Comment: THE SARS-CoV-2 TEST HAS BEEN AUTHORIZED BY THE FDA UNDER AN EUA FOR USE BY AUTHORIZED LABORATORIES. PERFORMED BY NUCLEIC ACID AMPLIFICATION PCR FIRST TEST NO 03/31/2021 11:07 AM [facility] EMPLOYED IN HEALTHCARE NO 03/31/2021 11:07 AM HAND TOUCH UP PAINTER [facility] SYMPTOMATIC DEFINED BY CDC UNKNOWN 03/31/2021 11:07 AM HAND TOUCH UP PAINTER [facility] HOSPITALIZATION STATUS NO 03/31/2021 11:07 AM HAND TOUCH UP PAINTER [facility] PATIENT IN ICU NO 03/31/2021 11:07 AM [facility] RESIDENT OF REPLACED BY [facility] NO 03/31/2021 11:07 AM HAND TOUCH UP PAINTER [facility] UNKNOWN 03/31/2021 11:07 AM [facility] NASAL STRUCTURE / Unknown 03/31/2021 11:07 AM HAND TOUCH UP PAINTER Dylan Naidu DO MICROBIOLOGY - GENERAL ORDERABL ES Final Result [facility] [address] [place] [address], [place] [phone] [facility] [address] [place] [address], [place] [phone] documented in this encounter Visit Diagnoses Diagnosis Chronic constipation- Primary Unspecified constipation documented in this encounter Additional Health Concerns Infection Onset Date Last Indicated Resolved Time COVID-19 Rule Out 03/31/2021 03/31/2021 03/31/2021 11:37 PM HAND TOUCH UP PAINTER COVID-19 Confirmed 03/31/2021 03/31/2021 12:34 AM HAND TOUCH UP PAINTER documented as of this encounter Care Teams Corporation Lawyer Relationship Specialty Start Date End Date Supriya Hay PA [address] [place] [address] PCP - General PHYSICIAN PENSION ADMINISTRATOR 02/25/21 documented as of this encounter
--- OUTSIDE RECORDS SUMMARY | 2024-07-02 18:59 | XMS_ITS | Encounter Summary ---
Author Organization [facility] Address [facility] [place] [address] Care Team Providers Care Scrub Wheel Operator Name Role Phone Elana Weathers MD Primary Care Provider [phone] Supriya Hay Primary Care Provider [phone] Encounter Details Date Type Department Care Team (Late st Contact Info) Description 01/29/2021 Prep for Procedure [facility] [place] [address] Dylan Naidu, DO Social History Tobacco Use [...] Rule Out 02/25/2021 02/25/2021 02/25/2021 11:29 AM POMPOM MAKER COVID-19 Rule Out 03/31/2021 03/31/2021 03/31/2021 11:37 PM POMPOM MAKER COVID-19 Confirmed 03/31/2021 03/31/2021 12:34 AM POMPOM MAKER documented as of this encounter Care Teams Scrub Wheel Operator Relationship Specialty Start Date End Date Elana Weathers MD [address] [place] [address] PCP - General FAMILY PRACTICE 11/12/20 02/24/21 Supriya Hay PA [address] [place] [address] PCP - General PHYSICIAN ROLLER STAKER 02/25/21 documented as of this encounter
[2024-07-02 19:14] VITALS: BP 147/78; PULSE 77; RESP 16; TEMP 36.7; O2SAT 100
--- NOTE | 2024-07-02 19:33 | ECG_ITS ---
Test Date: 2024-07-02 19:48:00 Measurements Intervals Melissa Rate: 79 P: 35 CA: 150 QRS: 0 QRSD: 74 T: 43 QT: 346 QTc: 398 Interpretive Statements SINUS RHYTHM DELAYED PRECORDIAL R/S TRANSITION BORDERLINE ECG No previous ECG available for comparison Electronically Signed On 07-02-2024 20:38:54 CDT by Vicente Hanks D.O.
[2024-07-02 19:50] LABS: Basophils Percent Auto 0.3 % (0.2-1.2); Eosinophils Absolute Auto 0.1 K/mm3 (0-0.3); Hematocrit 39.8 % (37.0-47.0); Hemoglobin 13.3 g/dL (12.0-15.0); Immature Granulocyte Absolute 0.02 K/mm3 (0.00-0.031); Immature Granulocyte Percent A 0.3 % (0-0.5); Lymphocytes Percent Auto 34.2 % (18.3-44.2); Mean Corpuscular HGB Conc 33.4 g/dl (32-36); Mean Corpuscular Hemoglobin 29.4 pg (26-34); Mean Corpuscular Volume 88.1 fl (80-100); Mean Platelet Volume 11.3 fl (7.4-10.4); Monocytes Absolute Auto 0.3 K/mm3 (0.1-0.6); Monocytes Percent Auto 4.6 % (2.6-8.5); Neutrophils Percent Auto 59.6 % (45.5-73.1); Platelet Count Result 315 k/mm3 (150-375); Red Blood Count 4.52 M/mm3 (4.2-5.4); Red Cell Distribution Width 13.8 % (11.5-14.5); White Blood Count 6.7 K/mm3 (4.5-10.0)
--- NOTE | 2024-07-02 20:00 | ED_ITS ---
HPI - Nausea/Vomiting/Diarrhea General Chief complaint: Nausea/Vomiting/Diarrhea Stated complaint: Vomiting, abd pain Time Seen by Provider: 07/02/24 19:26 Source: patient Mode of arrival: ambulatory Limitations: no limitations History of Present Illness HPI Narrative: This is a 44 year old female that presents to the ER for abdominal pain. Ongoing over the last couple of days. Reports associated nausea and vomiting. Also endorses some chest discomfort. Denies fever, dysuria, diarrhea. She additionally endorses that she has had left knee pain. No recent injuries or trauma. Related Data Allergies Allergy/AdvReac Type Severity Reaction Status Date / Time clindamycin Allergy Unknown Unknown Verified 07/02/24 18:58 Sulfa (Sulfonamide Allergy Unknown Unknown Verified 07/02/24 18:58 Antibiotics) Review of Systems 2 Review of Systems: CONSTITUTIONAL: Denies fever CARDIOVASCULAR: Reports chest pain RESPIRATORY: Denies dyspnea. GASTROINTESTINAL: Reports abdominal pain, nausea, vomiting GENITOURINARY: Denies dysuria or hematuria. All systems reviewed & are unremarkable except as noted in HPI and below PMFSH Past Medical History Medical History Patient denies significant medical history Surgical History Surgical History History of cholecystectomy Family History Family History Mother Hypertension Family history of type 2 diabetes mellitus Father Patient's father is in good health Other Asthma Family history of thyroid disease Social History Social History Smoking status: Never smoker Second hand tobacco smoke exposure: No Alcohol intake: never Exam 2 Narrative: GENERAL: Well-appearing, well-nourished, and in no acute distress. HEAD: Normocephalic, atraumatic. EYES: EOMI. CHEST: Clear to auscultation. No respiratory distress. No wheezes rales or rhonchi HEART: Regular rate and rhythm. No murmur heard. Normal peripheral pulses. ABDOMEN: Soft, nondistended, normal active bowel sounds. Mild tenderness to palpation in the epigastrium, without guarding EXTREMITIES: Normal range of motion. No edema. Normal DP pulses SKIN: Warm, dry, no rash. NEURO: No focal deficits. Alert and oriented x3. PSYCH: Normal mood and affect Course Vital Signs Vital signs: Vital Signs Temperature 98.1 F 07/02/24 19:14 Pulse Rate 77 07/02/24 19:14 Respiratory Rate 16 07/02/24 19:14 Blood Pressure 147/78 H 07/02/24 19:14 Pulse Oximetry 100 07/02/24 19:14 Temperature 98.1 F 07/02/24 19:14 Pulse Rate 70 07/03/24 00:27 Respiratory Rate 14 07/03/24 00:27 Blood Pressure 123/80 07/03/24 00:27 Pulse Oximetry 100 07/03/24 00:27 MDM - Nausea/Vomiting/Diarrhea MDM Narrative Medical decision making narrative: Patient presents the emergency department for abdominal pain, nausea and vomiting. Additionally endorsing left knee pain without recent injury. She is afebrile and nontoxic appearing. Cbc without leukocytosis. Metabolic panel and lipase without concerning findings. Urine without evidence of infection. CT abdomen and pelvis without acute findings. Left knee x-ray without acute osseous abnormalities. Patient updated on her workup and agrees with plan of care. She is to follow-up with primary provider. She was given warnings to return ER Differential Diagnosis Differential diagnosis: Likely food poisoning, gastroenteritis, drug-induced nausea and vomiting, dehydration and other (knee sprain, arthritis, meniscal injury, GERD, gastritis, esophagitis) Lab Data Attestation: I reviewed the patient's lab results. 07/02/24 19:36 07/02/24 19:36 Labs: Lab Results 07/02/24 07/02/24 07/02/24 Range/Units 19:36 20:03 21:00 WBC 6.7 (4.5-10.0) K/mm3 RBC 4.52 (4.2-5.4) M/mm3 Hgb 13.3 (12.0-15.0) g/dL Hct 39.8 (37.0-47.0) % MCV 88.1 (80-100) fl MCH 29.4 (26-34) pg MCHC 33.4 (32-36) g/dl RDW 13.8 (11.5-14.5) % Plt Count 315 (150-375) k/mm3 MPV 11.3 H (7.4-10.4) fl Immature Gran % (Auto) 0.3 (0-0.5) % Neut % (Auto) 59.6 (45.5-73.1) % Lymph % (Auto) 34.2 (18.3-44.2) % Spencer % (Auto) 4.6 (2.6-8.5) % Eos % (Auto) 1.0 (0-4.4) % Baso % (Auto) 0.3 (0.2-1.2) % Lymph # (Auto) 2.30 (0.9-3.2) K/mm3 Spencer # (Auto) 0.3 (0.1-0.6) K/mm3 Eos # (Auto) 0.1 (0-0.3) K/mm3 Baso # (Auto) 0.0 (0.0-0.1) K/mm3 Abs Immat Gran (auto) 0.02 (0.00-0.031) K/mm3 Absolute Neuts (auto) 4.0 (1.3-6.7) K/mm3 Absolute Nucleated RBC 0.000 (0.0-0.012) K/mm3 Nucleated RBC % 0.0 (0.0-0.2) % Sodium 137 (137-145) mmol/L Potassium 3.8 (3.4-5.0) mmol/L Chloride 104 (98-107) mmol/L Carbon Dioxide 24 (22-30) mmol/L Anion Gap 9 (4-12) mmol/L BUN 12 (7-17) mg/dL Creatinine 0.99 (0.7-1.0) mg/dL Estim Creat Clear Calc 64 ml/min Estimated GFR > 60 (59 - ) Glucose 102 (65-110) mg/dL Calcium 9.4 (8.4-10.2) mg/dL Total Bilirubin 0.5 (0.2-1.3) mg/dL AST 21 (14-36) U/L ALT 29 (6-35) U/L Alkaline Phosphatase 74 (38-126) U/L Troponin I < 0.012 (0.000-0.034) ng/mL Total Protein 8.0 (6.3-8.2) g/dL Albumin 4.4 (3.5-5.1) g/dL Lipase 76 (23-300) U/L Urine Color Yellow (Yellow) Urine Appearance Turbid H (Clear) Urine pH 5.5 (5.0-9.0) Ur Specific [place] 1.025 (1.001-1.035) Urine Protein Negative (Negative) mg/dL Urine Glucose (UA) Negative (Negative) mg/dL Urine Ketones Trace H (Negative) mg/dL Ur Blood (Man) Negative (Negative) Urine Nitrate Negative (Negative) Urine Bilirubin Negative (Negative) Urine Urobilinogen 1.0 (<2.0) mg/dL Leukocyte Esterase Rfl Negative (Negative) MARIA ANTONIA/UL Urine RBC 21-50 H (0-2) /hpf Urine WBC 0-5 (0-3) /hpf Ur Squamous Epith Cells Occasional (Few) /hpf Uric Acid Crystals Present H (None) /hpf Urine Bacteria 2+ H /hpf Urine Casts 0-2 POC Urine HCG, Qual Negative (Negative) Urine Test Negative Imaging Data Radiologist's impression: CT abdomen and pelvis: No acute findings Left knee x-ray: No acute osseous findings ECG Data EKG #1: ECG completion date: 07/02/24 EKG Interpretation: normal rate, sinus rhythm, no ST changes and normal QT Critical Care Time Critical Care Time Critical Care Time: No Discharge Plan Discharge Clinical Impression: Abdominal pain, Acute pain of left knee Patient Disposition: Home Condition: Stable Instructions: Abdominal Pain (ED), Knee Pain (ED) Additional Instructions: Return to the ER if you experience fever, abdominal pain with nausea and vomiting, you are unable to keep down liquids or solids, redness and swelling of your leg, numbness, or any other symptoms that are concerning to you Small, frequent meals. Brice diet. Remain well hydrated. Nausea medication as needed. Over the counter pain medication as needed Follow up with your primary care doctor Patient Language: [place] Islander Prescriptions: New metoclopramide HCl 5 mg tablet 5 mg PO Q6H PRN (Reason: nausea and vomiting) Qty: 14 0RF No Action ondansetron HCl [Zofran] 4 mg tablet 4 mg PO Q6H PRN (Reason: nausea and vomiting) Qty: 10 0RF dicyclomine 20 mg tablet 20 mg PO QID Qty: 20 0RF dicyclomine 20 mg tablet 20 mg PO TID PRN (Reason: Abdominal Discomfort) Qty: 10 0RF ondansetron 4 mg tablet,disintegrating 4 mg PO Q8H PRN (Reason: nausea and vomiting) Qty: 12 0RF ondansetron 4 mg tablet,disintegrating 4 mg PO Q8H PRN (Reason: nausea and vomiting) Qty: 20 0RF benzonatate 200 mg capsule 200 mg PO TID PRN (Reason: cough) Qty: 21 0RF metoclopramide HCl 5 mg tablet 5 mg PO Q6H PRN (Reason: nausea and vomiting) Qty: 10 0RF dicyclomine 20 mg tablet 20 mg PO TID PRN (Reason: Abdominal Discomfort) Qty: 15 0RF cyclobenzaprine 10 mg tablet 10 mg PO TID PRN (Reason: muscle spasm) Qty: 21 0RF ibuprofen 800 mg tablet 800 mg PO TID PRN (Reason: pain) Qty: 30 0RF metoclopramide HCl [Reglan] 10 mg tablet 10 mg PO Q6H PRN (Reason: nausea and vomiting) Qty: 10 0RF diclofenac potassium 50 mg tablet 50 mg PO TID PRN (Reason: pain) Qty: 30 0RF ondansetron 4 mg tablet,disintegrating 4 mg PO Q8H PRN (Reason: nausea and vomiting) Qty: 15 0RF prednisone 20 mg tablet 40 mg PO DAILY 5 Days Qty: 10 0RF ondansetron 4 mg tablet,disintegrating 4 mg PO Q8H PRN (Reason: nausea and vomiting) Qty: 10 0RF benzonatate 200 mg capsule 200 mg PO TID PRN (Reason: cough) Qty: 21 0RF Follow-up/Referrals: Satnam,DAVID Epps [Primary Care Provider] -
[2024-07-02 20:03] LABS: Alanine Aminotransferase 29 U/L (6-35); Albumin Level 4.4 g/dL (3.5-5.1); Alkaline Phosphatase 74 U/L (38-126); Anion Gap 9 mmol/L (4-12); Aspartate Amino Transferase 21 U/L (14-36); Bilirubin,Total 0.5 mg/dL (0.2-1.3); Blood Urea Nitrogen 12 mg/dL (7-17); Calcium 9.4 mg/dL (8.4-10.2); Carbon Dioxide 24 mmol/L (22-30); Chloride 104 mmol/L (98-107); Estimated CRCL calculation 64 ml/min; Estimated Glomerular Filt Rate > 60; Glucose 102 mg/dL (65-110); Lipase 76 U/L (23-300); Potassium 3.8 mmol/L (3.4-5.0); Sodium 137 mmol/L (137-145)
--- OUTSIDE RECORDS SUMMARY | 2024-07-02 20:07 | XMS_ITS | Encounter Summary ---
Author Organization [facility] Address [address] [place] [id number] Care Team Providers Care Radiographic Technologist Name Role Phone Supriya Hay Primary Care Provider [phone] Encounter Details Date Type Department Care Team (Late st Contact Info) Description 03/24/[address] [facility] [place] [address] Dylan Naidu, DO Social History Tobacco Use [...] COVID-19? No / Unsure 02/24/2021 1:47 PM NURSING PROFESSOR documented as of this encounter Plan of Treatment Not on file documented as of this encounter Results * (ABNORMAL) CORONAVIRUS (COVID 19) (03/31/2021 11:07 AM NURSING PROFESSOR) SPEC DESCRIPTION NASAL 03/31/19 11:07 AM NURSING PROFESSOR [facility] CORONAVIRUS SARS COV 2 PCR (RESP) POSITIVE(A A) NEGATIVE 03/31/2021 11:37 PM NURSING PROFESSOR [facility] Comment: THE SARS-CoV-2 TEST HAS BEEN AUTHORIZED BY THE FDA UNDER AN EUA FOR USE BY AUTHORIZED LABORATORIES. PERFORMED BY NUCLEIC ACID AMPLIFICATION PCR FIRST TEST NO 03/31/2021 11:07 AM [facility] EMPLOYED IN HEALTHCARE NO 03/31/2021 11:07 AM NURSING PROFESSOR [facility] SYMPTOMATIC DEFINED BY CDC UNKNOWN 03/31/2021 11:07 AM NURSING PROFESSOR [facility] HOSPITALIZATION STATUS NO 03/31/2021 11:07 AM NURSING PROFESSOR [facility] PATIENT IN ICU NO 03/31/2021 11:07 AM [facility] RESIDENT OF [facility] CARE NO 03/31/2021 11:07 AM NURSING PROFESSOR [facility] UNKNOWN 03/31/2021 11:07 AM [facility] NASAL STRUCTURE / Unknown 03/31/2021 11:07 AM NURSING PROFESSOR Dylan Naidu DO MICROBIOLOGY - GENERAL ORDERABL ES Final Result [facility] [address] [place] [address], [place] [phone] [facility] [address] [place] [address], [place] [phone] documented in this encounter Visit Diagnoses Diagnosis Chronic constipation- Primary Unspecified constipation documented in this encounter Additional Health Concerns Infection Onset Date Last Indicated Resolved Time COVID-19 Rule Out 03/31/2021 03/31/2021 03/31/2021 11:37 PM NURSING PROFESSOR COVID-19 Confirmed 03/31/2021 03/31/2021 12:34 AM NURSING PROFESSOR documented as of this encounter Care Teams Radiographic Technologist Relationship Specialty Start Date End Date Supriya Hay PA [address] [place] [address] PCP - General PHYSICIAN EDGE BURNISHER 02/25/21 documented as of this encounter
--- OUTSIDE RECORDS SUMMARY | 2024-07-02 20:07 | XMS_ITS | Clinical Summary ---
Author Organization [facility] Address [facility] [place] [address] Care Team Providers Care Director Of Religious Activities Name Role Phone Supriya Hay Primary Care Provider [phone] Allergies Active Allergy Reactions Criticality Noted Date [...] this topic Insurance [employer] Care Teams Director Of Religious Activities Relationship Specialty Start Date End Date Supriya Hay PA [address] [place] [address] PCP - General PHYSICIAN CASTING TESTER 02/25/21
--- OUTSIDE RECORDS SUMMARY | 2024-07-02 20:07 | XMS_ITS | Encounter Summary ---
Author Organization [facility] Address [facility] [place] [address] Care Team Providers Care Logistics Specialist Name Role Phone Elana Weathers MD Primary Care Provider [phone] Supriya Hay Primary Care Provider [phone] Encounter Details Date Type Department Care Team (Late st Contact Info) Description 01/29/[address] [facility] [place] [address] Dylan Naidu, DO Social History Tobacco Use [...] Rule Out 02/25/2021 02/25/2021 02/25/2021 11:[address] COVID-19 Rule Out 03/31/2021 03/31/2021 03/31/2021 11:[address]IVER COVID-19 Confirmed 03/31/2021 03/31/2021 12:[address]IVER documented as of this encounter Care Teams Logistics Specialist Relationship Specialty Start Date End Date Elana Weathers MD [address] [place] [address] PCP - General FAMILY PRACTICE 11/12/20 02/24/21 Supriya Hay PA [address] [place] [address] PCP - General PHYSICIAN PUBLIC SPEAKER 02/25/21 documented as of this encounter
--- OUTSIDE RECORDS SUMMARY | 2024-07-02 20:07 | XMS_ITS | Encounter Summary ---
Author Organization [facility] Address [facility] [place] [address] Care Team Providers Care Director Medicaid Name Role Phone Elana Weathers MD Primary Care Provider [phone] Supriya Hay Primary Care Provider [phone] Encounter Details Date Type Department Care Team (Late st Contact Info) Description 11/11/2020 Prep for Procedure [facility] [place] [address] Dylan Naidu, DO Social History Tobacco Use [...] Rule Out 02/25/2021 02/25/2021 02/25/2021 11:29 AM APPLICATIONS PROCESSOR COVID-19 Rule Out 03/31/2021 03/31/2021 03/31/2021 11:37 PM APPLICATIONS PROCESSOR COVID-19 Confirmed 03/31/2021 03/31/2021 12:34 AM APPLICATIONS PROCESSOR documented as of this encounter Care Teams Director Medicaid Relationship Specialty Start Date End Date Elana Weathers MD [address] [place] [address] PCP - General FAMILY PRACTICE 11/12/20 02/24/21 Supriya Hay PA [address] [place] [address] PCP - General PHYSICIAN TOWERMAN 02/25/21 documented as of this encounter
[2024-07-02 20:39] LABS: Pregnancy On Board Control Positive; Urine Pregnancy Test Negative
[2024-07-02 20:42] LABS: Troponin I < 0.012 ng/mL (0.000-0.034)
[2024-07-02 20:59] LABS: Add Urine Microscopic? YES; Appearance Urine Turbid (Clear); Bacteria Urine 2+ /hpf; Bilirubin Urine Negative (Negative); Blood Urine Negative (Negative); Color Urine Yellow (Yellow); Glucose Urine UA Negative (Negative); Ketones Urine Trace mg/dL (Negative); Leukocyte Esterase Ur Negative LEU/UL (Negative); Nitrate Urine Negative (Negative); Non Pathogenic Casts 0-2; Protein Urine Negative (Negative); RBC Urine 21-50 /hpf (0-2); Specific Grav Ur 1.025 (1.001-1.035); Squamous Epithelial Cell Urine Occasional /hpf (Few); Uric Acid Crystals Urine Present /hpf; WBC Urine 0-5 /hpf (0-3); pH Urine 5.5 (5.0-9.0)
[2024-07-02 21:01] LABS: BEDSIDEPREGUCG Negative (Negative)
[2024-07-02] MEDS: FAMOTIDINE 20 MG/2 ML VIAL IV PUSH (21:15)
[2024-07-02] MEDS: SODIUM CHLORIDE 0.9% IV 50 ML 999 ML (21:15)
[2024-07-02] MEDS: METOCLOPRAMIDE HCL INJ 10 MG/2 ML VIAL IV PUSH (21:15)
[2024-07-02] MEDS: SODIUM CHLORIDE 0.9% IV 1,000 ML 999 ML IV CONT (21:17)
[2024-07-03 00:27] VITALS: BP 123/80; PULSE 70; RESP 14; O2SAT 100
== END 2024-07-03 01:45 | disposition home or self-care (01) ==
PROVIDERS: Emergency Provider Physician Assistant; PCP Physician Assistant
DX: R10.9 Unspecified abdominal pain (principal); M25.562 Pain in left knee; Z90.49 Acquired absence of other specified parts of digestive tract
CPT/HCPCS: 36415; 73562; 74177; 80053; 81001; 81025; 83690; 84484; 85025; 93005; 96361; 96374; 96375; 99284; J2765; J7030; Q9967

== ENCOUNTER 2024-07-12 14:41 | Outpatient (CLI) | payer OTHER, SELFPAY ==
[2024-07-12 15:31] LABS: Basophils Percent Auto 0.4 % (0.2-1.2); Eosinophils Absolute Auto 0.1 K/mm3 (0-0.3); Eosinophils Percent Auto 1.5 % (0-4.4); Hematocrit 38.3 % (37.0-47.0); Hemoglobin 12.9 g/dL (12.0-15.0); Immature Granulocyte Absolute 0.01 K/mm3 (0.00-0.031); Immature Granulocyte Percent A 0.1 % (0-0.5); Lymphocytes Absolute Auto 2.05 K/mm3 (0.9-3.2); Lymphocytes Percent Auto 28.3 % (18.3-44.2); Mean Corpuscular HGB Conc 33.7 g/dl (32-36); Mean Corpuscular Hemoglobin 29.7 pg (26-34); Mean Platelet Volume 11.3 fl (7.4-10.4); Monocytes Absolute Auto 0.4 K/mm3 (0.1-0.6); Monocytes Percent Auto 5.2 % (2.6-8.5); Neutrophils Absolute Auto 4.7 K/mm3 (1.3-6.7); Neutrophils Percent Auto 64.5 % (45.5-73.1); Platelet Count Result 296 k/mm3 (150-375); Red Blood Count 4.35 M/mm3 (4.2-5.4); Red Cell Distribution Width 13.9 % (11.5-14.5); White Blood Count 7.2 K/mm3 (4.5-10.0)
[2024-07-12 16:47] LABS: Alanine Aminotransferase 23 U/L (6-35); Albumin Level 4.3 g/dL (3.5-5.1); Alkaline Phosphatase 71 U/L (38-126); Anion Gap 10 mmol/L (4-12); Aspartate Amino Transferase 22 U/L (14-36); Bilirubin,Total 0.3 mg/dL (0.2-1.3); Blood Urea Nitrogen 11 mg/dL (7-17); Carbon Dioxide 27 mmol/L (22-30); Chloride 102 mmol/L (98-107); Estimated Glomerular Filt Rate > 60; Glucose 78 mg/dL (65-110); Potassium 3.7 mmol/L (3.4-5.0); Sodium 139 mmol/L (137-145)
--- OUTSIDE RECORDS SUMMARY | 2024-07-12 16:51 | XMS_ITS | Encounter Summary ---
Author Organization [facility] Address [address] [place] [address] Phone Care Team Providers Care Reduction Plant Supervisor Name Role Phone Supriya Hay Primary Care Provider [phone] Helio Carrera MD Unavailable Encounter Details Date Type Department Care Team (Late st Contact Info) Description 07/12/2024 Telephone [facility] Otolaryngology 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 Gender Identity Female 11/16/2022 3:54 PM CDT Sexual Orientation Straight 11/16/2022 3: 54 PM CDT documented as of this encounter Miscellaneous Notes * Telephone Encounter - Vandana Lamb - 07/12/2024 3:08 PM CDT Pt called and scheduled her appt documented in this encounter Plan of Treatment Not on file documented as of this encounter Visit Diagnoses Not on filedocumented in this encounter Care Teams Reduction Plant Supervisor Relationship Specialty Start Date End Date Supriya Hay PA [address] [place] [address] PCP - General Internal Medicine 02/21/20 Helio Carrera MD [address] [place] [address] Referring Physician Obstetrics and Gynecology 09/03/21 documented as of this encounter
--- OUTSIDE RECORDS SUMMARY | 2024-07-12 16:51 | XMS_ITS | Clinical Summary ---
Author Organization [facility] Office Center Address [address] [place] [address] Care Team Providers Care 3D Designer Name Role Phone Supriya Hay Primary Care Provider +1- [phone] Helio Carrera MD Unavailable Allergies Active Allergy [...] pain 30 tablet 04/14/19 25 Active ondansetron (ZOFRAN) 8 mg tabletIndications: Nausea and vomiting, unspecified vomiting type Take 1 tablet (8 mg total) by mouth every 8 (eight) hours as needed for nausea or vomiting 20 tablet 07/13/19 25 Active ondansetron ODT (ZOFRAN-ODT) 4 mg disintegrating tablet Take 1 tablet (4 mg total) by mouth every 8 (eight) hours as needed for nausea or vomiting 20 tablet 1 05/07/19 25 025 Discontinued ondansetron ODT (ZOFRAN-ODT) 4 mg disintegrating tablet DISSOLVE 1 TABLET(4 MG) ON THE TONGUE EVERY 8 HOURS NEEDED FOR NAUSEA OR VOMITING 20 tablet 1 06/28/19 25 025 Discontinued Active Problems Problem Noted Date Diagnosed Date Morbid obesity 05/15/2024 Left upper quadrant abdominal pain 04/23/2024 Assessment & Plan (04/23/2024 8:00 PM TOOL CRIB SUPERVISOR): Patient continues to have left mid axillary line just above and below the diaphragm. Suspect this is still pain from coughing. Will send out Robitussin with codeine and ibuprofen to use as needed. If symptoms persist may need additional imaging. Subacute cough 04/23/2024 Assessment & Plan (04/23/2024 8:00 PM TOOL CRIB SUPERVISOR): Patient continues to have left mid axillary line just above and below the diaphragm. Suspect this is still pain from coughing. Will send out Robitussin with codeine and ibuprofen to use as needed. If symptoms persist may need additional imaging. Nausea 04/23/2024 Assessment & Plan (04/23/2024 8:02 PM TOOL CRIB SUPERVISOR): Persistent nausea. She has been responding to [...] 12/19/2023 Assessment & Plan (04/23/2024 8:00 PM TOOL CRIB SUPERVISOR): Persistent soreness of the tongue. Will make a referral to an additional ENT since was unable to connect with the previous 1. Assessment & Plan (04/17/2024 12:28 AM TOOL CRIB SUPERVISOR): Persistent soreness of the tongue without good [...] share as well as heart strings in [place] for support. Discussed medications including risks benefits [...] 01/24/2023 Assessment & Plan (04/17/2024 12:26 AM TOOL CRIB SUPERVISOR): Recent RSV positive. Has had a persistent cough. Completed prednisone 40 mg x 5 days. She has had Tessalon Perles but has not seen a significant improvement. Will send out Symbicort to see if this helps with the breathing. Continue to monitor closely Assessment & Plan (01/24/2023 9:58 PM TOOL CRIB SUPERVISOR): Start antibiotic, antihistamine (Claritin OR Zyrtec), Mucinex 12hour and Steroid nasal spray (Flonase). Push fluids. Rest. Supportive care. If sxs worsen or don\'t improve, pt is to followup in the office. Patient struggles with yeast infections when she is on an antibiotic so will send out a Diflucan. Obesity (BMI 30.0-34.9) 01/13/2023 Assessment & Plan (04/14/2024 11:12 AM TOOL CRIB SUPERVISOR): Discussed the patient's BMI. The BMI is above average. BMI management plan is completed. BMI Follow-up includes: nutrition counseling, exercise counseling and education provided. Assessment & Plan (04/05/2024 4:09 PM TOOL CRIB SUPERVISOR): Discussed the patient's BMI. The BMI is [...] 01/13/2023 Assessment & Plan (04/14/2024 11:12 AM TOOL CRIB SUPERVISOR): Discussed the patient's BMI. The BMI is above average. BMI management plan is completed. BMI Follow-up includes: nutrition counseling, exercise counseling and education provided. Assessment & Plan (04/05/2024 4:09 PM TOOL CRIB SUPERVISOR): Discussed the patient's BMI. The BMI is [...] She has had a negative DVT at [facility]. She has absolutely no swelling [...] scheduled. Assessment & Plan (02/14/2022 3:12 PM TOOL CRIB SUPERVISOR): Workup is negative. Suspect benign lesion by [...] Radiology. Will follow-up pending these results. Prefers [facility] Chronic pain of left knee 06/04/2020 Left leg pain 05/24/2020 Assessment & Plan (05/24/2020 8:28 PM TOOL CRIB SUPERVISOR): Persistent pain after a fall about 3 [...] needed. Assessment & Plan (01/24/2023 9:57 PM TOOL CRIB SUPERVISOR): Encouraged patient to follow low fat/low chol diet like the Mediterranean diet. Increase good fats in the diet. Increase exercise. Monitor labs as needed. Assessment & Plan (05/24/2020 8:30 PM TOOL CRIB SUPERVISOR): Encouraged patient to follow fat/low chol diet like the Mediterranean diet. Increase good fats in the diet. Increase exercise. Monitor labs as needed. If not enough change with diet/exercise will need to start statin due to LDL. Migraine without aura and wi thout status migrainosus, not intractable 03/01/2020 Assessment & Plan (05/24/2020 8:29 PM TOOL CRIB SUPERVISOR): Continue with the Maxalt. Continue to monitor as was difficult to see pattern with this fall as it is negatively affecting her sleep patterns. Mobic may help is tension component Assessment & Plan (03/01/2020 10:07 PM TOOL CRIB SUPERVISOR): Discussed possible triggers. Start Maxalt prn. Get regular rest/exercise. Check labs. Bring diary to next visit with VALDEZ. Chronic midline low back pain without sciatica 1 05/02/2019 Assessment & Plan (03/01/2020 10:15 PM TOOL CRIB SUPERVISOR): Encouraged exercise, stretching, walking and weight loss. [...] provided. Assessment & Plan (05/23/2020 2:13 PM TOOL CRIB SUPERVISOR): Obesity is unchanged. Discussed the patient's BMI. [...] provided. Assessment & Plan (05/23/2020 2:13 PM TOOL CRIB SUPERVISOR): Obesity is unchanged. Discussed the patient's BMI. The BMI is above average. BMI management plan is completed. BMI Follow-up includes: nutrition counseling, exercise counseling and education provided. Diabetes mellitus screening 03/01/2020 10/05/2023 Assessment & Plan (01/24/2023 9:57 PM TOOL CRIB SUPERVISOR): Check labs Assessment & Plan (03/01/2020 10:06 PM TOOL CRIB SUPERVISOR): Check labs Lipid screening 03/01/2020 10/05/2023 Assessment & Plan (01/24/2023 9:57 PM TOOL CRIB SUPERVISOR): Check labs Assessment & Plan (03/01/2020 10:06 PM TOOL CRIB SUPERVISOR): Check labs Other fatigue 03/01/2020 10/05/2023 Assessment & Plan (01/24/2023 9:57 PM TOOL CRIB SUPERVISOR): Probably multifactorial. Check labs and followup to re-evaluate Assessment & Plan (03/01/2020 10:07 PM TOOL CRIB SUPERVISOR): Probably multifactorial. Check labs and followup to re-evaluate Annual physical exam 03/01/2020 021 Assessment & Plan (03/01/2020 10:06 PM TOOL CRIB SUPERVISOR): Encouraged healthy lifestyle, good nutrition and exercise. Encouraged Calcium and Vitamin D and weight bearing exercise for bone health. Reviewed immunizations Reviewed age appropirate screenings. BMI 31.0-31.9,adult 02/28/2020 05/24/19 21 Assessment & Plan (02/28/2020 2:24 PM TOOL CRIB SUPERVISOR): Obesity is unchanged. Discussed the patient's BMI. The BMI is above average. BMI management plan is completed. BMI Follow-up includes: nutrition counseling, exercise counseling and education provided. Obesity (BMI 30-39.9) 02/28/20202020 Assessment & Plan (03/01/2020 10:06 PM TOOL CRIB SUPERVISOR): Obesity is unchanged. Discussed the patient's BMI. The BMI is above average. BMI management plan is completed. BMI Follow-up includes: nutrition counseling, exercise counseling and education provided Need for immunization against influenza 02/28/2020 12/03/2021 Assessment & Plan (03/01/2020 10:06 PM TOOL CRIB SUPERVISOR): Encouraged vaccine. Reviewed risks/ benefits. Patient refuses and accepts risks. Encounters Date Type Department Care Team Description 07/12/2024 Telephone [facility] Otolaryngology [address] [place] [address] Piedad Montez MS 07/12/2024 Orders Only [place] [address] [facility] [address] [place] [address] Supriya Hay PA Nausea and vomiting, unspecified vomiting type (Primary Dx); Abdominal pain; Prediabetes 07/12/[address] [place] [address] Supriya Hay PA 07/12/2024 Orders Only [address] [place] [address] Supriya Hay PA Soreness of tongue (Primary Dx) 07/07/[address] [place] [address] Supriya Hay PA 07/03/[address] [place] [address] Supriya Hay PA 05/22/2024 Results Follow-Up [facility] [address] [place] [address] Percy Hutchinson MD 05/15/2024 3:52 PM TOOL CRIB SUPERVISOR - 05/15/2024 11:59 PM TOOL CRIB SUPERVISOR Hospital Encounter [facility] [address] [place] [address] 3rd [place] [address] Intramural leiomyoma of uterus; Abnormal uterine bleeding; Dysmenorrhea Discharge Disposition: Discharge to home or self care 05/15/2024 2:30 PM TOOL CRIB SUPERVISOR Office Visit [facility] Obstetrics and Gynecology [address] [place] [address] 13th [place] [address] Percy Hutchinson MD Intramural leiomyoma of uterus (Primary Dx); Abnormal uterine bleeding; Dysmenorrhea; Morbid obesity (HCC) 05/15/2024 12:45 PM TOOL CRIB SUPERVISOR - 05/15/2024 11:59 PM TOOL CRIB SUPERVISOR Hospital Encounter [facility] - Ultrasound [address], 7th Floor, [address] [place] [address] Abnormal uterine bleeding Discharge Disposition: Discharge to home or self care 05/12/2024 Telephone [facility] Obstetrics and Gynecology [address] [facility] 7th Floor [address] [place] [address] Norma Blevins, PEPITO Follow-up 04/28/2024 Telephone [facility] Maternal- Medicine [address] [facility] 7th Floor [address] [place] [address] Luciana Fuller, [facility] Ultrasound 04/18/[address] [place] [address] Supriya Hay PA Medical Question/Miscellane ous 04/17/2024 Orders Only [facility] Obstetrics and Gynecology [address] [facility] 7th Floor [address] [place] [address] Percy Hutchinson MD Abnormal uterine bleeding (Primary Dx) 04/14/2024 10:30 AM TOOL CRIB SUPERVISOR Office Visit [facility] Medicine [address] [place] [address] Supriya Hay PA Subacute cough (Primary Dx); Left upper quadrant abdominal pain; Nausea; Soreness of tongue; Obesity (BMI 30.0-34.9); BMI 33.0-33.9,adult 04/14/2024 Telephone [facility] [address] [place] [address] Supriya Hay PA Medical Question/Miscellane ous from Last 3 Months Immunizations Immunization Administration [...] PM CDT Legal Sex Female 12:02 AM TOOL CRIB SUPERVISOR Gender Identity Female 11/16/2022 3:54 PM [...] Comments Blood Pressure 123/71 05/15/2024 2:17 PM TOOL CRIB SUPERVISOR Pulse 79 05/15/2024 2:17 PM TOOL CRIB SUPERVISOR Temperature 36.9 C (98.4 F) 05/15/2024 2:17 PM TOOL CRIB SUPERVISOR Respiratory Rate 20 12/10/2022 2:27 PM CDT Oxygen Saturation 98% 05/15/2024 2:17 PM TOOL CRIB SUPERVISOR Inhaled Oxygen Concentration - - Weight 81.9 kg (180 lb 8 oz) 05/15/2024 2:17 PM TOOL CRIB SUPERVISOR Height 157.5 cm (5' 2.01 ) 05/15/2024 2:17 PM CS T Body Mass Index 33.01 05/15/2024 2:17 PM TOOL CRIB SUPERVISOR Plan of Treatment Health Maintenance Due Date [...] Comments SURGICAL PATHOLOGY Routine 05/15/2024 3:52 PM TOOL CRIB SUPERVISOR Intramural leiomyoma of uterus Abnormal uterine bleeding Dysmenorrhea US PELVIS COMPLETE Schedule Routine, Read Routine (OP Routine) 05/15/2024 12:56 PM TOOL CRIB SUPERVISOR Abnormal uterine bleeding SCREENING MAMMOGRAM BILATERAL W SREE Schedule Routine, Read Routine (OP Routine) 06/01/2023 2:45 PM CDT Screening mammogram, encounter for from Last 3 Months or Most Recently Relevant to Health Maintenance Results * Surgical pathology (05/15/2024 3:52 PM TOOL CRIB SUPERVISOR) Tissue specimen (specimen) (Endometrial biopsy) 05/15/2024 3:52 PM TOOL CRIB SUPERVISOR 05/15/2024 6:50 PM TOOL CRIB SUPERVISOR Narrative PATHOLOGY [facility] - 05/17/2024 1:17 PM TOOL CRIB SUPERVISOR EPIC results best viewed via link to PDF [facility] Imani [facility] [place] [address] Note to Patients: This report may contain [...] Gender: F : 1980 (Age: 43) Address: [address] [place], [place] [address] Hospital #: [id number] Taken:05/15/2024 Received:05/15/2024 Reported: 05/17/2024 Patient Type: [facility] Service: UNKNOWN Location: Physician(s): Percy Hutchinson [...] Surgical Pathology and Flow Cytometry Departments at [facility] as part of an ongoing senior quality technician program and in compliance with federally mandated [...] Surgical Pathology and Flow Cytometry Departments of [facility]. It has not been cleared or approved by the U. S. Food and Drug Administration. IMAGES AND SCANNED DOCUMENTS, IF INCLUDED, ONLY VIEWABLE IN PDF VERSION OF REPORT us Percy Hutchinson MD LAB PATHOLOGY ORDERABLES F inal Result PATHOLOGY [facility] 3rd Floor [place], [place] [phone] * US Pelvis Complete (05/15/2024 12:56 PM TOOL CRIB SUPERVISOR) Cul de Sac No free fluid visualized [facility] Endometrial Thickness 3.6 mm&millim eters VIEWPOINT Anatomical Region Laterality Modality Pelvis N/A Ultrasound 05/15/2024 12:5 8 PM TOOL CRIB SUPERVISOR Impressions 05/15/2024 4:00 PM TOOL CRIB SUPERVISOR The uterus is anteverted and normal in [...] Most Recently Relevant to Health Maintenance Insurance [facility] Advance Directives For more information, please contact: [phone] * Full Code (Latest Code Status on File) Date Activated Date Inactivated Comments 12/23/2021 8:04 AM 12/23/2021 4:20 PM Care Teams 3D Designer Relationship Specialty Start Date End Date Supriya Hay PA [address] [facility] [address] [place] [address] PCP - General Internal Medicine 02/21/20 Helio Carrera MD [address] [facility] [address] [place] [address] Referring Physician Obstetrics and Gynecology 09/03/21
--- OUTSIDE RECORDS SUMMARY | 2024-07-12 16:51 | XMS_ITS | Encounter Summary ---
Author Organization [facility] Healthcare Address [address] [place] [address] Care Team Providers Care Electrician Refinery Name Role Phone Supriya Hay Primary Care Provider +1- [phone] Helio Carrera MD Unavailable +1- [phone] Encounter Details Date Type Department Care Team (Late st Contact Info) Description 07/12/2024 Telephone [facility] Family Medicine [address] [facility] [address] [place] [address] Supriya Hay PA [address] [place] [address] Social History Tobacco Use Types [...] PM CDT Legal Sex Female 12:02 AM EMERGENCY SPECIALIST Gender Identity Female 11/16/2022 3:54 PM CDT Sexual Orientation Straight 11/16/2022 3: 54 PM CDT documented as of this encounter Ordered Prescriptions Prescription Sig Dispense Quantity Refills Last Filled Start Date End Date ondansetron (ZOFRAN) 8 mg tabletIndications: Nausea and vomiting, unspecified vomiting type Take 1 tablet (8 mg total) by mouth every 8 (eight) hours as needed for nausea or vomiting 20 tablet 07/12/2024 documented in this encounter Miscellaneous Notes * Telephone Encounter - Cait Pino LPN - 07/12/2024 1:36 PM CDT Sent per PCP documented in this encounter Plan of Treatment Not on file documented as of this encounter Visit Diagnoses Diagnosis Nausea- Primary Nausea alone Nausea and vomiting, unspecified vomiting type documented in this encounter Discontinued Medications Medication Sig Discontinue Reason Start Date End Da te ondansetron ODT (ZOFRAN-ODT) 4 mg disintegrating tablet DISSOLVE 1 TABLET(4 MG) ON THE TONGUE EVERY 8 HOURS NEEDED FOR NAUSEA OR VOMITING 06/27/2024 07/12/2024 documented as of this encounter Care Teams Electrician Refinery Relationship Specialty Start Date End Date Supriya Hay PA [address] [place] [address] PCP - General Internal Medicine 02/21/20 Helio Carrera MD [phone] Referring Physician Obstetrics and Gynecology 09/03/21 documented as of this encounter
--- OUTSIDE RECORDS SUMMARY | 2024-07-12 16:51 | XMS_ITS | Encounter Summary ---
Author Organization [facility] Healthcare Address [address] [place] [address] Care Team Providers Care Chain Maker Loom Control Name Role Phone Supriya Hay Primary Care Provider +1- [phone] Helio Carrera MD Unavailable +1 [phone] Encounter Details Date Type Department Care Team (Late st Contact Info) Description 07/07/[address] [facility] Medical Group Family Medicine [address] [facility] [address] [place] [address] Supriya Hay PA [address] [facility] [place] [address] Social History Tobacco Use Types [...] PM CDT Legal Sex Female 12:02 AM METHODS EXAMINER Gender Identity Female 11/16/2022 3:54 PM CDT Sexual Orientation Straight 11/16/2022 3: 54 PM CDT documented as of this encounter Miscellaneous Notes * Telephone Encounter - Cait Pino LPN - 07/12/2024 2:17 PM CDT Spoke with provider and received verbal orders to place labs for CMP, CBC, A1C, and HCG blood. Pt also needs to schedule an office appt. Will send out the Zofran 8mg to the pharmacy. Pt scheduled forfirst available that works for her schedule. Zofran sent per PCP * Telephone Encounter - Cait Pino LPN - 07/12/2024 11:21 AM CDT Patient returned call. She is doing better with Zofran and is only vomiting maybe once a day but she said that she has had to double up because the 4mg was not doing it but two of them work well. Pt would like to know if she can have a new RX sent out for Zofran 8mg as she is almost out of the 4mg. * Telephone Encounter - Cait Pino LPN - 07/12/2024 8:48 AM CDT Called and LVM X 3. Closing this note as pt is not answering or returning call. * Telephone Encounter - Cait Pino LPN - 07/11/2024 10:34 AM CDT Called and LVM to check on pt x 2 * Telephone Encounter - Cait Pino LPN - 07/10/2024 10:27 AM CDT Called and LVM to check on patient. * Telephone Encounter - Supriya Hay PA - 07/08/2024 4:01 PM CDT Noted. Please check on her when back in the office. * Telephone Encounter - Lena Freitas MA - 07/07/2024 4:33 PM CDT Aziza called back still having problems keeping anything down will try zofran for a awhile longerif no relief will go back to Emergency room. documented in this encounter Plan of Treatment Not on file documented as of this encounter Visit Diagnoses Not on filedocumented in this encounter Care Teams Chain Maker Loom Control Relationship Specialty Start Date End Date Supriya Hay PA [address] [facility] [place] [address] PCP - General Internal Medicine 02/21/20 Helio Carrera MD [address] [place] [address] Referring Physician Obstetrics and Gynecology 09/03/21 documented as of this encounter
--- OUTSIDE RECORDS SUMMARY | 2024-07-12 16:51 | XMS_ITS | Encounter Summary ---
Author Organization [facility] Address [address] [place] [address] Phone Care Team Providers Care Deputy Chief Counsel Name Role Phone Supriya Hay Primary Care Provider +1- [phone] Helio Carrera MD Unavailable Reason for Referral * Diagnostic Imaging (Routine) - Closed Specialty Diagnoses / Procedures Referred By Melissa swanson Referred To Contact Diagnoses Abnormal uterine bleeding Procedures US Pelvis Complete Percy Hutchinson MD [address] [facility] [phone] [place] [address] Phone: tel: fax: [facility] (All Locations) Referral ID Status Reason Start Date Expiration Date Visits Re quested Visits Authorized [id number] Closed 04/17/2024 05/17/2025 1 1 ITURE TECHNICIAN Encounter Details Date Type Department Care Team (Late st Contact Info) Description 04/17/2024 Orders Only [facility] Obstetrics and Gynecology [address] [place] [address] Outpatient Health 7th Floor [address] [place] [address] Percy Hutchinson MD [address] [phone] [place] [address] Abnormal uterine bleeding (Primary Dx) Social History Tobacco Use Types [...] PM CDT Legal Sex Female 12:02 AM FURNITURE TECHNICIAN Gender Identity Female 11/16/2022 3:54 PM CDT Sexual Orientation Straight 11/16/2022 3: 54 PM CDT documented as of this encounter Progress Notes * Norma Medina RN - 04/17/2024 4:31 PM CST Per provider, order placed. ITURE TECHNICIAN documented in this encounter Miscellaneous Notes * Addendum Note - Norma Medina RN - 04/17/2024 4:31 PM FURNITURE TECHNICIAN Addended by: NORMA MEDINA on: 04/17/2024 04:40 PM Modules accepted: Orders ITURE TECHNICIAN * Addendum Note - Gloria Pino LPN - 04/17/2024 4:31 PM CSTAddended by: GLORIA PINO on: 07/12/2024 02:20 PM Modules accepted: Orders documented in this encounter Plan of Treatment Scheduled Orders Name Type Priority Associated Diagnoses Orde r Schedule CBC without differential Lab Routine Abnormal uterine bleeding Expected: 04/17/2024, Expires: 04/17/2025 documented as of this encounter Results * US Pelvis Complete (05/15/2024 12:56 PM FURNITURE TECHNICIAN) Cul de Sac No free fluid visualized [facility] Endometrial Thickness 3.6 mm&millim eters VIEWPOINT Anatomical Region Laterality Modality Pelvis N/A Ultrasound 05/15/2024 12:5 8 PM FURNITURE TECHNICIAN Impressions 05/15/2024 4:00 PM FURNITURE TECHNICIAN The uterus is anteverted and normal [...] in this encounter Visit Diagnoses Diagnosis Abnormal uterine bleeding- Primary Unspecified disorder of menstruation and other abnormal bleeding from female genital tract Abnormal uterine bleeding Unspecified disorder of menstruation and other abnormal bleeding from female genital tract documented in this encounter Care Teams Deputy Chief Counsel Relationship Specialty Start Date End Date Supriya Hay PA [address] [place] [address] PCP - General Internal Medicine 02/21/20 Helio Carrera MD [address] [place] [address] Referring Physician Obstetrics and Gynecology 09/03/21 documented as of this encounter
--- OUTSIDE RECORDS SUMMARY | 2024-07-12 16:51 | XMS_ITS | Encounter Summary ---
Author Organization [facility] Address [address] [place] [address] Care Team Providers Care Router Operator Name Role Phone Supriya Hay Primary Care Provider [phone] Encounter Details Date Type Department Care Team (Late st Contact Info) Description 03/24/[address] [facility] [place] [address] Dylan Naidu, DO Social History Tobacco Use [...] COVID-19? No / Unsure 02/24/2021 1:47 PM PHYSICIAN ASST documented as of this encounter Plan of Treatment Not on file documented as of this encounter Results * (ABNORMAL) CORONAVIRUS (COVID 19) (03/31/2021 11:07 AM PHYSICIAN ASST) SPEC DESCRIPTION NASAL 03/31/19 11:07 AM PHYSICIAN ASST [facility] CORONAVIRUS SARS COV 2 PCR (RESP) POSITIVE(A A) NEGATIVE 03/31/2021 11:37 PM PHYSICIAN ASST [facility] Comment: THE SARS-CoV-2 TEST HAS BEEN AUTHORIZED BY THE FDA UNDER AN EUA FOR USE BY AUTHORIZED LABORATORIES. PERFORMED BY NUCLEIC ACID AMPLIFICATION PCR FIRST TEST NO 03/31/2021 11:07 AM [facility] EMPLOYED IN HEALTHCARE NO 03/31/2021 11:07 AM PHYSICIAN ASST [facility] SYMPTOMATIC DEFINED BY CDC UNKNOWN 03/31/2021 11:07 AM PHYSICIAN ASST [facility] HOSPITALIZATION STATUS NO 03/31/2021 11:07 AM PHYSICIAN ASST [facility] PATIENT IN ICU NO 03/31/2021 11:07 AM [facility] RESIDENT OF [facility] NO 03/31/2021 11:07 AM PHYSICIAN ASST [facility] UNKNOWN 03/31/2021 11:07 AM [facility] NASAL STRUCTURE / Unknown 03/31/2021 11:07 AM PHYSICIAN ASST Dylan Naidu DO MICROBIOLOGY - GENERAL ORDERABL ES Final Result [facility] [address] [place] [address], [place] [phone] [facility] [address] [place] [address], [place] [phone] documented in this encounter Visit Diagnoses Diagnosis Chronic constipation- Primary Unspecified constipation documented in this encounter Additional Health Concerns Infection Onset Date Last Indicated Resolved Time COVID-19 Rule Out 03/31/2021 03/31/2021 03/31/2021 11:37 PM PHYSICIAN ASST COVID-19 Confirmed 03/31/2021 03/31/2021 12:34 AM PHYSICIAN ASST documented as of this encounter Care Teams Router Operator Relationship Specialty Start Date End Date Supriya Hay PA [address] [place] [address] PCP - General PHYSICIAN FURNACE UNLOADER 02/25/21 documented as of this encounter
--- OUTSIDE RECORDS SUMMARY | 2024-07-12 16:51 | XMS_ITS | Encounter Summary ---
Author Organization [facility] Healthcare Address [address] [place] [address] Care Team Providers Care Lead Software Architect Name Role Phone Supriya Hay Primary Care Provider [phone] Helio Carrera MD Unavailable [phone] Encounter Details Date Type Department Care Team (Late st Contact Info) Description 07/12/2024 Orders Only [facility] Family Medicine [address] [place] [address] Supriya Hay PA [address] [place] [address] Nausea and vomiting, unspecified vomiting type (Primary Dx); Abdominal pain; Prediabetes Social History Tobacco Use Types Packs/Day Years [...] PM CDT Legal Sex Female 12:02 AM MANDOLIN 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 Gender Identity Female 11/16/2022 3:54 PM CDT Sexual Orientation Straight 11/16/2022 3: 54 PM CDT documented as of this encounter Progress Notes * Gloria Pino LPN - 07/12/2024 1:37 PM CDT Labs placed per PCP documented in this encounter Miscellaneous Notes * Addendum Note - Gloria Pino LPN - 07/12/2024 1:37 PM CDTAddended by: GLORIA PINO on: 07/12/2024 02:20 PM Modules accepted: Orders * Addendum Note - Gloria Pino LPN - 07/12/2024 1:37 PM CDTAddended by: GLORIA PINO on: 07/12/2024 02:20 PM Modules accepted: Orders * Addendum Note - Gloria Pino LPN - 07/12/2024 1:37 PM CDTAddended by: GLORIA PINO on: 07/12/2024 02:21 PM Modules accepted: Orders * Addendum Note - Gloria Pino LPN - 07/12/2024 1:37 PM CDTAddended by: GLORIA PINO on: 07/12/2024 02:21 PM Modules accepted: Orders documented in this encounter Plan of Treatment Scheduled Orders Name Type Priority Associated Diagnoses Orde r Schedule hCG, blood, quantitative Lab Routine Nausea and vomiting, unspecified vomiting type Abdominal pain Expected: 07/15/2024, Expires: 07/12/2025 Hemoglobin A1c Lab Routine Nausea and vomiting, unspecified vomiting type Abdominal pain Prediabetes Expected: 07/12/2024, Expires: 07/12/2025 CBC with auto differential Lab Routine Nausea and vomiting, unspecified vomiting type Abdominal pain Expected: 07/12/2024, Expires: 07/12/2025 Comprehensive metabolic panel Lab Routine Nausea and vomiting, unspecified vomiting type Abdominal pain Expected: 07/12/2024, Expires: 07/12/2025 documented as of this encounter Visit Diagnoses Diagnosis Nausea and vomiting, unspecified vomiting type- Primary Abdominal pain Abdominal pain, unspecified site Prediabetes Other abnormal glucose documented in this encounter Care Teams Lead Software Architect Relationship Specialty Start Date End Date Supriya Hay PA [address] [place] [address] PCP - General Internal Medicine 02/21/20 Helio Carrera MD [address] [place] [address] Referring Physician Obstetrics and Gynecology 09/03/21 documented as of this encounter
--- OUTSIDE RECORDS SUMMARY | 2024-07-12 16:51 | XMS_ITS | Encounter Summary ---
Author Organization [facility] Healthcare Address [address] [place] [address] Care Team Providers Care Transport Specialist Name Role Phone Supriya Hay Primary Care Provider + [phone] Helio Carrera MD Unavailable [phone] Reason for Referral * Consultation (Routine) - Pending Review Specialty Diagnoses / Procedures Referred By Melissa swanson Referred To Contact Otolaryngology Diagnoses Soreness of tongue Supriya Hay PA [address] [place] [address] Phone: tel: fax: [facility] (All Locations) Referral ID Status Reason Start Date Expiration Date Visits Requested Visits Authorized [id number] Pending Review Specialty Services Required 07/12/2024 08/11/2025 1 1 Question Answer Please select the performing region: [facility] (All Locations) [167] # of visits: 1 Comments Lesion to right side of tongue and soreness of tongue Encounter Details Date Type Department Care Team (Late st Contact Info) Description 07/12/2024 Orders Only [facility] Family Medicine [address] [place] [address] Supriya Hay PA [address] [place] [address] Soreness of tongue (Primary Dx) Social History Tobacco Use Types [...] PM CDT Legal 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 Gender Identity Female 11/16/2022 3:54 PM CDT Sexual Orientation Straight 11/16/2022 3: 54 PM CDT documented as of this encounter Progress Notes * Cait Pino LPN - 07/12/2024 1:12 PM CDT Referral placed per pt request documented in this encounter Plan of Treatment Scheduled Referrals Name Type Priority Associated Diagnoses Order Schedule Ambulatory referral to ENT Outpatient Referral Routine Soreness of tongue 1 Occurrences starting 07/12/2024 until 07/12/2025 documented as of this encounter Visit Diagnoses Diagnosis Soreness of tongue- Primary Glossodynia documented in this encounter Care Teams Transport Specialist Relationship Specialty Start Date End Date Supriya Hay PA [address] [place] [address] PCP - General Internal Medicine 02/21/20 Helio Carrera MD [address] [place] [address] Referring Physician Obstetrics and Gynecology 09/03/21 documented as of this encounter
--- OUTSIDE RECORDS SUMMARY | 2024-07-12 16:51 | XMS_ITS | Encounter Summary ---
Author Organization [facility] Address [facility] [place] [address] Care Team Providers Care Human Resources Analyst Name Role Phone Elana Weathers MD Primary Care Provider [phone] Supriya Hay Primary Care Provider [phone] Encounter Details Date Type Department Care Team (Late st Contact Info) Description 11/11/2020 Prep for Procedure [facility] [place] [address] Dylan Naidu, DO Social History Tobacco Use [...] Rule Out 02/25/2021 02/25/2021 02/25/2021 11:29 AM TABLE RUNNER COVID-19 Rule Out 03/31/2021 03/31/2021 03/31/2021 11:37 PM TABLE RUNNER COVID-19 Confirmed 03/31/2021 03/31/2021 12:34 AM TABLE RUNNER documented as of this encounter Care Teams Human Resources Analyst Relationship Specialty Start Date End Date Elana Weathers MD [address] [place] [address] PCP - General FAMILY PRACTICE 11/12/20 02/24/21 Supriya Hay PA [address] [place] [address] PCP - General PHYSICIAN PROFESSIONAL BASS FISHER 02/25/21 documented as of this encounter
--- OUTSIDE RECORDS SUMMARY | 2024-07-12 16:51 | XMS_ITS | Referral Summary ---
Author Organization [facility] Address [address] [place] [address] Care Team Providers Care Showroom Manager Name Role Phone Supriya Hay Primary Care Provider +- [phone] Helio Carrera MD Unavailable [phone] Encounters Date Type Department Care Team Description 07/12/2024 Telephone [facility] Otolaryngology [address] [place] [address] Piedad Montez, 07/12/2024 Orders Only [facility] Family Medicine [address] [place] [address] [address] [place] [address] Supriya Hay PA Nausea and vomiting, unspecified vomiting type (Primary Dx); Abdominal pain; Prediabetes 07/12/2024 Telephone [facility] Family Medicine [facility] [place] [address] Supriya Hay PA 07/12/2024 Orders Only [facility] Medicine [address] [place] [address] Road [address] [place] [address] Supriya Hay PA Soreness of tongue (Primary Dx) 07/07/2024 Telephone [facility] Medicine [address] [place] [address] Supriya Hay PA 07/03/2024 Telephone [facility] Medicine [address] [place] [address] Supriya Hay PA 05/22/2024 Results Follow-Up [facility] [address] [place] [address] Percy Hutchinson MD 05/15/2024 3:52 PM SUPERINTENDENT TESTS - 05/15/2024 11:59 PM SUPERINTENDENT TESTS Hospital Encounter [facility] PATHOLOGY [address] [place] [address] Intramural leiomyoma of uterus; Abnormal uterine bleeding; Dysmenorrhea Discharge Disposition: Discharge to home or self care 05/15/2024 12:45 PM SUPERINTENDENT TESTS - 05/15/2024 11:59 PM SUPERINTENDENT TESTS Hospital Encounter [facility] - Ultrasound [address] [place] [address], [address] [place] [address] Abnormal uterine bleeding Discharge Disposition: Discharge to home or self care 05/15/2024 2:30 PM SUPERINTENDENT TESTS Office Visit [facility] Obstetrics and Gynecology [address] [place] [address] 13th [place] [address] [place] [address] Percy Hutchinson MD Intramural leiomyoma of uterus (Primary Dx); Abnormal uterine bleeding; Dysmenorrhea; Morbid obesity (HCC) 05/12/2024 Telephone [facility] Obstetrics and Gynecology [address] [place] [address] Floor [address] [place] [address] Norma Blevins RN Follow-up 04/28/2024 Telephone [facility] Maternal- Medicine [address] [place] [address] Floor [address] [place] [address] Luciana Fuller, [facility] Ultrasound 04/18/2024 Telephone [facility] Medicine [address] [place] [address] Supriya Hay PA Medical Question/Miscellane ous 04/17/2024 Orders Only [facility] Obstetrics and Gynecology [address] [place] [address] Floor [address] [place] [address] Percy Hutchinson MD Abnormal uterine bleeding (Primary Dx) 04/14/2024 Telephone [facility] [address] [place] [address] Supriya Hay PA Medical Question/Miscellane ous 04/14/2024 10:30 AM SUPERINTENDENT TESTS Office Visit [facility] [address] [place] [address] Supriya Hay PA Subacute cough (Primary Dx); Left upper quadrant abdominal pain; Nausea; Soreness of tongue; Obesity (BMI 30.0-34.9); BMI 33.0-33.9,adult from Last 3 Months Allergies Active Allergy [...] 04/23/2024 Assessment & Plan (04/23/2024 8:00 PM SUPERINTENDENT TESTS): Patient continues to have left mid axillary line just above and below the diaphragm. Suspect this is still pain from coughing. Will send out Robitussin with codeine and ibuprofen to use as needed. If symptoms persist may need additional imaging. Subacute cough 04/23/2024 Assessment & Plan (04/23/2024 8:00 PM SUPERINTENDENT TESTS): Patient continues to have left mid axillary line just above and below the diaphragm. Suspect this is still pain from coughing. Will send out Robitussin with codeine and ibuprofen to use as needed. If symptoms persist may need additional imaging. Nausea 04/23/2024 Assessment & Plan (04/23/2024 8:02 PM SUPERINTENDENT TESTS): Persistent nausea. She has been responding to [...] 12/19/2023 Assessment & Plan (04/23/2024 8:00 PM SUPERINTENDENT TESTS): Persistent soreness of the tongue. Will make a referral to an additional ENT since was unable to connect with the previous 1. Assessment & Plan (04/17/2024 12:28 AM SUPERINTENDENT TESTS): Persistent soreness of the tongue without good [...] share as well as heart strings in [place] for support. Discussed medications including risks benefits [...] 01/24/2023 Assessment & Plan (04/17/2024 12:26 AM SUPERINTENDENT TESTS): Recent RSV positive. Has had a persistent cough. Completed prednisone 40 mg x 5 days. She has had Tessalon Perles but has not seen a significant improvement. Will send out Symbicort to see if this helps with the breathing. Continue to monitor closely Assessment & Plan (01/24/2023 9:58 PM SUPERINTENDENT TESTS): Start antibiotic, antihistamine (Claritin OR Zyrtec), Mucinex 12hour and Steroid nasal spray (Flonase). Push fluids. Rest. Supportive care. If sxs worsen or don\'t improve, pt is to followup in the office. Patient struggles with yeast infections when she is on an antibiotic so will send out a Diflucan. Obesity (BMI 30.0-34.9) 01/13/2023 Assessment & Plan (04/14/2024 11:12 AM SUPERINTENDENT TESTS): Discussed the patient's BMI. The BMI is above average. BMI management plan is completed. BMI Follow-up includes: nutrition counseling, exercise counseling and education provided. Assessment & Plan (04/05/2024 4:09 PM SUPERINTENDENT TESTS): Discussed the patient's BMI. The BMI is [...] 01/13/2023 Assessment & Plan (04/14/2024 11:12 AM SUPERINTENDENT TESTS): Discussed the patient's BMI. The BMI is above average. BMI management plan is completed. BMI Follow-up includes: nutrition counseling, exercise counseling and education provided. Assessment & Plan (04/05/2024 4:09 PM SUPERINTENDENT TESTS): Discussed the patient's BMI. The BMI is [...] She has had a negative D[facility] at [facility]. She has absolutely no swelling no [...] scheduled. Assessment & Plan (02/14/2022 3:12 PM SUPERINTENDENT TESTS): Workup is negative. Suspect benign lesion by [...] Radiology. Will follow-up pending these results. Prefers [facility] Chronic pain of left knee 06/04/2020 Left leg pain 05/24/2020 Assessment & Plan (05/24/2020 8:28 PM SUPERINTENDENT TESTS): Persistent pain after a fall about 3 [...] needed. Assessment & Plan (01/24/2023 9:57 PM SUPERINTENDENT TESTS): Encouraged patient to follow low fat/low chol diet like the Mediterranean diet. Increase good fats in the diet. Increase exercise. Monitor labs as needed. Assessment & Plan (05/24/2020 8:30 PM SUPERINTENDENT TESTS): Encouraged patient to follow fat/low chol diet like the Mediterranean diet. Increase good fats in the diet. Increase exercise. Monitor labs as needed. If not enough change with diet/exercise will need to start statin due to LDL. Migraine without aura and wi thout status migrainosus, not intractable 03/01/2020 Assessment & Plan (05/24/2020 8:29 PM SUPERINTENDENT TESTS): Continue with the Maxalt. Continue to monitor as was difficult to see pattern with this fall as it is negatively affecting her sleep patterns. Mobic may help is tension component Assessment & Plan (03/01/2020 10:07 PM SUPERINTENDENT TESTS): Discussed possible triggers. Start Maxalt prn. Get regular rest/exercise. Check labs. Bring diary to next visit with VALDEZ. Chronic midline low back pain without sciatica 1 05/02/2019 Assessment & Plan (03/01/2020 10:15 PM SUPERINTENDENT TESTS): Encouraged exercise, stretching, walking and weight loss. Resolved Problems Problem Noted Date Diagnosed Date Resolved Date Obesity (BMI 30-39.9) 01/22/20222022 Assessment & Plan (01/22/2022 2:15 PM CDT): Obesity is unchanged. Discussed the patient's BMI. The BMI is above average. BMI management plan is completed. BMI Follow-up includes: nutrition counseling, exercise counseling and education provided. BMI 34.0-34.9,adult 01/22/2022 10/25/20 23 Assessment & Plan (01/22/2022 2:15 PM [...] provided. Assessment & Plan (05/23/2020 2:13 PM SUPERINTENDENT TESTS): Obesity is unchanged. Discussed the patient's BMI. [...] provided. Assessment & Plan (05/23/2020 2:13 PM SUPERINTENDENT TESTS): Obesity is unchanged. Discussed the patient's BMI. The BMI is above average. BMI management plan is completed. BMI Follow-up includes: nutrition counseling, exercise counseling and education provided. Diabetes mellitus screening 03/01/2020 10/05/2023 Assessment & Plan (01/24/2023 9:57 PM SUPERINTENDENT TESTS): Check labs Assessment & Plan (03/01/2020 10:06 PM SUPERINTENDENT TESTS): Check labs Lipid screening 03/01/2020 10/05/2023 Assessment & Plan (01/24/2023 9:57 PM SUPERINTENDENT TESTS): Check labs Assessment & Plan (03/01/2020 10:06 PM SUPERINTENDENT TESTS): Check labs Other fatigue 03/01/2020 10/05/2023 Assessment & Plan (01/24/2023 9:57 PM SUPERINTENDENT TESTS): Probably multifactorial. Check labs and followup to re-evaluate Assessment & Plan (03/01/2020 10:07 PM SUPERINTENDENT TESTS): Probably multifactorial. Check labs and followup to re-evaluate Annual physical exam 03/01/2020 021 Assessment & Plan (03/01/2020 10:06 PM SUPERINTENDENT TESTS): Encouraged healthy lifestyle, good nutrition and exercise. Encouraged Calcium and Vitamin D and weight bearing exercise for bone health. Reviewed immunizations Reviewed age appropirate screenings. BMI 31.0-31.9,adult 02/28/2020 05/24/19 21 Assessment & Plan (02/28/2020 2:24 PM SUPERINTENDENT TESTS): Obesity is unchanged. Discussed the patient's BMI. The BMI is above average. BMI management plan is completed. BMI Follow-up includes: nutrition counseling, exercise counseling and education provided. Obesity (BMI 30-39.9) 02/28/20202020 Assessment & Plan (03/01/2020 10:06 PM SUPERINTENDENT TESTS): Obesity is unchanged. Discussed the patient's BMI. The BMI is above average. BMI management plan is completed. BMI Follow-up includes: nutrition counseling, exercise counseling and education provided Need for immunization against influenza 02/28/2020 12/03/2021 Assessment & Plan (03/01/2020 10:06 PM SUPERINTENDENT TESTS): Encouraged vaccine. Reviewed risks/ benefits. Patient refuses [...] PM CDT Legal Sex Female 12:02 AM SUPERINTENDENT TESTS Gender Identity Female 11/16/2022 3:54 PM CDT Sexual Orientation Straight 11/16/2022 3: 54 PM CDT Last Filed Vital Signs Vital Sign Reading Time Taken Comments Blood Pressure 123/71 05/15/2024 2:17 PM SUPERINTENDENT TESTS Pulse 79 05/15/2024 2:17 PM SUPERINTENDENT TESTS Temperature 36.9 C (98.4 F) 05/15/2024 2:17 PM SUPERINTENDENT TESTS Respiratory Rate 20 12/10/2022 2:27 PM CDT Oxygen Saturation 98% 05/15/2024 2:17 PM SUPERINTENDENT TESTS Inhaled Oxygen Concentration - - Weight 81.9 kg (180 lb 8 oz) 05/15/2024 2:17 PM SUPERINTENDENT TESTS Height 157.5 cm (5' 2.01 ) 05/15/2024 2:17 PM CS T Body Mass Index 33.01 05/15/2024 2:17 PM SUPERINTENDENT TESTS Plan of Treatment Not on file Procedures Procedure Name Priority Date/Time Associated Diagnosis Comments SURGICAL PATHOLOGY Routine 05/15/2024 3:52 PM SUPERINTENDENT TESTS Intramural leiomyoma of uterus Abnormal uterine bleeding Dysmenorrhea US PELVIS COMPLETE Schedule Routine, Read Routine (OP Routine) 05/15/2024 12:56 PM SUPERINTENDENT TESTS Abnormal uterine bleeding SCREENING MAMMOGRAM BILATERAL W SREE Schedule Routine, Read Routine (OP Routine) 06/01/2023 2:45 PM CDT Screening mammogram, encounter for from Last 3 Months or Most Recently Relevant to Health Maintenance Results * Surgical pathology (05/15/2024 3:52 PM SUPERINTENDENT TESTS) Tissue specimen (specimen) (Endometrial biopsy) 05/15/2024 3:52 PM SUPERINTENDENT TESTS 05/15/2024 6:50 PM SUPERINTENDENT TESTS Narrative PATHOLOGY [facility] - 05/17/2024 1:17 PM SUPERINTENDENT TESTS EPIC results best viewed via link to PDF [facility] Iman[facility] [place] [address] Note to Patients: This report may contain [...] Gender: F : 1980 (Age: 43) Address: [address] [place], [place] [address] Hospital #: [id number] Taken:05/15/2024 Received:05/15/2024 Reported: 05/17/2024 Patient Type: [facility] SPECIMEN Service: UNKNOWN Location: Physician(s): Percy Hutchinson M.D. Diagnosis: Uterus, endometrium, biopsy - Detached superficial strips of inactive pattern endometrium in a background of mucin and acute inflammation - No evidence of hyperplasia or malignancy [facility]/05/17/2024 07:51 By this signature, I attest that [...] Surgical Pathology and Flow Cytometry Departments at [facility] as part of an ongoing quality internship program and in compliance with federally mandated [...] Surgical Pathology and Flow Cytometry Departments of [facility]. It has not been cleared or approved by the U. S. Food and Drug Administration. IMAGES AND SCANNED DOCUMENTS, IF INCLUDED, ONLY VIEWABLE IN PDF VERSION OF REPORT Percy Hutchinson MD LAB PATHOLOGY ORDERABLES F inal Result PATHOLOGY [facility] IO 3rd Floor [place], [place] [phone] * US Pelvis Complete (05/15/2024 12:56 PM SUPERINTENDENT TESTS) Cul de Sac No free fluid visualized VIEWPOINT Endometrial Thickness 3.6 mm&millim eters [facility] Anatomical Region Laterality Modality Pelvis N/A Ultrasound 05/15/2024 12:5 8 PM SUPERINTENDENT TESTS Impressions 05/15/2024 4:00 PM SUPERINTENDENT TESTS The uterus is anteverted and normal in [...] in the pelvis. us Percy Hutchinson MD IM US PROCEDURES Final Re sult * Screening [...] Most Recently Relevant to Health Maintenance Insurance [facility] Advance Directives For more information, please contact: [phone] * Full Code (Latest Code Status on File) Date Activated Date Inactivated Comments 12/23/2021 8:04 AM 12/23/2021 4:20 PM Care Teams Showroom Manager Relationship Specialty Start Date End Date Supriya Hay PA [address] [place] [address] PCP - General Internal Medicine 02/21/20 Helio Carrera MD [address] [place] [address] Referring Physician Obstetrics and Gynecology 09/03/21
--- OUTSIDE RECORDS SUMMARY | 2024-07-12 16:51 | XMS_ITS | Clinical Summary ---
Author Organization [facility] Address [address] [place] [id number] Care Team Providers Care Center Mgr Name Role Phone Supriya Hay Primary Care Provider [phone] Allergies Active Allergy Reactions Criticality Noted Date [...] this topic Insurance [employer] Care Teams Center Mgr Relationship Specialty Start Date End Date Supriya Hay PA [address] [place] [address] PCP - General PHYSICIAN HAND CANDY DIPPER 02/25/21
--- OUTSIDE RECORDS SUMMARY | 2024-07-12 16:51 | XMS_ITS | Encounter Summary ---
Author Organization [facility] Address [facility] [place] [address] Care Team Providers Care Vice President Risk Management Name Role Phone Elana Weathers MD Primary Care Provider [phone] Supriya Hay Primary Care Provider [phone] Encounter Details Date Type Department Care Team (Late st Contact Info) Description 01/29/2021 Prep for Procedure [facility] [place] [address] Dylan Naidu, DO Social History Tobacco Use [...] Rule Out 02/25/2021 02/25/2021 02/25/2021 11:29 AM INFORMATION SERVICES VICE PRESIDENT COVID-19 Rule Out 03/31/2021 03/31/2021 03/31/2021 11:37 PM INFORMATION SERVICES VICE PRESIDENT COVID-19 Confirmed 03/31/2021 03/31/2021 12:34 AM INFORMATION SERVICES VICE PRESIDENT documented as of this encounter Care Teams Vice President Risk Management Relationship Specialty Start Date End Date Elana Weathers MD [address] [place] [address] PCP - General FAMILY PRACTICE 11/12/20 02/24/21 Supriya Hay PA [address] [place] [address] PCP - General PHYSICIAN HAND SPRING FORMER 02/25/21 documented as of this encounter
[2024-07-12 17:05] LABS: Beta HCG Quantitative < 2.39 mIU/ML
== END 2024-07-12 14:42 | disposition home or self-care (01) ==
LOC: ANHLAB 14:48
PROVIDERS: PCP Physician Assistant; Visit Provider Physician Assistant
DX: R10.9 Unspecified abdominal pain (principal); R11.2 Nausea with vomiting, unspecified
CPT/HCPCS: 36415; 80053; 84702; 85025

== ENCOUNTER 2024-11-11 01:55 | Emergency (ER) | payer OTHER, SELFPAY ==
--- NOTE | ~2024-11-11 | CT_ITS ---
EXAMINATION: CT abdomen pelvis w con DATE: 11/11/2024 03:03 INDICATION: Left lower quadrant pain TECHNIQUE: Computed tomography (CT) of the abdomen and pelvis was performed with 100 cc Omnipaque 350 intravenous contrast. The dose-length product was 619.44 mGy-cm. Automated exposure control and iterative reconstruction technique were employed. COMPARISON: CT dated 07/02/2024. FINDINGS: Lung bases unremarkable. Heart size normal. No significant pleural or pericardial effusion. The liver, spleen, pancreas, adrenal glands and kidneys are unremarkable. Nonobstructive bowel gas pattern. Status post cholecystectomy. There is an enlarged fibroid uterus. No significant vascular abnormality. No lymphadenopathy. No free air or free fluid. No acute osseous abnormality. IMPRESSION: 1. No acute abdominal abnormality. Reviewed, dictated and finalized at location O.
--- OUTSIDE RECORDS SUMMARY | 2024-11-11 01:57 | XMS_ITS | Continuity of Care Document ---
Author Organization [facility] Address [address] [facility] [address] [place] [address] Problems Unknown Problems Results Test Value / Unit Interpretation Reference Ran ge Lab Report Aziza Lockhart.pd f Allergies, adverse reactions, alerts No known allergies and adverse reactions Medications No administered medications reported Vital Signs No vital signs reported Social History No smoking Hx information available
--- OUTSIDE RECORDS SUMMARY | 2024-11-11 01:57 | XMS_ITS | Clinical Summary ---
Author Organization [facility] Address [facility] [place] [address] Care Team Providers Care Messaging Architect Name Role Phone Supriya Hay Primary Care Provider Allergies Active Allergy Reactions Criticality Noted Date [...] 5:02 PM CDT Height 157.5 cm (5' 2) 12/01/2021 5:02 PM CDT Body Mass Index 34.39 12/01/2021 5:02 PM CDT Plan of Treatment Health Maintenance Due Date Last Done Comments Annual Physical 1984 DTaP, Tdap and Td Vaccines ( 2 - Tdap) 12/04/1995 12/03/1995 Hepatitis C 06/03/1999 Hepatitis B Vaccines (1 of 3 - 19+ 3-dose series) 2000 HPV Vaccines (1 - 3-dose SCD M series) 2008 Cervical Cancer Screening Pa p Smear (Age 30 to 64) Every 3 Years 05/16/2019 05/16/2016 Cervical Cancer Screening Pa p with HPV Testing (Age 30 to 64) Every 5 Years 05/16/2021 05/16/2016 Cervical Cancer Screening with HPV 05/16/2021 Mammogram Screening 2021 COVID-19 Vaccine (2023-2 5 season) 2023 Meningococcal B Vaccine Aged Out No l [...] this topic Insurance [employer] Care Teams Messaging Architect Relationship Specialty Start Date End Date Supriya Hay PA [address] [place] [address] [address] [place] [address] PCP - General PHYSICIAN RUBBER MILL TENDER 02/25/21
--- OUTSIDE RECORDS SUMMARY | 2024-11-11 01:57 | XMS_ITS | Encounter Summary ---
Author Organization [facility] Address [facility] [place] [address] Care Team Providers Care Bed Worker Name Role Phone Elana Weathers MD Primary Care Provider [phone] Supriya Hay Primary Care Provider [phone] Encounter Details Date Type Department Care Team (Late st Contact Info) Description 01/29/2021 Prep for Procedure [facility] [place] [address] Dylan Naidu, DO [address] [facility] [address] [place] [address] Social History Tobacco Use Types Packs/Day Years [...] Rule Out 02/25/2021 02/25/2021 02/25/2021 11:29 AM WEIGHER AND MIXER COVID-19 Rule Out 03/31/2021 03/31/2021 03/31/2021 11:37 PM WEIGHER AND MIXER COVID-19 Confirmed 03/31/2021 03/31/2021 2 12:34 AM WEIGHER AND MIXER documented as of this encounter Care Teams Bed Worker Relationship Specialty Start Date End Date Elana Weathers MD [address] [place] [address] PCP - General FAMILY PRACTICE 11/12/20 02/24/21 Supriya Hay PA [address] [facility] [address] [place] [address] PCP - General PHYSICIAN BRAZING MACHINE TENDER 02/25/21 documented as of this encounter
--- OUTSIDE RECORDS SUMMARY | 2024-11-11 01:57 | XMS_ITS | Encounter Summary ---
Author Organization [facility] Address [facility] [place] [address] Care Team Providers Care Stage Electrician Name Role Phone Elana Weathers MD Primary Care Provider [phone] Supriya Hay Primary Care Provider [phone] Encounter Details Date Type Department Care Team (Late st Contact Info) Description 11/11/2020 Prep for Procedure [facility] [place] [address] Dylan Naidu, DO [address] [facility] [address] [place] [address] Social History Tobacco Use Types Packs/Day Years [...] Rule Out 02/25/2021 02/25/2021 02/25/2021 11:29 AM OB SCRUB TECH COVID-19 Rule Out 03/31/2021 03/31/2021 03/31/2021 11:37 PM OB SCRUB TECH COVID-19 Confirmed 03/31/2021 03/31/2021 2 12:34 AM OB SCRUB TECH documented as of this encounter Care Teams Stage Electrician Relationship Specialty Start Date End Date Elana Weathers MD [address] [place] [address] PCP - General FAMILY PRACTICE 11/12/20 02/24/21 Supriya Hay PA [address] [facility] [address] [place] [address] PCP - General PHYSICIAN DIE HOLDER 02/25/21 documented as of this encounter
[2024-11-11 02:01] VITALS: BP 141/92; PULSE 94; RESP 18; TEMP 36.6; O2SAT 99
[2024-11-11 02:08] LABS: BEDSIDEPREGUCG Negative (Negative)
[2024-11-11 02:22] LABS: Add Urine Microscopic? NO; Appearance Urine Clear (Clear); Glucose Urine UA Negative (Negative); Leukocyte Esterase Ur Negative LEU/UL (Negative); Nitrate Urine Negative (Negative); Specific Grav Ur 1.005 (1.001-1.035)
[2024-11-11 02:23] LABS: Hematocrit 39.1 % (37.0-47.0); Hemoglobin 12.9 g/dL (12.0-15.0); Immature Granulocyte Percent A 0.4 % (0-0.5); Lymphocytes Absolute Auto 2.42 K/mm3 (0.9-3.2); Mean Corpuscular HGB Conc 33.0 g/dl (32-36); Mean Corpuscular Hemoglobin 29.5 pg (26-34); Mean Corpuscular Volume 89.5 fl (80-100); Nucleated Red Blood Cells Absolute Auto 0.000 K/mm3 (0.0-0.012); Nucleated Red Blood Cells Perc 0.0 % (0.0-0.2); Platelet Count Result 327 k/mm3 (150-375); Red Blood Count 4.37 M/mm3 (4.2-5.4); White Blood Count 7.4 K/mm3 (4.5-10.0)
--- NOTE | 2024-11-11 02:23 | ED.ABDPAIN ---
HPI - Abdominal Pain General Chief Complaint: Abdominal Pain Stated Complaint: multiple complaints Time Seen by Provider: 11/11/24 01:56 History of Present Illness HPI narrative: Patient is a 44-year-old female who presents emergency department this evening complaining of left lower quadrant abdominal pain for the past 5 days. States that she does have a history of diverticulitis but this feels different. Denies any urinary symptoms including dysuria hematuria and denies any history of kidney stones. Patient also states that she has been nauseous and then she has been having some URI symptoms including bilateral ear pain and sore throat. Denies any sick contacts at home. Denies any fevers. admits to nausea but denies any vomiting episodes, denies any constipation or diarrhea. No additional symptoms or concerns at this time. Related Data Allergies Allergy/AdvReac Type Severity Reaction Status Date / Time clindamycin Allergy Unknown Unknown Verified 07/02/24 18:58 Sulfa (Sulfonamide Allergy Unknown Unknown Verified 07/02/24 18:58 Antibiotics) Review of Systems Review of Systems: All systems are reviewed and are negative unless stated otherwise in the HPI. [facility] Past Medical History Medical History Patient denies significant medical history Surgical History Surgical History History of cholecystectomy Family History Family History Mother Hypertension Family history of type 2 diabetes mellitus Father Patient's father is in good health Other Asthma Family history of thyroid disease Social History Social History Smoking status: Never smoker Second hand tobacco smoke exposure: No Alcohol intake: never Exam Narrative: General: Alert, awake, afebrile, in no acute distress. HEENT: PERRL, no rhinorrhea, no post nasal drip, oropharynx clear, clear TM bilaterally. Neck: Trachea midline, no JVD, no lymphadenopathy. Cardiovascular: Regular rate and rhythm, no murmurs, rubs or gallops, no peripheral edema. Respiratory: Clear to auscultation bilaterally, no tachypnea, no wheezing, no rhonchi, no rubs, no respiratory distress. Abdomen: Soft, nontender, nondistended, no rebound, no guarding, no peritoneal signs. Musculoskeletal: No joint swelling or deformity, normal muscle tone. Skin: No rashes or petechia, no signs of infection. Psychiatric: Alert and oriented, normal behavior and judgment for situation. Neurological: Alert and oriented to person, place, and time. Follows all commands. No focal deficits, speech is clear and fluent. Course Vital Signs Vital signs: Vital Signs Temperature 98 F 11/11/24 02:01 Pulse Rate 94 11/11/24 02:01 Respiratory Rate 18 11/11/24 02:01 Blood Pressure 141/92 H 11/11/24 02:01 Pulse Oximetry 99 11/11/24 02:01 Oxygen Delivery Room Air 11/11/24 02:01 Temperature 98 F 11/11/24 02:01 Pulse Rate 79 11/11/24 04:14 Respiratory Rate 18 11/11/24 04:14 Blood Pressure 141/61 H 11/11/24 04:14 Pulse Oximetry 99 11/11/24 04:14 Oxygen Delivery Room Air 11/11/24 02:01 MDM - Abdominal Pain MDM Narrative Medical decision making narrative: The patient was evaluated by myself in the emergency department. History is obtained from patient who is an independent historian and physical exam was performed. External medical records were reviewed at this time. IV was established and pertinent tests were ordered. Patient was administered 2mg of IV morphine and 4mg of IV Zofran at this time. Laboratory results obtained revealing no acute process. Urinalysis unremarkable. Imaging studies obtained included CT abdomen and pelvis with IV contrast which was independently interpreted by me revealing no acute process, which is pending final radiology interpretation. Differential diagnosis considerations include diverticulitis, constipation, pyelonephritis, cystitis, nephrolithiasis, acute viral syndrome. Comorbidities impacting this visit include none. I have evaluated and discussed social determinants of health with the patient that could potentially impact subsequent diagnosis and treatment plans. On repeat assessment of the patient, reevaluation revealed that the patient is doing well and is in no acute distress. Patient symptoms have improved since she arrived to our emergency department. Repeat vital signs were all reviewed and noted to be stable. Differential diagnosis and treatment plan were discussed with the patient at bedside. Patient agrees with discussion and after shared medical decision making agrees with discharge. All questions were answered to the patient's satisfaction. Patient will follow up with her PCP in 3-5 days. Patient was provided with strict return precautions and instructed to return to the emergency department if any new or worsening symptoms develop. The patient was discharged in stable condition. Lab Data 11/11/24 02:13 11/11/24 02:13 Labs: Lab Results 11/11/24 11/11/24 11/11/24 Range/Units 02:01 02:13 03:20 WBC 7.4 (4.5-10.0) K/mm3 RBC 4.37 (4.2-5.4) M/mm3 Hgb 12.9 (12.0-15.0) g/dL Hct 39.1 (37.0-47.0) % MCV 89.5 (80-100) fl MCH 29.5 (26-34) pg MCHC 33.0 (32-36) g/dl RDW 13.9 (11.5-14.5) % Plt Count 327 (150-375) k/mm3 MPV 10.7 H (7.4-10.4) fl Immature Gran % (Auto) 0.4 (0-0.5) % Neut % (Auto) 60.5 (45.5-73.1) % Lymph % (Auto) 32.8 (18.3-44.2) % [place] % (Auto) 4.5 (2.6-8.5) % Eos % (Auto) 1.4 (0-4.4) % Baso % (Auto) 0.4 (0.2-1.2) % Lymph # (Auto) 2.42 (0.9-3.2) K/mm3 [place] # (Auto) 0.3 (0.1-0.6) K/mm3 Eos # (Auto) 0.1 (0-0.3) K/mm3 Baso # (Auto) 0.0 (0.0-0.1) K/mm3 Abs Immat Gran (auto) 0.03 (0.00-0.031) K/mm3 Absolute Neuts (auto) 4.5 (1.3-6.7) K/mm3 Absolute Nucleated RBC 0.000 (0.0-0.012) K/mm3 Nucleated RBC % 0.0 (0.0-0.2) % Sodium 138 (137-145) mmol/L Potassium 4.1 (3.4-5.0) mmol/L Chloride 104 (98-107) mmol/L Carbon Dioxide 26 (22-30) mmol/L Anion Gap 8 (4-12) mmol/L BUN 11 (7-17) mg/dL Creatinine 0.78 (0.7-1.0) mg/dL Estim Creat Clear Calc 82 ml/min Estimated GFR > 60 (59 - ) Glucose 123 H (65-110) mg/dL Calcium 9.4 (8.4-10.2) mg/dL Magnesium 1.9 (1.6-2.3) mg/dL Total Bilirubin 0.3 (0.2-1.3) mg/dL AST 33 (14-36) U/L ALT 16 (6-35) U/L Alkaline Phosphatase 64 (38-126) U/L Total Protein 7.8 (6.3-8.2) g/dL Albumin 4.3 (3.5-5.1) g/dL Lipase 63 (23-300) U/L Urine Color Yellow (Yellow) Urine Appearance Clear (Clear) Urine pH 7.5 (5.0-9.0) Ur Specific Bishop 1.005 (1.001-1.035) Urine Protein Negative (Negative) mg/dL Urine Glucose (UA) Negative (Negative) mg/dL Urine Ketones Negative (Negative) mg/dL Ur Blood (Man) Negative (Negative) Urine Nitrate Negative (Negative) Urine Bilirubin Negative (Negative) Urine Urobilinogen 0.2 (<2.0) mg/dL Leukocyte Esterase Rfl Negative (Negative) MARIA ANTONIA/UL POC Urine HCG, Qual Negative (Negative) Influenza A (RT-PCR) Negative (Negative) Influenza B (RT-PCR) Negative (Negative) SARS-CoV-2 RNA (RT-PCR) Negative (Negative) Discharge Plan Discharge Clinical Impression: Abdominal pain Patient Disposition: Home Condition: Improved Instructions: Antibiotic Form, Abdominal Pain (ED) Additional Instructions: Please follow-up with the family doctor within the next 3-5 days. Return to emergency department any new or worsening symptoms develop. Patient Language: Gambian Prescriptions: No Action ondansetron HCl [Zofran] 4 mg tablet 4 mg PO Q6H PRN (Reason: nausea and vomiting) Qty: 10 0RF dicyclomine 20 mg tablet 20 mg PO QID Qty: 20 0RF dicyclomine 20 mg tablet 20 mg PO TID PRN (Reason: Abdominal Discomfort) Qty: 10 0RF ondansetron 4 mg tablet,disintegrating 4 mg PO Q8H PRN (Reason: nausea and vomiting) Qty: 12 0RF ondansetron 4 mg tablet,disintegrating 4 mg PO Q8H PRN (Reason: nausea and vomiting) Qty: 20 0RF benzonatate 200 mg capsule 200 mg PO TID PRN (Reason: cough) Qty: 21 0RF metoclopramide HCl 5 mg tablet 5 mg PO Q6H PRN (Reason: nausea and vomiting) Qty: 10 0RF dicyclomine 20 mg tablet 20 mg PO TID PRN (Reason: Abdominal Discomfort) Qty: 15 0RF metoclopramide HCl 5 mg tablet 5 mg PO Q6H PRN (Reason: nausea and vomiting) Qty: 14 0RF cyclobenzaprine 10 mg tablet 10 mg PO TID PRN (Reason: muscle spasm) Qty: 21 0RF ibuprofen 800 mg tablet 800 mg PO TID PRN (Reason: pain) Qty: 30 0RF metoclopramide HCl [Reglan] 10 mg tablet 10 mg PO Q6H PRN (Reason: nausea and vomiting) Qty: 10 0RF diclofenac potassium 50 mg tablet 50 mg PO TID PRN (Reason: pain) Qty: 30 0RF ondansetron 4 mg tablet,disintegrating 4 mg PO Q8H PRN (Reason: nausea and vomiting) Qty: 15 0RF prednisone 20 mg tablet 40 mg PO DAILY 5 Days Qty: 10 0RF ondansetron 4 mg tablet,disintegrating 4 mg PO Q8H PRN (Reason: nausea and vomiting) Qty: 10 0RF benzonatate 200 mg capsule 200 mg PO TID PRN (Reason: cough) Qty: 21 0RF Follow-up/Referrals: Satnam,DAVID Epps [Primary Care Provider, Unknown] - 3 Days Time of Disposition: 05:58
[2024-11-11] MEDS: ONDANSETRON INJ 4 MG/2 ML VIAL IV PUSH (02:30)
[2024-11-11 02:42] LABS: Alanine Aminotransferase 16 U/L (6-35); Albumin Level 4.3 g/dL (3.5-5.1); Alkaline Phosphatase 64 U/L (38-126); Anion Gap 8 mmol/L (4-12); Aspartate Amino Transferase 33 U/L (14-36); Bilirubin,Total 0.3 mg/dL (0.2-1.3); Blood Urea Nitrogen 11 mg/dL (7-17); Calcium 9.4 mg/dL (8.4-10.2); Carbon Dioxide 26 mmol/L (22-30); Chloride 104 mmol/L (98-107); Estimated CRCL calculation 82 ml/min; Estimated Glomerular Filt Rate > 60; Glucose 123 mg/dL (65-110); Lipase 63 U/L (23-300); Magnesium 1.9 mg/dL (1.6-2.3); Potassium 4.1 mmol/L (3.4-5.0); Sodium 138 mmol/L (137-145); Total Protein 7.8 g/dL (6.3-8.2)
[2024-11-11] MEDS: MORPHINE SULFATE (*CRX) 2 MG/ML INJ IV PUSH (03:15)
[2024-11-11 04:14] VITALS: BP 141/61; PULSE 79; RESP 18; O2SAT 99
[2024-11-11 04:18] LABS: Influenza A QL RT-PCR Negative (Negative); Influenza B QL RT-PCR Negative (Negative); SARS-CoV-2 RNA PCR Negative (Negative)
[2024-11-11] MEDS: METOCLOPRAMIDE HCL INJ 10 MG/2 ML VIAL IV PUSH (04:54)
[2024-11-11 06:15] VITALS: BP 128/85; PULSE 83; RESP 18; O2SAT 100
== END 2024-11-11 06:16 | disposition home or self-care (01) ==
PROVIDERS: Emergency Provider Emergency Medicine; PCP Physician Assistant
DX: R10.32 Left lower quadrant pain (principal); Z90.49 Acquired absence of other specified parts of digestive tract
CPT/HCPCS: 36415; 74177; 80053; 81003; 81025; 83690; 83735; 85025; 87636; 96374; 96375; 99284; J2270; J2405; J2765; Q9967